=== PATIENT | male | born 1935 | race Caucasian/White ===

== ENCOUNTER → 2017-09-27 07:02 | Outpatient (CLI) | payer MEDICARE, SELFPAY ==
[2017-09-27 10:35] LABS: ALB/GLOB Ratio 0.9 RATIO (0.9-2.4); AST(SGOT) 18 U/L (15-37); Alanine Aminotransfer ALT/SGPT 17 U/L (16-61); Albumin, Serum 3.4 g/dL (3.2-5.0); Alkaline Phosphatase 102 U/L (45-117); Anion Gap 7 (5-15); BUN 16 mg/dL (7-18); BUN/Creat Ratio 14.2 RATIO (10-20); Bilirubin, Direct 0.16 mg/dL (0.00-0.30); Calcium,Total 8.9 mg/dL (8.5-10.1); Chloride 102 mmol/L (98-107); Cholesterol 139 mg/dL (200); Creatinine, Serum 1.13 mg/dL (0.70-1.30); EST Glomerular Filtration Rate 66 mL/min (>60); Est Glom Filt Rate - Afr Amer 80 mL/min (>60); Globulin 3.7 g/dL (2.2-4.2); Glucose 81 mg/dL (74-106); High Density Lipoprotein 40 mg/dL; Potassium 4.5 mmol/L (3.5-5.1); Protein, Total 7.1 g/dL (6.4-8.2); Sodium Level 139 mmol/L (136-145); Triglycerides 187 mg/dL; Very Low Density Lipoprotein 37 mg/dL (5-40)
== END ==
PROVIDERS: Family Provider Family Medicine; PCP Family Medicine; Visit Provider Family Medicine
DX: I25.10 Atherosclerotic heart disease of native coronary artery without angina pectoris (principal); I70.219 Atherosclerosis of native arteries of extremities with intermittent claudication, unspecified extremity; I49.1 Atrial premature depolarization; I45.10 Unspecified right bundle-branch block; E78.5 Hyperlipidemia, unspecified; R00.2 Palpitations; Z95.1 Presence of aortocoronary bypass graft; Z79.899 Other long term (current) drug therapy
CPT/HCPCS: 36415; 80053; 80061; 82248

== ENCOUNTER → 2017-10-05 09:14 | Outpatient (CLI) | payer MEDICARE, SELFPAY ==
--- NOTE | 2017-10-05 09:14 | DT_ITS ---
This patient was seen during an EMR downtime October 02, 2017 - October 09, 2017. This patient may have a combination of paper and electronic documentation or all paper documentation. All documentation is viewable within the e-chart portion of [employer] for each patient visit.
--- NOTE | 2017-10-05 09:19 | RAD_ITS ---
STUDY: X-RAY CHEST REASON FOR EXAM: Male, 81 years old. COPD. TECHNIQUE: PA and lateral views of the chest. COMPARISON: Chest, April 14, 2017. CT of the chest, April 18, 2017. FINDINGS: The lungs are mildly hyperexpanded. There is chronic density in the left midlung consistent with thickening of the oblique fissure as seen on the CT scan. There is left-sided pleural thickening with blunting left costophrenic angle unchanged from prior exam Sternal cerclage wires are present from a prior sternotomy. The heart is normal in size. Normal mediastinum and gareth. Normal visualized pulmonary arteries. There is atherosclerotic calcification of the aortic arch with tortuosity. There are diffuse degenerative changes of the visualized thoracic spine. There is degenerative osteoarthritis of the bilateral shoulders. There is no demonstrated abnormality of the visualized soft tissue structures of the upper abdomen. RAD/Chest PA and Lateral IMPRESSION: 1. Stable density in the left mid lung. This correlates with an area of thickening along the oblique fissure seen on the CT scan. 2. Stable left pleural thickening. 3. Evidence of prior median sternotomy. Electronically Signed: Conrad Tony DO at 10:23 EDT Tel [phone], Service support ,
== END ==
PROVIDERS: Family Provider Family Medicine; PCP Family Medicine; Visit Provider Family Medicine
DX: J44.1 Chronic obstructive pulmonary disease with (acute) exacerbation (principal)
CPT/HCPCS: 71046

== ENCOUNTER → 2018-10-15 | Outpatient (CLI) | payer MEDICARE, SELFPAY ==
[2018-04-06 09:00] VITALS: BMI 29.5
[2018-10-15 11:09] LABS: AST(SGOT) 19 U/L (15-37); Alanine Aminotransfer ALT/SGPT 20 U/L (16-61); Albumin, Serum 3.2 g/dL (3.2-5.0); Alkaline Phosphatase 82 U/L (45-117); Bilirubin, Direct 0.15 mg/dL (0.00-0.30); Cholesterol 154 mg/dL (200); Globulin 3.7 g/dL (2.2-4.2); High Density Lipoprotein 42 mg/dL; Protein, Total 6.9 g/dL (6.4-8.2); Triglycerides 223 mg/dL; Very Low Density Lipoprotein 45 mg/dL (5-40)
== END | disposition home or self-care (01) ==
PROVIDERS: Family Provider Family Medicine; PCP Family Medicine; Referring Provider Internal Medicine Cardiovascular Disease; Visit Provider Internal Medicine Cardiovascular Disease
DX: I70.219 Atherosclerosis of native arteries of extremities with intermittent claudication, unspecified extremity (principal); E78.5 Hyperlipidemia, unspecified
CPT/HCPCS: 36415; 80061; 80076

== ENCOUNTER → 2018-11-05 | Outpatient (CLI) | payer MEDICARE, SELFPAY ==
[2018-11-05 14:23] VITALS: BMI 30.5
--- NOTE | 2018-11-05 15:08 | RAD_ITS ---
STUDY: X-RAY CHEST REASON FOR EXAM: Male, 83 years old. Shortness of breath. Dyspnea. TECHNIQUE: Frontal and lateral views of the chest. COMPARISON: October 05, 2017 FINDINGS: Stable hyperexpansion, mild diffuse interstitial pattern and noncalcified partially imaged opacity in the left midlung zone. Stable left pleural thickening. Cardiomegaly with sternotomy wires unchanged. Normal mediastinum and gareth. Normal visualized pulmonary arteries. Aortic tortuosity with calcification unchanged. Stable thoracic spondylosis. Normal visualized ribs, clavicles, and shoulders. There is no demonstrated abnormality of the visualized soft tissue structures of the upper abdomen. RAD/Chest PA and Lateral IMPRESSION: Stable appearance of the chest with no acute finding. Electronically Signed: Ned Gonzales MD at 15:37 EDT , Service support ,
== END | disposition home or self-care (01) ==
LOC: RAD 15:07
PROVIDERS: Family Provider Family Medicine; PCP Family Medicine; Referring Provider Internal Medicine Cardiovascular Disease; Visit Provider Internal Medicine Cardiovascular Disease
DX: I25.10 Atherosclerotic heart disease of native coronary artery without angina pectoris (principal); R60.9 Edema, unspecified; Z95.1 Presence of aortocoronary bypass graft
CPT/HCPCS: 71046

== ENCOUNTER → 2018-11-22 | Outpatient (CLI) | payer MEDICARE, SELFPAY ==
[2018-11-05 14:23] VITALS: BMI 30.5
[2018-11-22 10:20] LABS: Hematocrit 42.5 % (40-54); Hemoglobin 14.3 g/dL (13.0-16.5); Mean Corp Hgb Conc 33.6 g/dL (32-36); Mean Corpuscular Hgb 31.4 pg (27.0-32.0); Mean Corpuscular Volume 93.2 fL (80-94); Mean Platelet Vol. 9.3 fl (6.2-12.0); Platelet Count 279 K/mm3 (150-450); RBC Distribution Width CV 13.4 % (11.6-14.6); RBC Distribution Width SD 46.1 fl (35.1-43.9); Red Blood Count 4.56 M/mm3 (4.6-6.2); White Blood Count 9.1 K/mm3 (4.4-11.0)
[2018-11-22 10:34] LABS: BNP,B-Type NATRIURETIC PEPTIDE 73.5 pg/mL (0-100)
[2018-11-22 10:35] LABS: ALB/GLOB Ratio 0.8 RATIO (0.9-2.4); AST(SGOT) 18 U/L (15-37); Alanine Aminotransfer ALT/SGPT 19 U/L (16-61); Albumin, Serum 3.2 g/dL (3.2-5.0); Alkaline Phosphatase 85 U/L (45-117); Anion Gap 8 (5-15); BUN 25 mg/dL (7-18); BUN/Creat Ratio 19.8 RATIO (10-20); Calcium,Total 9.6 mg/dL (8.5-10.1); Chloride 103 mmol/L (98-107); Creatinine, Serum 1.26 mg/dL (0.70-1.30); EST Glomerular Filtration Rate 58 mL/min (>60); Est Glom Filt Rate - Afr Amer 71 mL/min (>60); Glucose 85 mg/dL (74-106); Magnesium 2.1 mg/dL (1.6-2.6); Potassium 4.6 mmol/L (3.5-5.1); Protein, Total 7.2 g/dL (6.4-8.2); Sodium Level 139 mmol/L (136-145); Thyroid Stim Hormone (TSH) 1.32 uIU/mL (0.358-3.74)
== END | disposition home or self-care (01) ==
PROVIDERS: Family Provider Family Medicine; PCP Family Medicine; Referring Provider Internal Medicine Cardiovascular Disease; Visit Provider Internal Medicine Cardiovascular Disease
DX: E07.9 Disorder of thyroid, unspecified (principal); M79.89 Other specified soft tissue disorders; J44.1 Chronic obstructive pulmonary disease with (acute) exacerbation; I70.219 Atherosclerosis of native arteries of extremities with intermittent claudication, unspecified extremity; R60.9 Edema, unspecified; Z95.1 Presence of aortocoronary bypass graft
CPT/HCPCS: 36415; 80053; 83735; 83880; 84443; 85027

== ENCOUNTER → 2018-11-27 | Outpatient (CLI) | payer MEDICARE, SELFPAY ==
[2018-11-05 14:23] VITALS: BMI 30.5
--- NOTE | 2018-11-27 10:50 | ECHOCS_ITS ---
Reason For Study: DYSPNEA/SOB Procedure This was a 2D Doppler, Color Flow transthoracic echocardiogram. The study was technically difficult. Contrast injection was performed. Exam performed in department. Left Ventricle Normal LV size. Left ventricular systolic function is normal. The estimated ejection fraction is 60 %. No evidence for diastolic dysfunction. No regional wall motion abnormalities noted. Right Ventricle Normal RV size. Normal systolic function. Atria Normal left atrium. Normal right atrium. No doppler evidence for ASD. Mitral Valve There is no mitral annular calcification. Normal mitral valve. Trivial mitral valve insufficiency. Tricuspid Valve Normal tricuspid valve. Trivial tricuspid valve insufficiency. Right ventricular systolic pressure estimated to be 24 mmHg. Aortic Valve Mild diffuse aortic valve thickening. Mild (1+) aortic valve insufficiency. Pulmonic Valve The pulmonic valve is not well visualized. Great Vessels Mildly dilated aortic root. Pericardium/Pleural No pericardial effusion. Medication 22 gauge I.V. with prn adaptor inserted into right arm. Diluted definity 5ml given slow IV push to enhance endocardial definition. MMode/2D Measurements & Calculations LVIDd: 4.7 cm IVSd: 1.1 cm Ao root diam: 3.9 cm LVIDs: 2.8 cm LVPWd: 1.1 cm FS: 39.9 % LAV(MOD-bp): 45.7 ml LVAd ap4: 26.6 cm2 SV(MOD-sp4): 53.2 ml LAV(MOD-bp) Indexed: 20.8 ml/m2 EDV(MOD-sp4): 81.3 ml LAV(MOD-sp2): 52.2 ml EDV(sp4-el): 86.0 ml LAV(MOD-sp4): 34.3 ml LVAs ap4: 14.3 cm2 ESV(MOD-sp4): 28.2 ml ESV(sp4-el): 28.0 ml EF(MOD-sp4): 65.4 % EF(sp4-el): 67.5 % SV(sp4-el): 58.0 ml LA A4 area: 14.2 cm2 LA dimension(2D): 4.1 cm RA A4 area: 14.5 cm2 Time Measurements MV dec time: 0.24 sec Doppler Measurements & Calculations MV E max mani: 37.7 cm/sec Lat Peak E' Mani: 7.2 cm/sec Med Peak E' Mani: 4.8 cm/sec MV A max mani: 69.9 cm/sec E/E' lat: 5.2 E/E' med: 7.8 MV E/A: 0.54 Ao V2 max: 106.8 cm/sec LV V1 max: 105.8 cm/sec PA V2 max: 65.1 cm/sec Ao max P.6 mmHg LV V1 max P.5 mmHg TR max mani: 226.6 cm/sec TR max P.5 mmHg Interpretation Summary The study was technically difficult. Contrast injection was performed. Left ventricular systolic function is normal. The estimated ejection fraction is 60 %. Trivial mitral valve insufficiency. Trivial tricuspid valve insufficiency. Mild diffuse aortic valve thickening. Mild (1+) aortic valve insufficiency. Mildly dilated aortic root. Right ventricular systolic pressure estimated to be 24 mmHg. No evidence for diastolic dysfunction. Ordering Physician: Garth Troy Referring Physician: MARIELA MARINO Performed By: Eda Watts RDCS
== END | disposition home or self-care (01) ==
PROVIDERS: Family Provider Family Medicine; PCP Family Medicine; Referring Provider Internal Medicine Cardiovascular Disease; Visit Provider Internal Medicine Cardiovascular Disease
DX: R06.00 Dyspnea, unspecified (principal); R06.02 Shortness of breath; I25.10 Atherosclerotic heart disease of native coronary artery without angina pectoris
CPT/HCPCS: 93306; Q9957; A4216; C8929

== ENCOUNTER → 2019-11-06 07:09 | Outpatient (CLI) | payer MEDICARE, SELFPAY ==
[2019-05-16 10:04] VITALS: BMI 30.1
[2019-11-06 10:32] LABS: AST(SGOT) 18 U/L (15-37); Alanine Aminotransfer ALT/SGPT 19 U/L (16-61); Albumin, Serum 3.3 g/dL (3.2-5.0); Alkaline Phosphatase 73 U/L (45-117); Bilirubin, Direct 0.15 mg/dL (0.00-0.30); Cholesterol 163 mg/dL (200); Globulin 3.8 g/dL (2.2-4.2); High Density Lipoprotein 39 mg/dL; Protein, Total 7.1 g/dL (6.4-8.2); Triglycerides 334 mg/dL; Very Low Density Lipoprotein 67 mg/dL (5-40)
== END ==
PROVIDERS: PCP Family Medicine; Referring Provider Internal Medicine Cardiovascular Disease; Visit Provider Internal Medicine Cardiovascular Disease
DX: E78.5 Hyperlipidemia, unspecified (principal)
CPT/HCPCS: 36415; 80061; 80076

== ENCOUNTER → 2019-12-02 08:49 | Outpatient (CLI) | payer MEDICARE, SELFPAY ==
[2019-11-11 15:35] VITALS: BMI 30.4
--- NOTE | 2019-12-02 08:49 | ECHOCS_ITS ---
Reason For Study: CAD Procedure This was a 2D Doppler, Color Flow transthoracic echocardiogram. The study was technically difficult. Contrast injection was performed. Exam performed in department. Left Ventricle Normal LV size. Left ventricular systolic function is normal. The estimated ejection fraction is 65 %. No evidence for diastolic dysfunction. No regional wall motion abnormalities noted. Right Ventricle Normal RV size. Normal systolic function. Atria Normal left atrium. Normal right atrium. No doppler evidence for ASD. Mitral Valve There is no mitral annular calcification. Normal mitral valve. Trivial mitral valve insufficiency. Tricuspid Valve Normal tricuspid valve. Trivial tricuspid valve insufficiency. Right ventricular systolic pressure estimated to be 33 mmHg. Aortic Valve Trisinus/trileaflet aortic valve. Mild focal aortic valve calcification. Trivial aortic valve insufficiency. Pulmonic Valve The pulmonic valve is not well visualized. Great Vessels Mildly dilated aortic root. Pericardium/Pleural No pericardial effusion. Medication 22 gauge I.V. with prn adaptor inserted into right arm. Diluted definity 2.0ml given slow IV push to enhance endocardial definition. MMode/2D Measurements & Calculations LVIDd: 4.6 cm IVSd: 0.85 cm Ao root diam: 4.0 cm LVIDs: 2.4 cm LVPWd: 0.90 cm FS: 49.1 % LAV(MOD-sp4): 31.3 ml LVAd ap4: 29.1 cm2 SV(MOD-sp4): 55.1 ml EDV(MOD-sp4): 87.3 ml EDV(sp4-el): 89.5 ml LVAs ap4: 16.0 cm2 ESV(MOD-sp4): 32.2 ml ESV(sp4-el): 34.0 ml EF(MOD-sp4): 63.1 % EF(sp4-el): 62.1 % SV(sp4-el): 55.6 ml LA A4 area: 14.5 cm2 LA dimension(2D): 3.9 cm Time Measurements MV dec time: 0.23 sec Doppler Measurements & Calculations MV E max mani: 68.0 cm/sec Lat Peak E' Mani: 5.0 cm/sec Med Peak E' Mani: 5.4 cm/sec MV A max mani: 86.5 cm/sec E/E' lat: 13.5 E/E' med: 12.7 MV E/A: 0.79 Ao V2 max: 121.4 cm/sec LV V1 max: 110.7 cm/sec TR max mani: 271.9 cm/sec Ao max P.9 mmHg LV V1 max P.9 mmHg TR max P.1 mmHg Interpretation Summary The study was technically difficult. Contrast injection was performed. Left ventricular systolic function is normal. The estimated ejection fraction is 65 %. Trivial mitral valve insufficiency. Trivial tricuspid valve insufficiency. Mild focal aortic valve calcification. Trivial aortic valve insufficiency. Mildly dilated aortic root. Right ventricular systolic pressure estimated to be 33 mmHg. No evidence for diastolic dysfunction. Ordering Physician: Garth Troy Referring Physician: MARIELA MARINO Performed By: Li Boland, RASHEEDCS, RVT
== END ==
PROVIDERS: PCP Family Medicine; Referring Provider Internal Medicine Cardiovascular Disease; Visit Provider Internal Medicine Cardiovascular Disease
DX: I25.10 Atherosclerotic heart disease of native coronary artery without angina pectoris (principal); R07.9 Chest pain, unspecified; I70.219 Atherosclerosis of native arteries of extremities with intermittent claudication, unspecified extremity; R00.1 Bradycardia, unspecified; E78.5 Hyperlipidemia, unspecified; Z95.1 Presence of aortocoronary bypass graft
CPT/HCPCS: 93306; Q9957; A4216; C8929

== ENCOUNTER → 2020-02-20 09:01 | Outpatient (CLI) | payer MEDICARE, SELFPAY ==
[2019-11-11 15:35] VITALS: BMI 30.4
--- NOTE | 2020-02-20 09:06 | RAD_ITS ---
HISTORY: PATIENT FELL ABOUT 1 WEEK AGO AND STRAINED NECK. PAIN IN LEFT SIDE OF NECK, PATIENT STATES HAS HAD A HEADACHE SINCE THEN WELL. ADDITIONAL HISTORY: None provided. EXAMINATION/TECHNIQUE: XR Spine Cervical 4 or 5 Views Number of images including paperwork: 7 COMPARISON: None FINDINGS: VERTEBRAE: No acute fracture. VERTEBRAL ALIGNMENT: No traumatic subluxation. DISKS AND JOINTS: Moderate discogenic degenerative changes at C5-6 and C6-7. Mild discogenic degenerative changes elsewhere in the cervical spine. Facet arthropathy and uncovertebral degenerative changes. Moderate multilevel bilateral foraminal stenosis. SOFT TISSUES: Unremarkable paraspinous soft tissues. Cardiovascular calcifications. RAD/Cerv Spine 4 or 5 Views IMPRESSION: 1. No acute osseous abnormality. 2. Cervical spondylosis. at 0011 Reported and signed by: Carrie Jones MD Electronically Signed: Carrie Jones MD at 0:11 EDT Tel , Service support ,
== END ==
LOC: MTRAD 09:03
PROVIDERS: PCP Family Medicine; Referring Provider Family Medicine; Visit Provider Family Medicine
DX: M54.2 Cervicalgia (principal)
CPT/HCPCS: 72050

== ENCOUNTER 2020-02-26 17:39 | Observation (INO) | payer MEDICARE, SELFPAY ==
[2019-11-11 15:35] VITALS: BMI 30.4
[2020-02-26] VITALS (11 sets, daily range): BP systolic 178–217; BP diastolic 82–103; PULSE 63–74; RESP 18–26; TEMP 36.3–36.7; O2SAT 94–98; BMI 30.4; BMI 29.8
--- NOTE | 2020-02-26 17:42 | CT_ITS ---
STUDY: CT BRAIN WITHOUT CONTRAST REASON FOR EXAM: Male, 84 years old. Altered mental status. Stroke alert. RADIATION DOSAGE (If Supplied By Facility): CTDIvol = ( 44.99 ) mGy, DLP = ( 863.60 ) mGycm TECHNIQUE: Transaxial CT imaging of the brain was performed without administration of intravenous contrast material. Individualized dose optimization techniques were used for this CT. COMPARISON: None. FINDINGS: There is no acute bleed or infarct. There are chronic ischemic and atrophic changes. The ventricles are normal in configuration. There is no hydrocephalus. The visualized paranasal sinuses are clear. The mastoid air cells are well aerated. There is no skull fracture. CT/Brain/Head without Contrast IMPRESSION: No acute intracranial abnormality. Chronic ischemic and atrophic changes. N.B. : The above information has been verbally conveyed by Vasu Sierra to Carlitos Angulo on 02/26/2020 18:02:00 (ET). Electronically Signed: Vasu Sierra, at 18:03 EDT Tel , Service support ,
--- NOTE | 2020-02-26 17:42 | EKG12_ITS ---
Test Reason : STROKE Blood Pressure : / mmHG Vent. Rate : 067 BPM Atrial Rate : 067 BPM P-R Int : 174 ms QRS Dur : 160 ms QT Int : 412 ms P-R-T Axes : 067 009 035 degrees QTc Int : 435 ms Normal sinus rhythm Right bundle branch block Abnormal ECG Confirmed by APRIL MACHUCA, SHAZIA ([id number]), social media editor RONDA BLAIR ([id number]) on 03/05/2020 12:45:26 PM Referred By: Kashif Kuhn Confirmed By:TIEN CHEN MD
--- NOTE | 2020-02-26 17:42 | CT_ITS ---
STUDY: CTA HEAD AND NECK WITH CONTRAST REASON FOR EXAM: Male, 84 years old. CVA RADIATION DOSAGE (If Supplied By Facility): CTDIvol = ( 28.25 ) mGy, DLP = ( 779.24 ) mGycm TECHNIQUE: CT angiography was performed with a multi-detector CT scanner. Data acquisition was obtained from the skull base through the vertex following intravenous administration of IV 100mL Isovue-370. MIP images were reconstructed from the axial data set. Post-processing of the angiographic images was performed, with multiplanar reformation and 3D reconstruction. Individualized dose optimization techniques were used for this CT. COMPARISON: Head CT dated February 26, 2020 FINDINGS: Normal bilateral petrous carotid arteries. There is calcified plaque formation of the right cavernous carotid artery, with a mild stenosis (less than 50%). There is calcified plaque formation of the left cavernous carotid artery, with a mild stenosis (less than 50%). Normal right A1 segments of the anterior cerebral artery. Normal left A1 segments of the anterior cerebral artery. Normal intact anterior communicating artery (ACOM). Normal bilateral A2 segments of the anterior cerebral arteries. Normal right M1 and M2 segments of the middle cerebral arteries, with a normal M1 bifurcation. Normal left M1 and M2 segments of the middle cerebral arteries, with a normal M1 bifurcation. There is non-visualization of the right posterior communicating artery (PCOM). There is non-visualization of the left posterior communicating artery (PCOM). Normal bilateral vertebral arteries. Normal basilar artery with a normal basilar bifurcation. The visualized bilateral superior cerebellar (SCA) arteries are normal. Normal bilateral P1, P2 and visualized P3 segments of the posterior cerebral arteries. There is no demonstrated aneurysm of the [place] of [place] or hemodynamically significant stenosis of the major intracranial arteries. NECK: Median sternotomy and CABG changes. AORTIC ARCH: There is atherosclerotic calcific plaque formation of the aortic arch and great vessels arising from the aortic arch, without a hemodynamically significant stenosis. There is a normal origin of the brachiocephalic, left common carotid, and left subclavian arteries. Normal origins of the brachiocephalic and left common carotid. Mild atherosclerotic plaque is present at the subclavian origin. RIGHT CAROTID ARTERIES: Normal right common carotid artery (CCA). There is extensive atherosclerotic plaque formation with severe narrowing of the right carotid bulb with a hemodynamically significant stenosis. There is mild atherosclerotic plaque formation of the origin of the right internal carotid artery with less than 50% cross sectional diameter stenosis. Normal visualized cervical portion of the right internal carotid artery. Normal origin of the right external carotid artery (ECA). LEFT CAROTID ARTERIES: There is moderate atherosclerotic plaque formation of the common carotid artery, with a 50-70% focal stenosis. There is moderate atherosclerotic plaque formation with moderate narrowing of the carotid bulb. There is mild atherosclerotic plaque formation of the origin of the left internal carotid artery with less than 50% cross sectional diameter stenosis. Normal visualized cervical portion of the left internal carotid artery. Normal origin of the left external carotid artery (ECA). VERTEBRAL ARTERIES: Normal bilateral vertebral arteries. The visualized soft tissue structures of the neck are unremarkable. Degenerative changes are seen in the cervical spine. 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 CT/CTA Head AND Neck W/ Contrast IMPRESSION: 1. There is no demonstrated aneurysm of the [place] of [place] or hemodynamically significant stenosis of the major intracranial arteries.. 2. There is extensive atherosclerotic plaque formation with severe narrowing of the right carotid bulb with a hemodynamically significant stenosis. 3. There is moderate atherosclerotic plaque formation of the common carotid artery, with a 50-70% focal stenosis. There is moderate atherosclerotic plaque formation with moderate narrowing of the carotid bulb. N.B. : The above information has been verbally conveyed by Colton Velázquez MD to Carlitos Nicole DO, MD, on 02/26/2020 18:21:53 (ET). Electronically Signed: Colton Velázquez MD at 18:23 EDT , Service support ,
--- NOTE | 2020-02-26 17:43 | ED.VIS.STROK ---
History of Present Illness Chief Complaint: Neuro S/Sx Informant: Patient Onset: Today Timing: Continuous Quality and Location: Right Arm Parasthesia, Right Leg Parasthesia, Expressive Aphasia Onset: 30 minutes prior to arrival Current Severity: Gone Associated Symptoms: Headache. Negative for: Nausea, Vomiting, Chest Pain Narrative: Patient is an 84-year-old male who presents with expressive aphasia and paresthesias to his right upper and lower extremity that began today approximately 30 minutes prior to arrival. Patient admits to some mild weakness of his right upper and lower extremities. Patient states his symptoms have now completely resolved. reports that the patient was having some drooping of his right eyelid. Patient denies any visual changes. Patient denies any headaches. Patient denies any chest pain or shortness of breath. Capacity - Capacity Assessment Tool Can the patient make a choice & communicate that choice?: Yes Can the patient understand benefits, risks and alternatives?: Yes Can the patient make a logical, rational choice?: Yes Is the choice the patient makes consistent w/ their values?: Yes Past Medical History - Allergies and Home Meds Allergies/Adverse Reactions: Allergies Penicillins Allergy (Verified 02/26/20 19:00) [facility] Primary Care Physician: Carlitos King MD [Primary Care Provider] - Surgical History: coronary bypass surgery - x 4., - - ORIF right femur fracture using long intramedullary raulito. Smoking Status: Former smoker - Family History Paternal Family History: Family History (Last Reviewed 11/11/19 @ 15:37 by Sis Patel) Father Myocardial infarction, Onset Age: 68 Brother CAD (coronary artery disease) Myocardial infarction Hx of CABG Brother CHF (congestive heart failure) Family History: Reports: - Maternal Family History: Family History (Last Reviewed 11/11/19 @ 15:37 by Sis Patel) Father Myocardial infarction, Onset Age: 68 Brother CAD (coronary artery disease) Myocardial infarction Hx of CABG Brother CHF (congestive heart failure) Family History: Reports: No pertinent history Review of Systems General: Denies: Chills, Fever Eyes: Denies: Visual changes - bilaterally, Blurred Vision - bilaterally Cardiovascular: Denies: Chest pain, Palpitations Respiratory: Denies: Dyspnea, Cough Gastrointestinal: Denies: Nausea, Vomiting Genitourinary: Denies: Dysuria, Hematuria Musculoskeletal: Denies: Neck pain, Back pain Skin: Denies: Rash, Abscess Neurological: Reports: Headache Allergy: Denies: Uticaria, Swelling of the mouth STROKE Inital Vital Signs reviewed: Yes General: Well nourished, Well developed Head: Normocephalic, Atraumatic Eyes: Perrl, EOMI ENT: Moist mucous membranes Neck: Supple, No JVD Cardiovascular: Regular rate, Regular rhythm Respiratory: No distress, CTA bilaterally Abdomen: Soft, Nontender, Nondistended, Normal bowel sounds Neurological: Alert, Oriented x3, Cranial nerves II-XII grossly intact, Normal Strength, Normal Sensation Psychological: Normal affect, Normal Mood Diagnostic/Tx/Re-eval CT scan of the brain was obtained. There is no acute infarct or bleed. CTA of the head and neck was obtained. There is severe narrowing of the right carotid bulb with hemodynamically significant stenosis. There is moderate plaque formation of the left carotid artery with 50 to 70% focal stenosis. This was interpreted by the radiologist and reviewed by myself. Chest X-Ray - ED: 1 View, Chronic Changes - Rhythm Strip Rhythm Strip: Sinus Rhythm Rate: 67 Ectopy: None - EKG Initial EKG Interpretation: Sinus Rhythm, RBBB Prior: Unchanged - Medical Decision Making Stroke Team Activated: Yes Reviewed Inclusion/Exclusion criteria: Yes Was Patient considered for Endovascular Intervention?: No IV Alteplase (t-PA) Administered: No Stroke neurologist from [facility] evaluated the patient remotely. Since the patient's symptoms have resolved, this is a TIA and TPA is not indicated. Patient will be admitted for TIA work-up. Case was discussed with Dr. Kuhn. He will admit the patient to his service. Patient understood and was agreeable with the plan. All questions were answered. Critical care time (excluding procedures): 30-74 minutes ED Disposition - Plan for ED Patient: Disposition: Acute Care Hospital [facility] Diagnosis: Transient ischemic attack Referrals: Carlitos King MD [Primary Care Provider] -
[2020-02-26 17:51] LABS: Absolute Lymphocyte Count 2.04 X10^3/uL (0.83-4.51); Absolute Neutrophil Count 5.4 X10^3/uL (2.0-7.7); Basophil# 0.04 X10^3/uL; Basophil% 0.5 % (0-1); Eosinophil# 0.11 X10^3/uL; Eosinophils% 1.3 % (0-5); Hematocrit 44.8 % (40-54); Hemoglobin 15.2 g/dL (13.0-16.5); Lymphocyte # 2.04 X10^3/ul (4.0); Lymphocyte % 23.7 % (19-41); Mean Corp Hgb Conc 33.9 g/dL (32-36); Mean Corpuscular Hgb 31.8 pg (27.0-32.0); Mean Corpuscular Volume 93.7 fL (80-94); Mean Platelet Vol. 9.1 fl (6.2-12.0); Monocyte# 0.97 X10^3/uL; Monocyte% 11.3 % (0-10); NRBC Flagged by Analyzer 0 % (0-5); Neutrophil # 5.42 X10^3/uL (2.7-7.7); Neutrophil % 62.9 % (47-70); Platelet Count 245 K/mm3 (150-450); RBC Distribution Width CV 13.7 % (11.6-14.6); RBC Distribution Width SD 46.5 fl (35.1-43.9); Red Blood Count 4.78 M/mm3 (4.6-6.2); White Blood Count 8.6 K/mm3 (4.4-11.0)
[2020-02-26] MEDS: Labetalol (Prefilled) 20 MG/4 ML IV (17:55)
[2020-02-26 18:04] LABS: Partial Thromboplast Time 31.6 Seconds (24.1-36.2); Prothrombin Time (Protime)PT. 12.5 SECONDS (11.7-14.9)
[2020-02-26 18:08] LABS: Anion Gap 0 (5-15); BUN 17 mg/dL (7-18); BUN/Creat Ratio 13.8 RATIO (10-20); Calcium,Total 9.5 mg/dL (8.5-10.1); Chloride 104 mmol/L (98-107); Creatinine, Serum 1.23 mg/dL (0.70-1.30); EST Glomerular Filtration Rate 60 mL/min (>60); Est Glom Filt Rate - Afr Amer 72 mL/min (>60); Estimated Creatinine Clearance 50.82 ml/min; Glucose 104 mg/dL (74-106); Potassium 4.3 mmol/L (3.5-5.1); Sodium Level 137 mmol/L (136-145)
--- NOTE | 2020-02-26 18:10 | CM.ED ---
Social Work Responding to stroke alert. Patient spouse not present and went home per nursing staff. Nursing staff reporting that patient spouse presenting as appropriate. Telephone call to patient spouse, Lea. No answer. Voicemail left. Jessie CASTILLO, VALENTÍN
--- NOTE | 2020-02-26 18:20 | ED.RN ---
called naif at [phone], left message to call [facility] at [phone] and pt will be admitted for further testing.
--- NOTE | 2020-02-26 18:28 | ED.RN ---
PT'S CALLED BACK AND WAS UPDATED ON PT'S CONDITION, PER DR. WASHBURN AND RADIOLOGIST NO ACUTE STROKE, NO LARGE VESSEL OCCLUSION, SOME STENOSIS IN CAROTIDS LEFT WORSE THAN RIGHT. THEN WANTED DR. WASHBURN UPDATED ON PT'S FALL ON 02/05/20, PT FELL BACKWARDS IN GARAGE, DUE TO LOSS OF BALANCE, ATTEMPTING TO GET ON CHIEF CHEMIST. PT DID FOLLOW UP W/DR. MARINO AND HAD NECK X-RAY, NEGATIVE PER ON NECK X-RAY.
--- NOTE | 2020-02-26 18:35 | RAD_ITS ---
STUDY: X-RAY CHEST REASON FOR EXAM: Male, 84 years old. PT LAST KNOWN WELL 1700, PT ARRIVED 1737 IN ROOM 8 C/O SLURRED SPEECH, DIFFICULTY WITH MEMORY, RIGHT EYE DROOP PER PT''S . TECHNIQUE: Single AP portable view of the chest. COMPARISON: November 05, 2018 FINDINGS: Reidentification of mild to moderate chronic interstitial fibrosis and scarring of the left lower lobe. No new infiltrate or opacity is seen in either lung. Sternal cerclage wires and vascular clips are present from a prior sternotomy and coronary artery bypass graft procedure (CABG). Normal heart size. The remaining structures are stable. RAD/Chest 1 View IMPRESSION: 1. Reidentification of mild to moderate chronic interstitial fibrosis and scarring of the left lower lobe. No new infiltrate or opacity is seen in either lung. Electronically Signed: Colton Velázquez MD at 19:25 EDT , Service support ,
--- NOTE | 2020-02-26 19:07 | HP.PCM_ITS ---
Problem List (1) Transient ischemic attack Status: Acute (2) COPD (chronic obstructive pulmonary disease) Status: Chronic (3) Atherosclerosis of [place] arteries of extremity with intermittent claudication Status: Chronic Qualifiers: Peripheral atherosclerosis location: unspecified extremity Qualified Code(s): I70.219 - Atherosclerosis of [place] arteries of extremities with intermittent claudication, unspecified extremity Comment: CABG x4- MANZO to LAD, SVG to PDA, SVG to diagonal 1, SVG to post ventricular branch of the RCA 07/07/00 (4) Aortocoronary bypass status Status: Chronic Comment: CABG x4- MANZO to LAD, SVG to PDA, SVG to diagonal 1, SVG to post ventricular branch of the RCA 07/07/00 (5) Atherosclerotic heart disease of [place] coronary artery without angina pectoris Status: Chronic Qualifiers: [place] vs. transplanted heart: [place] heart Qualified Code(s): I25.10 - Atherosclerotic heart disease of [place] coronary artery without angina pectoris (6) Hyperlipidemia Status: Chronic Qualifiers: Hyperlipidemia type: unspecified Qualified Code(s): E78.5 - Hyperlipidemia, unspecified History of Present Illness Date of Admission: 02/26/20 Chief Complaint: Slurred speech, paresthesia. The patient is a 84 year old M with past medical history as mentioned above presented to the emergency room because of difficulty speaking and paresthesia. Patient was kind of poor informant and he gave me a different story that he gave to the emergency room physician. According to the patient, at around 2 PM, he noticed that he is not thinking right, having difficulty getting the words out and started having numbness and tingling on both hands. He informed the ER physician that he had numbness and tingling on the right arm and leg. To me, he denied focal weakness of upper or lower extremities. He complained of headache which started around the same time, no associated symptoms. Currently, he thinks that his speech is back to normal. He had a history of CAD status post CABG and he has been stable on aspirin, statins and beta-blockers. He had a history of COPD, never been on oxygen but has been on albuterol inhaler as needed at home. He had a history of hyperlipidemia and he has been on statins. In the emergency department, initial blood pressure was elevated, other vital signs were stable. Routine blood work was unremarkable. CT scan brain showed no acute infarct or hemorrhage. EKG revealed normal sinus rhythm with RBBB which is chronic, no acute changes. Troponin was negative. Chest x-ray showed no acute findings, probable left lower lobe atelectasis. CTA of the head and neck revealed significant extensive plaque formation with severe narrowing of the right carotid bulb with hemodynamically significant stenosis, moderate plaque formation of the common carotid artery with 50 to 70% stenosis. SOC teleneurology consulted and recommended that patient is not a candidate for TPA as his symptoms resolved. Patient is being admitted for TIA, carotid artery stenosis and hypertensive urgency. Past Medical History Past Medical History (Chronic Problems): Chronic Problems (Last Updated 02/26/20 @ 19:[address] Kashif Kuhn MD) COPD (chronic obstructive pulmonary disease) (Chronic) Atherosclerosis of [place] arteries of extremity with intermittent claudication (Chronic) CABG x4- MANZO to LAD, SVG to PDA, SVG to diagonal 1, SVG to post ventricular branch of the RCA 07/07/00 RBBB (Chronic) Aortocoronary bypass status (Chronic ~07/07/00) CABG x4- MANZO to LAD, SVG to PDA, SVG to diagonal 1, SVG to post ventricular branch of the RCA 07/07/00 Carotid bruit (Chronic) Atherosclerotic heart disease of [place] coronary artery without angina pectoris (Chronic) Hyperlipidemia (Chronic) Medical History: Medical History (Last Updated 02/26/20 @ 19:[address] Kashif Kuhn MD) COPD (chronic obstructive pulmonary disease) (Chronic) J44.9 Atherosclerosis of [place] arteries of extremity with intermittent claudication (Chronic) I70.219 CABG x4- MANZO to LAD, SVG to PDA, SVG to diagonal 1, SVG to post ventricular branch of the RCA 07/07/00 RBBB (Chronic) I45.10 Carotid bruit (Chronic) R09.89 Atherosclerotic heart disease of [place] coronary artery without angina pectoris (Chronic) I25.10 Hyperlipidemia (Chronic) E78.5 Depression F32.9 GERD (gastroesophageal reflux disease) K21.9 Right femoral fracture S72.91XA Fall (Inactive) W19.XXXA Hip fracture (Inactive) S72.009A Insomnia (Inactive) G47.00 Allergies Penicillins Allergy (Verified 02/26/20 19:00) Hives Home Medications: Ambulatory Orders Medication Instructions Recorded Aspirin [Aspirin, Baby] 81 mg PO QHS 04/10/17 escitalopram oxalate 5 mg tablet 5 mg PO QDAY 10/11/17 lansoprazole 30 mg capsule,delayed 30 mg PO DAILY PRN PRN cap 10/11/17 release nitroglycerin 0.4 mg sublingual 0.4 mg SUBLINGUAL Q5-15M PRN #25 10/03/19 tablet tab atorvastatin 40 mg tablet 40 mg PO QHS #90 tab 12/04/19 metoprolol succinate 25 mg 25 mg PO DAILY #90 tab 12/04/19 tablet,extended release 24 hr Tizanidine HCl [Zanaflex] 4 mg PO QHS 02/26/20 Surgical History: Surgical History (Last Reviewed 02/26/20 @ 19:[address] Kashif Kuhn MD) Aortocoronary bypass status (Chronic) Onset Date: ~07/07/00 Z95.1 CABG x4- MANZO to LAD, SVG to PDA, SVG to diagonal 1, SVG to post ventricular branch of the RCA 07/07/00 Hx of appendectomy Z90.49 Surgical History: coronary bypass surgery - x 4., - - ORIF right femur fracture using long intramedullary raulito. Psychiatric History: Depression Lives: Spouse/ Significant Other Smoking Status: Former smoker Alcohol: None Drugs: None - *Family History Paternal Family History: Family History (Last Reviewed 02/26/20 @ 19:[address] Kashif Kuhn MD) Father Myocardial infarction, Onset Age: 68 Brother CAD (coronary artery disease) Myocardial infarction Hx of CABG Brother CHF (congestive heart failure) History Items: - Maternal Family History: Family History (Last Reviewed 02/26/20 @ 19:[address] Kashif Kuhn MD) Father Myocardial infarction, Onset Age: 68 Brother CAD (coronary artery disease) Myocardial infarction Hx of CABG Brother CHF (congestive heart failure) Review of Systems Constitutional: Denies: Anorexia, Chills, Fever, Night Sweats, Weakness Eyes: Denies: Blurred vision, Double vision, Drainage, Redness HEENT: Reports: Hearing Changes. Denies: Difficulty Hearing, Ear Pain, Eye Pain, Nasal Congestion, Sinus Drainage Cardiovascular: Denies: Chest Pain, Chest Pressure, Chest Tightness, Heaviness, Light Headedness, Palpitations, Syncope Respiratory: Denies: Cough, Hemoptysis, Pleuritic Pain, Shortness of Breath, Sputum production, Wheezing Gastrointestinal: Denies: Abdominal Pain, Constipation, Diarrhea, Nausea, Vomiting Genitourinary: Denies: Dysuria, Frequency, Hematuria Musculoskeletal: Denies: Arm Pain, Back Pain, Foot Pain Skin: Denies: Dryness, Rash Neurological: Reports: Change in Speech, Slurred speech, Confusion, Headaches, Numbness, Tingling. Denies: Balance problems, Blurred vision, Focal weakness, Incoordination Psychiatric: Reports: Depression. Denies: Anxiety Endocrine: Denies: Change in Body Habitus, Polydipsia, Polyuria VTE Information - Inpt Only VTE Present on Admission: No VTE Mechan Device Prophylaxis: None VTE Pharm Prophylaxis ordered?: Yes Patient Problems: Active and Suspected Problems (Last Updated 02/26/20 @ 19:[address] Kashif Kuhn MD) Transient ischemic attack (Acute) - Physical Exam Vitals/I&O's: Vital Signs Temp Pulse Resp BP Pulse Ox 97.4 F L 71 19 H 185/103 H 96 02/26/20 17:40 02/26/20 18:15 02/26/20 18:15 02/26/20 18:15 02/26/20 18:15 Oxygen Delivery Method Room Air Weight: 224 lb 10.417 oz Body Mass Index (BMI) 30.4 Finger Stick Blood Glucose 137 General: Alert, Oriented x3, Cooperative, No apparent distress HEENT: Atraumatic, PERRLA, EOMI, Normocephalic Oral: Moist Mucosa, No Gingival or Mucosal Lesions/ Ulcerations Neck: Supple, No JVD, Negative Carotid Bruits, Trachea Midline, Thyroid Normal Size and Texture Lungs: Clear to auscultation, Normal air movement, No rhonchi, No wheeze, No rales, Diminished Cardiovascular: Regular rate, Regular Rhythm, Normal S1, Normal S2, PMI Normal Abdomen: Bowel Sounds Present, Soft, Non Tender, Non-Distended, No Hepato- splenomegaly Extremities: No clubbing, No cyanosis, No edema Skin: No rashes, No breakdown Lymphatic: No Cervical, Supraclavicular, or Inguinal Adenopathy Neurological: Cranial nerves II-XII grossly intact, Motor Exam 5/5 strength throughout Psych/Mental Status: Normal Affect, Appropriate, Alert and oriented to time, place, person, mood and affect Laboratory Results 02/26/20 17:42: WBC 8.6, RBC 4.78, Hgb 15.2, Hct 44.8, MCV 93.7, MCH 31.8, MCHC 33.9, RDW Std Deviation 46.5 H, RDW Coeff of Josh 13.7, Plt Count 245, MPV 9.1, Immature Gran % (Auto) 0.300, Neut % (Auto) 62.9, Lymph % (Auto) 23.7, [place] % (Auto) 11.3 H, Eos % (Auto) 1.3, Baso % (Auto) 0.5, Absolute Neuts (auto) 5.4, Absolute Lymphs (auto) 2.04, Nucleated RBC % 0 02/26/20 17:42: PT 12.5, INR 1.0, APTT 31.6 02/26/20 17:42: Sodium 137, Potassium 4.3, Chloride 104, Carbon Dioxide 33.0 H, Anion Gap 0 L, BUN 17, Creatinine 1.23, Estim Creat Clear Calc 50.82, Est GFR (MDRD) Af Amer 72, Est GFR (MDRD) Non-Af 60, BUN/Creatinine Ratio 13.8, Glucose 104, Calcium 9.5, Troponin I < 0.015 Clinical Impression(s) from Imaging Studies Brain CT 02/26/20 17:42 IMPRESSION: No acute intracranial abnormality. Chronic ischemic and atrophic changes. N.B. : The above information has been verbally conveyed by Vasu Sierra to Carlitos Angulo on 02/26/2020 18:02:00 (ET). Electronically Signed: Vasu Sierra, at 18:03 EDT Tel , Service support , ADDENDUM: 02/26/20 1810 IMPRESSION: No acute intracranial abnormality. Chronic ischemic and atrophic changes. N.B. : The above information has been verbally conveyed by Vasu Sierra to Carlitos Angulo on 02/26/2020 18:02:00 (ET). Electronically Signed: Vasu Sierra, at 18:03 EDT Tel , Service support , Head/Neck CTA 02/26/20 17:42 IMPRESSION: 1. There is no demonstrated aneurysm of the [place] or hemodynamically significant stenosis of the major intracranial arteries.. 2. There is extensive atherosclerotic plaque formation with severe narrowing of the right carotid bulb with a hemodynamically significant stenosis. 3. There is moderate atherosclerotic plaque formation of the common carotid artery, with a 50-70% focal stenosis. There is moderate atherosclerotic plaque formation with moderate narrowing of the carotid bulb. N.B. : The above information has been verbally conveyed by Colton Velázquez MD to Carlitos Nicole DO, MD, on 02/26/2020 18:21:53 (ET). Electronically Signed: Colton Velázquez MD at 18:23 EDT , Service support , ADDENDUM: 02/26/20 1830 IMPRESSION: 1. There is no demonstrated aneurysm of the [place] or hemodynamically significant stenosis of the major intracranial arteries.. 2. There is extensive atherosclerotic plaque formation with severe narrowing of the right carotid bulb with a hemodynamically significant stenosis. 3. There is moderate atherosclerotic plaque formation of the common carotid artery, with a 50-70% focal stenosis. There is moderate atherosclerotic plaque formation with moderate narrowing of the carotid bulb. N.B. : The above information has been verbally conveyed by Colton Velázquez MD to Carlitos Nicole DO, MD, on 02/26/2020 18:21:53 (ET). Electronically Signed: Colton Velázquez MD at 18:23 EDT , Service support , Current Medications Labetalol HCl (Labetalol (Prefilled) 20 Mg/4 Ml) 20 mg IV X1 PRN PRN Reason: BLOOD PRESSURE Last Admin: 02/26/20 17:55 Dose: 20 mg Documented by: Assessment/Plan All Active Problems (Last Updated 02/26/20 @ 19:[address] Kashif Kuhn MD) Transient ischemic attack (Acute) This is an 84 years old male patient presented to the emergency room because of difficulty getting words out with paresthesia on the right side and he is being admitted for TIA, hypertensive emergency and carotid artery stenosis. #1 TIA: CT scan brain showed no acute findings. CTA of the head and neck reviewed as above. Patient symptoms improved, currently has no symptoms. SOC teleneurology consulted and recommended no TPA at this time. Blood pressure elevated, other vital signs are stable. EKG reviewed, unremarkable. Troponin is negative. Patient had 2D echocardiogram on November, that revealed ejection fraction of 65%, RVSP of 33, other findings reviewed. Plan: Admit to PCU for observation, cardiac monitoring, NIH stroke scale, aspirin, Lipitor, lipid profile, MRI brain, bilateral carotid Doppler, gentle IV fluids for hydration, Tylenol as needed, Zofran as needed, PT OT evaluation and treatment. #2 hypertensive urgency: Initially, blood pressure was 217/96, patient received IV labetalol. Plan: Close monitoring, continue metoprolol, start IV Thorazine as needed, goal blood pressure is around 160/90. #3 carotid artery disease: CTA of the head and neck revealed extensive plaque formation with severe stenosis of the right carotid bulb, moderate plaque formation of the common carotid artery with 50 to 70% stenosis. Plan: Bilateral carotid Doppler, aspirin, statins. #4 CAD status post CABG: EKG reviewed, unremarkable, troponin is negative. Continue aspirin, statins and beta-blockers. #5 hyperlipidemia: Check lipid profile, continue statins. #6 COPD: Clinically stable, pulse ox is maintained on room air. Plan for albuterol as needed. #7 depression: Continue escitalopram. #8 DVT prophylaxis: Subcu Lovenox. This note was generated with [employer] dictation software. It may contain incorrect words, spelling, and punctuation that were not noted in checking the note before signing. OBSV E&M: 23456 Initial observation care L3
--- NOTE | 2020-02-26 19:53 | CDU_ITS ---
Reason For Study: TIA Rt. Velocities/BP Lt. Velocities/BP Prox CCA 69.5/ 12.1 cm/sec. Prox CCA 87.9/ 9.3 cm/sec. Mid CCA 74.7/ 12.1 cm/sec. Mid CCA 72.0/ 10.6 cm/sec. Dist CCA 115.1/ 13.4 cm/sec. Dist CCA 90.4/ 11.8 cm/sec. Bulb, 144.0/ 14.5 cm/s. Bulb,107.0/ 10.2 cm/s. Prox ICA 85.5/14.2 cm/sec. Prox ICA 66.8/ 10.2 cm/sec. Mid ICA 94.8/ 14.4 cm/sec. Mid ICA 92.4/ 19.4 cm/sec. Dist ICA 100.3/ 14.4 cm/sec. Dist ICA 75.6/ 16.7 cm/sec. Rt. ICA/CCA = 1.34. Lt. ICA/CCA = 1.05. Prox ECA 79.9/ 12.1 cm/sec. Prox ECA 85.1/ 4.7 cm/sec. Rt. Vert. 41.8/ 7.1 cm/sec. Lt. Vert. 72.0/ 14.2 cm/sec. Right Extracranial There is heterogeneous, irregular atherosclerotic plaque noted in the right common carotid artery. There is heterogeneous, irregular atherosclerotic plaque noted in the right internal carotid artery. There is heterogeneous, irregular atherosclerotic plaque noted in the right external carotid artery. Antegrade flow is noted in the right vertebral artery. There is heterogeneous, irregular atherosclerotic plaque noted in the right bulb. Left Extracranial There is heterogeneous, irregular atherosclerotic plaque noted in the left common carotid artery. There is heterogeneous, irregular atherosclerotic plaque noted in the left internal carotid artery. There is heterogeneous, irregular atherosclerotic plaque noted in the left external carotid artery. Antegrade flow is noted in the left vertebral artery. There is heterogeneous, irregular atherosclerotic plaque noted in the left bulb. Procedure Carotid Duplex 22457. This is a Carotid Duplex examination using B-mode, color flow and specral Doppler. Exam performed portable in patient room. Interpretation Summary Irregular calcific plague right carotid bulb and proximal internal carotid with <50% stenosis right internal carotid <50% stenosis right external carotid Irregular calcific plague proximal left internal carotid with <50% stenosis left internal carotid <50% stenosis left external carotid Patent, antegrade vertebrals bilaterally Ordering Physician: Kashif Kuhn Referring Physician: Carlitos King MD Performed By: Marie Guadarrama RVT and Student
[2020-02-26] MEDS: 0.9% Normal Saline 1,000 ML 75 ML IV (20:24)
[2020-02-26] MEDS: Acetaminophen 325 MG Tablet 650 MG PO (20:24)
[2020-02-26] MEDS: 0.9% Saline Lock 10 ML Syringe IV (20:26)
[2020-02-26] MEDS: hydrALAZINE 20 MG/ML Vial 10 MG IV (21:00)
[2020-02-26] MEDS: Atorvastatin Calcium 80 MG Tablet PO (21:00)
[2020-02-26] MEDS: tiZANidine HCl 2 MG Tablet 4 MG PO (21:00)
[2020-02-27] VITALS (16 sets, daily range): BP systolic 150–197; BP diastolic 59–93; PULSE 61–100; RESP 16–18; TEMP 36.4–36.8; O2SAT 94–97; BMI 29.8
[2020-02-27] MEDS: Lidocaine 5% Patch 1 PATCH TOPICAL (00:35)
[2020-02-27] MEDS: Acetaminophen 325 MG Tablet 650 MG PO ×2 (03:54→10:00)
[2020-02-27] MEDS: Aspirin 81 MG TAB.CHEW PO (07:22)
[2020-02-27 07:28] LABS: Cholesterol 134 mg/dL (200); High Density Lipoprotein 45 mg/dL; Triglycerides 196 mg/dL; Very Low Density Lipoprotein 39 mg/dL (5-40)
--- NOTE | 2020-02-27 08:00 | MRI_ITS ---
STUDY: MRI BRAIN WITHOUT CONTRAST REASON FOR EXAM: Male, 84 years old. slurred speech, aphasia, paresthesia right arm/leg TECHNIQUE: Standardized multiplanar fat and water weighted pulse sequences were obtained. COMPARISON: CT 02/26/2020 FINDINGS: There is moderate cerebral atrophy with widening of the extra-axial spaces and ventricular dilatation. There are multiple white matter hyperintensities, distributed throughout the deep white matter tracts of the cerebral hemispheres, consistent with moderate chronic white matter ischemic changes. There is no evidence for recent intracranial ischemia or other cause of cytotoxic edema on diffusion weighted imaging (DWI). Normal T2* images of the brain without demonstrated susceptibility artifact. There is no demonstrated hemosiderin stain. Normal bilateral basal ganglia. Normal thalami. There is no extra-axial fluid accumulation. Normal flow voids within the major intracranial circulation suggesting patency by spin echo criteria. Normal sella turcica, pituitary gland, infundibular stalk, optic chiasm and hypothalamus. Normal tectal plate and pineal gland. Normal midbrain, yamilet and medulla. Normal cerebellum. Normal basal cisterns. Normal bilateral temporal bones. Normal bilateral internal auditory canals. No demonstrated orbital abnormality, within the constraints of a routine brain study. Normal visualized paranasal sinuses. Normal calvarium and skull base. Normal visualized soft tissue structures. Normal visualized upper cervical spine. MRI/Brain without Contrast IMPRESSION: Involutional changes of the brain, as described above. No acute infarct. Electronically Signed: Jp Nuñez MD at 9:32 EDT Tel , Service support ,
[2020-02-27] MEDS: Escitalopram Oxalate 10 MG Tablet 5 MG PO (09:40)
[2020-02-27] MEDS: Metoprolol(XL)Succ 25 MG Tablet PO (09:41)
[2020-02-27] MEDS: Enoxaparin 40 MG/0.4 ML Syringe SC (09:41)
[2020-02-27] MEDS: hydrALAZINE 20 MG/ML Vial 10 MG IV ×2 (10:39→15:49)
[2020-02-27] MEDS: 0.9% Saline Lock 10 ML Syringe IV ×3 (10:39→16:58)
--- NOTE | 2020-02-27 11:27 | CASEMGMT ---
SW completed a PHQ 9 with patient as he may have had a TIA. He scored a 5 which indicates mild depression. When LUCILLE asked the question Thoughts that you would be better off , or of hurting yourself He said he has thought that if he did of natural causes he would be okay with this as he has lived a good life. He denies wanting to hurt himself as he would not want to put his beautiful through that. He denies feeling suicidal or homicidal. He just feels he has lived a good life and when his time comes it is what it is. He denied any need for counseling or talking with LUCILLE anymore. Therefore crisis was not consulted. Ro SALAZAR MSW
--- NOTE | 2020-02-27 15:11 | PCM.DC ---
- Discharge Diagnoses Current Active Problems: Current Active and Chronic Problems (Last Updated 02/26/20 @ 19:[address] Kashif Kuhn MD) Transient ischemic attack (Acute) COPD (chronic obstructive pulmonary disease) (Chronic) Atherosclerosis of [place] arteries of extremity with intermittent claudication (Chronic) CABG x4- MANZO to LAD, SVG to PDA, SVG to diagonal 1, SVG to post ventricular branch of the RCA 07/07/00 Aortocoronary bypass status (Chronic ~07/07/00) CABG x4- MANZO to LAD, SVG to PDA, SVG to diagonal 1, SVG to post ventricular branch of the RCA 07/07/00 Atherosclerotic heart disease of [place] coronary artery without angina pectoris (Chronic) Hyperlipidemia (Chronic) You will use the following diet at home:: Cardiac Your food should be the consistency of: Regular Your liquids should be the consistency of: Regular/Thin Discharge Activity: Return to Normal Activity Call your doctor if you observe: Fever of 101 or Higher, Shortness of breath, Dizziness, Fainting spells, Swelling in the ankles, Chest pain, Increased palpitations (irregular heartbeat) Allergies/Adverse Reactions: Allergies Penicillins Allergy (Verified 02/26/20 19:00) Hives Medications to take at Discharge Aspirin [Aspirin, Baby] 81 mg PO QHS 04/10/17 escitalopram oxalate 5 mg tablet 5 mg PO QDAY 10/11/17 lansoprazole 30 mg capsule,delayed release 30 mg PO DAILY PRN PRN cap 10/11/17 nitroglycerin 0.4 mg sublingual tablet 0.4 mg SUBLINGUAL Q5-15M PRN #25 tab 10/03/19 atorvastatin 40 mg tablet 40 mg PO QHS #90 tab 12/04/19 metoprolol succinate 25 mg tablet,extended release 24 hr 25 mg PO DAILY #90 tab 12/04/19 Tizanidine HCl [Zanaflex] 4 mg PO QHS 02/26/20 Lisinopril [Prinivil] 10 mg PO DAILY #90 tab 02/27/20 The following prescriptions were given: Lisinopril [Prinivil] 10 mg PO DAILY #90 tab Transmission Status: Pending to [facility] Primary Care Physician: Carlitos King MD [Primary Care Provider] - Please follow up with your Primary Care Physician in: 3-5 days Test Results: Test results from this visit will be discussed in further detail at your follow-up appointment, if applicable.
--- NOTE | 2020-02-27 15:47 | PCM.DC.SUM ---
Discharge Date and Diagnosis - Problem List Patient Problems: Active and Suspected Problems (Last Updated 02/26/20 @ 19:[address] Kashif Kuhn MD) Transient ischemic attack (Acute) Date of Admission: 02/26/20 Date of Discharge: 02/27/20 - Primary Discharge Diagnosis Acute Problems: Active Problems (Last Updated 02/26/20 @ 19:[address] Kashif Kuhn MD) Transient ischemic attack (Acute) - Secondary Discharge Diagnosis Chronic Problems: Chronic Problems (Last Updated 02/26/20 @ 19:[address] Kashif Kuhn MD) COPD (chronic obstructive pulmonary disease) (Chronic) Atherosclerosis of [place] arteries of extremity with intermittent claudication (Chronic) CABG x4- MANZO to LAD, SVG to PDA, SVG to diagonal 1, SVG to post ventricular branch of the RCA 07/07/00 RBBB (Chronic) Aortocoronary bypass status (Chronic ~07/07/00) CABG x4- MANZO to LAD, SVG to PDA, SVG to diagonal 1, SVG to post ventricular branch of the RCA 07/07/00 Carotid bruit (Chronic) Atherosclerotic heart disease of [place] coronary artery without angina pectoris (Chronic) Hyperlipidemia (Chronic) Hospital Course and Treatment Imaging Results: Clinical Impression(s) from Imaging Studies Brain CT 02/26/20 17:42 IMPRESSION: No acute intracranial abnormality. Chronic ischemic and atrophic changes. N.B. : The above information has been verbally conveyed by Vasu Sierra to Carlitos Angulo on 02/26/2020 18:02:00 (ET). Electronically Signed: Vasu Sierra, at 18:03 EDT Tel , Service support , ADDENDUM: 02/26/20 1810 IMPRESSION: No acute intracranial abnormality. Chronic ischemic and atrophic changes. N.B. : The above information has been verbally conveyed by Vasu Sierra to Carlitos Angulo on 02/26/2020 18:02:00 (ET). Electronically Signed: Vasu Sierra, at 18:03 EDT Tel , Service support , Head/Neck CTA 02/26/20 17:42 IMPRESSION: 1. There is no demonstrated aneurysm of the [place] or hemodynamically significant stenosis of the major intracranial arteries.. 2. There is extensive atherosclerotic plaque formation with severe narrowing of the right carotid bulb with a hemodynamically significant stenosis. 3. There is moderate atherosclerotic plaque formation of the common carotid artery, with a 50-70% focal stenosis. There is moderate atherosclerotic plaque formation with moderate narrowing of the carotid bulb. N.B. : The above information has been verbally conveyed by Colton Velázquez MD to Carlitos Nicole DO, MD, on 02/26/2020 18:21:53 (ET). Electronically Signed: Colton Velázquez MD at 18:23 EDT , Service support , ADDENDUM: 02/26/20 1830 IMPRESSION: 1. There is no demonstrated aneurysm of the [place] or hemodynamically significant stenosis of the major intracranial arteries.. 2. There is extensive atherosclerotic plaque formation with severe narrowing of the right carotid bulb with a hemodynamically significant stenosis. 3. There is moderate atherosclerotic plaque formation of the common carotid artery, with a 50-70% focal stenosis. There is moderate atherosclerotic plaque formation with moderate narrowing of the carotid bulb. N.B. : The above information has been verbally conveyed by Colton Velázquez MD to Carlitos Nicole DO, MD, on 02/26/2020 18:21:53 (ET). Electronically Signed: Colton Velázquez MD at 18:23 EDT , Service support , Chest X-Ray 02/26/20 18:35 IMPRESSION: 1. Reidentification of mild to moderate chronic interstitial fibrosis and scarring of the left lower lobe. No new infiltrate or opacity is seen in either lung. Electronically Signed: Colton Velázquez MD at 19:25 EDT , Service support , Brain MRI 02/27/20 08:00 IMPRESSION: Involutional changes of the brain, as described above. No acute infarct. Electronically Signed: Jp Nuñez MD at 9:32 EDT Tel , Service support , Consults: Neurology Operations: None Procedures: None Summary of Care Provided: Per HPI: The patient is a 84 year old M with past medical history as mentioned above presented to the emergency room because of difficulty speaking and paresthesia. Patient was kind of poor informant and he gave me a different story that he gave to the emergency room physician. According to the patient, at around 2 PM, he noticed that he is not thinking right, having difficulty getting the words out and started having numbness and tingling on both hands. He informed the ER physician that he had numbness and tingling on the right arm and leg. To me, he denied focal weakness of upper or lower extremities. He complained of headache which started around the same time, no associated symptoms. Currently, he thinks that his speech is back to normal. He had a history of CAD status post CABG and he has been stable on aspirin, statins and beta-blockers. He had a history of COPD, never been on oxygen but has been on albuterol inhaler as needed at home. He had a history of hyperlipidemia and he has been on statins. In the emergency department, initial blood pressure was elevated, other vital signs were stable. Routine blood work was unremarkable. CT scan brain showed no acute infarct or hemorrhage. EKG revealed normal sinus rhythm with RBBB which is chronic, no acute changes. Troponin was negative. Chest x-ray showed no acute findings, probable left lower lobe atelectasis. CTA of the head and neck revealed significant extensive plaque formation with severe narrowing of the right carotid bulb with hemodynamically significant stenosis, moderate plaque formation of the common carotid artery with 50 to 70% stenosis. [facility] teleneurology consulted and recommended that patient is not a candidate for TPA as his symptoms resolved. Patient is being admitted for TIA, carotid artery stenosis and hypertensive urgency. Hospital Course: 1. TIA/hypertensive [id number] male with a history of coronary artery disease as well as carotid disease presents to the hospital with slurred speech and numbness on his right side. He states that he is much better now he had an MRI which was unremarkable. CTA of the head and neck showed a 50 to 70% stenosis in the common carotid artery on the left. He states symptoms have resolved and his blood pressure which was initially well over 200 is now in the 160s 170s. It appears that as an outpatient he does see cardiology for his coronary artery disease but is only on metoprolol. We will add him on lisinopril. He will need to follow-up with his PCP in 3 to 5 days to evaluate his kidney function since he is being started on lisinopril. He is already on aspirin since MRI was negative I did not add Plavix. He was also okay with physical therapy to be able to go home today. I discussed with him that I would prefer if he stayed an extra day just to make sure that the blood pressure medication did not cause any significant lightheadedness or dizziness and to continue to monitor him from blood pressure standpoint however he is requesting to go home. I discussed with him the plan for discharge and he expressed understanding of the risk and benefits of going home. I did asked that if he does get lightheaded or dizzy to stop his blood pressure medication and return to the hospital or call his doctor. 2. CAD status post CABG, hypertension, hyperlipidemia, depression are all chronic medical conditions which complicate his care. His home medications were continued where appropriate Patient Problems: Active and Suspected Problems (Last Updated 02/26/20 @ 19:[address] Kashif Kuhn MD) Transient ischemic attack (Acute) - Physical Exam Vitals/I&O's: Vital Signs Temp Pulse Resp BP Pulse Ox 97.8 F 88 16 173/86 H 97 02/27/20 12:40 02/27/20 12:40 02/27/20 12:40 02/27/20 12:40 02/27/20 12:40 Oxygen Delivery Method Room Air Weight: 220 lb Body Mass Index (BMI) 29.8 Finger Stick Blood Glucose 137 Intake and Output for Last 24 Hours 02/25/20 02/26/20 02/27/20 23:59 23:59 23:59 Intake Total 468.75 / 468.75 432.5 / 432.5 Balance 468.75 / 468.75 432.5 / 432.5 General: Alert, Oriented x3, Cooperative, No apparent distress HEENT: Atraumatic, PERRLA, EOMI, Normocephalic Oral: Moist Mucosa Neck: Supple, No JVD Lungs: Clear to auscultation, Normal air movement, No rhonchi, No wheeze, No rales Cardiovascular: Regular rate, Regular Rhythm, Normal S1, Normal S2, No murmurs Abdomen: Soft, Non Tender, Non-Distended, No Hepato-splenomegaly Extremities: No edema, Capillary Refill Less than 3 Seconds Skin: No rashes, No breakdown Neurological: Neuro grossly intact, Sensory exam intact to light touch and pain Psych/Mental Status: Normal Affect, Appropriate Laboratory Results 02/26/20 17:42: WBC 8.6, RBC 4.78, Hgb 15.2, Hct 44.8, MCV 93.7, MCH 31.8, MCHC 33.9, RDW Std Deviation 46.5 H, RDW Coeff of Josh 13.7, Plt Count 245, MPV 9.1, Immature Gran % (Auto) 0.300, Neut % (Auto) 62.9, Lymph % (Auto) 23.7, [place] % (Auto) 11.3 H, Eos % (Auto) 1.3, Baso % (Auto) 0.5, Absolute Neuts (auto) 5.4, Absolute Lymphs (auto) 2.04, Nucleated RBC % 0 02/26/20 17:42: PT 12.5, INR 1.0, APTT 31.6 02/26/20 17:42: Sodium 137, Potassium 4.3, Chloride 104, Carbon Dioxide 33.0 H, Anion Gap 0 L, BUN 17, Creatinine 1.23, Estim Creat Clear Calc 50.82, Est GFR (MDRD) Af Amer 72, Est GFR (MDRD) Non-Af 60, BUN/Creatinine Ratio 13.8, Glucose 104, Calcium 9.5, Troponin I < 0.015 02/27/20 06:24: Triglycerides 196, Cholesterol 134, LDL Cholesterol 50, VLDL Cholesterol 39, HDL Cholesterol 45 Current Medications Acetaminophen (Acetaminophen 325 Mg Tablet) 650 mg PO Q6H PRN PRN PRN Reason: Pain Score 1-10/Temp > 100.7 F Last Admin: 02/27/20 10:00 Dose: 650 mg Documented by: Albuterol Sulfate (Albuterol 2.5 Mg/3 Ml Vial.Neb.) 2.5 mg INHALATION Q4H PRN PRN PRN Reason: Shortness of breath, wheezing Aspirin (Aspirin 81 Mg Tab.Chew) 81 mg PO DAILY@0800 [facility] Last Admin: 02/27/20 07:22 Dose: 81 mg Documented by: Atorvastatin Calcium (Atorvastatin Calcium 80 Mg Tablet) 80 mg PO QHS [facility] Last Admin: 02/26/20 21:00 Dose: 80 mg Documented by: Enoxaparin Sodium (Enoxaparin 40 Mg/0.4 Ml Syringe) 40 mg SC DAILY [facility] Last Admin: 02/27/20 09:41 Dose: 40 mg Documented by: Escitalopram Oxalate (Escitalopram Oxalate 10 Mg Tablet) 5 mg PO DAILY [facility] Last Admin: 02/27/20 09:40 Dose: 5 mg Documented by: Hydralazine HCl (Hydralazine 20 Mg/Ml Vial) 10 mg IV Q4H PRN PRN PRN Reason: for SBP>160 Last Admin: 02/27/20 10:39 Dose: 10 mg Documented by: Sodium Chloride () 250 mls @ 15 mls/hr IV .[id number] PRN PRN Reason: Saline Flush Sodium Chloride () 250 mls @ 15 mls/hr IV .[id number] PRN PRN Reason: Additional IVPB Infusion Ibuprofen (Ibuprofen 400 Mg Tablet) 400 mg PO Q6H PRN PRN PRN Reason: Pain 1-10 or Fever Lidocaine (Lidocaine 5% Patch) 1 patch TOPICAL DAILY [facility]; Protocol Last Admin: 02/27/20 09:40 Dose: Not Given Documented by: Metoprolol Succinate (Metoprolol(Xl)Succ 25 Mg Tablet) 25 mg PO DAILY [facility] Last Admin: 02/27/20 09:41 Dose: 25 mg Documented by: Ondansetron HCl (Ondansetron 4 Mg/2 Ml Vial) 4 mg IV Q8H PRN PRN PRN Reason: NAUSEA/VOMITING Senna/Docusate Sodium (Senna/Docusate Sodium 1 Tablet) 2 tablet PO BID PRN PRN PRN Reason: Constipation Sodium Chloride (0.9% Saline Lock 10 Ml Syringe) 10 - 40 ml IV UD PRN PRN Reason: SALINE FLUSH Last Admin: 02/27/20 10:39 Dose: 10 ml Documented by: Tizanidine HCl (Tizanidine Hcl 2 Mg Tablet) 4 mg PO QHS [facility] Last Admin: 02/26/20 21:00 Dose: 4 mg Documented by: Zolpidem Tartrate (Zolpidem Tartrate 5 Mg Tablet) 5 mg PO QHS PRN PRN PRN Reason: INSOMNIA Discharge Activity: Return to Normal Activity Call your doctor if you observe: Fever of 101 or Higher, Shortness of breath, Dizziness, Fainting spells, Swelling in the ankles, Chest pain, Increased palpitations (irregular heartbeat) Home Medications: Medications to take at Discharge Aspirin [Aspirin, Baby] 81 mg PO QHS 04/10/17 escitalopram oxalate 5 mg tablet 5 mg PO QDAY 10/11/17 lansoprazole 30 mg capsule,delayed release 30 mg PO DAILY PRN PRN cap 10/11/17 nitroglycerin 0.4 mg sublingual tablet 0.4 mg SUBLINGUAL Q5-15M PRN #25 tab 10/03/19 atorvastatin 40 mg tablet 40 mg PO QHS #90 tab 12/04/19 metoprolol succinate 25 mg tablet,extended release 24 hr 25 mg PO DAILY #90 tab 12/04/19 Tizanidine HCl [Zanaflex] 4 mg PO QHS 02/26/20 Lisinopril [Prinivil] 10 mg PO DAILY #90 tab 02/27/20 Following Prescriptions Were Given to Patient: Lisinopril [Prinivil] 10 mg PO DAILY #90 tab Transmission Status: Received by [facility] Primary Care Physician: Carlitos King MD [Primary Care Provider] - Please follow up with your Primary Care Physician in: 3-5 days Disposition: Home Minutes spent on discharge:: 35 Patient Condition:: Stable Medical Necessity - Tobacco Use Smoking Status: Former smoker Tobacco Use: Cigarettes Meaningful Use Info Meaningful Use Diagnoses (Choose all that apply): None applicable OBSV E&M: 78662 Observation care discharge
[2020-02-27] MEDS: Ibuprofen 400 MG Tablet PO (15:48)
[2020-02-27] MEDS: Ondansetron 4 MG/2 ML Vial IV (16:58)
[2020-02-27] MEDS: Lisinopril 10 MG Tablet PO (19:07)
[2020-02-28 09:06] LABS: Bedside Glucose 137 mg/dL (70-110)
== END 2020-02-27 19:12 | disposition home health service (06) ==
LOC: ED 18:55 → PCU 19:18
PROVIDERS: Admitting Provider Hospitalist; Emergency Provider Emergency Medicine; PCP Family Medicine; Referring Provider Hospitalist; Visit Provider Family Medicine
DX: G45.9 Transient cerebral ischemic attack, unspecified (principal); R47.01 Aphasia; R20.2 Paresthesia of skin; R53.1 Weakness; I25.10 Atherosclerotic heart disease of native coronary artery without angina pectoris; J44.9 Chronic obstructive pulmonary disease, unspecified; F32.9 Major depressive disorder, single episode, unspecified; E78.5 Hyperlipidemia, unspecified; I70.219 Atherosclerosis of native arteries of extremities with intermittent claudication, unspecified extremity; Z87.891 Personal history of nicotine dependence; Z79.899 Other long term (current) drug therapy; Z79.82 Long term (current) use of aspirin; Z95.1 Presence of aortocoronary bypass graft; I16.0 Hypertensive urgency; R47.81 Slurred speech
CPT/HCPCS: 70450; 70496; 70498; 70551; 71045; 80048; 80061; 82962; 84484; 85025; 85610; 85730; 92610; 93005; 93880; 94762; 96361; 96372; 96374; 96375; 96376; 97162; 97166; 99218; 99251; 99285; J7030; Q9967; A4216; G0378; G0463; J2405

== ENCOUNTER 2020-02-28 10:17 | Emergency (ER) | payer MEDICARE, SELFPAY ==
[2020-02-27 13:37] VITALS: BMI 29.8
[2020-02-28] VITALS (11 sets, daily range): BP systolic 141–168; BP diastolic 71–83; PULSE 75–91; RESP 15–20; TEMP 36.4; O2SAT 96–97; BMI 30.1
--- NOTE | 2020-02-28 10:20 | CT_ITS ---
STUDY: CT BRAIN WITHOUT CONTRAST REASON FOR EXAM: Male, 84 years old. Expressive aphasia. RADIATION DOSAGE (If Supplied By Facility): CTDIvol = ( 44.99 ) mGy, DLP = ( 846.73 ) mGycm TECHNIQUE: Transaxial CT imaging of the brain was performed without administration of intravenous contrast material. Individualized dose optimization techniques were used for this CT. COMPARISON: Comparison is made with prior examination in 02/26/2020. FINDINGS: Normal soft tissue structures. Normal calvarium. There is moderate cerebral atrophy with widening of the extra-axial spaces and ventricular dilatation. There are areas of decreased attenuation within the white matter tracts of the supratentorial brain, consistent with microvascular disease changes. Normal basal ganglia and thalami. Normal brainstem. Normal cerebellum. There is no intracranial hemorrhage. There are no findings of an acute ischemic infarction. Atherosclerotic calcification of the cavernous portions of the internal carotid arteries bilaterally. Normal visualized paranasal sinuses. CT/Brain/Head without Contrast IMPRESSION: Chronic involutional changes of the brain. N.B. : The above information has been verbally conveyed by Jeronimo Zelaya to Toy Crandall on 02/28/2020 10:36:11 (ET). Electronically Signed: Jeronimo Zelaya, at 10:37 EDT , Service support ,
--- NOTE | 2020-02-28 10:20 | EKG12_ITS ---
Test Reason : Blood Pressure : / mmHG Vent. Rate : 079 BPM Atrial Rate : 079 BPM P-R Int : 160 ms QRS Dur : 148 ms QT Int : 398 ms P-R-T Axes : 068 015 041 degrees QTc Int : 456 ms Normal sinus rhythm Right bundle branch block Abnormal ECG Confirmed by YRIS MACHUCA, KEV ([id number]), medical transcription editor CHIP CAMACHO ([id number]) on 03/03/2020 11:12:06 AM Referred By: GABRIELLA Confirmed By:KEV ARNDT MD
--- NOTE | 2020-02-28 10:21 | CT_ITS ---
STUDY: CTA HEAD AND NECK WITH CONTRAST REASON FOR EXAM: Male, 84 years old. EXPRESSIVE APHASIA RADIATION DOSAGE (If Supplied By Facility): CTDIvol = ( 21.81 ) mGy, DLP = ( 683.69 ) mGycm TECHNIQUE: CT angiography was performed with a multi-detector CT scanner. Data acquisition was obtained from the skull base through the vertex following intravenous administration of IV 75mL [id number]-[id number]. MIP images were reconstructed from the axial data set. Post-processing of the angiographic images was performed, with multiplanar reformation and 3D reconstruction. Individualized dose optimization techniques were used for this CT. COMPARISON: Comparison is made with prior examination dated 02/26/2020. FINDINGS: Normal bilateral petrous carotid arteries. There is calcified plaque formation of the right cavernous carotid artery, without a cross-sectional luminal stenosis. There is calcified plaque formation of the left cavernous carotid artery, without a cross-sectional luminal stenosis. Normal right A1 segments of the anterior cerebral artery. Normal left A1 segments of the anterior cerebral artery. Normal intact anterior communicating artery (ACOM). Normal bilateral A2 segments of the anterior cerebral arteries. Normal right M1 and M2 segments of the middle cerebral arteries, with a normal M1 bifurcation. Normal left M1 and M2 segments of the middle cerebral arteries, with a normal M1 bifurcation. Normal right posterior communicating artery (PCOM). Normal left posterior communicating artery (PCOM). Normal bilateral vertebral arteries. Normal basilar artery with a normal basilar bifurcation. The visualized bilateral superior cerebellar (SCA) arteries are normal. Normal bilateral P1, P2 and visualized P3 segments of the posterior cerebral arteries. There is no demonstrated aneurysm of the [place]. Stable cerebral atrophy. AORTIC ARCH: There is atherosclerotic calcific plaque formation of the aortic arch and great vessels arising from the aortic arch, without a hemodynamically significant stenosis. There is a normal origin of the brachiocephalic, left common carotid, and left subclavian arteries. Prior CABG. RIGHT CAROTID ARTERIES: Normal right common carotid artery (CCA). Normal right common carotid bulb. There is extensive atherosclerotic plaque formation of the origin of the right internal carotid artery with an estimated stenosis of greater than 70%. Normal visualized cervical portion of the right internal carotid artery. Normal origin of the right external carotid artery (ECA). LEFT CAROTID ARTERIES: Normal left common carotid artery (CCA). Normal left common carotid bulb. There is moderate atherosclerotic plaque formation of the origin of the left internal carotid artery with an estimated stenosis of 50-69% stenosis. Normal visualized cervical portion of the left internal carotid artery. Normal origin of the left external carotid artery (ECA). VERTEBRAL ARTERIES: Normal bilateral vertebral arteries. CT/CTA Head AND Neck W/ Contrast IMPRESSION: Atherosclerotic plaque formation at the right carotid bifurcation causing greater than 70% luminal stenosis. Atherosclerotic plaque calcification at the origin of the left internal carotid artery causing between 50 and 69% stenosis. Electronically Signed: Jeronimo Zelaya, at 10:51 EDT , Service support ,
--- NOTE | 2020-02-28 10:24 | NURSING ---
[id number] STROKE ALERT CALLED
--- NOTE | 2020-02-28 10:36 | CM.ED ---
Social Work Responding to stroke alert. Patient spouse. Lea present. Support provided. Lea denies any current needs. Jessie Dodd MSW, MARTIN-S
--- NOTE | 2020-02-28 10:45 | ED.VIS.GEN ---
History of Present Illness Informant: Patient Narrative: 84-year-old male with past medical history of HLD, CAD, CABG, COPD presents with complaints of speech difficulty. provides history. On 02/26/2020 he had slurred speech and was admitted to the hospital and diagnosed with TIA. He was discharged on lisinopril. He went home last night and was feeling back to normal and went to bed. This morning he awoke around 4 AM and vomited once, but otherwise seemed normal. He ate breakfast and was conversing with the in a normal fashion. Around 9 AM he again started to have slurred speech and difficulty getting his words out. No focal motor or sensory changes. No vision changes. He takes aspirin 81 mg daily, no blood thinners. <Melani Nowak - Last Filed: 02/28/20 11:43> <Toy Crandall - Last Filed: 02/28/20 12:01> Chief Complaint: Neuro S/Sx Past Medical History Past Medical History: - - HTM, TIA Surgical History: coronary bypass surgery - x 4., - - ORIF right femur fracture using long intramedullary raulito. Smoking Status: Former smoker - Family History Paternal Family History: Family History (Last Reviewed 02/26/20 @ 19:[address] Kashif Kuhn MD) Father Myocardial infarction, Onset Age: 68 Brother CAD (coronary artery disease) Myocardial infarction Hx of CABG Brother CHF (congestive heart failure) Family History: Reports: - Maternal Family History: Family History (Last Reviewed 02/26/20 @ 19:[address] Kashif Kuhn MD) Father Myocardial infarction, Onset Age: 68 Brother CAD (coronary artery disease) Myocardial infarction Hx of CABG Brother CHF (congestive heart failure) Family History: Reports: No pertinent history <Melani Nowak - Last Filed: 02/28/20 11:43> - Family History Paternal Family History: Family History (Last Reviewed 02/26/20 @ 19:[address] Kashif Kuhn MD) Father Myocardial infarction, Onset Age: 68 Brother CAD (coronary artery disease) Myocardial infarction Hx of CABG Brother CHF (congestive heart failure) Maternal Family History: Family History (Last Reviewed 02/26/20 @ 19:[address] Kashif Kuhn MD) Father Myocardial infarction, Onset Age: 68 Brother CAD (coronary artery disease) Myocardial infarction Hx of CABG Brother CHF (congestive heart failure) <Toy Crandall - Last Filed: 02/28/20 12:01> - Allergies and Home Meds Allergies/Adverse Reactions: Allergies Penicillins Allergy (Verified 02/26/20 19:00) Hives Primary Care Physician: Carlitos King MD [Primary Care Provider] - Review of Systems General: Denies: Chills, Fever, Sweats Eyes: Denies: Visual changes - bilaterally, Diplopia ENT: Denies: Rhinorrhea, Sore throat Cardiovascular: Denies: Chest pain, Palpitations Respiratory: Denies: Dyspnea, Cough, Dyspnea on exertion Gastrointestinal: Denies: Abdominal pain, Nausea, Vomiting, Diarrhea, Melena, Hematochezia Genitourinary: Denies: Dysuria, Hematuria, Frequency Musculoskeletal: Denies: Back pain, Extremity Pain Skin: Denies: Rash, Wounds Neurological: Denies: Headache, Weakness, Numbness <Melani Nowak - Last Filed: 02/28/20 11:43> Physical Exam Vital Signs/Narrative: Vital Signs Temp Pulse Resp BP Pulse Ox 02/28/20 10:38 96 02/28/20 10:32 75 16 146/76 H 97 02/28/20 10:20 97.6 F L 75 16 146/76 H 97 General: Well nourished, Well developed, No Acute Distress, - - expressive aphasia Head: Normocephalic, Atraumatic Eyes: Perrl, EOMI ENT: Moist mucous membranes, No rhinorrhea Neck: Supple, Nontender Cardiovascular: Regular rate, Regular rhythm, No murmurs Respiratory: No distress, CTA bilaterally, Chest nontender Abdomen: Soft, Nontender, Nondistended, Normal bowel sounds Back: Nontender, Normal Inspection Extremities: Nontender, No edema Skin: Normal color, No rash Neurological: Alert, Oriented x3, Cranial nerves II-XII grossly intact, Normal Strength, Normal Sensation. Negative for: Left side facial droop, Right side facial droop Psychological: Normal affect, Normal Mood <Melani Nowak - Last Filed: 02/28/20 11:43> Vital Signs/Narrative: Vital Signs Temp Pulse Resp BP Pulse Ox 02/28/20 11:32 88 17 152/75 H 97 02/28/20 11:22 81 20 H 152/75 H 97 02/28/20 10:51 78 18 150/71 H 97 02/28/20 10:38 96 02/28/20 10:32 75 16 146/76 H 97 02/28/20 10:20 97.6 F L 75 16 146/76 H 97 <Toy Crandall - Last Filed: 02/28/20 12:01> Diagnostic/Tx/Re-eval Clinical Impression(s) from Imaging Studies Brain CT 02/28/20 10:20 IMPRESSION: Chronic involutional changes of the brain. N.B. : The above information has been verbally conveyed by Jeronimo Zelaya to Toy Crandall on 02/28/2020 10:36:11 (ET). Electronically Signed: Jeronimo Zelaya, at 10:37 EDT , Service support , ADDENDUM: 02/28/20 1044 IMPRESSION: Chronic involutional changes of the brain. N.B. : The above information has been verbally conveyed by Jeronimo Zelaya to Toy Crandall on 02/28/2020 10:36:11 (ET). Electronically Signed: Jeronimo Zelaya, at 10:37 EDT , Service support , Head/Neck CTA 02/28/20 10:21 IMPRESSION: Atherosclerotic plaque formation at the right carotid bifurcation causing greater than 70% luminal stenosis. Atherosclerotic plaque calcification at the origin of the left internal carotid artery causing between 50 and 69% stenosis. Electronically Signed: Jeronimo Zelaya, at 10:51 EDT , Service support , Laboratory Data 02/28/20 02/28/20 02/28/20 10:35 10:35 10:35 WBC 12.2 H RBC 4.44 L Hgb 14.1 Hct 41.8 MCV 94.1 H MCH 31.8 MCHC 33.7 RDW Std Deviation 47.6 H RDW Coeff of Josh 14.0 Plt Count 244 MPV 9.1 Immature Gran % (Auto) 0.200 Neut % (Auto) 83.8 H Lymph % (Auto) 6.4 L Forest % (Auto) 9.4 Eos % (Auto) 0.0 Baso % (Auto) 0.2 Absolute Neuts (auto) 10.2 H Absolute Lymphs (auto) 0.78 L Nucleated RBC % 0 PT 13.6 INR 1.1 APTT 31.6 Sodium 135 L Potassium 4.6 Chloride 100 Carbon Dioxide 29.0 Anion Gap 6 BUN 16 Creatinine 1.45 H Estim Creat Clear Calc 43.11 Est GFR (MDRD) Af Amer 60 Est GFR (MDRD) Non-Af 50 L BUN/Creatinine Ratio 11.0 Glucose 114 H Calcium 9.2 Troponin I 0.162 H - Medical Decision Making Patient with a recent TIA presents with a new episode of expressive aphasia. He appears well nontoxic. Vital signs within normal limits. He still has expressive aphasia with NIH of 1. Otherwise normal medical exam. Labs show leukocytosis of 12 and mild increase in creatinine at 1.45. Troponin is 0.162. EKG is normal sinus rhythm with known right bundle branch block. No acute ischemia. Is having no chest pain and I do not think this is acute ACS but rather secondary to a CVA. CT shows no acute process. CTA done 2 days ago shows severe narrowing of the right carotid with hemodynamically significant stenosis, and 50 to 70% stenosis of the common carotid artery. On-call neurology recommended against TPA. He passed a swallow evaluation and was given Plavix 300 mg. Patient will be transferred to [facility] to be evaluated by neurology and vascular services. He was agreeable and transferred in stable condition. - Critical Care Time Critical care time (excluding procedures): 30-74 minutes, Discussing w/Patient &/or Family/Chief Drafter, Discussing w/Consultants, Arranging Admission or Transfer, Performing Direct Patient Care at Bedside - CC: 33 minutes <Melani Nowak - Last Filed: 02/28/20 11:43> - Medical Decision Making History physical was performed. Patient NIH is 1. Spoke with the neurologist at [facility]. Spoke with the web development consultant at [facility] and awaiting call from the carina mendez physician at [facility]. Patient has a clinically significant carotid stenosis that is in all likelihood causing his recurrent expressive aphasia. The consult requested loading with Plavix. Patient did pass dysphagia screen. He was loaded with Plavix. Patient be transferred to [facility] neuro ICU. <Toy Crandall - Last Filed: 02/28/20 12:01> ED Disposition <Melani Nowak - Last Filed: 02/28/20 11:43> <Toy Crandall - Last Filed: 02/28/20 12:01> - Plan for ED Patient: Disposition: [facility] - Main Diagnosis: CVA (cerebral vascular accident), Expressive aphasia Referrals: Carlitos King MD [Primary Care Provider] -
[2020-02-28 10:56] LABS: Absolute Lymphocyte Count 0.78 X10^3/uL (0.83-4.51); Absolute Neutrophil Count 10.2 X10^3/uL (2.0-7.7); Basophil# 0.02 X10^3/uL; Basophil% 0.2 % (0-1); Hematocrit 41.8 % (40-54); Hemoglobin 14.1 g/dL (13.0-16.5); Lymphocyte # 0.78 X10^3/ul (4.0); Lymphocyte % 6.4 % (19-41); Mean Corp Hgb Conc 33.7 g/dL (32-36); Mean Corpuscular Hgb 31.8 pg (27.0-32.0); Mean Corpuscular Volume 94.1 fL (80-94); Mean Platelet Vol. 9.1 fl (6.2-12.0); Monocyte# 1.14 X10^3/uL; Monocyte% 9.4 % (0-10); NRBC Flagged by Analyzer 0 % (0-5); Neutrophil % 83.8 % (47-70); Platelet Count 244 K/mm3 (150-450); RBC Distribution Width SD 47.6 fl (35.1-43.9); Red Blood Count 4.44 M/mm3 (4.6-6.2); White Blood Count 12.2 K/mm3 (4.4-11.0)
[2020-02-28 11:03] LABS: Anion Gap 6 (5-15); BUN 16 mg/dL (7-18); Calcium,Total 9.2 mg/dL (8.5-10.1); Chloride 100 mmol/L (98-107); Creatinine, Serum 1.45 mg/dL (0.70-1.30); EST Glomerular Filtration Rate 50 mL/min (>60); Est Glom Filt Rate - Afr Amer 60 mL/min (>60); Estimated Creatinine Clearance 43.11 ml/min; Glucose 114 mg/dL (74-106); Potassium 4.6 mmol/L (3.5-5.1); Sodium Level 135 mmol/L (136-145)
[2020-02-28 11:05] LABS: International Normalized Ratio 1.1; Prothrombin Time (Protime)PT. 13.6 SECONDS (11.7-14.9)
[2020-02-28 11:06] LABS: Partial Thromboplast Time 31.6 Seconds (24.1-36.2)
--- NOTE | 2020-02-28 11:10 | NURSING ---
CALLED [facility] TALKING TO DR QUIROZ
--- NOTE | 2020-02-28 11:35 | CM.ED ---
Social Work This social staff worker followed up with patient and patient spouse. Patient to be transferred to [facility]. This social staff worker inquiring as to how patient and patient spouse are doing. Patient reports to be frustrated with the transfer but to be understanding and to know the reason for the transfer. Patient reports to be agreeable to transfer. Patient and patient spouse appear to be coping appropriately. Patient laughing and joking. Patient spouse pleasant and thanking staff. This social staff worker able to provide patient spouse with current visitation policy at [facility]. No further needs identified. Jessie Dodd MSW, [facility]
[2020-02-28] MEDS: Clopidogrel Bisulfate 300 MG Tablet PO (11:39)
[2020-02-28] MEDS: Acetaminophen 325 MG Tablet 650 MG PO (13:45)
== END 2020-02-28 14:39 | disposition short-term general hospital (02) ==
PROVIDERS: Emergency Medicine; Emergency Provider Physician Assistant; PCP Family Medicine
DX: I63.9 Cerebral infarction, unspecified (principal); R47.01 Aphasia; I25.10 Atherosclerotic heart disease of native coronary artery without angina pectoris; E78.5 Hyperlipidemia, unspecified; Z79.82 Long term (current) use of aspirin; Z86.73 Personal history of transient ischemic attack (TIA), and cerebral infarction without residual deficits; Z95.1 Presence of aortocoronary bypass graft; Z87.891 Personal history of nicotine dependence
CPT/HCPCS: 70450; 70496; 70498; 80048; 84484; 85025; 85610; 85730; 93005; 99285; Q9967; A4216

== ENCOUNTER 2020-03-18 14:49 | Inpatient (IN) | payer MEDICARE, SELFPAY ==
[2020-02-28 10:39] VITALS: BMI 30.1
[2020-03-18] VITALS (7 sets, daily range): BP systolic 140–210; BP diastolic 75–103; PULSE 74–111; RESP 18–26; TEMP 37–37.9; O2SAT 93–98; BMI 29.3; BMI 28.5
--- NOTE | 2020-03-18 15:21 | ED.VIS.GEN ---
History of Present Illness Chief Complaint: Nausea/Vomiting/Diarrhea Informant: Patient Narrative: Patient is an 84-year-old male who presents to the emergency department for multiple complaints. He states that he has been having nausea/vomiting and diarrhea for the past 1 to 2 weeks. He did get a coronavirus test yesterday but did not get the results back. He has had a sore throat as well as headache. He has been feeling short of breath. He has developed a cough that is been nonproductive. No known sick contacts. No known coronavirus exposures. States he has been feeling very weak. He ended up falling when trying to get out of bed this morning. Denies hitting his head or losing consciousness. No injury from the fall. Denies being on any anticoagulation medications. He denies any chest pain or palpitations. Patient was hospitalized just prior to his symptoms starting at [place] for suspected carotid stenosis but did not undergo any procedures. Past Medical History - Allergies and Home Meds Allergies/Adverse Reactions: Allergies Penicillins Allergy (Verified 03/18/20 14:54) [facility] Primary Care Physician: Carlitos King MD [Primary Care Provider] - Prior records reviewed: Yes Past Medical History: - - CAD Surgical History: coronary bypass surgery - x 4., - - ORIF right femur fracture using long intramedullary raulito. Smoking Status: Former smoker - Family History Paternal Family History: Family History (Last Reviewed 02/26/20 @ 19:[address] Kashif Kuhn MD) Father Myocardial infarction, Onset Age: 68 Brother CAD (coronary artery disease) Myocardial infarction Hx of CABG Brother CHF (congestive heart failure) Family History: Reports: - Maternal Family History: Family History (Last Reviewed 02/26/20 @ 19:[address] Kashif Kuhn MD) Father Myocardial infarction, Onset Age: 68 Brother CAD (coronary artery disease) Myocardial infarction Hx of CABG Brother CHF (congestive heart failure) Family History: Reports: No pertinent history Review of Systems General: Reports: Chills, Fever, Malaise. Denies: Sweats Eyes: Denies: Visual changes - bilaterally, Diplopia ENT: Reports: Sore throat. Denies: Rhinorrhea Cardiovascular: Denies: Chest pain, Palpitations Respiratory: Reports: Dyspnea, Cough. Denies: Sputum Gastrointestinal: Reports: Nausea, Vomiting, Diarrhea. Denies: Abdominal pain, Melena, Hematochezia Genitourinary: Denies: Dysuria, Hematuria, Frequency Musculoskeletal: Denies: Back pain, Extremity Pain Skin: Denies: Rash, Wounds Neurological: Reports: Headache. Denies: Weakness, Numbness Physical Exam Vital Signs/Narrative: Vital Signs Temp Pulse Resp BP Pulse Ox 03/18/20 14:59 96 03/18/20 14:54 100.3 F H 111 H 25 H 210/103 H 93 Inital Vital Signs reviewed: Yes General: Well nourished, Well developed, No Acute Distress Head: Normocephalic, Atraumatic Eyes: Perrl, EOMI ENT: Moist mucous membranes, No rhinorrhea Neck: Supple, Nontender Cardiovascular: Regular rhythm, No murmurs, Tachycardia Respiratory: No distress, CTA bilaterally, Chest nontender Abdomen: Soft, Nontender, Nondistended, Normal bowel sounds Back: Nontender, Normal Inspection Extremities: Nontender, No edema Skin: Normal color, No rash Neurological: Alert, Normal Strength, Normal Sensation Psychological: Normal affect, Normal Mood Diagnostic/Tx/Re-eval Chest X-Ray - ED: - - X-ray shows the development of a consolidation of the right lower lobe. There are some chronic changes of the left lower lobe. Otherwise normal cardiac silhouette. Agree with radiologist. - Medical Decision Making Patient presents to the emergency department for multiple complaints. Concern for coronavirus infection. He is borderline febrile. We will give a dose of Tylenol as he is not taking this in many hours. He is tachycardic. No hypotension. Will check basic lab work, repeat coronavirus swab to obtain quicker, chest x-ray and blood cultures. Patient was tachycardic, febrile and tachypneic upon arrival. He started on supplemental oxygen due to mild hypoxemia. X-ray shows the development of a consolidation in the right lower lobe. I do have significant concern for coronavirus and this test is currently pending. His white count is within normal limits but he has low lymphocytes. We will hold off on giving the 30 cc per kg bolus as his lactic acid is within normal limits. Antibiotics also being held until coronavirus comes back. Patient's coronavirus test did come back positive. On room air he satting around 88%. He is requiring supplemental oxygen. Will bring into the hospital for further evaluation and management. Will defer treatments to hospitalist. Patient made aware of findings. He understands and is agreeable this plan. His heart rate, temperature did come down with 1 L of IV fluids and Tylenol. ED Disposition - Plan for ED Patient: Disposition: Acute Care Hospital [facility] Diagnosis: Pneumonia due to COVID-19 virus, Hypoxia, Vomiting, Diarrhea Referrals: Carlitos King MD [Primary Care Provider] -
[2020-03-18] MEDS: Acetaminophen 325 MG Tablet 650 MG PO (15:28)
[2020-03-18 15:32] LABS: Bacteria 0 SEEN /hpf (None Seen); Mucous, Urine 0 SEEN /hpf (<or=2+); Squamous Epithelial Cells - UA 0 SEEN /hpf (0-5)
--- NOTE | 2020-03-18 15:35 | RAD_ITS ---
STUDY: X-RAY CHEST REASON FOR EXAM: Male, 84 years old. N/V/D X 1 WEEK. COVID TESTED YESTERDAY, WAITING ON RESULT. C/O SCRATCHY THROAT, GANN. SOB BUT PT STATES HE IS ALWAYS SOB, HAS COPD TECHNIQUE: Single AP portable view of the chest. COMPARISON: February 26, 2020 FINDINGS: Interval appearance of mild consolidation of the right lower lobe. Chronic left lower lobe fibrotic appearing consolidation with a small pleural effusion unchanged from the prior study. The remaining lung chatman are clear. Sternal cerclage wires and vascular clips are present from a prior sternotomy and coronary artery bypass graft procedure (CABG). Normal heart size. Normal visualized thoracic spine. Normal visualized ribs, clavicles, and shoulders. There is no demonstrated abnormality of the visualized soft tissue structures of the upper abdomen. RAD/Chest 1 View (Portable) IMPRESSION: 1. Interval appearance of mild pneumonic consolidation of the right lower lobe. 2. Chronic left lower lobe fibrotic appearing consolidation with a small pleural effusion unchanged from the prior study. The remaining lung chatman are clear. Electronically Signed: Colton Velázquez MD at 16:52 EST , Service support ,
[2020-03-18 15:39] LABS: Absolute Lymphocyte Count 0.41 X10^3/uL (0.83-4.51); Absolute Neutrophil Count 7.4 X10^3/uL (2.0-7.7); Basophil# 0.02 X10^3/uL; Basophil% 0.2 % (0-1); Eosinophil# 0.01 X10^3/uL; Eosinophils% 0.1 % (0-5); Hematocrit 40.8 % (40-54); Hemoglobin 14.1 g/dL (13.0-16.5); Lymphocyte # 0.41 X10^3/ul (4.0); Lymphocyte % 4.6 % (19-41); Mean Corp Hgb Conc 34.6 g/dL (32-36); Mean Corpuscular Volume 92.7 fL (80-94); Mean Platelet Vol. 9.1 fl (6.2-12.0); Monocyte# 0.96 X10^3/uL; Monocyte% 10.9 % (0-10); NRBC Flagged by Analyzer 0 % (0-5); Neutrophil # 7.37 X10^3/uL (2.7-7.7); Neutrophil % 83.6 % (47-70); POSITIVE DIFFERENTIAL YES; Platelet Count 197 K/mm3 (150-450); RBC Distribution Width CV 13.9 % (11.6-14.6); RBC Distribution Width SD 47.4 fl (35.1-43.9); White Blood Count 8.8 K/mm3 (4.4-11.0)
[2020-03-18 15:48] LABS: Differential Indicated SCAN CRITERIA MET
[2020-03-18 16:00] LABS: ALB/GLOB Ratio 0.8 RATIO (0.9-2.4); AST(SGOT) 27 U/L (15-37); Alanine Aminotransfer ALT/SGPT 25 U/L (16-61); Albumin, Serum 3.2 g/dL (3.2-5.0); Alkaline Phosphatase 90 U/L (45-117); Anion Gap 4 (5-15); BUN 21 mg/dL (7-18); BUN/Creat Ratio 18.3 RATIO (10-20); Calcium,Total 9.2 mg/dL (8.5-10.1); Chloride 102 mmol/L (98-107); Creatinine, Serum 1.15 mg/dL (0.70-1.30); EST Glomerular Filtration Rate 65 mL/min (>60); Est Glom Filt Rate - Afr Amer 78 mL/min (>60); Estimated Creatinine Clearance 54.36 ml/min; Glucose 132 mg/dL (74-106); Potassium 4.4 mmol/L (3.5-5.1); Protein, Total 7.2 g/dL (6.4-8.2); Sodium Level 132 mmol/L (136-145)
[2020-03-18 16:01] LABS: Color, Urine Yellow (Yellow); Glucose, Dipstick Normal (Normal); Ketone-Dipstick 5 mg/dl (Negative); Leukocyte Esterase-Dipstick 25 /ul (Negative); Nitrite-Dipstick Negative (Negative); Occult Blood-Urine 25 /ul (Negative); Protein-Dipstick 30 mg/dl (Negative); Urine Bilirubin Dipstick Negative (Negative); Urine Clarity Clear (Clear); Urine Urobilinogen Normal (Normal)
[2020-03-18 16:10] LABS: Lactic Acid 1.7 mmol/L (0.4-1.9)
[2020-03-18 16:12] LABS: Red Blood Cells-Urine 0-5 SEEN /hpf (0-5); White Blood Cells 0-5 SEEN /hpf (0-5)
[2020-03-18 17:10] LABS: Probe Check PASS; Specimen Processing Control PASS
--- NOTE | 2020-03-18 17:26 | HP.PCM_ITS ---
History of Present Illness Date of Admission: 03/18/20 Chief Complaint: shortness of breath, nausea, vomiting, diarrhea The patient is a 84 year old M with a PMH as outlined who was admitted via the ED with a complaint of nausea, vomiting and diarrhea for 1-2 weeks. He said symptoms were persistent, and he also had some mild sore throat and headache. Cough was nonproductive. He had had no known coronavirus exposures. He did say he had been feeling very weak. He ended up falling also getting out of bed on the day of admission though he denied hitting his head or passing out. Of note, patient was recently admitted at [facility] for suspected carotid stenosis but states that no procedures were done. In the ED, vitals showed temperature of 99.5 Fahrenheit with blood pressure of 150/75, pulse rate of 74 and respiratory of 25. He was saturating at 97% on 2 L of oxygen. Chemistry showed sodium of 132 and creatinine of 1.15 with potassium of 4.4. Lactic acid was 1.7. CBC showed hemoglobin of 14.1 and WBC of 8.8 with platelets of 197. Chest x-ray showed interval appearance of mild pneumonic consolidation of the right lower lobe with chronic left lower lobe fibrotic appearing consolidation with a small pleural effusion unchanged from the previous study with remaining lung chatman being clear. He has been admitted to be managed for acute hypoxic respiratory sufficiency due to COVID-19 pneumonia. [] Past Medical History Past Medical History (Chronic Problems): Chronic Problems (Last Updated 03/13/20 @ 08:18 by Sis Patel) Left carotid artery stenosis (Chronic) COPD (chronic obstructive pulmonary disease) (Chronic) Atherosclerosis 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 (Chronic) CABG x4- MANZO to LAD, SVG to PDA, SVG to diagonal 1, SVG to post ventricular branch of the RCA 07/07/00 RBBB (Chronic) Aortocoronary bypass status (Chronic ~07/07/00) CABG x4- MANZO to LAD, SVG to PDA, SVG to diagonal 1, SVG to post ventricular branch of the RCA 07/07/00 Carotid bruit (Chronic) Atherosclerotic heart disease of [place] coronary artery without angina pectoris (Chronic) Hyperlipidemia (Chronic) Medical History: Medical History (Last Updated 03/13/20 @ 08:18 by Sis Patel) Left carotid artery stenosis (Chronic) I65.22 COPD (chronic obstructive pulmonary disease) (Chronic) J44.9 Atherosclerosis 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 (Chronic) I70.219 CABG x4- MANZO to LAD, SVG to PDA, SVG to diagonal 1, SVG to post ventricular branch of the RCA 07/07/00 RBBB (Chronic) I45.10 Carotid bruit (Chronic) R09.89 Atherosclerotic heart disease of [place] coronary artery without angina pectoris (Chronic) I25.10 Hyperlipidemia (Chronic) E78.5 Depression F32.9 GERD (gastroesophageal reflux disease) K21.9 Right femoral fracture S72.91XA Fall (Inactive) W19.XXXA Hip fracture (Inactive) S72.009A Insomnia (Inactive) G47.00 Allergies Penicillins Allergy (Verified 03/18/20 14:54) Hives Home Medications: Ambulatory Orders Medication Instructions Recorded Aspirin [Aspirin, Baby] 81 mg PO QHS 04/10/17 escitalopram oxalate 5 mg tablet 5 mg PO DAILY 10/11/17 lansoprazole 30 mg capsule,delayed 30 mg PO DAILY PRN PRN cap 10/11/17 release nitroglycerin 0.4 mg sublingual 0.4 mg SUBLINGUAL Q5-15M PRN #25 10/03/19 tablet tab atorvastatin 40 mg tablet 40 mg PO QHS #90 tab 12/04/19 metoprolol succinate 25 mg 25 mg PO DAILY #90 tab 12/04/19 tablet,extended release 24 hr Docusate Sodium [Colace] 100 mg PO BID 03/18/20 Lisinopril [Prinivil] 10 mg PO DAILY 03/18/20 Surgical History: Surgical History (Last Reviewed 02/26/20 @ 19:[address] Kashif Kuhn MD) Aortocoronary bypass status (Chronic) Onset Date: ~07/07/00 Z95.1 CABG x4- MANZO to LAD, SVG to PDA, SVG to diagonal 1, SVG to post ventricular branch of the RCA 07/07/00 Hx of appendectomy Z90.49 Surgical History: coronary bypass surgery - x 4., - - ORIF right femur fracture using long intramedullary raulito. Psychiatric History: Depression Lives: With Family Smoking Status: Former smoker Alcohol: None Drugs: None - *Family History Paternal Family History: Family History (Last Reviewed 02/26/20 @ 19:[address] Kashif Kuhn MD) Father Myocardial infarction, Onset Age: 68 Brother CAD (coronary artery disease) Myocardial infarction Hx of CABG Brother CHF (congestive heart failure) History Items: - Maternal Family History: Family History (Last Reviewed 02/26/20 @ 19:[address] Kashif Kuhn MD) Father Myocardial infarction, Onset Age: 68 Brother CAD (coronary artery disease) Myocardial infarction Hx of CABG Brother CHF (congestive heart failure) History Items: No pertinent history Review of Systems Constitutional: Reports: Malaise, Weakness, Fatigue. Denies: Anorexia, Chills, Fever, Weight Change Eyes: Denies: Blurred vision HEENT: Denies: Head Aches, Sinus Congestion, Sinus Drainage Cardiovascular: Denies: Chest Pain, Palpitations Respiratory: Reports: Shortness of Breath. Denies: Cough, Shortness of breath at rest, Shortness of breath upon exertion, Sputum production Gastrointestinal: Reports: Diarrhea, Nausea, Vomiting. Denies: Abdominal Pain, Dyspepsia, Hematemesis, Melena Genitourinary: Denies: Dysuria Musculoskeletal: Denies: Joint Pain, Joint Tenderness Skin: Denies: Rash, Wounds Neurological: Denies: Numbness, Tingling, Focal weakness Psychiatric: Denies: Anxiety, Depression, Homicidal Ideations, Suicidal Ideations Hematologic/ Lymphatic: Denies: Easy Bruising, Easy Bleeding VTE Information - Inpt Only VTE Present on Admission: No VTE Pharm Prophylaxis ordered?: Yes Patient Problems: Active and Suspected Problems (Last Updated 03/13/20 @ 08:18 by Sis Patel) Pneumonia due to COVID-19 virus (Acute) Hypoxia (Acute) Vomiting (Acute) Diarrhea (Acute) - Physical Exam Vitals/I&O's: Vital Signs Temp Pulse Resp BP Pulse Ox 100.1 F H 90 26 H 161/83 H 97 03/18/20 16:22 03/18/20 16:22 03/18/20 16:22 03/18/20 16:22 03/18/20 16:22 Oxygen Flow Rate (L/min) 2 Oxygen Delivery Method Nasal Cannula Weight: 216 lb 4.375 oz Body Mass Index (BMI) 29.3 Finger Stick Blood Glucose 146 Intake and Output for Last 24 Hours 03/16/20 03/17/20 03/18/20 23:59 23:59 23:59 Intake Total 500 / 500 Balance 500 / 500 General: Alert, Oriented x3, Cooperative, No apparent distress HEENT: Atraumatic, PERRLA, EOMI, Normocephalic Oral: Dry Mucosa Neck: Supple, No JVD, Negative Carotid Bruits Lungs: Clear to auscultation, Normal air movement, Tachypneic, - - on 2L of oxygen Cardiovascular: Regular rate, Regular Rhythm, Normal S1, Normal S2, No murmurs Abdomen: Bowel Sounds Present, Soft, Non Tender, Non-Distended, No Hepato- splenomegaly Extremities: No clubbing, No cyanosis, No edema, Capillary Refill Less than 3 Seconds Skin: No rashes, No breakdown Musculoskeletal: No Tenderness to Palpation of Joints or Extremities Lymphatic: No Cervical, Supraclavicular, or Inguinal Adenopathy Neurological: Cranial nerves II-XII grossly intact, Neuro grossly intact, Motor Exam 5/5 strength throughout Psych/Mental Status: Normal Affect, Appropriate, Alert and oriented to time, place, person, mood and affect Laboratory Results 03/18/20 15:10: Urine Color Yellow, Urine Clarity Clear, Urine pH 5.0, Ur Specific [place] 1.020, Urine Protein 30 H, Urine Glucose (UA) Normal, Urine Ketones 5 H, Urine Occult Blood 25 H, Urine Nitrite Negative, Urine Bilirubin Negative, Urine Urobilinogen Normal, Ur Leukocyte Esterase 25 H, Urine RBC 0-5 SEEN, Urine WBC 0-5 SEEN, Ur Squamous Epith Cells 0 SEEN, Urine Bacteria 0 SEEN, Urine Mucus 0 SEEN 03/18/20 15:18: COVID-19 (ELVIRA) Positive 03/18/20 15:20: WBC 8.8, RBC 4.40 L, Hgb 14.1, Hct 40.8, MCV 92.7, MCH 32.0, MCHC 34.6, RDW Std Deviation 47.4 H, RDW Coeff of Josh 13.9, Plt Count 197, MPV 9.1, Immature Gran % (Auto) 0.600, Neut % (Auto) 83.6 H, Lymph % (Auto) 4.6 L, [place] % (Auto) 10.9 H, Eos % (Auto) 0.1, Baso % (Auto) 0.2, Absolute Neuts (auto) 7.4, Absolute Lymphs (auto) 0.41 L, Nucleated RBC % 0, Differential Comment C OMMENT 03/18/20 15:20: Sodium 132 L, Potassium 4.4, Chloride 102, Carbon Dioxide 26.0, Anion Gap 4 L, BUN 21 H, Creatinine 1.15, Estim Creat Clear Calc 54.36, Est GFR (MDRD) Af Amer 78, Est GFR (MDRD) Non-Af 65, BUN/Creatinine Ratio 18.3, Glucose 132 H, Calcium 9.2, Total Bilirubin 0.90, AST 27, ALT 25, Alkaline Phosphatase 90, Total Protein 7.2, Albumin 3.2, Globulin 4.0, Albumin/Globulin Ratio 0.8 L 03/18/20 15:20: Lactic Acid 1.7 Diagnostic Data Chest X-Ray 03/18/20 15:35 IMPRESSION: 1. Interval appearance of mild pneumonic consolidation of the right lower lobe. 2. Chronic left lower lobe fibrotic appearing consolidation with a small pleural effusion unchanged from the prior study. The remaining lung chatman are clear. Electronically Signed: Colton Velázquez MD at 16:52 EST , Service support , Assessment/Plan All Active Problems (Last Updated 03/13/20 @ 08:18 by Sis Patel) Pneumonia due to COVID-19 virus (Acute) Hypoxia (Acute) Vomiting (Acute) Diarrhea (Acute) Transient ischemic attack (Acute) 84 y/o admitted with a complaint of nausea, vomiting and diarrhea as well as shortness of breath # Acute hypoxic respiratory insufficiency due to COVID 19 pneumonia * patient on 2l of oxygen. * admit to COVID floor * titrate oxygen to maintain sats.90% * IV decadrone 6mg daily * consult ID * breathing treatment with bronchodilators * # COVID 19 infection * as above * check urine for strep and Legionella. check D dimer; if elevated, do CTA of the chest * ID consulted * # Hypertension * on lisinopril and metoprolol * #Hyperlipidemia * on atorvastatin * DVT prophylaxis; lovenox Code status: full code * Patient counseled extensively about different types of CODE STATUS including full code, DNR CCA and DNR CCA. Patient elects to be full code. * Total [id number] time 17 minutes. Inpatient E&M: 83300 Init Hosp L3 Procedures: 37819 Advncd Care Plan 30 Min
[2020-03-18] MEDS: 0.9% Normal Saline 1,000 ML 150 ML IV (20:01)
[2020-03-18] MEDS: 0.9% Saline Lock 10 ML Syringe IV (20:02)
[2020-03-18] MEDS: Atorvastatin Calcium 40 MG Tablet PO (20:02)
[2020-03-18] MEDS: Enoxaparin 30 MG/0.3 ML Syringe SC (20:02)
[2020-03-18] MEDS: Aspirin 81 MG TAB.CHEW PO (20:02)
[2020-03-18] MEDS: Docusate Sodium 100 MG Capsule PO (20:03)
[2020-03-18 21:20] LABS: International Normalized Ratio 1.1; Prothrombin Time (Protime)PT. 13.4 SECONDS (11.7-14.9)
[2020-03-18 21:21] LABS: Fibrinogen 672 mg/dl (203-444)
[2020-03-18 21:27] LABS: LDH 213 U/L (87-241)
[2020-03-18 21:29] LABS: BNP,B-Type NATRIURETIC PEPTIDE 126.6 pg/mL (0-100); D-Dimer Quantitative (DVT/PE) 0.97 FEU/ug/m (0.27-0.49)
[2020-03-18 21:37] LABS: Procalcitonin 0.14 ng/mL (0.00-0.09)
[2020-03-19] VITALS (11 sets, daily range): BP systolic 139–165; BP diastolic 68–86; PULSE 69–98; RESP 18; TEMP 35.4–38.2; O2SAT 92–99
[2020-03-19] MEDS: Acetaminophen 325 MG Tablet 650 MG PO ×3 (02:50→23:39)
[2020-03-19] MEDS: oxyCODONE 5 MG Tablet PO (02:50)
--- NOTE | 2020-03-19 07:42 | PN_ITS ---
Patient Problems: Active and Suspected Problems (Last Updated 03/13/20 @ 08:18 by Sis Patel) Pneumonia due to COVID-19 virus (Acute) Hypoxia (Acute) Vomiting (Acute) Diarrhea (Acute) Reason for Visit: Acute COVID-19 pneumonia Subjective: Patient is an 84-year-old gentleman who presented to the emergency department with progressive shortness of breath with associated nausea vomiting and diarrhea his assessment was consistent with acute COVID-19 admitted to monitored bed for further management Objective: GENERAL: cooperative HEENT: Atraumatic; EYES; Anicteric, Normal Conjunctiva NECK; supple, normal thyroid, RESPIRATORY: Diminished to auscultation CARDIOVASCULAR: Regular S1 S2, GI: soft, normoactive bowel sounds, : No Renal angle tenderness; EXTREMITIES: No edema, no clubbing, MUSCULOSKELETAL: no muscle waisting NEURO: Awake; no lateralizing signs. SKIN: No Rash PSYCH; Flat affect Vitals/I&O's: Vital Signs Temp Pulse Resp BP Pulse Ox 98.8 F 97 18 158/68 H 94 03/19/20 02:47 03/19/20 02:47 03/19/20 02:47 03/19/20 02:47 03/19/20 02:47 Oxygen Flow Rate (L/min) 2 Oxygen Delivery Method Nasal Cannula Weight: 95.254 kg Body Mass Index (BMI) 28.5 Finger Stick Blood Glucose 146 Intake and Output for Last 24 Hours 03/17/20 03/18/20 03/19/20 23:59 23:59 23:59 Intake Total 500 / 500 1000 / 1000 Output Total 450 / 450 Balance 500 / 300 550 / 550 Microbiology Past 72 Hours 03/18/20 15:10 Urine, Clean Catch Legionella Antigen - Final 03/18/20 15:10 Urine, Clean Catch Streptococcus pneumoniae Antigen (M - Final Laboratory Results 03/18/20 15:10: Urine Color Yellow, Urine Clarity Clear, Urine pH 5.0, Ur Specific [place] 1.020, Urine Protein 30 H, Urine Glucose (UA) Normal, Urine Ketones 5 H, Urine Occult Blood 25 H, Urine Nitrite Negative, Urine Bilirubin Negative, Urine Urobilinogen Normal, Ur Leukocyte Esterase 25 H, Urine RBC 0-5 SEEN, Urine WBC 0-5 SEEN, Ur Squamous Epith Cells 0 SEEN, Urine Bacteria 0 SEEN, Urine Mucus 0 SEEN 03/18/20 15:18: COVID-19 (ELVIRA) Positive 03/18/20 15:20: WBC 8.8, RBC 4.40 L, Hgb 14.1, Hct 40.8, MCV 92.7, MCH 32.0, MCHC 34.6, RDW Std Deviation 47.4 H, RDW Coeff of Josh 13.9, Plt Count 197, MPV 9.1, Immature Gran % (Auto) 0.600, Neut % (Auto) 83.6 H, Lymph % (Auto) 4.6 L, [place] % (Auto) 10.9 H, Eos % (Auto) 0.1, Baso % (Auto) 0.2, Absolute Neuts (auto) 7.4, Absolute Lymphs (auto) 0.41 L, Nucleated RBC % 0, Differential Comment COMMENT 03/18/20 15:20: Sodium 132 L, Potassium 4.4, Chloride 102, Carbon Dioxide 26.0, Anion Gap 4 L, BUN 21 H, Creatinine 1.15, Estim Creat Clear Calc 54.36, Est GFR (MDRD) Af Amer 78, Est GFR (MDRD) Non-Af 65, BUN/Creatinine Ratio 18.3, Glucose 132 H, Calcium 9.2, Total Bilirubin 0.90, AST 27, ALT 25, Alkaline Phosphatase 90, Total Protein 7.2, Albumin 3.2, Globulin 4.0, Albumin/Globulin Ratio 0.8 L 03/18/20 15:20: Lactic Acid 1.7 03/18/20 20:40: PT 13.4, INR 1.1, Fibrinogen 672 H, D-Dimer Quant (PE/DVT) 0.97 H* 03/18/20 20:40: B-Natriuretic Peptide 126.6 H 03/18/20 20:40: Lactate Dehydrogenase 213 03/18/20 20:40: Procalcitonin 0.14 H Current Medications Acetaminophen (Acetaminophen 325 Mg Tablet) 650 mg PO Q4H PRN PRN PRN Reason: Pain Score 1-10/Temp > 100.7 F Last Admin: 03/19/20 02:50 Dose: 650 mg Documented by: Al Hydroxide/Mg Hydroxide (Mag Hydrox/Al Hydrox/Simeth 30 Ml Udc) 30 ml PO Q6H PRN PRN PRN Reason: Gastric Burning Aspirin (Aspirin 81 Mg Tab.Chew) 81 mg PO QHS BRITTNEY Last Admin: 03/18/20 20:02 Dose: 81 mg Documented by: Atorvastatin Calcium (Atorvastatin Calcium 40 Mg Tablet) 40 mg PO QHS [facility] Last Admin: 03/18/20 20:02 Dose: 40 mg Documented by: Dexamethasone Sodium Phosphate (Dexamethasone 10 Mg/Ml Vial) 6 mg IV DAILY [facility] Docusate Sodium (Docusate Sodium 100 Mg Capsule) 100 mg PO BID PRN PRN PRN Reason: Constipation Enoxaparin Sodium (Enoxaparin 30 Mg/0.3 Ml Syringe) 30 mg SC BID [facility] Last Admin: 03/18/20 20:02 Dose: 30 mg Documented by: Escitalopram Oxalate (Escitalopram Oxalate 10 Mg Tablet) 5 mg PO DAILY [facility] Lisinopril (Lisinopril 10 Mg Tablet) 10 mg PO DAILY [facility] Metoprolol Succinate (Metoprolol(Xl)Succ 25 Mg Tablet) 25 mg PO DAILY [facility] Morphine Sulfate (Morphine 2 Mg/Ml Syringe) 2 - 4 mg IV Q3H PRN PRN PRN Reason: Pain Score 6-10 Morphine Sulfate (Morphine 2 Mg/Ml Syringe) 1 - 2 mg IV Q4H PRN PRN PRN Reason: Pain Score 4-5 Nitroglycerin (Nitroglycerin (Inpatient Use) 0.4 Mg Tab.Subl) 0.4 mg SUBLINGUAL Q5M PRN PRN Reason: CARDIAC/CHEST PAIN Ondansetron HCl (Ondansetron 4 Mg/2 Ml Vial) 4 mg IV Q8H PRN PRN PRN Reason: NAUSEA/VOMITING Oxycodone HCl (Oxycodone 5 Mg Tablet) 5 mg PO Q4H PRN PRN PRN Reason: Pain Score 4-5 Last Admin: 03/19/20 02:50 Dose: 5 mg Documented by: Pantoprazole Sodium (Pantoprazole Sodium 40 Mg Tablet) 40 mg PO DAILY PRN PRN PRN Reason: acid reflux Prochlorperazine Edisylate (Prochlorperazine 10 Mg/2 Ml Vial) 10 mg IV Q6H PRN PRN PRN Reason: Nausea/Vomiting Sodium Chloride (0.9% Saline Lock 10 Ml Syringe) 10 - 40 ml IV UD PRN PRN Reason: SALINE FLUSH Last Admin: 03/18/20 20:02 Dose: 10 ml Documented by: Medical Necessity - Tobacco Use Smoking Status: Former smoker Assessment/Plan All Active Problems (Last Updated 03/13/20 @ 08:18 by Sis Patel) Pneumonia due to COVID-19 virus (Acute) Hypoxia (Acute) Vomiting (Acute) Diarrhea (Acute) Transient ischemic attack (Acute) Patient is an 84-year-old gentleman who presented to the emergency department with progressive shortness of breath with associated nausea vomiting and diarrhea his assessment was consistent with acute COVID-19 admitted to monitored bed for further management 1. Acute hypoxic respiratory insufficiency secondary to COVID-19 pneumonia ?Admitted to monitored bed placed on supplemental oxygen titrated to keep saturation greater than 90. Patient was started on Decadron and consultation placed to both ID and pulmonary medicine 2. Acute viral gastroenteritis ?Secondary to COVID-19 3. Hypertension - Blood pressure controlled, home medications continued with dose adjustment as needed 4. Dyslipidemia -Patient is on statin therapy, continued at home dose 5. COPD ?Aerosol treatments as needed 6. GERD ?On PPI 7. DVT prophylaxis ?Enoxaparin Inpatient E&M: 22502 [facility] Hosp L3
[2020-03-19 08:00] LABS: Absolute Lymphocyte Count 0.84 X10^3/uL (0.83-4.51); Absolute Neutrophil Count 4.6 X10^3/uL (2.0-7.7); Basophil# 0.03 X10^3/uL; Basophil% 0.5 % (0-1); Hematocrit 37.1 % (40-54); Hemoglobin 12.5 g/dL (13.0-16.5); Lymphocyte # 0.84 X10^3/ul (4.0); Lymphocyte % 12.8 % (19-41); Mean Corp Hgb Conc 33.7 g/dL (32-36); Mean Corpuscular Hgb 32.1 pg (27.0-32.0); Mean Corpuscular Volume 95.1 fL (80-94); Mean Platelet Vol. 9.2 fl (6.2-12.0); Monocyte# 1.05 X10^3/uL; NRBC Flagged by Analyzer 0 % (0-5); Neutrophil # 4.62 X10^3/uL (2.7-7.7); Neutrophil % 70.4 % (47-70); Platelet Count 173 K/mm3 (150-450); RBC Distribution Width CV 14.3 % (11.6-14.6); RBC Distribution Width SD 50.4 fl (35.1-43.9); White Blood Count 6.6 K/mm3 (4.4-11.0)
[2020-03-19 08:46] LABS: ALB/GLOB Ratio 0.9 RATIO (0.9-2.4); AST(SGOT) 20 U/L (15-37); Alanine Aminotransfer ALT/SGPT 21 U/L (16-61); Albumin, Serum 2.7 g/dL (3.2-5.0); Alkaline Phosphatase 76 U/L (45-117); Anion Gap 4 (5-15); BUN 17 mg/dL (7-18); Calcium,Total 8.6 mg/dL (8.5-10.1); Chloride 103 mmol/L (98-107); Creatinine, Serum 0.95 mg/dL (0.70-1.30); EST Glomerular Filtration Rate 81 mL/min (>60); Est Glom Filt Rate - Afr Amer 98 mL/min (>60); Globulin 3.1 g/dL (2.2-4.2); Glucose 103 mg/dL (74-106); Potassium 4.6 mmol/L (3.5-5.1); Protein, Total 5.8 g/dL (6.4-8.2); Sodium Level 135 mmol/L (136-145)
[2020-03-19] MEDS: Lisinopril 10 MG Tablet PO (09:53)
[2020-03-19] MEDS: Escitalopram Oxalate 10 MG Tablet 5 MG PO (09:53)
[2020-03-19] MEDS: Enoxaparin 30 MG/0.3 ML Syringe SC ×2 (09:54→21:33)
[2020-03-19] MEDS: Metoprolol(XL)Succ 25 MG Tablet PO (09:54)
--- NOTE | 2020-03-19 10:45 | CASEMGMT ---
JESSENIA MORALES assessment: Phone interview with patient for initial transition planning/care coordination assessment as pt is COVID positive at this time. RN ANDREW introduced self and role at [facility], pt voices understanding and consents to assessment at this time. Pt is A/Ox4 at this time and answers all questions appropriately at this time. Pt states has no symptoms at this time and they have family to provide resources/supplies. Pt is currently on 2liters nc at this time and speaks in full sentences with no SOB at this time. Care providers, pharmacy, and demographics verified at this time. Presentation: N/V/D x1 week-pt states has COVID test yesterday and awaiting results. Pt c/o SOB but states also has COPD Admitting dx: COVID infection PCP: Fernando Specialists: francheska Troy Preferred Pharmacy: [facility] Insurance: [facility] Prescription Benefit: AeR Living Will/HPOA: Pt states has LW/HPOA and is aware that they are on file at [facility] at this time. Pt states his , Lea Hutson, is HPOA. LNOK: Lae Hutson, /HPOA: Citnhya Owens, [id number] Living Arrangements: Pt states lives with in 1 story home and states no concerns at home at this time. Pt states is independent with ADL's. Transportation: Pt states drives self and states no transportation concerns at this time. DME/HHC: Pt states has the following DME: cane, walker, grab bars, and shower chair. Pt states no need for any further DME at this time. Pt states he would like to discuss DME company with , if needed at discharge. Pt states no hx of SNF but has had HHC in the past. Pt states no concerns with going home at time of discharge. Pt is retired. Pt states does not smoke cigarettes or drink ETOH. Pt states no further concerns/needs at this time. CM to follow for home oxygen qualification, PT/OT evals, and any further discharge planning/needs. Advised pt to ask for CM if any further questions/concerns/needs arise, voices understanding. Pt Goal: Home Plan: Home, pending home oxygen testing, PT/OT evals. [place] JESSENIA MORALES
[2020-03-19] MEDS: 0.9% Saline Lock 10 ML Syringe IV ×2 (11:01→21:33)
[2020-03-19] MEDS: dexAMETHasone 4 MG Tablet 6 MG PO (11:01)
--- NOTE | 2020-03-19 11:48 | CASEMGMT ---
HCPOA and Living will printed from pt formerly [facility] and placed on chart. HCPIVAN designates Lea Hutson, . COLLINS Medrano
--- NOTE | 2020-03-19 13:06 | CON.PCM_ITS ---
Problem List (1) Pneumonia due to COVID-19 virus Status: Acute Reason for Consult: covid Consulted by: Dr. Reese History of Present Illness: The patient is a 84 year old M reports not feeling well for past month. Was admitted to [place] with what sounds like carotid stenosis, he says he was not diagnosed with covid at that time. Now came to [facility] 03/18 with about one week or more of nausea, cough, dyspnea, fever, change in taste/smell and loss of appetite. Came to ED, no fever, admitted on 2L. Full ROS performed and neg except as noted above. - Medical History Past Medical History (Chronic Problems): Chronic Problems (Last Updated 03/13/20 @ 08:18 by Sis Patel) Left carotid artery stenosis (Chronic) COPD (chronic obstructive pulmonary disease) (Chronic) Atherosclerosis of [place] arteries of extremity with intermittent claudication (Chronic) CABG x4- MANZO to LAD, SVG to PDA, SVG to diagonal 1, SVG to post ventricular branch of the RCA 07/07/00 RBBB (Chronic) Aortocoronary bypass status (Chronic ~07/07/00) CABG x4- MANZO to LAD, SVG to PDA, SVG to diagonal 1, SVG to post ventricular branch of the RCA 07/07/00 Carotid bruit (Chronic) Atherosclerotic heart disease of [place] coronary artery without angina pectoris (Chronic) Hyperlipidemia (Chronic) Allergies/Adverse Reactions: Allergies Penicillins Allergy (Verified 03/18/20 14:54) Hives Home Medications: Ambulatory Orders Medication Instructions Recorded Aspirin [Aspirin, Baby] 81 mg PO QHS 04/10/17 escitalopram oxalate 5 mg tablet 5 mg PO DAILY 10/11/17 lansoprazole 30 mg capsule,delayed 30 mg PO DAILY PRN PRN cap 10/11/17 release nitroglycerin 0.4 mg sublingual 0.4 mg SUBLINGUAL Q5-15M PRN #25 10/03/19 tablet tab atorvastatin 40 mg tablet 40 mg PO QHS #90 tab 12/04/19 metoprolol succinate 25 mg 25 mg PO DAILY #90 tab 12/04/19 tablet,extended release 24 hr Docusate Sodium [Colace] 100 mg PO BID 03/18/20 Lisinopril [Prinivil] 10 mg PO DAILY 03/18/20 - Social History SMOKING STATUS:: Former smoker Vital Signs Temp Pulse Resp BP Pulse Ox 98.3 F 97 18 139/71 H 92 03/19/20 09:59 03/19/20 10:00 03/19/20 09:59 03/19/20 09:59 03/19/20 09:59 Oxygen Flow Rate (L/min) 2 Oxygen Delivery Method Nasal Cannula Weight: 95.254 kg Body Mass Index (BMI) 28.5 Finger Stick Blood Glucose 146 Microbiology Past 72 Hours 03/18/20 15:10 Legionella Antigen - Final Urine, Clean Catch 03/18/20 15:10 Streptococcus pneumoniae Antigen (M - Final Urine, Clean Catch Laboratory Tests Past 24 Hrs 03/18/20 03/18/20 03/18/20 15:10 15:18 15:20 WBC 8.8 RBC 4.40 L Hgb 14.1 Hct 40.8 MCV 92.7 MCH 32.0 MCHC 34.6 RDW Std Deviation 47.4 H RDW Coeff of Josh 13.9 Plt Count 197 MPV 9.1 Immature Gran % (Auto) 0.600 Neut % (Auto) 83.6 H Lymph % (Auto) 4.6 L [place] % (Auto) 10.9 H Eos % (Auto) 0.1 Baso % (Auto) 0.2 Absolute Neuts (auto) 7.4 Absolute Lymphs (auto) 0.41 L Nucleated RBC % 0 Differential Comment COMMENT PT INR Fibrinogen D-Dimer Quant (PE/DVT) Sodium Potassium Chloride Carbon Dioxide Anion Gap BUN Creatinine Estim Creat Clear Calc Est GFR (MDRD) Af Amer Est GFR (MDRD) Non-Af BUN/Creatinine Ratio Glucose Lactic Acid Calcium Total Bilirubin AST ALT Alkaline Phosphatase Lactate Dehydrogenase B-Natriuretic Peptide Total Protein Albumin Globulin Albumin/Globulin Ratio Procalcitonin Urine Color Yellow Urine Clarity Clear Urine pH 5.0 Ur Specific Snyder 1.020 Urine Protein 30 H Urine Glucose (UA) Normal Urine Ketones 5 H Urine Occult Blood 25 H Urine Nitrite Negative Urine Bilirubin Negative Urine Urobilinogen Normal Ur Leukocyte Esterase 25 H Urine RBC 0-5 SEEN Urine WBC 0-5 SEEN Ur Squamous Epith Cells 0 SEEN Urine Bacteria 0 SEEN Urine Mucus 0 SEEN COVID-19 ([facility]) Positive 03/18/20 03/18/20 03/18/20 15:20 15:20 20:40 WBC RBC Hgb Hct MCV MCH MCHC RDW Std Deviation RDW Coeff of Josh Plt Count MPV Immature Gran % (Auto) Neut % (Auto) Lymph % (Auto) [place] % (Auto) Eos % (Auto) Baso % (Auto) Absolute Neuts (auto) Absolute Lymphs (auto) Nucleated RBC % Differential Comment PT 13.4 INR 1.1 Fibrinogen 672 H D-Dimer Quant (PE/DVT) 0.97 H* Sodium 132 L Potassium 4.4 Chloride 102 Carbon Dioxide 26.0 Anion Gap 4 L BUN 21 H Creatinine 1.15 Estim Creat Clear Calc 54.36 Est GFR (MDRD) Af Amer 78 Est GFR (MDRD) Non-Af 65 BUN/Creatinine Ratio 18.3 Glucose 132 H Lactic Acid 1.7 Calcium 9.2 Total Bilirubin 0.90 AST 27 ALT 25 Alkaline Phosphatase 90 Lactate Dehydrogenase B-Natriuretic Peptide Total Protein 7.2 Albumin 3.2 Globulin 4.0 Albumin/Globulin Ratio 0.8 L Procalcitonin Urine Color Urine Clarity Urine pH Ur Specific Snyder Urine Protein Urine Glucose (UA) Urine Ketones Urine Occult Blood Urine Nitrite Urine Bilirubin Urine Urobilinogen Ur Leukocyte Esterase Urine RBC Urine WBC Ur Squamous Epith Cells Urine Bacteria Urine Mucus COVID-19 ([facility]) 03/18/20 03/18/20 03/18/20 20:40 20:40 20:40 WBC RBC Hgb Hct MCV MCH MCHC RDW Std Deviation RDW Coeff of Josh Plt Count MPV Immature Gran % (Auto) Neut % (Auto) Lymph % (Auto) [place] % (Auto) Eos % (Auto) Baso % (Auto) Absolute Neuts (auto) Absolute Lymphs (auto) Nucleated RBC % Differential Comment PT INR Fibrinogen D-Dimer Quant (PE/DVT) Sodium Potassium Chloride Carbon Dioxide Anion Gap BUN Creatinine Estim Creat Clear Calc Est GFR (MDRD) Af Amer Est GFR (MDRD) Non-Af BUN/Creatinine Ratio Glucose Lactic Acid Calcium Total Bilirubin AST ALT Alkaline Phosphatase Lactate Dehydrogenase 213 B-Natriuretic Peptide 126.6 H Total Protein Albumin Globulin Albumin/Globulin Ratio Procalcitonin 0.14 H Urine Color Urine Clarity Urine pH Ur Specific Snyder Urine Protein Urine Glucose (UA) Urine Ketones Urine Occult Blood Urine Nitrite Urine Bilirubin Urine Urobilinogen Ur Leukocyte Esterase Urine RBC Urine WBC Ur Squamous Epith Cells Urine Bacteria Urine Mucus COVID-19 ([facility]) 03/19/20 03/19/20 03/19/20 07:20 07:20 07:20 WBC 6.6 RBC 3.90 L Hgb 12.5 L Hct 37.1 L MCV 95.1 H MCH 32.1 H MCHC 33.7 RDW Std Deviation 50.4 H RDW Coeff of Josh 14.3 Plt Count 173 MPV 9.2 Immature Gran % (Auto) 0.300 Neut % (Auto) 70.4 H Lymph % (Auto) 12.8 L [place] % (Auto) 16.0 H Eos % (Auto) 0.0 Baso % (Auto) 0.5 Absolute Neuts (auto) 4.6 Absolute Lymphs (auto) 0.84 Nucleated RBC % 0 Differential Comment PT INR Fibrinogen D-Dimer Quant (PE/DVT) 0.90 H* Sodium 135 L Potassium 4.6 Chloride 103 Carbon Dioxide 28.0 Anion Gap 4 L BUN 17 Creatinine 0.95 Estim Creat Clear Calc 65.80 Est GFR (MDRD) Af Amer 98 Est GFR (MDRD) Non-Af 81 BUN/Creatinine Ratio 18.0 Glucose 103 Lactic Acid Calcium 8.6 Total Bilirubin 0.90 AST 20 ALT 21 Alkaline Phosphatase 76 Lactate Dehydrogenase B-Natriuretic Peptide Total Protein 5.8 L Albumin 2.7 L Globulin 3.1 Albumin/Globulin Ratio 0.9 Procalcitonin Urine Color Urine Clarity Urine pH Ur Specific Snyder Urine Protein Urine Glucose (UA) Urine Ketones Urine Occult Blood Urine Nitrite Urine Bilirubin Urine Urobilinogen Ur Leukocyte Esterase Urine RBC Urine WBC Ur Squamous Epith Cells Urine Bacteria Urine Mucus COVID-19 ([facility]) - Other Studies Radiology: [] reviewed Other Studies: [] Route of nutrition/ use of supplements: [] Nutritional Intake: [] IV Site: [] Duron Catheter: [] - Physical Exam General: Alert, Oriented x3, Cooperative, No apparent distress HEENT: Atraumatic, PERRLA, EOMI Neck: Supple, No Nodes Lungs: Diminished Cardiovascular: Regular rate, Regular Rhythm Abdomen: Soft, Non Tender, Non-Distended Extremities: No edema Skin: No rashes IV Site: Peripheral, without redness Musculoskeletal: No Tenderness to Palpation of Joints or Extremities Neurological: Cranial nerves II-XII grossly intact - Assessment/Plan Antibiotics: [] Assessment/Plan: [] Active and Suspected Problems (Last Updated 03/13/20 @ 08:18 by Sis Patel) Pneumonia due to COVID-19 virus (Acute) Hypoxia (Acute) Vomiting (Acute) Diarrhea (Acute) covid with hypoxia - po dex, will start remdesivir, cont lovenox 30mg bid. Will check ABO. Will follow, thank you
--- NOTE | 2020-03-19 21:00 | NURSING ---
rn charge called to this RN to inform that when viewing camera, pt is sitting on the floor and she communicated to him through the intercom. This RN entered room. Pt alert, denies hitting head or having any pain. Bed exit was thought to be on. Pt verbalized having to void. x2 assist to get patient back to bed, assisted to use urinal. pt again denies pain, bed exit on, reinforced how to use call light. MD notified with no orders given at this time.
[2020-03-19] MEDS: Aspirin 81 MG TAB.CHEW PO (21:33)
[2020-03-19] MEDS: Atorvastatin Calcium 40 MG Tablet PO (21:33)
[2020-03-20] VITALS (16 sets, daily range): BP systolic 133–167; BP diastolic 65–82; PULSE 68–89; RESP 18–22; TEMP 35.3–36.2; O2SAT 77–98
[2020-03-20 07:26] LABS: Absolute Lymphocyte Count 0.59 X10^3/uL (0.83-4.51); Absolute Neutrophil Count 6.6 X10^3/uL (2.0-7.7); Basophil# 0.01 X10^3/uL; Basophil% 0.1 % (0-1); Hematocrit 36.5 % (40-54); Hemoglobin 12.6 g/dL (13.0-16.5); Lymphocyte # 0.59 X10^3/ul (4.0); Lymphocyte % 7.1 % (19-41); Mean Corp Hgb Conc 34.5 g/dL (32-36); Mean Corpuscular Hgb 31.7 pg (27.0-32.0); Mean Corpuscular Volume 91.9 fL (80-94); Mean Platelet Vol. 9.4 fl (6.2-12.0); Monocyte# 1.04 X10^3/uL; Monocyte% 12.5 % (0-10); NRBC Flagged by Analyzer 0 % (0-5); Neutrophil % 79.7 % (47-70); POSITIVE DIFFERENTIAL YES; Platelet Count 212 K/mm3 (150-450); RBC Distribution Width CV 13.8 % (11.6-14.6); RBC Distribution Width SD 47.4 fl (35.1-43.9); Red Blood Count 3.97 M/mm3 (4.6-6.2); White Blood Count 8.3 K/mm3 (4.4-11.0)
[2020-03-20 07:41] LABS: Differential Indicated SCAN CRITERIA MET
[2020-03-20 07:52] LABS: BUN 22 mg/dL (7-18); Creatinine, Serum 0.87 mg/dL (0.70-1.30); EST Glomerular Filtration Rate 90 mL/min (>60); Estimated Creatinine Clearance 71.85 ml/min; Glucose 123 mg/dL (74-106)
[2020-03-20 07:53] LABS: ALB/GLOB Ratio 0.7 RATIO (0.9-2.4); AST(SGOT) 29 U/L (15-37); Alanine Aminotransfer ALT/SGPT 27 U/L (16-61); Albumin, Serum 2.6 g/dL (3.2-5.0); Alkaline Phosphatase 74 U/L (45-117); Anion Gap 6 (5-15); BUN/Creat Ratio 25.4 RATIO (10-20); Calcium,Total 9.2 mg/dL (8.5-10.1); Chloride 101 mmol/L (98-107); Est Glom Filt Rate - Afr Amer 109 mL/min (>60); Globulin 3.7 g/dL (2.2-4.2); Protein, Total 6.3 g/dL (6.4-8.2); Sodium Level 133 mmol/L (136-145)
[2020-03-20 08:25] LABS: Differential Comment SCANNED
--- NOTE | 2020-03-20 09:08 | NURSING ---
spoke with pt spouse Lea on the telephone- updated on pt status. spouse states he has been terribly confused at home, even walking to the kitchen and not being able to figure out what to eat. his balance has been increasingly worse. Lea states that it is okay to call her on her cellphone any time day or night if her spouse starts becoming increasingly confused or agitated, states he cell phone number should be on the white board in the pt room and she has it on all the time in case she is needed.
[2020-03-20] MEDS: Escitalopram Oxalate 10 MG Tablet 5 MG PO (10:33)
[2020-03-20] MEDS: dexAMETHasone 4 MG Tablet 6 MG PO (10:33)
[2020-03-20] MEDS: Enoxaparin 30 MG/0.3 ML Syringe SC ×2 (10:34→22:15)
[2020-03-20] MEDS: Metoprolol(XL)Succ 25 MG Tablet PO (10:34)
[2020-03-20] MEDS: Lisinopril 10 MG Tablet PO (10:35)
[2020-03-20] MEDS: Docusate Sodium 100 MG Capsule PO (10:37)
[2020-03-20] MEDS: 0.9% Saline Lock 10 ML Syringe IV ×2 (11:00→22:15)
[2020-03-20] MEDS: Acetaminophen 325 MG Tablet 650 MG PO (11:10)
--- NOTE | 2020-03-20 14:09 | CASEMGMT ---
Social Work Taty RN reporting that pt is concerned with pt returning home. SW called pt Lea and discussed discharge plan. Per Lea, pt was recently at [facility] for a TIA, returned home and then had a second TIA and went to a hospital in [place]. Pt had a follow up appointment in [place] today with a vascular surgeon to discuss treatment plan for clogged corotids. Appt has been rescheduled for 04/02. Lea reports pt was functionally independent from the time of TIAs until Monday when pt Covid symptoms started. On Monday pt was much worse and was having difficulty walking and displaying confusion which is not normal for this pt. SW explained that therapy has been ordered to evaluate the pt. Discussed discharge options including home with home health services which pt has had in the past through [facility] and short term SNF placement for rehabilitation. LUCILLE explained that pt would be quarantined with no visitors and that there are no facilities in the [facility] accepting pt with Covid. Lea stating that pt could not go to a longterm because he would not want to do that. Then in next statement she states if pt is still contagious when he is discharged from the hospital he would not be able to return home and put her at risk for viv Covid. has been tested for Covid and is awaiting results. SW will followup once pt sees therapy. Plan: Home with Home Health vs. SNF [facility]
--- NOTE | 2020-03-20 15:26 | PCM.PN.HOSP ---
Patient Problems: Active and Suspected Problems (Last Updated 03/13/20 @ 08:18 by Sis Patel) Pneumonia due to COVID-19 virus (Acute) Hypoxia (Acute) Vomiting (Acute) Diarrhea (Acute) Subjective: Says that he feels great however in conversation with his she does not feel like she would be able to take care of him at home Vitals/I&O's: Vital Signs Temp Pulse Resp BP Pulse Ox 97.2 F L 84 18 133/70 H 93 03/20/20 15:22 03/20/20 15:22 03/20/20 15:22 03/20/20 15:22 03/20/20 15:22 Oxygen Flow Rate (L/min) 1 Oxygen Delivery Method Nasal Cannula Weight: 209 lb 15.986 oz Body Mass Index (BMI) 28.5 Finger Stick Blood Glucose 146 Intake and Output for Last 24 Hours 03/18/20 03/19/20 03/20/20 23:59 23:59 23:59 Intake Total 500 / 500 2900 / 2900 450 / 450 Output Total 1200 / 1200 375 / 375 Balance 500 / 300 1700 / 1700 75 / 75 General: Alert, Oriented x3, Cooperative, No apparent distress HEENT: Atraumatic, PERRLA, EOMI, Normocephalic Oral: Moist Mucosa Neck: Supple, No JVD Lungs: Normal air movement, No rhonchi, No wheeze, No rales, Diminished Cardiovascular: Regular rate, Regular Rhythm, Normal S1, Normal S2, No murmurs Abdomen: Soft, Non Tender, Non-Distended, No Hepato-splenomegaly Extremities: Capillary Refill Less than 3 Seconds, Edema - Trace pitting edema bilaterally Skin: No rashes, No breakdown Neurological: Neuro grossly intact, Sensory exam intact to light touch and pain Psych/Mental Status: Flat Affect Microbiology Past 72 Hours 03/18/20 15:25 Blood Culture (Wb) - Anticubital Left Blood Culture - Preliminary No growth in 48 hours. 03/18/20 15:20 Blood Culture (Wb) - Right Wrist Blood Culture - Preliminary No growth in 48 hours. 03/18/20 15:10 Urine, Clean Catch Urine Culture - Final Mixed Gram Positive Organisms 03/18/20 15:10 Urine, Clean Catch Legionella Antigen - Final 03/18/20 15:10 Urine, Clean Catch Streptococcus pneumoniae Antigen (M - Final Laboratory Results 03/18/20 20:40: Blood Type O POSITIVE 03/20/20 06:50: WBC 8.3, RBC 3.97 L, Hgb 12.6 L, Hct 36.5 L, MCV 91.9, MCH 31.7, MCHC 34.5, RDW Std Deviation 47.4 H, RDW Coeff of Josh 13.8, Plt Count 212, MPV 9.4, Immature Gran % (Auto) 0.600, Neut % (Auto) 79.7 H, Lymph % (Auto) 7.1 L, [place] % (Auto) 12.5 H, Eos % (Auto) 0.0, Baso % (Auto) 0.1, Absolute Neuts (auto) 6.6, Absolute Lymphs (auto) 0.59 L, Nucleated RBC % 0, Differential Comment SCANNED 03/20/20 06:50: Sodium 133 L, Potassium 4.0, Chloride 101, Carbon Dioxide 26.0, Anion Gap 6, BUN 22 H, Creatinine 0.87, Estim Creat Clear Calc 71.85, Est GFR (MDRD) Af Amer 109, Est GFR (MDRD) Non-Af 90, BUN/Creatinine Ratio 25.4 H, Glucose 123 H, Calcium 9.2, Total Bilirubin 0.70, AST 29, ALT 27, Alkaline Phosphatase 74, Total Protein 6.3 L, Albumin 2.6 L, Globulin 3.7, Albumin/Globulin Ratio 0.7 L Current Medications Acetaminophen (Acetaminophen 325 Mg Tablet) 650 mg PO Q4H PRN PRN PRN Reason: Pain Score 1-10/Temp > 100.7 F Last Admin: 03/20/20 11:10 Dose: 650 mg Documented by: Al Hydroxide/Mg Hydroxide (Mag Hydrox/Al Hydrox/Simeth 30 Ml Udc) 30 ml PO Q6H PRN PRN PRN Reason: Gastric Burning Aspirin (Aspirin 81 Mg Tab.Chew) 81 mg PO QHS [facility] Last Admin: 03/19/20 21:33 Dose: 81 mg Documented by: Atorvastatin Calcium (Atorvastatin Calcium 40 Mg Tablet) 40 mg PO QHS [facility] Last Admin: 03/19/20 21:33 Dose: 40 mg Documented by: Dexamethasone (Dexamethasone 4 Mg Tablet) 6 mg PO DAILY [facility] Stop: 03/28/20 10:01 Last Admin: 03/20/20 10:33 Dose: 6 mg Documented by: Docusate Sodium (Docusate Sodium 100 Mg Capsule) 100 mg PO BID PRN PRN PRN Reason: Constipation Last Admin: 03/20/20 10:37 Dose: 100 mg Documented by: Enoxaparin Sodium (Enoxaparin 30 Mg/0.3 Ml Syringe) 30 mg SC BID [facility] Last Admin: 03/20/20 10:34 Dose: 30 mg Documented by: Escitalopram Oxalate (Escitalopram Oxalate 10 Mg Tablet) 5 mg PO DAILY [facility] Last Admin: 03/20/20 10:33 Dose: 5 mg Documented by: Remdesivir 100 mg/ Sodium (Chloride) 250 mls @ 125 mls/hr IV DAILY [facility]; Protocol Stop: 03/23/20 11:59 Last Infusion: 03/20/20 13:00 Dose: Infused Documented by: Lisinopril (Lisinopril 10 Mg Tablet) 10 mg PO DAILY [facility] Last Admin: 03/20/20 10:35 Dose: 10 mg Documented by: Metoprolol Succinate (Metoprolol(Xl)Succ 25 Mg Tablet) 25 mg PO DAILY [facility] Last Admin: 03/20/20 10:34 Dose: 25 mg Documented by: Morphine Sulfate (Morphine 2 Mg/Ml Syringe) 2 - 4 mg IV Q3H PRN PRN PRN Reason: Pain Score 6-10 Morphine Sulfate (Morphine 2 Mg/Ml Syringe) 1 - 2 mg IV Q4H PRN PRN PRN Reason: Pain Score 4-5 Nitroglycerin (Nitroglycerin (Inpatient Use) 0.4 Mg Tab.Subl) 0.4 mg SUBLINGUAL Q5M PRN PRN Reason: CARDIAC/CHEST PAIN Ondansetron HCl (Ondansetron 4 Mg/2 Ml Vial) 4 mg IV Q8H PRN PRN PRN Reason: NAUSEA/VOMITING Oxycodone HCl (Oxycodone 5 Mg Tablet) 5 mg PO Q4H PRN PRN PRN Reason: Pain Score 4-5 Last Admin: 03/19/20 02:50 Dose: 5 mg Documented by: Pantoprazole Sodium (Pantoprazole Sodium 40 Mg Tablet) 40 mg PO DAILY PRN PRN PRN Reason: acid reflux Prochlorperazine Edisylate (Prochlorperazine 10 Mg/2 Ml Vial) 10 mg IV Q6H PRN PRN PRN Reason: Nausea/Vomiting Senna (Senna Tablet) 1 tablet PO TIDCM [place] Sodium Chloride (0.9% Saline Lock 10 Ml Syringe) 10 - 40 ml IV UD PRN PRN Reason: SALINE FLUSH Last Admin: 03/20/20 11:00 Dose: 10 ml Documented by: STROKE Vital Signs/Narrative: Vital Signs Temp Pulse Resp BP Pulse Ox 03/20/20 15:22 97.2 F L 84 18 133/70 H 93 03/20/20 13:59 85 Medical Necessity - Tobacco Use Smoking Status: Former smoker Assessment/Plan All Active Problems (Last Updated 03/13/20 @ 08:18 by Sis Patel) Pneumonia due to COVID-19 virus (Acute) Hypoxia (Acute) Vomiting (Acute) Diarrhea (Acute) Transient ischemic attack (Acute) 1. Acute hypoxic respiratory sufficiency secondary to COVID-19 pneumonia/acute viral gastroenteritis -Appreciate ID assistance -Continue with remdesivir and Decadron -PT/OT for evaluation and possible placement recommendations 2. HTN/HLD/history of TIA with carotid narrowing -Continue with blood pressure management. Blood pressures currently stable -Continue with statins -Continue with aspirin 3. Anxiety/depression -Stable -Continue with Escitalopram 4. GERD -Stable -Continue with PPI DVT: Lovenox Inpatient E&M: 98999 Subs Hosp L2
--- NOTE | 2020-03-20 16:47 | PCM.PN.ID ---
Patient Problems: Active and Suspected Problems (Last Updated 03/13/20 @ 08:18 by Sis Patel) Pneumonia due to COVID-19 virus (Acute) Hypoxia (Acute) Vomiting (Acute) Diarrhea (Acute) Subjective: Feeling much better, no fever, breathing improved. - Physical Exam Vitals/I&O's: Vital Signs Temp Pulse Resp BP Pulse Ox 97.2 F L 84 18 133/70 H 93 03/20/20 15:22 03/20/20 15:22 03/20/20 15:22 03/20/20 15:22 03/20/20 15:22 Oxygen Flow Rate (L/min) 1 Oxygen Delivery Method Nasal Cannula Weight: 95.254 kg Body Mass Index (BMI) 28.5 Finger Stick Blood Glucose 146 Intake and Output for Last 24 Hours 03/18/20 03/19/20 03/20/20 23:59 23:59 23:59 Intake Total 500 / 500 2900 / 2900 450 / 450 Output Total 1200 / 1200 375 / 375 Balance 500 / 300 1700 / 1700 75 / 75 General: Alert, Cooperative, No apparent distress Lungs: Clear to auscultation, Diminished Cardiovascular: Regular rate, Regular Rhythm Abdomen: Soft, Non Tender, Non-Distended Skin: No rashes Microbiology Past 72 Hours 03/18/20 15:25 Blood Culture (Wb) - Anticubital Left Blood Culture - Preliminary No growth in 48 hours. 03/18/20 15:20 Blood Culture (Wb) - Right Wrist Blood Culture - Preliminary No growth in 48 hours. 03/18/20 15:10 Urine, Clean Catch Urine Culture - Final Mixed Gram Positive Organisms 03/18/20 15:10 Urine, Clean Catch Legionella Antigen - Final 03/18/20 15:10 Urine, Clean Catch Streptococcus pneumoniae Antigen (M - Final Laboratory Results 03/18/20 20:40: Blood Type O POSITIVE 03/20/20 06:50: WBC 8.3, RBC 3.97 L, Hgb 12.6 L, Hct 36.5 L, MCV 91.9, MCH 31.7, MCHC 34.5, RDW Std Deviation 47.4 H, RDW Coeff of Josh 13.8, Plt Count 212, MPV 9.4, Immature Gran % (Auto) 0.600, Neut % (Auto) 79.7 H, Lymph % (Auto) 7.1 L, [place] % (Auto) 12.5 H, Eos % (Auto) 0.0, Baso % (Auto) 0.1, Absolute Neuts (auto) 6.6, Absolute Lymphs (auto) 0.59 L, Nucleated RBC % 0, Differential Comment SCANNED 03/20/20 06:50: Sodium 133 L, Potassium 4.0, Chloride 101, Carbon Dioxide 26.0, Anion Gap 6, BUN 22 H, Creatinine 0.87, Estim Creat Clear Calc 71.85, Est GFR (MDRD) Af Amer 109, Est GFR (MDRD) Non-Af 90, BUN/Creatinine Ratio 25.4 H, Glucose 123 H, Calcium 9.2, Total Bilirubin 0.70, AST 29, ALT 27, Alkaline Phosphatase 74, Total Protein 6.3 L, Albumin 2.6 L, Globulin 3.7, Albumin/Globulin Ratio 0.7 L Current Medications Acetaminophen (Acetaminophen 325 Mg Tablet) 650 mg PO Q4H PRN PRN PRN Reason: Pain Score 1-10/Temp > 100.7 F Last Admin: 03/20/20 11:10 Dose: 650 mg Documented by: Al Hydroxide/Mg Hydroxide (Mag Hydrox/Al Hydrox/Simeth 30 Ml Udc) 30 ml PO Q6H PRN PRN PRN Reason: Gastric Burning Aspirin (Aspirin 81 Mg Tab.Chew) 81 mg PO QHS [facility] Last Admin: 03/19/20 21:33 Dose: 81 mg Documented by: Atorvastatin Calcium (Atorvastatin Calcium 40 Mg Tablet) 40 mg PO QHS [facility] Last Admin: 03/19/20 21:33 Dose: 40 mg Documented by: Dexamethasone (Dexamethasone 4 Mg Tablet) 6 mg PO DAILY [facility] Stop: 03/28/20 10:01 Last Admin: 03/20/20 10:33 Dose: 6 mg Documented by: Docusate Sodium (Docusate Sodium 100 Mg Capsule) 100 mg PO BID PRN PRN PRN Reason: Constipation Last Admin: 03/20/20 10:37 Dose: 100 mg Documented by: Enoxaparin Sodium (Enoxaparin 30 Mg/0.3 Ml Syringe) 30 mg SC BID [facility] Last Admin: 03/20/20 10:34 Dose: 30 mg Documented by: Escitalopram Oxalate (Escitalopram Oxalate 10 Mg Tablet) 5 mg PO DAILY [facility] Last Admin: 03/20/20 10:33 Dose: 5 mg Documented by: Remdesivir 100 mg/ Sodium (Chloride) 250 mls @ 125 mls/hr IV DAILY [facility]; Protocol Stop: 03/23/20 11:59 Last Infusion: 03/20/20 13:00 Dose: Infused Documented by: Lisinopril (Lisinopril 10 Mg Tablet) 10 mg PO DAILY [facility] Last Admin: 03/20/20 10:35 Dose: 10 mg Documented by: Metoprolol Succinate (Metoprolol(Xl)Succ 25 Mg Tablet) 25 mg PO DAILY [facility] Last Admin: 03/20/20 10:34 Dose: 25 mg Documented by: Morphine Sulfate (Morphine 2 Mg/Ml Syringe) 2 - 4 mg IV Q3H PRN PRN PRN Reason: Pain Score 6-10 Morphine Sulfate (Morphine 2 Mg/Ml Syringe) 1 - 2 mg IV Q4H PRN PRN PRN Reason: Pain Score 4-5 Nitroglycerin (Nitroglycerin (Inpatient Use) 0.4 Mg Tab.Subl) 0.4 mg SUBLINGUAL Q5M PRN PRN Reason: CARDIAC/CHEST PAIN Ondansetron HCl (Ondansetron 4 Mg/2 Ml Vial) 4 mg IV Q8H PRN PRN PRN Reason: NAUSEA/VOMITING Oxycodone HCl (Oxycodone 5 Mg Tablet) 5 mg PO Q4H PRN PRN PRN Reason: Pain Score 4-5 Last Admin: 03/19/20 02:50 Dose: 5 mg Documented by: Pantoprazole Sodium (Pantoprazole Sodium 40 Mg Tablet) 40 mg PO DAILY PRN PRN PRN Reason: acid reflux Prochlorperazine Edisylate (Prochlorperazine 10 Mg/2 Ml Vial) 10 mg IV Q6H PRN PRN PRN Reason: Nausea/Vomiting Senna (Senna Tablet) 1 tablet PO TIDCM [facility] Sodium Chloride (0.9% Saline Lock 10 Ml Syringe) 10 - 40 ml IV UD PRN PRN Reason: SALINE FLUSH Last Admin: 03/20/20 11:00 Dose: 10 ml Documented by: Medical Necessity - Tobacco Use Smoking Status: Former smoker Route of nutrition/ use of supplements: [] Nutritional Intake: [] IV Site: [] Duron Catheter: [] - Assessment/Plan Antibiotics: [] Assessment/Plan: [] Active and Suspected Problems (Last Updated 03/13/20 @ 08:18 by Sis Patel) Pneumonia due to COVID-19 virus (Acute) Hypoxia (Acute) Vomiting (Acute) Diarrhea (Acute) covid with hypoxia - po dex, remdesivir, cont lovenox 30mg bid. Feeling much better, ok for home with 10 days total of po dex, low dose anticoag for 2 weeks, O2 as needed. Will follow
[2020-03-20] MEDS: Senna Tablet 1 TABLET PO (18:56)
[2020-03-20] MEDS: Atorvastatin Calcium 40 MG Tablet PO (22:15)
[2020-03-20] MEDS: Aspirin 81 MG TAB.CHEW PO (22:15)
[2020-03-21] VITALS (15 sets, daily range): BP systolic 143–160; BP diastolic 70–74; PULSE 61–85; RESP 20–24; TEMP 35.8–36.1; O2SAT 89–96
[2020-03-21 07:47] LABS: Absolute Lymphocyte Count 0.78 X10^3/uL (0.83-4.51); Absolute Neutrophil Count 8.9 X10^3/uL (2.0-7.7); Hematocrit 37.8 % (40-54); Hemoglobin 13.1 g/dL (13.0-16.5); Lymphocyte # 0.78 X10^3/ul (4.0); Lymphocyte % 7.1 % (19-41); Mean Corp Hgb Conc 34.7 g/dL (32-36); Mean Corpuscular Hgb 32.3 pg (27.0-32.0); Mean Corpuscular Volume 93.1 fL (80-94); Mean Platelet Vol. 9.3 fl (6.2-12.0); Monocyte# 1.26 X10^3/uL; Monocyte% 11.5 % (0-10); NRBC Flagged by Analyzer 0 % (0-5); Neutrophil # 8.87 X10^3/uL (2.7-7.7); Neutrophil % 80.9 % (47-70); Platelet Count 242 K/mm3 (150-450); RBC Distribution Width CV 13.9 % (11.6-14.6); RBC Distribution Width SD 47.7 fl (35.1-43.9); Red Blood Count 4.06 M/mm3 (4.6-6.2)
[2020-03-21 08:32] LABS: ALB/GLOB Ratio 0.7 RATIO (0.9-2.4); AST(SGOT) 28 U/L (15-37); Alanine Aminotransfer ALT/SGPT 33 U/L (16-61); Albumin, Serum 2.5 g/dL (3.2-5.0); Alkaline Phosphatase 70 U/L (45-117); Anion Gap 3 (5-15); BUN 29 mg/dL (7-18); Calcium,Total 9.2 mg/dL (8.5-10.1); Chloride 102 mmol/L (98-107); Creatinine, Serum 0.83 mg/dL (0.70-1.30); EST Glomerular Filtration Rate 94 mL/min (>60); Est Glom Filt Rate - Afr Amer 114 mL/min (>60); Estimated Creatinine Clearance 75.31 ml/min; Globulin 3.6 g/dL (2.2-4.2); Glucose 116 mg/dL (74-106); Potassium 4.5 mmol/L (3.5-5.1); Protein, Total 6.1 g/dL (6.4-8.2); Sodium Level 134 mmol/L (136-145)
[2020-03-21] MEDS: Escitalopram Oxalate 10 MG Tablet 5 MG PO (09:15)
[2020-03-21] MEDS: dexAMETHasone 4 MG Tablet 6 MG PO (09:15)
[2020-03-21] MEDS: Enoxaparin 30 MG/0.3 ML Syringe SC ×2 (09:16→20:33)
[2020-03-21] MEDS: Senna Tablet 1 TABLET PO ×3 (09:16→17:26)
[2020-03-21] MEDS: Lisinopril 10 MG Tablet PO (09:16)
[2020-03-21] MEDS: Metoprolol(XL)Succ 25 MG Tablet PO (09:21)
--- NOTE | 2020-03-21 09:42 | NURSING ---
DR STONER IN ROOM WHILE CHECKING AMBULATING PULSE OX.
[2020-03-21] MEDS: 0.9% Saline Lock 10 ML Syringe IV ×2 (10:35→20:33)
--- NOTE | 2020-03-21 11:23 | PCM.PN.HOSP ---
Patient Problems: Active and Suspected Problems (Last Updated 03/13/20 @ 08:18 by Sis Patel) Pneumonia due to COVID-19 virus (Acute) Hypoxia (Acute) Vomiting (Acute) Diarrhea (Acute) Subjective: Doing well. Continue oxygen sats on 1 to 2 L nasal cannula Vitals/I&O's: Vital Signs Temp Pulse Resp BP Pulse Ox 96.4 F L 83 24 H 143/70 H 93 03/21/20 09:22 03/21/20 09:22 03/21/20 09:22 03/21/20 09:22 03/21/20 09:22 Oxygen Flow Rate (L/min) 2 Oxygen Delivery Method Nasal Cannula Weight: 209 lb 15.986 oz Body Mass Index (BMI) 28.5 Finger Stick Blood Glucose 146 Intake and Output for Last 24 Hours 03/19/20 03/20/20 03/21/20 23:59 23:59 23:59 Intake Total 2900 / 2900 1150 / 1150 600 / 600 Output Total 1200 / 1200 950 / 950 550 / 550 Balance 1700 / 1700 200 / 200 50 / 50 General: Alert, Oriented x3, Cooperative, No apparent distress HEENT: Atraumatic, PERRLA, EOMI, Normocephalic Oral: Moist Mucosa Neck: Supple, No JVD Lungs: Normal air movement, No rhonchi, No wheeze, No rales, Diminished Cardiovascular: Regular rate, Regular Rhythm, Normal S1, Normal S2, No murmurs Abdomen: Soft, Non Tender, Non-Distended, No Hepato-splenomegaly Extremities: Capillary Refill Less than 3 Seconds, Edema - Trace pitting edema bilaterally Skin: No rashes, No breakdown Neurological: Neuro grossly intact, Sensory exam intact to light touch and pain Psych/Mental Status: Flat Affect Microbiology Past 72 Hours 03/18/20 15:25 Blood Culture (Wb) - Anticubital Left Blood Culture - Preliminary No growth in 48 hours. 03/18/20 15:20 Blood Culture (Wb) - Right Wrist Blood Culture - Preliminary No growth in 48 hours. 03/18/20 15:10 Urine, Clean Catch Urine Culture - Final Mixed Gram Positive Organisms 03/18/20 15:10 Urine, Clean Catch Legionella Antigen - Final 03/18/20 15:10 Urine, Clean Catch Streptococcus pneumoniae Antigen (M - Final Laboratory Results 03/21/20 07:29: WBC 11.0, RBC 4.06 L, Hgb 13.1, Hct 37.8 L, MCV 93.1, MCH 32.3 H, MCHC 34.7, RDW Std Deviation 47.7 H, RDW Coeff of Josh 13.9, Plt Count 242, MPV 9.3, Immature Gran % (Auto) 0.500, Neut % (Auto) 80.9 H, Lymph % (Auto) 7.1 L, [place] % (Auto) 11.5 H, Eos % (Auto) 0.0, Baso % (Auto) 0.0, Absolute Neuts (auto) 8.9 H, Absolute Lymphs (auto) 0.78 L, Nucleated RBC % 0 03/21/20 07:29: Sodium 134 L, Potassium 4.5, Chloride 102, Carbon Dioxide 29.0, Anion Gap 3 L, BUN 29 H, Creatinine 0.83, Estim Creat Clear Calc 75.31, Est GFR (MDRD) Af Amer 114, Est GFR (MDRD) Non-Af 94, BUN/Creatinine Ratio 35.0 H, Glucose 116 H, Calcium 9.2, Total Bilirubin 0.70, AST 28, ALT 33, Alkaline Phosphatase 70, Total Protein 6.1 L, Albumin 2.5 L, Globulin 3.6, Albumin/Globulin Ratio 0.7 L Current Medications Acetaminophen (Acetaminophen 325 Mg Tablet) 650 mg PO Q4H PRN PRN PRN Reason: Pain Score 1-10/Temp > 100.7 F Last Admin: 03/20/20 11:10 Dose: 650 mg Documented by: Al Hydroxide/Mg Hydroxide (Mag Hydrox/Al Hydrox/Simeth 30 Ml Udc) 30 ml PO Q6H PRN PRN PRN Reason: Gastric Burning Aspirin (Aspirin 81 Mg Tab.Chew) 81 mg PO QHS [facility] Last Admin: 03/20/20 22:15 Dose: 81 mg Documented by: Atorvastatin Calcium (Atorvastatin Calcium 40 Mg Tablet) 40 mg PO QHS [facility] Last Admin: 03/20/20 22:15 Dose: 40 mg Documented by: Dexamethasone (Dexamethasone 4 Mg Tablet) 6 mg PO DAILY [facility] Stop: 03/28/20 10:01 Last Admin: 03/21/20 09:15 Dose: 6 mg Documented by: Docusate Sodium (Docusate Sodium 100 Mg Capsule) 100 mg PO BID PRN PRN PRN Reason: Constipation Last Admin: 03/20/20 10:37 Dose: 100 mg Documented by: Enoxaparin Sodium (Enoxaparin 30 Mg/0.3 Ml Syringe) 30 mg SC BID [facility] Last Admin: 03/21/20 09:16 Dose: 30 mg Documented by: Escitalopram Oxalate (Escitalopram Oxalate 10 Mg Tablet) 5 mg PO DAILY [facility] Last Admin: 03/21/20 09:15 Dose: 5 mg Documented by: Remdesivir 100 mg/ Sodium (Chloride) 250 mls @ 125 mls/hr IV DAILY [facility]; Protocol Stop: 03/23/20 11:59 Last Admin: 03/21/20 10:35 Dose: 125 mls/hr Documented by: Lisinopril (Lisinopril 10 Mg Tablet) 10 mg PO DAILY [facility] Last Admin: 03/21/20 09:16 Dose: 10 mg Documented by: Metoprolol Succinate (Metoprolol(Xl)Succ 25 Mg Tablet) 25 mg PO DAILY [facility] Last Admin: 03/21/20 09:21 Dose: 25 mg Documented by: Morphine Sulfate (Morphine 2 Mg/Ml Syringe) 2 - 4 mg IV Q3H PRN PRN PRN Reason: Pain Score 6-10 Morphine Sulfate (Morphine 2 Mg/Ml Syringe) 1 - 2 mg IV Q4H PRN PRN PRN Reason: Pain Score 4-5 Nitroglycerin (Nitroglycerin (Inpatient Use) 0.4 Mg Tab.Subl) 0.4 mg SUBLINGUAL Q5M PRN PRN Reason: CARDIAC/CHEST PAIN Ondansetron HCl (Ondansetron 4 Mg/2 Ml Vial) 4 mg IV Q8H PRN PRN PRN Reason: NAUSEA/VOMITING Oxycodone HCl (Oxycodone 5 Mg Tablet) 5 mg PO Q4H PRN PRN PRN Reason: Pain Score 4-5 Last Admin: 03/19/20 02:50 Dose: 5 mg Documented by: Pantoprazole Sodium (Pantoprazole Sodium 40 Mg Tablet) 40 mg PO DAILY PRN PRN PRN Reason: acid reflux Prochlorperazine Edisylate (Prochlorperazine 10 Mg/2 Ml Vial) 10 mg IV Q6H PRN PRN PRN Reason: Nausea/Vomiting Senna (Senna Tablet) 1 tablet PO TIDCM [facility] Last Admin: 03/21/20 09:16 Dose: 1 tablet Documented by: Sodium Chloride (0.9% Saline Lock 10 Ml Syringe) 10 - 40 ml IV UD PRN PRN Reason: SALINE FLUSH Last Admin: 03/21/20 10:35 Dose: 10 ml Documented by: STROKE Vital Signs/Narrative: Vital Signs Temp Pulse Resp BP Pulse Ox 03/21/20 09:22 96.4 F L 83 24 H 143/70 H 93 03/21/20 09:21 83 143/70 H 03/21/20 08:36 96 03/21/20 07:34 89 Medical Necessity - Tobacco Use Smoking Status: Former smoker Assessment/Plan All Active Problems (Last Updated 03/13/20 @ 08:18 by Sis Patel) Pneumonia due to COVID-19 virus (Acute) Hypoxia (Acute) Vomiting (Acute) Diarrhea (Acute) Transient ischemic attack (Acute) 1. Acute hypoxic respiratory sufficiency secondary to COVID-19 pneumonia/acute viral gastroenteritis -Appreciate ID assistance -Continue with remdesivir and Decadron -PT/OT for evaluation and possible placement recommendations 2. HTN/HLD/history of TIA with carotid narrowing -Continue with blood pressure management. Blood pressures currently stable -Continue with statins -Continue with aspirin 3. Anxiety/depression -Stable -Continue with Escitalopram 4. GERD -Stable -Continue with PPI DVT: Lovenox Inpatient E&M: 85432 Subs Hosp L2
[2020-03-21] MEDS: Docusate Sodium 100 MG Capsule PO (13:15)
[2020-03-21] MEDS: Bisacodyl 5 MG Tablet 10 MG PO (18:36)
[2020-03-21] MEDS: Aspirin 81 MG TAB.CHEW PO (20:33)
[2020-03-21] MEDS: MELATONIN 10 MG TABLET PO (20:33)
[2020-03-21] MEDS: Atorvastatin Calcium 40 MG Tablet PO (20:33)
[2020-03-22] VITALS (11 sets, daily range): BP systolic 140–153; BP diastolic 67–73; PULSE 56–90; RESP 20; TEMP 35.6–36.2; O2SAT 93–94
[2020-03-22 06:54] LABS: Absolute Lymphocyte Count 1.11 X10^3/uL (0.83-4.51); Absolute Neutrophil Count 11.1 X10^3/uL (2.0-7.7); Basophil# 0.02 X10^3/uL; Basophil% 0.1 % (0-1); Hematocrit 39.8 % (40-54); Hemoglobin 13.4 g/dL (13.0-16.5); Lymphocyte # 1.11 X10^3/ul (4.0); Lymphocyte % 8.1 % (19-41); Mean Corp Hgb Conc 33.7 g/dL (32-36); Mean Corpuscular Hgb 31.5 pg (27.0-32.0); Mean Corpuscular Volume 93.6 fL (80-94); Mean Platelet Vol. 9.6 fl (6.2-12.0); Monocyte# 1.47 X10^3/uL; Monocyte% 10.7 % (0-10); NRBC Flagged by Analyzer 0 % (0-5); Neutrophil # 11.08 X10^3/uL (2.7-7.7); Neutrophil % 80.5 % (47-70); Platelet Count 320 K/mm3 (150-450); RBC Distribution Width CV 14.1 % (11.6-14.6); RBC Distribution Width SD 47.7 fl (35.1-43.9); Red Blood Count 4.25 M/mm3 (4.6-6.2); White Blood Count 13.8 K/mm3 (4.4-11.0)
[2020-03-22 07:21] LABS: ALB/GLOB Ratio 0.7 RATIO (0.9-2.4); AST(SGOT) 25 U/L (15-37); Alanine Aminotransfer ALT/SGPT 34 U/L (16-61); Albumin, Serum 2.7 g/dL (3.2-5.0); Alkaline Phosphatase 75 U/L (45-117); Anion Gap 4 (5-15); BUN 30 mg/dL (7-18); BUN/Creat Ratio 32.3 RATIO (10-20); Calcium,Total 9.4 mg/dL (8.5-10.1); Chloride 101 mmol/L (98-107); Creatinine, Serum 0.93 mg/dL (0.70-1.30); EST Glomerular Filtration Rate 83 mL/min (>60); Est Glom Filt Rate - Afr Amer 100 mL/min (>60); Estimated Creatinine Clearance 67.22 ml/min; Globulin 3.9 g/dL (2.2-4.2); Glucose 106 mg/dL (74-106); Potassium 4.6 mmol/L (3.5-5.1); Protein, Total 6.6 g/dL (6.4-8.2); Sodium Level 136 mmol/L (136-145)
[2020-03-22] MEDS: Senna Tablet 1 TABLET PO ×3 (09:27→17:52)
[2020-03-22] MEDS: dexAMETHasone 4 MG Tablet 6 MG PO (09:29)
[2020-03-22] MEDS: Escitalopram Oxalate 10 MG Tablet 5 MG PO (09:30)
[2020-03-22] MEDS: Metoprolol(XL)Succ 25 MG Tablet PO (09:30)
[2020-03-22] MEDS: Lisinopril 10 MG Tablet PO (09:30)
[2020-03-22] MEDS: Enoxaparin 30 MG/0.3 ML Syringe SC ×2 (09:31→21:56)
[2020-03-22] MEDS: 0.9% Saline Lock 10 ML Syringe IV ×2 (10:18→21:55)
--- NOTE | 2020-03-22 11:11 | PN_ITS ---
Patient Problems: Active and Suspected Problems (Last Updated 03/13/20 @ 08:18 by Sis Patel) Pneumonia due to COVID-19 virus (Acute) Hypoxia (Acute) Vomiting (Acute) Diarrhea (Acute) Subjective: Doing well, no issues overnight. Containing his oxygen sats on 1 L Vitals/I&O's: Vital Signs Temp Pulse Resp BP Pulse Ox 96.2 F L 90 20 H 140/68 H 93 03/22/20 09:24 03/22/20 09:30 03/22/20 09:24 03/22/20 09:30 03/22/20 09:24 Oxygen Flow Rate (L/min) 1 Oxygen Delivery Method Nasal Cannula Weight: 209 lb 15.986 oz Body Mass Index (BMI) 28.5 Finger Stick Blood Glucose 146 Intake and Output for Last 24 Hours 03/20/20 03/21/20 03/22/20 23:59 23:59 23:59 Intake Total 1150 / 1150 1210 / 1210 600 / 600 Output Total 950 / 950 850 / 1250 1150 / 1150 Balance 200 / 200 360 / -40 -550 / -550 General: Alert, Oriented x3, Cooperative, No apparent distress HEENT: Atraumatic, PERRLA, EOMI, Normocephalic Oral: Moist Mucosa Neck: Supple, No JVD Lungs: Normal air movement, No rhonchi, No wheeze, No rales, Diminished Cardiovascular: Regular rate, Regular Rhythm, Normal S1, Normal S2, No murmurs Abdomen: Soft, Non Tender, Non-Distended, No Hepato-splenomegaly Extremities: Capillary Refill Less than 3 Seconds, Edema - Trace pitting edema bilaterally Skin: No rashes, No breakdown Neurological: Neuro grossly intact, Sensory exam intact to light touch and pain Psych/Mental Status: Flat Affect Microbiology Past 72 Hours 03/18/20 15:25 Blood Culture (Wb) - Anticubital Left Blood Culture - Preliminary No growth in 48 hours. 03/18/20 15:20 Blood Culture (Wb) - Right Wrist Blood Culture - Preliminary No growth in 48 hours. 03/18/20 15:10 Urine, Clean Catch Urine Culture - Final Mixed Gram Positive Organisms Laboratory Results 03/22/20 05:00: WBC 13.8 H, RBC 4.25 L, Hgb 13.4, Hct 39.8 L, MCV 93.6, MCH 31.5, MCHC 33.7, RDW Std Deviation 47.7 H, RDW Coeff of Josh 14.1, Plt Count 320, MPV 9.6, Immature Gran % (Auto) 0.600, Neut % (Auto) 80.5 H, Lymph % (Auto) 8.1 L, [place] % (Auto) 10.7 H, Eos % (Auto) 0.0, Baso % (Auto) 0.1, Absolute Neuts (auto) 11.1 H, Absolute Lymphs (auto) 1.11, Nucleated RBC % 0 03/22/20 05:00: Sodium 136, Potassium 4.6, Chloride 101, Carbon Dioxide 31.0, Anion Gap 4 L, BUN 30 H, Creatinine 0.93, Estim Creat Clear Calc 67.22, Est GFR (MDRD) Af Amer 100, Est GFR (MDRD) Non-Af 83, BUN/Creatinine Ratio 32.3 H, Glucose 106, Calcium 9.4, Total Bilirubin 0.70, AST 25, ALT 34, Alkaline Phosphatase 75, Total Protein 6.6, Albumin 2.7 L, Globulin 3.9, Albumin/Globulin Ratio 0.7 L Current Medications Acetaminophen (Acetaminophen 325 Mg Tablet) 650 mg PO Q4H PRN PRN PRN Reason: Pain Score 1-10/Temp > 100.7 F Last Admin: 03/20/20 11:10 Dose: 650 mg Documented by: Al Hydroxide/Mg Hydroxide (Mag Hydrox/Al Hydrox/Simeth 30 Ml Udc) 30 ml PO Q6H PRN PRN PRN Reason: Gastric Burning Aspirin (Aspirin 81 Mg Tab.Chew) 81 mg PO QHS [facility] Last Admin: 03/21/20 20:33 Dose: 81 mg Documented by: Atorvastatin Calcium (Atorvastatin Calcium 40 Mg Tablet) 40 mg PO QHS [facility] Last Admin: 03/21/20 20:33 Dose: 40 mg Documented by: Dexamethasone (Dexamethasone 4 Mg Tablet) 6 mg PO DAILY [facility] Stop: 03/28/20 10:01 Last Admin: 03/22/20 09:29 Dose: 6 mg Documented by: Docusate Sodium (Docusate Sodium 100 Mg Capsule) 100 mg PO BID PRN PRN PRN Reason: Constipation Last Admin: 03/21/20 13:15 Dose: 100 mg Documented by: Enoxaparin Sodium (Enoxaparin 30 Mg/0.3 Ml Syringe) 30 mg SC BID [facility] Last Admin: 03/22/20 09:31 Dose: 30 mg Documented by: Escitalopram Oxalate (Escitalopram Oxalate 10 Mg Tablet) 5 mg PO DAILY [facility] Last Admin: 03/22/20 09:30 Dose: 5 mg Documented by: Remdesivir 100 mg/ Sodium (Chloride) 250 mls @ 125 mls/hr IV DAILY [facility]; Protocol Stop: 03/23/20 11:59 Last Admin: 03/22/20 10:17 Dose: 125 mls/hr Documented by: Lisinopril (Lisinopril 10 Mg Tablet) 10 mg PO DAILY [facility] Last Admin: 03/22/20 09:30 Dose: 10 mg Documented by: Melatonin (Melatonin 10 Mg Tablet) 10 mg PO QHS [facility] Last Admin: 03/21/20 20:33 Dose: 10 mg Documented by: Metoprolol Succinate (Metoprolol(Xl)Succ 25 Mg Tablet) 25 mg PO DAILY [facility] Last Admin: 03/22/20 09:30 Dose: 25 mg Documented by: Morphine Sulfate (Morphine 2 Mg/Ml Syringe) 2 - 4 mg IV Q3H PRN PRN PRN Reason: Pain Score 6-10 Morphine Sulfate (Morphine 2 Mg/Ml Syringe) 1 - 2 mg IV Q4H PRN PRN PRN Reason: Pain Score 4-5 Nitroglycerin (Nitroglycerin (Inpatient Use) 0.4 Mg Tab.Subl) 0.4 mg SUBLINGUAL Q5M PRN PRN Reason: CARDIAC/CHEST PAIN Ondansetron HCl (Ondansetron 4 Mg/2 Ml Vial) 4 mg IV Q8H PRN PRN PRN Reason: NAUSEA/VOMITING Oxycodone HCl (Oxycodone 5 Mg Tablet) 5 mg PO Q4H PRN PRN PRN Reason: Pain Score 4-5 Last Admin: 03/19/20 02:50 Dose: 5 mg Documented by: Pantoprazole Sodium (Pantoprazole Sodium 40 Mg Tablet) 40 mg PO DAILY PRN PRN PRN Reason: acid reflux Prochlorperazine Edisylate (Prochlorperazine 10 Mg/2 Ml Vial) 10 mg IV Q6H PRN PRN PRN Reason: Nausea/Vomiting Senna (Senna Tablet) 1 tablet PO TIDCM [facility] Last Admin: 03/22/20 09:27 Dose: 1 tablet Documented by: Sodium Chloride (0.9% Saline Lock 10 Ml Syringe) 10 - 40 ml IV UD PRN PRN Reason: SALINE FLUSH Last Admin: 03/22/20 10:18 Dose: 10 ml Documented by: STROKE Vital Signs/Narrative: Vital Signs Temp Pulse Resp BP Pulse Ox 03/22/20 09:30 90 140/68 H 03/22/20 09:24 96.2 F L 90 20 H 140/68 H 93 03/22/20 07:55 94 Medical Necessity - Tobacco Use Smoking Status: Former smoker Assessment/Plan All Active Problems (Last Updated 03/13/20 @ 08:18 by Sis Patel) Pneumonia due to COVID-19 virus (Acute) Hypoxia (Acute) Vomiting (Acute) Diarrhea (Acute) Transient ischemic attack (Acute) 1. Acute hypoxic respiratory sufficiency secondary to COVID-19 pneumonia/acute viral gastroenteritis -Appreciate ID assistance -Continue with remdesivir and Decadron -PT/OT for evaluation and possible placement recommendations -He had symptoms for approximately 1 to 2 weeks prior to admission. His is concerned that if she does not have Covid that he could come back home and give her Covid unfortunately do not have good data to show how long somebody is contagious 1 symptoms develop. Most research is demonstrating around 10 days. She is waiting for her own Covid test. If it comes back positive then there is no issue with him being able to go home however if her test comes back negative she may be uncomfortable to take him back and therefore will need to find placement potentially. 2. HTN/HLD/history of TIA with carotid narrowing -Continue with blood pressure management. Blood pressures currently stable -Continue with statins -Continue with aspirin 3. Anxiety/depression -Stable -Continue with Escitalopram 4. GERD -Stable -Continue with PPI DVT: Lovenox Inpatient E&M: 00999 Subs Hosp L2
[2020-03-22] MEDS: Acetaminophen 325 MG Tablet 650 MG PO (12:29)
[2020-03-22] MEDS: Aspirin 81 MG TAB.CHEW PO (21:56)
[2020-03-22] MEDS: Atorvastatin Calcium 40 MG Tablet PO (21:56)
[2020-03-22] MEDS: MELATONIN 10 MG TABLET PO (21:56)
[2020-03-23] VITALS (9 sets, daily range): BP systolic 145–167; BP diastolic 67–81; PULSE 61–98; RESP 16–18; TEMP 35.8–36.2; O2SAT 91–96
[2020-03-23 06:23] LABS: Absolute Lymphocyte Count 1.45 X10^3/uL (0.83-4.51); Absolute Neutrophil Count 9.6 X10^3/uL (2.0-7.7); Basophil# 0.01 X10^3/uL; Basophil% 0.1 % (0-1); Hematocrit 39.5 % (40-54); Hemoglobin 13.2 g/dL (13.0-16.5); Lymphocyte # 1.45 X10^3/ul (4.0); Lymphocyte % 11.8 % (19-41); Mean Corp Hgb Conc 33.4 g/dL (32-36); Mean Corpuscular Hgb 31.1 pg (27.0-32.0); Mean Corpuscular Volume 92.9 fL (80-94); Mean Platelet Vol. 8.9 fl (6.2-12.0); Monocyte# 1.15 X10^3/uL; Monocyte% 9.3 % (0-10); NRBC Flagged by Analyzer 0 % (0-5); Neutrophil # 9.56 X10^3/uL (2.7-7.7); Neutrophil % 77.5 % (47-70); Platelet Count 284 K/mm3 (150-450); RBC Distribution Width CV 13.8 % (11.6-14.6); RBC Distribution Width SD 47.1 fl (35.1-43.9); Red Blood Count 4.25 M/mm3 (4.6-6.2); White Blood Count 12.3 K/mm3 (4.4-11.0)
[2020-03-23 06:56] LABS: ALB/GLOB Ratio 0.9 RATIO (0.9-2.4); AST(SGOT) 24 U/L (15-37); Alanine Aminotransfer ALT/SGPT 37 U/L (16-61); Albumin, Serum 2.6 g/dL (3.2-5.0); Alkaline Phosphatase 73 U/L (45-117); Anion Gap 3 (5-15); BUN 29 mg/dL (7-18); Calcium,Total 9.2 mg/dL (8.5-10.1); Chloride 101 mmol/L (98-107); Glucose 98 mg/dL (74-106); Potassium 4.6 mmol/L (3.5-5.1); Protein, Total 5.6 g/dL (6.4-8.2); Sodium Level 136 mmol/L (136-145)
--- NOTE | 2020-03-23 09:43 | NURSING ---
female phoned in, states she is pt spouse Lea. Lea states she was tested last Monday for COVID and received the results last evening which she states are negative. Lea states there is some confusion about pt going home with her testing negative. states she is concerned that is is safe for her to have him at home and safe for the pt to be at home as well. Lea states the house is set up for him at home, he has a lift chair and everything already at home, we had it from when he broke his leg a couple years ago. informed Lea can update her on POC when MD rounds. Lea states she is agreeable to that.
--- NOTE | 2020-03-23 09:52 | NURSING ---
speaker into Steven's room- Steven updated that his spouse Lea phoned in and has been updated.
[2020-03-23] MEDS: dexAMETHasone 4 MG Tablet 6 MG PO (09:55)
[2020-03-23] MEDS: Lisinopril 10 MG Tablet PO (09:55)
[2020-03-23] MEDS: Metoprolol(XL)Succ 25 MG Tablet PO (09:56)
[2020-03-23] MEDS: Escitalopram Oxalate 10 MG Tablet 5 MG PO (09:56)
[2020-03-23] MEDS: Senna Tablet 1 TABLET PO ×3 (09:57→17:45)
[2020-03-23] MEDS: Enoxaparin 30 MG/0.3 ML Syringe SC (09:57)
[2020-03-23] MEDS: 0.9% Saline Lock 10 ML Syringe IV ×2 (10:04→10:32)
[2020-03-23] MEDS: Acetaminophen 325 MG Tablet 650 MG PO (10:35)
--- NOTE | 2020-03-23 12:16 | NURSING ---
spouse Lea phoned up, states he just told me he is being discharged now. updated that Hospitalist was in to see pt however Dr. Prasad still needs to see pt and will ask clarification regarding spouse concern of pt being infectious or not. Lea states understanding and states she will wait to her from nursing on specifics of discharge.
--- NOTE | 2020-03-23 13:30 | DCINST_ITS ---
- Discharge Diagnoses Current Active Problems: Current Active and Chronic Problems (Last Updated 03/13/20 @ 08:18 by Sis Patel) Pneumonia due to COVID-19 virus (Acute) Hypoxia (Acute) Vomiting (Acute) Diarrhea (Acute) Reason(s) for Visit for Discharge Instructions: Acute COVID-19 infection You will use the following diet at home:: Regular Your food should be the consistency of: Regular Your liquids should be the consistency of: Regular/Thin Discharge Activity: Return to Normal Activity Additional Instructions: Continue to use your incentive spirometer all the time. Complete the oral steroid. Continue to remain active. Allergies/Adverse Reactions: Allergies Penicillins Allergy (Verified 03/18/20 14:54) Hives Medications to take at Discharge Aspirin [Aspirin, Baby] 81 mg PO QHS 04/10/17 escitalopram oxalate 5 mg tablet 5 mg PO DAILY 10/11/17 lansoprazole 30 mg capsule,delayed release 30 mg PO DAILY PRN PRN cap 10/11/17 nitroglycerin 0.4 mg sublingual tablet 0.4 mg SUBLINGUAL Q5-15M PRN #25 tab 10/03/19 atorvastatin 40 mg tablet 40 mg PO QHS #90 tab 12/04/19 metoprolol succinate 25 mg tablet,extended release 24 hr 25 mg PO DAILY #90 tab 12/04/19 Docusate Sodium [Colace] 100 mg PO BID 03/18/20 Lisinopril [Prinivil] 10 mg PO DAILY 03/18/20 Acetaminophen [Tylenol Tablet] 650 mg PO Q4H PRN PRN tab 03/23/20 Dexamethasone [Decadron] 6 mg PO DAILY 5 Days #5 tab 03/23/20 The following prescriptions were given: Dexamethasone [Decadron] 6 mg PO DAILY 5 Days #5 tab Transmission Status: Received by KATIA DE LA [facility] [facility] Primary Care Physician: Carlitos King MD [Primary Care Provider] - Please follow up with your Primary Care Physician in: within 1-2 weeks Test Results: Test results from this visit will be discussed in further detail at your follow- up appointment, if applicable. Proposed Discharge Date: 03/23/20
--- NOTE | 2020-03-23 16:18 | DS.PCM_ITS ---
Discharge Date and Diagnosis - Problem List Patient Problems: Active and Suspected Problems (Last Updated 03/13/20 @ 08:18 by Sis Patel) Pneumonia due to COVID-19 virus (Acute) Hypoxia (Acute) Vomiting (Acute) Diarrhea (Acute) Date of Admission: 03/18/20 Date of Discharge: 03/23/20 - Primary Discharge Diagnosis Acute Problems: Active Problems (Last Updated 03/13/20 @ 08:18 by Sis Patel) Acute hypoxic respiratory insufficiency Acute COVID-19 pneumonia Acute gastroenteritis - Secondary Discharge Diagnosis Chronic Problems: Chronic Problems (Last Updated 03/13/20 @ 08:18 by Sis Patel) Left carotid artery stenosis (Chronic) COPD (chronic obstructive pulmonary disease) (Chronic) 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 Interval appearance of mild pneumonic consolidation of the right lower lobe. 2. Chronic left lower lobe fibrotic appearing consolidation with a small pleural effusion unchanged from the prior study. The remaining lung chatman are clear. Electronically Signed: Colton Velázquez MD at 16:52 EST , Service support , ID Operations: None Procedures: None Summary of Care Provided: The patient is a 84 year old M with multiple comorbidities who comes in with nausea vomiting diarrhea that has been persistent for 1 to 2 weeks. Along with this was also sore throat and headache, cough and generalized weakness. He came when he fell out of bed but denied hitting his head or passing out. His work-up showed acute COVID-19. Chest x-ray showed mild pneumonic consolidation of the right lower lung. He was admitted to the [facility] floor on 2 L of oxygen. He was started on IV Decadron. Infectious disease was consulted. Patient completed with remdesivir during this hospital stay. He continued to improve and was off oxygen at the time of discharge. He was ambulated and did not qualify for oxygen. She was discharged to complete a 10- day course of dexamethasone. Patient Problems: Active and Suspected Problems (Last Updated 03/13/20 @ 08:18 by Sis Patel) Pneumonia due to COVID-19 virus (Acute) Hypoxia (Acute) Vomiting (Acute) Diarrhea (Acute) Subjective: On the day of discharge, patient was seen and examined. Patient denied any complaint. He was ambulated in his room and did not call for oxygen. Objective: Physical exam: General: Alert, Oriented x3, Cooperative, No apparent distress HEENT: Atraumatic, PERRLA, EOMI, Normocephalic Oral: Moist Mucosa Neck: Supple, No JVD Lungs: Normal air movement, No rhonchi, No wheeze, No rales, Diminished Cardiovascular: Regular rate, Regular Rhythm, Normal S1, Normal S2, No murmurs Abdomen: Soft, Non Tender, Non-Distended, No Hepato-splenomegaly Extremities: Capillary Refill Less than 3 Seconds, Edema - Trace pitting edema bilaterally Skin: No rashes, No breakdown Neurological: Neuro grossly intact, Sensory exam intact to light touch and pain Psych/Mental Status: Flat Affect - Physical Exam Vitals/I&O's: Vital Signs Temp Pulse Resp BP Pulse Ox 97.1 F L 98 16 145/68 H 96 03/23/20 15:10 03/23/20 15:10 03/23/20 15:10 03/23/20 15:10 03/23/20 15:11 Oxygen Flow Rate (L/min) 90 Oxygen Delivery Method Room Air Weight: 95.254 kg Body Mass Index (BMI) 28.5 Finger Stick Blood Glucose 146 Intake and Output for Last 24 Hours 03/21/20 03/22/20 03/23/20 23:59 23:59 23:59 Intake Total 1210 / 1210 2049 850 / 850 Output Total 850 / 1250 2049 550 / 550 Balance 360 / -40 0 / 0 300 / 300 Microbiology Past 72 Hours 03/18/20 15:25 Blood Culture (Wb) - Anticubital Left Blood Culture - Preliminary No growth in 48 hours. 03/18/20 15:20 Blood Culture (Wb) - Right Wrist Blood Culture - Preliminary No growth in 48 hours. Laboratory Results 03/23/20 06:16: WBC 12.3 H, RBC 4.25 L, Hgb 13.2, Hct 39.5 L, MCV 92.9, MCH 31.1, MCHC 33.4, RDW Std Deviation 47.1 H, RDW Coeff of Josh 13.8, Plt Count 284, MPV 8.9, Immature Gran % (Auto) 1.300 H, Neut % (Auto) 77.5 H, Lymph % (Auto) 11.8 L, Dyer % (Auto) 9.3, Eos % (Auto) 0.0, Baso % (Auto) 0.1, Absolute Neuts (auto) 9.6 H, Absolute Lymphs (auto) 1.45, Nucleated RBC % 0 03/23/20 06:16: Sodium 136, Potassium 4.6, Chloride 101, Carbon Dioxide 32.0, Anion Gap 3 L, BUN 29 H, Creatinine 0.89, Estim Creat Clear Calc 70.24, Est GFR (MDRD) Af Amer 106, Est GFR (MDRD) Non-Af 87, BUN/Creatinine Ratio 32.7 H, Glucose 98, Calcium 9.2, Total Bilirubin 0.70, AST 24, ALT 37, Alkaline Phosphatase 73, Total Protein 5.6 L, Albumin 2.6 L, Globulin 3.0, Albumin/Globulin Ratio 0.9 Current Medications Acetaminophen (Acetaminophen 325 Mg Tablet) 650 mg PO Q4H PRN PRN PRN Reason: Pain Score 1-10/Temp > 100.7 F Last Admin: 03/23/20 10:35 Dose: 650 mg Documented by: Al Hydroxide/Mg Hydroxide (Mag Hydrox/Al Hydrox/Simeth 30 Ml Udc) 30 ml PO Q6H PRN PRN PRN Reason: Gastric Burning Aspirin (Aspirin 81 Mg Tab.Chew) 81 mg PO QHS [facility] Last Admin: 03/22/20 21:56 Dose: 81 mg Documented by: Atorvastatin Calcium (Atorvastatin Calcium 40 Mg Tablet) 40 mg PO QHS [facility] Last Admin: 03/22/20 21:56 Dose: 40 mg Documented by: Dexamethasone (Dexamethasone 4 Mg Tablet) 6 mg PO DAILY [facility] Stop: 03/28/20 10:01 Last Admin: 03/23/20 09:55 Dose: 6 mg Documented by: Docusate Sodium (Docusate Sodium 100 Mg Capsule) 100 mg PO BID PRN PRN PRN Reason: Constipation Last Admin: 03/21/20 13:15 Dose: 100 mg Documented by: Enoxaparin Sodium (Enoxaparin 30 Mg/0.3 Ml Syringe) 30 mg SC BID [facility] Last Admin: 03/23/20 09:57 Dose: 30 mg Documented by: Escitalopram Oxalate (Escitalopram Oxalate 10 Mg Tablet) 5 mg PO DAILY [facility] Last Admin: 03/23/20 09:56 Dose: 5 mg Documented by: Lisinopril (Lisinopril 10 Mg Tablet) 10 mg PO DAILY [facility] Last Admin: 03/23/20 09:55 Dose: 10 mg Documented by: Melatonin (Melatonin 10 Mg Tablet) 10 mg PO QHS [facility] Last Admin: 03/22/20 21:56 Dose: 10 mg Documented by: Metoprolol Succinate (Metoprolol(Xl)Succ 25 Mg Tablet) 25 mg PO DAILY [facility] Last Admin: 03/23/20 09:56 Dose: 25 mg Documented by: Morphine Sulfate (Morphine 2 Mg/Ml Syringe) 2 - 4 mg IV Q3H PRN PRN PRN Reason: Pain Score 6-10 Morphine Sulfate (Morphine 2 Mg/Ml Syringe) 1 - 2 mg IV Q4H PRN PRN PRN Reason: Pain Score 4-5 Nitroglycerin (Nitroglycerin (Inpatient Use) 0.4 Mg Tab.Subl) 0.4 mg SUBLINGUAL Q5M PRN PRN Reason: CARDIAC/CHEST PAIN Ondansetron HCl (Ondansetron 4 Mg/2 Ml Vial) 4 mg IV Q8H PRN PRN PRN Reason: NAUSEA/VOMITING Oxycodone HCl (Oxycodone 5 Mg Tablet) 5 mg PO Q4H PRN PRN PRN Reason: Pain Score 4-5 Last Admin: 03/19/20 02:50 Dose: 5 mg Documented by: Pantoprazole Sodium (Pantoprazole Sodium 40 Mg Tablet) 40 mg PO DAILY PRN PRN PRN Reason: acid reflux Prochlorperazine Edisylate (Prochlorperazine 10 Mg/2 Ml Vial) 10 mg IV Q6H PRN PRN PRN Reason: Nausea/Vomiting Senna (Senna Tablet) 1 tablet PO TIDCM BRITTNEY Last Admin: 03/23/20 15:08 Dose: 1 tablet Documented by: Sodium Chloride (0.9% Saline Lock 10 Ml Syringe) 10 - 40 ml IV UD PRN PRN Reason: SALINE FLUSH Last Admin: 03/23/20 10:32 Dose: 10 ml Documented by: Discharge Diet: Low fat/ Low Cholesterol, 2000 mg Sodium Diet Discharge Activity: Return to Normal Activity Home Medications: Medications to take at Discharge Aspirin [Aspirin, Baby] 81 mg PO QHS 04/10/17 escitalopram oxalate 5 mg tablet 5 mg PO DAILY 10/11/17 lansoprazole 30 mg capsule,delayed release 30 mg PO DAILY PRN PRN cap 10/11/17 nitroglycerin 0.4 mg sublingual tablet 0.4 mg SUBLINGUAL Q5-15M PRN #25 tab 10/03/19 atorvastatin 40 mg tablet 40 mg PO QHS #90 tab 12/04/19 metoprolol succinate 25 mg tablet,extended release 24 hr 25 mg PO DAILY #90 tab 12/04/19 Docusate Sodium [Colace] 100 mg PO BID 03/18/20 Lisinopril [Prinivil] 10 mg PO DAILY 03/18/20 Acetaminophen [Tylenol Tablet] 650 mg PO Q4H PRN PRN tab 03/23/20 Dexamethasone [Decadron] 6 mg PO DAILY 5 Days #5 tab 03/23/20 Following Prescriptions Were Given to Patient: Dexamethasone [Decadron] 6 mg PO DAILY 5 Days #5 tab Transmission Status: Received by KAT[facility] DE [facility]1952 [facility] Primary Care Physician: Carlitos King MD [Primary Care Provider] - Please follow up with your Primary Care Physician in: within 1-2 weeks Disposition: Home Minutes spent on discharge:: 45 Patient Condition:: Stable Medical Necessity - Tobacco Use Smoking Status: Former smoker Tobacco Use: Non-smoker Meaningful Use Info Meaningful Use Diagnoses (Choose all that apply): None applicable Inpatient E&M: 57642 Disch Hosp
--- NOTE | 2020-03-23 16:45 | CASEMGMT ---
Social Work SW spoke with Dr. Prasad who states pt should remain in quarentine for three weeks from onset of symptoms. Pt was seen by PT/OT who state pt was able to ambulate 200 ft with a cane, toilet and complete ADLs at independent level. No concerns from therapy with pt returning home and caring for himself. Dr. Serrano feels pt is ready for discharge on this date. Phone call placed to pt Lea to discuss discharge plan and information from physicians and therapists relayed. Lea is very upset at this time that pt will be discharged. Lea concerned that she does not have covid and that pt does have covid and he will infect her at home. SW provided active listening and assurance to Lea as she was very anxious and concerned about covid. SW assisted Lea in problem solving current situation. SW discussed half-way placement and explained pt ability to care for himself and likelihood that pt would not get precert to go to SNF. Pt stating, a half-way is not the best place for him but continued to state she does not want him to return home. SW reviewed covid precautions in the home and inquired if they could remain in separate areas of the house. Lea states she can stay in the basement and pt would stay in the living room and upstairs bathroom. Lea's biggest concern is that there is not a wall between he kitchen and living room and pt would infect her while she is making food. SW reviewed with Lea droplet precautions and recommended pt stay in living room while she is in Kitchen and they both wear masks, wipe down common areas and stay at least 6 feet apart. SW explored staying somewhere else until Covid quarentine is over for pt but refused stating she needed to cook for pt. After extensive conversation pt did calm down and states she will come pick pt up today and that he can return home. Nursing notified and requested to review discharge paper work with . SW encouraged to arrange home for separate living spaces prior to coming to pick pt up. Nursing and physician notified of discharge plan. COLLINS Medrano
[2020-03-23 17:08] LABS: BUN/Creat Ratio 8.9 RATIO (10-20); Creatinine, Serum 3.25 mg/dL (0.70-1.30); EST Glomerular Filtration Rate 20 mL/min (>60); Est Glom Filt Rate - Afr Amer 24 mL/min (>60); Estimated Creatinine Clearance 19.23 ml/min
--- NOTE | 2020-03-24 13:59 | CASEMGMT ---
JESSENIA MORALES DC PHONE CALL DC DATE: 03/23/2020 DC DISPOSITION: Home DC DIAGNOSIS: COVID-19 LACE/STRATA: 13/3 F/U APPTS MADE PRIOR TO DC: NO PRESCRIPTIONS ACQUIRED BY PT: yes Intro role of CM to patient's . states pt is feeling improved, slept well last night and no difficulties or new symptoms. PCP office has called pt and they will have a telehealth visit tomorrow. No questions re: medications or instructions. Patient is able to quarantine at home. Jessenia BISHOP RN ACM
== END 2020-03-23 18:15 | disposition home or self-care (01) | DRG 177 ==
LOC: ED 17:19 → MS2 17:38
PROVIDERS: Family Medicine; Admitting Provider Student in an Organized Health Care Education/Training Program; Emergency Provider Emergency Medicine; PCP Family Medicine; Visit Provider Internal Medicine
DX: U07.1 COVID-19 (principal); J12.89 Other viral pneumonia; J44.0 Chronic obstructive pulmonary disease with (acute) lower respiratory infection; R09.02 Hypoxemia; I25.10 Atherosclerotic heart disease of native coronary artery without angina pectoris; E78.5 Hyperlipidemia, unspecified; K21.9 Gastro-esophageal reflux disease without esophagitis; F32.9 Major depressive disorder, single episode, unspecified; Z95.1 Presence of aortocoronary bypass graft; Z87.891 Personal history of nicotine dependence; I10 Essential (primary) hypertension; A08.4 Viral intestinal infection, unspecified; F41.9 Anxiety disorder, unspecified
CPT/HCPCS: 36415; 71045; 80053; 81001; 83605; 83615; 83880; 84145; 85025; 85379; 85384; 85610; 86900; 86901; 87040; 87086; 87088; 87449; 87635; 97116; 97161; 97166; 97530; 97535; 99285; J7030; J7050; A4216; U0002

== ENCOUNTER → 2020-04-08 16:19 | Outpatient (CLI) | payer MEDICARE, SELFPAY ==
[2020-03-18 18:40] VITALS: BMI 28.5
[2020-04-08 17:52] LABS: Absolute Lymphocyte Count 1.66 X10^3/uL (0.83-4.51); Absolute Neutrophil Count 5.2 X10^3/uL (2.0-7.7); Basophil# 0.03 X10^3/uL; Basophil% 0.4 % (0-1); Eosinophil# 0.19 X10^3/uL; Eosinophils% 2.2 % (0-5); Hemoglobin 13.8 g/dL (13.0-16.5); Lymphocyte # 1.66 X10^3/ul (4.0); Lymphocyte % 19.5 % (19-41); Mean Corp Hgb Conc 32.9 g/dL (32-36); Mean Corpuscular Hgb 31.4 pg (27.0-32.0); Mean Corpuscular Volume 95.5 fL (80-94); Mean Platelet Vol. 8.9 fl (6.2-12.0); Monocyte# 1.39 X10^3/uL; Monocyte% 16.3 % (0-10); NRBC Flagged by Analyzer 0 % (0-5); Neutrophil # 5.21 X10^3/uL (2.7-7.7); Neutrophil % 61.2 % (47-70); Platelet Count 200 K/mm3 (150-450); RBC Distribution Width CV 14.5 % (11.6-14.6); RBC Distribution Width SD 50.8 fl (35.1-43.9); White Blood Count 8.5 K/mm3 (4.4-11.0)
[2020-04-08 18:09] LABS: ALB/GLOB Ratio 0.7 RATIO (0.9-2.4); AST(SGOT) 21 U/L (15-37); Alanine Aminotransfer ALT/SGPT 22 U/L (16-61); Albumin, Serum 2.9 g/dL (3.2-5.0); Alkaline Phosphatase 87 U/L (45-117); Anion Gap 4 (5-15); BUN 13 mg/dL (7-18); BUN/Creat Ratio 11.7 RATIO (10-20); Calcium,Total 9.7 mg/dL (8.5-10.1); Chloride 100 mmol/L (98-107); Creatinine, Serum 1.11 mg/dL (0.70-1.30); EST Glomerular Filtration Rate 67 mL/min (>60); Est Glom Filt Rate - Afr Amer 82 mL/min (>60); Globulin 4.2 g/dL (2.2-4.2); Glucose 96 mg/dL (74-106); Potassium 4.4 mmol/L (3.5-5.1); Protein, Total 7.1 g/dL (6.4-8.2); Sodium Level 132 mmol/L (136-145)
== END ==
PROVIDERS: PCP Family Medicine; Referring Provider Family Medicine; Visit Provider Family Medicine
DX: N28.9 Disorder of kidney and ureter, unspecified (principal); N39.0 Urinary tract infection, site not specified; N25.9 Disorder resulting from impaired renal tubular function, unspecified
CPT/HCPCS: 36415; 80053; 85025; 87086; 87088

== ENCOUNTER 2020-05-21 16:19 | Outpatient (RCR) | payer MEDICARE, SELFPAY ==
[2020-03-18 18:40] VITALS: BMI 28.5
[2020-05-20 14:16] VITALS: BMI 28.6
== END 2020-05-21 23:59 ==
LOC: IMMUN 16:19
PROVIDERS: PCP Family Medicine; Visit Provider Family Medicine
DX: Z23 Encounter for immunization (principal)
CPT/HCPCS: 0011A; 0012A; 91301

== ENCOUNTER → 2020-08-17 15:15 | Outpatient (CLI) | payer MEDICARE, SELFPAY ==
[2020-05-20 14:16] VITALS: BMI 28.6
--- NOTE | 2020-08-17 | LES_PTH ---
PATIENT: RANCHO MULLER LOC: [facility] U#:[id number] AGE/SX: 89/M ROOM: RE08/17/[address]: Dr. Ryan Buckley MD : [id number] BED: DIS: SPEC #: [id number] RECD: 08/17/20 14:59 STATUS: JERRY TMAMY #: [id number] LANA: 08/17/20 00:[address]: Ryan Buckley DEPT: SURGICAL PATHOLOGY RECD BY: Raheem Baker ENTERED: 08/18/20 07:28 SP TYPE: Lesion OTHR DR: Dr. Carlitos King MD Tissues: Skin of eyelid, NOS Procedures: Surgery Specimen Level III HEADER OPERATION: Lesion removal left lower lid PRE-OP DIAGNOSIS: Lesion left lower lid TISSUE SUBMITTED: Lesion left lower lid MICROSCOPIC DIAGNOSIS Lesion of left lower eyelid, biopsy: Epidermal inclusion cyst. AM:harmony 08/19/2020 MICROSCOPIC DESCRIPTION Slides are reviewed. GROSS DESCRIPTION Received in fixative is one container labeled with the patient's name and designated left lower lid. The specimen consists of a piece of gil[place]-brown skin measuring 0.4 x 0.3 x 0.2 cm. The specimen is inked and submitted entirely in one cassette. / MARIAA:harmony 08/18/20 TC:5 CPT: 83188
== END ==
PROVIDERS: PCP Family Medicine; Referring Provider Ophthalmology; Visit Provider Ophthalmology
DX: L98.8 Other specified disorders of the skin and subcutaneous tissue (principal)
CPT/HCPCS: 88304; 88305

== ENCOUNTER → 2020-11-13 07:10 | Outpatient (CLI) | payer MEDICARE, SELFPAY ==
[2020-05-20 14:16] VITALS: BMI 28.6
[2020-11-13 10:38] LABS: AST(SGOT) 20 U/L (15-37); Alanine Aminotransfer ALT/SGPT 20 U/L (16-61); Albumin, Serum 3.4 g/dL (3.2-5.0); Alkaline Phosphatase 87 U/L (45-117); Bilirubin, Direct 0.15 mg/dL (0.00-0.30); Cholesterol 150 mg/dL (200); Globulin 3.7 g/dL (2.2-4.2); High Density Lipoprotein 48 mg/dL; Protein, Total 7.1 g/dL (6.4-8.2); Triglycerides 122 mg/dL; Very Low Density Lipoprotein 24 mg/dL (5-40)
== END ==
PROVIDERS: PCP Family Medicine; Referring Provider Internal Medicine Cardiovascular Disease; Visit Provider Internal Medicine Cardiovascular Disease
DX: E78.00 Pure hypercholesterolemia, unspecified (principal)
CPT/HCPCS: 36415; 80061; 80076

== ENCOUNTER → 2020-12-15 09:41 | Outpatient (CLI) | payer MEDICARE, SELFPAY ==
[2020-11-26 14:28] VITALS: BMI 29.9
--- NOTE | 2020-12-15 09:43 | ECHOCS_ITS ---
Reason For Study: Dilated AO Procedure This was a 2D Doppler, Color Flow transthoracic echocardiogram. The study was technically difficult. Patient would not stay on left side due to shoulder pain and discomfort. Contrast injection performed. Contrast injection was performed. Exam performed in department. Left Ventricle Based upon the 2D echocardiographic and contrast enhanced images obtained appears to be grossly normal left ventricular size, wall motion, and systolic function. The estimated ejection fraction is 60 %. No evidence for diastolic dysfunction. Right Ventricle Normal RV size. Normal systolic function. Atria Normal left atrium. Normal right atrium. No doppler evidence for ASD. Mitral Valve There is no mitral annular calcification. Normal mitral valve. Trivial mitral valve insufficiency. Tricuspid Valve Normal tricuspid valve. Mild tricuspid valve insufficiency. Right ventricular systolic pressure estimated to be 23 mmHg. Aortic Valve Trisinus/trileaflet aortic valve. Normal aortic valve. Trivial aortic valve insufficiency. Pulmonic Valve The pulmonic valve is not well visualized. Great Vessels Mildly dilated aortic root. Pericardium/Pleural No pericardial effusion. Medication 22 gauge I.V. with prn adaptor inserted into right arm. Diluted definity 3ml given slow IV push to enhance endocardial definition. MMode/2D Measurements & Calculations LVIDd: 4.5 cm IVSd: 1.2 cm Ao root diam: 4.2 cm LVIDs: 2.8 cm LVPWd: 1.3 cm LA dimension: 4.0 cm FS: 38.0 % Time Measurements MV dec time: 0.24 sec Doppler Measurements & Calculations MV E max mani: 63.3 cm/sec Lat Peak E' Mani: 7.9 cm/sec Med Peak E' Mani: 5.6 cm/sec MV A max mani: 73.7 cm/sec E/E' lat: 8.0 E/E' med: 11.4 MV E/A: 0.86 MV V2 max: 82.2 cm/sec MV P1/2t max mani: 73.8 cm/sec PA V2 max: 49.8 cm/sec MV max P.7 mmHg MV P1/2t: 61.6 msec MV V2 mean: 40.4 cm/sec MV mean P.81 mmHg MV dec slope: 351.3 cm/sec2 MV V2 VTI: 24.0 cm MVA(P1/2t): 3.6 cm2 TR max mani: 225.7 cm/sec TR max P.4 mmHg ECHO/Echo Complete W/ Contrast Interpretation Summary The study was technically difficult. Contrast injection was performed. Based upon the 2D echocardiographic and contrast enhanced images obtained appea rs to be grossly normal left ventricular size, wall motion, and systolic function. The estimated ejection fraction is 60 %. Trivial mitral valve insufficiency. Mild tricuspid valve insufficiency. Trivial aortic valve insufficiency. Mildly dilated aortic root. Right ventricular systolic pressure estimated to be 23 mmHg. No evidence for diastolic dysfunction. Ordering Physician: Garth Troy Referring Physician: Carlitos King Performed By: Danie Villasenor RCS
== END ==
PROVIDERS: PCP Family Medicine; Referring Provider Internal Medicine Cardiovascular Disease; Visit Provider Internal Medicine Cardiovascular Disease
DX: I25.10 Atherosclerotic heart disease of native coronary artery without angina pectoris (principal)
CPT/HCPCS: 93306; Q9957; A4216; C8929; J3490

== ENCOUNTER 2021-03-22 14:35 | Inpatient (IN) | payer MEDICARE, SELFPAY ==
[2021-03-22 14:36] VITALS: RESP 16
[2021-03-22 14:40] VITALS: BP 191/86; PULSE 77; RESP 16; TEMP 36.4; O2SAT 96; BMI 30.6
--- NOTE | 2021-03-22 15:12 | RAD_ITS ---
STUDY: X-RAY - PELVIS AND LEFT HIP REASON FOR EXAM: Male, 85 years old. Fall. Pain. TECHNIQUE: 4 views of the pelvis and hip. COMPARISON: Right femur, 04/10/2017. FINDINGS: There is a non-specific bowel gas pattern. Normal visualized soft tissue structures. There are degenerative changes of the lower lumbar spine. Normal bilateral iliac wings, sacroiliac joints and visualized sacrum. Normal bilateral superior and inferior pubic rami. Normal pubic symphysis. Normal bilateral ischial tuberosities. There is evidence of internal fixation and healing of the right femoral fracture when compared to the prior study. There is a nondisplaced intratrochanteric fracture of the left femur. Normal acetabulum. There is moderate articular joint space narrowing of the hip. RAD/HIP, UNI W/ Pelvis 2-3 Views IMPRESSION: 1. Nondisplaced intertrochanteric fracture of the left femur. 2. Evidence of internal fixation healing of the right femoral fracture noted on the earlier study. 3. Degenerative changes of the lumbar spine. Electronically Signed: Conrad Tony DO at 16:36 EST Tel [phone], Service support ,
--- NOTE | 2021-03-22 15:17 | ED.VIS.LOWEX ---
HPI History of Present Illness HPI Narrative: Patient is with left hip injury that began today. Patient states he fell while he was blowing leaves off of his driveway. Patient denies any loss of consciousness. Patient denies any head injury. Patient states he was unable to get up after he fell. Patient states his pain is over his left hip. Patient states it is worse with any movement. Patient states it is better with rest. Patient denies any paresthesias or weakness. Patient describes his pain as sharp. Chief Complaint: Lower Extremity Injury Informant: patient Occured/Mechanism Mechanism/Context: Yes fall Onset/Context/Timing Onset: Today Context: Sudden Onset Timing: Continuous Quality of Pain: Sharp Location: Left hip Worsened by: Movement Relieved by: Rest Associated Symptoms Associated Symptoms: Negative for Parasthesia, Weakness and Loss of Funtion PFSH [facility] Medical History Aortic root dilatation Atherosclerosis of [place] arteries of extremity with intermittent claudication Atherosclerotic heart disease of [place] coronary artery without angina pectoris Benign essential HTN Bilateral carotid artery stenosis Carotid bruit COPD (chronic obstructive pulmonary disease) Depression Fall GERD (gastroesophageal reflux disease) Hip fracture Hyperlipidemia Insomnia Left carotid artery stenosis RBBB Right femoral fracture TIA (transient ischemic attack) Home Medications aspirin 81 mg PO QHS 04/10/17 [History Last Taken 03/21/21] escitalopram oxalate 5 mg tablet 5 mg PO DAILY 10/11/17 [History Last Taken 03/22/21] lansoprazole 30 mg capsule,delayed release 30 mg PO DAILY PRN PRN cap 10/11/17 [History Last Taken Unknown] docusate sodium 100 mg PO BID 03/18/20 [History Last Taken 03/22/21] multivitamin 1 tab PO DAILY 05/20/20 [History Last Taken 03/22/21] nitroglycerin 0.4 mg sublingual tablet 0.4 mg SUBLINGUAL Q5-15M PRN #25 tab 11/26/20 [Rx Last Taken Unknown] atorvastatin 40 mg tablet 40 mg PO QHS #90 tab 12/07/20 [Rx Last Taken 03/21/21] metoprolol succinate 25 mg tablet,extended release 24 hr 25 mg PO DAILY #90 tab 12/07/20 [Rx Last Taken 03/22/21] diphenhydramine-acetaminophen [Acetaminophen PM] 1 - 2 tab PO QHS PRN 03/22/21 [History Last Taken 03/21/21] vitamin B complex [B Complex] 1 cap PO DAILY 03/22/21 [History Last Taken 03/22/21] Allergy/AdvReac Type Severity Reaction Status Date / Time Penicillins Allergy Hives Verified 03/22/21 14:40 Family History Father Myocardial infarction, Onset Age: 68 Brother CAD (coronary artery disease) Myocardial infarction Hx of CABG Brother CHF (congestive heart failure) Surgical History Aortocoronary bypass status (~07/07/00) History of left-sided carotid endarterectomy (~07/22/20) History of right-sided carotid endarterectomy (~09/30/20) Hx of appendectomy Social History Smoking Status: Former smoker alcohol intake: never ROS ROS ED Constitutional Constitutional ED: Denies chills or fever(s) Eyes Eyes: Denies blurry vision or change in vision ENT ENT ED: Denies rhinorrhea or sore throat Cardiovascular Cardiovascular: Denies chest pain or palpitations Respiratory/Chest Respiratory/Chest: Denies cough or dyspnea Gastrointestinal Gastrointestinal: Denies nausea or vomiting Genitourinary Genitourinary ED: Denies dysuria or hematuria Musculoskeletal Musculoskeletal: Denies back pain or neck pain Integumentary Denies abscess or rash Neurologic Neurologic: Denies headache(s) or weakness Allergic/Immunologic Allergic/Immunologic ED: Denies mouth swelling or urticaria EXAM Physical Exam Const Vital Signs: 03/22/21 14:36 03/22/21 14:40 03/22/21 16:42 Temperature 97.5 F L Temperature Source Oral Pulse Rate 77 Respiratory Rate 16 16 16 Blood Pressure 191/86 H Blood Pressure Mean 121 Pulse Ox 96 Oxygen Delivery Method Room Air Positive well nourished and well developed General Appearance ED: well developed HEENT Reports moist mucous membranes Resp normal respiratory effort and clear to auscultation bilaterally Cardio regular rate and regular rhythm GI non-tender Palpation: soft Extremity Extremity Narrative: There is tenderness over the left hip. There is some external rotation of the left lower extremity. There is minimal shortening. Range of motion was limited in internal and external rotation of the left lower extremity secondary to pain. Sensation was intact to light touch in all digits. Capillary refill was less than 2 seconds in all digits. Pedal pulses are equal bilaterally. Neuro oriented x3, CN's II-XII intact bilaterally, moves all extremities and no sensory deficits noted Sensorium / Orientation: alert Motor Exam: strength 5/5 throughout Psych mental status grossly normal MDM MDM MDM Narrative Medical decision making narrative: Patient was given a dose of morphine here. X-rays of the left hip were obtained. There are 4 views. On my interpretation, there is a nondisplaced intertrochanteric fracture of the left proximal femur. There is no angulation. Radiologist also interpreted the x-ray and agrees. Portable 1 view chest x-ray was obtained. On my interpretation, lung chatman are clear. There is normal cardiac silhouette. Bony thorax is normal. There is no acute process noted. Radiologist also interpreted the x-ray and agrees. CBC was within normal limits. PT with INR and PTT were normal. Comprehensive metabolic profile was essentially within normal limits. Findings were discussed with the patient and his spouse. They requested a different orthopedic surgeon other than Dr. Vidal. Case was discussed with Dr. Verdin. He agreed to consult and will plan on fixing the fracture tomorrow. Case was discussed with the hospitalist. He will admit the patient. Patient and family understood and were agreeable with the plan. All questions were answered. Lab Data Labs: Laboratory Results - last 24 hr 03/22/21 03/22/21 03/22/21 15:33 15:33 15:33 WBC 10.9 RBC 4.49 L Hgb 14.5 Hct 40.8 MCV 90.9 MCH 32.3 H MCHC 35.5 RDW Std Deviation 44.7 H RDW Coeff of Josh 13.5 Plt Count 187 MPV 9.1 Immature Gran % (Auto) 0.500 Neut % (Auto) 73.6 H Lymph % (Auto) 16.1 L [place] % (Auto) 9.1 Eos % (Auto) 0.5 Baso % (Auto) 0.2 Absolute Neuts (auto) 8.0 H Absolute Lymphs (auto) 1.76 Nucleated RBC % 0 PT 12.7 INR 1.0 APTT 32.3 Sodium 135 L Potassium 4.4 Chloride 104 Carbon Dioxide 26.0 Anion Gap 5 BUN 20 H Creatinine 1.12 Estim Creat Clear Calc 54.85 Est GFR (MDRD) Af Amer 80 Est GFR (MDRD) Non-Af 67 BUN/Creatinine Ratio 17.9 Glucose 99 Calcium 9.2 Total Bilirubin 0.60 AST 22 ALT 21 Alkaline Phosphatase 82 Total Protein 6.9 Albumin 3.1 L Globulin 3.8 Albumin/Globulin Ratio 0.8 L Radiography Diagnostic Testing: Clinical Impression(s) from Imaging Studies Hip/Pelvis X-Ray 03/22/21 15:12 IMPRESSION: 1. Nondisplaced intertrochanteric fracture of the left femur. 2. Evidence of internal fixation healing of the right femoral fracture noted on the earlier study. 3. Degenerative changes of the lumbar spine. Electronically Signed: Conrad Tony DO at 16:36 EST Tel [phone], Service support , Chest X-Ray 03/22/21 15:45 IMPRESSION: Resolution of right basilar infiltrate seen in the previous study. The remainder of the findings appears stable. Electronically Signed: Conrad Tony DO at 16:29 EST Tel [phone], Service support , Treatment and Re-Evaluation Vital Sign Attestation:: Vital signs were reviewed prior to admission. They are stable. Discharge Plan Dx/Rx/DC Orders Clinical Impression: Closed intertrochanteric fracture of left hip Disposition Disposition: Acute Care [facility]
[2021-03-22] MEDS: Morphine 4 MG/ML Syringe IV ×2 (15:30→17:56)
[2021-03-22 15:41] LABS: Absolute Lymphocyte Count 1.76 X10^3/uL (0.83-4.51); Basophil# 0.02 X10^3/uL; Basophil% 0.2 % (0-1); Eosinophil# 0.06 X10^3/uL; Eosinophils% 0.5 % (0-5); Hematocrit 40.8 % (40-54); Hemoglobin 14.5 g/dL (13.0-16.5); Lymphocyte # 1.76 X10^3/ul (0.83-4.51); Lymphocyte % 16.1 % (19-41); Mean Corp Hgb Conc 35.5 g/dL (32-36); Mean Corpuscular Hgb 32.3 pg (27.0-32.0); Mean Corpuscular Volume 90.9 fL (80-94); Mean Platelet Vol. 9.1 fl (6.2-12.0); Monocyte# 0.99 X10^3/uL; Monocyte% 9.1 % (0-10); NRBC Flagged by Analyzer 0 % (0-5); Neutrophil # 8.03 X10^3/uL (2.7-7.7); Neutrophil % 73.6 % (47-70); Platelet Count 187 K/mm3 (150-450); RBC Distribution Width CV 13.5 % (11.6-14.6); RBC Distribution Width SD 44.7 fl (35.1-43.9); Red Blood Count 4.49 M/mm3 (4.6-6.2); White Blood Count 10.9 K/mm3 (4.4-11.0)
--- NOTE | 2021-03-22 15:45 | RAD_ITS ---
STUDY: X-RAY CHEST REASON FOR EXAM: Male, 85 years old. Cough. TECHNIQUE: Single AP portable view of the chest. COMPARISON: 03/18/2020. FINDINGS: There is stable elevation left hemidiaphragm with associated pleural effusion versus pleural thickening. Again seen is atelectatic changes versus scarring at the left lung base. Left lung is well expanded. There is resolution of the interstitial infiltrate at the right lung base on the prior study. Sternal cerclage wires are present from a prior sternotomy. The heart is normal in size. Normal mediastinum and gareth. Normal visualized pulmonary arteries. There is atherosclerotic calcification of the aortic arch with tortuosity. No osseous changes. There is no demonstrated abnormality of the visualized soft tissue structures of the upper abdomen. RAD/Chest 1 View (Portable) IMPRESSION: Resolution of right basilar infiltrate seen in the previous study. The remainder of the findings appears stable. Electronically Signed: Conrad Tony DO at 16:29 EST Tel [phone], Service support ,
[2021-03-22 15:54] LABS: Prothrombin Time (Protime)PT. 12.7 SECONDS (11.7-14.9)
[2021-03-22 15:55] LABS: Partial Thromboplast Time 32.3 Seconds (24.1-36.2)
[2021-03-22 16:05] LABS: ALB/GLOB Ratio 0.8 RATIO (0.9-2.4); AST(SGOT) 22 U/L (15-37); Alanine Aminotransfer ALT/SGPT 21 U/L (16-61); Albumin, Serum 3.1 g/dL (3.2-5.0); Alkaline Phosphatase 82 U/L (45-117); Anion Gap 5 (5-15); BUN 20 mg/dL (7-18); BUN/Creat Ratio 17.9 RATIO (10-20); Calcium,Total 9.2 mg/dL (8.5-10.1); Chloride 104 mmol/L (98-107); Creatinine, Serum 1.12 mg/dL (0.70-1.30); EST Glomerular Filtration Rate 67 mL/min (>60); Est Glom Filt Rate - Afr Amer 80 mL/min (>60); Estimated Creatinine Clearance 54.85 ml/min; Globulin 3.8 g/dL (2.2-4.2); Glucose 99 mg/dL (74-106); Potassium 4.4 mmol/L (3.5-5.1); Protein, Total 6.9 g/dL (6.4-8.2); Sodium Level 135 mmol/L (136-145)
[2021-03-22 16:42] VITALS: RESP 16
--- NOTE | 2021-03-22 17:48 | EKG12_ITS ---
Test Reason : Blood Pressure : / mmHG Vent. Rate : 075 BPM Atrial Rate : 075 BPM P-R Int : 182 ms QRS Dur : 156 ms QT Int : 404 ms P-R-T Axes : 062 032 073 degrees QTc Int : 451 ms Normal sinus rhythm Right bundle branch block Abnormal ECG Confirmed by YRIS MACHUCA, KEV ([id number]), continuity editor CHIP CAMACHO ([id number]) on 03/26/2021 7:12:06 AM Referred By: WU Confirmed By:KEV ARNDT MD
--- NOTE | 2021-03-22 18:03 | HP.PCM.HOS_ITS ---
HPI - General General Date of Admission: 03/22/21 Date of Service: 03/22/21 Chief Complaint: Left hip pain HPI Narrative RANCHO MULLER, is a 85 M who presents who was blowing leaves in his yard, lost balance and fell backwards landing on his left hip. Developed left hip pain. He did not hit his head. Since the emergency room and was found to have a nondisplaced left intertrochanteric fracture. Dr. Villarreal was contacted from orthopedics and recommend patient be n.p.o. after midnight and the plan is for surgery on the . Patient has had a history of falls before and has had a right hip fracture in the past. Uses a cane normally but was not using a cane when this incident occurred. 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 Benign essential HTN Bilateral carotid artery stenosis Carotid bruit COPD (chronic obstructive pulmonary disease) Depression Fall GERD (gastroesophageal reflux disease) Hip fracture Hyperlipidemia Insomnia Left carotid artery stenosis RBBB Right femoral fracture TIA (transient ischemic attack) Home Medications aspirin 81 mg PO QHS 04/10/17 [History Last Taken 03/21/21] escitalopram oxalate 5 mg tablet 5 mg PO DAILY 10/11/17 [History Last Taken 03/22/21] lansoprazole 30 mg capsule,delayed release 30 mg PO DAILY PRN PRN cap 10/11/17 [History Last Taken Unknown] docusate sodium 100 mg PO BID 03/18/20 [History Last Taken 03/22/21] multivitamin 1 tab PO DAILY 05/20/20 [History Last Taken 03/22/21] nitroglycerin 0.4 mg sublingual tablet 0.4 mg SUBLINGUAL Q5-15M PRN #25 tab 0 11/26/20 [Rx Last Taken Unknown] atorvastatin 40 mg tablet 40 mg PO QHS #90 tab 12/07/20 [Rx Last Taken 03/21/21] metoprolol succinate 25 mg tablet,extended release 24 hr 25 mg PO DAILY #90 tab 12/07/20 [Rx Last Taken 03/22/21] diphenhydramine-acetaminophen [Acetaminophen PM] 1 - 2 tab PO QHS PRN 03/22/21 [History Last Taken 03/21/21] vitamin B complex [B Complex] 1 cap PO DAILY 03/22/21 [History Last Taken 03/22/21] Allergy/AdvReac Type Severity Reaction Status Date / Time Penicillins Allergy Hives Verified 03/22/21 14:40 Family History Father Myocardial infarction, Onset Age: 68 Brother CAD (coronary artery disease) Myocardial infarction Hx of CABG Brother CHF (congestive heart failure) Surgical History Aortocoronary bypass status (~07/07/00) History of left-sided carotid endarterectomy (~07/22/20) History of right-sided carotid endarterectomy (~09/30/20) Hx of appendectomy Social History Smoking Status: Former smoker alcohol intake: never ROS ROS Narrative Normally patient is fairly active but uses a cane. Does not develop chest pain. Does have chronic shortness of breath due to his COPD but no acute changes. Has been vaccinated for COVID-19 nor has he had any recent sick contacts. All review of systems were negative except as mentioned above in the history of present illness and the other review of systems. Vital Signs Vital Signs Vital Signs: 03/22/21 14:36 03/22/21 14:40 03/22/21 16:42 Temperature 36.4 C L Temperature Source Oral Pulse Rate 77 Respiratory Rate 16 16 16 Blood Pressure 191/86 H Blood Pressure Mean 121 Pulse Ox 96 Oxygen Delivery Method Room Air Weight Weight: 102.3 kg Body Mass Index (BMI) 30.6 Physical Exam Narrative No acute distress and afebrile. Const alert General Appearance: cooperative Neck no lymphadenopathy and supple Resp normal respiratory effort, no retractions, no use of accessory muscles and clear to auscultation bilaterally Cardio regular rate, regular rhythm, S1 normal heart sound and S2 normal heart sound GI normal to inspection, nondistended, normoactive bowel sounds, soft to palpation, non-tender and non-distended Extremity normal to inspection and full ROM Peripheral Pulses: Yes pulses 2+ throughout Skin no rashes or lesions noted Neuro Sensorium / Orientation: awake and alert Results Lab / Micro Data Result Diagrams: 03/22/21 15:33 03/22/21 15:33 Labs: Laboratory Results - last 24 hr 03/22/21 15:33: WBC 10.9, RBC 4.49 L, Hgb 14.5, Hct 40.8, MCV 90.9, MCH 32.3 H, MCHC 35.5, RDW Std Deviation 44.7 H, RDW Coeff of Josh 13.5, Plt Count 187, MPV 9.1, Immature Gran % (Auto) 0.500, Neut % (Auto) 73.6 H, Lymph % (Auto) 16.1 L, [place] % (Auto) 9.1, Eos % (Auto) 0.5, Baso % (Auto) 0.2, Absolute Neuts (auto) 8.0 H, Absolute Lymphs (auto) 1.76, Nucleated RBC % 0 03/22/21 15:33: PT 12.7, INR 1.0, APTT 32.3 03/22/21 15:33: Sodium 135 L, Potassium 4.4, Chloride 104, Carbon Dioxide 26.0, Anion Gap 5, BUN 20 H, Creatinine 1.12, Estim Creat Clear Calc 54.85, Est GFR (MDRD) Af Amer 80, Est GFR (MDRD) Non-Af 67, BUN/Creatinine Ratio 17.9, Glucose 99, Calcium 9.2, Total Bilirubin 0.60, AST 22, ALT 21, Alkaline Phosphatase 82, Total Protein 6.9, Albumin 3.1 L, Globulin 3.8, Albumin/Globulin Ratio 0.8 L Radiology Impression Hip/Pelvis X-Ray 03/22/21 15:12 IMPRESSION: 1. Nondisplaced intertrochanteric fracture of the left femur. 2. Evidence of internal fixation healing of the right femoral fracture noted on the earlier study. 3. Degenerative changes of the lumbar spine. Electronically Signed: Conrad Tony DO at 16:36 EST Tel [phone], Service support , Chest X-Ray 03/22/21 15:45 IMPRESSION: Resolution of right basilar infiltrate seen in the previous study. The remainder of the findings appears stable. Electronically Signed: Conrad Tony DO at 16:29 EST Tel [phone], Service support , Assessment & Plan Assessment/Plan (1) Closed intertrochanteric fracture of left hip: QUALIFIERS: Encounter type: initial encounter Fracture alignment: nondisplaced Qualified Code(s): S72.145A - Nondisplaced intertrochanteric fracture of left femur, initial encounter for closed fracture PLAN: 1. Left hip fracture Patient medically stable to proceed with surgery. Patient has chronic medical conditions but not prohibitive. Patient is a fairly decent performance status at home. SIP surgical clearance calculator shows that he is a slightly higher than average risk of serious complications, any complications readmission and discharged to a correction facility but not prohibitive. Anticipate patient would require correction facility when he is medically ready for discharge. Check a 25-hydroxy vitamin D level. Goal level is for 50. Bedrest, [place] catheter for now. Pain control with oxycodone and morphine for breakthrough. 2. Coronary artery disease Stable Aspirin on hold for surgery 3. COPD Stable Currently on room air 4. VTE prophylaxis SCDs for now Case discussed with the patient's at bedside. She a lot of questions regards to visiting hours what type of surgery is going to have, what his insurance cover the orthopedic surgeon. I told I did not have the answers to her questions but she can answer further with when the meet with orthopedics and also the nursing staff and nurse visiting hours. Charges/Coding Visit Charges Inpatient E&M: 92296 Init Hosp L3
[2021-03-22 18:30] VITALS: BP 141/71; PULSE 77; RESP 16; TEMP 36.4; O2SAT 94
[2021-03-22 18:58] VITALS: BMI 29.6
[2021-03-22 19:19] VITALS: BP 137/77; PULSE 73; RESP 14; TEMP 36.6; O2SAT 96
[2021-03-22] MEDS: Docusate Sodium 100 MG Capsule PO (21:43)
[2021-03-22] MEDS: Atorvastatin Calcium 40 MG Tablet PO (21:43)
[2021-03-23] VITALS (12 sets, daily range): BP systolic 96–148; BP diastolic 51–79; PULSE 64–75; RESP 14–18; TEMP 35.8–36.8; O2SAT 92–100; BMI 29.6
--- NOTE | 2021-03-23 06:38 | PCM.CONS.GEN ---
Assessment & Plan Assessment/Plan (1) Closed intertrochanteric fracture of left hip: QUALIFIERS: Encounter type: initial encounter Fracture alignment: nondisplaced Qualified Code(s): S72.145A - Nondisplaced intertrochanteric fracture of left femur, initial encounter for closed fracture PLAN: Plan for trochanteric femoral nail left side risk benefits alternatives reviewed with the patient and with the over the telephone. Proceed to the OR antibiotics on-call HPI Consult Data Date of Consult: 03/23/21 HPI Narrative HPI Narrative: RANCHO MULLER, is a 85 M who presents After ground-level fall onto left hip blowing leaves. Denies other injuries with this event denies other left lower extremity surgery history of right femoral nailing. 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 Benign essential HTN Bilateral carotid artery stenosis Carotid bruit COPD (chronic obstructive pulmonary disease) Depression Fall GERD (gastroesophageal reflux disease) Hip fracture History of stress test Hyperlipidemia Insomnia Left carotid artery stenosis RBBB Right femoral fracture TIA (transient ischemic attack) Home Medications aspirin 81 mg PO QHS 04/10/17 [History Last Taken 03/21/21] escitalopram oxalate 5 mg tablet 5 mg PO DAILY 10/11/17 [History Last Taken 03/22/21] lansoprazole 30 mg capsule,delayed release 30 mg PO DAILY PRN PRN cap 10/11/17 [History Last Taken Unknown] docusate sodium 100 mg PO BID 03/18/20 [History Last Taken 03/22/21] multivitamin 1 tab PO DAILY 05/20/20 [History Last Taken 03/22/21] nitroglycerin 0.4 mg sublingual tablet 0.4 mg SUBLINGUAL Q5-15M PRN #25 tab 11/26/20 [Rx Last Taken Unknown] atorvastatin 40 mg tablet 40 mg PO QHS #90 tab 12/07/20 [Rx Last Taken 03/21/21] metoprolol succinate 25 mg tablet,extended release 24 hr 25 mg PO DAILY #90 tab 12/07/20 [Rx Last Taken 03/22/21] diphenhydramine-acetaminophen [Acetaminophen PM] 1 - 2 tab PO QHS PRN 03/22/21 [History Last Taken 03/21/21] vitamin B complex [B Complex] 1 cap PO DAILY 03/22/21 [History Last Taken 03/22/21] Allergy/AdvReac Type Severity Reaction Status Date / Time Penicillins Allergy Hives Verified 03/22/21 14:40 Family History Father Myocardial infarction, Onset Age: 68 Brother CAD (coronary artery disease) Myocardial infarction Hx of CABG Brother CHF (congestive heart failure) Surgical History (Updated 03/22/21 @ 21:40 by Alvarez Ryan) Aortocoronary bypass status (~07/07/00) H/O cardiac catheterization History of left-sided carotid endarterectomy (~07/22/20) History of right-sided carotid endarterectomy (~09/30/20) Hx of appendectomy Social History Smoking Status: Former smoker alcohol intake: never Physical Exam Const alert, oriented x3, no apparent distress and well nourished General Appearance: cooperative and comfortable Extremity Extremity Narrative: Left lower extremity flexed compartments soft Able to dorsiflex plantarflex ankle and great toe intact sensation light touch, No open wounds around left hipOr significant ecchymosis Lab / Micro Data Result Diagrams: 03/22/21 15:33 03/22/21 15:33 Labs: Laboratory Results - last 24 hr 03/22/21 15:33: WBC 10.9, RBC 4.49 L, Hgb 14.5, Hct 40.8, MCV 90.9, MCH 32.3 H, MCHC 35.5, RDW Std Deviation 44.7 H, RDW Coeff of Josh 13.5, Plt Count 187, MPV 9.1, Immature Gran % (Auto) 0.500, Neut % (Auto) 73.6 H, Lymph % (Auto) 16.1 L, [place] % (Auto) 9.1, Eos % (Auto) 0.5, Baso % (Auto) 0.2, Absolute Neuts (auto) 8.0 H, Absolute Lymphs (auto) 1.76, Nucleated RBC % 0 03/22/21 15:33: PT 12.7, INR 1.0, APTT 32.3 03/22/21 15:33: Sodium 135 L, Potassium 4.4, Chloride 104, Carbon Dioxide 26.0, Anion Gap 5, BUN 20 H, Creatinine 1.12, Estim Creat Clear Calc 54.85, Est GFR (MDRD) Af Amer 80, Est GFR (MDRD) Non-Af 67, BUN/Creatinine Ratio 17.9, Glucose 99, Calcium 9.2, Total Bilirubin 0.60, AST 22, ALT 21, Alkaline Phosphatase 82, Total Protein 6.9, Albumin 3.1 L, Globulin 3.8, Albumin/Globulin Ratio 0.8 L Micro: Microbiology 03/22/21 17:28 Nasal Secretion SARS-CoV-2 Antigen (Rapid) - Final Radiology Impression Hip/Pelvis X-Ray 03/22/21 15:12 IMPRESSION: 1. Nondisplaced intertrochanteric fracture of the left femur. 2. Evidence of internal fixation healing of the right femoral fracture noted on the earlier study. 3. Degenerative changes of the lumbar spine. Electronically Signed: Conrad Tony DO at 16:36 EST Tel [phone], Service support , Chest X-Ray 03/22/21 15:45 IMPRESSION: Resolution of right basilar infiltrate seen in the previous study. The remainder of the findings appears stable. Electronically Signed: Conrad Tony DO at 16:29 EST Tel [phone], Service support ,
--- NOTE | 2021-03-23 06:42 | NURSING ---
pt yellow band ring removed and watch for surgery. locked up in [facility] room
[2021-03-23] MEDS: Ondansetron 4 MG/2 ML Vial IV (06:49)
[2021-03-23] MEDS: Morphine 2 MG/ML Syringe IV (06:49)
[2021-03-23] MEDS: 0.9% Saline Lock 10 ML Syringe IV (06:50)
--- NOTE | 2021-03-23 07:01 | RAD_ITS ---
STUDY: X-RAY - PELVIS AND LEFT HIP REASON FOR EXAM: Intraoperative fixation for ORIF of left intertrochanteric fracture. TECHNIQUE: 4 intraoperative images of the pelvis and hip. COMPARISON: Radiographs 03/22/2021. FINDINGS: There is a hip nail with femoral intramedullary raulito transfixing an intertrochanteric fracture in anatomical alignment and position. 104.5 seconds of fluoroscopy time was used. Electronically Signed: Yvon Canada MD at 12:25 EST Tel , Service support , RAD/Hip Min 2 Views (Portable)
[2021-03-23] MEDS: Metoprolol(XL)Succ 25 MG Tablet PO (07:21)
[2021-03-23 08:33] LABS: Vitamin D,25 Hydroxy 38.4 ng/mL
[2021-03-23] MEDS: Lactated Ringers 1,000 ML 15 ML IV (08:50)
--- NOTE | 2021-03-23 09:39 | NURSING ---
0830-pt off unit via bed for procedure
[2021-03-23] MEDS: Cefazolin 2 GM in 0.9% Normal Saline 100 ML IV (10:26)
--- NOTE | 2021-03-23 11:39 | PCM.OPRPT ---
Report of Operation Date of Procedure: 03/23/21 Description of Surgical Findings:: Preoperative diagnosis: Left hip intertrochanteric femur fracture Postoperative diagnosis: Same Procedure: Cephalo-medullary fixation right hip Implants: Synthes short nail 130 deg 11 mm diameter 110 mm helical blade 40 mm screw Anesthesia: General EBL: 60 Complications: None Condition: Stable to PACU Indication for procedure: 85-year-old male patient with ground-level fall sustaining injury to hip. Fracture demonstrated intertrochanteric femur fracture pattern. Risk benefits and alternatives were reviewed including risk of bleeding infection nerve, artery, bone, tissue damage, blood clot need for further surgery and continued pain. Procedure: Patient met in the preoperative holding area once again the operative extremity was identified by both patient and physician and was marked. Patient was met by anesthesia and IV was started . patient was brought back to the to the operating room anesthesia was started. Patient was then positioned on the fracture table all bony prominences were well-padded. patient was then positioned with abduction internal rotation and traction and fluoroscopy was brought in to ensure that an adequate reduction could be performed. Patient was then prepped and draped in usual sterile fashion and timeout was called to ensure the proper patient procedure and extremity were being contemplated. Fluoroscopy was used to saumya the tip of the greater trochanter and a 3 fingerbreadth incision was made 2 finger breaths proximal to the tip of the greater trochanter. Was carried carried down through the skin and subcutaneous tissue as well as the gluteal fascia. Guidepin was then inserted through the tip of the greater trochanter directed towards the level of lesser trochanter this was checked in both AP and lateral projections. An opening reamer was performed. Following this was the insertion of the nail the appropriate height jig was used and a triple trocar sleeve was advanced to the skin and a stab incision was made at the trocar was inserted to the level of the bone and a guidepin was placed into the femoral neck and head checked on both AP and lateral projections. This was then measured and appropriately sized helical blade was inserted the nail was locked proximally the fracture was compressed and a locking screw was placed distally the same incision was extended slightly distally to allow the insertion of the trocar for the transverse screw. This was then drilled and measured under fluoroscopy and the appropriate size screw was inserted. Final AP and lateral projections were saved to the PACS system of the entire construct the wounds were thoroughly irrigated the fascia was closed with #1 [id number] Vicryls followed by 2-0 Vicryl in the subcutaneous tissues followed by phoebe in the skin. 0.5% Marcaine with epinephrine was injected into the subcutaneous tissues dressing was applied form of Xeroform 4 x 4 ABD and Ioban tape. Patient tolerated procedure well there is no intraoperative complications and was brought back to the PACU in stable condition.
--- NOTE | 2021-03-23 11:42 | PN.ORTHO_ITS ---
Objective Data Objective Data Vital Signs: Vital Signs Temp Pulse Resp BP Pulse Ox 97.8 F 71 14 148/69 H 96 03/23/21 06:39 03/23/21 07:21 03/23/21 06:39 03/23/21 06:39 03/23/21 06:39 Oxygen Delivery Method Room Air Weight: 218 lb 5 oz Body Mass Index (BMI) 29.6 Intake & Output: Intake and Output for Last 24 Hours 03/21/21 03/22/21 03/23/21 23:59 23:59 23:59 Intake Total 460 / 460 Output Total 450 / 450 Balance Lab / Micro Data Result Diagrams: 03/22/21 15:33 03/22/21 15:33 Labs: Laboratory Results - last 24 hr 03/22/21 15:33: WBC 10.9, RBC 4.49 L, Hgb 14.5, Hct 40.8, MCV 90.9, MCH 32.3 H, MCHC 35.5, RDW Std Deviation 44.7 H, RDW Coeff of Josh 13.5, Plt Count 187, MPV 9.1, Immature Gran % (Auto) 0.500, Neut % (Auto) 73.6 H, Lymph % (Auto) 16.1 L, [place] % (Auto) 9.1, Eos % (Auto) 0.5, Baso % (Auto) 0.2, Absolute Neuts (auto) 8.0 H, Absolute Lymphs (auto) 1.76, Nucleated RBC % 0 03/22/21 15:33: PT 12.7, INR 1.0, APTT 32.3 03/22/21 15:33: Sodium 135 L, Potassium 4.4, Chloride 104, Carbon Dioxide 26.0, Anion Gap 5, BUN 20 H, Creatinine 1.12, Estim Creat Clear Calc 54.85, Est GFR (MDRD) Af Amer 80, Est GFR (MDRD) Non-Af 67, BUN/Creatinine Ratio 17.9, Glucose 99, Calcium 9.2, Total Bilirubin 0.60, AST 22, ALT 21, Alkaline Phosphatase 82, Total Protein 6.9, Albumin 3.1 L, Globulin 3.8, Albumin/Globulin Ratio 0.8 L 03/23/21 06:18: Vitamin D 25-Hydroxy 38.4 03/23/21 06:18: Blood Type O POSITIVE, Antibody Screen NEGATIVE Micro: Microbiology 03/22/21 17:28 Nasal Secretion SARS-CoV-2 Antigen (Rapid) - Final Radiography Diagnostic Testing: Radiology Impression Hip/Pelvis X-Ray 03/22/21 15:12 IMPRESSION: 1. Nondisplaced intertrochanteric fracture of the left femur. 2. Evidence of internal fixation healing of the right femoral fracture noted on the earlier study. 3. Degenerative changes of the lumbar spine. Electronically Signed: Conrad Six Mile RunDO fili at 16:36 EST Tel [phone], Service support , Chest X-Ray 03/22/21 15:45 IMPRESSION: Resolution of right basilar infiltrate seen in the previous study. The remainder of the findings appears stable. Electronically Signed: Conrad Six [place] RunDO fili at 16:29 EST Tel [phone], Service support , Assessment & Plan Assessment/Plan (1) Closed intertrochanteric fracture of left hip: QUALIFIERS: Encounter type: initial encounter Fracture alignment: nondisplaced Qualified Code(s): S72.145A - Nondisplaced intertrochanteric fracture of left femur, initial encounter for closed fracture PLAN: Postop day #0 left hip trochanteric femoral nail LOYD Duron when returning to floor Ancef 1 g IV every 8 hours x3 postoperative doses first dose in PACU Start Eliquis 2.5 mg twice daily start tonight at 11:00 and continue for 3 weeks postop Will need follow-up in office 2 weeks postop for staple removal Dressing to be left on 72 hours postoperatively then removed prior to for shower with antibacterial soap and pat dry place dry dressing over incisions Patient is not to submerge the incisional areas for 3 weeks postop PT OT weightbearing as tolerated, DC planning home versus rehab depending on safety determined by physical therapy in the postoperative period, patient does have 3 steps into his home and lives with his elderly Oxycodone 5 mg 1 to 2 tablets every 4 hours as needed pain
[2021-03-23] MEDS: Lidocaine 1% /Epi 1:100 (20ml) 20 ML Vial (11:51)
[2021-03-23] MEDS: Cefazolin 1 GM/50 ML BAG IV ×2 (12:21→20:16)
[2021-03-23] MEDS: oxyCODONE 5 MG Tablet PO ×3 (14:25→22:54)
[2021-03-23] MEDS: Acetaminophen 500 MG Tablet 1000 MG PO ×2 (14:25→20:15)
[2021-03-23] MEDS: Escitalopram Oxalate 10 MG Tablet 5 MG PO (14:25)
--- NOTE | 2021-03-23 14:45 | PN.HOSP_ITS ---
Documented by User: Steven SAMANO 03/23/21 14:52 Subjective Subjective Patient is an 85-year-old male comfortably resting after surgery status post left femoral nailing, alert and oriented x3. Denies chest pain, shortness of breath, palpitations, hemoptysis, sputum production, fever, chills, N/V/D. Does not appear in acute distress. Objective Data Objective Data Vital Signs: Vital Signs Temp Pulse Resp BP Pulse Ox 97.8 F 70 16 116/59 L 93 03/23/21 13:36 03/23/21 13:36 03/23/21 13:36 03/23/21 13:36 03/23/21 13:36 Oxygen Flow Rate (L/min) 2 Oxygen Delivery Method Room Air Weight: 218 lb 4.122 oz Body Mass Index (BMI) 29.6 Intake & Output: Intake and Output for Last 24 Hours 03/21/21 03/22/21 03/23/21 23:59 23:59 23:59 Intake Total 510 / 510 Output Total 800 / 800 Balance -290 / -290 Lab / Micro Data Result Diagrams: 03/22/21 15:33 03/22/21 15:33 Labs: Laboratory Results - last 24 hr 03/22/21 15:33: WBC 10.9, RBC 4.49 L, Hgb 14.5, Hct 40.8, MCV 90.9, MCH 32.3 H, MCHC 35.5, RDW Std Deviation 44.7 H, RDW Coeff of Josh 13.5, Plt Count 187, MPV 9.1, Immature Gran % (Auto) 0.500, Neut % (Auto) 73.6 H, Lymph % (Auto) 16.1 L, [place] % (Auto) 9.1, Eos % (Auto) 0.5, Baso % (Auto) 0.2, Absolute Neuts (auto) 8.0 H, Absolute Lymphs (auto) 1.76, Nucleated RBC % 0 03/22/21 15:33: PT 12.7, INR 1.0, APTT 32.3 03/22/21 15:33: Sodium 135 L, Potassium 4.4, Chloride 104, Carbon Dioxide 26.0, Anion Gap 5, BUN 20 H, Creatinine 1.12, Estim Creat Clear Calc 54.85, Est GFR (MDRD) Af Amer 80, Est GFR (MDRD) Non-Af 67, BUN/Creatinine Ratio 17.9, Glucose 99, Calcium 9.2, Total Bilirubin 0.60, AST 22, ALT 21, Alkaline Phosphatase 82, Total Protein 6.9, Albumin 3.1 L, Globulin 3.8, Albumin/Globulin Ratio 0.8 L 03/23/21 06:18: Vitamin D 25-Hydroxy 38.4 03/23/21 06:18: Blood Type O POSITIVE, Antibody Screen NEGATIVE Micro: Microbiology 03/22/21 17:28 Nasal Secretion SARS-CoV-2 Antigen (Rapid) - Final Radiography Diagnostic Testing: Radiology Impression Hip/Pelvis X-Ray 03/22/21 15:12 IMPRESSION: 1. Nondisplaced intertrochanteric fracture of the left femur. 2. Evidence of internal fixation healing of the right femoral fracture noted on the earlier study. 3. Degenerative changes of the lumbar spine. Electronically Signed: Conrad Tony DO at 16:36 EST Tel [phone], Service support , Chest X-Ray 03/22/21 15:45 IMPRESSION: Resolution of right basilar infiltrate seen in the previous study. The remainder of the findings appears stable. Electronically Signed: Conrad Tony DO at 16:29 EST Tel [phone], Service support , Hip X-Ray 03/23/21 07:01 Physical Exam Const alert, oriented x3 and no apparent distress HEENT head/scalp atraumatic and moist oral mucous membranes Head and Scalp: normocephalic Eyes PERRL, EOMs intact bilaterally and conjunctivae normal Neck no lymphadenopathy, supple and no JVD Resp normal respiratory effort, no retractions, no use of accessory muscles and clear to auscultation bilaterally Cardio regular rate, regular rhythm, no murmurs and no JVD GI normal to inspection, nondistended, normoactive bowel sounds, soft to palpation and non-tender Extremity normal to inspection, full ROM and no clubbing, cyanosis or edema Skin no rashes or lesions noted, no wounds, skin turgor normal and no jaundice Neuro CN's II-XII intact bilaterally Psych affect normal Assessment & Plan Assessment/Plan (1) Closed intertrochanteric fracture of left hip: QUALIFIERS: Encounter type: initial encounter Fracture alignment: nondisplaced Qualified Code(s): S72.145A - Nondisplaced intertrochanteric fracture of left femur, initial encounter for closed fracture PLAN: Day 1 Discharge planning: To be determined, possible skilled therapy pending physical therapy evaluation. Case management and social work following. 1) closed intertrochanteric fracture of the left hip POD 0 status post left hip trochanteric femoral nailing. Management per orthopedics: Initiate Ancef, initiate Eliquis 2.5 mg p.o. twice daily for 3 weeks postop, patient to follow-up with orthopedic surgeon in 2 weeks for staple removal. PT/OT to assess for possible skilled therapy needs. 2) CAD Stable, aspirin held for surgery. Continue statin. 3) COPD Not in acute exacerbation, currently satting 93% on room air. 4) HTN Stable, continue beta-ignacio. DVT prophylaxis - Eliquis, per orthopedics. Patient seen by Steven Ames PA-C, under the supervision of Dr. Berry. Documented by User: Dr. Natalie Berry DO 03/23/21 15:47 Subjective Subjective This patient was seen in conjunction with SELWYN Trivedi. The following is representation my independent history and physical examination. Please see below for any addendum the above. Patient is currently complaining of some hip pain but states that he is feeling better than he did prior to surgery. He is immediately postop and eating some Jell-O at this time. His is at his bedside and they state they are very interested in being able to go home rather than being able to go to rehab. They are willing to have some home health but are fairly adamant that they are not in terested in going to rehab unless is absolutely necessary. Objective Data Lab / Micro Data Result Diagrams: 03/22/21 15:33 11/22/21 15:33 Physical Exam Const alert, oriented x3 and no apparent distress Constitutional Narrative: Overweight white male sitting up in bed, at b millicentide, patient is eating Jell-O and appears comfortable, nontoxic Exam Limitations: no limitations Nutritional Appearance: overweight HEENT head/scalp atraumatic and moist oral mucous membranes HEENT Narrative: Mallampati 2, no thrush, tongue red from eating Jell-O Head and Scalp: normocephalic Resp normal respiratory effort, no retractions, no use of accessory muscles and clear to auscultation bilaterally Auscultation: Negative for crackles, rales, rhonchi or wheezes Cardio regular rate, regular rhythm, S1 normal heart sound, S2 normal heart sound, no murmurs, no rub, no gallops, no clicks and no JVD GI normal to inspection, nondistended, normoactive bowel sounds, soft to palpation, non-tender and non-distended Extremity no clubbing, cyanosis or edema Peripheral Pulses: Yes pulses 2+ throughout Neuro oriented x3, moves all extremities and no focal motor deficits Neuro Narrative: Moves all extremities but limited on the left side secondary to recent surgery and pain Sensorium / Orientation: awake and alert Speech: speech normal Assessment & Plan Assessment/Plan (1) Closed intertrochanteric fracture of left hip: QUALIFIERS: Encounter type: initial encounter Fracture alignment: nondisplaced Qualified Code(s): S72.145A - Nondisplaced intertrochanteric fracture of left femur, initial encounter for closed fracture PLAN: Assessment: Left hip closed intertrochanteric fracture status post cephalomedullary nail Frequent falls CAD with history of CABG 2000 COPD Hypertension Chronic right bundle branch block Hyperlipidemia History of TIA Bilateral carotid artery stenosis Aortic root dilation Depression GERD Plan: -Postop day [address] Riggs -PT/OT consultations -Family would prefer home with home health if possible -They indicate they have assisted devices at home -Eliquis 2.5 mg twice daily for 3 weeks for postoperative DVT prophylaxis -Patient will need follow-up with orthopedic surgery in 2 weeks for staple removal -Dressing to remain in place for 72 hours postoperatively then removed prior to shower with antibacterial soap and pat dry with new dressing placed over incisions -No submerging incisional area for 3 weeks -Pain management per orthopedic surgery -Weightbearing as tolerated -Continue home medications -Remove Duron as able -Repeat lab in a.m. Charges/Coding Visit Charges Inpatient E&M: 72320 Subs Hosp L2
--- NOTE | 2021-03-23 15:00 | CASEMGMT ---
JESSENIA MORALES UTILIZATION COORDINATOR ANDREW to room to meet with patient for initial transition planning/care coordination assessment. JESSENIA MORALES introduced self and role at [facility]. Pt voices understanding and consents to assessment at this time. Pt resting in bed in no distress at this time. Pt is A/O at this time and answers all questions appropriately. Care providers, pharmacy, and demographics verified/updated at this time. PCP: Dr King Specialists: Dr Troy--cardiology Preferred Pharmacy:[facility] Insurance: [employer] [facility] Prescription Benefit: Yes Living Will/HPOA: Has both LW and HPOA, who is his , Lea COLINOK: Living Arrangements: Lives w/ in one-story home w/3 steps to enter w/handrails on both sides. Independent prior to fall/hospitalization. does home mgmt tasks and manages pt's meds/appts. Pt does yardwork/out-door work Transportation: Pt states drives self and states no transportation concerns at this time. also drives. DME: States has the following DME: Shower chair, BSC, RTS, Cane, FWW, lift chair Pt states no need for further DME at this time. HHC/SNF: Pt states he goes to [facility] on his own 3 x's/week. Discussed option of SNF vs HHC vs OP therapy. Pt states he wants to go home and declines any HHC or OP PT/OT at all. He states he wants to continue to go to [facility] and work out on his own and does not want to work w/a therapist, stating, I already do all the stuff they tell you to do anyway. Pt aware PT/OT evals to be completed while @ [facility]. PLAN: TBD. PT/OT evals pending. Pt wishes to return home and is declining any HHC or OP PT/OT at this time. Milli BISHOP RN, CM
[2021-03-23] MEDS: Atorvastatin Calcium 40 MG Tablet PO (20:16)
[2021-03-23] MEDS: Docusate Sodium 100 MG Capsule PO (20:16)
[2021-03-23] MEDS: APIXABAN 2.5 MG TABLET PO (20:17)
[2021-03-24] VITALS (8 sets, daily range): BP systolic 110–130; BP diastolic 55–89; PULSE 64–83; RESP 16–18; TEMP 36.1–37; O2SAT 87–98
[2021-03-24] MEDS: Cefazolin 1 GM/50 ML BAG IV (03:44)
[2021-03-24] MEDS: Acetaminophen 500 MG Tablet 1000 MG PO ×3 (05:57→21:12)
[2021-03-24] MEDS: Ondansetron 4 MG/2 ML Vial IV (05:59)
[2021-03-24 07:24] LABS: Absolute Lymphocyte Count 1.54 X10^3/uL (0.83-4.51); Absolute Neutrophil Count 16.3 X10^3/uL (2.0-7.7); Basophil# 0.02 X10^3/uL; Basophil% 0.1 % (0-1); Hematocrit 32.2 % (40-54); Lymphocyte # 1.54 X10^3/ul (0.83-4.51); Lymphocyte % 7.6 % (19-41); Mean Corp Hgb Conc 34.2 g/dL (32-36); Mean Corpuscular Hgb 31.3 pg (27.0-32.0); Mean Corpuscular Volume 91.7 fL (80-94); Mean Platelet Vol. 9.2 fl (6.2-12.0); Monocyte# 2.41 X10^3/uL; Monocyte% 11.8 % (0-10); NRBC Flagged by Analyzer 0 % (0-5); Neutrophil # 16.28 X10^3/uL (2.7-7.7); POSITIVE DIFFERENTIAL YES; Platelet Count 182 K/mm3 (150-450); RBC Distribution Width CV 13.7 % (11.6-14.6); RBC Distribution Width SD 45.1 fl (35.1-43.9); Red Blood Count 3.51 M/mm3 (4.6-6.2); White Blood Count 20.4 K/mm3 (4.4-11.0)
[2021-03-24 07:26] LABS: Differential Indicated SCAN CRITERIA MET
[2021-03-24] MEDS: Multivitamins,Therapeutic Tablet 1 TABLET PO (08:15)
[2021-03-24 08:33] LABS: Hypochromasia RARE; Platelet Estimate ADEQUATE (ADEQ)
[2021-03-24] MEDS: Escitalopram Oxalate 10 MG Tablet 5 MG PO (11:03)
[2021-03-24] MEDS: Vitamin B Comp W-C Capsule 1 CAP PO (11:03)
[2021-03-24] MEDS: APIXABAN 2.5 MG TABLET PO ×2 (11:03→21:12)
[2021-03-24] MEDS: Docusate Sodium 100 MG Capsule PO ×2 (11:03→21:12)
[2021-03-24] MEDS: Metoprolol(XL)Succ 25 MG Tablet PO (11:04)
[2021-03-24] MEDS: Cholecalciferol (VIT D3) 25 MCG TABLET (1,000 UNITS) 50 MCG PO (11:07)
--- NOTE | 2021-03-24 12:41 | PN.ORTHO_ITS ---
Subjective Subjective Patient seen today 1 day postop for short TFN nail fixation for non displaced intertrochanteric fracture. Patient states that he feels he is doing well. He states that he does not have any pains or discomfort while in bed or resting in the chair. He states that he had some moderate pain while walking with therapy this morning but again when he was finished and sat down the pains stopped again. He states that the pains are not really in the hip where he was having pains pre-op but rather are lower in the leg (points mid thigh where distal screw was placed.) Objective Data Objective Data Vital Signs: Vital Signs Temp Pulse Resp BP Pulse Ox 97.0 F L 75 16 118/89 H 98 03/24/21 09:30 03/24/21 11:04 03/24/21 09:30 03/24/21 09:30 03/24/21 10:25 Oxygen Flow Rate (L/min) 2 Oxygen Delivery Method Room Air Weight: 218 lb 4.122 oz Body Mass Index (BMI) 29.6 Intake & Output: Intake and Output for Last 24 Hours 03/22/21 03/23/21 03/24/21 23:59 23:59 23:59 Intake Total 1560 / 1560 50 / 50 Output Total 1375 / 1825 750 / 750 Balance 185 / -265 -700 / -700 Lab / Micro Data Result Diagrams: 03/24/21 06:49 03/22/21 15:33 Labs: Laboratory Results - last 24 hr 03/24/21 06:49: WBC 20.4 H, RBC 3.51 L, Hgb 11.0 L, Hct 32.2 L, MCV 91.7, MCH 31.3, MCHC 34.2, RDW Std Deviation 45.1 H, RDW Coeff of Josh 13.7, Plt Count 182, MPV 9.2, Immature Gran % (Auto) 0.500, Neut % (Auto) 80.0 H, Lymph % (Auto) 7.6 L, [place] % (Auto) 11.8 H, Eos % (Auto) 0.0, Baso % (Auto) 0.1, Absolute Neuts (auto) 16.3 H, Absolute Lymphs (auto) 1.54, Nucleated RBC % 0, Diff Path Review May foll, Platelet Estimate ADEQUATE, Hypochromasia RARE Micro: Microbiology 03/22/21 17:28 Nasal Secretion SARS-CoV-2 Antigen (Rapid) - Final Physical Exam Narrative Upon entering the room today patient is seated upright in bed eating lunch. He has no signs of distress or any signs of discomfort at all. Patient states that he feels he is doing well having no pains while seated or in bed having some mild pains while walking. Const alert, no apparent distress, healthy appearing and well nourished Constitutional Narrative: Patient has no signs of obvious disorientation or confusion at this time. Apparently he was having some problems yesterday postoperatively. General Appearance: cooperative and comfortable Orientation / Consciousness: awake; Negative for confused or lethargic Extremity Left Lower Extremity: hip joint inspection (Ioban occlusive dressing still in p lace. Some dried blood noted on the overlying ABD pads at both incision sites. no pooling or leaking outisde of the ABD pads.), palpation (mild discomfort on the lateral mid thigh at the site of the distal screw fixation. ), neurovascular exam (He has soft compartments. There is some general swelling in the lower extremity Intact sensation to light touch he states. intact motor function in ankle/foot/toes.), other (No calf tenderness and a negative homans) and special tests Assessment & Plan Assessment/Plan (1) Closed intertrochanteric fracture of left hip: QUALIFIERS: Encounter type: initial encounter Fracture alignment: nondisplaced Qualified Code(s): S72.145A - Nondisplaced intertrochanteric fracture of left femur, initial encounter for closed fracture PLAN: Patient seen today for postop evaluation 1 day after TFN fixation of left nondisplaced intertrochanteric fracture. Patient underwent successful surgery yesterday without any complications intraoperatively. No postop complications immediately observed. Upon entering the room today patient was sitting upright without signs of acute distress or any discomfort/pain. Ioban occlusive dressing was still in place. There was some dried blood noted on the proximal and distal incision sites at the same time no evident pooling or any blood outside of the ABD pads. He has a minor discomfort noted on the distal incision for the screw fixation. He has intact motor function of the knee/ankle/foot. He states he has normal sensation light touch. Patient does have soft/compressible compartments at the same time some edema noted throughout the lower extremity. Patient did have evident pitting edema preoperatively and states he has chronic swelling/edema of the left leg. At this time we did spend a lot of time discussing anatomy physiology as well as the actual procedure with patient and his looking at TFN schematics. He did have some lower blood pressure yesterday and was pretty drowsy and therefore PT was unable to get him up standing. He still had some light headedness upon standing this morning according to the nurse. I Did review his labs showing some decrease in his red blood cell count with a hemoglobin of 11.0 compared to 14 preoperatively. There was some elevations in his white count to be followed as well. Most recent BP looked good. At this time we did discuss the importance of continued physical therapy for ambulation and gait training as well as balance. Patient's states that she definitely wants him to improve as she states he was already having some shuffling gait/ short choppy steps and was pretty unstable walking prior to him fracturing his hip. She states they only have 3 steps getting up to their house and that everything inside is okay but she still has concerns making sure he is stable. He went to TCU with his right hip fracture and therefore could consider that given the 's concern for his stability and especially if if PT feels he is not progressing to where they feel it is appropriate. Can continue weight bearing as tolerated. Can continue to monitor dressing and as long as no blood pooling or noted seeping from the ABDs, can leave in place and remove at 72 hours. Will then clean dressing daily with soap and water and cover during day. No submersing the area for at least 3 weeks postoperative. Continue to take the eliquis daily for 3 weeks post-op. Will f/u in office 2 weeks post-op in order to have his phoebe removed (either in office or in TCU.) Continue to monitor the incision sites once dressing removed for any erythema, warmth, discharge, increasing pains, or any other signs or symptoms . (2) Status post-operative repair of closed fracture of left hip:
--- NOTE | 2021-03-24 12:43 | PN.HOSP_ITS ---
Documented by User: Steven SAMANO 03/24/21 12:53 Subjective Subjective Patient is an 85-year-old male comfortably resting in bed, alert and orient x3. Patient denies any complaints or development of new symptoms from yesterday. Does not appear in acute distress. Objective Data Objective Data Vital Signs: Vital Signs Temp Pulse Resp BP Pulse Ox 97.0 F L 75 16 118/89 H 98 03/24/21 09:30 03/24/21 11:04 03/24/21 09:30 03/24/21 09:30 03/24/21 10:25 Oxygen Flow Rate (L/min) 2 Oxygen Delivery Method Room Air Weight: 218 lb 4.122 oz Body Mass Index (BMI) 29.6 Intake & Output: Intake and Output for Last 24 Hours 03/22/21 03/23/21 03/24/21 23:59 23:59 23:59 Intake Total 1560 / 1560 50 / 50 Output Total 1375 / 1825 750 / 750 Balance 185 / -265 -700 / -700 Lab / Micro Data Result Diagrams: 03/24/21 06:49 03/22/21 15:33 Labs: Laboratory Results - last 24 hr 03/24/21 06:49: WBC 20.4 H, RBC 3.51 L, Hgb 11.0 L, Hct 32.2 L, MCV 91.7, MCH 31.3, MCHC 34.2, RDW Std Deviation 45.1 H, RDW Coeff of Josh 13.7, Plt Count 182, MPV 9.2, Immature Gran % (Auto) 0.500, Neut % (Auto) 80.0 H, Lymph % (Auto) 7.6 L, [place] % (Auto) 11.8 H, Eos % (Auto) 0.0, Baso % (Auto) 0.1, Absolute Neuts (auto) 16.3 H, Absolute Lymphs (auto) 1.54, Nucleated RBC % 0, Diff Path Review May foll, Platelet Estimate ADEQUATE, Hypochromasia RARE Micro: Microbiology 03/22/21 17:28 Nasal Secretion SARS-CoV-2 Antigen (Rapid) - Final Physical Exam Const alert, oriented x3 and no apparent distress HEENT head/scalp atraumatic, moist oral mucous membranes and oropharynx normal Head and Scalp: normocephalic Eyes PERRL, EOMs intact bilaterally and conjunctivae normal Neck no lymphadenopathy, supple and no JVD Resp normal respiratory effort, no retractions, no use of accessory muscles and clear to auscultation bilaterally Cardio regular rate, regular rhythm, no murmurs and no JVD GI normal to inspection, nondistended, normoactive bowel sounds, soft to palpation, non-tender and non-distended Extremity normal to inspection, full ROM and no clubbing, cyanosis or edema Skin no rashes or lesions noted, no wounds, skin turgor normal and no jaundice Neuro CN's II-XII intact bilaterally Psych affect normal Assessment & Plan Assessment/Plan (1) Closed intertrochanteric fracture of left hip: QUALIFIERS: Encounter type: initial encounter Fracture alignment: nondisplaced Qualified Code(s): S72.145A - Nondisplaced intertrochanteric fra cture of left femur, initial encounter for closed fracture PLAN: Day 2 Discharge planning: Discharge to TCU pending decision from family. 1) closed intertrochanteric fracture of the left hip POD 1 status post left hip trochanteric femoral nailing. Management per ort hopedics: initiate Eliquis 2.5 mg p.o. twice daily for 3 weeks postop, patient to follow-up with orthopedic surgeon in 2 weeks for staple removal. Patient continues to have ongoing difficulty with physical therapy and is in need of further skilled therapy. Possible discharge to TCU pending decision from family. 2) CAD Stable, aspirin held for surgery. Continue statin. 3) COPD Not in acute exacerbation, currently satting 93% on room air. 4) HTN Stable, continue beta-ignacio. DVT prophylaxis - Eliquis, per orthopedics. Patient seen by Steven Ames PA-C, under the supervision of Dr. Berry. Documented by User: Dr. Natalie Berry DO 03/24/21 15:26 Subjective Subjective This patient was seen in conjunction with SELWYN Trivedi. The following is representation my independent history and physical examination. Please see below for addendum the above. Patient was in the process of being evaluated by physical and Occupational Therapy at the time of my evaluation. After which they reported to me that he did poorly. He is having some continued left hip pain. Their recommendations are for ongoing inpatient therapy with SNF versus TCU at discharge. and patient were somewhat resistant to that yesterday but we will address this with him further today. Objective Data Lab / Micro Data Result Diagrams: 03/24/21 06:49 03/22/21 15:33 Physical Exam Narrative No acute distress and afebrile. Const alert, oriented x3 and no apparent distress Constitutional Narrative: Overweight white male sitting up in a chair, PT and OT at the bedside, patient is bearing less weight on his left hip, nontoxic General Appearance: cooperative Exam Limitations: no limitations Nutritional Appearance: overweight HEENT head/scalp atraumatic and moist oral mucous membranes Head and Scalp: normocephalic Resp normal respiratory effort, no retractions, no use of accessory muscles and clear to auscultation bilaterally Auscultation: Negative for crackles, rales, rhonchi or wheezes Cardio regular rate, regular rhythm, S1 normal heart sound, S2 normal heart sound, no murmurs, no rub, no gallops, no clicks and no JVD GI normal to inspection, nondistended, normoactive bowel sounds, soft to palpation, non-tender and non-distended Extremity no clubbing, cyanosis or edema Extremity Narrative: Left hip postoperative bandage in place with proximal serosanguineous drainage on bandage-no more than to be expected Peripheral Pulses: Yes pulses 2+ throughout Neuro moves all extremities and no focal motor deficits Neuro Narrative: Moves all extremities but limited on the left side secondary to recent surgery and pain Sensorium / Orientation: awake and alert Speech: speech normal Assessment & Plan Assessment/Plan (1) Closed intertrochanteric fracture of left hip: QUALIFIERS: Encounter type: initial encounter Fracture alignment: nondisplaced Qualified Code(s): S72.145A - Nondisplaced intertrochanteric fracture of left femur, initial encounter for closed fracture (2) Status post-operative repair of closed fracture of left hip: (3) Leukocytosis: (4) Anemia: PLAN: Assessment: Left hip closed intertrochanteric fracture status post cephalomedullary nail Acute normocytic anemia Acute leukocytosis Frequent falls CAD with history of CABG 2000 COPD Hypertension Chronic right bundle branch block Hyperlipidemia History of TIA Bilateral carotid artery stenosis Aortic root dilation Depression GERD ? Memory impairment Plan: -Postop day [address] Riggs -PT/OT following and recommend skilled versus TCU at discharge -Currently awaiting pre-CERT to TCU and once obtained will discharge -Eliquis 2.5 mg twice daily for 3 weeks for postoperative DVT prophylaxis -Patient will need follow-up with orthopedic surgery in 2 weeks for staple removal -Dressing to remain in place for 72 hours postoperatively then removed prior to shower with antibacterial soap and pat dry with new dressing placed over incisions -No submerging incisional area for 3 weeks -Pain management per orthopedic surgery -Weightbearing as tolerated -Continue home medications -Suspect leukocytosis is related to acute stress reaction--> will monitor -Anemia likely related to dilution and intraoperative blood loss--> repeat CBC in a.m. -Repeat lab in a.m. -I do question whether or not this patient has some baseline memory impairment and [facility]. Evaluation can be done at [place]. Charges/Coding Visit Charges Inpatient E&M: 96166 Subs Hosp L2
[2021-03-24] MEDS: oxyCODONE 5 MG Tablet PO ×2 (13:21→23:06)
--- NOTE | 2021-03-24 14:46 | CASEMGMT ---
Social Work Note SW reviewed PT/OT. Pt assist of two, recommendation is SNF. SW in to speak with pt and pt's Lea. SW spoke with pt and Lea about recommendation of SNF. Patient was provided a list of SNF providers including quality and resource use data and consistent with the patient?s preferred geographic region, medical needs, and insurance network. Pt and Lea agreeable to [facility] TCU. SW Explained referral process. Pt and Lea state understanding. SW placed a call to [facility] with TCU and provided referral. TCU is able to accept pending pre-cert. SW updated pt and Lea that TCU is able to accept pt pending pre-cert. Plan: TCU pending pre-cert Marie Seymour PLASTICS FABRICATION SUPERVISOR, CHRONIC CONDITION NURSE
[2021-03-24 15:22] LABS: Pathologist Review Reviewed
[2021-03-24] MEDS: Albuterol 2.5 MG/3 ML VIAL.NEB. INHALATION (20:09)
--- NOTE | 2021-03-24 20:24 | CPS ---
Patient refused oxygen and breathing txs. Does not believe that these are necessary per patient.
[2021-03-24] MEDS: Atorvastatin Calcium 40 MG Tablet PO (21:12)
[2021-03-24] MEDS: DiphenhydrAMINE 25 MG Capsule PO (23:06)
[2021-03-25] VITALS (8 sets, daily range): BP systolic 101–138; BP diastolic 60–79; PULSE 80–91; RESP 18–20; TEMP 36.6–36.8; O2SAT 92–95
[2021-03-25 03:31] LABS: Bedside Glucose 121 mg/dL (70-110)
[2021-03-25] MEDS: oxyCODONE 5 MG Tablet PO ×2 (03:36→10:31)
[2021-03-25] MEDS: Acetaminophen 500 MG Tablet 1000 MG PO ×3 (05:41→22:50)
[2021-03-25 06:29] LABS: Absolute Lymphocyte Count 1.28 X10^3/uL (0.83-4.51); Absolute Neutrophil Count 12.9 X10^3/uL (2.0-7.7); Basophil# 0.02 X10^3/uL; Basophil% 0.1 % (0-1); Eosinophil# 0.03 X10^3/uL; Eosinophils% 0.2 % (0-5); Hemoglobin 10.2 g/dL (13.0-16.5); Lymphocyte # 1.28 X10^3/ul (0.83-4.51); Lymphocyte % 7.7 % (19-41); Mean Corp Hgb Conc 35.2 g/dL (32-36); Mean Corpuscular Hgb 32.1 pg (27.0-32.0); Mean Corpuscular Volume 91.2 fL (80-94); Mean Platelet Vol. 9.4 fl (6.2-12.0); Monocyte# 2.27 X10^3/uL; Monocyte% 13.6 % (0-10); NRBC Flagged by Analyzer 0 % (0-5); Neutrophil # 12.92 X10^3/uL (2.7-7.7); Neutrophil % 77.5 % (47-70); POSITIVE DIFFERENTIAL YES; Platelet Count 172 K/mm3 (150-450); RBC Distribution Width CV 13.7 % (11.6-14.6); RBC Distribution Width SD 45.1 fl (35.1-43.9); Red Blood Count 3.18 M/mm3 (4.6-6.2); White Blood Count 16.7 K/mm3 (4.4-11.0)
[2021-03-25 06:43] LABS: Differential Indicated SCAN CRITERIA MET
[2021-03-25 06:46] LABS: Anion Gap 6 (5-15); BUN 32 mg/dL (7-18); BUN/Creat Ratio 21.2 RATIO (10-20); Calcium,Total 8.8 mg/dL (8.5-10.1); Chloride 92 mmol/L (98-107); Creatinine, Serum 1.51 mg/dL (0.70-1.30); EST Glomerular Filtration Rate 47 mL/min (>60); Est Glom Filt Rate - Afr Amer 57 mL/min (>60); Estimated Creatinine Clearance 40.68 ml/min; Glucose 114 mg/dL (74-106); Potassium 4.5 mmol/L (3.5-5.1); Sodium Level 127 mmol/L (136-145)
[2021-03-25] MEDS: Multivitamins,Therapeutic Tablet 1 TABLET PO (07:52)
--- NOTE | 2021-03-25 09:27 | PN.HOSP_ITS ---
Documented by User: Lindy Mccallum NP-C 03/25/21 09:43 Subjective Subjective Patient seen and examined. Patient states his pain is well controlled at this time. Patient laying in bed no distress noted. Objective Data Objective Data Vital Signs: Vital Signs Temp Pulse Resp BP Pulse Ox 98.3 F 88 18 101/60 93 03/25/21 08:30 03/25/21 08:30 03/25/21 08:30 03/25/21 08:30 03/25/21 08:30 Oxygen Flow Rate (L/min) 2 Oxygen Delivery Method Room Air Weight: 218 lb 4.122 oz Body Mass Index (BMI) 29.6 Intake & Output: Intake and Output for Last 24 Hours 03/23/21 03/24/21 03/25/21 23:59 23:59 23:59 Intake Total 1560 / 1560 1750 / 1850 200 / 200 Output Total 1375 / 1825 1150 / 1150 300 / 300 Balance 185 / -265 600 / 700 -100 / -100 Lab / Micro Data Result Diagrams: 03/25/21 05:35 03/25/21 09:15 Labs: Laboratory Results - last 24 hr 03/24/21 06:49: Diff Path Review Reviewed 03/25/21 03:19: POC Glucose 121 H 03/25/21 05:35: WBC 16.7 H, RBC 3.18 L, Hgb 10.2 L, Hct 29.0 L, MCV 91.2, MCH 32.1 H, MCHC 35.2, RDW Std Deviation 45.1 H, RDW Coeff of Josh 13.7, Plt Count 172, MPV 9.4, Immature Gran % (Auto) 0.900, Neut % (Auto) 77.5 H, Lymph % (Auto) 7.7 L, [place] % (Auto) 13.6 H, Eos % (Auto) 0.2, Baso % (Auto) 0.1, Absolute Neuts (auto) 12.9 H, Absolute Lymphs (auto) 1.28, Nucleated RBC % 0, Diff Path Review August03/25/21 05:35: Sodium 127 L, Potassium 4.5, Chloride 92 L, Carbon Dioxide 29.0, Anion Gap 6, BUN 32 H, Creatinine 1.51 H, Estim Creat Clear Calc 40.68, Est GFR (MDRD) Af Amer 57 L, Est GFR (MDRD) Non-Af 47 L, BUN/Creatinine Ratio 21.2 H, Glucose 114 H, Calcium 8.8 Micro: Microbiology 03/22/21 17:28 Nasal Secretion SARS-CoV-2 Antigen (Rapid) - Final Physical Exam Narrative No acute distress and afebrile. Const alert, oriented x3 and no apparent distress General Appearance: cooperative Exam Limitations: no limitations Nutritional Appearance: overweight HEENT head/scalp atraumatic and moist oral mucous membranes Head and Scalp: normocephalic Eyes conjunctivae normal and no scleral icterus Neck no lymphadenopathy and supple General: trachea midline Resp normal respiratory effort, normal air movement and clear to auscultation bilaterally Effort and Inspection: able to speak in complete sentences and symmetric chest movement Cardio regular rate, regular rhythm, S1 normal heart sound and S2 normal heart sound GI normal to inspection, nondistended, normoactive bowel sounds, soft to palpation and non-tender Extremity normal to inspection, full ROM and no clubbing, cyanosis or edema Extremity Narrative: Left hip postoperative bandage in place with proximal serosanguineous drainage on bandage Peripheral Pulses: Yes pulses 2+ throughout Skin no rashes or lesions noted Neuro moves all extremities and no focal motor deficits Neuro Narrative: Moves all extremities but limited on the left side secondary to recent surgery and pain Sensorium / Orientation: awake and alert Speech: speech normal Psych cooperative and affect normal Assessment & Plan Assessment/Plan (1) Status post-operative repair of closed fracture of left hip: (2) Closed intertrochanteric fracture of left hip: QUALIFIERS: Encounter type: initial encounter Fracture alignment: nondisplaced Qualified Code(s): S72.145A - Nondisplaced intertrochanteric fracture of left femur, initial encounter for closed fracture PLAN: 1. Closed intertrochanteric fracture of the left hip -Postop day 2 status post left hip trochanteric femoral nailing -Continue Eliquis 2.5 mg twice daily x3 weeks -Patient will follow up with orthopedic surgeon in 2 weeks for staple removal -Plan for patient to discharge to TCU for ongoing physical therapy needs 2. Hyponatremia -Patient sodium level 135 yesterday, 127 today -Will obtain second BMP for verification -If second BMP also demonstrates hyponatremia, will place patient on a fluid re striction -Daily BMP ordered 3. CAD -Continue statin -Aspirin held at this time 4. Hypertension -Vital signs per protocol, stable -Continue beta-ignacio 5. COPD -Stable -Pulse ox 93% on room air currently DVT prophylaxis-Eliquis This patient was seen by Lindy Mccallum NP-C under the supervision of Dr. Berry. Documented by User: Dr. Natalie Berry DO 03/25/21 12:23 Subjective Subjective This patient was seen in conjunction with Lindy Dumont NP. The following is representation my independent history and physical examination. Please see below for addendum the above. Patient has been quite painful and not all that willing to put much weight on his left hip per discussion with nursing. I did discuss with him the importance of moving and getting out of bed and he states he will try today. He does remain a bit confused and I suspect some of this is baseline confusion with possible underlying mild cognitive impairment versus dementia with some superimposed delirium. Objective Data Lab / Micro Data Result Diagrams: 03/25/21 05:35 03/25/21 09:15 Physical Exam Narrative No acute distress and afebrile. Const alert and no apparent distress Constitutional Narrative: Overweight white male sitting up in bed eating juventino akfast, confused but nontoxic General Appearance: cooperative Orientation / Consciousness: confused Exam Limitations: no limitations Nutritional Appearance: overweight HEENT head/scalp atraumatic and moist oral mucous membranes Head and Scalp: normocephalic Eyes no scleral icterus Neck General: trachea midline Resp normal respiratory effort, normal air movement, no retractions, no use of accessory muscles and clear to auscultation bilaterally Effort and Inspection: able to speak in complete sentences and symmetric chest movement Auscultation: Negative for crackles, rales, rhonchi or wheezes Cardio regular rate, regular rhythm, S1 normal heart sound, S2 normal heart sound, no murmurs, no rub, no gallops, no clicks and no JVD GI normal to inspection, nondistended, normoactive bowel sounds, soft to palpation, non-tender, non-distended and hepatosplenomegaly Extremity normal to inspection, full ROM and no clubbing, cyanosis or edema Extremity Narrative: Left hip postoperative bandage in place with proximal serosanguineous drainage on bandage that has extended but not sleep through the external bandage Peripheral Pulses: Yes pulses 2+ throughout Neuro Neuro Narrative: Moves all extremities but limited on the left lower extremity secondary to recent surgery and pain, mild confusion Sensorium / Orientation: awake and alert Speech: speech normal Psych cooperative Assessment & Plan Assessment/Plan (1) Status post-operative repair of closed fracture of left hip: (2) Leukocytosis: (3) Anemia: (4) Hyponatremia: PLAN: Assessment: Left hip closed intertrochanteric fracture status post cephalomedullary nail Acute normocytic anemia Acute leukocytosis Acute hyponatremia RAMON Frequent falls CAD with history of CABG 2000 COPD Hypertension Chronic right bundle branch block Hyperlipidemia History of TIA Bilateral carotid artery stenosis Aortic root dilation Depression GERD ? Memory impairment Plan: -Postop day [address] Riggs -PT/OT following and recommend skilled versus TCU at discharge -Currently awaiting pre-CERT to TCU and once obtained will discharge -Eliquis 2.5 mg twice daily for 3 weeks for postoperative DVT prophylaxis -Patient will need follow-up with orthopedic surgery in 2 weeks for staple removal -Dressing to remain in place for 72 hours postoperatively then removed prior to shower with antibacterial soap and pat dry with new dressing placed over incisions -No submerging incisional area for 3 weeks -Pain management per orthopedic surgery -Weightbearing as tolerated -Continue home medications -Suspect leukocytosis is related to acute stress reaction--> trending down -Anemia likely related to dilution and intraoperative blood loss--> repeat CBC in a.m. -Sodium is down to 126 from 135 in the last 24 hours and serum creatinine is up as well in the last 24 hours -I suspect this is related to decreased p.o. intake and some dehydration -Will start normal saline at 70 cc/h and repeat BMP this evening at 1800 -If no improvement or worsening will need to perform further studies to work-up hyponatremia -If worse or no improvement will order urine and serum osmolality, urine sodium, TSH, serum cortisol, and uric acid -Patient is on SSRI at home but I doubt this is the etiology of acute changes -I do question whether or not this patient has some baseline memory impairment and would [facility]. Evaluation can be done at [facility]. -Patient has been accepted at TCU and we are awaiting pre-CERT Charges/Coding Visit Charges Inpatient E&M: 91384 Subs Hosp L2
[2021-03-25 09:46] LABS: Anion Gap 6 (5-15); BUN 32 mg/dL (7-18); BUN/Creat Ratio 20.5 RATIO (10-20); Calcium,Total 8.7 mg/dL (8.5-10.1); Chloride 92 mmol/L (98-107); Creatinine, Serum 1.56 mg/dL (0.70-1.30); EST Glomerular Filtration Rate 45 mL/min (>60); Est Glom Filt Rate - Afr Amer 55 mL/min (>60); Estimated Creatinine Clearance 39.38 ml/min; Glucose 143 mg/dL (74-106); Potassium 4.3 mmol/L (3.5-5.1); Sodium Level 126 mmol/L (136-145)
[2021-03-25] MEDS: Docusate Sodium 100 MG Capsule PO ×2 (10:31→22:50)
[2021-03-25] MEDS: APIXABAN 2.5 MG TABLET PO ×2 (10:31→22:50)
[2021-03-25] MEDS: Vitamin B Comp W-C Capsule 1 CAP PO (10:32)
[2021-03-25] MEDS: Metoprolol(XL)Succ 25 MG Tablet PO (10:32)
[2021-03-25] MEDS: Escitalopram Oxalate 10 MG Tablet 5 MG PO (10:32)
[2021-03-25] MEDS: Cholecalciferol (VIT D3) 25 MCG TABLET (1,000 UNITS) 50 MCG PO (10:33)
[2021-03-25] MEDS: 0.9% Normal Saline 1,000 ML 70 ML IV (14:00)
[2021-03-25] MEDS: Tamsulosin HCl 0.4 MG Capsule PO (17:14)
[2021-03-25] MEDS: Pantoprazole Sodium 40 MG Tablet PO (17:14)
[2021-03-25 18:10] LABS: Anion Gap 8 (5-15); BUN 34 mg/dL (7-18); BUN/Creat Ratio 23.9 RATIO (10-20); Calcium,Total 8.5 mg/dL (8.5-10.1); Chloride 93 mmol/L (98-107); Creatinine, Serum 1.42 mg/dL (0.70-1.30); EST Glomerular Filtration Rate 51 mL/min (>60); Est Glom Filt Rate - Afr Amer 61 mL/min (>60); Estimated Creatinine Clearance 43.26 ml/min; Glucose 148 mg/dL (74-106); Potassium 4.3 mmol/L (3.5-5.1); Sodium Level 125 mmol/L (136-145)
[2021-03-25] MEDS: traMADol 50 MG Tablet PO (19:33)
[2021-03-25] MEDS: DiphenhydrAMINE 25 MG Capsule PO (22:50)
[2021-03-25] MEDS: Atorvastatin Calcium 40 MG Tablet PO (22:50)
[2021-03-25 23:18] LABS: Sodium Level 127 mmol/L (136-145); Thyroid Stim Hormone (TSH) 0.95 uIU/mL (0.358-3.74)
[2021-03-25 23:24] LABS: Urine Sodium 9 mmol/L (Not Establ.)
[2021-03-26] VITALS (7 sets, daily range): BP systolic 112–163; BP diastolic 61–91; PULSE 87–99; RESP 18; TEMP 36.5–37.3; O2SAT 92–99
--- NOTE | 2021-03-26 02:15 | PCS.PANDOC ---
PANDEMIC DOCUMENTATION INITIATED: Date: 03/25/2021 Time: 1900
[2021-03-26] MEDS: 0.9% Saline Lock 10 ML Syringe IV ×2 (03:01→09:03)
[2021-03-26] MEDS: Morphine 2 MG/ML Syringe IV (03:01)
[2021-03-26] MEDS: 0.9% Normal Saline 1,000 ML 70 ML IV (03:08)
[2021-03-26 03:32] LABS: Absolute Lymphocyte Count 1.45 X10^3/uL (0.83-4.51); Absolute Neutrophil Count 10.1 X10^3/uL (2.0-7.7); Basophil# 0.02 X10^3/uL; Basophil% 0.1 % (0-1); Eosinophil# 0.06 X10^3/uL; Eosinophils% 0.4 % (0-5); Hematocrit 26.8 % (40-54); Hemoglobin 9.4 g/dL (13.0-16.5); Lymphocyte # 1.45 X10^3/ul (0.83-4.51); Lymphocyte % 10.7 % (19-41); Mean Corp Hgb Conc 35.1 g/dL (32-36); Mean Corpuscular Volume 91.2 fL (80-94); Monocyte% 13.3 % (0-10); NRBC Flagged by Analyzer 0 % (0-5); Neutrophil # 10.11 X10^3/uL (2.7-7.7); Neutrophil % 74.8 % (47-70); POSITIVE DIFFERENTIAL YES; Platelet Count 153 K/mm3 (150-450); RBC Distribution Width CV 13.8 % (11.6-14.6); RBC Distribution Width SD 45.6 fl (35.1-43.9); Red Blood Count 2.94 M/mm3 (4.6-6.2); White Blood Count 13.5 K/mm3 (4.4-11.0)
[2021-03-26 03:42] LABS: Differential Indicated SCAN CRITERIA MET
[2021-03-26 03:46] LABS: Sodium Level 128 mmol/L (136-145)
[2021-03-26 04:08] LABS: Osmolality, Urine 192 mOsm/KG
[2021-03-26 04:09] LABS: Osmolality, Serum 279 mOsm/KG (280-301)
[2021-03-26 04:30] LABS: Differential Comment SCANNED
[2021-03-26] MEDS: Acetaminophen 500 MG Tablet 1000 MG PO ×2 (05:45→14:42)
[2021-03-26 08:32] LABS: Anion Gap 6 (5-15); BUN 27 mg/dL (7-18); BUN/Creat Ratio 22.9 RATIO (10-20); Calcium,Total 8.5 mg/dL (8.5-10.1); Chloride 98 mmol/L (98-107); Creatinine, Serum 1.18 mg/dL (0.70-1.30); EST Glomerular Filtration Rate 63 mL/min (>60); Est Glom Filt Rate - Afr Amer 76 mL/min (>60); Estimated Creatinine Clearance 52.06 ml/min; Glucose 117 mg/dL (74-106); Potassium 4.7 mmol/L (3.5-5.1); Sodium Level 131 mmol/L (136-145)
[2021-03-26] MEDS: Multivitamins,Therapeutic Tablet 1 TABLET PO (09:02)
[2021-03-26] MEDS: Docusate Sodium 100 MG Capsule PO (09:02)
[2021-03-26] MEDS: traMADol 50 MG Tablet PO ×2 (09:02→16:04)
[2021-03-26] MEDS: Vitamin B Comp W-C Capsule 1 CAP PO (09:02)
[2021-03-26] MEDS: Escitalopram Oxalate 10 MG Tablet 5 MG PO (09:02)
[2021-03-26] MEDS: Cholecalciferol (VIT D3) 25 MCG TABLET (1,000 UNITS) 50 MCG PO (09:02)
[2021-03-26] MEDS: Metoprolol(XL)Succ 25 MG Tablet PO (09:02)
[2021-03-26] MEDS: APIXABAN 2.5 MG TABLET PO (09:03)
--- NOTE | 2021-03-26 09:24 | PN.HOSP_ITS ---
Subjective Subjective Patient seen and examined. Patient sitting in chair no distress noted. Patient described on working with PT and states that he is having increased pain following physical therapy. Patient is very forgetful and forgot that he was going to TCU upon discharge and not home due to need for increased therapy. Patient is amenable to going to TCU just forgets. Objective Data Objective Data Vital Signs: Vital Signs Temp Pulse Resp BP Pulse Ox 97.8 F 90 18 112/91 H 94 03/26/21 08:56 03/26/21 09:02 03/26/21 08:56 03/26/21 08:56 03/26/21 08:56 Oxygen Flow Rate (L/min) 2 Oxygen Delivery Method Room Air Weight: 218 lb 4.122 oz Body Mass Index (BMI) 29.6 Intake & Output: Intake and Output for Last 24 Hours 03/24/21 03/25/21 03/26/21 23:59 23:59 23:59 Intake Total 1750 / 1850 3122.5 / 3122.5 1219.33 / 1219.33 Output Total 1150 / 1150 1900 / 1900 650 / 650 Balance 600 / 700 1222.5 / 1222.5 569.33 / 569.33 Lab / Micro Data Result Diagrams: 03/26/21 03:21 03/26/21 07:37 Labs: Laboratory Results - last 24 hr 03/25/21 09:15: Sodium 126 L, Potassium 4.3, Chloride 92 L, Carbon Dioxide 28.0, Anion Gap 6, BUN 32 H, Creatinine 1.56 H, Estim Creat Clear Calc 39.38, Est GFR (MDRD) Af Amer 55 L, Est GFR (MDRD) Non-Af 45 L, BUN/Creatinine Ratio 20.5 H, Glucose 143 H, Calcium 8.7 03/25/21 17:45: Sodium 125 L, Potassium 4.3, Chloride 93 L, Carbon Dioxide 24.0, Anion Gap 8, BUN 34 H, Creatinine 1.42 H, Estim Creat Clear Calc 43.26, Est GFR (MDRD) Af Amer 61, Est GFR (MDRD) Non-Af 51 L, BUN/Creatinine Ratio 23.9 H, Glucose 148 H, Calcium 8.5 03/25/21 22:40: Urine Osmolality 192, Ur Random Sodium 9 03/25/21 22:45: Sodium 127 L, TSH 0.95 03/26/21 03:21: WBC 13.5 H, RBC 2.94 L, Hgb 9.4 L, Hct 26.8 L, MCV 91.2, MCH 32.0, MCHC 35.1, RDW Std Deviation 45.6 H, RDW Coeff of Josh 13.8, Plt Count 153, MPV 9.0, Immature Gran % (Auto) 0.700, Neut % (Auto) 74.8 H, Lymph % (Auto) 10.7 L, [place] % (Auto) 13.3 H, Eos % (Auto) 0.4, Baso % (Auto) 0.1, Absolute Neuts (auto) 10.1 H, Absolute Lymphs (auto) 1.45, Nucleated RBC % 0, Differential C omment SCANNED, Diff Path Review August03/26/21 03:21: Sodium 128 L 03/26/21 03:21: Serum Osmolality 279 L 03/26/21 03:21: Cortisol 25.80 H 03/26/21 07:37: Sodium 131 L, Potassium 4.7, Chloride 98, Carbon Dioxide 27.0, Anion Gap 6, BUN 27 H, Creatinine 1.18, Estim Creat Clear Calc 52.06, Est GFR (MDRD) Af Amer 76, Est GFR (MDRD) Non-Af 63, BUN/Creatinine Ratio 22.9 H, Glucose 117 H, Calcium 8.5 Micro: Microbiology 03/22/21 17:28 Nasal Secretion SARS-CoV-2 Antigen (Rapid) - Final Physical Exam Narrative No acute distress and afebrile. Const alert and no apparent distress General Appearance: cooperative Orientation / Consciousness: confused Exam Limitations: no limitations Nutritional Appearance: overweight HEENT normocephalic, head/scalp atraumatic and moist oral mucous membranes Eyes conjunctivae normal and no scleral icterus Neck no lymphadenopathy and supple General: trachea midline Resp normal respiratory effort, normal air movement and clear to auscultation bilaterally Effort and Inspection: able to speak in complete sentences and symmetric chest movement Cardio regular rate, regular rhythm, S1 normal heart sound and S2 normal heart sound GI normal to inspection, nondistended, normoactive bowel sounds, soft to palpation and non-tender Extremity normal to inspection, full ROM and no clubbing, cyanosis or edema Extremity Narrative: Left hip postoperative bandage in place with proximal serosanguineous drainage on bandage that has extended but not sleep through the external bandage Skin no rashes or lesions noted, no wounds and skin turgor normal Neuro moves all extremities, no focal motor deficits and no sensory deficits noted Neuro Narrative: Moves all extremities but limited on the left lower extremity secondary to recent surgery and pain, mild confusion Sensorium / Orientation: awake and alert Speech: speech normal Psych cooperative and affect normal Assessment & Plan Assessment/Plan (1) Hyponatremia: (2) Status post-operative repair of closed fracture of left hip: PLAN: 1. Closed intertrochanteric fracture of the left hip -Postop day 3 status post left hip trochanteric femoral nailing -Continue Eliquis 2.5 mg twice daily x3 weeks -Patient will follow up with orthopedic surgeon in 2 weeks for staple removal -Plan for patient to discharge to TCU for ongoing physical therapy needs -Dressing may be removed at 72 hours post op and ok to shower at that time -Continue pain management per ortho 2. Hyponatremia -Patient sodium level 128 today, suspect dehydration following surgery -Will repeat BMP at 1200 -Continue NS 70 ml/hr -Urine sodium 9, urine osmolality 192, TSH 1.95 cortisol 25.8 3. RAMON -Resolved, creatinine 1.18 -Daily BMP ordered 4. CAD -Continue statin -Aspirin held at this time 5. Hypertension -Vital signs per protocol, stable -Continue beta-ignacio 6. COPD -Stable -Pulse ox 93% on room air currently Discharge planning-awaiting pre-CERT for patient to go to TCU DVT prophylaxis-Eliquis This patient was seen by Lindy Mccallum NP-C under the supervision of Dr. Berry.
--- NOTE | 2021-03-26 10:47 | CASEMGMT ---
Addendum entered by Marie Seymour 03/26/21 14:52: SW in to speak with pt. Pt's is present at [facility]. SW updated pt and pt's that approval for TCU has been obtained, pt to discharge to TCU today. Pt and Pt's state understanding. Plan: TCU skilled today Addendum entered by Marie Seymour 03/26/21 12:18: SW received call from [facility] with TCU stating pre-cert has been obtained and pt can discharge to TCU today. SW updated physician and REAL ESTATE ASSISTANT. Plan: TCU today Original Note: Social Work Note SW updated that pre-cert is still pending for TCU. Plan: TCU pending pre-cert Marie Seymour EXERCISE PHYSIOLOGIST CERTIFIED, [employer]
[2021-03-26 12:39] LABS: Anion Gap 10 (5-15); BUN 26 mg/dL (7-18); BUN/Creat Ratio 19.4 RATIO (10-20); Calcium,Total 8.7 mg/dL (8.5-10.1); Chloride 97 mmol/L (98-107); Creatinine, Serum 1.34 mg/dL (0.70-1.30); EST Glomerular Filtration Rate 54 mL/min (>60); Est Glom Filt Rate - Afr Amer 65 mL/min (>60); Estimated Creatinine Clearance 45.85 ml/min; Glucose 156 mg/dL (74-106); Potassium 4.6 mmol/L (3.5-5.1); Sodium Level 131 mmol/L (136-145)
--- NOTE | 2021-03-26 12:53 | PCM.TXEXTCAR ---
Documented by User: REED Montaño 03/26/21 13:06 Diet 03/23/21 15:28 Diet: Regular - General Is pt able to select menu?: Yes Routine Orders/Code Status Enema Type: Fleetz Enema Frequency: Daily PRN Suppository Type: Dulcolax 10mg Suppository Frequency: Daily PRN O2 Frequency: PRN Routine Lab Work: BMP (2 days) Code Status: Full Code Wound(s) LEFT HIP: Wound Type: Surgical Incision upper thigh: Wound Type: skin tear from tape Therapies Weight Bearing: Weight bearing as tolerated Extremity Affected:: Left Lower Physical Therapy: Eval and Treat Occupational Therapy: Eval and Treat Problem/Diagnosis (1) Hyponatremia: Status: Acute (2) Status post-operative repair of closed fracture of left hip: Status: Acute Allergies/Procedures Done in Hospital Allergies Penicillins Allergy (Verified 03/22/21 14:40) Hives Procedures: EKG and - (Closed intertrochanteric fracture of left hip) Type of Care/Length of Stay Estimated LOS: Convalescent Care Less Than 30 days Type of Care Needed: Skilled Rehab Potential: Good Prognosis: Good Additional Orders/Day of Discharge Day of Discharge: 03/26/21 Dietary and Speech Recommendations Dietitian Recommendations/Changes: Advance diet as tolerated to Cardiac; ONS as needed if PO established inadequate at meals. Follow Up Care Please follow up with your Primary Care Physician in: [place] Please Follow Up With: 2 weeks Discharge Plan Admission Admit Date/Time: 03/22/21 17:56 Primary Reason for Your Visit: Left femur fracture with repair Attending Provider: Natalie Berry Primary Care Provider: Carlitos King Consulting Providers: Marco Verdin Discharge Orders/Prescriptions Prescriptions: New acetaminophen [Tylenol] 325 mg Tablet 650 mg PO Q6H PRN PRN (Reason: Pain Score 1-10/Temp > 100.7 F) Qty: 0 RF: 0 tramadol 50 mg Tablet 50 mg PO Q6H PRN PRN (Reason: Pain Score 4-10) Qty: 0 RF: 0 acetaminophen 500 mg Tablet 500 - 1,000 mg PO QHS PRN (Reason: Sleep) Qty: 0 RF: 0 tamsulosin 0.4 mg Capsule 0.4 mg PO DAILY@1730 Qty: 0 RF: 0 diphenhydramine HCl [Banophen] 25 mg Capsule 25 - 50 mg PO QHS PRN (Reason: Sleep) Qty: 0 RF: 0 Eliquis 2.5 mg Tablet 2.5 mg PO BID Qty: 0 RF: 0 Continued escitalopram oxalate [Lexapro] 5 mg tablet 5 mg PO DAILY RF: 0 multivitamin Tablet 1 tab PO DAILY RF: 0 nitroglycerin 0.4 mg tablet, sublingual 0.4 mg SUBLINGUAL Q5-15M PRN (Reason: chest pain) Qty: 25 RF: 3 aspirin 81 MG tablet,chewable 81 mg PO QHS RF: 0 lansoprazole 30 mg capsule,delayed release(DR/EC) 30 mg PO DAILY PRN PRN (Reason: acid reflux) RF: 0 docusate sodium 100 MG capsule 100 mg PO BID RF: 0 vitamin B complex Capsule 1 cap PO DAILY RF: 0 atorvastatin 40 mg tablet 40 mg PO QHS Qty: 90 RF: 3 metoprolol succinate 25 mg tablet extended release 24 hr 25 mg PO DAILY Qty: 90 RF: 3 Discontinued diphenhydramine-acetaminophen [Acetaminophen PM] 25-500 mg Tablet 1 - 2 tab PO QHS PRN (Reason: Sleep) RF: 0 Referrals / Follow Up: Carlitos King MD [Primary Care Provider] - Marco Verdin DO [STAFF PHYSICIAN] - 04/06/21 (for suture removal) Disposition Disposition (needs filled in before D/C Order can be placed): Residential Facility Documented by User: Dr. Natalie Berry DO 03/26/21 15:14 Allergies/Procedures Done in Hospital Allergies Penicillins Allergy (Verified 03/22/21 14:40) Hives Discharge Plan Admission Admit Date/Time: 03/22/21 17:56 Primary Reason for Your Visit: Left femur fracture with repair Attending Provider: Natalie Berry Primary Care Provider: Carlitos King Consulting Providers: Marco Verdin Discharge Orders/Prescriptions Prescriptions: New acetaminophen [Tylenol] 325 mg Tablet 650 mg PO Q6H PRN PRN (Reason: Pain Score 1-10/Temp > 100.7 F) Qty: 0 RF: 0 tramadol 50 mg Tablet 50 mg PO Q6H PRN PRN (Reason: Pain Score 4-10) Qty: 0 RF: 0 acetaminophen 500 mg Tablet 500 - 1,000 mg PO QHS PRN (Reason: Sleep) Qty: 0 RF: 0 tamsulosin 0.4 mg Capsule 0.4 mg PO DAILY@1730 Qty: 0 RF: 0 diphenhydramine HCl [Banophen] 25 mg Capsule 25 - 50 mg PO QHS PRN (Reason: Sleep) Qty: 0 RF: 0 Eliquis 2.5 mg Tablet 2.5 mg PO BID Qty: 0 RF: 0 Continued escitalopram oxalate [Lexapro] 5 mg tablet 5 mg PO DAILY RF: 0 multivitamin Tablet 1 tab PO DAILY RF: 0 nitroglycerin 0.4 mg tablet, sublingual 0.4 mg SUBLINGUAL Q5-15M PRN (Reason: chest pain) Qty: 25 RF: 3 aspirin 81 MG tablet,chewable 81 mg PO QHS RF: 0 lansoprazole 30 mg capsule,delayed release(DR/EC) 30 mg PO DAILY PRN PRN (Reason: acid reflux) RF: 0 docusate sodium 100 MG capsule 100 mg PO BID RF: 0 vitamin B complex Capsule 1 cap PO DAILY RF: 0 atorvastatin 40 mg tablet 40 mg PO QHS Qty: 90 RF: 3 metoprolol succinate 25 mg tablet extended release 24 hr 25 mg PO DAILY Qty: 90 RF: 3 Discontinued diphenhydramine-acetaminophen [Acetaminophen PM] 25-500 mg Tablet 1 - 2 tab PO QHS PRN (Reason: Sleep) RF: 0 Referrals / Follow Up: Carlitos King MD [Primary Care Provider] - Marco Verdin DO [STAFF PHYSICIAN] - 04/06/21 (for suture removal) Disposition Disposition (needs filled in before D/C Order can be placed): Residential Facility
--- NOTE | 2021-03-26 13:06 | PCM.DC.SUM ---
Documented by User: REED Montaño 03/26/21 13:30 Providers Date of Admission: 03/22/21 Primary Care Physician: Dr. Carlitos King MD Consultations 03/22/21 18:57 Consult: Orthopedics Routine Consulting Provider: Marco Verdin Reason for Consult: left hip fxr EMERGENT Consult: No MD Notified: Yes Date Notified: 03/22/21 Time Notified: 18:01 Method of Notification: Verbal Reason For Visit: INTERTROCHANTERIC FRACTURE LEFT HIP Diagnosis Discharge Diagnosis (1) Hyponatremia: Status: Acute Code(s): E87.1 - Hypo-osmolality and hyponatremia (2) Status post-operative repair of closed fracture of left hip: Status: Acute Code(s): Z98.890 - Other specified postprocedural states; Z87.81 - Personal history of (healed) traumatic fracture Medications at Discharge Home Medications aspirin 81 mg PO QHS 04/10/17 escitalopram oxalate 5 mg tablet 5 mg PO DAILY 10/11/17 lansoprazole 30 mg capsule,delayed release 30 mg PO DAILY PRN PRN cap 10/11/17 docusate sodium 100 mg PO BID 03/18/20 multivitamin 1 tab PO DAILY 05/20/20 nitroglycerin 0.4 mg sublingual tablet 0.4 mg SUBLINGUAL Q5-15M PRN #25 tab 11/26/20 atorvastatin 40 mg tablet 40 mg PO QHS #90 tab 12/07/20 metoprolol succinate 25 mg tablet,extended release 24 hr 25 mg PO DAILY #90 tab 12/07/20 vitamin B complex 1 cap PO DAILY 03/22/21 acetaminophen 500 - 1,000 mg PO QHS PRN #0 tab 03/26/21 acetaminophen [Tylenol] 650 mg PO Q6H PRN PRN #0 tab 03/26/21 apixaban [Eliquis] 2.5 mg PO BID #0 tab 03/26/21 diphenhydramine HCl [Banophen] 25 - 50 mg PO QHS PRN #0 cap 03/26/21 tamsulosin 0.4 mg PO DAILY@1730 #0 cap 03/26/21 tramadol 50 mg PO Q6H PRN PRN #0 tab 03/26/21 Hospital Course Operations total hip replacement Procedures EKG Summary of Care Provided Minutes Spent on Discharge: 35 Hospital Course: Patient is a 85-year-old male who initially presented for left hip pain following a fall. Patient underwent cephalomedullary fixation of the left hip. Patient was evaluated and followed by PT and OT throughout his stay. Recommendations were for patient to continue PT and OT at a skilled facility due to decreased mobility. Patient is stated that this was a concern even prior to fall as patient has been shuffling more. Patient will be transferred to TCU for ongoing PT and OT. Physical Exam Narrative No acute distress and afebrile. Const alert and no apparent distress General Appearance: cooperative Orientation / Consciousness: confused Exam Limitations: no limitations Nutritional Appearance: overweight HEENT normocephalic, head/scalp atraumatic and moist oral mucous membranes Eyes conjunctivae normal and no scleral icterus Neck no lymphadenopathy and supple General: trachea midline Resp normal respiratory effort, normal air movement and clear to auscultation bilaterally Effort and Inspection: able to speak in complete sentences and symmetric chest movement Auscultation: Negative for crackles, rales, rhonchi or wheezes Cardio regular rate, regular rhythm, S1 normal heart sound and S2 normal heart sound GI normal to inspection, nondistended, normoactive bowel sounds, soft to palpation and non-tender Extremity normal to inspection, full ROM and no clubbing, cyanosis or edema Extremity Narrative: Left hip postoperative bandage in place with proximal serosanguineous drainage on bandage that has extended but not seeped through the external bandage Skin no rashes or lesions noted, no wounds and skin turgor normal Neuro moves all extremities, no focal motor deficits and no sensory deficits noted Neuro Narrative: Moves all extremities but limited on the left lower extremity secondary to recent surgery and pain, mild confusion Sensorium / Orientation: awake and alert Speech: speech normal Psych cooperative and affect normal Weight / BMI Weight Weight: 218 lb 4.122 oz Body Mass Index (BMI) 29.6 ABG / Lab / Microbiology Data Result Diagrams: 03/26/21 03:21 03/26/21 12:03 Laboratory: Laboratory Results - last 24 hr 03/25/21 17:45: Sodium 125 L, Potassium 4.3, Chloride 93 L, Carbon Dioxide 24.0, Anion Gap 8, BUN 34 H, Creatinine 1.42 H, Estim Creat Clear Calc 43.26, Est GFR (MDRD) Af Amer 61, Est GFR (MDRD) Non-Af 51 L, BUN/Creatinine Ratio 23.9 H, Glucose 148 H, Calcium 8.5 03/25/21 22:40: Urine Osmolality 192, Ur Random Sodium 9 03/25/21 22:45: Sodium 127 L, TSH 0.95 03/26/21 03:21: WBC 13.5 H, RBC 2.94 L, Hgb 9.4 L, Hct 26.8 L, MCV 91.2, MCH 32.0, MCHC 35.1, RDW Std Deviation 45.6 H, RDW Coeff of Josh 13.8, Plt Count 153, MPV 9.0, Immature Gran % (Auto) 0.700, Neut % (Auto) 74.8 H, Lymph % (Auto) 10.7 L, [place] % (Auto) 13.3 H, Eos % (Auto) 0.4, Baso % (Auto) 0.1, Absolute Neuts (auto) 10.1 H, Absolute Lymphs (auto) 1.45, Nucleated RBC % 0, Differential Comment SCANNED, Diff Path Review August03/26/21 03:21: Sodium 128 L 03/26/21 03:21: Serum Osmolality 279 L 03/26/21 03:21: Cortisol 25.80 H 03/26/21 07:37: Sodium 131 L, Potassium 4.7, Chloride 98, Carbon Dioxide 27.0, Anion Gap 6, BUN 27 H, Creatinine 1.18, Estim Creat Clear Calc 52.06, Est GFR (MDRD) Af Amer 76, Est GFR (MDRD) Non-Af 63, BUN/Creatinine Ratio 22.9 H, Glucose 117 H, Calcium 8.5 03/26/21 12:03: Sodium 131 L, Potassium 4.6, Chloride 97 L, Carbon Dioxide 24.0, Anion Gap 10, BUN 26 H, Creatinine 1.34 H, Estim Creat Clear Calc 45.85, Est GFR (MDRD) Af Amer 65, Est GFR (MDRD) Non-Af 54 L, BUN/Creatinine Ratio 19.4, Glucose 156 H, Calcium 8.7 Microbiology: Microbiology 03/22/21 17:28 Nasal Secretion SARS-CoV-2 Antigen (Rapid) - Final D/C Instructions Please Follow Up With: 2 weeks Meaningful Use Info Meaningful Use Diagnoses (Choose all that apply): None applicable Discharge Plan Admission Admit Date/Time: 03/22/21 17:56 Primary Reason for Your Visit: Left femur fracture with repair Attending Provider: Natalie Berry Primary Care Provider: Carlitos King Consulting Providers: Marco Verdin Discharge Orders/Prescriptions Prescriptions: New acetaminophen [Tylenol] 325 mg Tablet 650 mg PO Q6H PRN PRN (Reason: Pain Score 1-10/Temp > 100.7 F) Qty: 0 RF: 0 tramadol 50 mg Tablet 50 mg PO Q6H PRN PRN (Reason: Pain Score 4-10) Qty: 0 RF: 0 acetaminophen 500 mg Tablet 500 - 1,000 mg PO QHS PRN (Reason: Sleep) Qty: 0 RF: 0 tamsulosin 0.4 mg Capsule 0.4 mg PO DAILY@1730 Qty: 0 RF: 0 diphenhydramine HCl [Banophen] 25 mg Capsule 25 - 50 mg PO QHS PRN (Reason: Sleep) Qty: 0 RF: 0 Eliquis 2.5 mg Tablet 2.5 mg PO BID Qty: 0 RF: 0 Continued escitalopram oxalate [Lexapro] 5 mg tablet 5 mg PO DAILY RF: 0 multivitamin Tablet 1 tab PO DAILY RF: 0 nitroglycerin 0.4 mg tablet, sublingual 0.4 mg SUBLINGUAL Q5-15M PRN (Reason: chest pain) Qty: 25 RF: 3 aspirin 81 MG tablet,chewable 81 mg PO QHS RF: 0 lansoprazole 30 mg capsule,delayed release(DR/EC) 30 mg PO DAILY PRN PRN (Reason: acid reflux) RF: 0 docusate sodium 100 MG capsule 100 mg PO BID RF: 0 vitamin B complex Capsule 1 cap PO DAILY RF: 0 atorvastatin 40 mg tablet 40 mg PO QHS Qty: 90 RF: 3 metoprolol succinate 25 mg tablet extended release 24 hr 25 mg PO DAILY Qty: 90 RF: 3 Discontinued diphenhydramine-acetaminophen [Acetaminophen PM] 25-500 mg Tablet 1 - 2 tab PO QHS PRN (Reason: Sleep) RF: 0 Referrals / Follow Up: Carlitos King MD [Primary Care Provider] - Marco Verdin DO [STAFF PHYSICIAN] - 04/06/21 (for suture removal) Disposition Disposition (needs filled in before D/C Order can be placed): [facility] Documented by User: Dr. Natalie Berry DO 03/26/21 14:59 Providers Date of Admission: 03/22/21 Reason For Visit: INTERTROCHANTERIC FRACTURE LEFT HIP Medications at Discharge Home Medications aspirin 81 mg PO QHS 04/10/17 escitalopram oxalate 5 mg tablet 5 mg PO DAILY 10/11/17 lansoprazole 30 mg capsule,delayed release 30 mg PO DAILY PRN PRN cap 10/11/17 docusate sodium 100 mg PO BID 03/18/20 multivitamin 1 tab PO DAILY 05/20/20 nitroglycerin 0.4 mg sublingual tablet 0.4 mg SUBLINGUAL Q5-15M PRN #25 tab 11/26/20 atorvastatin 40 mg tablet 40 mg PO QHS #90 tab 12/07/20 metoprolol succinate 25 mg tablet,extended release 24 hr 25 mg PO DAILY #90 tab 12/07/20 vitamin B complex 1 cap PO DAILY 03/22/21 acetaminophen 500 - 1,000 mg PO QHS PRN #0 tab 03/26/21 acetaminophen [Tylenol] 650 mg PO Q6H PRN PRN #0 tab 03/26/21 apixaban [Eliquis] 2.5 mg PO BID #0 tab 03/26/21 diphenhydramine HCl [Banophen] 25 - 50 mg PO QHS PRN #0 cap 03/26/21 tamsulosin 0.4 mg PO DAILY@1730 #0 cap 03/26/21 tramadol 50 mg PO Q6H PRN PRN #0 tab 03/26/21 Hospital Course Operations - (Cephalomedullary nail left hip) Summary of Care Provided Minutes Spent on Discharge: 36 Hospital Course: This patient was seen in conjunction with Lindy Dumont NP. The following is representation of my independent history and physical examination. Please see below for addendum the above. Mr. Hutosn is an 85-year-old white male presented to the emergency department [facility] on 03/22/2021 complaining of left hip pain. He was evidently outside blowing leaves in his yard and lost balance and fell backwards landing on his left hip. At that time he developed acute hip pain but denied any other injuries at that time. He came to the emergency department secondary to his hip pain and was found to have a nondisplaced left intertrochanteric fracture. Dr. Khan was contacted from Ortho surgery and recommended the patient be made n.p.o. after midnight for surgical intervention on 03/23/2021. Per discussion with the the patient does have significant balance issues at home and he is to be using a cane on a regular basis but conveniently forgets to have it available on a regular basis. This is not his first fall. Patient was taken to the operating room on 03/23/2021 where a cephalomedullary nail was placed. The patient did well overall with the surgery but had difficulties with rehab following due to continued pain. He needed significant assistance with both physical therapy and occupational therapy and placement for continued rehab was recommended. Both the patient and the agreed to placement in TCU. Precertification was initiated and obtained on 03/26/2021. He did develop some RAMON and hyponatremia. Work-up revealed hypovolemic hyponatremia and his sodium levels did improve with IV hydration. His renal function improved as well but seems to fluctuate somewhat at baseline. His urine sodium was noted to be 9. His TSH and cortisol levels were normal and his serum osmolality was low. As noted above he did respond well with regards to his sodium to IV hydration. I would recommend a follow-up BMP be obtained on the a.m. of 03/27/2021 to ensure stability. It was recommended that he continue Eliquis 2.5 mg twice daily for the next 3 weeks for postoperative D VT prophylaxis and then he may discontinue this. He will need follow-up with orthopedic surgery as noted in the discharge papers. He is okay to have dressing removed and shower with antibacterial soap and pat the surgical incision dry with new dressing to be placed over the current incisions and not to submerge the area for 3 weeks. We will continue his pain medication for management of his ongoing pain. He was discharged to TCU in stable condition on 03/26/2021 Discharge diagnoses: Left hip closed intertrochanteric fracture status post cephalomedullary nail Acute normocytic anemia Acute leukocytosis-resolved Acute hyponatremia-improved RAMON-improved Frequent falls CAD status post CABG 2000 COPD Hypertension Chronic right bundle branch block Hyperlipidemia History of TIA Bilateral carotid artery stenosis Aortic root dilation Depression GERD ? baseline memory impairment Physical Exam Narrative No acute distress and afebrile. Const alert, oriented x3 and no apparent distress Constitutional Narrative: Overweight white male sitting up in the chair at the bedside, patient is alert and oriented x3 today General Appearance: cooperative Orientation / Consciousness: confused Exam Limitations: no limitations Nutritional Appearance: overweight HEENT normocephalic, head/scalp atraumatic and moist oral mucous membranes Eyes PERRL, EOMs intact bilaterally, conjunctivae normal and no scleral icterus Eyes Narrative: Conjunctive TEVAR normal, no scleral icterus Neck no lymphadenopathy, supple, no JVD and thyroid normal General: trachea midline Resp normal respiratory effort, normal air movement and clear to auscultation bilaterally Effort and Inspection: able to speak in complete sentences and symmetric chest movement Auscultation: Negative for crackles, rales, rhonchi or wheezes Cardio regular rate, regular rhythm, S1 normal heart sound, S2 normal heart sound, no murmurs, no rub, no gallops and peripheral pulses 2+ throughout GI normal to inspection, nondistended, normoactive bowel sounds, soft to palpation, non-tender and non-distended Extremity normal to inspection, full ROM and no clubbing, cyanosis or edema Extremity Narrative: Left hip postoperative bandage in place with proximal serosanguineous drainage on bandage that has extended but not seeped through the external bandage Skin no rashes or lesions noted, no wounds and skin turgor normal General Skin Exam: no breakdown Rashes: no rashes Neuro CN's II-XII intact bilaterally, moves all extremities, no focal motor deficits and no sensory deficits noted Neuro Narrative: Moves all extremities but limited on the left lower extremity secondary to recent surgery and pain Sensorium / Orientation: awake and alert Speech: speech normal Psych cooperative and affect normal ABG / Lab / Microbiology Data Result Diagrams: 03/26/21 03:21 03/26/21 12:03 Discharge Plan Admission Admit Date/Time: 03/22/21 17:56 Primary Reason for Your Visit: Left femur fracture with repair Attending Provider: Natalie Berry Primary Care Provider: Carlitos Kign Consulting Providers: Marco Verdin Discharge Orders/Prescriptions Prescriptions: New acetaminophen [Tylenol] 325 mg Tablet 650 mg PO Q6H PRN PRN (Reason: Pain Score 1-10/Temp > 100.7 F) Qty: 0 RF: 0 tramadol 50 mg Tablet 50 mg PO Q6H PRN PRN (Reason: Pain Score 4-10) Qty: 0 RF: 0 acetaminophen 500 mg Tablet 500 - 1,000 mg PO QHS PRN (Reason: Sleep) Qty: 0 RF: 0 tamsulosin 0.4 mg Capsule 0.4 mg PO DAILY@1730 Qty: 0 RF: 0 diphenhydramine HCl [Banophen] 25 mg Capsule 25 - 50 mg PO QHS PRN (Reason: Sleep) Qty: 0 RF: 0 Eliquis 2.5 mg Tablet 2.5 mg PO BID Qty: 0 RF: 0 Continued escitalopram oxalate [Lexapro] 5 mg tablet 5 mg PO DAILY RF: 0 multivitamin Tablet 1 tab PO DAILY RF: 0 nitroglycerin 0.4 mg tablet, sublingual 0.4 mg SUBLINGUAL Q5-15M PRN (Reason: chest pain) Qty: 25 RF: 3 aspirin 81 MG tablet,chewable 81 mg PO QHS RF: 0 lansoprazole 30 mg capsule,delayed release(DR/EC) 30 mg PO DAILY PRN PRN (Reason: acid reflux) RF: 0 docusate sodium 100 MG capsule 100 mg PO BID RF: 0 vitamin B complex Capsule 1 cap PO DAILY RF: 0 atorvastatin 40 mg tablet 40 mg PO QHS Qty: 90 RF: 3 metoprolol succinate 25 mg tablet extended release 24 hr 25 mg PO DAILY Qty: 90 RF: 3 Discontinued diphenhydramine-acetaminophen [Acetaminophen PM] 25-500 mg Tablet 1 - 2 tab PO QHS PRN (Reason: Sleep) RF: 0 Referrals / Follow Up: Carlitos King MD [Primary Care Provider] - Marco Verdin DO [STAFF PHYSICIAN] - 04/06/21 (for suture removal) Disposition Disposition (needs filled in before D/C Order can be placed): [facility] Charges/Coding Visit Charges Inpatient E&M: 88230 SNF Disch >30 Min
[2021-03-26 15:29] LABS: Pathologist Review Reviewed
[2021-03-26 15:38] LABS: Pathologist Review Reviewed
--- NOTE | 2021-03-26 15:46 | NURSING ---
Report called to JESSENIA Hernandez in TCU
[2021-03-26] MEDS: Tamsulosin HCl 0.4 MG Capsule PO (17:26)
== END 2021-03-26 17:40 | disposition skilled nursing facility (03) | DRG 481 ==
LOC: ED 17:47 → MS3 18:21
PROVIDERS: Nurse Practitioner Family; Orthopaedic Surgery; Physician Assistant; Emergency Provider Emergency Medicine; PCP Family Medicine; Visit Provider Internal Medicine
PROC: 0QH704Z Insertion of Internal Fixation Device into Left Upper Femur, Open Approach (ICD-10-PCS; principal; 2021-03-23 09:15)
DX: S72.145A Nondisplaced intertrochanteric fracture of left femur, initial encounter for closed fracture (principal); E87.1 Hypo-osmolality and hyponatremia; N17.9 Acute kidney failure, unspecified; I25.10 Atherosclerotic heart disease of native coronary artery without angina pectoris; I10 Essential (primary) hypertension; J44.9 Chronic obstructive pulmonary disease, unspecified; K21.9 Gastro-esophageal reflux disease without esophagitis; E78.5 Hyperlipidemia, unspecified; D72.829 Elevated white blood cell count, unspecified; D64.9 Anemia, unspecified; E86.0 Dehydration; R41.0 Disorientation, unspecified; R29.6 Repeated falls; Z95.1 Presence of aortocoronary bypass graft; Z79.899 Other long term (current) drug therapy; Z87.891 Personal history of nicotine dependence; Z86.73 Personal history of transient ischemic attack (TIA), and cerebral infarction without residual deficits; W18.30XA Fall on same level, unspecified, initial encounter; Y93.H1 Activity, digging, shoveling and raking; Y92.007 Garden or yard of unspecified non-institutional (private) residence as the place of occurrence of the external cause; Y99.8 Other external cause status
CPT/HCPCS: 36415; 71045; 73502; 76000; 80048; 80053; 82306; 82533; 82962; 83930; 83935; 84295; 84300; 84443; 85025; 85610; 85730; 86850; 86900; 86901; 87426; 93005; 94640; 97116; 97162; 97166; 97530; 97535; 99251; 99285; C1713; J7030; J7120; A4216; G0463; J2405

== ENCOUNTER 2021-03-26 17:49 | Inpatient (IN) | payer MEDICARE, SELFPAY ==
[2021-03-26 17:54] VITALS: BP 142/69; PULSE 93; RESP 22; TEMP 37.2; O2SAT 91; BMI 29.6
--- NOTE | 2021-03-26 19:22 | NURSING ---
Confusion noted AEB activating call light and requesting to get in bed while actively laying in bed. When patient gently reminded that patient in bed, patient states Oh, I am?. Patient alert to person/place. Unable to state correct month or year. States month as June and year as I don't know. Reoriented to place/time. Repositioned in bed per request to promote comfort. Disorganized thinking observed. No distress observed or reported. Resps even and unlabored. Call light in reach.
[2021-03-26] MEDS: Atorvastatin Calcium 40 MG Tablet PO (19:52)
[2021-03-26] MEDS: APIXABAN 2.5 MG TABLET PO (19:52)
[2021-03-26] MEDS: Aspirin 81 MG TAB.CHEW PO (19:52)
[2021-03-26] MEDS: Docusate Sodium 100 MG Capsule PO (19:52)
--- NOTE | 2021-03-26 21:08 | PCM.HP.STD ---
HPI - General General Date of Admission: 03/26/21 HPI Narrative 03/22/2021 RANCHO MULLER, is a 85 Male who presents with left hip injury. Fell blowing leaves on driveway, unable to get up. Sharp left hip pain, worse with movement. X-ray shows left hip fracture, morphine given. Chest X-ray negative. 03/22/2021 Admit to Hospital. Prepare for surgery, Anticipate SNF on discharge. 03/23/2021 Dr. Verdin performed cephalomedullary nail fixation left hip. Ancef postoperatively. Eliquis 2.5mg twice daily x 3 weeeks for DVT prophylaxis. 03/24/2021 Pain controlled. PT/OT for SNF. 03/25/2021 Pain controlled. Normal saline IV for hyponatremia. 03/26/2021 Admit to TCU with debility, here for rehabilitation, strengthening, prior to discharge home with . [facility] Medical History Aortic root dilatation Atherosclerosis of [place] arteries of extremity with intermittent claudication Atherosclerotic heart disease of [place] coronary artery without angina pectoris Benign essential HTN Bilateral carotid artery stenosis Carotid bruit COPD (chronic obstructive pulmonary disease) Depression Fall GERD (gastroesophageal reflux disease) Hip fracture History of stress test Hyperlipidemia Insomnia Left carotid artery stenosis RBBB Right femoral fracture TIA (transient ischemic attack) Home Medications aspirin 81 mg PO QHS 04/10/17 [History Last Taken 03/21/21] escitalopram oxalate 5 mg tablet 5 mg PO DAILY 10/11/17 [History Last Taken 03/22/21] lansoprazole 30 mg capsule,delayed release 30 mg PO DAILY PRN PRN cap 10/11/17 [History Last Taken Unknown] docusate sodium 100 mg PO BID 03/18/20 [History Last Taken 03/22/21] multivitamin 1 tab PO DAILY 05/20/20 [History Last Taken 03/22/21] nitroglycerin 0.4 mg sublingual tablet 0.4 mg SUBLINGUAL Q5-15M PRN #25 tab 11/26/20 [Rx Last Taken Unknown] atorvastatin 40 mg tablet 40 mg PO QHS #90 tab 12/07/20 [Rx Last Taken 03/21/21] metoprolol succinate 25 mg tablet,extended release 24 hr 25 mg PO DAILY #90 tab 12/07/20 [Rx Last Taken 03/22/21] vitamin B complex 1 cap PO DAILY 03/22/21 [History Last Taken 03/22/21] acetaminophen 500 - 1,000 mg PO QHS PRN #0 tab 03/26/21 [Rx Last Taken Unknown] acetaminophen [Tylenol] 650 mg PO Q6H PRN PRN #0 tab 03/26/21 [Rx Last Taken Unknown] apixaban [Eliquis] 2.5 mg PO BID 03/26/21 [History Last Taken Unknown] diphenhydramine HCl [Banophen] 25 - 50 mg PO QHS PRN #0 cap 03/26/21 [Rx Last Taken Unknown] tamsulosin 0.4 mg PO DAILY@1730 03/26/21 [History Last Taken Unknown] tramadol 50 mg PO Q6H PRN PRN #0 tab 03/26/21 [Rx Last Taken Unknown] Allergy/AdvReac Type Severity Reaction Status Date / Time Penicillins Allergy Hives Verified 03/22/21 14:40 Family History Father Myocardial infarction, Onset Age: 68 Brother CAD (coronary artery disease) Myocardial infarction Hx of CABG Brother CHF (congestive heart failure) Surgical History Aortocoronary bypass status (~07/07/00) H/O cardiac catheterization History of left-sided carotid endarterectomy (~07/22/20) History of right-sided carotid endarterectomy (~09/30/20) Hx of appendectomy Social History (Updated 03/26/21 @ 21:[address] Hero Sun MD) household members: spouse Smoking Status: Former smoker alcohol intake: never substance use type: does not use ROS Constitutional Constitutional: Denies chills, fever(s) or weight gain ENT HEENT: Denies headache(s), nasal congestion or nasal discharge Cardiovascular Cardiovascular: Denies chest pain or palpitations Respiratory/Chest Respiratory/Chest: Denies cough, excessive phlegm production or shortness of breath with exertion Gastrointestinal Gastrointestinal: Denies abdominal pain, nausea or vomiting Genitourinary Genitourinary: Denies dysuria Musculoskeletal Musculoskeletal: Denies joint pain or joint swelling Integumentary Integumentary: Denies rash or wounds Neurologic Neurologic: Denies focal weakness, numbness or tingling Psychiatric Psychiatric: Denies anxiety, depression, homicidal ideation or suicidal ideation Vital Signs Vital Signs Vital Signs: 03/26/21 17:54 03/26/21 18:06 Temperature 98.9 F Temperature Source Temporal Pulse Rate 93 Pulse Rhythm Regular Respiratory Rate 22 H Respiratory Effort Normal Respiratory Depth Normal Respiratory Pattern Normal Blood Pressure 142/69 H Blood Pressure Mean 93 Blood Pressure Source Monitor Blood Pressure Position Semi-Fowlers Blood Pressure Location Right Arm Pulse Ox 91 Oxygen Delivery Method Room Air Room Air Weight Weight: 98.997 kg Body Mass Index (BMI) 29.6 Physical Exam Const alert and oriented x3 General Appearance: cooperative HEENT normocephalic Eyes PERRL and EOMs intact bilaterally Neck supple, no JVD and no carotid bruits Resp normal respiratory effort, normal air movement and clear to auscultation bilaterally Cardio regular rate and regular rhythm GI normal to inspection, nondistended, normoactive bowel sounds, non-tender and non-distended Extremity normal capillary refill General Extremity: Negative for edema Skin no rashes or lesions noted General Skin Exam: no breakdown Psych affect normal Appearance: appropriate Results Lab / Micro Data Result Diagrams: 03/27/21 06:15 03/27/21 06:15 Assessment & Plan Assessment/Plan (1) Debility: (2) Closed left hip fracture: (3) Hyponatremia: (4) Depression: (5) Gastroesophageal reflux disease: (6) Coronary artery disease: (7) Hyperlipidemia: (8) Insomnia: PLAN: 85 year old male with below past medical history hospitalized for left hip fracture, underwent left hip cephalomedullary nail fixation 03/23/[address] Verdin, postoperative course complicated by hyponatremia, admitted to TCU with debility, here for rehabilitation, strengthening, prior to discharge home with . Debility - PT/OT. Pain - Tylenol 1000mg q6h prn pain (1-3), Tramadol 50mg q6h prn pain (4-10). Bowel - Miralax 17gm daily, Senna/colace 2 tablets twice daily, Dulcolax 10mg pr daily prn. Adult immunization - Administer prevnar 13, pneumovax 23, fluzone, covid19 vaccine as appropriate. DVT prophylaxis - Eliquis 2.5mg bid thru 04/13/2021. Coronary artery disease - Metoprolol succinate 25mg daily, Aspirin 81mg daily, NTG 0.4mg SL Q5m prn. Hyperlipidemia - Atorvastatin 40mg qhs. Depression - Lexapro 5mg daily, stable chronic nursing home use, GDR not recommended. Nutrition - MVI 1 tablet daily. Insomnia - Tylenol 1000mg qhs prn, Melatonin 10mg qhs prn. GERD - Pantoprazole 40mg daily. BPH - Tamsulosin 0.4mg daily. Leg cramps - Vitamin B complex 1 capsule daily.
[2021-03-27] MEDS: traMADol 50 MG Tablet PO ×2 (06:09→16:56)
[2021-03-27] MEDS: Escitalopram Oxalate 10 MG Tablet 5 MG PO (06:10)
[2021-03-27 06:11] VITALS: BP 172/76; PULSE 89
[2021-03-27] MEDS: APIXABAN 2.5 MG TABLET PO ×2 (06:11→16:55)
[2021-03-27] MEDS: Polyethylene Glycol 3350 17 GM PACKET PO (06:11)
[2021-03-27] MEDS: Metoprolol(XL)Succ 25 MG Tablet PO (06:11)
[2021-03-27] MEDS: Senna/Docusate Sodium 1 Tablet 2 TABLET PO (06:11)
[2021-03-27] MEDS: Pantoprazole Sodium 40 MG Tablet PO (06:12)
[2021-03-27 07:17] VITALS: PULSE 78; RESP 16; O2SAT 95
[2021-03-27 07:17] LABS: Absolute Lymphocyte Count 1.24 X10^3/uL (0.83-4.51); Absolute Neutrophil Count 7.6 X10^3/uL (2.0-7.7); Basophil# 0.02 X10^3/uL; Basophil% 0.2 % (0-1); Eosinophil# 0.06 X10^3/uL; Eosinophils% 0.6 % (0-5); Hematocrit 26.9 % (40-54); Hemoglobin 9.2 g/dL (13.0-16.5); Lymphocyte # 1.24 X10^3/ul (0.83-4.51); Lymphocyte % 11.8 % (19-41); Mean Corp Hgb Conc 34.2 g/dL (32-36); Mean Corpuscular Hgb 31.9 pg (27.0-32.0); Mean Corpuscular Volume 93.4 fL (80-94); Mean Platelet Vol. 9.4 fl (6.2-12.0); Monocyte# 1.45 X10^3/uL; Monocyte% 13.8 % (0-10); NRBC Flagged by Analyzer 0.2 % (0-5); Neutrophil # 7.58 X10^3/uL (2.7-7.7); Neutrophil % 72.4 % (47-70); Platelet Count 186 K/mm3 (150-450); RBC Distribution Width CV 14.1 % (11.6-14.6); RBC Distribution Width SD 47.6 fl (35.1-43.9); Red Blood Count 2.88 M/mm3 (4.6-6.2); White Blood Count 10.5 K/mm3 (4.4-11.0)
[2021-03-27 07:42] LABS: Anion Gap 6 (5-15); BUN 23 mg/dL (7-18); BUN/Creat Ratio 21.9 RATIO (10-20); Calcium,Total 8.8 mg/dL (8.5-10.1); Chloride 103 mmol/L (98-107); Creatinine, Serum 1.05 mg/dL (0.70-1.30); EST Glomerular Filtration Rate 72 mL/min (>60); Est Glom Filt Rate - Afr Amer 87 mL/min (>60); Estimated Creatinine Clearance 58.51 ml/min; Glucose 114 mg/dL (74-106); Potassium 4.6 mmol/L (3.5-5.1); Sodium Level 136 mmol/L (136-145)
[2021-03-27] MEDS: Vitamin B Comp W-C Capsule 1 CAP PO (09:00)
[2021-03-27] MEDS: Tuberculin,Purif.prot.deriv. 50 TU/ML Vial 0.1 ML ID (10:29)
[2021-03-27] MEDS: Multivitamins,Therapeutic Tablet 1 TABLET PO (10:29)
--- NOTE | 2021-03-27 10:36 | NURSING ---
per report, pt has had false positive PPD test in past
[2021-03-27] MEDS: Acetaminophen 500 MG Tablet 1000 MG PO (11:26)
[2021-03-27 14:25] VITALS: BP 138/55; PULSE 94; RESP 18; TEMP 36.1; O2SAT 96
[2021-03-27] MEDS: Tamsulosin HCl 0.4 MG Capsule PO (16:56)
[2021-03-27] MEDS: Atorvastatin Calcium 40 MG Tablet PO (21:24)
[2021-03-28] MEDS: APIXABAN 2.5 MG TABLET PO ×2 (06:10→16:34)
[2021-03-28] MEDS: Escitalopram Oxalate 10 MG Tablet 5 MG PO (06:11)
[2021-03-28 06:12] VITALS: BP 130/87; PULSE 89
[2021-03-28] MEDS: Polyethylene Glycol 3350 17 GM PACKET PO (06:12)
[2021-03-28] MEDS: Metoprolol(XL)Succ 25 MG Tablet PO (06:12)
[2021-03-28] MEDS: Pantoprazole Sodium 40 MG Tablet PO (06:12)
[2021-03-28] MEDS: Senna/Docusate Sodium 1 Tablet 2 TABLET PO (06:12)
[2021-03-28] MEDS: Multivitamins,Therapeutic Tablet 1 TABLET PO (09:26)
[2021-03-28] MEDS: Vitamin B Comp W-C Capsule 1 CAP PO (09:27)
[2021-03-28] MEDS: Iron Polysaccharide Complex 150 MG CAPSULE PO (11:36)
[2021-03-28 14:20] VITALS: BP 139/67; PULSE 93; RESP 18; TEMP 36.7; O2SAT 94
[2021-03-28] MEDS: Tamsulosin HCl 0.4 MG Capsule PO (16:34)
[2021-03-28] MEDS: Atorvastatin Calcium 40 MG Tablet PO (19:26)
[2021-03-28] MEDS: MELATONIN 10 MG TABLET PO (19:28)
--- NOTE | 2021-03-28 19:44 | PCA ---
This HEAVY DUTY DIESEL MECHANIC entered patient room to answer call. Approached patient and asked what they needed, and patient stated that they were ready for bed. HEAVY DUTY DIESEL MECHANIC had patient sit forward to remove pillows and place them on the bed. Patient was short with HEAVY DUTY DIESEL MECHANIC and appeared agitated. When asked what was wrong patient said to HEAVY DUTY DIESEL MECHANIC you don't need to be so grumpy. Seems like you don't want to help HEAVY DUTY DIESEL MECHANIC apologized and assured patient that they are here to help get them into bed like they asked.
[2021-03-29 06:48] VITALS: BP 156/89; PULSE 92; RESP 18; TEMP 36.4; O2SAT 95
[2021-03-29] MEDS: APIXABAN 2.5 MG TABLET PO ×2 (06:51→17:22)
[2021-03-29] MEDS: Pantoprazole Sodium 40 MG Tablet PO (06:51)
[2021-03-29 06:52] VITALS: BP 156/89; PULSE 92
[2021-03-29] MEDS: Escitalopram Oxalate 10 MG Tablet 5 MG PO (06:52)
[2021-03-29] MEDS: Metoprolol(XL)Succ 25 MG Tablet PO (06:52)
[2021-03-29] MEDS: Senna/Docusate Sodium 1 Tablet 2 TABLET PO ×2 (06:52→17:22)
[2021-03-29] MEDS: traMADol 50 MG Tablet PO ×3 (06:56→23:11)
[2021-03-29] MEDS: Multivitamins,Therapeutic Tablet 1 TABLET PO (07:47)
[2021-03-29] MEDS: Iron Polysaccharide Complex 150 MG CAPSULE PO (07:47)
[2021-03-29] MEDS: Vitamin B Comp W-C Capsule 1 CAP PO (07:47)
--- NOTE | 2021-03-29 10:53 | CASEMGMT ---
Social Work Met with patient for initial assessment. Discussed code status. Pt wishes to be DNR-CCA, no intubation. MOLST form completed, communication to , placed in chart. Explained [employer] insurance and with each review, continued stay is not guaranteed. The goal is for pt to return home with . Will assess safety and cognition. SW to continue to follow. Danyelle Lisa, EXPERIMENTAL AIRCRAFT MECHANIC FORGING MACHINE OPERATOR
--- NOTE | 2021-03-29 10:54 | NURSING ---
This nurse spoke with Pt and about code status and to have them sign paperwork. Pt and stated that they want comfort care only and signed DNRCC form.
--- NOTE | 2021-03-29 14:03 | NURSING ---
Pt has appointment scheduled for 04/07/21 at 1000. cannot transport and does not want to pay for transportation to take pt to appointment. If pt is still here 04/[address] Riggs's office and push appointment back to later date, Dr. Riggs's office aware and stated if pt is still here nursing can remove phoebe on 04/07
--- NOTE | 2021-03-29 14:17 | MDS.RN ---
therapy stated pt dizzy with standing, therapy assisted pt back to chair to rest. offered to do orthostats and pt declined at this time. states takes too much energy, maybe later. will update Dr Sun.
--- NOTE | 2021-03-29 14:42 | NURSING ---
Pt requesting to have his lexapro increased d/t increase of depressive symptoms and to have tylenol scheduled for pain. Message left for Dr. Sun
--- NOTE | 2021-03-29 15:41 | PT ---
Spoke with pt's about pt's prior level of function. Pt's stated pt was previously ambulating with shuffled gait pattern and was having difficulty with balance. Pt also has heel lifts on shoes for RLE. Pt's to bring in pt's tennis shoes.
[2021-03-29] MEDS: Tamsulosin HCl 0.4 MG Capsule PO (17:22)
[2021-03-29] MEDS: Acetaminophen 500 MG Tablet 1000 MG PO ×2 (18:10→21:54)
[2021-03-29] MEDS: Atorvastatin Calcium 40 MG Tablet PO (21:54)
[2021-03-29 23:23] VITALS: PULSE 90; O2SAT 93
[2021-03-30 06:41] VITALS: BP 126/69; PULSE 100
[2021-03-30] MEDS: Escitalopram Oxalate 10 MG Tablet PO (06:41)
[2021-03-30] MEDS: Metoprolol(XL)Succ 25 MG Tablet PO (06:41)
[2021-03-30] MEDS: Pantoprazole Sodium 40 MG Tablet PO (06:42)
[2021-03-30] MEDS: APIXABAN 2.5 MG TABLET PO ×2 (06:42→17:05)
[2021-03-30] MEDS: Acetaminophen 500 MG Tablet 1000 MG PO ×3 (06:47→20:59)
[2021-03-30] MEDS: traMADol 50 MG Tablet PO (08:35)
[2021-03-30] MEDS: Multivitamins,Therapeutic Tablet 1 TABLET PO (08:36)
[2021-03-30] MEDS: Iron Polysaccharide Complex 150 MG CAPSULE PO (08:37)
[2021-03-30] MEDS: Vitamin B Comp W-C Capsule 1 CAP PO (08:37)
--- NOTE | 2021-03-30 12:22 | NURSING ---
Spoke with pt's in room.
--- NOTE | 2021-03-30 14:24 | PCM.PN.RX ---
Progress Note - Pharmacy Subjective: TCU Admission Objective: Allergies Penicillins Allergy (Verified 03/22/21 14:40) Hives Current Medications Generic Name Dose Route Start Last Admin Trade Name Freq PRN Reason Stop Dose Admin Acetaminophen 1,000 mg 03/26/21 21:24 Acetaminophen 500 Mg Tablet PO QHS PRN Sleep Acetaminophen 1,000 mg 03/29/21 17:45 03/30/21 13:49 Acetaminophen 500 Mg Tablet PO 1,000 mg Q8 BRITTNEY Administration Apixaban 2.5 mg 03/26/21 18:00 03/30/21 06:42 Apixaban 2.5 Mg Tablet PO 04/13/21 21:54 2.5 mg BID BRITTNEY Administration Aspirin 81 mg 04/14/21 22:00 Aspirin 81 Mg Tab.Chew PO QHS [facility] Atorvastatin Calcium 40 mg 03/26/21 22:00 03/29/21 21:54 Atorvastatin Calcium 40 Mg Tablet PO 40 mg QHS [facility] Administration Bisacodyl 10 mg 03/26/21 18:05 Bisacodyl 10 Mg Suppository RC DAILY PRN Constipation Escitalopram Oxalate 10 mg 03/30/21 06:00 03/30/21 06:41 Escitalopram Oxalate 10 Mg Tablet PO 10 mg DAILY BRITTNEY Administration Melatonin 10 mg 03/26/21 21:22 03/28/21 19:28 Melatonin 10 Mg Tablet PO 10 mg QHS PRN Administration INSOMNIA Metoprolol Succinate 25 mg 03/27/21 06:00 03/30/21 06:41 Metoprolol(Xl)Succ 25 Mg Tablet PO 25 mg DAILY BRITTNEY Administration Multivitamins 1 tablet 03/27/21 08:00 03/30/21 08:36 Multivitamins,Therapeutic Tablet PO 1 tablet 0800 [facility] Administration Multivitamins 1 capsule 03/27/21 08:00 03/30/21 08:37 Vitamin B Comp W-C Capsule PO 1 capsule 0800 [facility] Administration Nitroglycerin 0.4 mg 03/26/21 19:01 Nitroglycerin (Inpatient Use) 0.4 Mg Tab.Subl SL Q5M PRN CARDIAC/CHEST PAIN Pantoprazole Sodium 40 mg 03/27/21 06:00 03/30/21 06:42 Pantoprazole Sodium 40 Mg Tablet PO 40 mg DAILY BRITTNEY Administration Polyethylene Glycol 17 gm 03/27/21 06:00 03/30/21 06:42 Polyethylene Glycol 3350 17 Gm Packet PO Not Given DAILY [facility] Polysaccharide Iron Complex 150 mg 03/28/21 08:00 03/30/21 08:37 Iron Polysaccharide Complex 150 Mg Capsule PO 150 mg DAILYCM [facility] Administration Senna/Docusate Sodium 2 tablet 03/27/21 06:00 03/30/21 06:42 Senna/Docusate Sodium 1 Tablet PO Not Given BID BRITTNEY Tamsulosin HCl 0.4 mg 03/27/21 17:30 03/29/21 17:22 Tamsulosin Hcl 0.4 Mg Capsule PO 0.4 mg DAILY@1730 BRITTNEY Administration Tramadol HCl 50 mg 03/26/21 17:58 03/30/21 08:35 Tramadol 50 Mg Tablet PO 50 mg Q6H PRN PRN Administration Pain Score 4-10 Tuberculin PPD 0.1 ml 04/03/21 10:00 Tuberculin,Purif.Prot.Deriv. 50 Tu/Ml Vial ID 04/03/21 10:01 X1 ONE Problem List (Last Reviewed 03/26/21 @ 21:[address] Hero Sun MD) Insomnia (Acute) Hyperlipidemia (Acute) Coronary artery disease (Acute) Gastroesophageal reflux disease (Acute) Depression (Acute) Hyponatremia (Acute) Closed left hip fracture (Acute) Debility (Acute) Vital Signs Temp Pulse Resp BP Pulse Ox 97.5 F L 100 18 126/69 H 93 03/29/21 06:48 03/30/21 06:41 03/29/21 06:48 03/30/21 06:41 03/29/21 23:23 Oxygen Delivery Method Room Air Weight: 98.997 kg Body Mass Index (BMI) 29.6 Sodium 136 mmol/L (136-145) 03/27/21 06:15 Potassium 4.6 mmol/L (3.5-5.1) 03/27/21 06:15 Chloride 103 mmol/L (98-107) 03/27/21 06:15 Carbon Dioxide 27.0 mmol/L (21.0-32.0) 03/27/21 06:15 Anion Gap 6 (5-15) 03/27/21 06:15 BUN 23 mg/dL (7-18) H 03/27/21 06:15 Creatinine 1.05 mg/dL (0.70-1.30) 03/27/21 06:15 Est GFR (MDRD) Af Amer 87 mL/min (>60) 03/27/21 06:15 Est GFR (MDRD) Non-Af 72 mL/min (>60) 03/27/21 06:15 BUN/Creatinine Ratio 21.9 RATIO (10-20) H 03/27/21 06:15 Glucose 114 mg/dL (74-106) H 03/27/21 06:15 Assessment/Plan: 1. Pain: acetaminophen 1000mg PO Q8 and tramadol 50mg PO Q6H PRN pain 4-02/07. Please continue to monitor for S/S of pain, PRN usage, respiratory depression and constipation. 2. DVT prophylaxis: apixaban 2.5mg PO BID thru 04/13/21. Please continue to monitor for hemoglobin (last 9.2) and S/S of bleeding/DVT. 3. CAD: metoprolol succinate 25mg PO daily, aspirin 81mg PO QHS and nitroglycerin 0.4mg SL Q5M PRN chest pain. Please continue to monitor for S/S of bleeding, hemoglobin, BP (last 126/69) and HR (last 100). 4. Hyperlipidemia: atorvastatin 40mg PO QHS. Please continue to monitor lipid panel (last 11/13/20) and for muscle pain. 5. GERD: pantoprazole 40mg PO daily. Please continue to monitor for S/S of GERD and diarrhea. 6. BPH: tamsulosin 0.4mg PO daily@1730. Please continue to monitor for S/S of BPH and BP. 7. Leg cramps/nutrition: vitamin B complex 1C PO daily and multivitamin 1T PO DAILYCM. Please continue to monitor. 8. Insomnia: acetaminophen 1000mg PO QHS PRN sleep and melatonin 10mg PO QHS PRN insomnia (may take along with tylenol for sleep). 9. Iron deficiency: Ferrex 150mg PO DAILYCM. Please continue to monitor hemoglobin (last 9.2g/dL), constipation and for dark stools. Psychotropic Medications: 1. Depression: escitalopram 5mg PO daily. Please see physician note regarding GDR. Unnecessary Medications: None *Bowel Regimen: Miralax 17gm PO daily, senna/docusate 2T PO BID and bisacodyl 10mg RC daily PRN constipation. Patient has refused 2/4 doses of Miralax and 3/7 doses of senna/docusate. Please consider changing to PRN constipation. Please continue to monitor for constipation and PRN usage. Date of Note:: 03/30/21
[2021-03-30 16:00] VITALS: BP 138/70; PULSE 73; RESP 16; TEMP 36.7; O2SAT 94
[2021-03-30] MEDS: Tamsulosin HCl 0.4 MG Capsule PO (17:05)
[2021-03-30] MEDS: Atorvastatin Calcium 40 MG Tablet PO (20:55)
[2021-03-31 06:35] VITALS: BP 171/76; PULSE 76
[2021-03-31] MEDS: Acetaminophen 500 MG Tablet 1000 MG PO ×3 (06:35→20:02)
[2021-03-31] MEDS: Metoprolol(XL)Succ 25 MG Tablet PO (06:35)
[2021-03-31] MEDS: Pantoprazole Sodium 40 MG Tablet PO (06:35)
[2021-03-31] MEDS: Escitalopram Oxalate 10 MG Tablet PO (06:35)
[2021-03-31] MEDS: APIXABAN 2.5 MG TABLET PO ×2 (06:36→18:10)
[2021-03-31] MEDS: traMADol 50 MG Tablet PO ×2 (08:45→19:59)
[2021-03-31] MEDS: Vitamin B Comp W-C Capsule 1 CAP PO (08:46)
[2021-03-31] MEDS: Multivitamins,Therapeutic Tablet 1 TABLET PO (08:46)
[2021-03-31] MEDS: Iron Polysaccharide Complex 150 MG CAPSULE PO (08:46)
--- NOTE | 2021-03-31 10:24 | CASEMGMT ---
Social Work IDT met with patient and for care plan meeting. Discussed patient's progress in PT/OT/ST and nursing. Explained [employer] insurance with NRD 03/30 and continued stay is not guaranteed. The goal is for pt to return home with and PLOF. Broached subject of possibly needing alternative DC plan as pt needs significant assistance and cannot assist at this level at home. Explained and provided resources for nonskilled HHC list. Pt and do not want pt in SNF r/t COVID concerns. Encouraged to begin contacting agencies to put on waitlist. SW to continue to follow. Danyelle Lisa, BUSHER HELPER WASTE MINIMIZATION TECHNICIAN
[2021-03-31] MEDS: Senna/Docusate Sodium 1 Tablet 2 TABLET PO (18:09)
[2021-03-31] MEDS: Tamsulosin HCl 0.4 MG Capsule PO (18:10)
[2021-03-31] MEDS: Atorvastatin Calcium 40 MG Tablet PO (20:01)
[2021-03-31 20:17] VITALS: PULSE 95; RESP 18; O2SAT 92
[2021-04-01] MEDS: Escitalopram Oxalate 10 MG Tablet PO (05:21)
[2021-04-01 05:22] VITALS: BP 142/85; PULSE 84
[2021-04-01] MEDS: Acetaminophen 500 MG Tablet 1000 MG PO ×3 (05:22→20:33)
[2021-04-01] MEDS: Metoprolol(XL)Succ 25 MG Tablet PO (05:22)
[2021-04-01] MEDS: Pantoprazole Sodium 40 MG Tablet PO (05:22)
[2021-04-01] MEDS: Senna/Docusate Sodium 1 Tablet 2 TABLET PO (05:22)
[2021-04-01] MEDS: APIXABAN 2.5 MG TABLET PO ×2 (05:22→17:31)
[2021-04-01 05:25] VITALS: BP 142/85; PULSE 84; RESP 16; TEMP 36.6; O2SAT 95
[2021-04-01] MEDS: Vitamin B Comp W-C Capsule 1 CAP PO (08:25)
[2021-04-01] MEDS: Multivitamins,Therapeutic Tablet 1 TABLET PO (08:25)
[2021-04-01] MEDS: Iron Polysaccharide Complex 150 MG CAPSULE PO (08:25)
[2021-04-01] MEDS: traMADol 50 MG Tablet PO ×2 (09:33→20:33)
[2021-04-01 13:20] VITALS: BP 131/64; PULSE 85; RESP 16; TEMP 36.3; O2SAT 97
--- NOTE | 2021-04-01 16:12 | NURSING ---
Pt has a lot of hip pain with activity and therapy reports pt performs better in therapy if he has pain medications 1 hour prior to therapy. Therapy states they will see pt daily at around 1:30 and would like pt to be medicated around 12:30. Message left for Dr. Sun requesting isabela tramadol daily at 12:30 prior to therapy per pt and therapy request
[2021-04-01] MEDS: Tamsulosin HCl 0.4 MG Capsule PO (17:31)
[2021-04-01] MEDS: Menthol/Lanolin/Calamine/Znox 113 GM Tube 1 APPLIC TOPICAL (17:32)
[2021-04-01] MEDS: Atorvastatin Calcium 40 MG Tablet PO (20:33)
[2021-04-01] MEDS: MELATONIN 10 MG TABLET PO (20:33)
[2021-04-02] MEDS: APIXABAN 2.5 MG TABLET PO ×2 (06:27→17:30)
[2021-04-02] MEDS: Senna/Docusate Sodium 1 Tablet 2 TABLET PO (06:27)
[2021-04-02 06:28] VITALS: BP 103/64; PULSE 85
[2021-04-02] MEDS: Metoprolol(XL)Succ 25 MG Tablet PO (06:28)
[2021-04-02] MEDS: Escitalopram Oxalate 10 MG Tablet PO (06:28)
[2021-04-02] MEDS: Pantoprazole Sodium 40 MG Tablet PO (06:28)
[2021-04-02] MEDS: Acetaminophen 500 MG Tablet 1000 MG PO ×3 (06:28→22:53)
[2021-04-02] MEDS: Menthol/Lanolin/Calamine/Znox 113 GM Tube 1 APPLIC TOPICAL ×2 (06:30→17:31)
[2021-04-02] MEDS: Vitamin B Comp W-C Capsule 1 CAP PO (09:00)
[2021-04-02] MEDS: Iron Polysaccharide Complex 150 MG CAPSULE PO (09:00)
[2021-04-02] MEDS: Multivitamins,Therapeutic Tablet 1 TABLET PO (09:01)
--- NOTE | 2021-04-02 10:19 | CASEMGMT ---
Social Work BIMS and PHQ-9 completed for MDS assessment. Pt reports to feeling better off . Explored further. Pt expresses he doesn't like feeling helpless, not being able to do anything, and doesn't suffering. No intent or plan to harm self. Encouraged pt to look forward to getting better, returning home with , and goals to become independent again. Danyelle Lisa, TURNER IN SUGAR LABORATORY ASSISTANT
[2021-04-02] MEDS: traMADol 50 MG Tablet PO (12:19)
[2021-04-02] MEDS: 0.9% Normal Saline 1,000 ML 999 ML IV (14:27)
[2021-04-02 14:52] VITALS: BP 135/65; BP 99/56
--- NOTE | 2021-04-02 14:57 | NURSING ---
Therapy reported to this nurse pt has dizziness with standing, Ortho stats obtained and sitting pt had bp of 135/65 and dropped to 99/56 when standing, Dr. Sun on floor at the time and was updated, N.O. 0.9% 1000cc IV bolus and then NS IV maintenance fluid at 75cc/hr, stop fluids if pt has edema/crackles or other s/s of fluid overload, 22G saline lock started in LFA, pt tolerated well
[2021-04-02 14:58] VITALS: BP 134/61; PULSE 88; RESP 16; TEMP 36.2; O2SAT 94
[2021-04-02] MEDS: 0.9% Normal Saline 1,000 ML 75 ML IV (15:30)
[2021-04-02] MEDS: Tamsulosin HCl 0.4 MG Capsule PO (17:30)
[2021-04-02] MEDS: MELATONIN 10 MG TABLET PO (22:52)
[2021-04-02] MEDS: Atorvastatin Calcium 40 MG Tablet PO (22:53)
[2021-04-03 00:05] VITALS: PULSE 97; RESP 18; O2SAT 91
[2021-04-03] MEDS: 0.9% Normal Saline 1,000 ML 75 ML IV ×2 (04:57→16:57)
[2021-04-03] MEDS: Acetaminophen 500 MG Tablet 1000 MG PO ×3 (05:01→21:12)
[2021-04-03] MEDS: Polyethylene Glycol 3350 17 GM PACKET PO (05:01)
[2021-04-03] MEDS: Pantoprazole Sodium 40 MG Tablet PO (05:03)
[2021-04-03] MEDS: APIXABAN 2.5 MG TABLET PO ×2 (05:03→16:58)
[2021-04-03] MEDS: Senna/Docusate Sodium 1 Tablet 2 TABLET PO ×2 (05:03→16:59)
[2021-04-03] MEDS: Escitalopram Oxalate 10 MG Tablet PO (05:03)
[2021-04-03 05:07] VITALS: BP 168/69; PULSE 85
[2021-04-03] MEDS: Metoprolol(XL)Succ 25 MG Tablet PO (05:07)
[2021-04-03] MEDS: Menthol/Lanolin/Calamine/Znox 113 GM Tube 1 APPLIC TOPICAL ×2 (05:13→17:00)
[2021-04-03 08:17] LABS: Absolute Lymphocyte Count 1.37 X10^3/uL (0.83-4.51); Absolute Neutrophil Count 10.6 X10^3/uL (2.0-7.7); Basophil# 0.04 X10^3/uL; Basophil% 0.3 % (0-1); Eosinophil# 0.09 X10^3/uL; Eosinophils% 0.7 % (0-5); Hematocrit 29.8 % (40-54); Hemoglobin 9.6 g/dL (13.0-16.5); Lymphocyte # 1.37 X10^3/ul (0.83-4.51); Lymphocyte % 10.2 % (19-41); Mean Corp Hgb Conc 32.2 g/dL (32-36); Mean Corpuscular Hgb 31.3 pg (27.0-32.0); Mean Corpuscular Volume 97.1 fL (80-94); Mean Platelet Vol. 8.7 fl (6.2-12.0); Monocyte# 1.05 X10^3/uL; Monocyte% 7.8 % (0-10); NRBC Flagged by Analyzer 0.1 % (0-5); Neutrophil % 78.5 % (47-70); Platelet Count 295 K/mm3 (150-450); RBC Distribution Width CV 15.1 % (11.6-14.6); Red Blood Count 3.07 M/mm3 (4.6-6.2); White Blood Count 13.5 K/mm3 (4.4-11.0)
[2021-04-03 08:44] LABS: Anion Gap 7 (5-15); BUN 19 mg/dL (7-18); BUN/Creat Ratio 19.5 RATIO (10-20); Chloride 104 mmol/L (98-107); Creatinine, Serum 0.97 mg/dL (0.70-1.30); EST Glomerular Filtration Rate 78 mL/min (>60); Est Glom Filt Rate - Afr Amer 95 mL/min (>60); Estimated Creatinine Clearance 63.33 ml/min; Glucose 112 mg/dL (74-106); Potassium 4.4 mmol/L (3.5-5.1); Sodium Level 136 mmol/L (136-145)
[2021-04-03] MEDS: Vitamin B Comp W-C Capsule 1 CAP PO (08:55)
[2021-04-03] MEDS: Iron Polysaccharide Complex 150 MG CAPSULE PO (08:55)
[2021-04-03] MEDS: Multivitamins,Therapeutic Tablet 1 TABLET PO (08:55)
[2021-04-03] MEDS: traMADol 50 MG Tablet PO (11:49)
[2021-04-03] MEDS: Tuberculin,Purif.prot.deriv. 50 TU/ML Vial 0.1 ML ID (11:51)
--- NOTE | 2021-04-03 14:14 | NURSING ---
lungs clear, at bedside. NS infusing per order. verified that edema no worse, normal for him.
[2021-04-03 15:07] VITALS: PULSE 79; RESP 18; O2SAT 96
[2021-04-03 15:23] VITALS: PULSE 85; RESP 18; TEMP 36.7; O2SAT 93
[2021-04-03] MEDS: Tamsulosin HCl 0.4 MG Capsule PO (16:58)
[2021-04-03] MEDS: Atorvastatin Calcium 40 MG Tablet PO (21:12)
--- NOTE | 2021-04-04 05:58 | NURSING ---
Crackles auscultated to left upper and lower anterior lung chatman (new finding), edema noted to LUE. IV fluids stopped per order if increased edema or crackles noted. No distress observed or reported. VSS.
[2021-04-04 06:02] VITALS: BP 179/86; PULSE 90
[2021-04-04] MEDS: Menthol/Lanolin/Calamine/Znox 113 GM Tube 1 APPLIC TOPICAL ×2 (06:02→16:31)
[2021-04-04] MEDS: Pantoprazole Sodium 40 MG Tablet PO (06:02)
[2021-04-04] MEDS: Senna/Docusate Sodium 1 Tablet 2 TABLET PO ×2 (06:02→16:31)
[2021-04-04] MEDS: Metoprolol(XL)Succ 25 MG Tablet PO (06:02)
[2021-04-04] MEDS: Polyethylene Glycol 3350 17 GM PACKET PO (06:02)
[2021-04-04] MEDS: Acetaminophen 500 MG Tablet 1000 MG PO ×3 (06:03→20:58)
[2021-04-04] MEDS: Escitalopram Oxalate 10 MG Tablet PO (06:03)
[2021-04-04] MEDS: APIXABAN 2.5 MG TABLET PO ×2 (06:03→16:31)
[2021-04-04 07:20] VITALS: PULSE 90; RESP 20; TEMP 36.2; O2SAT 99
[2021-04-04] MEDS: traMADol 50 MG Tablet PO ×2 (08:47→19:30)
[2021-04-04] MEDS: Multivitamins,Therapeutic Tablet 1 TABLET PO (08:48)
[2021-04-04] MEDS: Vitamin B Comp W-C Capsule 1 CAP PO (08:48)
[2021-04-04] MEDS: Iron Polysaccharide Complex 150 MG CAPSULE PO (08:48)
[2021-04-04 15:42] VITALS: BP 156/75; PULSE 79; RESP 18; TEMP 36.7; O2SAT 93
[2021-04-04] MEDS: Tamsulosin HCl 0.4 MG Capsule PO (16:31)
[2021-04-04 20:00] VITALS: PULSE 90; RESP 20; O2SAT 96
--- NOTE | 2021-04-04 20:47 | NURSING ---
Dr. Sun notified via telephone of noted elevated blood pressures and pulse. New order received to increase Toprol XL to 50mg once daily oral
[2021-04-04] MEDS: Atorvastatin Calcium 40 MG Tablet PO (20:58)
[2021-04-05] MEDS: 0.9% Saline Lock 10 ML Syringe IV (05:34)
[2021-04-05] MEDS: Acetaminophen 500 MG Tablet 1000 MG PO ×3 (05:37→19:54)
[2021-04-05] MEDS: Pantoprazole Sodium 40 MG Tablet PO (05:38)
[2021-04-05] MEDS: Escitalopram Oxalate 10 MG Tablet PO (05:38)
[2021-04-05] MEDS: APIXABAN 2.5 MG TABLET PO ×2 (05:38→18:28)
[2021-04-05 05:39] VITALS: BP 167/81; PULSE 96
[2021-04-05] MEDS: Metoprolol(XL)Succ 50 MG Tablet PO (05:39)
[2021-04-05] MEDS: Menthol/Lanolin/Calamine/Znox 113 GM Tube 1 APPLIC TOPICAL ×2 (05:39→18:30)
[2021-04-05 05:40] LABS: Hematocrit 29.6 % (40-54); Hemoglobin 9.7 g/dL (13.0-16.5)
[2021-04-05] MEDS: Vitamin B Comp W-C Capsule 1 CAP PO (08:50)
[2021-04-05] MEDS: Iron Polysaccharide Complex 150 MG CAPSULE PO (08:50)
[2021-04-05] MEDS: Multivitamins,Therapeutic Tablet 1 TABLET PO (08:50)
[2021-04-05] MEDS: traMADol 50 MG Tablet PO (12:02)
--- NOTE | 2021-04-05 15:24 | NURSING ---
Resident and spouse, Lea, notified of staff member testing positive for COVID.
[2021-04-05 15:35] VITALS: BP 129/62; PULSE 77; RESP 20; TEMP 37; O2SAT 95
[2021-04-05] MEDS: Tamsulosin HCl 0.4 MG Capsule PO (18:27)
[2021-04-05] MEDS: Senna/Docusate Sodium 1 Tablet 2 TABLET PO (18:28)
[2021-04-05] MEDS: Atorvastatin Calcium 40 MG Tablet PO (19:55)
[2021-04-05] MEDS: MELATONIN 10 MG TABLET PO (19:58)
[2021-04-06] MEDS: Senna/Docusate Sodium 1 Tablet 2 TABLET PO ×2 (05:58→17:26)
[2021-04-06] MEDS: Escitalopram Oxalate 10 MG Tablet PO (05:58)
[2021-04-06] MEDS: APIXABAN 2.5 MG TABLET PO ×2 (05:58→17:25)
[2021-04-06 05:59] VITALS: BP 140/66; PULSE 71
[2021-04-06] MEDS: Acetaminophen 500 MG Tablet 1000 MG PO ×3 (05:59→21:45)
[2021-04-06] MEDS: Polyethylene Glycol 3350 17 GM PACKET PO (05:59)
[2021-04-06] MEDS: Metoprolol(XL)Succ 50 MG Tablet PO (05:59)
[2021-04-06] MEDS: Pantoprazole Sodium 40 MG Tablet PO (05:59)
[2021-04-06] MEDS: Iron Polysaccharide Complex 150 MG CAPSULE PO (08:30)
[2021-04-06] MEDS: Vitamin B Comp W-C Capsule 1 CAP PO (08:30)
[2021-04-06] MEDS: Multivitamins,Therapeutic Tablet 1 TABLET PO (08:30)
[2021-04-06] MEDS: traMADol 50 MG Tablet PO ×2 (12:30→21:45)
--- NOTE | 2021-04-06 13:45 | NURSING ---
Staff reports pt has an episode of dizziness. Pt denies dizziness, lightheadedness, and/or palpitations upon entering room. Reports shortness of breath is baseline consistent w/ COPD. HR RRR. No murmurs, rubs, or gallops. Pt is not tachycardic. Lungs clear, diminished b/l posterior. SpO2 96-97% on room air. Verbalizes he is consuming an adequate amount of fluids. Urine yellow, clear- 200 ml emptied from urinal. Will continue to monitor.
[2021-04-06 14:22] VITALS: BP 101/56; PULSE 80; RESP 22; TEMP 36.2; O2SAT 95
[2021-04-06] MEDS: Menthol/Lanolin/Calamine/Znox 113 GM Tube 1 APPLIC TOPICAL (17:26)
[2021-04-06] MEDS: Tamsulosin HCl 0.4 MG Capsule PO (17:26)
[2021-04-06] MEDS: MELATONIN 10 MG TABLET PO (21:45)
[2021-04-06] MEDS: Atorvastatin Calcium 40 MG Tablet PO (21:46)
[2021-04-06] MEDS: 0.9% Saline Lock 10 ML Syringe IV (21:55)
[2021-04-06 21:57] VITALS: PULSE 73; RESP 16; O2SAT 93
[2021-04-07] MEDS: APIXABAN 2.5 MG TABLET PO ×2 (05:38→16:51)
[2021-04-07] MEDS: Acetaminophen 500 MG Tablet 1000 MG PO ×3 (05:38→20:06)
[2021-04-07 05:39] VITALS: BP 153/82; PULSE 72
[2021-04-07] MEDS: Polyethylene Glycol 3350 17 GM PACKET PO (05:39)
[2021-04-07] MEDS: Escitalopram Oxalate 10 MG Tablet PO (05:39)
[2021-04-07] MEDS: Metoprolol(XL)Succ 50 MG Tablet PO (05:39)
[2021-04-07] MEDS: Pantoprazole Sodium 40 MG Tablet PO (05:39)
[2021-04-07] MEDS: Senna/Docusate Sodium 1 Tablet 2 TABLET PO (05:39)
[2021-04-07] MEDS: Menthol/Lanolin/Calamine/Znox 113 GM Tube 1 APPLIC TOPICAL ×2 (05:40→16:53)
[2021-04-07] MEDS: Multivitamins,Therapeutic Tablet 1 TABLET PO (08:05)
[2021-04-07] MEDS: Vitamin B Comp W-C Capsule 1 CAP PO (08:05)
[2021-04-07] MEDS: Iron Polysaccharide Complex 150 MG CAPSULE PO (08:05)
--- NOTE | 2021-04-07 09:32 | NURSING ---
This nurse called Dr. Riggs's office and cancelled appointment per request d/t transportation issues. Per Office ok to remove phoebe today
[2021-04-07 10:00] VITALS: PULSE 80; RESP 18
[2021-04-07] MEDS: traMADol 50 MG Tablet PO (12:02)
--- NOTE | 2021-04-07 14:15 | MDS.RN ---
Information for the mds was obtained from review of the clinical record, interview of resident, staff, and direct observation of resident's care.
[2021-04-07 15:26] VITALS: BP 127/57; PULSE 80; RESP 16; TEMP 36.3; O2SAT 95
[2021-04-07] MEDS: Tamsulosin HCl 0.4 MG Capsule PO (16:51)
[2021-04-07] MEDS: Atorvastatin Calcium 40 MG Tablet PO (20:06)
[2021-04-08] MEDS: Acetaminophen 500 MG Tablet 1000 MG PO ×3 (05:37→20:37)
[2021-04-08] MEDS: Menthol/Lanolin/Calamine/Znox 113 GM Tube 1 APPLIC TOPICAL ×2 (05:37→18:20)
[2021-04-08] MEDS: APIXABAN 2.5 MG TABLET PO ×2 (05:38→18:21)
[2021-04-08] MEDS: Pantoprazole Sodium 40 MG Tablet PO (05:38)
[2021-04-08] MEDS: Escitalopram Oxalate 10 MG Tablet PO (05:38)
[2021-04-08 05:40] VITALS: BP 168/83; PULSE 87
[2021-04-08] MEDS: Metoprolol(XL)Succ 50 MG Tablet PO (05:40)
[2021-04-08] MEDS: Vitamin B Comp W-C Capsule 1 CAP PO (08:08)
[2021-04-08] MEDS: Iron Polysaccharide Complex 150 MG CAPSULE PO (08:08)
[2021-04-08] MEDS: Multivitamins,Therapeutic Tablet 1 TABLET PO (08:09)
[2021-04-08] MEDS: traMADol 50 MG Tablet PO (12:48)
[2021-04-08 13:31] VITALS: BP 118/58; PULSE 82; RESP 18; TEMP 36.4; O2SAT 96
[2021-04-08] MEDS: Senna/Docusate Sodium 1 Tablet 2 TABLET PO (18:21)
--- NOTE | 2021-04-08 19:45 | NURSING ---
X10 Phoebe removed from proximal incision site and X5 phoebe removed from distal incision. Patient tolerated well.
[2021-04-08 19:50] VITALS: PULSE 63; RESP 16; O2SAT 93
--- NOTE | 2021-04-08 19:58 | NURSING ---
Patient taken down to radiology at this time via wheelchair d/t patient complaining he did not want to be taken down there in his bed.
--- NOTE | 2021-04-08 20:05 | RAD_ITS ---
STUDY: X-RAY - PELVIS AND LEFT HIP REASON FOR EXAM: Male, 85 years old. Pain. TECHNIQUE: 3 views of the pelvis and hip on 4 images. COMPARISON: Preoperative images dated 03/22/2021. FINDINGS: There is a non-specific bowel gas pattern. Normal visualized soft tissue structures. Osteopenia. Stable right dynamic hip screw with deformity of the right proximal femur. New left dynamic hip screw in anatomic alignment without complicating features. Near anatomic alignment of the previous intertrochanteric fracture. RAD/HIP, UNI W/ Pelvis 2-3 Views IMPRESSION: New left dynamic hip screw without complications. Electronically Signed: Ned Gonzales MD at 9:19 EST , Service support ,
[2021-04-08] MEDS: Atorvastatin Calcium 40 MG Tablet PO (20:37)
[2021-04-09] MEDS: Acetaminophen 500 MG Tablet 1000 MG PO ×3 (04:18→22:08)
[2021-04-09] MEDS: Menthol/Lanolin/Calamine/Znox 113 GM Tube 1 APPLIC TOPICAL ×2 (04:18→17:05)
[2021-04-09] MEDS: APIXABAN 2.5 MG TABLET PO ×2 (04:18→17:05)
[2021-04-09 04:19] VITALS: BP 162/86; PULSE 72
[2021-04-09] MEDS: Senna/Docusate Sodium 1 Tablet 2 TABLET PO (04:19)
[2021-04-09] MEDS: Pantoprazole Sodium 40 MG Tablet PO (04:19)
[2021-04-09] MEDS: Metoprolol(XL)Succ 50 MG Tablet PO (04:19)
[2021-04-09] MEDS: Escitalopram Oxalate 10 MG Tablet PO (04:19)
[2021-04-09] MEDS: Vitamin B Comp W-C Capsule 1 CAP PO (07:44)
[2021-04-09] MEDS: Iron Polysaccharide Complex 150 MG CAPSULE PO (07:44)
[2021-04-09] MEDS: Multivitamins,Therapeutic Tablet 1 TABLET PO (07:44)
[2021-04-09] MEDS: 0.9% Saline Lock 10 ML Syringe IV (09:11)
[2021-04-09] MEDS: traMADol 50 MG Tablet PO (11:54)
--- NOTE | 2021-04-09 12:53 | CASEMGMT ---
Social Work Met with pt's to discuss goals for DC. Explained insurance update today and unsure about continued stay. Per , pt needs to be able to transfer independently, walk 35 ft and completed 3 steps to get into house. Pt does have lift chair at home, but currently needing modA for bed mobility and is unable to do steps. stated a SNF is not an option; only home. Therapy recommending continued stay. SW to continue to follow for discharge planning. Danyelle Lisa, AUTOMOTIVE BUYER SAND BOBBER
[2021-04-09 14:30] VITALS: BP 126/44; PULSE 89; RESP 18; TEMP 36.3; O2SAT 91
[2021-04-09] MEDS: MELATONIN 10 MG TABLET PO (22:08)
[2021-04-09] MEDS: Atorvastatin Calcium 40 MG Tablet PO (22:08)
[2021-04-10] MEDS: Escitalopram Oxalate 10 MG Tablet PO (05:46)
[2021-04-10] MEDS: Senna/Docusate Sodium 1 Tablet 2 TABLET PO (05:46)
[2021-04-10] MEDS: Polyethylene Glycol 3350 17 GM PACKET PO (05:46)
[2021-04-10] MEDS: Pantoprazole Sodium 40 MG Tablet PO (05:46)
[2021-04-10 05:47] VITALS: BP 190/96; PULSE 91
[2021-04-10] MEDS: Acetaminophen 500 MG Tablet 1000 MG PO ×3 (05:47→21:43)
[2021-04-10] MEDS: Menthol/Lanolin/Calamine/Znox 113 GM Tube 1 APPLIC TOPICAL ×2 (05:47→17:00)
[2021-04-10] MEDS: Metoprolol(XL)Succ 50 MG Tablet PO (05:47)
[2021-04-10] MEDS: APIXABAN 2.5 MG TABLET PO ×2 (05:48→17:01)
[2021-04-10 07:50] LABS: Absolute Lymphocyte Count 1.05 X10^3/uL (0.83-4.51); Absolute Neutrophil Count 4.9 X10^3/uL (2.0-7.7); Basophil# 0.02 X10^3/uL; Basophil% 0.3 % (0-1); Eosinophil# 0.05 X10^3/uL; Eosinophils% 0.7 % (0-5); Hematocrit 31.2 % (40-54); Hemoglobin 10.1 g/dL (13.0-16.5); Lymphocyte # 1.05 X10^3/ul (0.83-4.51); Lymphocyte % 15.6 % (19-41); Mean Corp Hgb Conc 32.4 g/dL (32-36); Mean Corpuscular Hgb 31.4 pg (27.0-32.0); Mean Corpuscular Volume 96.9 fL (80-94); Mean Platelet Vol. 8.7 fl (6.2-12.0); Monocyte# 0.67 X10^3/uL; Monocyte% 9.9 % (0-10); NRBC Flagged by Analyzer 0 % (0-5); Neutrophil # 4.92 X10^3/uL (2.7-7.7); Neutrophil % 72.9 % (47-70); Platelet Count 280 K/mm3 (150-450); RBC Distribution Width CV 15.3 % (11.6-14.6); RBC Distribution Width SD 53.7 fl (35.1-43.9); Red Blood Count 3.22 M/mm3 (4.6-6.2); White Blood Count 6.8 K/mm3 (4.4-11.0)
[2021-04-10 08:11] LABS: Anion Gap 4 (5-15); BUN 14 mg/dL (7-18); BUN/Creat Ratio 14.4 RATIO (10-20); Calcium,Total 9.1 mg/dL (8.5-10.1); Chloride 104 mmol/L (98-107); Creatinine, Serum 0.97 mg/dL (0.70-1.30); EST Glomerular Filtration Rate 79 mL/min (>60); Est Glom Filt Rate - Afr Amer 95 mL/min (>60); Estimated Creatinine Clearance 63.33 ml/min; Glucose 98 mg/dL (74-106); Potassium 4.9 mmol/L (3.5-5.1); Sodium Level 138 mmol/L (136-145)
[2021-04-10] MEDS: Multivitamins,Therapeutic Tablet 1 TABLET PO (08:25)
[2021-04-10] MEDS: Vitamin B Comp W-C Capsule 1 CAP PO (08:25)
[2021-04-10] MEDS: Iron Polysaccharide Complex 150 MG CAPSULE PO (08:25)
[2021-04-10 10:04] VITALS: BP 149/63; PULSE 73
[2021-04-10] MEDS: traMADol 50 MG Tablet PO ×2 (12:09→21:50)
[2021-04-10 14:42] VITALS: BP 147/67; PULSE 76; RESP 20; TEMP 37; O2SAT 95
[2021-04-10] MEDS: MELATONIN 10 MG TABLET PO (21:43)
[2021-04-10] MEDS: Atorvastatin Calcium 40 MG Tablet PO (21:43)
[2021-04-10 22:31] VITALS: PULSE 66; RESP 16; O2SAT 100
[2021-04-10 22:40] VITALS: BP 143/72; PULSE 66; RESP 18; TEMP 36.6
[2021-04-11] MEDS: Menthol/Lanolin/Calamine/Znox 113 GM Tube 1 APPLIC TOPICAL ×2 (06:33→18:10)
[2021-04-11] MEDS: APIXABAN 2.5 MG TABLET PO ×2 (06:34→18:10)
[2021-04-11] MEDS: Escitalopram Oxalate 10 MG Tablet PO (06:34)
[2021-04-11] MEDS: Pantoprazole Sodium 40 MG Tablet PO (06:35)
[2021-04-11] MEDS: Senna/Docusate Sodium 1 Tablet 2 TABLET PO ×2 (06:35→18:10)
[2021-04-11 06:36] VITALS: BP 171/69; PULSE 69
[2021-04-11] MEDS: Metoprolol(XL)Succ 50 MG Tablet PO (06:36)
[2021-04-11] MEDS: Acetaminophen 500 MG Tablet 1000 MG PO ×3 (06:37→21:09)
[2021-04-11] MEDS: Iron Polysaccharide Complex 150 MG CAPSULE PO (08:44)
[2021-04-11] MEDS: Multivitamins,Therapeutic Tablet 1 TABLET PO (08:44)
[2021-04-11] MEDS: Vitamin B Comp W-C Capsule 1 CAP PO (08:44)
[2021-04-11] MEDS: traMADol 50 MG Tablet PO (12:59)
[2021-04-11 13:48] VITALS: BP 125/56; PULSE 71; RESP 19; TEMP 36.2; O2SAT 94
[2021-04-11] MEDS: Atorvastatin Calcium 40 MG Tablet PO (21:09)
[2021-04-11] MEDS: MELATONIN 10 MG TABLET PO (21:15)
--- NOTE | 2021-04-11 22:05 | NURSING ---
Paged Dr. Sun w/ immediate return phone call. Updated on spouse's request to increase dose of Escitalopram d/t concerns w/ continued depressed mood. Initial dose of 5 mg started on 03/27, then increased to 10 mg on 03/30. Per Dr. Sun, at this time will continue with same dose and continue to monitor mood.
[2021-04-12] MEDS: Menthol/Lanolin/Calamine/Znox 113 GM Tube 1 APPLIC TOPICAL ×2 (06:15→17:13)
[2021-04-12] MEDS: Escitalopram Oxalate 10 MG Tablet PO (06:15)
[2021-04-12] MEDS: APIXABAN 2.5 MG TABLET PO ×2 (06:15→17:10)
[2021-04-12] MEDS: Senna/Docusate Sodium 1 Tablet 2 TABLET PO ×2 (06:15→17:10)
[2021-04-12 06:16] VITALS: BP 151/88; PULSE 71
[2021-04-12] MEDS: Pantoprazole Sodium 40 MG Tablet PO (06:16)
[2021-04-12] MEDS: Metoprolol(XL)Succ 50 MG Tablet PO (06:16)
[2021-04-12] MEDS: Acetaminophen 500 MG Tablet 1000 MG PO ×3 (06:16→21:39)
[2021-04-12] MEDS: traMADol 50 MG Tablet PO ×2 (08:33→13:09)
[2021-04-12] MEDS: Vitamin B Comp W-C Capsule 1 CAP PO (08:34)
[2021-04-12] MEDS: Iron Polysaccharide Complex 150 MG CAPSULE PO (08:34)
[2021-04-12] MEDS: Multivitamins,Therapeutic Tablet 1 TABLET PO (08:34)
[2021-04-12 16:00] VITALS: BP 151/72; PULSE 64; RESP 14; TEMP 36.4; O2SAT 95
[2021-04-12 21:39] VITALS: PULSE 64; RESP 16; O2SAT 98
[2021-04-12] MEDS: Atorvastatin Calcium 40 MG Tablet PO (21:39)
[2021-04-13 04:48] VITALS: PULSE 68
[2021-04-13] MEDS: Pantoprazole Sodium 40 MG Tablet PO (04:48)
[2021-04-13] MEDS: Senna/Docusate Sodium 1 Tablet 2 TABLET PO ×2 (04:48→17:54)
[2021-04-13] MEDS: Metoprolol(XL)Succ 50 MG Tablet PO (04:48)
[2021-04-13] MEDS: Acetaminophen 500 MG Tablet 1000 MG PO ×3 (04:48→21:21)
[2021-04-13] MEDS: Escitalopram Oxalate 10 MG Tablet PO (04:49)
[2021-04-13] MEDS: APIXABAN 2.5 MG TABLET PO ×2 (04:49→17:54)
[2021-04-13] MEDS: Menthol/Lanolin/Calamine/Znox 113 GM Tube 1 APPLIC TOPICAL ×2 (04:52→20:19)
[2021-04-13 04:53] VITALS: BP 167/65; PULSE 68; RESP 18; TEMP 36.3; O2SAT 100
[2021-04-13] MEDS: Multivitamins,Therapeutic Tablet 1 TABLET PO (08:35)
[2021-04-13] MEDS: Iron Polysaccharide Complex 150 MG CAPSULE PO (08:35)
[2021-04-13] MEDS: Vitamin B Comp W-C Capsule 1 CAP PO (08:35)
[2021-04-13] MEDS: traMADol 50 MG Tablet PO ×2 (08:38→12:26)
[2021-04-13 12:28] VITALS: PULSE 83; RESP 18; O2SAT 96
[2021-04-13 13:15] VITALS: BP 163/80; PULSE 82
[2021-04-13 13:20] VITALS: BP 128/51; PULSE 92
[2021-04-13 13:29] VITALS: BP 128/51; BP 163/80; PULSE 82; PULSE 92
--- NOTE | 2021-04-13 13:30 | NURSING ---
pt complained of feeling dizzy and light headed. ortho vitals done. rn aware
--- NOTE | 2021-04-13 13:32 | WOUNDNOTE ---
wound photo: right buttock
--- NOTE | 2021-04-13 14:17 | NURSING ---
pt c/o lightheadedness with movement. BP's taken. will updated Dr Sun. pt resting in recliner chair, legs elevated. call light in reach. spoke with regarding pt episode today as well
[2021-04-13] MEDS: Atorvastatin Calcium 40 MG Tablet PO (21:21)
[2021-04-13] MEDS: MELATONIN 10 MG TABLET PO (21:21)
[2021-04-14] MEDS: Menthol/Lanolin/Calamine/Znox 113 GM Tube 1 APPLIC TOPICAL ×2 (06:44→16:55)
[2021-04-14 06:45] VITALS: BP 158/66; PULSE 70
[2021-04-14] MEDS: Acetaminophen 500 MG Tablet 1000 MG PO ×3 (06:45→20:51)
[2021-04-14] MEDS: Escitalopram Oxalate 10 MG Tablet PO (06:45)
[2021-04-14] MEDS: Senna/Docusate Sodium 1 Tablet 2 TABLET PO ×2 (06:45→16:54)
[2021-04-14] MEDS: Metoprolol(XL)Succ 50 MG Tablet PO (06:45)
[2021-04-14] MEDS: Pantoprazole Sodium 40 MG Tablet PO (06:45)
[2021-04-14 06:51] VITALS: BP 158/66; PULSE 70; RESP 16; TEMP 36.1; O2SAT 96
[2021-04-14] MEDS: Multivitamins,Therapeutic Tablet 1 TABLET PO (07:45)
[2021-04-14] MEDS: Vitamin B Comp W-C Capsule 1 CAP PO (07:45)
[2021-04-14] MEDS: Iron Polysaccharide Complex 150 MG CAPSULE PO (07:45)
[2021-04-14] MEDS: traMADol 50 MG Tablet PO ×2 (11:54→22:03)
[2021-04-14 14:49] VITALS: BP 124/68; PULSE 81; RESP 18; TEMP 36.4; O2SAT 97
[2021-04-14 20:30] VITALS: PULSE 65; RESP 16; O2SAT 96
[2021-04-14] MEDS: Atorvastatin Calcium 40 MG Tablet PO (20:42)
[2021-04-14] MEDS: Aspirin 81 MG TAB.CHEW PO (20:43)
[2021-04-14] MEDS: MELATONIN 10 MG TABLET PO (22:03)
[2021-04-15] MEDS: Polyethylene Glycol 3350 17 GM PACKET PO (06:09)
[2021-04-15] MEDS: Escitalopram Oxalate 10 MG Tablet PO (06:09)
[2021-04-15] MEDS: Acetaminophen 500 MG Tablet 1000 MG PO ×3 (06:10→20:24)
[2021-04-15] MEDS: Senna/Docusate Sodium 1 Tablet 2 TABLET PO (06:10)
[2021-04-15 06:11] VITALS: BP 155/82; PULSE 65
[2021-04-15] MEDS: Metoprolol(XL)Succ 50 MG Tablet PO (06:11)
[2021-04-15] MEDS: Pantoprazole Sodium 40 MG Tablet PO (06:12)
--- NOTE | 2021-04-15 06:16 | NURSING ---
Pt had some confusion this a.m. Pt stated that he didn't need medicine for his heart (Metoprolol) and doesn't take it at home. Pt did take stool softeners this a.m. with no hesitation, though.
[2021-04-15] MEDS: Iron Polysaccharide Complex 150 MG CAPSULE PO (08:24)
[2021-04-15] MEDS: Vitamin B Comp W-C Capsule 1 CAP PO (08:24)
[2021-04-15] MEDS: Multivitamins,Therapeutic Tablet 1 TABLET PO (08:24)
[2021-04-15] MEDS: traMADol 50 MG Tablet PO (12:18)
[2021-04-15 15:38] VITALS: BP 148/62; PULSE 66; RESP 17; TEMP 36.4; O2SAT 94
[2021-04-15] MEDS: Aspirin 81 MG TAB.CHEW PO (20:24)
[2021-04-15] MEDS: Atorvastatin Calcium 40 MG Tablet PO (20:24)
[2021-04-15 20:36] VITALS: PULSE 83; RESP 18; O2SAT 93
[2021-04-15] MEDS: Menthol/Lanolin/Calamine/Znox 113 GM Tube 1 APPLIC TOPICAL (21:25)
[2021-04-16] MEDS: Polyethylene Glycol 3350 17 GM PACKET PO (06:33)
[2021-04-16] MEDS: traMADol 50 MG Tablet PO ×2 (06:35→11:30)
[2021-04-16] MEDS: Senna/Docusate Sodium 1 Tablet 2 TABLET PO ×2 (06:35→16:54)
[2021-04-16] MEDS: Acetaminophen 500 MG Tablet 1000 MG PO ×3 (06:35→20:52)
[2021-04-16 06:36] VITALS: BP 166/95; PULSE 77
[2021-04-16] MEDS: Metoprolol(XL)Succ 50 MG Tablet PO (06:36)
[2021-04-16] MEDS: Escitalopram Oxalate 10 MG Tablet PO (06:36)
[2021-04-16] MEDS: Pantoprazole Sodium 40 MG Tablet PO (06:36)
[2021-04-16] MEDS: Menthol/Lanolin/Calamine/Znox 113 GM Tube 1 APPLIC TOPICAL ×2 (06:36→20:50)
[2021-04-16] MEDS: Vitamin B Comp W-C Capsule 1 CAP PO (08:29)
[2021-04-16] MEDS: Iron Polysaccharide Complex 150 MG CAPSULE PO (08:30)
[2021-04-16] MEDS: Multivitamins,Therapeutic Tablet 1 TABLET PO (08:30)
[2021-04-16 10:00] VITALS: RESP 18
[2021-04-16 16:00] VITALS: BP 143/67; PULSE 65; RESP 18; TEMP 36.4; O2SAT 92
--- NOTE | 2021-04-16 16:22 | CASEMGMT ---
Social Work Spoke with patient's to update her insurance approved with NRD 04/20 and most likely issue a NOMNC. will take pt home, but stressed he needs to be able to be independent with steps, bed mobility and tx or she cannot help him. He has no DME needs at [place]. SW to order [facility] PT/OT/SN. [place]UCILLE to continue to follow. Danyelle Lisa, GIS ANALYST DEVELOPER ARABIC PROFESSOR
[2021-04-16] MEDS: Aspirin 81 MG TAB.CHEW PO (20:51)
[2021-04-16] MEDS: Atorvastatin Calcium 40 MG Tablet PO (20:51)
[2021-04-17] MEDS: traMADol 50 MG Tablet PO ×2 (02:01→12:14)
[2021-04-17] MEDS: Polyethylene Glycol 3350 17 GM PACKET PO (05:24)
[2021-04-17] MEDS: Pantoprazole Sodium 40 MG Tablet PO (05:24)
[2021-04-17] MEDS: Senna/Docusate Sodium 1 Tablet 2 TABLET PO ×2 (05:24→18:33)
[2021-04-17] MEDS: Acetaminophen 500 MG Tablet 1000 MG PO ×2 (05:24→20:46)
[2021-04-17 05:25] VITALS: BP 185/79; PULSE 71
[2021-04-17] MEDS: Escitalopram Oxalate 10 MG Tablet PO (05:25)
[2021-04-17] MEDS: Metoprolol(XL)Succ 50 MG Tablet PO (05:25)
[2021-04-17] MEDS: Menthol/Lanolin/Calamine/Znox 113 GM Tube 1 APPLIC TOPICAL ×2 (05:26→18:34)
[2021-04-17 08:09] LABS: Absolute Lymphocyte Count 1.52 X10^3/uL (0.83-4.51); Absolute Neutrophil Count 4.3 X10^3/uL (2.0-7.7); Basophil# 0.03 X10^3/uL; Basophil% 0.5 % (0-1); Eosinophil# 0.05 X10^3/uL; Eosinophils% 0.8 % (0-5); Hematocrit 38.5 % (40-54); Hemoglobin 12.2 g/dL (13.0-16.5); Lymphocyte # 1.52 X10^3/ul (0.83-4.51); Mean Corp Hgb Conc 31.7 g/dL (32-36); Mean Corpuscular Hgb 30.7 pg (27.0-32.0); Mean Corpuscular Volume 96.7 fL (80-94); Mean Platelet Vol. 8.7 fl (6.2-12.0); Monocyte# 0.72 X10^3/uL; Monocyte% 10.9 % (0-10); NRBC Flagged by Analyzer 0 % (0-5); Neutrophil # 4.28 X10^3/uL (2.7-7.7); Neutrophil % 64.5 % (47-70); Platelet Count 295 K/mm3 (150-450); RBC Distribution Width CV 14.8 % (11.6-14.6); RBC Distribution Width SD 52.7 fl (35.1-43.9); Red Blood Count 3.98 M/mm3 (4.6-6.2); White Blood Count 6.6 K/mm3 (4.4-11.0)
[2021-04-17 08:54] LABS: Anion Gap 8 (5-15); BUN 14 mg/dL (7-18); BUN/Creat Ratio 12.6 RATIO (10-20); Calcium,Total 9.8 mg/dL (8.5-10.1); Chloride 103 mmol/L (98-107); Creatinine, Serum 1.11 mg/dL (0.70-1.30); EST Glomerular Filtration Rate 67 mL/min (>60); Est Glom Filt Rate - Afr Amer 81 mL/min (>60); Estimated Creatinine Clearance 55.35 ml/min; Glucose 100 mg/dL (74-106); Potassium 4.3 mmol/L (3.5-5.1); Sodium Level 138 mmol/L (136-145)
[2021-04-17] MEDS: Vitamin B Comp W-C Capsule 1 CAP PO (09:20)
[2021-04-17] MEDS: Iron Polysaccharide Complex 150 MG CAPSULE PO (09:20)
[2021-04-17] MEDS: Multivitamins,Therapeutic Tablet 1 TABLET PO (09:21)
[2021-04-17 13:24] VITALS: BP 136/60; PULSE 72; RESP 17; TEMP 36.5; O2SAT 95
[2021-04-17] MEDS: MELATONIN 10 MG TABLET PO (20:45)
[2021-04-17] MEDS: Aspirin 81 MG TAB.CHEW PO (20:46)
[2021-04-17] MEDS: Atorvastatin Calcium 40 MG Tablet PO (20:46)
--- NOTE | 2021-04-17 23:42 | NURSING ---
SHIFT CLINICAL FINDINGS CHARTED BY THIS NURSE S UMER, NOT Marisol HDZ. PREVIOUS NURSE WAS ACCIDENTALLY STILL LOGGED IN.
[2021-04-17 23:44] VITALS: BP 139/42; PULSE 103; RESP 24; O2SAT 93
[2021-04-18] MEDS: Escitalopram Oxalate 10 MG Tablet PO (05:36)
[2021-04-18] MEDS: Acetaminophen 500 MG Tablet 1000 MG PO ×2 (05:36→14:55)
[2021-04-18] MEDS: Senna/Docusate Sodium 1 Tablet 2 TABLET PO ×2 (05:37→18:01)
[2021-04-18] MEDS: Pantoprazole Sodium 40 MG Tablet PO (05:38)
[2021-04-18 05:39] VITALS: BP 154/74; PULSE 65
[2021-04-18] MEDS: Metoprolol(XL)Succ 50 MG Tablet PO (05:39)
[2021-04-18] MEDS: Menthol/Lanolin/Calamine/Znox 113 GM Tube 1 APPLIC TOPICAL ×2 (05:41→18:01)
[2021-04-18] MEDS: Multivitamins,Therapeutic Tablet 1 TABLET PO (09:04)
[2021-04-18] MEDS: Iron Polysaccharide Complex 150 MG CAPSULE PO (09:04)
[2021-04-18] MEDS: Vitamin B Comp W-C Capsule 1 CAP PO (09:05)
[2021-04-18 11:00] VITALS: RESP 18
[2021-04-18 15:36] VITALS: BP 145/62; PULSE 64; RESP 16; TEMP 36.4; O2SAT 97
[2021-04-18] MEDS: Atorvastatin Calcium 40 MG Tablet PO (21:16)
[2021-04-18] MEDS: Aspirin 81 MG TAB.CHEW PO (21:16)
[2021-04-18] MEDS: MELATONIN 10 MG TABLET PO (21:19)
[2021-04-19] MEDS: Escitalopram Oxalate 10 MG Tablet PO (05:10)
[2021-04-19] MEDS: Acetaminophen 500 MG Tablet 1000 MG PO ×3 (05:10→21:03)
[2021-04-19 05:11] VITALS: BP 177/79; PULSE 72
[2021-04-19] MEDS: Senna/Docusate Sodium 1 Tablet 2 TABLET PO ×2 (05:11→17:40)
[2021-04-19] MEDS: Metoprolol(XL)Succ 50 MG Tablet PO (05:11)
[2021-04-19] MEDS: Pantoprazole Sodium 40 MG Tablet PO (05:11)
[2021-04-19] MEDS: Menthol/Lanolin/Calamine/Znox 113 GM Tube 1 APPLIC TOPICAL ×2 (05:13→17:41)
[2021-04-19] MEDS: Vitamin B Comp W-C Capsule 1 CAP PO (08:03)
[2021-04-19] MEDS: Iron Polysaccharide Complex 150 MG CAPSULE PO (08:03)
[2021-04-19] MEDS: Multivitamins,Therapeutic Tablet 1 TABLET PO (08:03)
--- NOTE | 2021-04-19 11:53 | NURSING ---
Pump Operator Byproducts Note: Res has been keeping up with news daily through newspaper and TV. visits most days. Resident states that he has no needs at this time. Prefers to stay in room.
[2021-04-19] MEDS: traMADol 50 MG Tablet PO (12:39)
[2021-04-19 13:12] VITALS: BP 140/68; PULSE 73; RESP 18; TEMP 36.4; O2SAT 97
--- NOTE | 2021-04-19 15:41 | NURSING ---
Addendum entered by Kalyn Longoria 04/19/21 19:00: Dr. Sun updated N.O u/a C&S Original Note: Pt c/o pain/burning with urination says it started a couple of days ago, denies pain in back/abdomen, unable to assess urine at this time.
[2021-04-19 20:02] LABS: Mucous, Urine 0 SEEN /hpf (<or=2+); Squamous Epithelial Cells - UA 0 SEEN /hpf (0-5)
[2021-04-19 20:06] LABS: Color, Urine Yellow (Yellow); Glucose, Dipstick Normal (Normal); Ketone-Dipstick 5 mg/dl (Negative); Leukocyte Esterase-Dipstick 25 /ul (Negative); Nitrite-Dipstick Negative (Negative); Occult Blood-Urine 10 /ul (Negative); Protein-Dipstick 15 mg/dl (Negative); Specific Gravity, Urine 1.025 (1.002-1.030); Urine Bilirubin Dipstick Negative (Negative); Urine Clarity Clear (Clear); Urine Urobilinogen 1 mg/dl (Normal)
[2021-04-19 20:17] LABS: Red Blood Cells-Urine 0-5 SEEN /hpf (0-5); White Blood Cells 10-25 SEEN /hpf (0-5)
[2021-04-19 20:18] LABS: Bacteria RARE /hpf (None Seen); Calcium Oxalate Crystals Ur 1+ /hpf (<or=2+)
[2021-04-19] MEDS: Atorvastatin Calcium 40 MG Tablet PO (21:03)
[2021-04-19] MEDS: Aspirin 81 MG TAB.CHEW PO (21:03)
[2021-04-19] MEDS: MELATONIN 10 MG TABLET PO (21:05)
[2021-04-20] MEDS: Senna/Docusate Sodium 1 Tablet 2 TABLET PO ×2 (05:31→16:44)
[2021-04-20] MEDS: Escitalopram Oxalate 10 MG Tablet PO (05:31)
[2021-04-20] MEDS: Acetaminophen 500 MG Tablet 1000 MG PO ×3 (05:31→19:49)
[2021-04-20] MEDS: Menthol/Lanolin/Calamine/Znox 113 GM Tube 1 APPLIC TOPICAL ×2 (05:31→16:44)
[2021-04-20] MEDS: Pantoprazole Sodium 40 MG Tablet PO (05:32)
[2021-04-20 05:33] VITALS: BP 153/73; PULSE 64
[2021-04-20] MEDS: Metoprolol(XL)Succ 50 MG Tablet PO (05:33)
[2021-04-20] MEDS: Multivitamins,Therapeutic Tablet 1 TABLET PO (08:09)
[2021-04-20] MEDS: Iron Polysaccharide Complex 150 MG CAPSULE PO (08:09)
[2021-04-20] MEDS: Vitamin B Comp W-C Capsule 1 CAP PO (08:09)
[2021-04-20 10:45] VITALS: PULSE 100; RESP 18; O2SAT 92
--- NOTE | 2021-04-20 12:20 | PHA.CONS_ITS ---
Progress Note - Pharmacy Subjective: PHARMACY MONTHLY MEDICATION REVIEW Objective: Allergies Penicillins Allergy (Verified 03/22/21 14:40) Hives Current Medications Generic Name Dose Route Start Last Admin Trade Name Yamil PRN Reason Stop Dose Admin Acetaminophen 1,000 mg 03/26/21 21:24 Acetaminophen 500 Mg Tablet PO QHS PRN Sleep Acetaminophen 1,000 mg 03/31/21 22:00 04/20/21 05:31 Acetaminophen 500 Mg Tablet PO 1,000 mg Q8 BRITTNEY Administration Aspirin 81 mg 04/14/21 22:00 04/19/21 21:03 Aspirin 81 Mg Tab.Chew PO 81 mg QHS BRITTNEY Administration Atorvastatin Calcium 40 mg 03/26/21 22:00 04/19/21 21:03 Atorvastatin Calcium 40 Mg Tablet PO 40 mg QHS BRITTNEY Administration Bisacodyl 10 mg 03/26/21 18:05 Bisacodyl 10 Mg Suppository RC DAILY PRN Constipation Calamine/Phenol 1 applic 04/01/21 18:00 04/20/21 05:31 Menthol/Lanolin/Calamine/Znox 113 Gm Tube TOPICAL 1 applic BID BRITTNEY Administration Protocol Escitalopram Oxalate 10 mg 03/30/21 06:00 04/20/21 05:31 Escitalopram Oxalate 10 Mg Tablet PO 10 mg DAILY BRITTNEY Administration Sodium Chloride 250 mls @ 15 mls/hr 04/02/21 14:36 IV .[id number] PRN Saline Flush Sodium Chloride 250 mls @ 15 mls/hr 04/02/21 14:36 IV .[id number] PRN Additional IVPB Infusion Melatonin 10 mg 03/26/21 21:22 04/19/21 21:05 Melatonin 10 Mg Tablet PO 10 mg QHS PRN Administration INSOMNIA Metoprolol Succinate 50 mg 04/05/21 06:00 04/20/21 05:33 Metoprolol(Xl)Succ 50 Mg Tablet PO 50 mg DAILY BRITTNEY Administration Multivitamins 1 tablet 03/27/21 08:00 04/20/21 08:09 Multivitamins,Therapeutic Tablet PO 1 tablet 0800 BRITTNEY Administration Multivitamins 1 capsule 03/27/21 08:00 04/20/21 08:09 Vitamin B Comp W-C Capsule PO 1 capsule 0800 BRITTNEY Administration Nitroglycerin 0.4 mg 03/26/21 19:01 Nitroglycerin (Inpatient Use) 0.4 Mg Tab.Subl SL Q5M PRN CARDIAC/CHEST PAIN Pantoprazole Sodium 40 mg 03/27/21 06:00 04/20/21 05:32 Pantoprazole Sodium 40 Mg Tablet PO 40 mg DAILY BRITTNEY Administration Polyethylene Glycol 17 gm 03/27/21 06:00 04/20/21 05:32 Polyethylene Glycol 3350 17 Gm Packet PO Not Given DAILY BRITTNEY Polysaccharide Iron Complex 150 mg 03/28/21 08:00 04/20/21 08:09 Iron Polysaccharide Complex 150 Mg Capsule PO 150 mg DAILYCM BRITTNEY Administration Senna/Docusate Sodium 2 tablet 03/27/21 06:00 04/20/21 05:31 Senna/Docusate Sodium 1 Tablet PO 2 tablet BID BRITTNEY Administration Sodium Chloride 10 - 40 ml 04/02/21 14:36 04/09/21 09:11 0.9% Saline Lock 10 Ml Syringe IV 10 ml UD PRN Administration SALINE FLUSH Tramadol HCl 50 mg 03/26/21 17:58 04/17/21 02:01 Tramadol 50 Mg Tablet PO 50 mg Q6H PRN PRN Administration Pain Score 4-10 Tramadol HCl 50 mg 04/02/21 12:30 04/19/21 12:39 Tramadol 50 Mg Tablet PO 50 mg 1230 PENDING SALE TO [facility] Administration Tramadol HCl 50 mg 04/14/21 06:00 04/20/21 05:32 Tramadol 50 Mg Tablet PO Not Given 0600 PENDING SALE TO [facility] Problem List (Last Reviewed 03/26/21 @ 21:[address] Hero Sun MD) Insomnia (Acute) Hyperlipidemia (Acute) Coronary artery disease (Acute) Gastroesophageal reflux disease (Acute) Depression (Acute) Hyponatremia (Acute) Closed left hip fracture (Acute) Debility (Acute) Vital Signs Temp Pulse Resp BP Pulse Ox 97.6 F L 64 18 153/73 H 97 04/19/21 13:12 04/20/21 05:33 04/19/21 13:12 04/20/21 05:33 04/19/21 13:12 Oxygen Flow Rate (L/min) 10 Oxygen Delivery Method Room Air Weight: 101.287 kg Body Mass Index (BMI) 29.6 Sodium 138 mmol/L (136-145) 04/17/21 07:51 Potassium 4.3 mmol/L (3.5-5.1) 04/17/21 07:51 Chloride 103 mmol/L (98-107) 04/17/21 07:51 Carbon Dioxide 27.0 mmol/L (21.0-32.0) 04/17/21 07:51 Anion Gap 8 (5-15) 04/17/21 07:51 BUN 14 mg/dL (7-18) 04/17/21 07:51 Creatinine 1.11 mg/dL (0.70-1.30) 04/17/21 07:51 Est GFR (MDRD) Af Amer 81 mL/min (>60) 04/17/21 07:51 Est GFR (MDRD) Non-Af 67 mL/min (>60) 04/17/21 07:51 BUN/Creatinine Ratio 12.6 RATIO (10-20) 04/17/21 07:51 Glucose 100 mg/dL (74-106) 04/17/21 07:51 Assessment/Plan: 1. Pain: Tylenol 1000mg PO Q8, Tramadol 50mg PO 0600,1230 and Tramadol 50mg PO Q6h PRN pain 4-10. Please continue to monitor for S/S of pain, PRN usage, respiratory depression and constipation. 2. DVT Prophylaxis: Not on medication currently, finished up Eliqu on 04/13/21 for post-op DVT prevention. Please continue to monitor patient for any signs of blood clots. 3. CAD: Aspirin 81mg PO QHS, Lipitor 40mg PO QHS, Toprol XL 50mg PO Daily, Nitrostat 0.4mg PO Q5min PRN. Please continue to monitor for S/S bleeding/bruising, BP, HR, hemoglobin, S/S muscle pain, lipid panel annually or sooner if clinically indicated. 4. Insomnia: Tylenol 1000mg PO QHS PRN, Melatonin 10mg PO QHS PRN. Please c ontinue to monitor for medication effectiveness. If medication ineffective, may try to give melatonin 2-3hrs prior to desired bedtime and encourage non- pharmacologic treatment as well to promote healthy sleep. 5. GERD: Protonix 40mg PO Daily. Please continue to monitor for GERD flare-ups, medication effectiveness. May also promote non-pharmacologic treatment to help reduce GERD flare-ups as well. 6. Iron Deficiency: Ferrex 150mg PO Daily. Please conitnue to monitor Hgb, iron studies as clinically indicated, S/S bleeding. 7. General Wellness: Complete B Vitamin w/ Vitamin C 1 cap PO Daily, MVI 1 tab PO Daily. Please continue to monitor Psychotropic Medications: 1. Depression: escitalopram 10mg PO daily. Please see physician note regarding GDR in H/P. Unnecessary Medications: None *Bowel Regimen: Miralax 17g PO daily, Senna/Docusate 2 tab PO BID, Dulcolax 10mg [place] Daily PRN. Patient has refused several Miralax doses, please consider changing to PRN status, as patient not taking on a scheduled basis as prescribed, thank you. Date of Note:: 04/20/21
[2021-04-20] MEDS: traMADol 50 MG Tablet PO (12:56)
--- NOTE | 2021-04-20 14:21 | NURSING ---
ORTHOPEDIC OFFICE CALLED AND STATED THEY WILL PUT A ORDER FOR X RAYS TO LT HIP IN DUE TO PAIN AND CLICKING SOUND WHEN HE WALKS. RN AWARE. UPDATED.
[2021-04-20 14:34] VITALS: BP 135/75; PULSE 81; RESP 20; TEMP 36.4; O2SAT 92
--- NOTE | 2021-04-20 15:25 | NURSING ---
Vivi SAMANO called requesting Bilateral Hip X-ray with 2 views. Order read back.
--- NOTE | 2021-04-20 15:42 | RAD_ITS ---
STUDY: X-RAY - PELVIS AND BILATERAL HIPS REASON FOR EXAM: Male, 85 years old. left hip fx, surgery 4 weeks ago. current left hip pain TECHNIQUE: AP view of the pelvis.? 2 views of the right hip, and 2 views of the left hip were obtained. COMPARISON: None. FINDINGS: There is a non-specific bowel gas pattern. Normal visualized soft tissue structures. Bilateral hips and femoral intramedullary rods and proximal interlocking hardware reidentified. No demonstrated hardware complications or acute osseous abnormalities. Healed fracture deformities of both extremities reidentified. No demonstrated acute fracture. The bilateral hip joints are mildly narrowed. Normal bilateral iliac wings, sacroiliac joints and visualized sacrum. Normal bilateral superior and inferior pubic rami. Normal pubic symphysis. Normal bilateral ischial tuberosities. RAD/Hips B/L min 2 views w/ Pelvis IMPRESSION: No visualized acute process Electronically Signed: Colton Velázquez MD at 20:53 EST , Service support ,
[2021-04-20] MEDS: Aspirin 81 MG TAB.CHEW PO (19:50)
[2021-04-20] MEDS: Atorvastatin Calcium 40 MG Tablet PO (19:50)
[2021-04-21 07:10] VITALS: BP 158/75; PULSE 70
[2021-04-21] MEDS: Menthol/Lanolin/Calamine/Znox 113 GM Tube 1 APPLIC TOPICAL ×2 (07:10→17:05)
[2021-04-21] MEDS: Pantoprazole Sodium 40 MG Tablet PO (07:10)
[2021-04-21] MEDS: Escitalopram Oxalate 10 MG Tablet PO (07:10)
[2021-04-21] MEDS: Metoprolol(XL)Succ 50 MG Tablet PO (07:10)
[2021-04-21] MEDS: Acetaminophen 500 MG Tablet 1000 MG PO ×3 (07:10→19:56)
[2021-04-21] MEDS: Senna/Docusate Sodium 1 Tablet 2 TABLET PO ×2 (07:10→17:04)
[2021-04-21] MEDS: traMADol 50 MG Tablet PO ×2 (07:14→07:15)
[2021-04-21] MEDS: Iron Polysaccharide Complex 150 MG CAPSULE PO (08:14)
[2021-04-21] MEDS: Vitamin B Comp W-C Capsule 1 CAP PO (08:14)
[2021-04-21] MEDS: Multivitamins,Therapeutic Tablet 1 TABLET PO (08:15)
--- NOTE | 2021-04-21 12:48 | NURSING ---
Spoke to resident and to inform of staff members testing positive for COVID-19. Both resident and voiced understanding of procedures.
[2021-04-21 12:51] VITALS: BP 133/62; PULSE 62; RESP 14; TEMP 36.7; O2SAT 95
--- NOTE | 2021-04-21 14:53 | CASEMGMT ---
Social Work Insurance issued LCD 04/23, DC 04/24. Spoke with and pt. They would like to DC 04/23. Requesting [facility] as they used them prior. Referral made for PT/OT. No DME needs. to transport. Plan: DC home with 04/23, [facility] PT/OT ANNA FuchsW
--- NOTE | 2021-04-21 15:18 | NURSING ---
dr connelly from [facility] called in and from xray hip done yest no changes in hardware or anything to possibly cause clicking sound none heard today when walked to br with this rn. will monitor
[2021-04-21] MEDS: Aspirin 81 MG TAB.CHEW PO (19:56)
[2021-04-21] MEDS: Atorvastatin Calcium 40 MG Tablet PO (19:56)
--- NOTE | 2021-04-21 20:24 | PCM.DC.SUM ---
Providers Date of Admission: 03/26/21 Primary Care Physician: Dr. 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 Routine Comment: Reason for Consult:: Pressure injury rt buttock Reason For Visit: INTERTROCHANTERIC L HIP FRACTURE Diagnosis Discharge Diagnosis (1) Debility: Status: Acute Code(s): R53.81 - Other malaise (2) Closed left hip fracture: Status: Acute Code(s): S72.002A - Fracture of unspecified part of neck of left femur, initial encounter for closed fracture (3) Hyponatremia: Status: Acute Code(s): E87.1 - Hypo-osmolality and hyponatremia (4) Depression: Status: Acute Code(s): F32.A - Depression, unspecified (5) Gastroesophageal reflux disease: Status: Acute Code(s): K21.9 - Gastro-esophageal reflux disease without esophagitis (6) Coronary artery disease: Status: Acute Code(s): I25.10 - Atherosclerotic heart disease of [place] coronary artery without angina pectoris (7) Hyperlipidemia: Status: Acute Code(s): E78.5 - Hyperlipidemia, unspecified (8) Insomnia: Status: Acute Code(s): G47.00 - Insomnia, unspecified Medications at Discharge Home Medications aspirin 81 mg PO QHS 04/10/17 lansoprazole 30 mg capsule,delayed release 30 mg PO DAILY PRN PRN cap 10/11/17 multivitamin 1 tab PO DAILY 05/20/20 nitroglycerin 0.4 mg sublingual tablet 0.4 mg SUBLINGUAL Q5-15M PRN #25 tab 11/26/20 atorvastatin 40 mg tablet 40 mg PO QHS #90 tab 12/07/20 vitamin B complex 1 cap PO DAILY 03/22/21 acetaminophen 1,000 mg PO Q8 #0 tab 04/21/21 acetaminophen 1,000 mg PO QHS PRN #0 tab 04/21/21 escitalopram oxalate 10 mg PO DAILY 30 Days #30 tab 04/21/21 metoprolol succinate 50 mg PO DAILY 30 Days #30 tab 04/21/21 polysaccharide iron complex [Ferrex 150] 150 mg PO DAILYCM 30 Days #30 cap 04/21/21 tramadol 50 mg PO 1230 14 Days #14 tab 04/21/21 Hospital Course Operations - (Left hip cephalo-medullary nail fixation.) Procedures None Summary of Care Provided Minutes Spent on Discharge: 35 Hospital Course: 85 year old male with below past medical history hospitalized for left hip fracture, underwent left hip cephalomedullary nail fixation 03/23/[address] Verdin, postoperative course complicated by hyponatremia, admitted to TCU with debility, here for rehabilitation, strengthening, prior to discharge home with . Discharge home with 04/23/2021, [facility] PT/OT. Physical Exam Const alert and oriented x3 General Appearance: cooperative HEENT normocephalic Eyes PERRL and EOMs intact bilaterally Neck supple, no JVD and no carotid bruits Resp normal respiratory effort, normal air movement and clear to auscultation bilaterally Cardio regular rate and regular rhythm GI normal to inspection, nondistended, normoactive bowel sounds, non-tender and non-distended Extremity normal capillary refill General Extremity: Negative for edema Skin no rashes or lesions noted General Skin Exam: no breakdown Psych affect normal Appearance: appropriate Weight / BMI Weight Weight: 97.976 kg Body Mass Index (BMI) 29.6 ABG / Lab / Microbiology Data Result Diagrams: 04/17/21 07:57 04/17/21 07:51 Microbiology: Microbiology 04/19/21 19:55 Urine, Clean Catch Urine Culture - Preliminary Mixed Gram Positive Organisms Radiography Diagnostic Testing: Radiology Impression Hip/Pelvis X-Ray 04/20/21 15:42 IMPRESSION: No visualized acute process Electronically Signed: Colton Velázquez MD at 20:53 EST , Service support , D/C Instructions Discharge Diet: No restrictions Discharge Activity: Return to Normal Activity, May Shower and Use Walker May resume sexual activity in: 6-8 weeks Weight Bearing Status: Weight bearing as tolerated Call your doctor if you observe: Fever of 101 or Higher, Inability to urinate, Inability to have a bowel movement, Shortness of breath, Dizziness, Fainting spells, Swelling in the ankles, Chest pain and Uncontrolled pain Additional Instructions: Discharge home with 04/23/2021, [facility] PT/OT. Please Follow Up With: Carlitos King MD When: 1 week. Meaningful Use Info Meaningful Use Diagnoses (Choose all that apply): None applicable Discharge Plan Admission Admit Date/Time: 03/26/21 17:49 Primary Reason for Your Visit: Debility. Attending Provider: Hero Sun Chi Primary Care Provider: Carlitos King Instructions Additional Instructions / Restrictions: Discharge home with 04/23/2021, [facility] PT/OT. Discharge Orders/Prescriptions Prescriptions: New metoprolol succinate 50 mg Tablet Extended Release 24 Hr 50 mg PO DAILY 30 Days Qty: 30 RF: 0 polysaccharide iron complex [Ferrex 150] 150 mg iron Capsule 150 mg PO DAILYCM 30 Days Qty: 30 RF: 0 tramadol 50 mg Tablet 50 mg PO 1230 14 Days Qty: 14 RF: 0 acetaminophen 500 mg Tablet 1,000 mg PO QHS PRN (Reason: Sleep) Qty: 0 RF: 0 acetaminophen 500 mg Tablet 1,000 mg PO Q8 Qty: 0 RF: 0 escitalopram oxalate 10 mg Tablet 10 mg PO DAILY 30 Days Qty: 30 RF: 0 Continued multivitamin Tablet 1 tab PO DAILY RF: 0 nitroglycerin 0.4 mg tablet, sublingual 0.4 mg SUBLINGUAL Q5-15M PRN (Reason: chest pain) Qty: 25 RF: 3 aspirin 81 MG tablet,chewable 81 mg PO QHS RF: 0 lansoprazole 30 mg capsule,delayed release(DR/EC) 30 mg PO DAILY PRN PRN (Reason: acid reflux) RF: 0 vitamin B complex Capsule 1 cap PO DAILY RF: 0 atorvastatin 40 mg tablet 40 mg PO QHS Qty: 90 RF: 3 Discontinued escitalopram oxalate [Lexapro] 5 mg tablet 5 mg PO DAILY RF: 0 docusate sodium 100 MG capsule 100 mg PO BID RF: 0 acetaminophen [Tylenol] 325 mg Tablet 650 mg PO Q6H PRN PRN (Reason: Pain Score 1-10/Temp > 100.7 F) Qty: 0 RF: 0 tramadol 50 mg Tablet 50 mg PO Q6H PRN PRN (Reason: Pain Score 4-10) Qty: 0 RF: 0 acetaminophen 500 mg Tablet 500 - 1,000 mg PO QHS PRN (Reason: Sleep) Qty: 0 RF: 0 diphenhydramine HCl [Banophen] 25 mg Capsule 25 - 50 mg PO QHS PRN (Reason: Sleep) Qty: 0 RF: 0 tamsulosin 0.4 mg capsule 0.4 mg PO DAILY@1730 RF: 0 Eliquis 2.5 mg tablet 2.5 mg PO BID RF: 0 metoprolol succinate 25 mg tablet extended release 24 hr 25 mg PO DAILY Qty: 90 RF: 3 Referrals / Follow Up: Carlitos King MD [Primary Care Provider] - Marco Verdin DO [STAFF PHYSICIAN] - 05/05/21 10:00 am (f/u in four weeks from 04/07/21) Disposition Disposition (needs filled in before D/C Order can be placed): Home Health Service
--- NOTE | 2021-04-21 21:59 | NURSING ---
notified via telephone of preliminary urine culture results, no new orders received.
[2021-04-22] MEDS: traMADol 50 MG Tablet PO ×2 (06:37→12:35)
[2021-04-22 06:38] VITALS: BP 184/88; PULSE 68
[2021-04-22] MEDS: Pantoprazole Sodium 40 MG Tablet PO (06:38)
[2021-04-22] MEDS: Acetaminophen 500 MG Tablet 1000 MG PO ×3 (06:38→20:44)
[2021-04-22] MEDS: Senna/Docusate Sodium 1 Tablet 2 TABLET PO ×2 (06:38→16:26)
[2021-04-22] MEDS: Metoprolol(XL)Succ 50 MG Tablet PO (06:38)
[2021-04-22] MEDS: Escitalopram Oxalate 10 MG Tablet PO (06:38)
[2021-04-22] MEDS: Menthol/Lanolin/Calamine/Znox 113 GM Tube 1 APPLIC TOPICAL ×2 (06:39→16:27)
[2021-04-22] MEDS: Vitamin B Comp W-C Capsule 1 CAP PO (08:27)
[2021-04-22] MEDS: Iron Polysaccharide Complex 150 MG CAPSULE PO (08:27)
[2021-04-22] MEDS: Multivitamins,Therapeutic Tablet 1 TABLET PO (08:27)
--- NOTE | 2021-04-22 10:57 | CASEMGMT ---
Social Work BIMS and PHQ-9 completed for MDS assessment. 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
--- NOTE | 2021-04-22 13:59 | NURSING ---
Resident informed of staff members testing positive for COVID.
[2021-04-22 15:55] VITALS: BP 128/68; PULSE 58; RESP 20; TEMP 36.8; O2SAT 95
[2021-04-22] MEDS: Aspirin 81 MG TAB.CHEW PO (20:44)
[2021-04-22] MEDS: Atorvastatin Calcium 40 MG Tablet PO (20:44)
[2021-04-22] MEDS: MELATONIN 10 MG TABLET PO (20:46)
[2021-04-23 06:54] VITALS: BP 169/78; PULSE 66
[2021-04-23] MEDS: Polyethylene Glycol 3350 17 GM PACKET PO (06:56)
[2021-04-23 06:57] VITALS: PULSE 66
[2021-04-23] MEDS: Metoprolol(XL)Succ 50 MG Tablet PO (06:57)
[2021-04-23] MEDS: Pantoprazole Sodium 40 MG Tablet PO (06:57)
[2021-04-23] MEDS: Acetaminophen 500 MG Tablet 1000 MG PO (06:57)
[2021-04-23] MEDS: Senna/Docusate Sodium 1 Tablet 2 TABLET PO (06:57)
[2021-04-23] MEDS: Escitalopram Oxalate 10 MG Tablet PO (06:57)
[2021-04-23] MEDS: Menthol/Lanolin/Calamine/Znox 113 GM Tube 1 APPLIC TOPICAL (06:58)
[2021-04-23] MEDS: traMADol 50 MG Tablet PO (07:05)
[2021-04-23] MEDS: Iron Polysaccharide Complex 150 MG CAPSULE PO (08:50)
[2021-04-23] MEDS: Multivitamins,Therapeutic Tablet 1 TABLET PO (08:50)
[2021-04-23] MEDS: Vitamin B Comp W-C Capsule 1 CAP PO (08:50)
--- NOTE | 2021-04-23 09:31 | NURSING ---
Pt declines to have RADHA wraps to sent home at nd today stating, I won't wear them.
[2021-04-23 11:16] VITALS: BP 146/57; PULSE 64; RESP 16; TEMP 36.7; O2SAT 92
== END 2021-04-23 11:36 | disposition home health service (06) | DRG 561 ==
PROVIDERS: Admitting Provider Family Medicine Geriatric Medicine; PCP Family Medicine; Visit Provider Family Medicine Geriatric Medicine
DX: S72.002D Fracture of unspecified part of neck of left femur, subsequent encounter for closed fracture with routine healing (principal); W19.XXXD Unspecified fall, subsequent encounter; I70.219 Atherosclerosis of native arteries of extremities with intermittent claudication, unspecified extremity; I25.10 Atherosclerotic heart disease of native coronary artery without angina pectoris; I10 Essential (primary) hypertension; J44.9 Chronic obstructive pulmonary disease, unspecified; K21.9 Gastro-esophageal reflux disease without esophagitis; F32.A Depression, unspecified; E78.5 Hyperlipidemia, unspecified; N40.0 Benign prostatic hyperplasia without lower urinary tract symptoms; Z79.899 Other long term (current) drug therapy; Z79.82 Long term (current) use of aspirin; Z79.01 Long term (current) use of anticoagulants; Z87.891 Personal history of nicotine dependence
CPT/HCPCS: 36415; 73502; 73521; 80048; 81001; 85014; 85018; 85025; 87086; 87088; 87635; 92507; 92523; 97110; 97116; 97162; 97165; 97530; 97535; 97802; J7030; U0005; A4216; U0003

== ENCOUNTER 2021-05-20 07:12 | Outpatient (CLI) | payer MEDICARE, SELFPAY ==
[2021-05-20 10:44] LABS: AST(SGOT) 19 U/L (15-37); Alanine Aminotransfer ALT/SGPT 16 U/L (16-61); Albumin, Serum 3.4 g/dL (3.2-5.0); Alkaline Phosphatase 120 U/L (45-117); Bilirubin, Direct 0.18 mg/dL (0.00-0.30); Cholesterol 162 mg/dL (200); Globulin 3.9 g/dL (2.2-4.2); High Density Lipoprotein 43 mg/dL; Protein, Total 7.3 g/dL (6.4-8.2); Triglycerides 265 mg/dL; Very Low Density Lipoprotein 53 mg/dL (5-40)
== END 2021-05-20 23:59 | disposition short-term general hospital (02) ==
LOC: MTLAB 07:14
PROVIDERS: PCP Family Medicine; Referring Provider Internal Medicine Cardiovascular Disease; Visit Provider Internal Medicine Cardiovascular Disease
DX: E78.00 Pure hypercholesterolemia, unspecified (principal)
CPT/HCPCS: 36415; 80061; 80076

== ENCOUNTER 2021-06-25 10:00 | Outpatient (RCR) | payer MEDICARE, SELFPAY ==
--- NOTE | 2021-05-11 11:59 | HP.PTEVAL ---
Patient's Visit Information RANCHO MULLER is a 85 year old M referred to Physical Therapy by Dr. Marco Verdin DO with a diagnosis of L hip fx. Date of Evaluation: 05/11/21 Physical Therapist: Arcadio James, PT, ATC - Visit Plan Frequency: 3x /Week Duration: 6 Weeks Plan: L LE stretching and strengthening, balance and prorio, core stab ex's, gait training, and HEP - Subjective DOS: 03/23/21. Pt reports he was blowing leaves when he lost balance and fell which resulted in a L hip fx. Pt reports after having an intermedullary raulito inserted into his L femur, he went to the TCU for 31 days for rehabilitation. Pt reports then he had 2 weeks of home health after that. Pt reports he is still in quite a bit of pain at this time. Pt notes he has been applying ice and heat to help control his pain. Pt has steps to enter his house which he is able to negotiate going one step at a time. Pt reports he has a Hx of falls prior to this episode. Pt also notes he is limited with all IADL's such as bathing and getting dressed. No tingling or numbness in L LE. Pt reports he continues to have sleep difficulty secondary to pain. L hip pain is 2/10 pain at rest, and 9/10 pain at worst ( when he is walking). Pt reports a major goal of his is to improve his balance at this time. - Pain L hip Pain Intensity (Out of 10): 2 Pain Intensity Range: 9 - Objective Neuro: B LE sensation is WNL to light touch. B patellar reflex= 2/3. ROM: B LE's are WFL at this time. MMT: L LE is grossly rated at 4-/5 to 4/5 throughout. R LE 5/5 throughout. Gait: Pt is able to ambulate 272 feet until feeling pain and having to rest. Balance: Pt is able to SLS EO without difficulty. Pt begins to display moderate sway with EC. Pt displays unsteady balance at this time. - Balance/Special Test Scores Lower Extremity Functional Score: 7 - Goals Goal 1:: Decrease L hip pain x 50% to aid with sleep Goal Time Frame: 6-8 Weeks Goal 2:: Increase L LE strength x 1 grade to aid with stair negotiation Goal Time Frame: 6-8 Weeks Goal 3:: Pt will be able to ambulate 400 feet with least restrictive device to aid with community ambulation Goal Time Frame: 6-8 Weeks Goal 4:: I with HEP Goal Time Frame: 6-8 Weeks - Rehabilitation Potential Physical Therapy Diagnosis: Pt has L hip pain, weakness, and limited gait capacity secondary to L hip Fx Rehabilitation Potential: Good - Anticipated Interventions Patient/Client Instruction: Educate patient on: Condition, Plan of Care For the Purpose of:: To improve self management Therapeutic Exercise to Include: Strength training, Endurance training, Balance training, Gait and locomotor training, Active ROM, Dynamic Lumbar Stabilization For the Purpose of:: To decrease pain, To increase ROM, To improve muscle performance and motor function Cryotherapy (ice pack, ice massage): Yes For the Purpose of:: To decrease pain Thank you for the opportunity to evaluate your patient. For Medicare and Medicare HMO plans, please review the plan of care and approve it. It will need to be FAXED BACK to us at [phone] for Medicare purposes. For Medicare only, by signing this I certify the plan of care. Please let me know if there are questions or concerns regarding this plan of care. Physician Signature: Date:
--- NOTE | 2021-10-13 12:37 | HP.PT.NRP ---
RANCHO MULLER was seen in my office for initial evaluation on 05/11/21. The following Plan of Care was established for this patient: Initial Frequency: 3x /Week Initial Duration: 6 Weeks Patient/Client Instruction: Educate patient on: Condition, Plan of Care For the Purpose of:: To improve self management Therapeutic Exercise to Include: Strength training, Endurance training, Balance training, Gait and locomotor training, Active ROM, Dynamic Lumbar Stabilization For the Purpose of:: To decrease pain, To increase ROM, To improve muscle performance and motor function Cryotherapy (ice pack, ice massage): Yes For the Purpose of:: To decrease pain This patient was last seen in our office . Pertinent comments regarding their Physical therapy will appear below: Pt was treated for 16 PT visits for L hip Fx through the date of 06/25/21. Pt has not returned through this date and is discontinued at this time. At this point I will be discontinuing this patient from physical therapy. I would be happy to see this patient again in the future if found appropriate by the physician. Thank you! Arcadio James, PT, ATC Balance/Gait/Functional tests - Balance/Special Test Scores Lower Extremity Functional Score: 36
== END 2021-06-25 19:00 | disposition home or self-care (01) ==
LOC: PT 10:00
PROVIDERS: PCP Family Medicine; Referring Provider Orthopaedic Surgery; Visit Provider Orthopaedic Surgery
DX: Z47.89 Encounter for other orthopedic aftercare (principal)
CPT/HCPCS: 97110; 97161; 97164

== ENCOUNTER 2021-07-19 17:24 | Emergency (ER) | payer MEDICARE, SELFPAY ==
[2021-07-19 17:24] VITALS: BP 140/7; PULSE 69; RESP 18; TEMP 36.2; O2SAT 99; BMI 29.2
--- NOTE | 2021-07-19 18:11 | EKG12_ITS ---
Test Reason : CP Blood Pressure : / mmHG Vent. Rate : 065 BPM Atrial Rate : 065 BPM P-R Int : 168 ms QRS Dur : 152 ms QT Int : 422 ms P-R-T Axes : 069 -05 051 degrees QTc Int : 438 ms Normal sinus rhythm with sinus arrhythmia Right bundle branch block Abnormal ECG Confirmed by YRIS MACHUCA, KEV ([id number]), writer editor CHIP CAMACHO ([id number]) on 07/22/2021 9:14:14 AM Referred By: DEXTER/SETH Confirmed By:KEV ARNDT MD
[2021-07-19 18:39] VITALS: BP 113/69; PULSE 70; RESP 18; O2SAT 97
[2021-07-19] MEDS: Aspirin 81 MG TAB.CHEW 324 MG PO (18:48)
--- NOTE | 2021-07-19 18:49 | RAD_ITS ---
STUDY: X-RAY CHEST REASON FOR EXAM: Male, 85 years old. chest pain TECHNIQUE: Single AP portable view of the chest. COMPARISON: 03/22/2021 FINDINGS: The lungs are clear and expanded. There is no demonstrated pleural abnormality. Normal size heart. Median sternotomy wires are noted. Normal mediastinum and gareth. Normal visualized pulmonary arteries. Normal visualized aortic arch and descending thoracic aorta. Normal visualized thoracic spine. Normal visualized ribs, clavicles, and shoulders. There is no demonstrated abnormality of the visualized soft tissue structures of the upper abdomen. RAD/Chest 1 View (Portable) IMPRESSION: Normal x-ray examination of the chest. Electronically Signed: Wellington Jett DO at 19:23 EDT ,
--- NOTE | 2021-07-19 18:52 | ED.VIS.CHEST ---
HPI <Dr. Doris Mcdaniels MD - Last Filed: 07/20/21 01:11> History of Present Illness Chief Complaint: Chest Pain <GWENDOLYN ALONZO - Last Filed: 07/20/21 01:07> History of Present Illness Informant: patient Onset/Context/Timing Onset: Yesterday (morning) Activity at onset: sudden Timing: Continuous Quality: Positive for Aching Location: - (epigastric) Current Severity: 6/10 Worsened By: Nothing Relieved By: Nothing Associated Symptoms: Positive for Dyspnea (baseline for COPD) and - (Dizziness with position changes.); Negative for Nausea, Vomiting, Diaphoresis, Cough, Fever, Lightheadedness, Acid Reflux and Palpitations Narrative Narrative: Patient presents secondary to chest pain that began yesterday morning. Patient describes pain as a steady ache that radiates from epigastric region to back. Patient states his shortness of breath is at baseline for his COPD. Patient states he is dizzy with position changes. Patient states pain radiated to his right arm last night, but that has not occurred today. Patient does have nitroglycerin tablets at home to take, but patient states he has never taken these before. Patient did take his 81 mg aspirin last night. Patient states pain is currently 6 out of 10. Prior Similar Symptoms: No Recent Illness/Hospitalization: No CVD Risk Factors: Positive for Hypertension and Hypercholesterolemia PFSH <Dr. Doris Mcdaniels MD - Last Filed: 07/20/21 01:11> [facility] Medical History Aortic root dilatation Atherosclerosis of [place] arteries of extremity with intermittent claudication Atherosclerotic heart disease of [place] coronary artery without angina pectoris Benign essential HTN Bilateral carotid artery stenosis Carotid bruit COPD (chronic obstructive pulmonary disease) Depression Fall GERD (gastroesophageal reflux disease) Hip fracture History of stress test Hyperlipidemia Insomnia Left carotid artery stenosis RBBB Right femoral fracture TIA (transient ischemic attack) Home Medications lansoprazole 30 mg capsule,delayed release 30 mg PO DAILY PRN PRN cap 10/11/17 [History Last Taken Unknown] multivitamin 1 tab PO DAILY 05/20/20 [History Last Taken 03/22/21] nitroglycerin 0.4 mg sublingual tablet 0.4 mg SUBLINGUAL Q5-15M PRN #25 tab 11/26/20 [Rx Last Taken Unknown] vitamin B complex 1 cap PO DAILY 03/22/21 [History Last Taken 03/22/21] escitalopram oxalate 10 mg PO DAILY 30 Days #30 tab 04/21/21 [Rx Last Taken Unknown] polysaccharide iron complex [Ferrex 150] 150 mg PO DAILYCM 30 Days #30 cap 04/21/21 [Rx Last Taken Unknown] miscellaneous medical supply 1 ea MISCELLANEOUS .PRN PRN 360 Days #1 ea 05/05/21 [Rx Last Taken Unknown] acetaminophen 500 mg tablet 1,000 mg PO BID tab 05/24/21 [History Last Taken Unknown] aspirin 81 mg tablet,delayed release 81 mg PO DAILY 05/24/21 [History Last Taken Unknown] atorvastatin 40 mg tablet 40 mg PO QHS #90 tab 05/24/21 [Rx Last Taken Unknown] metoprolol succinate 25 mg tablet,extended release 24 hr 25 mg PO DAILY #90 tab 05/24/21 [Rx Last Taken Unknown] Allergy/AdvReac Type Severity Reaction Status Date / Time Penicillins Allergy Hives Verified 07/19/21 17:27 oxycodone AdvReac Unknown Unknown Verified 07/19/21 17:27 Family History Father Myocardial infarction, Onset Age: 68 Brother CAD (coronary artery disease) Myocardial infarction Hx of CABG Brother CHF (congestive heart failure) Surgical History Aortocoronary bypass status (~07/07/00) H/O cardiac catheterization History of left-sided carotid endarterectomy (~07/22/20) History of right-sided carotid endarterectomy (~09/30/20) Hx of appendectomy Social History household members: spouse Smoking Status: Former smoker alcohol intake: never substance use type: does not use <GWENDOLYN ALONZO - Last Filed: 07/20/21 01:07> ROS ED Constitutional Constitutional ED: Denies chills, fever(s), subjective or sweats Eyes Eyes: Reports none; Denies blurry vision, change in vision or diplopia ENT ENT ED: Denies ear pain, rhinorrhea or sore throat Cardiovascular Cardiovascular: Reports as per HPI and chest pain at rest Respiratory/Chest Respiratory/Chest: Denies cough or sputum Gastrointestinal Gastrointestinal: Denies abdominal pain, nausea or vomiting Genitourinary Genitourinary ED: Denies dysuria or hematuria Musculoskeletal Musculoskeletal: Denies arthralgias or myalgias Integumentary Denies rash Neurologic Neurologic: Denies headache(s), paresthesias or weakness Psychiatric Psychiatric: Denies depression Endocrine Endocrinology: Denies polyuria Hematologic/Lymphatic Hematologic/Lymphatic: Denies easy bleeding or easy bruising EXAM <Dr. Doris Mcdaniels MD - Last Filed: 07/20/21 01:11> Physical Exam Const Vital Signs: 07/19/21 17:24 07/19/21 18:39 07/19/21 19:15 Temperature 97.2 F L Temperature Source Temporal Pulse Rate 69 70 68 Respiratory Rate 18 18 18 Blood Pressure 140/7 H 113/69 156/76 H Blood Pressure Mean 51 83 102 Pulse Ox 99 97 98 Oxygen Delivery Method Room Air Room Air Room Air 07/19/21 20:05 Temperature Temperature Source Pulse Rate Respiratory Rate 18 Blood Pressure Blood Pressure Mean Pulse Ox Oxygen Delivery Method <GWENDOLYN ALONZO - Last Filed: 07/20/21 01:07> Physical Exam Const Vital Signs: 07/19/21 17:24 07/19/21 18:39 07/19/21 19:15 Temperature 97.2 F L Temperature Source Temporal Pulse Rate 69 70 68 Respiratory Rate 18 18 18 Blood Pressure 140/7 H 113/69 156/76 H Blood Pressure Mean 51 83 102 Pulse Ox 99 97 98 Oxygen Delivery Method Room Air Room Air Room Air 07/19/21 20:05 Temperature Temperature Source Pulse Rate Respiratory Rate 18 Blood Pressure Blood Pressure Mean Pulse Ox Oxygen Delivery Method Positive well nourished and well developed General Appearance ED: well developed HEENT Reports moist mucous membranes normocephalic and atraumatic Eyes PERRL and EOMs intact bilaterally Neck no lymphadenopathy and supple Chest Wall inspection of chest normal and palpation of chest normal Resp normal respiratory effort and clear to auscultation bilaterally Cardio regular rate and no murmurs Peripheral Pulses: pulses 2+ throughout GI normal to inspection, nondistended, normoactive bowel sounds and soft to palpation Back/Spine no CVA tenderness Extremity normal to inspection General Extremety ED: Negative for edema General Extremity: Negative for edema Neuro oriented x3 Sensorium / Orientation: awake and alert Psych mental status grossly normal Skin no rashes or lesions noted <GWENDOLYN ALONZO - Last Filed: 07/20/21 01:07> Heart Score History: Highly Suspicious ECG: Normal Age: >/= 65 years Risk Factors: >/= 3 Risk Factors or History of CAD Troponin: </= Normal Limit Score: 6 MDM <Dr. Doris Mcdaniels MD - Last Filed: 07/20/21 01:11> MDM Lab Data Labs: Laboratory Results - last 24 hr 07/19/21 07/19/21 18:40 18:40 WBC 10.3 RBC 2.95 L Hgb 9.7 L Hct 27.9 L MCV 94.6 H MCH 32.9 H MCHC 34.8 RDW Std Deviation 50.1 H RDW Coeff of Josh 14.7 H Plt Count 207 MPV 8.9 Immature Gran % (Auto) 0.500 Neut % (Auto) 76.3 H Lymph % (Auto) 13.3 L [place] % (Auto) 8.5 Eos % (Auto) 1.2 Baso % (Auto) 0.2 Absolute Neuts (auto) 7.9 H Absolute Lymphs (auto) 1.37 Nucleated RBC % 0 Sodium 137 Potassium 4.4 Chloride 105 Carbon Dioxide 29.0 Anion Gap 3 L BUN 25 H Creatinine 1.17 Estim Creat Clear Calc 52.51 Est GFR (MDRD) Af Amer 76 Est GFR (MDRD) Non-Af 63 BUN/Creatinine Ratio 21.4 H Glucose 114 H Calcium 9.6 Troponin I High Sens 8 Lipase 240 Radiography Diagnostic Testing: Clinical Impression(s) from Imaging Studies Chest X-Ray 07/19/21 18:49 IMPRESSION: Normal x-ray examination of the chest. Electronically Signed: Wellington Jett DO at 19:23 EDT , Treatment and Re-Evaluation Narrative: Patient seen and evaluated with STERILIZATION SPECIALIST student. I independently saw the patient and performed my own history and physical as well as exam. I was personally involved in all decision-making regarding testing and treatment as well as interpretation of test results. Patient presents with epigastric and lower chest pain that started yesterday and continued today. He states pain does go through to his back and yesterday had some pain in his arm. He denies acute change in his chronic shortness of breath. He does have cardiac history with prior bypass surgery. Patient lying in bed no acute distress. Head and neck examination unremarkable. Heart is regular rate and rhythm. Lung sounds are clear. Abdomen is soft with no reproducible tenderness. No guarding or rebound. Neuro exam unremarkable. EKG, chest x-ray, lab work obtained. EKG reveals no evidence of acute ischemia. Chest x-ray reveals chronic changes only per my interpretation. Lab work unremarkable including normal lipase. Patient does have significant cardiac history although work-up at this time is unremarkable. He does not want to stay in the hospital for a stress test. I did speak with cardiology to advise the patient will be calling for close follow-up and probable outpatient stress test. Patient was given return instructions. <GWENDOLYN ALONZO - Last Filed: 07/20/21 01:07> [facility] Narrative Medical decision making narrative: Patient placed on cardiac nurse practitioner. EKG, CBC, BMP, Lipase, troponin, and liver function test obtained. Chest x-ray also obtained and patient given 324 mg of aspirin. Lab Data Attestation: I reviewed the patient's lab results. Labs: Laboratory Results - last 24 hr 07/19/21 07/19/21 18:40 18:40 WBC 10.3 RBC 2.95 L Hgb 9.7 L Hct 27.9 L MCV 94.6 H MCH 32.9 H MCHC 34.8 RDW Std Deviation 50.1 H RDW Coeff of Josh 14.7 H Plt Count 207 MPV 8.9 Immature Gran % (Auto) 0.500 Neut % (Auto) 76.3 H Lymph % (Auto) 13.3 L [place] % (Auto) 8.5 Eos % (Auto) 1.2 Baso % (Auto) 0.2 Absolute Neuts (auto) 7.9 H Absolute Lymphs (auto) 1.37 Nucleated RBC % 0 Sodium 137 Potassium 4.4 Chloride 105 Carbon Dioxide 29.0 Anion Gap 3 L BUN 25 H Creatinine 1.17 Estim Creat Clear Calc 52.51 Est GFR (MDRD) Af Amer 76 Est GFR (MDRD) Non-Af 63 BUN/Creatinine Ratio 21.4 H Glucose 114 H Calcium 9.6 Troponin I High Sens 8 Lipase 240 Radiography Chest X-Ray - ED: 1 View, No Acute Disease and No Infiltrates Diagnostic Testing: Clinical Impression(s) from Imaging Studies Chest X-Ray 07/19/21 18:49 IMPRESSION: Normal x-ray examination of the chest. Electronically Signed: Wellington Jett DO at 19:23 EDT Reading Location ID and State: [facility] / [place] Tel , Service support , EKG Initial EKG: Interpretation: Sinus Rhythm, No Acute Injury Pattern and RBBB Treatment and Re-Evaluation Narrative: Patient lab work reviewed. CBC remarkable for hemoglobin of 9.7, which is consistent with previous patient trends. BMP unremarkable. Troponin normal at 8 and lipase 240. On reevaluation, patient states pain is completely resolved and wonders when he can go home. Results discussed with patient, as well as concern for previous cardiac history with last stress test being approximately 10 years ago. Patient is in agreement to discharge home and call Dr. Solorio's office tomorrow to arrange outpatient stress test. at bedside is also in understanding of this plan of care. Return instructions reviewed with patient and understanding verbalized. Discharge Plan Triage Chief Complaint: Chest Pain ED Provider: Doris Mcdaniels Dx/Rx/DC Orders Clinical Impression: Chest pain Instructions: ED Chest Pain, Uncertain Cause Prescriptions: No Action multivitamin Tablet 1 tab PO DAILY RF: 0 nitroglycerin 0.4 mg tablet, sublingual 0.4 mg SUBLINGUAL Q5-15M PRN (Reason: chest pain) Qty: 25 RF: 3 aspirin [Adult Low Dose Aspirin] 81 mg tablet,delayed release (DR/EC) 81 mg PO DAILY RF: 0 acetaminophen 500 mg tablet 1,000 mg PO BID RF: 0 atorvastatin 40 mg tablet 40 mg PO QHS Qty: 90 RF: 3 metoprolol succinate 25 mg tablet extended release 24 hr 25 mg PO DAILY Qty: 90 RF: 3 miscellaneous medical supply Misc 1 ea miscellaneous .PRN PRN (Reason: hx of left hip fracture with repair) 360 Days Qty: 1 RF: 0 lansoprazole 30 mg capsule,delayed release(DR/EC) 30 mg PO DAILY PRN PRN (Reason: acid reflux) RF: 0 vitamin B complex Capsule 1 cap PO DAILY RF: 0 polysaccharide iron complex [Ferrex 150] 150 mg iron Capsule 150 mg PO DAILYCM 30 Days Qty: 30 RF: 0 escitalopram oxalate 10 mg Tablet 10 mg PO DAILY 30 Days Qty: 30 RF: 0 Primary Care Provider: Carlitos King Referrals: Tha Solorio MD [STAFF PHYSICIAN] - 1 Day (Call Dr. Solorio's office tomorrow to set up outpatient stress test. He is contact officer for Dr. Troy.) Carlitos King MD [Primary Care Provider] - Disposition Disposition: Home, Self Care Discharge Date/Time: 07/19/21 20:05
[2021-07-19 18:53] LABS: Absolute Lymphocyte Count 1.37 X10^3/uL (0.83-4.51); Absolute Neutrophil Count 7.9 X10^3/uL (2.0-7.7); Basophil# 0.02 X10^3/uL; Basophil% 0.2 % (0-1); Eosinophil# 0.12 X10^3/uL; Eosinophils% 1.2 % (0-5); Hematocrit 27.9 % (40-54); Hemoglobin 9.7 g/dL (13.0-16.5); Lymphocyte # 1.37 X10^3/ul (0.83-4.51); Lymphocyte % 13.3 % (19-41); Mean Corp Hgb Conc 34.8 g/dL (32-36); Mean Corpuscular Hgb 32.9 pg (27.0-32.0); Mean Corpuscular Volume 94.6 fL (80-94); Mean Platelet Vol. 8.9 fl (6.2-12.0); Monocyte# 0.88 X10^3/uL; Monocyte% 8.5 % (0-10); NRBC Flagged by Analyzer 0 % (0-5); Neutrophil # 7.88 X10^3/uL (2.7-7.7); Neutrophil % 76.3 % (47-70); Platelet Count 207 K/mm3 (150-450); RBC Distribution Width CV 14.7 % (11.6-14.6); RBC Distribution Width SD 50.1 fl (35.1-43.9); Red Blood Count 2.95 M/mm3 (4.6-6.2); White Blood Count 10.3 K/mm3 (4.4-11.0)
--- NOTE | 2021-07-19 19:05 | ED.VIS.CHEST ---
HPI History of Present Illness Chief Complaint: Chest Pain Informant: patient Onset/Context/Timing Onset: Yesterday (morning) Activity at onset: sudden Timing: Continuous Quality: Positive for Aching Location: Substernal Current Severity: 6/10 Worsened By: Nothing Relieved By: Nothing Associated Symptoms: Positive for Dyspnea (at baseline. ); Negative for Nausea, Vomiting, Diaphoresis, Cough, Fever, Lightheadedness and Palpitations Narrative Narrative: Patient presents secondary to chest pain that began yesterday morning. Patient describes pain as a steady ache that radiates from epigastric region to back. Patient states his shortness of breath is at baseline for his COPD. Patient states he is dizzy with position changes. Patient states pain radiated to his right arm last night, but that has not occurred today. Patient does have nitroglycerin tablets at home to take, but patient states he has never taken these before. Patient did take his 81 mg aspirin last night. Patient states pain is currently 6 out of 10. 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 Benign essential HTN Bilateral carotid artery stenosis Carotid bruit COPD (chronic obstructive pulmonary disease) Depression Fall GERD (gastroesophageal reflux disease) Hip fracture History of stress test Hyperlipidemia Insomnia Left carotid artery stenosis RBBB Right femoral fracture TIA (transient ischemic attack) Home Medications lansoprazole 30 mg capsule,delayed release 30 mg PO DAILY PRN PRN cap 10/11/17 [History Last Taken Unknown] multivitamin 1 tab PO DAILY 05/20/20 [History Last Taken 03/22/21] nitroglycerin 0.4 mg sublingual tablet 0.4 mg SUBLINGUAL Q5-15M PRN #25 tab 11/26/20 [Rx Last Taken Unknown] vitamin B complex 1 cap PO DAILY 03/22/21 [History Last Taken 03/22/21] escitalopram oxalate 10 mg PO DAILY 30 Days #30 tab 04/21/21 [Rx Last Taken Unknown] polysaccharide iron complex [Ferrex 150] 150 mg PO DAILYCM 30 Days #30 cap 04/21/21 [Rx Last Taken Unknown] miscellaneous medical supply 1 ea MISCELLANEOUS .PRN PRN 360 Days #1 ea 05/05/21 [Rx Last Taken Unknown] acetaminophen 500 mg tablet 1,000 mg PO BID tab 05/24/21 [History Last Taken Unknown] aspirin 81 mg tablet,delayed release 81 mg PO DAILY 05/24/21 [History Last Taken Unknown] atorvastatin 40 mg tablet 40 mg PO QHS #90 tab 05/24/21 [Rx Last Taken Unknown] metoprolol succinate 25 mg tablet,extended release 24 hr 25 mg PO DAILY #90 tab 05/24/21 [Rx Last Taken Unknown] Allergy/AdvReac Type Severity Reaction Status Date / Time Penicillins Allergy Hives Verified 07/19/21 17:27 oxycodone AdvReac Unknown Unknown Verified 07/19/21 17:27 Family History Father Myocardial infarction, Onset Age: 68 Brother CAD (coronary artery disease) Myocardial infarction Hx of CABG Brother CHF (congestive heart failure) Surgical History Aortocoronary bypass status (~07/07/00) H/O cardiac catheterization History of left-sided carotid endarterectomy (~07/22/20) History of right-sided carotid endarterectomy (~09/30/20) Hx of appendectomy Social History household members: spouse Smoking Status: Former smoker alcohol intake: never substance use type: does not use ROS ROS ED Constitutional Constitutional ED: Denies chills, fever(s), sweats or weight loss Eyes Eyes: Denies blurry vision, change in vision or diplopia ENT ENT ED: Denies ear pain, rhinorrhea or sore throat Cardiovascular Cardiovascular: Reports as per HPI and chest pain; Denies palpitations Respiratory/Chest Respiratory/Chest: Reports dyspnea on exertion Gastrointestinal Gastrointestinal: Denies abdominal pain, nausea or vomiting Genitourinary Genitourinary ED: Denies dysuria or hematuria Musculoskeletal Musculoskeletal: Denies arthralgias, myalgias or neck pain Integumentary Denies rash Neurologic Neurologic: Denies headache(s) or weakness Psychiatric Psychiatric: Denies anxiety or depression Endocrine Endocrinology: Denies polydipsia or polyuria Hematologic/Lymphatic Hematologic/Lymphatic: Denies easy bruising EXAM Physical Exam Const Vital Signs: 07/19/21 17:24 07/19/21 18:39 07/19/21 19:15 Temperature 97.2 F L Temperature Source Temporal Pulse Rate 69 70 68 Respiratory Rate 18 18 18 Blood Pressure 140/7 H 113/69 156/76 H Blood Pressure Mean 51 83 102 Pulse Ox 99 97 98 Oxygen Delivery Method Room Air Room Air Room Air 07/19/21 20:05 Temperature Temperature Source Pulse Rate Respiratory Rate 18 Blood Pressure Blood Pressure Mean Pulse Ox Oxygen Delivery Method Positive well nourished and well developed General Appearance ED: well developed HEENT normocephalic and atraumatic Eyes PERRL and EOMs intact bilaterally Neck no lymphadenopathy and supple Chest Wall inspection of chest normal and palpation of chest normal Chest: Negative for tenderness Resp normal respiratory effort and clear to auscultation bilaterally Cardio regular rate, regular rhythm and no murmurs Peripheral Pulses: pulses 2+ throughout GI normal to inspection, nondistended, normoactive bowel sounds and soft to palpation Back/Spine no CVA tenderness Extremity normal to inspection General Extremety ED: Negative for edema General Extremity: Negative for edema Neuro oriented x3 Sensorium / Orientation: awake and alert Psych mental status grossly normal Skin no rashes or lesions noted Heart Score History: Highly Suspicious ECG: Normal Age: >/= 65 years Risk Factors: >/= 3 Risk Factors or History of CAD Score: 6 MDM MDM MDM Narrative Medical decision making narrative: Patient placed on monitoring specialist. EKG, CBC, BMP, Lipase, troponin, and liver function test obtained. Chest x-ray also obtained and patient given 324 mg of aspirin. Lab Data Attestation: I reviewed the patient's lab results. Labs: Laboratory Results - last 24 hr 07/19/21 07/19/21 18:40 18:40 WBC 10.3 RBC 2.95 L Hgb 9.7 L Hct 27.9 L MCV 94.6 H MCH 32.9 H MCHC 34.8 RDW Std Deviation 50.1 H RDW Coeff of Josh 14.7 H Plt Count 207 MPV 8.9 Immature Gran % (Auto) 0.500 Neut % (Auto) 76.3 H Lymph % (Auto) 13.3 L [place] % (Auto) 8.5 Eos % (Auto) 1.2 Baso % (Auto) 0.2 Absolute Neuts (auto) 7.9 H Absolute Lymphs (auto) 1.37 Nucleated RBC % 0 Sodium 137 Potassium 4.4 Chloride 105 Carbon Dioxide 29.0 Anion Gap 3 L BUN 25 H Creatinine 1.17 Estim Creat Clear Calc 52.51 Est GFR (MDRD) Af Amer 76 Est GFR (MDRD) Non-Af 63 BUN/Creatinine Ratio 21.4 H Glucose 114 H Calcium 9.6 Troponin I High Sens 8 Lipase 240 Radiography Chest X-Ray - ED: 1 View, No Acute Disease and No Infiltrates Diagnostic Testing: Clinical Impression(s) from Imaging Studies Chest X-Ray 07/19/21 18:49 IMPRESSION: Normal x-ray examination of the chest. Electronically Signed: Wellingtontray PaulinoDO kirsty at 19:23 EDT Reading Location ID and State: [facility] / [place] Tel , Service support , EKG Initial EKG: Interpretation: Sinus Rhythm, No Acute Injury Pattern and RBBB Treatment and Re-Evaluation Narrative: Patient lab work reviewed. CBC remarkable for hemoglobin of 9.7, which is consistent with previous patient trends. BMP unremarkable. Troponin normal at 8 and lipase 240. On reevaluation, patient states pain is completely resolved and wonders when he can go home. Results discussed with patient, as well as concern for previous cardiac history with last stress test being approximately 10 years ago. Patient is in agreement to discharge home and call Dr. Solorio's office tomorrow to arrange outpatient stress test. at bedside is also in understanding of this plan of care. Return instructions reviewed with patient and understanding verbalized. Discharge Plan Triage Chief Complaint: Chest Pain ED Provider: Doris Mcdaniels Dx/Rx/DC Orders Clinical Impression: Chest pain Instructions: ED Chest Pain, Uncertain Cause Prescriptions: No Action multivitamin Tablet 1 tab PO DAILY RF: 0 nitroglycerin 0.4 mg tablet, sublingual 0.4 mg SUBLINGUAL Q5-15M PRN (Reason: chest pain) Qty: 25 RF: 3 aspirin [Adult Low Dose Aspirin] 81 mg tablet,delayed release (DR/EC) 81 mg PO DAILY RF: 0 acetaminophen 500 mg tablet 1,000 mg PO BID RF: 0 atorvastatin 40 mg tablet 40 mg PO QHS Qty: 90 RF: 3 metoprolol succinate 25 mg tablet extended release 24 hr 25 mg PO DAILY Qty: 90 RF: 3 miscellaneous medical supply Misc 1 ea miscellaneous .PRN PRN (Reason: hx of left hip fracture with repair) 360 Days Qty: 1 RF: 0 lansoprazole 30 mg capsule,delayed release(DR/EC) 30 mg PO DAILY PRN PRN (Reason: acid reflux) RF: 0 vitamin B complex Capsule 1 cap PO DAILY RF: 0 polysaccharide iron complex [Ferrex 150] 150 mg iron Capsule 150 mg PO DAILYCM 30 Days Qty: 30 RF: 0 escitalopram oxalate 10 mg Tablet 10 mg PO DAILY 30 Days Qty: 30 RF: 0 Primary Care Provider: Carlitos King Referrals: Tha Solorio MD [STAFF PHYSICIAN] - 1 Day (Call Dr. Solorio's office tomorrow to set up outpatient stress test. He is erosion control specialist for Dr. Troy.) Carlitos King MD [Primary Care Provider] - Disposition Disposition: Home, Self Care Discharge Date/Time: 07/19/21 20:05
[2021-07-19 19:14] LABS: Anion Gap 3 (5-15); BUN 25 mg/dL (7-18); BUN/Creat Ratio 21.4 RATIO (10-20); Calcium,Total 9.6 mg/dL (8.5-10.1); Chloride 105 mmol/L (98-107); Creatinine, Serum 1.17 mg/dL (0.70-1.30); EST Glomerular Filtration Rate 63 mL/min (>60); Est Glom Filt Rate - Afr Amer 76 mL/min (>60); Estimated Creatinine Clearance 52.51 ml/min; Glucose 114 mg/dL (74-106); Lipase 240 U/L (73-393); Potassium 4.4 mmol/L (3.5-5.1); Sodium Level 137 mmol/L (136-145); Troponin-I HS 8 pg/mL (3.0-78.0)
[2021-07-19 19:15] VITALS: BP 156/76; PULSE 68; RESP 18; O2SAT 98
[2021-07-19 20:05] VITALS: RESP 18
== END 2021-07-19 20:05 | disposition home or self-care (01) ==
PROVIDERS: Emergency Provider Emergency Medicine; PCP Family Medicine; Visit Provider Emergency Medicine
DX: R07.9 Chest pain, unspecified (principal); I25.10 Atherosclerotic heart disease of native coronary artery without angina pectoris; Z87.891 Personal history of nicotine dependence
CPT/HCPCS: 71045; 80048; 83690; 84484; 85025; 93005; 99285; A4216

== ENCOUNTER → 2021-08-30 | Outpatient (CLI) | payer MEDICARE, SELFPAY ==
[2021-08-30 17:51] LABS: Ferritin 15 ng/mL (26-388); Iron 32 ug/dL (65-175); Iron Binding Capacity,Total 359 ug/dL (250-450)
[2021-08-30 17:55] LABS: Absolute Lymphocyte Count 1.81 X10^3/uL (0.83-4.51); Absolute Neutrophil Count 5.6 X10^3/uL (2.0-7.7); Basophil# 0.03 X10^3/uL; Basophil% 0.4 % (0-1); Eosinophil# 0.07 X10^3/uL; Eosinophils% 0.8 % (0-5); Hematocrit 32.9 % (40-54); Hemoglobin 10.5 g/dL (13.0-16.5); Lymphocyte # 1.81 X10^3/ul (0.83-4.51); Lymphocyte % 21.5 % (19-41); Mean Corp Hgb Conc 31.9 g/dL (32-36); Mean Corpuscular Hgb 28.7 pg (27.0-32.0); Mean Corpuscular Volume 89.9 fL (80-94); Mean Platelet Vol. 9.7 fl (6.2-12.0); Monocyte# 0.86 X10^3/uL; Monocyte% 10.2 % (0-10); NRBC Flagged by Analyzer 0 % (0-5); Neutrophil % 66.7 % (47-70); Platelet Count 225 K/mm3 (150-450); RBC Distribution Width CV 13.1 % (11.6-14.6); RBC Distribution Width SD 42.7 fl (35.1-43.9); RET-HE 26.1 pg (30-35); Red Blood Count 3.66 M/mm3 (4.6-6.2); White Blood Count 8.4 K/mm3 (4.4-11.0)
[2021-08-30 18:06] LABS: AST(SGOT) 18 U/L (15-37); Alanine Aminotransfer ALT/SGPT 15 U/L (16-61); Albumin, Serum 3.3 g/dL (3.2-5.0); Alkaline Phosphatase 85 U/L (45-117); Bilirubin, Direct 0.11 mg/dL (0.00-0.30); Cholesterol 140 mg/dL (200); Globulin 2.9 g/dL (2.2-4.2); High Density Lipoprotein 37 mg/dL; Protein, Total 6.2 g/dL (6.4-8.2); Triglycerides 333 mg/dL; Very Low Density Lipoprotein 67 mg/dL (5-40)
== END | disposition home or self-care (01) ==
LOC: MFPLAB 14:29
PROVIDERS: Internal Medicine Cardiovascular Disease; PCP Family Medicine; Visit Provider Family Medicine
DX: D64.9 Anemia, unspecified (principal); E78.00 Pure hypercholesterolemia, unspecified
CPT/HCPCS: 36415; 80061; 80076; 82728; 83540; 83550; 85025; 85045

== ENCOUNTER → 2021-09-09 | Outpatient (CLI) | payer MEDICARE, SELFPAY ==
--- NOTE | 2021-09-09 09:23 | STRESSREP_ITS ---
Stress Test Report Date: 09-09-2021 Procedure: Pharmacologic stress nuclear imaging study Indications: Chest pain; CAD; CABG; hyperlipidemia; hypertension; status post left hip fracture; walks with a walker Consent: Per the patient Procedure: The patient underwent pharmacologic (Regadenoson 0.4mg ) evaluation with a peak heart rate of 83 beats per minute (60%predicted maximal heart rate) and a peak blood pressure of 140/68 mmHg. The baseline ECG demonstrated normal sinus rhythm; right bundle branch block. The peak pharmacologic ECG demonstrated no obvious ECG changes. There were no cardiac dysrhythmias pretest, during pharmacologic infusion, or recovery. There was no complaint of chest discomfort during pharmacologic infusion or recovery. The examination was discontinued secondary to completion of protocol. Impression: 1. Pharmacologic (Regadenoson) evaluation 2. Peak pharmacologic ECG with no obvious ECG changes. 3. There were no cardiac dysrhythmias pretest, during pharmacologic infusion, or recovery. 4. Nuclear images pending Myocardial perfusion imaging study: Technique: The patient was injected with 14.1 millicuries of technetium 99m Cardiolite and subsequently rest SPECT Cardiolite nuclear imaging was obtained in the horizontal long, vertical long, and short axis views. The patient underwent pharmacologic (Regadenoson) evaluation with a peak heart rate of 83 beats per minute (60% percent predicted maximal heart rate) and a peak blood pressure of 140/68 mmHg. The patient was injected with 44.4 millicuries of technetium 99m Cardiolite and subsequently stress SPECT Cardiolite nuclear imaging was obtained in the horizontal long, vertical long, and short axis views. A gated Cardiolite study at peak stress was obtained. Interpretation: Rest and stress SPECT Cardiolite nuclear imaging status post realignment, normalization, and attenuation correction demonstrate relative uniform tracer uptake and myocardial perfusion appearing within normal limits. There is end systolic thickening and brightening. The gated Cardiolite study demonstrates myocardial thickening and inward wall motion. The reported LVEF is 69%. Impression: 1. Rest and stress SPECT Cardiolite nuclear imaging demonstrate relative uniform tracer uptake and myocardial perfusion appearing within normal limits. 2. The gated Cardiolite study reports an LVEF of 69%. This note was generated with [employer] software. It may contain incorrect words, spelling, and punctuation that were not noted in checking the note before signing.
== END | disposition home or self-care (01) ==
LOC: CVS 06:53
PROVIDERS: PCP Family Medicine; Referring Provider Physician Assistant Medical; Visit Provider Physician Assistant Medical
DX: R07.9 Chest pain, unspecified (principal); I25.10 Atherosclerotic heart disease of native coronary artery without angina pectoris
CPT/HCPCS: 78452; 93017; A9500; A4216; J2785

== ENCOUNTER → 2021-10-11 | Outpatient (CLI) | payer MEDICARE, SELFPAY ==
--- NOTE | 2021-10-11 14:05 | RAD_ITS ---
EXAM: XR CHEST, 2 VIEWS CLINICAL INDICATION: COPD TECHNIQUE: Frontal and lateral views of the chest. This report was created using [employer] report generation technology. COMPARISON: 07/19/2021 FINDINGS: LUNGS AND PLEURAL SPACES: See below. HEART: Unremarkable. Cardiac silhouette not enlarged. MEDIASTINUM: Central airways and mediastinal contour are unremarkable. BONES/JOINTS: There is a left-sided effusion with increasing left basilar airspace disease. SOFT TISSUES: Unremarkable. RAD/Chest PA and Lateral IMPRESSION: Left-sided effusion with increasing left basilar airspace disease which may represent developing pneumonia. Electronically Signed: Oskar Manriquez MD at 17:35 EDT ,
[2021-10-11 15:22] LABS: Absolute Lymphocyte Count 1.55 X10^3/uL (0.83-4.51); Absolute Neutrophil Count 11.2 X10^3/uL (2.0-7.7); Basophil# 0.04 X10^3/uL; Basophil% 0.3 % (0-1); Eosinophil# 0.04 X10^3/uL; Eosinophils% 0.3 % (0-5); Hemoglobin 13.1 g/dL (13.0-16.5); Lymphocyte # 1.55 X10^3/ul (0.83-4.51); Lymphocyte % 10.7 % (19-41); Mean Corp Hgb Conc 32.8 g/dL (32-36); Mean Corpuscular Hgb 29.2 pg (27.0-32.0); Mean Corpuscular Volume 89.3 fL (80-94); Mean Platelet Vol. 8.8 fl (6.2-12.0); Monocyte# 1.52 X10^3/uL; Monocyte% 10.5 % (0-10); NRBC Flagged by Analyzer 0 % (0-5); Neutrophil # 11.23 X10^3/uL (2.7-7.7); Neutrophil % 77.7 % (47-70); POSITIVE DIFFERENTIAL YES; Platelet Count 265 K/mm3 (150-450); RBC Distribution Width CV 17.4 % (11.6-14.6); Red Blood Count 4.48 M/mm3 (4.6-6.2); White Blood Count 14.5 K/mm3 (4.4-11.0)
[2021-10-11 15:32] LABS: Differential Indicated SCAN CRITERIA MET
[2021-10-11 16:04] LABS: Differential Comment SCANNED
== END | disposition home or self-care (01) ==
LOC: MTLAB 14:03
PROVIDERS: PCP Family Medicine; Referring Provider Family Medicine; Visit Provider Family Medicine
DX: J44.9 Chronic obstructive pulmonary disease, unspecified (principal)
CPT/HCPCS: 36415; 71046; 85025

== ENCOUNTER → 2022-02-22 | Outpatient (CLI) | payer MEDICARE, SELFPAY ==
[2022-02-22 12:23] LABS: AST(SGOT) 19 U/L (15-37); Alanine Aminotransfer ALT/SGPT 22 U/L (16-61); Albumin, Serum 3.4 g/dL (3.2-5.0); Alkaline Phosphatase 93 U/L (45-117); Cholesterol 152 mg/dL (200); Globulin 3.7 g/dL (2.2-4.2); High Density Lipoprotein 48 mg/dL; Protein, Total 7.1 g/dL (6.4-8.2); Triglycerides 267 mg/dL; Very Low Density Lipoprotein 53 mg/dL (5-40)
== END | disposition home or self-care (01) ==
LOC: LAB 10:37
PROVIDERS: PCP Family Medicine; Referring Provider Physician Assistant Medical; Visit Provider Physician Assistant Medical
DX: I70.219 Atherosclerosis of native arteries of extremities with intermittent claudication, unspecified extremity (principal); E78.5 Hyperlipidemia, unspecified; Z95.1 Presence of aortocoronary bypass graft
CPT/HCPCS: 36415; 80061; 80076

== ENCOUNTER 2023-01-03 08:13 | Emergency (ER) | payer MEDICARE, SELFPAY ==
[2023-01-03 08:14] VITALS: BP 199/95; PULSE 69; RESP 18; TEMP 36.2; O2SAT 99
--- NOTE | 2023-01-03 08:34 | RAD_ITS ---
STUDY: X-RAY CHEST REASON FOR EXAM: Male, 87 years old. Chest pain TECHNIQUE: Single AP portable view of the chest. COMPARISON: Comparison is made with prior study dated October 11, 2021. FINDINGS: EKG electrodes are seen. Stable pleural parenchymal changes at the left lung base suggestive of a chronic small left pleural effusion with left basilar scarring. Sternal cerclage wires and vascular clips are present from a prior sternotomy and coronary artery bypass graft procedure (CABG). Normal mediastinum and gareth. Normal visualized pulmonary arteries. There is atherosclerotic calcification of the aortic arch with tortuosity. There are diffuse degenerative changes of the visualized thoracic spine. Normal visualized ribs, clavicles, and shoulders. There is no demonstrated abnormality of the visualized soft tissue structures of the upper abdomen. RAD/Chest 1 View (Portable) IMPRESSION: Stable pleural parenchymal changes at the left lung base. The remainder of the examination is unchanged. Electronically Signed: Jeronimo Zelaya MD at 9:15 EDT ,
[2023-01-03 08:44] LABS: Absolute Lymphocyte Count 1.24 X10^3/uL (0.83-4.51); Basophil# 0.04 X10^3/uL; Basophil% 0.4 % (0-1); Eosinophil# 0.07 X10^3/uL; Eosinophils% 0.7 % (0-5); Hematocrit 44.1 % (40-54); Hemoglobin 15.2 g/dL (13.0-16.5); Lymphocyte # 1.24 X10^3/ul (0.83-4.51); Lymphocyte % 13.2 % (19-41); Mean Corp Hgb Conc 34.5 g/dL (32-36); Mean Corpuscular Hgb 32.7 pg (27.0-32.0); Mean Corpuscular Volume 94.8 fL (80-94); Mean Platelet Vol. 8.8 fl (6.2-12.0); Monocyte# 0.96 X10^3/uL; Monocyte% 10.3 % (0-10); NRBC Flagged by Analyzer 0 % (0-5); Neutrophil % 74.9 % (47-70); Platelet Count 194 K/mm3 (150-450); RBC Distribution Width CV 13.5 % (11.6-14.6); RBC Distribution Width SD 46.6 fl (35.1-43.9); Red Blood Count 4.65 M/mm3 (4.6-6.2); White Blood Count 9.4 K/mm3 (4.4-11.0)
--- NOTE | 2023-01-03 08:45 | EKG12_ITS ---
Test Reason : CHEST PAIN Blood Pressure : / mmHG Vent. Rate : 064 BPM Atrial Rate : 064 BPM P-R Int : 172 ms QRS Dur : 160 ms QT Int : 414 ms P-R-T Axes : 061 -15 041 degrees QTc Int : 427 ms Normal sinus rhythm with sinus arrhythmia Right bundle branch block Abnormal ECG Confirmed by YRIS MACHUCA, KEV ([id number]), telegraph editor MO BETANCOURT ([id number]) on 01/06/2023 11:20:25 AM Referred By: MARIAH Confirmed By:KEV ARNDT MD
[2023-01-03 09:01] LABS: Anion Gap 3 (5-15); BUN 15 mg/dL (7-18); BUN/Creat Ratio 11.9 RATIO (10-20); Calcium,Total 9.2 mg/dL (8.5-10.1); Chloride 103 mmol/L (98-107); Creatinine, Serum 1.26 mg/dL (0.70-1.30); EST Glomerular Filtration Rate 58 mL/min (>60); Est Glom Filt Rate - Afr Amer 70 mL/min (>60); Glucose 123 mg/dL (74-106); Potassium 4.6 mmol/L (3.5-5.1); Sodium Level 134 mmol/L (136-145); Troponin-I HS (w/2H Reflex) 7 pg/mL (3.0-78.0)
--- NOTE | 2023-01-03 09:51 | EDS_ITS ---
HPI History of Present Illness Chief Complaint: Chest Pain Detail of Chief Complaint: Epigastric pain with shortness of breath Onset/Context/Timing Onset: Today (At approximately 07 100) Activity at onset: sudden Timing: Continuous Quality: Positive for Indigestion Location: - (Subxiphoid) Current Severity: Mild Maximum Severity: Moderate Worsened By: Nothing Relieved By: Nothing Associated Symptoms: Positive for Nausea and Dyspnea; Negative for Vomiting, D iaphoresis, Cough, Fever, Lightheadedness, Acid Reflux or Palpitations Narrative Narrative: Patient is a 87-year-old male with history of coronary disease status post bypass surgery 20 years ago, TIA, hyperlipidemia, hypertension, COPD, right bundle branch block who presents because of dyspnea with his subxiphoid discomfort. He thought it was heartburn that she had for the past several weeks. Today he was concerned because he felt sick to his stomach with dyspnea. When he had his cardiac event 20+ years ago he only had dyspnea with exertion. He had multivessel bypass surgery. 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 He states he is compliant with his medication. He is not exert himself in the last week unable to determine if he has had symptoms prior to today. He denies history of peptic ulcer disease, hiatal hernia or reflux. He denies black or maroon-colored stool. He denies intolerance to greasy or fried foods. He denies history of VTE. He states his legs are chronically swollen. He denies orthopnea. Review of prior records indicates patient does have GERD Prior Similar Symptoms: No CVD Risk Factors: Positive for Hypertension, Hypercholesterolemia and Smoking (Former) PE Risk Factors: Negative for Recent Travel/Surgery, Recent Immobilization, Prior DVT or PE, Cancer or OCP + Smoking + >/=35 TAD Risk Factors: Positive for Hypertension; Negative for Marfan's Syndrome or Family History [facility] Medical History Aortic root dilatation Atherosclerosis of [place] arteries of extremity with intermittent claudication Atherosclerotic heart disease of [place] coronary artery without angina pectoris Benign essential HTN Bilateral carotid artery stenosis Carotid bruit COPD (chronic obstructive pulmonary disease) Depression Fall GERD (gastroesophageal reflux disease) Hip fracture History of stress test Hyperlipidemia Insomnia Left carotid artery stenosis RBBB Right femoral fracture TIA (transient ischemic attack) Home Medications multivitamin 1 tab PO DAILY Supplement 05/20/20 [History Last Taken 11/22/21] nitroglycerin 0.4 mg sublingual tablet 0.4 mg sublingual Q5-15M PRN chest pain #25 tabs 11/26/20 [Rx Last Taken Unknown] vitamin B complex 1 cap PO DAILY SUPPLEMENT 03/22/21 [History Last Taken 03/22/21] escitalopram oxalate 10 mg tablet 10 mg PO DAILY 30 days #30 tabs 04/21/21 [Rx Last Taken Unknown] aspirin 81 mg tablet,delayed release (Adult Low Dose Aspirin) 81 mg PO DAILY 05/24/21 [History Last Taken Unknown] atorvastatin 40 mg tablet 40 mg PO QHS cholesterol lowering #90 tabs 07/19/22 [Rx Last Taken Unknown] metoprolol succinate 25 mg tablet,extended release 24 hr 25 mg PO DAILY #90 tabs 07/19/22 [Rx Last Taken Unknown] Allergy/AdvReac Type Severity Reaction Status Date / Time Penicillins Allergy Hives Verified 01/03/23 08:14 oxycodone AdvReac Unknown Unknown Verified 01/03/23 08:14 Family History Father Myocardial infarction, Onset Age: 68 Brother CAD (coronary artery disease) Myocardial infarction Hx of CABG Brother CHF (congestive heart failure) Surgical History Aortocoronary bypass status (~07/07/00) H/O cardiac catheterization History of left-sided carotid endarterectomy (~07/22/20) History of right-sided carotid endarterectomy (~09/30/20) Hx of appendectomy Social History household members: spouse Smoking Status: Former smoker alcohol intake: never substance use type: does not use ROS ROS ED Constitutional Constitutional ED: Denies chills, fever(s), subjective or sweats Eyes Eyes: Reports none ENT ENT ED: Denies ear pain, rhinorrhea or sore throat Cardiovascular Cardiovascular: Reports as per HPI; Denies orthopnea or paroxysmal nocturnal dyspnea Respiratory/Chest Respiratory/Chest: Reports dyspnea; Denies cough, dyspnea on exertion, orthopnea or paroxysmal nocturnal dyspnea Gastrointestinal Gastrointestinal: Reports abdominal pain and nausea; Denies melena Musculoskeletal Musculoskeletal: Denies arthralgias, back pain, myalgias or neck pain Integumentary Denies rash Neurologic Neurologic: Denies headache(s) or paresthesias Endocrine Endocrinology: Denies cold intolerance or heat intolerance Hematologic/Lymphatic Hematologic/Lymphatic: Denies easy bleeding or easy bruising EXAM Physical Exam Const Vital Signs: 01/03/23 08:14 01/03/23 08:26 01/03/23 11:00 Temperature 97.1 F L Temperature Source Temporal Pulse Rate 69 Respiratory Rate 18 Respiratory Effort Normal Non-Labored Blood Pressure 199/95 H Blood Pressure Mean 129 Pulse Ox 99 96 Oxygen Delivery Method Room Air Room Air Positive well nourished General Appearance ED: NAD HEENT Reports TM's clear and moist mucous membranes normocephalic and atraumatic Tympanic Membrane ED: Yes TM's clear Eyes PERRL and EOMs intact bilaterally General Eye ED: Negative for pale conjunctiva or scleral icterus Neck no lymphadenopathy, supple and no JVD Neck Narrative: There are no carotid bruits noted. Chest Wall inspection of chest normal and palpation of chest normal Resp normal respiratory effort and clear to auscultation bilaterally Cardio regular rate, regular rhythm, S1 normal heart sound, S2 normal heart sound and no murmurs GI normal to inspection, nondistended, normoactive bowel sounds, soft to palpation, non-tender, non-distended and no masses; Negative for hepatosplenomegaly Back/Spine no CVA tenderness and no thoracic nor lumbar tenderness Extremity normal to inspection General Extremety ED: Yes edema; Negative for pulses abnormal or tenderness General Extremity: edema; Negative for pulses abnormal Neuro oriented x3, CN's II-XII intact bilaterally and no sensory deficits noted Sensorium / Orientation: awake and alert Psych mental status grossly normal Skin no rashes or lesions noted and no wounds MDM MDM MDM Narrative Medical decision making narrative: Differential diagnosis would include GERD, coronary disease i.e. anginal equivalent, peptic ulcer disease and biliary disease. Chest pain work-up was initiated. Patient took aspirin last evening according to . This is the reason he did not receive aspirin in the emergency department. Patient and were informed of EKG results, chest x-ray results and blood work he was informed that a 2-hour troponin was ordered. Lab Data Attestation: I reviewed the patient's lab results. Lab results narrative: CBC is unremarkable. Basic metabolic panel is unremarkable. First troponin 7. Labs: Laboratory Results - last 24 hr 01/03/23 01/03/23 08:24 10:59 WBC 9.4 RBC 4.65 Hgb 15.2 Hct 44.1 MCV 94.8 H MCH 32.7 H MCHC 34.5 RDW Std Deviation 46.6 H RDW Coeff of Josh 13.5 Plt Count 194 MPV 8.8 Immature Gran % (Auto) 0.500 Neut % (Auto) 74.9 H Lymph % (Auto) 13.2 L Starke % (Auto) 10.3 H Eos % (Auto) 0.7 Baso % (Auto) 0.4 Absolute Neuts (auto) 7.0 Absolute Lymphs (auto) 1.24 Nucleated RBC % 0 Sodium 134 L Potassium 4.6 Chloride 103 Carbon Dioxide 28.0 Anion Gap 3 L BUN 15 Creatinine 1.26 Est GFR (MDRD) Af Amer 70 Est GFR (MDRD) Non-Af 58 L BUN/Creatinine Ratio 11.9 Glucose 123 H Calcium 9.2 Troponin I High Sens 7 8 Radiography Chest X-Ray - ED: 1 View and Read by ED Physician (Single view portable chest x- ray reveals changes at the left base which are unchanged from prior. Cardiac size is unremarkable. Perihilar region is normal. Osseous trucks unremarkable. Right lung field is normal. There is no evidence of effusion. This is implanted reviewed interpreted by me.) Diagnostic Testing: Clinical Impression(s) from Imaging Studies Chest X-Ray 01/03/23 08:34 IMPRESSION: Stable pleural parenchymal changes at the left lung base. The remainder of the examination is unchanged. Electronically Signed: Jeronimo Zelaya MD at 9:15 EDT , EKG Initial EKG: Attestation: I personally reviewed and interpreted this EKG as follows: Interpretation: Sinus Rhythm (Rate is 64 with a right bundle branch block. 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 DE interval is 172 ms. Cures duration 160 ms. QT duration is 414 ms. Wishram is normal) Treatment and Re-Evaluation :: Patient was informed that both of his troponins were negative and the delta was 1. With an unchanged EKG atypical symptoms normal 2-hour troponin we will have him follow-up with the [facility]. He will need to be reassigned to a new physician since Dr. Garth Troy has left the group Discharge Plan Triage Chief Complaint: Chest Pain ED Provider: Toy Crandall Dx/Rx/DC Orders Clinical Impression: Epigastric abdominal pain of unknown etiology, Bilateral carotid artery stenosis, Benign essential HTN, Gastroesophageal reflux disease, Acute dyspnea, Status post coronary artery bypass grafting Instructions: ED Chest Pain, Noncardiac, ED Chest Pain, Uncertain Cause Prescriptions: No Action multivitamin Tablet 1 tab PO DAILY nitroglycerin 0.4 mg tablet, sublingual 0.4 mg SUBLINGUAL Q5-15M PRN (Reason: chest pain) Qty: 25 3RF Rx Instructions: until response; do not exceed 3 doses per event aspirin [Adult Low Dose Aspirin] 81 mg tablet,delayed release (DR/EC) 81 mg PO DAILY vitamin B complex Capsule 1 cap PO DAILY escitalopram oxalate 10 mg Tablet 10 mg PO DAILY 30 Days Qty: 30 0RF atorvastatin 40 mg tablet 40 mg PO QHS Qty: 90 3RF metoprolol succinate 25 mg tablet extended release 24 hr 25 mg PO DAILY Qty: 90 3RF Primary Care Provider: Carlitos King Referrals: Carlitos King MD [Primary Care Provider] - 3-5 Days Disposition Disposition: Home, Self Care
[2023-01-03 10:39] LABS: Reflex Troponin-HS? (from REC) Y
[2023-01-03 11:00] VITALS: O2SAT 96
[2023-01-03 11:25] LABS: Troponin-I HS 8 pg/mL (3.0-78.0)
[2023-01-03 12:10] VITALS: BP 127/69; PULSE 72; RESP 15; O2SAT 98
== END 2023-01-03 12:11 | disposition home or self-care (01) ==
PROVIDERS: Emergency Provider Emergency Medicine; PCP Family Medicine; Visit Provider Emergency Medicine
DX: R10.13 Epigastric pain (principal); I65.23 Occlusion and stenosis of bilateral carotid arteries; I25.10 Atherosclerotic heart disease of native coronary artery without angina pectoris; K21.9 Gastro-esophageal reflux disease without esophagitis; I10 Essential (primary) hypertension; R06.00 Dyspnea, unspecified; Z87.891 Personal history of nicotine dependence; Z95.1 Presence of aortocoronary bypass graft
CPT/HCPCS: 71045; 80048; 84484; 85025; 93005; 99284; A4216

== ENCOUNTER → 2023-01-27 | Outpatient (CLI) | payer MEDICARE, SELFPAY ==
--- NOTE | 2023-01-27 16:32 | RAD_ITS ---
STUDY: X-RAY CHEST REASON FOR EXAM: Male, 87 years old. COPD TECHNIQUE: Frontal and lateral views of the chest. COMPARISON: 01/03/2023. FINDINGS: There is hyperinflation of the lungs consistent with chronic obstructive lung disease (COPD). Pleural thickening and blunting of the left costophrenic angle with mild hazy increased density of the lower left hemithorax. These findings are stable and most consistent with chronic pleural parenchymal scarring. Normal size heart. Previous CABG Normal mediastinum and gareth. Normal visualized pulmonary arteries. There is atherosclerotic calcification of the aortic arch with tortuosity. There are diffuse degenerative changes of the visualized thoracic spine. Normal visualized ribs, clavicles, and shoulders. There is no demonstrated abnormality of the visualized soft tissue structures of the upper abdomen. RAD/Chest PA and Lateral IMPRESSION: COPD. Stable chronic pleural-parenchymal scarring in the lower left chest. No gross acute chest disease. Electronically Signed: Ru Freeman MD at 19:22 EDT ,
[2023-01-27 17:34] LABS: Absolute Lymphocyte Count 2.38 X10^3/uL (0.83-4.51); Absolute Neutrophil Count 8.2 X10^3/uL (2.0-7.7); Basophil# 0.06 X10^3/uL; Basophil% 0.5 % (0-1); Eosinophil# 0.14 X10^3/uL; Eosinophils% 1.2 % (0-5); Hematocrit 44.9 % (40-54); Hemoglobin 14.8 g/dL (13.0-16.5); Lymphocyte # 2.38 X10^3/ul (0.83-4.51); Mean Corpuscular Hgb 31.9 pg (27.0-32.0); Mean Corpuscular Volume 96.8 fL (80-94); Monocyte# 1.08 X10^3/uL; Monocyte% 9.1 % (0-10); NRBC Flagged by Analyzer 0 % (0-5); Neutrophil # 8.19 X10^3/uL (2.7-7.7); Neutrophil % 68.7 % (47-70); Platelet Count 294 K/mm3 (150-450); RBC Distribution Width CV 13.6 % (11.6-14.6); RBC Distribution Width SD 47.8 fl (35.1-43.9); Red Blood Count 4.64 M/mm3 (4.6-6.2); White Blood Count 11.9 K/mm3 (4.4-11.0)
[2023-01-27 17:56] LABS: CRP 5.04 mg/L (0.0-3.0)
== END | disposition home or self-care (01) ==
LOC: MTLAB 16:31
PROVIDERS: PCP Family Medicine; Referring Provider Family Medicine; Visit Provider Family Medicine
DX: J44.1 Chronic obstructive pulmonary disease with (acute) exacerbation (principal)
CPT/HCPCS: 36415; 71046; 85025; 86140

== ENCOUNTER → 2023-10-02 | Outpatient (CLI) | payer MEDICARE, SELFPAY ==
--- NOTE | 2023-10-02 14:02 | ART_ITS ---
Reason For Study: Diminished pulses, Leg Swelling Procedure A bilateral lower extremity continuous wave Doppler with analog waveform analysis and ankle brachial indexes. Left Segmental Pressures Left brachial= 169mmHg. Left posterior tibial artery = 166mmHg. Left dorsalis pedis artery = 165mmHg. Left digit = 113 mmHg. Right Segmental Pressures Right brachial= 160mmHg. Right posterior tibial artery = 184mmHg. Right dorsalis pedis artery = 173mmHg. Right digit = 127 mmHg. Indices The right ankle brachial index by the posterior tibial artery is 1.09. The right ankle brachial index by the dorsalis pedis is 1.02. The right digital-brachial index is 0.75. The left ankle brachial index by the posterior tibial artery is 0.98. The left ankle brachial index by the dorsalis pedis is 0.98. The left digital-brachial index is 0.67. VL/Ankle Brachial Index Interpretation Summary Right VISHAL 1.09, normal. TBI and Doppler/PVR waveforms of the right ankle normal at rest. Left VISHAL 0.98, mild aterial insufficiency. Doppler/PVR waveforms of the left an kle normal at rest. Ordering Physician: Carlitos King Referring Physician: CARLITOS KING MD Performed By: Saba Bautista RDCS/RVT
== END | disposition home or self-care (01) ==
PROVIDERS: PCP Family Medicine; Referring Provider Family Medicine; Visit Provider Family Medicine
DX: I73.9 Peripheral vascular disease, unspecified (principal)
CPT/HCPCS: 93922

== ENCOUNTER 2024-10-16 09:46 | Outpatient (RCR) | payer MEDICARE, SELFPAY | END 2024-10-16 19:00 | disposition home or self-care (01) | LOC: PT 09:46 | PROVIDERS: PCP Family Medicine; Referring Provider Family Medicine; Visit Provider Family Medicine | DX: M54.50 Low back pain, unspecified (principal); R26.89 Other abnormalities of gait and mobility ==

== ENCOUNTER → 2025-01-20 | Outpatient (CLI) | payer MEDICARE, SELFPAY ==
--- NOTE | 2025-01-20 13:55 | CDU_ITS ---
Reason For Study Reason For Study: Bilateral Endarts 2020 Rt. Velocities/BP Lt. Velocities/BP Prox CCA 50/11 cm/sec. Prox CCA 78/11 cm/sec. Mid CCA 43/8 cm/sec. Mid CCA 67/16 cm/sec. Dist CCA 79/14 cm/sec. Dist CCA 67/12 cm/sec. Prox ICA 68/12 cm/sec. Prox ICA 71/16 cm/sec. Mid ICA 81/16 cm/sec. Mid ICA 87/16 cm/sec. Dist ICA 69/17 cm/sec. Dist ICA 64/15 cm/sec. Rt. ICA/CCA = 1.9. Lt. ICA/CCA = 1.30. Prox ECA 574/108 cm/sec. Prox ECA 72/9 cm/sec. Rt. Vert. 55/12 cm/sec. Lt. Vert. 54/12 cm/sec. Right Extracranial There is heterogeneous, irregular atherosclerotic plaque noted in the right common carotid artery. There is heterogeneous, irregular atherosclerotic plaque noted in the right internal carotid artery. There is heterogeneous, irregular atherosclerotic plaque noted in the right external carotid artery. Antegrade flow is noted in the right vertebral artery. Left Extracranial There is heterogeneous, irregular atherosclerotic plaque noted in the left common carotid artery. There is intimal thickening but no significant atherosclerotic plaque noted in the left internal carotid artery. There is heterogeneous, irregular atherosclerotic plaque noted in the left external carotid artery. Antegrade flow is noted in the left vertebral artery. Procedure Carotid Duplex [id number]. This is a Carotid Duplex examination using B-mode, color flow and specral Doppler. Exam performed in department. VL/Carotid Duplex Ultrasound Interpretation Summary Mild (<50%) stenosis right extracranial internal carotid. Normal left extracranial internal carotid. Patent and antegrade vertebrals bilaterally. Ordering Physician: Mark Paris Referring Physician: Carlitos King Performed By: Saba Bautista RVT, RDCS and Student
== END | disposition home or self-care (01) ==
LOC: CVS 13:51
PROVIDERS: PCP Family Medicine; Referring Provider Internal Medicine Cardiovascular Disease; Visit Provider Internal Medicine Cardiovascular Disease
DX: I65.23 Occlusion and stenosis of bilateral carotid arteries (principal)
CPT/HCPCS: 93880

== ENCOUNTER 2025-03-29 23:37 | Inpatient (IN) | payer MEDICARE, SELFPAY ==
[2025-03-29 23:37] VITALS: BP 115/81; PULSE 93; RESP 16; TEMP 36.8; O2SAT 95; BMI 29.1
--- NOTE | 2025-03-29 23:44 | EKG12_ITS ---
Test Reason : DYSRHYTHMIA Blood Pressure : */* mmHG Vent. Rate : 84 BPM Atrial Rate : 84 BPM P-R Int : 156 ms QRS Dur : 158 ms QT Int : 418 ms P-R-T Axes : 51 -42 36 degrees QTcB Int : 493 ms Normal sinus rhythm Possible Left atrial enlargement Left axis deviation Right bundle branch block Abnormal ECG Confirmed by MARCOS SANTAMARIA ([id number]), news video editor [place] BETANCOURT ([id number]) on 03/31/2025 6:40:48 AM Referred By: Confirmed By: MARCOS SANTAMARIA
--- NOTE | 2025-03-29 23:46 | EX.ED.DYSGE1 ---
HPI History of Present Illness Chief Complaint: Nausea/Vomiting Detail of Chief Complaint: Vomiting Informant: patient and spouse/S.O. Narrative Narrative: Patient presents to the emergency department complaint of not feeling well for 2 to 3 days. He has had decreased p.o. intake. Today has vomited about 3 times but concerned because she thinks it looks like blood. Patient denies chest pain or shortness of breath. Denies abdominal pain. Denies fever. He denies sick contacts. Denies diarrhea. Denies black stool. Currently not anticoagulated. [facility] Medical History (Updated 03/30/25 @ 01:[address] Kenna Carlson, DO) History of stress test Aortic root dilatation Bilateral carotid artery stenosis TIA (transient ischemic attack) Left carotid artery stenosis COPD (chronic obstructive pulmonary disease) Atherosclerosis of [place] arteries of extremity with intermittent claudication RBBB Carotid bruit Depression GERD (gastroesophageal reflux disease) Atherosclerotic heart disease of [place] coronary artery without angina pectoris Insomnia Hyperlipidemia Right femoral fracture Fall Hip fracture Home Medications ?Medication ?Instructions ?Recorded ?Last Taken ?Type multivitamin 1 tab PO DAILY Supplement 05/20/20 03/22/21 History nitroglycerin 0.4 mg sublingual 0.4 mg sublingual Q5-15M PRN chest 11/26/20 Unknown Rx tablet pain #25 tabs vitamin B complex 1 cap PO DAILY SUPPLEMENT 03/22/21 03/22/21 History aspirin 81 mg tablet,delayed 81 mg PO DAILY 05/24/21 Unknown History release (Adult Low Dose Aspirin) metoprolol succinate 25 mg 25 mg PO DAILY #90 tabs 07/03/24 Unknown Rx tablet,extended release 24 hr atorvastatin 40 mg tablet 40 mg PO QHS cholesterol lowering 07/11/24 Unknown Rx #90 tabs chlorpheniramine maleate 4 mg 4 mg PO QHS 01/03/25 Unknown History tablet (Allergy (chlorpheniramine)) escitalopram oxalate 20 mg tablet 20 mg PO DAILY 03/29/25 Unknown History levocetirizine 5 mg tablet 5 mg PO DAILY allergies 03/29/25 Unknown History Allergy/AdvReac Type Severity Reaction Status Date / Time Penicillins Allergy Hives Verified 03/29/25 23:38 oxycodone AdvReac Unknown Unknown Verified 03/29/25 23:38 Family History Father Myocardial infarction, Onset Age: 68 Brother CAD (coronary artery disease) Myocardial infarction Hx of CABG Brother CHF (congestive heart failure) Surgical History H/O cardiac catheterization History of right-sided carotid endarterectomy (~09/30/20) History of left-sided carotid endarterectomy (~07/22/20) Hx of appendectomy Aortocoronary bypass status (~07/07/00) Social History household members: spouse Smoking Status: Former smoker alcohol intake: never substance use type: does not use caffeine: Yes ROS ROS ED Review of Systems ROS Unobtainable: other Constitutional Constitutional ED: Reports lethargy; Denies chills, fever(s), sweats or weight loss Eyes Eyes: Denies blurry vision, change in vision or diplopia ENT ENT ED: Denies rhinorrhea or sore throat Cardiovascular Cardiovascular: Denies chest pain, orthopnea or racing heartbeat Respiratory/Chest Respiratory/Chest: Denies cough, dyspnea, dyspnea on exertion, orthopnea or sputum Gastrointestinal Gastrointestinal: Reports nausea and vomiting; Denies abdominal pain or diarrhea Genitourinary Genitourinary ED: Denies dysuria, hematuria or urinary frequency Musculoskeletal Musculoskeletal: Denies arthralgias, back pain, myalgias or neck pain Integumentary Denies abscess, Abrasions or rash Neurologic Neurologic: Denies headache(s) or weakness Psychiatric Psychiatric: Denies anxiety, depression or suicidal thoughts Endocrine Endocrinology: Denies polydipsia, polyphagia or polyuria Hematologic/Lymphatic Hematologic/Lymphatic: Denies easy bleeding, easy bruising or lymphadenopathy Allergic/Immunologic Allergic/Immunologic ED: Denies mouth swelling, tongue swelling or urticaria EXAM Physical Exam Const Vital Signs: 03/29/25 23:37 03/30/25 01:08 Temperature 98.2 F Temperature Source Oral Pulse Rate 93 86 Respiratory Rate 16 16 Blood Pressure 115/81 H 163/64 H Blood Pressure Mean 92 97 Pulse Ox 95 93 Oxygen Delivery Method Room Air Positive well nourished and well developed General Appearance ED: well developed and NAD HEENT Reports TM's clear and moist mucous membranes HEENT Narrative: Tongue with what appears to be coffee ground type emesis coloring. normocephalic and atraumatic; Negative for trauma or tenderness Tympanic Membrane ED: Yes TM's clear Eyes PERRL and EOMs intact bilaterally General Eye ED: Negative for pale conjunctiva or scleral icterus Neck no lymphadenopathy, supple and no JVD General: Negative for tenderness Chest Wall inspection of chest normal and palpation of chest normal Chest: Negative for tenderness Resp normal respiratory effort and clear to auscultation bilaterally Effort and Inspection: Negative for respiratory distress or pain with movement Auscultation: Negative for rhonchi, wheezes or diminished lung sounds Cardio regular rate, regular rhythm, S1 normal heart sound, S2 normal heart sound and no murmurs Peripheral Pulses: pulses 2+ throughout GI normal to inspection, nondistended, normoactive bowel sounds, soft to palpation, non-tender, non-distended and no masses Back/Spine no CVA tenderness and no thoracic nor lumbar tenderness Extremity normal to inspection General Extremety ED: Negative for edema General Extremity: Negative for edema Neuro oriented x3, CN's II-XII intact bilaterally, no sensory deficits noted and gait normal Sensorium / Orientation: awake, alert, oriented to person, oriented to place and oriented to time Motor Exam: strength 5/5 throughout and strength abnormal Psych mental status grossly normal Skin no rashes or lesions noted and no wounds MDM MDM MDM Narrative Medical decision making narrative: Patient presents with vomiting and concern for upper GI bleed. Gastroccult was obtained of coating on tongue that appeared to be black and this was negative for blood however am concerned this may be a false negative. IV line established. He was medicated with Zofran 4 mg IV and was given a liter [place] fluid bolus. CBC with differential obtained showed a white count of 20.7 with hemoglobin of 15.8 and platelet count of 344. Chemistries unremarkable. BUN was 21 and creat 1.34. Lactate was elevated at 3.2. LFTs were normal. Lipase normal at 29. CT scan of the abdomen pelvis showed regional fat stranding of the pancreatic head and duodenum concerning for acute pancreatitis with possible reactive duodenitis. No pancreatic necrosis noted or pseudocyst. Patient had cholelithiasis with no CT evidence of acute cholecystitis. Patient had right kidney cysts. Had compression fracture of L1. Patient started on Protonix IV. Discussed case with hospitalist will evaluate patient for admission. Concern for duodenitis and bleeding ulcer. Lab Data Attestation: I reviewed the patient's lab results. Labs: Laboratory Results - last 24 hr 03/29/25 03/29/25 23:44 23:49 WBC 20.7 H RBC 4.77 Hgb 15.8 Hct 45.2 MCV 94.8 H MCH 33.1 H MCHC 35.0 RDW Std Deviation 47.6 H RDW Coeff of Josh 13.8 Plt Count 344 MPV 9.1 Immature Gran % (Auto) 0.500 Neut % (Auto) 78.3 H Lymph % (Auto) 12.7 L [place] % (Auto) 8.3 Eos % (Auto) 0.0 Baso % (Auto) 0.2 Absolute Neuts (auto) 16.2 H Absolute Lymphs (auto) 2.63 Nucleated RBC % 0 Differential Comment SCANNED Sodium 133 Potassium 4.6 Chloride 95 L Carbon Dioxide 23.7 Anion Gap 15 BUN 21 H Creatinine 1.34 H Estim Creat Clear Calc 47.00 L Est GFR (MDRD) Non-Af 51 L BUN/Creatinine Ratio 15.9 Glucose 175 H Lactic Acid 3.2 H* Calcium 10.2 Total Bilirubin 1.11 AST 37 ALT 10 Alkaline Phosphatase 112 Total Protein 7.1 Albumin 3.9 Globulin 3.3 Albumin/Globulin Ratio 1.2 Lipase 29 Blood Type O POSITIVE Antibody Screen NEGATIVE Radiography Diagnostic Testing: Clinical Impression(s) from Imaging Studies Abdomen/Pelvis CT 03/30/25 00:12 IMPRESSION: 1. Regional fat stranding of the pancreatic head and duodenum concerning for acute pancreatitis with possible reactive duodenitis. No pancreatic necrosis or pseudocyst formation at this moment. 2. Cholelithiasis with no CT evidence of acute cholecystitis. 3. Right kidney parapelvic cyst measures 2.4 x 4.1 x 2.1 cm. 4. 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 Reading Location: [facility] EKG Initial EKG: Attestation: I personally reviewed and interpreted this EKG as follows: Comments: Sinus rhythm with rate of 84 bpm with right bundle branch block Discharge Plan Dx/Rx/DC Orders Clinical Impression: Duodenitis, Acute upper GI bleeding, Vomiting Disposition Disposition: Acute Care [facility]
[2025-03-29] MEDS: 0.9% Normal Saline (1000mL) 1,000 ML 1000 ML IV (23:53)
[2025-03-30 00:06] LABS: Hematocrit 45.2 % (40-54); Hemoglobin 15.8 g/dL (13.0-16.5); Immature Granulocytes Count 0.100 X10^3/uL (0.0-0.0); Mean Corp Hgb Conc 35.0 g/dL (32-36); Mean Corpuscular Volume 94.8 fL (80-94); Mean Platelet Vol. 9.1 fl (6.2-12.0); NRBC Flagged by Analyzer 0 % (0-5); POSITIVE DIFFERENTIAL YES; Platelet Count 344 K/mm3 (150-450); RBC Distribution Width CV 13.8 % (11.6-14.6); RBC Distribution Width SD 47.6 fl (35.1-43.9); Red Blood Count 4.77 M/mm3 (4.6-6.2); White Blood Count 20.7 K/mm3 (4.4-11.0)
[2025-03-30 00:09] LABS: Differential Indicated SCAN CRITERIA MET
--- NOTE | 2025-03-30 00:12 | CT_ITS ---
PROCEDURE: ABDOMEN/PELVIS W IV CONT ONLY 03/29/2025 REASON FOR EXAM: VOMITTING TECHNIQUE: Procedure Code: [id number] Modality: CT Procedure: ABDOMEN/PELVIS W IV CONT ONLY Coronal and Sagittal reconstruction series were provided. CONTRAST: 100 cc of Isovue 370 One or more dose reduction techniques were used (e.g., Automated exposure control, adjustment of the mA and/or kV according to patient size, use of iterative reconstruction technique. COMPARISON: None available. FINDINGS: Lung bases: Left pleural thickening with scattered pleural plaques. Liver: Normal size. No mass. Gallbladder: Small calcified gallstone in the gallbladder neck. No gallbladder wall thickening or surrounding fat stranding. No biliary ductal dilatation. Spleen: Normal size. Pancreas: Diffuse fat stranding surrounding the pancreatic head may represent pancreatitis. Additional thickening of the duodenal sweep may represent reactive duodenitis. No evidence of pancreatic necrosis or pseudocyst formation at this moment. Adrenals: No adrenal masses. Kidneys: Parapelvic right renal cyst measures 2.4 x 4.1 x 2.1 cm. No renal calculi or hydronephrosis bilaterally. Bladder: Unremarkable. Reproductive Organs: Prostate is nonenlarged. No pelvic masses. Bowel: No bowel obstruction. No inflammatory changes. Appendix: The appendix is not identified. There is no inflammatory process identified in the right lower quadrant to suggest appendicitis. Lymph nodes: Unremarkable. Vasculature: Moderate atherosclerotic calcifications. No aneurysm. Peritoneum / Retroperitoneum: No free fluid or air. Bones: Degenerative changes of the spine. Advanced degenerate changes throughout the lumbar spine. Chronic compression deformity of L1 with a proximally 20% superior height loss. Bilateral hip arthroplasties. Other: Small fat containing bilateral inguinal hernias. CT/Abdomen/Pelvis W IV Cont ONLY IMPRESSION: 1. Regional fat stranding of the pancreatic head and duodenum concerning for ac giovanni pancreatitis with possible reactive duodenitis. No pancreatic necrosis or pseudocyst formation at this moment. 2. Cholelithiasis with no CT evidence of acute cholecystitis. 3. Right kidney parapelvic cyst measures 2.4 x 4.1 x 2.1 cm. 4. 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 Reading Location: [facility]
--- OUTSIDE RECORDS SUMMARY | 2025-03-30 00:19 | XMS RPT_ITS | CCD ---
Author Organization [facility] Care Team Providers Care Reciprocating Drill Operator Name Role Phone Jose Xie Unavailable Unavailable Jose Xie Unavailable Unavailable SELF, SELF Referring Unavailable Dr. Mariela King Primary Care Provider Dr. Mariela Angulo Emergency Provider Dr. Mariela Merritt Admit Provider Dr. Mariela Merritt Attending Provider 1([facility])[phone] Mariela Merritt Other Provider Dr. Marco Verdin Attending Provider Dr. Marco Verdin Other Provider Dr. Natalie Berry Referring Provider Dr. Natalie Berry Attending Provider Dr. Natalie Berry Other Provider SELWYN Goldstein Attending Provider Dr. Marieal King Referring Provider SELWYN Manriquez Attending Provider Dr. Mariela King Primary Care Provider Dr. Marco Verdin Attending Provider Dr. Mariela King Primary Care Provider Dr. Mariela King Referring Provider SELWYN Manriquez Referring Provider SELWYN Manriquez Other Provider Dr. Garth Tory Attending Provider Dr. Mariela King Primary Care Provider Dr. Mariela King Referring Provider Real SAMANO PA Sis Silva Attending Provider Dr. Mariela King Primary Care Provider [phone] Mariela King Referring Provider Real SAMANO PA Sis Silva Attending Provider Dr. Mariela King Primary Care Provider [phone] Mariela King Referring Provider [phone] Real SAMANO PA Sis Silva Attending Provider Fernando MACHUCA, Dr. Urbina Primary Care Provider Fernando MACHUCA, Dr. Urbina Attending Provider [phone] Fernando MACHUCA, Dr. Urbina Referring Provider [phone] Raina MACHUCA, Dr. Flores Attending Provider Fernando MACHUCA, Dr. Urbina Primary Care Physician Fernando MACHUCA, Dr. Urbina Attending Physician Raina MACHUCA, Dr. Flores Attending Physician [phone] Raina MACHUCA, Dr. Flores Referring Provider Michele MACHUCA, Dr. Urbina Attending Physician Mariela King Primary Care Unavailable Mariela Bautista Attending Unavailable Mark Paris Referring Unavailable Mariela King Primary Care Unavailable Mark Paris Referring Unavailable Mark Paris Attending Unavailable Mariela King Attending Unavailable Mariela King Primary Care Unavailable Mariela King Referring Unavailable Mariela King Referring Unavailable Mariela King Primary Care Unavailable Mark Paris Attending Unavailable Allergies Allergy Classification Reported Allergen(s) Allergy Type Date of Onset Reaction(s) Facility (2 sources) Angiotensin Converting Enzyme (Rubio) Inhibitors drug allergy 5 cough [facility] Work Phone: (4 sources) aspirin drug allergy 1 Upset stomach [facility] Work Phone: (2 sources) penicillin drug allergy 1 [facility] Work Phone: (11 sources) oxyCODONE Drug Allergy [address] [facility] (12 sources) Penicillins; Translations: [Penicillins] Allergy to substance [address] [facility] (1 source) oxyCODONE Drug Allergy 5 [facility] Repository Medications Current Medications Medication Drug Class(es) Dates Sig (Normalized) Sig (Original) aspirin 81 mg delayed release oral tablet (20 sources) Nonsteroidal Anti-inflammatory Drug Start: 05-24-2021 Start: 04-10-2017 End: 05-24-2021 take 1 tablet by mouth at bedtime Aspirin 81 MG tablet,chewable Discontinued 81 mg PO AT BEDTIME April 10, 2017 1:00am May 24, 2021 10:34am heart Start: 09-24-2010 take 1 tablet by esther th once daily ASPIRIN 81 MG TABS One tablet by mouth daily ASPIRIN [id number] Shobha Silva [place] Start: 09-24-2010 take 1 tablet by esther th once daily ASPIRIN 81 MG TABS One tablet by mouth daily ASPIRIN [id number] Shobha Silva [place] Start: 09-24-2010 take 1 tablet by esther th once daily ASPIRIN EC 81 MG TBEC One tablet by mouth daily ASPIRIN [id number] Sis Patel RN cetirizine hydrochloride 5 mg oral tablet (2 sources) Histamine-1 Receptor Antagonist Start: 01-03-2025 take 1 tablet by mouth once daily as needed chlorpheniramine maleate 4 mg oral tablet (2 sources) Histamine-1 Receptor Antagonist Start: 01-03-2025 take 1 tablet by mouth at bedtime escitalopram 10 mg oral tablet (20 sources) Serotonin Reuptake Inhibitor Start: 11-14-2023 take 2 tablets by mouth once daily Start: 04-21-2021 End: 11-14-2023 take 1 tablet by mouth once daily Escitalopram Oxalate 10 mg Tablet Discontinued 10 mg PO DAILY 30 30 0 April 21, 2021 1:00am November 14, 2023 3:10pm Start: 2017 End: 04-21-2021 take 1 tablet by mouth once daily Escitalopram Oxalate (Lexapro) 5 mg tablet Discontinued 5 mg PO DAILY 2017 12:00am April 21, 2021 9:28pm DEPRESSION Miscellaneous Medical Supply (16 sources) Start: 05-05-2021 Miscellaneous Medical Supply Active 1 EACH MC .PRN 1 360 May 05, 2021 11:44am Handicap placard for patient use as needed D/T limited mobility and recovery. Start: 05-05-2021 End: 05-05-2021 Miscellaneous Medical Supply Discontinued 1 PACKET MC .PRN 1 180 May 05, 2021 11:40am May 05, 2021 11:44am Handicap placard to use as needed d/t limited mobility. Start: 05-05-2021 End: 04-30-2022 Miscellaneous Medical Supply Discontinued 1 EACH MC .PRN 1 360 May 05, 2021 1:00am April 30, 2022 1:11am Handicap placard for patient use as needed D/T limited mobility and recovery. Start: 05-05-2021 Miscellaneous Medical Supply Active 1 EACH MC .PRN 1 360 May 05, 2021 1:00am Handicap placard for patient use as needed D/T limited mobility and recovery. Start: 05-05-2021 End: 05-05-2021 Miscellaneous Medical Supply Discontinued 1 PACKET MC .PRN 1 180 May 05, 2021 1:00am May 05, 2021 11:44am Handicap placard to use as needed d/t limited mobility. Multivitamin preparation (8 sources) Start: 05-20-2020 take 1 tablet by mouth once daily Multivitamin Active 1 TABLET PO DAILY May 20, 2020 3:18pm Start: 05-20-2020 take 1 tablet by esther once daily Multivitamin Active 1 TABLET PO DAILY May 20, 2020 1:00am Multivitamin tablet (3 sources) Start: 05-20-2020 Start: 05-20-2020 Multivitamin t ablet Active 1 {tbl} PO DAILY May 20, 2020 1:00am Supplement Vitamin B Complex (8 sources) Start: 03-22-2021 take 1 capsule by mo uth once daily Vitamin B Complex Active 1 CAP PO DAILY March 22, 2021 6:35pm Start: 03-22-2021 take 1 capsule by mo uth once daily Vitamin B Complex Active 1 CAP PO DAILY March 22, 2021 1:00am Vitamin B Complex Capsule (3 sources) Start: 03-22-2021 Start: 03-22-2021 Vitamin B Comp steven Capsule Active 1 NMA PO DAILY March 22, 2021 1:00am SUPPLEMENT Completed/Discontinued Medications Medication Drug Class(es) Dates Sig (Normalized) Sig (Original) acetaminophen 500 mg oral tablet (20 sources) Start: 04-21-2021 End: 08-25-2021 take 2 tablets by mouth twice daily in the evening Acetaminophen 500 mg tablet Discontinued 1000 mg PO TWICE A DAY May 24, 2021 10:35am August 25, 2021 9:05am tylenol pm Start: 04-21-2021 End: 05-24-2021 take 2 tablets by mouth every eight hours Acetaminophen 500 mg Tablet Discontinued 1000 mg PO EVERY 8 HOURS 0 0 April 21, 2021 1:00am May 24, 2021 10:36am Start: 03-26-2021 End: 04-21-2021 take 500-1000 mg by mouth at bedtime as needed for sleep Acetaminophen 500 mg Tablet Discontinued 500 - 1000 mg PO AT BEDTIME as needed for Sleep 0 0 March 26, 2021 1:00am April 21, 2021 9:27pm Start: 03-26-2021 End: 04-21-2021 Acetaminophen (Tylenol) 325 mg Tablet Discontinued 650 mg PO EVERY 6 HOURS NEEDED as needed for Pain Score 1-10/Temp > 100.7 F 0 0 March 26, 2021 1:00am April 21, 2021 9:27pm Start: 03-26-2021 End: 08-25-2021 take 1000 mg by mouth at bedtime Acetaminophen Discontinued 1000 MG PO AT BEDTIME 0 April 21, 2021 1:00am May 24, 2021 10:35am Start: 03-26-2021 End: 05-24-2021 take 1000 mg by mouth every eight hours Acetaminophen Discontinued 1000 MG PO EVERY 8 HOURS 0 April 21, 2021 1:00am May 24, 2021 10:36am Start: 03-26-2021 End: 04-21-2021 take 2 tablets by mouth every six hours as needed Acetaminophen (Tylenol) 325 mg Tablet Discontinued 650 MG PO EVERY 6 HOURS NEEDED 0 March 26, 2021 1:00am April 21, 2021 9:27pm Start: 04-26-2017 End: 2017 take 2 tablets by mouth at bedtime Acetaminophen 500 MG tablet Discontinued 1000 mg PO AT BEDTIME 0 April 26, 2017 1:00am 2017 10:19am Start: 04-26-2017 End: 2017 take 1000 mg by mouth at bedtime Acetaminophen Discontinued 1000 MG PO AT BEDTIME April 26, 2017 1:00am 2017 10:19am acetaminophen 500 mg / diphenhydrAMINE hydrochloride 25 mg oral tablet (20 sources) Histamine-1 Receptor Antagonist Start: 03-22-2021 End: 03-26-2021 Diphenhydramine-Acetaminophe n (Acetaminophen Pm) 25-500 mg Tablet Discontinued 1 - 2 {tbl} PO AT BEDTIME as needed for Sleep March 22, 2021 1:00am March 26, 2021 2:02pm Start: 04-10-2017 End: 04-26-2017 take 1 tablet by mouth at bedtime Diphenhydramine-Acetaminophen (Acetamino phen Pm) 1 EACH tablet Discontinued 2 NMA PO AT BEDTIME April 10, 2017 1:00am April 26, 2017 10:09pm sleep ; pain acetaminophen 325 mg / HYDROcodone bitartrate 5 mg oral tablet (20 sources) Opioid Agonist Start: 04-13-2017 End: 2017 Hydrocodone-Acetaminophen 1 TABLET tablet Discontinued 1 - 2 {tbl} PO EVERY 6 HOURS NEEDED as needed for Mild-moderate pain (scale 1-5) 30 0 April 26, 2017 10:09pm 2017 10:19am Fracture of right femur Unspecified fracture of right femur, initial encounter for closed fracture Start: 04-13-2017 End: 2017 take 1 tablet by mouth every six hours as needed Hydrocodone-Acetaminophen Discontinued 1 - 2 TABLET PO EVERY 6 HOURS NEEDED April 26, 2017 10:09pm 2017 10:19am albuterol 0.833 mg/ml / ipratropium bromide 0.167 mg/ml inhalation solution (11 sources) Anticholinergic, beta2-Adrenergic Agonist Start: 02-28-2020 End: 03-13-2020 take 1 mL by inhalation every six hours Ipratropium-Albuterol 3 ML solution for nebulization Discontinued 3 mL INHALATION EVERY 6 HOURS February 28, 2020 12:00am March 13, 2020 9:20am Start: 02-28-2020 End: 03-13-2020 take 1 mL by inhalation every six hours Ipratropium-Albuterol Discontinued 3 ML INHALATION EVERY 6 HOURS February 28, 2020 12:00am March 13, 2020 9:20am apixaban 2.5 mg oral tablet (20 sources) Factor Xa Inhibitor Start: 03-26-2021 End: 04-21-2021 take 1 tablet by mouth twice daily Apixaban (Eliquis) 2.5 mg tablet Discontinued 2.5 mg PO TWICE A DAY March 26, 2021 6:58pm April 21, 2021 9:26pm Blood Thinner atorvastatin 40 mg oral tablet (20 sources) HMG-CoA Reductase Inhibitor Start: 04-10-2017 End: 07-11-2024 take 1 tablet by mouth at bedtime Atorvastatin 40 mg tablet Discontinued 40 mg PO AT BEDTIME 90 3 August 14, 2023 1:13pm July 11, 2024 1:26pm cholesterol lowering Start: 09-24-2010 take 1 tablet by esther th at bedtime LIPITOR 40 MG TABS One tablet by mouth at bedtime. ATORVASTATIN CALCIUM [id number] Garth Troy MD bisacodyl 5 mg delayed release oral tablet (11 sources) Stimulant Laxative Start: 04-26-2017 End: 2017 take 2 tablets by mouth once daily as needed for constipation Bisacodyl 5 MG tablet Discontinued 10 mg PO DAILY as needed for Constipation 30 April 26, 2017 1:00am 2017 10:21am Start: 04-26-2017 End: 2017 take 10 mg by mouth once daily Bisacodyl Discontinued 10 MG PO DAILY April 26, 2017 1:00am 2017 10:21am clopidogrel 75 mg oral tablet (6 sources) P2Y12 Platelet Inhibitor Start: 09-24-2010 PLAVIX 75 MG TABS One tablet by mouth daily (complete current supply then STOP) CLOPIDOGREL BISULFATE [id number] Garth Troy MD dexamethasone 4 mg oral tablet (11 sources) Corticosteroid Start: 03-23-2020 End: 03-28-2020 take 6 mg by mouth once daily Dexamethasone 4 MG tablet Discontinued 6 mg PO DAILY 5 5 0 March 23, 2020 1:00am March 27, 2020 1:00am March 28, 2020 1:02am Start: 03-23-2020 End: 03-28-2020 take 6 mg by mouth once daily Dexamethasone Discontinu ed 6 MG PO DAILY 5 5 March 23, 2020 1:00am March 28, 2020 1:02am diphenhydrAMINE hydrochloride 25 mg oral capsule (11 sources) Histamine-1 Receptor Antagonist Start: 03-26-2021 End: 04-21-2021 Diphenhydramine Hcl (Banophen) 25 mg Capsule Discontinued 25 - 50 mg PO AT BEDTIME as needed for Sleep 0 0 March 26, 2021 1:00am April 21, 2021 9:27pm docusate sodium 100 mg oral capsule (20 sources) Start: 03-18-2020 End: 04-21-2021 take 1 capsule by mouth twice daily Docusate Sodium 100 MG capsule Discontinued 100 mg PO TWICE A DAY March 18, 2020 1:00am April 21, 2021 9:27pm CONSTIPATION Start: 04-10-2017 End: 04-26-2017 take 1 capsule by mouth twice daily Docusate Sodium (Dok) 100 MG capsule Discontinued 100 mg PO TWICE A DAY April 10, 2017 1:00am April 26, 2017 10:09pm constipation docusate sodium 50 mg / sennosides, custodial 8.6 mg oral tablet (11 sources) Start: 04-26-2017 End: 2017 Sennosides-Docusate Sodium 1 TABLET tablet Discontinued 2 {tbl} PO TWICE A DAY 120 0 April 26, 2017 1:00am 2017 10:21am Start: 04-26-2017 End: 2017 take 2 tablets by mouth twice daily Sennosides-Docusate Sodium Discontinued 2 TABLET PO TWICE A DAY 120 April 26, 2017 1:00am 2017 10:21am doxycycline hyclate 100 mg oral tablet (11 sources) Tetracycline-class Drug Start: 05-16-2019 End: 11-11-2019 take 1 tablet by mouth twice daily Doxycycline Hyclate 100 mg tablet Discontinued 100 mg PO TWICE A DAY May 16, 2019 1:00am November 11, 2019 3:36pm FLUoxetine 20 mg oral capsule (20 sources) Serotonin Reuptake Inhibitor Start: 04-13-2017 End: 2017 take 1 capsule by mouth once daily Fluoxetine 20 MG capsule Discontinued 20 mg PO DAILY 30 0 April 26, 2017 10:09pm 2017 10:19am depression furosemide 20 mg oral tablet (20 sources) Loop Diuretic Start: 02-28-2020 End: 03-13-2020 take 1 tablet by mouth once daily Furosemide 20 MG tablet Discontinued 20 mg PO DAILY February 28, 2020 12:00am March 13, 2020 9:20am Start: 11-05-2018 End: 05-16-2019 take 1 tablet by mouth once daily Furosemide 20 mg tablet Discontinued 20 mg PO DAILY 30 November 05, 2018 12:00am May 16, 2019 11:05am isosorbide (4 sources) Start: 01-23-2012 take 1 tablet by esther th once daily IMDUR 30 MG [id number] One tablet by mouth daily ISOSORBIDE MONONITRATE [id number] Garth Troy MD Start: 01-23-2012 End: 02-02-2012 take 1 tablet by mouth once daily IMDUR 30 MG [id number] One tablet by mouth daily ISOSORBIDE MONONITRATE [id number] Lilian Hodge RN lansoprazole 30 mg delayed release oral capsule (20 sources) Proton Pump Inhibitor Start: 2017 End: 02-22-2022 take 1 capsule by mouth once daily as needed Lansoprazole 30 mg capsule,delayed release(DR/EC) Discontinued 30 mg PO DAILY NEEDED as needed for acid reflux 2017 10:20am February 22, 2022 10:17am Start: 04-10-2017 End: 2017 take 2 capsules by mouth once daily as needed Lansoprazole 30 MG capsule Discontinued 60 mg PO DAILY NEEDED as needed for acid reflux April 10, 2017 1:00am 2017 10:21am Start: 04-10-2017 End: 2017 take 60 mg by mouth once daily as needed Lansoprazole Discontinued 60 MG PO DAILY NEEDED April 10, 2017 1:00am 2017 10:21am Start: 09-24-2010 take 1 tablet by esther th once daily as needed PREVACID 30 MG CPDR One tablet by mouth daily as needed LANSOPRAZOLE [id number] Garth Troy MD Start: 09-24-2010 take 1 tablet by esther th once daily as needed PREVACID 30 MG CPDR One tablet by mouth daily as needed LANSOPRAZOLE [id number] Garth Troy MD lisinopril 10 mg oral tablet (20 sources) Angiotensin Converting Enzyme Inhibitor Start: 02-27-2020 End: 05-20-2020 take 1 tablet by mouth once daily Lisinopril 10 MG tablet Discontinued 10 mg PO DAILY March 18, 2020 5:12pm May 20, 2020 3:17pm BP magnesium hydroxide 80 mg/ml oral suspension (11 sources) Start: 04-13-2017 End: 04-26-2017 take 1 mL by mouth once daily as needed for constipation Magnesium Hydroxide 30 ML Udc Discontinued 30 mL PO DAILY NEEDED as needed for Constipation 1 April 13, 2017 1:00am April 26, 2017 10:09pm Start: 04-13-2017 End: 04-26-2017 take 1 mL by mouth once daily as needed Magnesium Hydroxide Discontinued 30 ML PO DAILY NEEDED April 13, 2017 1:00am April 26, 2017 10:09pm 24 hr metoprolol succinate 25 mg extended release oral tablet (20 sources) beta-Adrenergic Ignacio Start: 05-24-2021 End: 07-03-2024 take 1 tablet by mouth once daily Metoprolol Succinate 25 mg tablet extended release 24 hr Discontinued 25 mg PO DAILY 90 3 August 14, 2023 1:13pm July 03, 2024 2:14pm Start: 04-21-2021 End: 05-24-2021 take 1 tablet by mouth once daily Metoprolol Succinate 50 mg Tablet Extended Release 24 Hr Discontinued 50 mg PO DAILY 30 30 0 April 21, 2021 1:00am May 24, 2021 10:51am Start: 04-10-2017 End: 04-21-2021 take 1 tablet by mouth once daily Metoprolol Succinate 25 mg tablet extended release 24 hr Discontinued 25 mg PO DAILY 90 3 December 07, 2020 12:02pm April 21, 2021 9:27pm blood pressure Start: 09-24-2010 take 1 tablet by esther th once daily METOPROLOL TARTRATE 25 MG TABS One tablet by mouth daily METOPROLOL TARTRATE [id number] Garth Troy MD Start: 09-24-2010 take 1 tablet by esther th twice daily METOPROLOL TARTRATE 25 MG TABS One tablet by mouth twice daily METOPROLOL TARTRATE [id number] Garth Troy MD mirtazapine 7.5 mg oral tablet (11 sources) Start: 04-10-2017 End: 04-13-2017 take 1 tablet by mouth at bedtime Mirtazapine 7.5 MG tablet Discontinued 7.5 mg PO AT BEDTIME April 10, 2017 1:00am April 13, 2017 4:41pm rls, sleep Miscellaneous Medical Supply misc (3 sources) Start: 05-05-2021 End: 04-30-2022 Miscellaneous Medical Supply misc Discontinued 1 NMA MC .PRN as needed for hx of left hip fracture with repair 1 360 0 May 05, 2021 1:00am April 29, 2022 1:00am April 30, 2022 1:11am Status post-operative repair of closed fracture of left hip Other specified postprocedural states Personal history of (healed) traumatic fracture Handicap placard for patient use as needed D/T limited mobility and recovery. Miscellaneous Medical Supply packet (3 sources) Start: 05-05-2021 End: 05-05-2021 Miscellaneous Medical Supply packet Discontinued 1 NMA MC .PRN as needed for hx of left hip fracture 1 180 0 May 05, 2021 1:00am October 31, 2021 12:00am May 05, 2021 11:44am Status post-operative repair of closed fracture of left hip Other specified postprocedural states Personal history of (healed) traumatic fracture Handicap placard to use as needed d/t limited mobility. nitroglycerin 0.4 mg sublingual tablet (20 sources) Nitrate Vasodilator Start: 06-21-2017 End: 11-26-2020 Nitroglycerin 0.4 mg tablet, sublingual Discontinued 0.4 mg SL every 5 to 15 minutes as needed for chest pain 23 07October 03, 2019 3:51pm November 26, 2020 2:34pm until response; do not exceed 3 doses per event Start: 06-21-2017 End: 11-26-2020 Nitroglycerin Discontinued 0 .4 MG SL every 5 to 15 minutes October 03, 2019 3:51pm November 26, 2020 2:34pm until response; do not exceed 3 doses per event Start: 02-02-2012 End: 08-15-2012 NITRO-DUR 0.2 MG/HR PT24 0.2 mg topically in the AM and off in the PM NITROGLYCERIN [id number] Garth Troy MD Start: 02-02-2012 NITRO-DUR 0.2 MG/HR PT24 0.2 mg topically in the AM and off in the PM NITROGLYCERIN [id number] Garth Troy MD Start: 02-02-2012 End: 08-15-2012 NITRO-DUR 0.2 MG/HR PT24 0.2 mg topically in the AM and off in the PM NITROGLYCERIN [id number] Garth Troy MD Start: 09-24-2010 NITROGLYCERIN 0.4 MG SUBL 1 tablet under the tongue every 5 minutes times 3 as needed for chest pain. NITROGLYCERIN [id number] Garth Troy MD polyethylene glycol 3350 68707 mg powder for oral solution (11 sources) Osmotic Laxative Start: 04-26-2017 End: 2017 take 17 g by mouth once daily Polyethylene Glycol 3350 17 GM packet Discontinued 17 g PO DAILY 30 April 26, 2017 1:00am 2017 10:20am polysaccharide iron complex 150 mg oral capsule (20 sources) Start: 04-21-2021 End: 10-24-2022 Polysaccharide Iron Complex (Ferrex 150) 150 mg iron Capsule Discontinued 150 mg PO DAILY WITH MEALS 30 April 21, 2021 1:00am October 24, 2022 11:05am Start: 04-26-2017 End: 2017 take 1 capsule by mouth once daily at mealtime Polysaccharide Iron Complex 150 MG capsule Discontinued 150 mg PO DAILY WITH MEALS 30 April 26, 2017 1:00am 2017 10:20am potassium chloride 20 meq extended release oral tablet (19 sources) Start: 02-28-2020 End: 03-13-2020 take 20 mEq by mouth once daily Potassium Chloride Discontinued 20 MEQ PO DAILY February 28, 2020 12:00am March 13, 2020 9:20am Start: 11-05-2018 End: 05-16-2019 take 1 tablet by mouth once daily Potassium Chloride 20 mEq tablet extended release Discontinued 20 meq PO DAILY 30 November 05, 2018 12:00am May 16, 2019 11:05am Potassium Chloride 20 MEQ Tab.Er.Prt (3 sources) Start: 02-28-2020 End: 03-13-2020 take 1 tablet by mouth once daily Potassium Chloride 20 MEQ Tab.Er.Prt Discontinued 20 meq PO DAILY February 28, 2020 12:00am March 13, 2020 9:20am 12 hr ranolazine 500 mg extended release oral tablet (4 sources) Anti-angin al Start: 08-15-2012 End: 05-06-2013 take 1 tablet by mouth twice daily RANEXA 500 MG [id number] One tablet by mouth twice daily RANOLAZINE [id number] Garth Troy MD Start: 08-15-2012 take 1 tablet by esther th twice daily RANEXA 500 MG [id number] One tablet by mouth twice daily RANOLAZINE [id number] Garth Troy MD Start: 08-15-2012 End: 05-06-2013 take 1 tablet by mouth twice daily RANEXA 500 MG [id number] One tablet by mouth twice daily RANOLAZINE [id number] Garth Troy MD rivaroxaban 10 mg oral tablet (20 sources) Factor Xa Inhibitor Start: 04-13-2017 End: 2017 take 1 tablet by mouth once daily Rivaroxaban 10 MG tablet Discontinued 10 mg PO DAILY April 26, 2017 10:09pm 2017 10:21am blood thinner 24 hr rivastigmine 0.192 mg/hr transdermal system (3 sources) Start: 11-14-2023 End: 01-03-2025 Rivastigmine 4.6 mg/24 hour patch 24 hour Discontinued 1 NMA TOPICAL daily November 14, 2023 12:00am January 03, 2025 10:37am sertraline 50 mg oral tablet (4 sources) Serotonin Reuptake Inhibitor Start: 09-24-2010 End: 05-26-2014 take 1 tablet by mouth once daily ZOLOFT 50 MG TABS One tablet by mouth daily SERTRALINE HCL [id number] Shobha [place] tamsulosin hydrochloride 0.4 mg oral capsule (20 sources) alpha-Adrenergic Ignacio Start: 03-26-2021 End: 04-21-2021 take 1 capsule by mouth once daily Tamsulosin 0.4 mg capsule Discontinued 0.4 mg PO DAILY@1730 March 26, 2021 6:58pm April 21, 2021 9:27pm Urinary Retention tiZANidine 4 mg oral capsule (11 sources) Central alpha-2 Adrenergic Agonist Start: 02-26-2020 End: 03-13-2020 take 1 capsule by mouth at bedtime Tizanidine 4 MG capsule Discontinued 4 mg PO AT BEDTIME February 26, 2020 12:00am March 13, 2020 9:20am traMADol hydrochloride 50 mg oral tablet (20 sources) Opioid Agonist Start: 03-26-2021 End: 05-24-2021 Tramadol 50 mg Tablet Discontinued 50 mg PO 1230 14 14 0 April 21, 2021 1:00am May 24, 2021 10:36am traZODone hydrochloride 100 mg oral tablet (4 sources) Serotonin Reuptake Inhibitor Start: 09-24-2010 End: 05-06-2013 take 1 tablet by mouth once daily in the evening TRAZODONE HCL 100 MG TABS 1 tablet by mouth every evening TRAZODONE HCL [id number] Garth Troy MD zolpidem tartrate 5 mg oral tablet (20 sources) gamma-Aminobutyri c Acid-ergic Agonist Start: 04-13-2017 End: 2017 take 1 tablet by mouth at bedtime as needed Zolpidem 5 MG tablet Discontinued 5 mg PO AT BEDTIME NEEDED as needed for Insomnia April 26, 2017 10:09pm 2017 10:21am Insomnia Insomnia, unspecified Problems Active Problems Problem Classification Problem Date Documented Da te Episodic/Chronic Abdominal pain (5 sources) Abdominal pain - cause unknown; Translations: [Epigastric pain] 01-03-2023 Episodic Acute cerebrovascular disease (11 sources) Cerebrovascular accident; Translations: [Cerebral infarction, unspecified] 02-29-2020 Chronic Aortic; peripheral; and visceral artery aneurysms (20 sources) Aortic root dilatation; Translations: [Thoracic aortic ectasia] Chronic Cardiac dysrhythmias (2 sources) Premature atrial contraction; Translations: [Atrial premature depolarization] Onset: 1 09-24-2010 Chronic Chronic obstructive pulmonary disease and bronchiectasis (11 sources) Chronic obstructive lung disease; Translations: [Chronic obstructive pulmonary disease, unspecified] 02-26-2020 Chronic Complication of device; implant or graft (4 sources) Atherosclerosis of coronary artery bypass graft(s) without angina pectoris; Translations: [Atherosclerosis of coronary artery bypass graft(s) without angina pectoris] Onset: 1 09-24-2010 Chronic Conduction disorders (13 sources) Right bundle branch block; Translations: [Unspecified right bundle-branch block] Onset: 1 09-24-2010 Chronic Coronary atherosclerosis and other heart disease (20 sources) Angina pectoris; Translations: [Coronary arteriosclerosis] Onset: 2 01-23-2012 Chronic Deficiency and other anemia (11 sources) Anemia; Translations: [Anemia, unspecified] 03-24-2021 Episodic Deficiency and other anemia (5 sources) Anemia, unspecified; Translations: [Anemia, unspecified] Episodic Diseases of white blood cells (12 sources) Leukocytosis; Translations: [Elevated white blood cell count, unspecified] Chronic Disorders of lipid metabolism (20 sources) Hyperlipidemia; Translations: [Hyperlipidemia, unspecified] Onset: 1 09-24-2010 Chronic E Codes: Fall (11 sources) Fall; Translations: [Unspecified fall, initial encounter] 02-26-2020 Episodic Esophageal disorders (12 sources) Gastroesophageal reflux disease; Translations: [Gastro-esophageal reflux disease without esophagitis] Chronic Essential hypertension (20 sources) Benign essential hypertension; Translations: [Essential (primary) hypertension] Chronic Fluid and electrolyte disorders (20 sources) Hyponatremia; Translations: [Hypo-osmolality and hyponatremia] Episodic Fracture of neck of femur (hip) (20 sources) Fracture of bone of hip region; Translations: [Fracture of unspecified part of neck of unspecified femur, initial encounter for closed fracture] Episodic Malaise and fatigue (14 sources) Fatigue; Translations: [Asthenia] Onset: 2 07-25-2011 Episodic Mood disorders (12 sources) Depressive disorder; Translations: [Depression] Chronic Nausea and vomiting (11 sources) Vomiting; Translations: [Vomiting, unspecified] 03-18-2020 Episodic Nonspecific chest pain (20 sources) Chest discomfort; Translations: [Chest pain] Onset: 1 09-24-2010 Episodic Occlusion or stenosis of precerebral arteries (20 sources) Bilateral stenosis of carotid arteries; Translations: [Occlusion and stenosis of bilateral carotid arteries] Onset: 5 Chronic Other circulatory disease (14 sources) Carotid bruit; Translations: [Electrocardiogram abnormal] Onset: 1 09-24-2010 Episodic Other circulatory disease (1 source) Other specified symptoms and signs involving the circulatory and respiratory systems; Translations: [Other specified symptoms and signs involving the circulatory and respiratory systems] Onset: 5 Episodic Other gastrointestinal disorders (11 sources) Diarrhea; Translations: [Diarrhea, unspecified] 03-18-2020 Episodic Other lower respiratory disease (8 sources) Dyspnea; Translations: [Cough] Onset: 2 07-25-2011 Episodic Other lower respiratory disease (11 sources) Hypoxia; Translations: [Hypoxemia] 03-18-2020 Episodic Other nervous system disorders (11 sources) Expressive dysphasia; Translations: [Aphasia] 02-29-2020 Chronic Peripheral and visceral atherosclerosis (15 sources) Claudication; Translations: [Intermittent claudication due to atherosclerosis of artery of limb] Onset: 1 09-24-2010 Chronic Comment on above: CABG x4- MANZO to LAD , SVG to PDA, SVG to diagonal 1, SVG to post ventricular branch of the RCA 07/07/00 Residual codes; unclassified (20 sources) Insomnia; Translations: [Insomnia, unspecified] 03-26-2021 Episodic Residual codes; unclassified (11 sources) History of repair of hip joint; Translations: [Other specified postprocedural states] 03-24-2021 Episodic Residual codes; unclassified (3 sources) Other specified postprocedural states; Translations: [Other postprocedural status] Episodic Residual codes; unclassified (1 source) Insomnia, unspecified; Translations: [Insomnia, unspecified] Episodic Transient cerebral ischemia (20 sources) Transient cerebral ischemia; Translations: [Transient cerebral ischemic attack, unspecified] 05-20-2020 Chronic Unclassified (3 sources) Long-term drug therapy; Translations: [Other nursing home (current) drug therapy] Onset: 2 Resolved: 5 12-23-2014 Viral infection (11 sources) COVID-19; Translations: [Pneumonia due to COVID-19 virus] 03-18-2020 Episodic Past or Other Problems Problem Classification Problem Date Documented Date Episodic/Chronic Cardiac dysrhythmias (2 sources) Palpitations; Translations: [Palpitations] Onset: 1 09-24-2010 Episodic Coronary atherosclerosis and other heart disease (2 sources) Presence of aortocoronary bypass graft; Translations: [Presence of aortocoronary bypass graft] Onset: 1 09-24-2010 Episodic Other aftercare (3 sources) Long-term (current) use of other medications; Translations: [Other intermediate accountant (current) drug therapy] Onset: 2 Resolved: 5 07-21-2011 Episodic Other lower respiratory disease (1 source) Cough; Translations: [Cough] Onset: 5 01-19-2015 Episodic Other nutritional; endocrine; and metabolic disorders (3 sources) Body mass index (BMI) 29.0-29.9, adult; Translations: [Body mass index (BMI) 28.0-28.9, adult] Onset: 5 12-29-2014 Episodic Other nutritional; endocrine; and metabolic disorders (1 source) Body mass index (BMI) 28.0-28.9, adult; Translations: [Body mass index (BMI) 28.0-28.9, adult] Onset: 5 08-03-2015 Episodic Other screening for suspected conditions (not mental disorders or infectious disease) (1 source) Electrocardiogram abnormal; Translations: [Abnormal electrocardiogram [ECG] [EKG]] Onset: 1 09-24-2010 Episodic Results Test Name Value Interpretation Reference Range Facility Carotid Duplex Ultrasoundon 01-20-2025 Carotid Duplex Ultrasound [facility] [place] [address] Carotid Duplex Ultrasound 01/20/25 1406 MR#: [id number] Acct: [id number] Name: RANCHO MULLER Rep #: [id number] : 1935 89 From: Mariela Bautista MD Attending Dr: Dr. Mark Paris MD Status: RE G CLI Ordering Dr: Mark Paris MD Date: 01/20/25 Location: [facility] Sex: M C Admitted: Reason For Study Reason For Study: Bilateral Endarts 2020 Rt. Velocities/BP Lt. Velocities/BP Prox CCA 50/11 cm/sec. Prox CCA 78/11 cm/sec. Mid CCA 43/8 cm/sec. Mid CCA 67/16 cm/sec. Dist CCA 79/14 cm/sec. Dist CCA 67/12 cm/sec. Prox ICA 68/12 cm/sec. Prox ICA 71/16 cm/sec. Mid ICA 81/16 cm/sec. Mid ICA 87/16 cm/sec. Dist ICA 69/17 cm/sec. Dist ICA 64/15 cm/sec. Rt. ICA/CCA = 1.9. Lt. ICA/CCA = 1.30. Prox ECA 574/108 cm/sec. Prox ECA 72/9 cm/sec. Rt. Vert. 55/12 cm/sec. Lt. Vert. 54/12 cm/sec. Right Extracranial There is heterogeneous, irregular atherosclerotic plaque noted in the right common carotid artery. There is heterogeneous, irregular atherosclerotic plaque noted in the right internal carotid artery. There is heterogeneous, irregular atherosclerotic plaque noted in the right external carotid artery. Antegrade flow is noted in the right vertebral artery. Left Extracranial There is heterogeneous, irregular atherosclerotic plaque noted in the left common carotid artery. There is intimal thickening but no significant atherosclerotic plaque noted in the left internal carotid artery. There is heterogeneous, irregular atherosclerotic plaque noted in the left external carotid artery. Antegrade flow is noted in the left vertebral artery. Procedure Carotid Duplex [id number]. This is a Carotid Duplex examination using B-mode, color flow and specral Doppler. Exam performed in department. VL/Carotid Duplex Ultrasound Interpretation Summary Mild (<50%) stenosis right extracranial internal carotid. Normal left extracranial internal carotid. Patent and antegrade vertebrals bilaterally. Ordering Physician: Mark Paris Referring Physician: Mariela King [facility], [place] and Student 01/20/25 154 Date Mariela Bautista MD CC: Dr. Mariela King MD; Dr. Mark Paris MD Date Dictated: 01/20/25 140 Date Transcribed: 01/20/251546 [employer] Builder: Signed Normal [facility] Duplex ultrasound of carotid artery reportOrdered By: Mariela Bautista on 01-20-2025 Study report [facility] Cardi[facility] Services [address] [place] [address] Carotid Duplex Ultrasound 01/20/251405 MR#: [id number] Acct: [id number] Name: RANCHO MULLER Rep #:[id number] : 1935 89 From: Mariela Kyle Attending Dr: Dr. Mark Paris MD Status: REG CLI Ordering Dr: Mark Paris MD Date: 01/20/25 Location: [facility] Sex: M C Admitted: Reason For Study Reason For Study: Bilateral Endarts 2020 Rt. Velocities/BP Lt. Velocities/BP Prox CCA 50/11 cm/sec. Prox CCA 78/11 cm/sec. Mid CCA 43/8 cm/sec. Mid CCA 67/16 cm/sec. Dist CCA 79/14 cm/sec. Dist CCA 67/12 cm/sec. Prox ICA 68/12 cm/sec. Prox ICA 71/16 cm/sec. Mid ICA 81/16 cm/sec. Mid ICA 87/16 cm/sec. Dist ICA 69/17 cm/sec. Dist ICA 64/15 cm/sec. Rt. ICA/CCA = 1.9. Lt. ICA/CCA = 1.30. Prox ECA 574/108 cm/sec. Prox ECA 72/9 cm/sec. Rt. Vert. 55/12 cm/sec. Lt. Vert. 54/12 cm/sec. Right Extracranial There is heterogeneous, irregular atherosclerotic plaque noted in the right common carotid artery. There is heterogeneous, irregular atherosclerotic plaque noted in the right internal carotid artery. There is heterogeneous, irregular atherosclerotic plaque noted in the right external carotid artery. Antegrade flow is noted in the right vertebral artery. Left Extracranial There is heterogeneous, irregular atherosclerotic plaque noted in the left common carotid artery. There is intimal thickening but no significant atherosclerotic plaque noted in the left internal carotid artery. There is heterogeneous, irregular atherosclerotic plaque noted in the left external carotid artery. Antegrade flow is noted in the left vertebral artery. Procedure Carotid Duplex [id number]. This is a Carotid Duplex examination using B-mode, color flow and specral Doppler. Exam performed in department. VL/Carotid Duplex Ultrasound Interpretation Summary Mild (<50%) stenosis right extracranial internal carotid. Normal left extracranial internal carotid. Patent and antegrade vertebrals bilaterally. Ordering Physician: Mark Paris Referring Physician: Mariela King Performed By: [facility] [place] and Student 01/20/25 2977 Date _ Mariela Bautista MD CC: Dr. Mariela King MD; Dr. Mark Paris MD ~ Date Dictated: 01/20/25 1406 Date Transcribed: 01/20/251546 [employer] Builder: Signed [facility] Work Phone: Cardiology Visit Reporton Cardiology Visit Report [facility] [address] [place] [address] OFFICE VISIT Date of Service: 01/03/25 MR#: [id number] Acct: [id number] Name: RANCHO MULLER Rep #: [id number] : 1935 Provider: Dr. Mark thornton MD Age/Sex: 89/M Location: [facility] Status: Signed HPI HPI History of Present Illness Details: Patient is a very pleasant 89-year-old white male that comes in today for monitoring of his cardiovascular status. He was wearing a Scottie Hole shirt. Patient carries a history of coronary disease status post CABG in 2000 receiving a MANZO to the LAD vein graft to diagonal, PDA of the right coronary, and posterior ventricular branch of the right coronary artery. This was done at [facility]. His presenting symptoms were profound dyspnea on exertion. He denies any recurrence but he is limited given his orthopedic issues with activities at this time. Patient's last stress test from 2021 was done as a surveillance test it showed no evidence of ischemia and an estimated EF of 69%. Last echocardiogram in 2020 showed an EF of 60% with trivial valvular insufficiencies. Right ventricular systolic pressure was 23. Patient's blood pressure systolic is elevated at 172/69 this is unusual for him by his report. The patient has a history of peripheral vascular disease status post bilateral carotid endarterectomies in 2020 he does not remember having surveillance ultrasounds done he has not followed up with the vascular surgeon. This was done at [facility] after he had 2 TIAs. The patient denies any TIA symptoms at this time. The patient has chronic minimally pitting lower extremity edema with venous stasis changes on his lower extremities. He denies any significant shortness of breath denies any PND orthopnea. Intake Vital Signs 11/14/23 15:09 01/03/25 10:32 Height 6 ft 6 ft Weight: 219 lb BMI 29.7 BP 172/69 H Blood Pressure Location Rt brachial Position Sitting Respiration 16 Pulse 60 Pulse Source Monitor Pulse Oximetry (%) 92 Oxygen Delivery Method room air Intake Visit Reasons: 14 M FU Personnel Worker Required: No Accompanied by: Is patient in pain?: No Allergies Penicillins Allergy (Verified 01/03/25 10:33) Hives oxycodone Adverse Reaction (Unknown, Verified 01/03/25 10:33) Unknown Medications ???Medication ???Instructions ???Recorded ???Confirmed ???Type multivitamin 1 tab PO DAILY Supplement 05/20/20 01/03/25 History nitroglycerin 0.4 mg sublingual 0.4 mg sublingual Q5-15M PRN chest 11/26/20 01/03/25 Rx tablet pain #25 tabs vitamin B complex 1 cap PO DAILY SUPPLEMENT 03/22/21 01/03/25 History aspirin 81 mg tablet,delayed 81 mg PO DAILY 05/24/21 01/03/25 H istory release (Adult Low Dose Aspirin) escitalopram oxalate 10 mg tablet 20 mg PO DAILY 11/14/23 01/03/25 History metoprolol succinate 25 mg 25 mg PO DAILY #90 tabs 07/03/24 0 01/03/25 Rx tablet,extended release 24 hr atorvastatin 40 mg tablet 40 mg PO QHS cholesterol lowering 07/11/24 01/03/25 Rx #90 tabs cetirizine 5 mg tablet (Zyrtec) 5 mg PO QDAY PRN 01/03/25 01/03/25 History chlorpheniramine maleate 4 mg 4 mg PO QHS 01/03/25 01/03/25 Hist ory tablet (Allergy (chlorpheniramine)) Ejection fraction %: 60 Have you fallen in the past year?: Yes [facility] Medical History (Updated 01/03/25 @ 11:[address] Mark Paris MD) History of stress test Aortic root dilatation Bilateral carotid artery stenosis TIA (transient ischemic attack) Left carotid artery stenosis COPD (chronic obstructive pulmonary disease) Atherosclerosis of [place] arteries of extremity with intermittent claudication RBBB Carotid bruit Depression GERD (gastroesophageal reflux disease) Atherosclerotic heart disease of [place] coronary artery without angina pectoris Insomnia Hyperlipidemia Right femoral fracture Fall Hip fracture Surgical History H/O cardiac catheterization History of right-sided carotid endarterectomy ( 09/30/20) History of left-sided carotid endarterectomy ( 07/22/20) Hx of appendectomy 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 Normal [facility] Absolute lymphocyte countOrd ered By: Mariela King on 01-27-2023 Lymphocytes Auto (Unsp spec) [#/Vol] 2.38 10*3/uL 0.83-4.51 [facility] Basophil percentageOrdered B y: Mariela King on 01-27-2023 Basophils/100 WBC (Bld) 0.5 % 0-1 [facility] Eosinophils/100 WBC (Bld) 1.2 % 0-5 [facility] Neutrophils (Bld) [#/Vol] 8.2 10*3/uL 2.0-7.7 [facility] Neutrophils/100 WBC (Bld) 68.7 % 47-70 [facility] WBC (Bld) [#/Vol] 11.9 10*3/uL 4.4-11.0 [facility] Blood erythrocytes count (nu mber/volume)Ordered By: Mariela King on 01-27-2023 RBC (Bld) [#/Vol] 4.64 10*6/uL 4.6-6.2 [facility] Blood hemoglobin measurement (mass/volume)Ordered By: Mariela King on 01-27-2023 Hemoglobin (Bld) [Mass/Vol] 14.8 g/dL 13.0-16.5 [facility] Blood lymphocytes/100 leukoc ytesOrdered By: Mariela King on 01-27-2023 Lymphocytes/100 WBC (Bld) 20.0 % 19-41 [facility] Blood monocytes/100 leukocyt esOrdered By: Mariela King on 01-27-2023 Monocytes/100 WBC (Bld) 9.1 % 0-10 [facility] Blood platelet mean volumeOr dered By: Mariela King on 01-27-2023 Platelet mean volume (Bld) [Entitic vol] 9.0 fL 6.2-12.0 [facility] Determination of erythrocyte mean corpuscular volume (MCV)Ordered By: Mariela King on 01-27-2023 MCV (RBC) [Entitic vol] 96.8 fL 80-94 [facility] Hematocrit Auto (Bld) [Volum e fraction]Ordered By: Mariela King on 01-27-2023 Hematocrit (Bld) [Volume fraction] 44.9 % 40-54 [facility] Laboratory - Hematology and Cell countsOrdered By: Mariela King on 01-27-2023 Erythrocyte distribution width (RBC) [Entitic vol] 47.8 fL 35.1-43.9 [facility] Erythrocyte distribution width (RBC) [Ratio] 13.6 % 11.6-14.6 [facility] Immature granulocytes/100 WBC (Bld) 0.500 % 0.0-0.9 [facility] Comment on above: IG% - Immature Granu locytes (promyelocytes, myelocytes and metamyelocytes) > 1% indicates that a LEFT SHIFT is Present. MCH (RBC) [Entitic mass] 31.9 pg 27.0-32.0 [facility] Nucleated RBC/100 WBC (Bld) [Ratio] 0 % 0-5 [facility] MCHC Auto (RBC) [Mass/Vol]Or dered By: Mariela King on 01-27-2023 MCHC (RBC) [Mass/Vol] 33.0 g/dL 32-[address] [facility] Platelets bldOrdered By: Adrianna King on 01-27-2023 Platelets (Bld) [#/Vol] 294 10*3/uL 150-450 [facility] Serum or plasma C reactive p rotein measurement (mass/volume)Ordered By: Mariela King on 01-27-2023 CRP [Mass/Vol] 5.04 mg/L 0.0-3.0 [facility] Comment on above: C-Reactive Protein ( CRP) provides useful information for thediagnosis, therapy and monitoring of inflammatory processesand associated diseases. For the evaluation of Relative Riskfor Cardiovascular Disease, a High Sensitivity CRP (HSCRP)should be ordered. Absolute lymphocyte countOrd ered By: Toy Crandall on 01-03-2023 Lymphocytes Auto (Unsp spec) [#/Vol] 1.24 10*3/uL 0.83-4.51 [facility] Basophil percentageOrdered B y: Toy Crandall on 01-03-2023 Basophils/100 WBC (Bld) 0.4 % 0-1 [facility] Chloride [Moles/Vol] 103 mmol/L 98-107 [facility] Eosinophils/100 WBC (Bld) 0.7 % 0-5 [facility] Glucose [Mass/Vol] 123 mg/dL 74-106 [facility] Comment on above: Fasting Glucose resu lt from 100 to 125 mg/dL suggests IMPAIRED HOMEOSTASIS per A.D.A. criteria. Neutrophils (Bld) [#/Vol] 7.0 10*3/uL 2.0-7.7 [facility] Neutrophils/100 WBC (Bld) 74.9 % 47-70 [facility] Potassium [Moles/Vol] 4.6 mmol/L 3.5-5.[address] [facility] Sodium [Moles/Vol] 134 mmol/L 136-145 [facility] WBC (Bld) [#/Vol] 9.4 10*3/uL 4.4-11.0 [facility] Blood erythrocytes count (nu mber/volume)Ordered By: Toy Crandall on 01-03-2023 RBC (Bld) [#/Vol] 4.65 10*6/uL 4.6-6.2 [facility] Blood hemoglobin measurement (mass/volume)Ordered By: Toy Crandall on 01-03-2023 Hemoglobin (Bld) [Mass/Vol] 15.2 g/dL 13.0-16.5 [facility] Blood lymphocytes/100 leukoc ytesOrdered By: Toypetros Crandall on 01-03-2023 Lymphocytes/100 WBC (Bld) 13.2 % 19-41 [facility] Blood monocytes/100 leukocyt esOrdered By: Toypetros Crandall on 01-03-2023 Monocytes/100 WBC (Bld) 10.3 % 0-10 [facility] Blood platelet mean volumeOr dered By: Toy Crandall on 01-03-2023 Platelet mean volume (Bld) [Entitic vol] 8.8 fL 6.2-12.0 [facility] Determination of erythrocyte mean corpuscular volume (MCV)Ordered By: [facility] on 01-03-2023 MCV (RBC) [Entitic vol] 94.8 fL 80-94 [facility] Hematocrit Auto (Bld) [Volum e fraction]Ordered By: [facility] on 01-03-2023 Hematocrit (Bld) [Volume fraction] 44.1 % 40-54 [facility] Laboratory - Chemistry and C hemistry - challengeOrdered By: [facility] on 01-03-2023 CO2 [Moles/Vol] 28.0 mmol/L 21.0-32.0 [facility] Urea nitrogen/Creatinine [Mass ratio] 11.9 mg/mg 10-20 [facility] Laboratory - Hematology and Cell countsOrdered By: [facility] on 01-03-2023 Erythrocyte distribution width (RBC) [Entitic vol] 46.6 fL 35.1-43.9 [facility] Erythrocyte distribution width (RBC) [Ratio] 13.5 % 11.6-14.6 [facility] Immature granulocytes/100 WBC (Bld) 0.500 % 0.0-0.9 [facility] Comment on above: IG% - Immature Granu locytes (promyelocytes, myelocytes and metamyelocytes) > 1% indicates that a LEFT SHIFT is Present. MCH (RBC) [Entitic mass] 32.7 pg 27.0-32.0 [facility] Nucleated RBC/100 WBC (Bld) [Ratio] 0 % 0-5 [facility] MCHC Auto (RBC) [Mass/Vol]Or dered By: [facility] on 01-03-2023 MCHC (RBC) [Mass/Vol] 34.5 g/dL 32-[address] [facility] No Panel InformationOrdered By: [facility] on 01-03-2023 Troponin I High Sensitivity 8 pg/mL 3.0-78.0 [facility] Comment on above: Please Note: New [place] t Units and Gender Specific Reference Ranges. For more information see Policy Stat Procedure [place] High Sensitivity Troponin (TNIH) and attachments. Estimated GFR (MDRD) Amer 70 mL/min >60 [facility] Comment on above: GFR Calc Estimated GFR (MDRD) Non-Af Amer 58 mL/min >60 [facility] Comment on above: Non- GFR Calc Platelets bldOrdered By: Toy Crandall on 01-03-2023 Platelets (Bld) [#/Vol] 194 10*3/uL 150-450 [facility] Serum or plasma calcium eliseo urement (mass/volume)Ordered By: Toypetros Crandall on 01-03-2023 Calcium [Mass/Vol] 9.2 mg/dL 8.5-10.1 [facility] Serum or plasma creatinine m easurement (mass/volume)Ordered By: Toypetros Crandall on 01-03-2023 Creatinine [Mass/Vol] 1.26 mg/dL 0.70-1.[address] [facility] Comment on above: The validity of the calculated GFR & GFRAA in patients over 70 years has not been determined. Clinical correlation is essential. Serum or plasma urea nitroge n measurement (mass/volume)Ordered By: Toypetros Crandall on 01-03-2023 Urea nitrogen [Mass/Vol] 15 mg/dL 7-18 [facility] Thin prep Papanicolaou smear with manual screeningOrdered By: Toypetros Crandall on 01-03-2023 Thin prep Papanicolaou smear with manual screening 3 5-15 [facility] Basophil percentageon 2021 Bilirubin [Mass/Vol] 0.80 mg/dL 0.20-1.00 [facility] Work Phone: Comment on above: For patients on eltr ombopag therapy, use of Dimension [place] TBIL is not recommended. Cholesterol [Mass/Vol] 152 mg/dL <200 [facility] Work Phone: Comment on above: <200 mg/dL Desirable 200-240 mg/dL Borderline >240 mg/dL High Risk Protein [Mass/Vol] 7.1 g/dL 6.4-8.2 [facility] Work Phone: Triglyceride [Mass/Vol] 267 mg/dL <199 [facility] Work Phone: Comment on above: The drugs N-Acetylcy steine and Metamizole may falsely depress this assay.Serum Triglycerides Reference Interval Normal <150 mg/dL Borderline high 150 - 199 mg/dL High 200 - 499 mg/dL Very High > or = 500 mg/dL Direct bilirubinon Bilirubin.direct [Mass/Vol] 0.20 mg/dL 0.00-0.30 [facility] Work Phone: Laboratory - Chemistry and C hemistry - challengeon 02-22-2022 ALP [Catalytic activity/Vol] 93 U/L 45-117 [facility] Work Phone: [phone] ALT [Catalytic activity/Vol] 22 U/L 16-61 [facility] Work Phone: [phone] Globulin (S) [Mass/Vol] 3.7 g/dL 2.2-4.2 [facility] Work Phone: [phone] Serum or plasma albumin eliseo urement (mass/volume)on 02-22-2022 Albumin [Mass/Vol] 3.4 g/dL 3.2-5.0 [facility] Work Phone: [phone] Serum or plasma cholesterol in HDL measurement (mass/volume)on 02-22-2022 Cholesterol in HDL [Mass/Vol] 48 mg/dL >40 [facility] Work Phone: Comment on above: The drugs N-Acetylcy steine and Metamizole may falsely depress this assay. Reference Range HDL <40 mg/dL Low HDL Cholesterol HDL >or= 60 mg/dL High HDL Cholesterol Serum or plasma cholesterol in VLDL measurement (mass/volume)on 02-22-2022 Cholesterol in VLDL [Mass/Vol] 53 mg/dL 5-40 [facility] Work Phone: [phone] Serum or plasma low density lipoprotein (LDL) cholesterol measurement (mass/volume)on 02-22-2022 Cholesterol in LDL [Mass/Vol] 51 mg/dL 0-130 [facility] Work Phone: [phone] Thin prep Papanicolaou smear with manual screeningon 02-22-2022 Thin prep Papanicolaou smear with manual screening 19 U/L 15-37 [facility] Work Phone: [phone] Absolute lymphocyte counton 2021 Lymphocytes Auto (Unsp spec) [#/Vol] 1.55 10*3/uL 0.83-4.51 [facility] Work Phone: Basophil percentageon 2021 Basophils/100 WBC (Bld) 0.3 % 0-1 [facility] Work Phone: Eosinophils/100 WBC (Bld) 0.3 % 0-5 [facility] Work Phone: Neutrophils (Bld) [#/Vol] 11.2 10*3/uL 2.0-7.7 [facility] Work Phone: Neutrophils/100 WBC (Bld) 77.7 % 47-70 [facility] Work Phone: WBC (Bld) [#/Vol] 14.5 10*3/uL 4.4-11.0 [facility] Work Phone: Blood erythrocytes count (nu mber/volume)on 2021 RBC (Bld) [#/Vol] 4.48 10*6/uL 4.6-6.2 [facility] Work Phone: Blood hemoglobin measurement (mass/volume)on 2021 Hemoglobin (Bld) [Mass/Vol] 13.1 g/dL 13.0-16.5 [facility] Work Phone: Blood lymphocytes/100 leukoc yteson 2021 Lymphocytes/100 WBC (Bld) 10.7 % 19-41 [facility] Work Phone: Blood manual differential co mment interpretation (narrative result)on 2021 Manual differential comment Camilo (Bld) [Interp] SCANNED [facility] Work Phone: Comment on above: AUTO DIFF OK Blood monocytes/100 leukocyt eson 2021 Monocytes/100 WBC (Bld) 10.5 % 0-10 [facility] Work Phone: Blood platelet mean volumeon 2021 Platelet mean volume (Bld) [Entitic vol] 8.8 fL 6.2-12.0 [facility] Work Phone: [phone] Determination of erythrocyte mean corpuscular volume (MCV)on 2021 MCV (RBC) [Entitic vol] 89.3 fL 80-94 [facility] Work Phone: [phone] Hematocrit Auto (Bld) [Volum e fraction]on 2021 Hematocrit (Bld) [Volume fraction] 40.0 % 40-54 [facility] Work Phone: [phone] Laboratory - Hematology and Cell countson 2021 Erythrocyte distribution width (RBC) [Entitic vol] 57.0 fL 35.1-43.9 [facility] Work Phone: [phone] Erythrocyte distribution width (RBC) [Ratio] 17.4 % 11.6-14.6 [facility] Work Phone: [phone] Immature granulocytes/100 WBC (Bld) 0.500 % 0.0-0.9 [facility] Work Phone: [phone] Comment on above: IG% - Immature Granu locytes (promyelocytes, myelocytes and metamyelocytes) > 1% indicates that a LEFT SHIFT is Present. MCH (RBC) [Entitic mass] 29.2 pg 27.0-32.0 [facility] Work Phone: [phone] Nucleated RBC/100 WBC (Bld) [Ratio] 0 % 0-5 [facility] Work Phone: [phone] MCHC Auto (RBC) [Mass/Vol]on 2021 MCHC (RBC) [Mass/Vol] 32.8 g/dL 32-[address] [facility] Work Phone: [phone] Platelets bldon 2021 Platelets (Bld) [#/Vol] 265 10*3/uL 150-450 [facility] Work Phone: [phone] Absolute lymphocyte counton 08-30-2021 Lymphocytes Auto (Unsp spec) [#/Vol] 1.81 10*3/uL 0.83-4.51 [facility] Work Phone: [phone] Basophil percentageon 2021 Bilirubin [Mass/Vol] 0.50 mg/dL 0.20-1.00 [facility] Work Phone: Comment on above: For patients on eltr ombopag therapy, use of Dimension [place] TBIL is not recommended. Cholesterol [Mass/Vol] 140 mg/dL <200 [facility] Work Phone: Comment on above: <200 mg/dL Desirable 200-240 mg/dL Borderline >240 mg/dL High Risk Protein [Mass/Vol] 6.2 g/dL 6.4-8.2 [facility] Work Phone: [phone] Triglyceride [Mass/Vol] 333 mg/dL <199 [facility] Work Phone: [phone] Comment on above: The drugs N-Acetylcy steine and Metamizole may falsely depress this assay.Serum Triglycerides Reference Interval Normal <150 mg/dL Borderline high 150 - 199 mg/dL High 200 - 499 mg/dL Very High > or = 500 mg/dL Basophils/100 WBC (Bld) 0.4 % 0-1 [facility] Work Phone: Eosinophils/100 WBC (Bld) 0.8 % 0-5 [facility] Work Phone: [phone] Neutrophils (Bld) [#/Vol] 5.6 10*3/uL 2.0-7.7 [facility] Work Phone: [phone] Neutrophils/100 WBC (Bld) 66.7 % 47-70 [facility] Work Phone: [phone] WBC (Bld) [#/Vol] 8.4 10*3/uL 4.4-11.0 [facility] Work Phone: [phone] Blood erythrocytes count (nu mber/volume)on 08-30-2021 RBC (Bld) [#/Vol] 3.66 10*6/uL 4.6-6.2 [facility] [place] Work Phone: [phone] Blood hemoglobin measurement (mass/volume)on 08-30-2021 Hemoglobin (Bld) [Mass/Vol] 10.5 g/dL 13.0-16.5 [facility] Work Phone: Blood lymphocytes/100 leukoc yteson 08-30-2021 Lymphocytes/100 WBC (Bld) 21.5 % 19-41 [facility] Work Phone: Blood monocytes/100 leukocyt eson 08-30-2021 Monocytes/100 WBC (Bld) 10.2 % 0-10 [facility] Work Phone: [phone] Blood platelet mean volumeon 08-30-2021 Platelet mean volume (Bld) [Entitic vol] 9.7 fL 6.2-12.0 [facility] Work Phone: Determination of erythrocyte mean corpuscular volume (MCV)on 08-30-2021 MCV (RBC) [Entitic vol] 89.9 fL 80-94 [facility] Work Phone: Direct bilirubinon Bilirubin.direct [Mass/Vol] 0.11 mg/dL 0.00-0.30 [facility] Work Phone: Hematocrit Auto (Bld) [Volum e fraction]on 08-30-2021 Hematocrit (Bld) [Volume fraction] 32.9 % 40-54 [facility] Work Phone: Hemoglobin in reticulocytes (mass per reticulocyte)on 08-30-2021 Hemoglobin (Reticulocytes) [Entitic mass] 26.1 pg 30-35 [facility] Work Phone: Iron measurement (mass/mass) on 08-30-2021 Iron (Unsp spec) [Mass/Mass] 32 ug/dL 65-175 [facility] Work Phone: Laboratory - Chemistry and C hemistry - challengeon 08-30-2021 ALP [Catalytic activity/Vol] 85 U/L 45-117 [facility] Work Phone: ALT [Catalytic activity/Vol] 15 U/L 16-61 [facility] Work Phone: [phone] Globulin (S) [Mass/Vol] 2.9 g/dL 2.2-4.2 [facility] Work Phone: [phone] Laboratory - Hematology and Cell countson 08-30-2021 Erythrocyte distribution width (RBC) [Entitic vol] 42.7 fL 35.1-43.9 [facility] Work Phone: [phone] Erythrocyte distribution width (RBC) [Ratio] 13.1 % 11.6-14.6 [facility] Work Phone: [phone] Immature granulocytes/100 WBC (Bld) 0.400 % 0.0-0.9 [facility] Work Phone: [phone] Comment on above: IG% - Immature Granu locytes (promyelocytes, myelocytes and metamyelocytes) > 1% indicates that a LEFT SHIFT is Present. MCH (RBC) [Entitic mass] 28.7 pg 27.0-32.0 [facility] Work Phone: [phone] Nucleated RBC/100 WBC (Bld) [Ratio] 0 % 0-5 [facility] Work Phone: [phone] MCHC Auto (RBC) [Mass/Vol]on 08-30-2021 MCHC (RBC) [Mass/Vol] 31.9 g/dL 32-[address] [facility] Work Phone: No Panel Informationon 08-30 Immature Reticulocyte Fraction 28.30 % 3.00-15.90 [facility] Work Phone: [phone] Reticulocyte Count 2.10 % 0.5-1.5 [facility] Work Phone: [phone] Total Iron Binding Capacity 359 ug/dL 250-450 [facility] Work Phone: [phone] Platelets bldon 08-30-2021 Platelets (Bld) [#/Vol] 225 10*3/uL 150-450 [facility] Work Phone: Serum or plasma albumin eliseo urement (mass/volume)on 08-30-2021 Albumin [Mass/Vol] 3.3 g/dL 3.2-5.0 [facility] Work Phone: Serum or plasma cholesterol in HDL measurement (mass/volume)on 08-30-2021 Cholesterol in HDL [Mass/Vol] 37 mg/dL >40 [facility] Work Phone: Comment on above: The drugs N-Acetylcy steine and Metamizole may falsely depress this assay. Reference Range HDL <40 mg/dL Low HDL Cholesterol HDL >or= 60 mg/dL High HDL Cholesterol Serum or plasma cholesterol in VLDL measurement (mass/volume)on 08-30-2021 Cholesterol in VLDL [Mass/Vol] 67 mg/dL 5-40 [facility] Work Phone: Serum or plasma ferritin arie surement (mass/volume)on 08-30-2021 Ferritin [Mass/Vol] 15 ng/mL 26-388 [facility] Work Phone: Serum or plasma low density lipoprotein (LDL) cholesterol measurement (mass/volume)on 08-30-2021 Cholesterol in LDL [Mass/Vol] 36 mg/dL 0-130 [facility] Work Phone: Thin prep Papanicolaou smear with manual screeningon 08-30-2021 Thin prep Papanicolaou smear with manual screening 18 U/L 15-37 [facility] Work Phone: Absolute lymphocyte counton 07-19-2021 Lymphocytes Auto (Unsp spec) [#/Vol] 1.37 10*3/uL 0.83-4.51 [facility] Work Phone: Basophil percentageon 2021 Basophils/100 WBC (Bld) 0.2 % 0-1 [facility] Work Phone: [phone] Chloride [Moles/Vol] 105 mmol/L 98-107 [facility] Work Phone: Eosinophils/100 WBC (Bld) 1.2 % 0-5 [facility] Work Phone: Glucose [Mass/Vol] 114 mg/dL 74-106 [facility] Work Phone: Comment on above: Fasting Glucose resu lt from 100 to 125 mg/dL suggests IMPAIRED HOMEOSTASIS per A.D.A. criteria. Neutrophils (Bld) [#/Vol] 7.9 10*3/uL 2.0-7.7 [facility] Work Phone: Neutrophils/100 WBC (Bld) 76.3 % 47-70 [facility] Work Phone: Potassium [Moles/Vol] 4.4 mmol/L 3.5-5.1 [facility] Work Phone: Sodium [Moles/Vol] 137 mmol/L 136-145 [facility] Work Phone: WBC (Bld) [#/Vol] 10.3 10*3/uL 4.4-11.0 [facility] Work Phone: Blood erythrocytes count (nu mber/volume)on 07-19-2021 RBC (Bld) [#/Vol] 2.95 10*6/uL 4.6-6.2 [facility] Work Phone: Blood hemoglobin measurement (mass/volume)on 07-19-2021 Hemoglobin (Bld) [Mass/Vol] 9.7 g/dL 13.0-16.5 [facility] Work Phone: Blood lymphocytes/100 leukoc yteson 07-19-2021 Lymphocytes/100 WBC (Bld) 13.3 % 19-41 [facility] Work Phone: Blood monocytes/100 leukocyt eson 07-19-2021 Monocytes/100 WBC (Bld) 8.5 % 0-10 [facility] Work Phone: Blood platelet mean volumeon 07-19-2021 Platelet mean volume (Bld) [Entitic vol] 8.9 fL 6.2-12.0 [facility] Work Phone: Determination of erythrocyte mean corpuscular volume (MCV)on 07-19-2021 MCV (RBC) [Entitic vol] 94.6 fL 80-94 [facility] Work Phone: Hematocrit Auto (Bld) [Volum e fraction]on 07-19-2021 Hematocrit (Bld) [Volume fraction] 27.9 % 40-54 [facility] Work Phone: Laboratory - Chemistry and C hemistry - challengeon 07-19-2021 CO2 [Moles/Vol] 29.0 mmol/L 21.0-32.0 [facility] Work Phone: [phone] Lipase [Catalytic activity/Vol] 240 U/L 73-393 [facility] Work Phone: [phone] Urea nitrogen/Creatinine [Mass ratio] 21.4 mg/mg 10-20 [facility] Work Phone: [phone] Laboratory - Hematology and Cell countson 07-19-2021 Erythrocyte distribution width (RBC) [Entitic vol] 50.1 fL 35.1-43.9 [facility] Work Phone: [phone] Erythrocyte distribution width (RBC) [Ratio] 14.7 % 11.6-14.6 [facility] Work Phone: [phone] Immature granulocytes/100 WBC (Bld) 0.500 % 0.0-0.9 [facility] Work Phone: [phone] Comment on above: IG% - Immature Granu locytes (promyelocytes, myelocytes and metamyelocytes) > 1% indicates that a LEFT SHIFT is Present. MCH (RBC) [Entitic mass] 32.9 pg 27.0-32.0 [facility] Work Phone: [phone] Nucleated RBC/100 WBC (Bld) [Ratio] 0 % 0-5 [facility] Work Phone: [phone] MCHC Auto (RBC) [Mass/Vol]on 07-19-2021 MCHC (RBC) [Mass/Vol] 34.8 g/dL 32-[address] [facility] Work Phone: [phone] Panel Informationon 07-19 Estimated Creatinine Clearance Calc 52.51 ml/min [facility] Work Phone: [phone] Estimated GFR (MDRD) Amer 76 mL/min >60 [facility] Work Phone: [phone] Comment on above: GFR Calc Estimated GFR (MDRD) Non-Af Amer 63 mL/min >60 [facility] Work Phone: [phone] Comment on above: Non- GFR Calc Troponin I High Sensitivity 8 pg/mL 3.0-78.0 [facility] Work Phone: Comment on above: Please Note: New [place] t Units and Gender Specific Reference Ranges. For more information see Policy Stat Procedure [place] High Sensitivity Troponin (TNIH) and attachments. Platelets bldon 07-19-2021 Platelets (Bld) [#/Vol] 207 10*3/uL 150-450 [facility] Work Phone: Serum or plasma calcium eliseo urement (mass/volume)on 07-19-2021 Calcium [Mass/Vol] 9.6 mg/dL 8.5-10.1 [facility] Work Phone: Serum or plasma creatinine m easurement (mass/volume)on 07-19-2021 Creatinine [Mass/Vol] 1.17 mg/dL 0.70-1.[address] [facility] Work Phone: Comment on above: The validity of the calculated GFR & GFRAA in patients over 70 years has not been determined. Clinical correlation is essential. Serum or plasma urea nitroge n measurement (mass/volume)on 07-19-2021 Urea nitrogen [Mass/Vol] 25 mg/dL 7-18 [facility] Work Phone: Thin prep Papanicolaou smear with manual screeningon 07-19-2021 Thin prep Papanicolaou smear with manual screening 3 5-15 [facility] Work Phone: Basophil percentageon 2021 Bilirubin [Mass/Vol] 0.70 mg/dL 0.20-1.00 [facility] Work Phone: Comment on above: For patients on eltr ombopag therapy, use of Dimension [place] TBIL is not recommended. Cholesterol [Mass/Vol] 162 mg/dL <200 [facility] Work Phone: Comment on above: <200 mg/dL Desirable 200-240 mg/dL Borderline >240 mg/dL High Risk Protein [Mass/Vol] 7.3 g/dL 6.4-8.2 [facility] Work Phone: Triglyceride [Mass/Vol] 265 mg/dL [facility] Work Phone: Comment on above: The drugs N-Acetylcy steine and Metamizole may falsely depress this assay.Serum Triglycerides Reference Interval Normal <150 mg/dL Borderline high 150 - 199 mg/dL High 200 - 499 mg/dL Very High > or = 500 mg/dL Direct bilirubinon Bilirubin.direct [Mass/Vol] 0.18 mg/dL 0.00-0.30 [facility] Work Phone: [phone] Laboratory - Chemistry and C hemistry - challengeon 05-20-2021 ALP [Catalytic activity/Vol] 120 U/L 45-117 [facility] Work Phone: [phone] ALT [Catalytic activity/Vol] 16 U/L 16-61 [facility] Work Phone: [phone] Globulin (S) [Mass/Vol] 3.9 g/dL 2.2-4.2 [facility] Work Phone: [phone] Serum or plasma albumin eliseo urement (mass/volume)on 05-20-2021 Albumin [Mass/Vol] 3.4 g/dL 3.2-5.0 [facility] Work Phone: [phone] Serum or plasma cholesterol in HDL measurement (mass/volume)on 05-20-2021 Cholesterol in HDL [Mass/Vol] 43 mg/dL [facility] Work Phone: Comment on above: The drugs N-Acetylcy steine and Metamizole may falsely depress this assay. Reference Range HDL <40 mg/dL Low HDL Cholesterol HDL >or= 60 mg/dL High HDL Cholesterol Serum or plasma cholesterol in VLDL measurement (mass/volume)on 05-20-2021 Cholesterol in VLDL [Mass/Vol] 53 mg/dL 5-40 [facility] Work Phone: [phone] Serum or plasma low density lipoprotein (LDL) cholesterol measurement (mass/volume)on 05-20-2021 Cholesterol in LDL [Mass/Vol] 66 mg/dL 0-130 [facility] Work Phone: [phone] Thin prep Papanicolaou smear with manual screeningon 05-20-2021 Thin prep Papanicolaou smear with manual screening 19 U/L 15-37 [facility] Work Phone: SARS coronavirus RNA [Presen ce] in Unspecified specimen by ELVIRA with probe detectionon 04-22-2021 SARS-CoV RNA ELVIRA+probe Ql (Unsp spec) Not detected Not Detected [facility] Work Phone: Comment on above: This nucleic acid am plification test was developed and itsperformance characteristics determined by [facility]. Nucleic acid amplification tests include RT-PCR and TMA. This test has not been FDA cleared orapproved. This test has been authorized by FDA under anEmergency Use Authorization (EUA). This test is onlyauthorized for the duration of time the declaration thatcircumstances exist justifying the authorization of theemergency use of in vitro diagnostic tests for detection [id number] virus and/or diagnosis of COVID-19 infectionunder section 564(b)(1) of the Act, 21 U.S.C. 360bbb-3(b)(1), unless the authorization is terminated or revokedsooner.When diagnostic testing is negative, the possibility of afalse negative result should be considered in the contextof a patient's recent exposures and the presence ofclinical signs and symptoms consistent with COVID-19. Anindividual without symptoms of COVID-19 and who is notshedding SARS-CoV-2 virus would expect to have a negative(not detected) result in this assay. Basophil percentageon 2020 Basophil percentage 10-25 SEEN /hpf [facility] Work Phone: [phone] Bilirubin Test strip Ql (U)o n 04-19-2021 Bilirubin Ql (U) Negative Negative [facility] Work Phone: [phone] Calcium oxalate crystals det ection in urine sediment by light microscopyon 04-19-2021 Calcium oxalate crystals LM Ql (Urine sed) 1+ /hpf [facility] Work Phone: Culture, urineon 04-19-2021 Bacteria identified Cx Nom (U) Positive [facility] Work Phone: [phone] Ketones Test strip Ql (U)on 04-19-2021 Ketones Ql (U) 5 mg/dl Negative [facility] Work Phone: Mucus LM Ql (Urine sed)on Mucus Ql (Urine sed) 0 SEEN /hpf [facility] Work Phone: Nitrite Test strip Ql (U)on 04-19-2021 Nitrite Ql (U) Negative Negative [facility] Work Phone: Protein Test strip Ql (U)on 04-19-2021 Protein Ql (U) 15 mg/dl Negative [facility] Work Phone: Squamous epithelial cells de tection in urine sediment by light microscopyon 04-19-2021 Epithelial cells.squamous LM Ql (Urine sed) 0 SEEN /hpf [facility] Work Phone: Urine blood detectionon 04-01 RBC Ql (U) 10 /ul Negative [facility] Work Phone: RBC Ql (U) 0-5 SEEN /hpf [facility] Work Phone: Urine clarityon 04-19-2021 Clarity (U) Clear Clear [facility] Work Phone: Urine color determinationon 04-19-2021 Color (U) Yellow Yellow [facility] Work Phone: Urine glucose detectionon Glucose Ql (U) Normal mg/dl Normal [facility] Work Phone: Urine leukocyte esterase det ection by dipstickon 04-19-2021 Leukocyte esterase Test strip Ql (U) 25 /ul Negative [facility] Work Phone: Urine pHon 04-19-2021 pH (U) 5.0 [pH] [facility] Work Phone: Urine sediment bacteria coun t by microscopy (number/high power field)on 04-19-2021 Bacteria LM.HPF (Urine sed) [#/Area] RARE /hpf None Seen [facility] Work Phone: Urine specific gravity measu rementon 04-19-2021 Specific gravity (U) [Rel density] 1.025 [facility] Work Phone: Urobilinogen Auto test strip Ql (U)on 04-19-2021 Urobilinogen Ql (U) 1 mg/dl Normal [facility] Work Phone: Absolute lymphocyte counton 04-17-2021 Lymphocytes Auto (Unsp spec) [#/Vol] 1.52 10*3/uL 0.83-4.51 [facility] Work Phone: Basophil percentageon 2020 Eosinophils/100 WBC (Bld) 0.8 % 0-5 [facility] Work Phone: Neutrophils (Bld) [#/Vol] 4.3 10*3/uL 2.0-7.7 [facility] Work Phone: WBC (Bld) [#/Vol] 6.6 10*3/uL 4.4-11.0 [facility] Work Phone: Chloride [Moles/Vol] 103 mmol/L 98-107 [facility] Work Phone: [phone] Glucose [Mass/Vol] 100 mg/dL 74-106 [facility] Work Phone: Comment on above: Fasting Glucose resu lt from 100 to 125 mg/dL suggests IMPAIRED HOMEOSTASIS per A.D.A. criteria.Please note revised GLUCOSE reference range effective 2017. Potassium [Moles/Vol] 4.3 mmol/L 3.5-5.[address] [facility] Work Phone: Sodium [Moles/Vol] 138 mmol/L 136-145 [facility] Work Phone: [phone] Blood erythrocytes count (nu mber/volume)on 04-17-2021 RBC (Bld) [#/Vol] 3.98 10*6/uL 4.6-6.2 [facility] Work Phone: Blood hemoglobin measurement (mass/volume)on 04-17-2021 Hemoglobin (Bld) [Mass/Vol] 12.2 g/dL 13.0-16.5 [facility] Work Phone: Blood lymphocytes/100 leukoc yteson 04-17-2021 Lymphocytes/100 WBC (Bld) 23.0 % 19-41 [facility] Work Phone: Blood monocytes/100 leukocyt eson 04-17-2021 Monocytes/100 WBC (Bld) 10.9 % 0-10 [facility] Work Phone: Blood platelet mean volumeon 04-17-2021 Platelet mean volume (Bld) [Entitic vol] 8.7 fL 6.2-12.0 [facility] Work Phone: Determination of erythrocyte mean corpuscular volume (MCV)on 04-17-2021 MCV (RBC) [Entitic vol] 96.7 fL 80-94 [facility] Work Phone: Hematocrit Auto (Bld) [Volum e fraction]on 04-17-2021 Hematocrit (Bld) [Volume fraction] 38.5 % 40-54 [facility] Work Phone: Laboratory - Chemistry and C hemistry - challengeon 04-17-2021 CO2 [Moles/Vol] 27.0 mmol/L 21.0-32.0 [facility] Work Phone: Urea nitrogen/Creatinine [Mass ratio] 12.6 mg/mg 10-20 [facility] Work Phone: Laboratory - Hematology and Cell countson 04-17-2021 Basophils/100 WBC (Unsp spec) 0.5 % 0-1 [facility] Work Phone: Erythrocyte distribution width (RBC) [Entitic vol] 52.7 fL 35.1-43.9 [facility] Work Phone: Erythrocyte distribution width (RBC) [Ratio] 14.8 % 11.6-14.6 [facility] Work Phone: Immature granulocytes/100 WBC (Bld) 0.300 % 0.0-0.9 [facility] Work Phone: Comment on above: IG% - Immature Granu locytes (promyelocytes, myelocytes and metamyelocytes) > 1% indicates that a LEFT SHIFT is Present. MCH (RBC) [Entitic mass] 30.7 pg 27.0-32.0 [facility] Work Phone: Neutrophils/100 WBC (Bld) 64.5 % 47-70 [facility] Work Phone: Nucleated RBC/100 WBC (Bld) [Ratio] 0 % 0-5 [facility] Work Phone: MCHC Auto (RBC) [Mass/Vol]on 04-17-2021 MCHC (RBC) [Mass/Vol] 31.7 g/dL 32-[address] [facility] Work Phone: No Panel Informationon 04-17 Estimated Creatinine Clearance Calc 55.35 ml/min [facility] Work Phone: Estimated GFR (MDRD) Amer 81 mL/min >60 [facility] Work Phone: Comment on above: GFR Calc Estimated GFR (MDRD) Non-Af Amer 67 mL/min >60 [facility] Work Phone: Comment on above: Non- GFR Calc Platelets bldon 04-17-2021 Platelets (Bld) [#/Vol] 295 10*3/uL 150-450 [facility] Work Phone: Serum or plasma calcium eliseo urement (mass/volume)on 04-17-2021 Calcium [Mass/Vol] 9.8 mg/dL 8.5-10.1 [facility] Work Phone: Serum or plasma creatinine m easurement (mass/volume)on 04-17-2021 Creatinine [Mass/Vol] 1.11 mg/dL 0.70-1.[address] [facility] Work Phone: Comment on above: The validity of the calculated GFR & GFRAA in patients over 70 years has not been determined. Clinical correlation is essential. Serum or plasma urea nitroge n measurement (mass/volume)on 04-17-2021 Urea nitrogen [Mass/Vol] 14 mg/dL 11-15 [facility] Work Phone: Thin prep Papanicolaou smear with manual screeningon 04-17-2021 Thin prep Papanicolaou smear with manual screening 8 5-15 [facility] Work Phone: [phone] Absolute lymphocyte counton 03-26-2021 Lymphocytes Auto (Unsp spec) [#/Vol] 1.45 10*3/uL 0.83-4.51 [facility] Work Phone: Basophil percentageon 2020 Chloride [Moles/Vol] 97 mmol/L 98-107 [facility] Work Phone: Glucose [Mass/Vol] 156 mg/dL 74-106 [facility] Work Phone: Comment on above: Fasting Glucose resu lt greater than or equal to 126 mg/dL suggests DIABETES MELLITUS per A.D.A. criteria.Please note revised GLUCOSE reference range effective 2017. Potassium [Moles/Vol] 4.6 mmol/L 3.5-5.[address] [facility] Work Phone: Sodium [Moles/Vol] 131 mmol/L 136-145 [facility] Work Phone: Eosinophils/100 WBC (Bld) 0.4 % 0-5 [facility] Work Phone: Neutrophils (Bld) [#/Vol] 10.1 10*3/uL 2.0-7.7 [facility] Work Phone: WBC (Bld) [#/Vol] 13.5 10*3/uL 4.4-11.0 [facility] [place] Work Phone: Blood erythrocytes count (nu mber/volume)on 03-26-2021 RBC (Bld) [#/Vol] 2.94 10*6/uL 4.6-6.2 [facility] [place] Work Phone: Blood hemoglobin measurement (mass/volume)on 03-26-2021 Hemoglobin (Bld) [Mass/Vol] 9.4 g/dL 13.0-16.5 [facility] Work Phone: Blood lymphocytes/100 leukoc yteson 03-26-2021 Lymphocytes/100 WBC (Bld) 10.7 % 19-41 [facility] Work Phone: Blood manual differential co mment interpretation (narrative result)on 03-26-2021 Manual differential comment Camilo (Bld) [Interp] SCANNED [facility] Work Phone: Blood monocytes/100 leukocyt eson 03-26-2021 Monocytes/100 WBC (Bld) 13.3 % 0-10 [facility] Work Phone: Blood platelet mean volumeon 03-26-2021 Platelet mean volume (Bld) [Entitic vol] 9.0 fL 6.2-12.0 [facility] Work Phone: Determination of erythrocyte mean corpuscular volume (MCV)on 03-26-2021 MCV (RBC) [Entitic vol] 91.2 fL 80-94 [facility] Work Phone: Hematocrit Auto (Bld) [Volum e fraction]on 03-26-2021 Hematocrit (Bld) [Volume fraction] 26.8 % 40-54 [facility] Work Phone: Laboratory - Chemistry and C hemistry - challengeon 03-26-2021 CO2 [Moles/Vol] 24.0 mmol/L 21.0-32.0 [facility] Work Phone: Urea nitrogen/Creatinine [Mass ratio] 19.4 mg/mg 10-20 [facility] Work Phone: Laboratory - Hematology and Cell countson 03-26-2021 Basophils/100 WBC (Unsp spec) 0.1 % 0-1 [facility] Work Phone: Erythrocyte distribution width (RBC) [Entitic vol] 45.6 fL 35.1-43.9 [facility] Work Phone: [phone] Erythrocyte distribution width (RBC) [Ratio] 13.8 % 11.6-14.6 [facility] Work Phone: Immature granulocytes/100 WBC (Bld) 0.700 % 0.0-0.9 [facility] Work Phone: Comment on above: IG% - Immature Granu locytes (promyelocytes, myelocytes and metamyelocytes) > 1% indicates that a LEFT SHIFT is Present. MCH (RBC) [Entitic mass] 32.0 pg 27.0-32.0 [facility] Work Phone: Neutrophils/100 WBC (Bld) 74.8 % 47-70 [facility] Work Phone: Nucleated RBC/100 WBC (Bld) [Ratio] 0 % 0-5 [facility] Work Phone: MCHC Auto (RBC) [Mass/Vol]on 03-26-2021 MCHC (RBC) [Mass/Vol] 35.1 g/dL 32-[address] [facility] Work Phone: No Panel Informationon 03-26 Estimated Creatinine Clearance Calc 45.85 ml/min [facility] Work Phone: Estimated GFR (MDRD) Amer 65 mL/min >60 [facility] Work Phone: Comment on above: GFR Calc Estimated GFR (MDRD) Non-Af Amer 54 mL/min >60 [facility] Work Phone: Comment on above: Non- GFR Calc Platelets bldon 03-26-2021 Platelets (Bld) [#/Vol] 153 10*3/uL 150-450 [facility] Work Phone: [phone] Review by pathologiston 03-02 Pathologist review Camilo (Unsp spec) [Interp] Reviewed [facility] Work Phone: Comment on above: Previous reported re sult: Marisel zabala Edited by: REYNALDO on 03/26/21:1537Neutrophilic leukocytosis.Normocytic anemia.Clinical correlation necessary.Pranay Rojas M.D. 03/26/21 AMENDED REPORT 03/26/21 1537 PATH REV previously reported as: Marisel zabala Serum or plasma calcium eliseo urement (mass/volume)on 03-26-2021 Calcium [Mass/Vol] 8.7 mg/dL 8.5-10.1 [facility] Work Phone: Serum or plasma cortisol arie surement (mass/volume)on 03-26-2021 Cortisol [Mass/Vol] 25.80 ug/dL 3.44-22.45 [facility] Work Phone: Comment on above: Adult (AM) 5.27 - 22 .45 ug/dL Adult (PM) 3.44 - 16.76 ug/dLPlease note revised CORTISOL reference range effective 2019. Serum or plasma creatinine m easurement (mass/volume)on 03-26-2021 Creatinine [Mass/Vol] 1.34 mg/dL 0.70-1.[address] [facility] Work Phone: Comment on above: The validity of the calculated GFR & GFRAA in patients over 70 years has not been determined. Clinical correlation is essential. Serum or plasma urea nitroge n measurement (mass/volume)on 03-26-2021 Urea nitrogen [Mass/Vol] 26 mg/dL 7-18 [facility] Work Phone: Thin prep Papanicolaou smear with manual screeningon 03-26-2021 Thin prep Papanicolaou smear with manual screening 10 5-15 [facility] Work Phone: Thin prep Papanicolaou smear with manual screening 279 mOsm/KG 280-301 [facility] Work Phone: Glucose Glucometer (BldC) [M ass/Vol]on 03-25-2021 Glucose [Mass/Vol] 121 mg/dL 70-110 [facility] Work Phone: Comment on above: MANAGEMENT OF PATIEN T CARE PER NURSING PROTOCOL Laboratory - Chemistry and C hemistry - challengeon 03-25-2021 Sodium (U) [Moles/Vol] 9 mmol/L Not Establ. [facility] Work Phone: No Panel Informationon 03-25 Thyroid Stimulating Hormone (TSH) 0.95 uIU/mL 0.358-3.74 [facility] Work Phone: Urine osmolality measurement on 03-25-2021 Osmolality (U) [Osmolality] 192 mOsm/KG [facility] Work Phone: Comment on above: Normal Urine Referen ce Ranges Random: 50 - 1200 mOsm/kg H20 depending on fluid intake Random: >850 mOsm/kg after 12 hour fluid restriction 24 hour: ~300 - 900 mOsm/kg H2O Blood platelet adequacy dete ction by light microscopyon 03-24-2021 Platelets LM Ql (Bld) ADEQUATE ADEQ [facility] Work Phone: [phone] Hypochromatic red blood cell detectionon 03-24-2021 Hypochromia Ql (Bld) RARE [facility] Work Phone: No Panel Informationon 03-23 Vitamin D 25-Hydroxy 38.4 ng/mL [facility] Work Phone: Comment on above: Vitamin D 25(OH) Sta tus Range Deficiency <20 ng/mL (50nmol/L) Insufficiency 20 - 30 ng/mL (50 - 75 nmol/L) Sufficiency 30 - 100 ng/mL (75 - 250 nmol/L) Toxicity >100 ng/mL (>250 nmol/L) Basophil percentageon 2020 Bilirubin [Mass/Vol] 0.60 mg/dL 0.20-1.00 [facility] Work Phone: Comment on above: For patients on eltr ombopag therapy, use of Dimension [place] TBIL is not recommended. Protein [Mass/Vol] 6.9 g/dL 6.4-8.2 [facility] Work Phone: INR in Blood by Coagulation assayon 03-22-2021 INR Coag (Bld) [Relative time] 1.0 {INR} [facility] Work Phone: Laboratory - Chemistry and C hemistry - challengeon 03-22-2021 ALP [Catalytic activity/Vol] 82 U/L 45-117 [facility] Work Phone: ALT [Catalytic activity/Vol] 21 U/L 16-61 [facility] Work Phone: Globulin (S) [Mass/Vol] 3.8 g/dL 2.2-4.2 [facility] Work Phone: Laboratory - Coagulationon 1 05-22-2020 aPTT Coag (Bld) [Time] 32.3 s 24.1-36.2 [facility] Work Phone: PT Coag (PPP) [Time] 12.7 s 11.7-14.9 [facility] Work Phone: No Panel Informationon 03-22 SARS-CoV-2 Antigen (Rapid) [facility] Work Phone: Serum or plasma albumin eliseo urement (mass/volume)on 03-22-2021 Albumin [Mass/Vol] 3.1 g/dL 3.2-5.0 [facility] Work Phone: Serum or plasma albumin/glob ulin mass ratioon 03-22-2021 Albumin/Globulin [Mass ratio] 0.8 {ratio} 0.9-2.4 [facility] Work Phone: Thin prep Papanicolaou smear with manual screeningon 03-22-2021 Thin prep Papanicolaou smear with manual screening 22 U/L 15-37 [facility] Work Phone: [facility] ([id number]) 1935 M Date Time Provider Department 01/22/21 ALEXA SCHAEFER During your visit today, we recorded the following information about you: Alexa Schaefer APRN.CASE FINISHER 01/22/2021 9:11 AM Signed Post-op carotid US looks good, with patent endarterectomy sites. Recommend annual f/up with carotid US. Alexa Schaefer APRN.REHAN IMPRESSION ? RIGHT SIDE Internal carotid artery: 20-39% stenosis. LEFT SIDE Internal carotid artery: 20-39% stenosis. ? Alexa Schaefer APRN.REHAN 02/04/2021 10:16 AM Signed I called and spoke with Mrs. Muller. She is pleased to hear the good report and will relay information to pt. Plan to repeat in 1 year with testing @[place]. Alexa Schaefer APRN.REHAN Allergies As of Date: 01/22/2021 Noted Allergy Reaction PENICILLINS 05/17/2005 2 - Rash ASPIRIN 05/17/2005 8 - GI Upset Comments: GI upset Can take coated low dose asa Date Reviewed: 10/30/2020 Reviewed by: Makayla Cox LPN - Fully Assessed Reason for Visit: Results [95] Primary Visit Diagnosis:Internal carotid artery stenosis, bilateral [I65.23] Other Visit Diagnosis:History of bilateral carotid endarterectomy [Z98.890] Order(s): CAROTID ARTERIES [facility] [[id number]] Order #: [id number] FUTURE Prescriptions as of 02/04/2021 - vitamin b complex capsule Take 1 capsule by mouth once daily. - multivitamin tablet Take 1 tablet by mouth once daily. - acetaminophen/diphenhy dramine (TYLENOL PM ORAL) Take 2 tablets by mouth daily at bedtime. - aspirin 81 mg chewable tablet Take 1 tablet by mouth once daily. - atorvastatin (LIPITOR) 40 mg tablet Take 40 mg by mouth daily at bedtime. - metoprolol succinate ER (TOPROL XL) 25 mg 24 hr tablet Take 25 mg by mouth once daily. - escitalopram oxalate (LEXAPRO) 5 mg tablet Take 5 mg by mouth once daily. - nitroglycerin sublingual (NITROQUICK) 0.[address] 1 tablet under the tongue if needed every 5 TO 15 MINUTES for chest pain for 3 doses - lansoprazole(PREVACID 30 MG CAP) Take one(1) capsule daily., as needed Problem List As Of Date 01/22/2021 Noted Resolved DISC DISPLACEMENT NOS [[id number]] 06/12/2005 CORONARY ATHEROSCLER UNSPEC VESSEL [I25.10] 06/12/2005 HLD (hyperlipidemia) [E78.5] 06/12/2005 Depression [F32.A] 06/12/2005 ESOPHAGEAL REFLUX [K21.9] 06/12/2005 RT BUNDLE BRANCH BLOCK [I45.10] 06/12/2005 CARDIOMEGALY [I51.7] 06/12/2005 HYPERPOTASSEMIA [E87.5] 06/12/2005 HYPERCALCEMIA [E83.52] 06/12/2005 SPINAL STENOSIS-LUMBAR [M48.061] 06/12/2005 LUMBAR DISC DISPLACEMENT [M51.26] 06/12/2005 LUMBOSACRAL SPONDYLOSIS [M47.817] 06/12/2005 SKIN CARCINOMA BACK [173.5] 12/26/2007 Multiple Thyroid Nodules [E04.2] 09/07/2009 Cholelithiasis and Cholecystitis without Obstru*12/14/2009 Stroke-like symptoms [R29.90] 02/28/2020 03/03/2020 Left carotid artery stenosis [I65.22] 02/28/2020 HTN (hypertension) [I10] 02/28/2020 COPD (chronic obstructive pulmonary disease) (H*02/28/2020 Numbness and tingling in right hand [R20.0, R20*02/28/2020 03/03/2020 Symptomatic carotid artery stenosis [I65.29] 02/28/2020 03/03/2020 COVID-19 vaccine administered [Z23] 06/18/2020 Carotid stenosis [I65.29] 07/22/2020 Encounter Status:[facility] ([facility]STI[facility]) RANCHO MULLER ([id number]) 1935 M Date Time Provider Department 10/30/20 10:00 AM ALEXA SCHAEFER During your visit today, we recorded the following information about you: Pulse Blood pressure Weight Height 64/minute 124/64 97.5 kg 1.829 m Alexa Schaefer APRN.REHAN 10/30/2020 1:11 PM Signed Rancho Muller 85 year old male S/P Left carotid endarterectomy; Right carotid endarterectomy PROCEDURE: L CEA AND R CEA by Dr. Mares DATE: 07/22/20; 09/30/20 SUBJECTIVE: Rancho Muller comes to the office today, accompanied by his , for post-op evaluation following his right carotid surgery. Pt reports that he is doing well, though admits that this side is a little more painful/sore than the left side was. There is also some more notable jaw line numbness and even a slight mis-alignment of his jaw, as evidence by his top AND bottom dentures not lining up like the used to, making it a little difficult for him to chew. Swallow is fine and voice is unchanged. EXAM: Neurological Exam: Normal; Awake, alert, oriented, pleasant, and appropriate; Strength and sensation grossly intact; Smile symmetric, tongue midline; No overt or obvious jaw misalignment noted Right Neck Incision: Clean, dry, well approximated, and well healed; No edema, erythema, ecchymosis, or drainage IMPRESSION: Stable post op; OK to gradually resume normal daily activities as tolerated!; Numbness in right jaw and neck have been improving slowly since surgery, and we discussed that this can take quite a long time to resolve; Will proceed with post-op carotid US in a couple of months. PLAN: Will call with results and recommendations follow-up post-op US. Encouraged to call with any questions, problems, concerns, or changes. The patient is currently taking a statin: Yes The patient is currently taking aspirin: Yes Alexa Schaefer APRN.CASE FINISHER Referring Provider: MARIELA KING [[id number]] Allergies As of Date: 10/30/2020 Noted Allergy Reaction PENICILLINS 05/17/2005 2 - Rash ASPIRIN 05/17/2005 8 - GI Upset Comments: GI upset Can take coated low dose asa Date Reviewed: 10/30/2020 Reviewed by: Makayla Cox LPN - Fully Assessed Reason for Visit: Post Op [174] Cmt: R CEA 09/30/20 Primary Visit Diagnosis:Internal carotid artery stenosis, bilateral [I65.23] Other Visit Diagnoses:S/P carotid endarterectomy [Z98.890] History of left-sided carotid endarterectomy [Z98.890] Order(s): CAROTID [facility]ERIES [facility] [[id number]] Order #: [id number] FUTURE Prescriptions as of 10/30/2020 - vitamin b complex capsule Take 1 capsule by mouth once daily. - multivitamin tablet Take 1 tablet by mouth once daily. - acetaminophen/diphenhy dramine (TYLENOL PM ORAL) Take 2 tablets by mouth daily at bedtime. - aspirin 81 mg chewable tablet Take 1 tablet by mouth once daily. - atorvastatin (LIPITOR) 40 mg tablet Take 40 mg by mouth daily at bedtime. - metoprolol succinate ER (TOPROL XL) 25 mg 24 hr tablet Take 25 mg by mouth once daily. - escitalopram oxalate (LEXAPRO) 5 mg tablet Take 5 mg by mouth once daily. - nitroglycerin sublingual (NITROQUICK) 0.[address] 1 tablet under the tongue if needed every 5 TO 15 MINUTES for chest pain for 3 doses - lansoprazole(PREVACID 30 MG CAP) Take one(1) capsule daily., as needed Problem List As Of Date 10/30/2020 Noted Resolved DISC DISPLACEMENT NOS [[id number]] 06/12/2005 CORONARY ATHEROSCLER UNSPEC VESSEL [I25.10] 06/12/2005 HLD (hyperlipidemia) [E78.5] 06/12/2005 Depression [F32.9] 06/12/2005 ESOPHAGEAL REFLUX [K21.9] 06/12/2005 RT BUNDLE BRANCH BLOCK [I45.10] 06/12/2005 CARDIOMEGALY [I51.7] 06/12/2005 HYPERPOTASSEMIA [E87.5] 06/12/2005 HYPERCALCEMIA [E83.52] 06/12/2005 SPINAL STENOSIS-LUMBAR [M48.061] 06/12/2005 LUMBAR DISC DISPLACEMENT [M51.26] 06/12/2005 LUMBOSACRAL SPONDYLOSIS [M47.817] 06/12/2005 SKIN CARCINOMA BACK [173.5] 12/26/2007 Multiple Thyroid Nodules [E04.2] 09/07/2009 Cholelithiasis and Cholecystitis without Obstru*12/14/2009 Stroke-like symptoms [R29.90] 02/28/2020 03/03/2020 Left carotid artery stenosis [I65.22] 02/28/2020 HTN (hypertension) [I10] 02/28/2020 COPD (chronic obstructive pulmonary disease) (H*02/28/2020 Numbness and tingling in right hand [R20.0, R20*02/28/2020 03/03/2020 Symptomatic carotid artery stenosis [I65.29] 02/28/2020 03/03/2020 COVID-19 vaccine administered [Z23] 06/18/2020 Carotid stenosis [I65.29] 07/22/2020 Letter Text Encounter Status:Closed by ALEXA SCHAEFER on 10/30/20 [facility] 10-30-2020 [place] RANCHO MULLER ([id number]) 1935 M Date Time Provider Department 10/30/20 LILIYA MARES During your visit today, we recorded the following information about you: Claudia Arellano 10/30/2020 10:27 AM Signed Left detailed message regarding future appt: Carotid ultrasound 01/12/21 11am j@ [facility] [place] [address] Itinerary mailed to pt. Allergies As of Date: 10/30/2020 Noted Allergy Reaction PENICILLINS 05/17/2005 2 - Rash ASPIRIN 05/17/2005 8 - GI Upset Comments: GI upset Can take coated low dose asa Date Reviewed: 10/30/2020 Reviewed by: Makayla Cox LPN - Fully Assessed Reason for Visit: LMTCB [1226] Future Appointment [256] Prescriptions as of 10/30/2020 - vitamin b complex capsule Take 1 capsule by mouth once daily. - multivitamin tablet Take 1 tablet by mouth once daily. - acetaminophen/diphenhy dramine (TYLENOL PM ORAL) Take 2 tablets by mouth daily at bedtime. - aspirin 81 mg chewable tablet Take 1 tablet by mouth once daily. - atorvastatin (LIPITOR) 40 mg tablet Take 40 mg by mouth daily at bedtime. - metoprolol succinate ER (TOPROL XL) 25 mg 24 hr tablet Take 25 mg by mouth once daily. - escitalopram oxalate (LEXAPRO) 5 mg tablet Take 5 mg by mouth once daily. - nitroglycerin sublingual (NITROQUICK) 0.[address] 1 tablet under the tongue if needed every 5 TO 15 MINUTES for chest pain for 3 doses - lansoprazole(PREVACID 30 MG CAP) Take one(1) capsule daily., as needed Problem List As Of Date 10/30/2020 Noted Resolved DISC DISPLACEMENT NOS [[id number]] 06/12/2005 CORONARY ATHEROSCLER UNSPEC VESSEL [I25.10] 06/12/2005 HLD (hyperlipidemia) [E78.5] 06/12/2005 Depression [F32.9] 06/12/2005 ESOPHAGEAL REFLUX [K21.9] 06/12/2005 RT BUNDLE BRANCH BLOCK [I45.10] 06/12/2005 CARDIOMEGALY [I51.7] 06/12/2005 HYPERPOTASSEMIA [E87.5] 06/12/2005 HYPERCALCEMIA [E83.52] 06/12/2005 SPINAL STENOSIS-LUMBAR [M48.061] 06/12/2005 LUMBAR DISC DISPLACEMENT [M51.26] 06/12/2005 LUMBOSACRAL SPONDYLOSIS [M47.817] 06/12/2005 SKIN CARCINOMA BACK [173.5] 12/26/2007 Multiple Thyroid Nodules [E04.2] 09/07/2009 Cholelithiasis and Cholecystitis without Obstru*12/14/2009 Stroke-like symptoms [R29.90] 02/28/2020 03/03/2020 Left carotid artery stenosis [I65.22] 02/28/2020 HTN (hypertension) [I10] 02/28/2020 COPD (chronic obstructive pulmonary disease) (H*02/28/2020 Numbness and tingling in right hand [R20.0, R20*02/28/2020 03/03/2020 Symptomatic carotid artery stenosis [I65.29] 02/28/2020 03/03/2020 COVID-19 vaccine administered [Z23] 06/18/2020 Carotid stenosis [I65.29] 07/22/2020 Encounter Status:Closed by CLAUDIA ARELLANO on 10/30/20 Normal [facility] ANES POSTPROC EVALon 021 ANES POSTPROC EVAL HNO ID: [id number] Author: Rusty Gomez MD Service: Anesthesiology Author Type: Physician Type: Anesthesia Postprocedure Evaluation Filed: 10/01/2020 7:55 AM Note Text: POST ANESTHESIA EVALUATION NOTE : 1935 Procedure Summary Date: 09/30/20 Room / Location: MD OR [address] [place] [address] OR Anesthesia Start: 914 Anesthesia Stop: 1209 Procedure: ENDARTERECTOMY CAROTID ADULT (Right Neck) Diagnosis: Bilateral carotid artery stenosis Surgeons: Liliya Mares MD Responsible Provider: Rusty Gomez MD Anesthesia Type: general ASA Status: 3 Anesthesia Type: general Last vitals Vitals Value Taken Time BP 128/66 10/01/20 0700 Temp 36.9 ?C (98.4 ?F) 10/01/20 0700 Pulse 69 10/01/20 0754 Resp 17 10/01/20 0754 SpO2 97 % 10/01/20 0754 Vitals shown include unvalidated device data. Post Anesthesia Patient Status Patient Evaluation: ICU. Anticipated Disposition: ICU planned admission. Neurological Status: aware and responsive. Pulmonary Status: breathing comfortably on supplemental oxygen Airway Control: returned to baseline unsupported. Cardiovascular Status: stable. Pain Management: clinically adequate Postoperative Hydration: acceptable. Intraoperative Events: no significant anesthesia events Post Operative Nausea/Vomiting Status: no significant post operative nausea or vomiting Anesthetic Observations: Recommendation: further care per PACU/ICU/floor team. Other Remarks: Awake and following commands. No complications documented. SIGNATURE: Rusty Gomez MD PATIENT NAME: Rancho Muller DATE: October 01, 2020 TIME: 7:54 AM CSN: [id number] Normal [facility] Basic metabolic 2000 panelon 10-01-2020 Anion gap [Moles/Vol] 9 mmol/L Normal 9-18 [facility] Comment on above: Order Comment: Speci men Type: BLOOD SPECIMEN Performed By: #### 2 4321-2, , 2776-05 #### [facility] CLIA [id number] [address] [place] [address] Calcium [Mass/Vol] 8.9 mg/dL Normal 8.5-10.2 [facility] Comment on above: Order Comment: Speci men Type: BLOOD SPECIMEN Performed By: #### 2 4321-2, , 2776-05 #### [facility] CLIA [id number] [address] [place] [address] Chloride [Moles/Vol] 101 mmol/L Normal 97-105 [facility] Comment on above: Order Comment: Speci men Type: BLOOD SPECIMEN Performed By: #### 2 4321-2, , 2776-05 #### [facility] CLIA [id number] [address] [place] [address] CO2 [Moles/Vol] 24 mmol/L Normal 22-30 [facility] Comment on above: Order Comment: Speci men Type: BLOOD SPECIMEN Performed By: #### 2 4321-2, , 2776-05 #### [facility] CLIA [id number] [address] [place] [address] Creatinine [Mass/Vol] 0.98 mg/dL Normal 0.73-1.22 [facility] Comment on above: Order Comment: Speci men Type: BLOOD SPECIMEN Performed By: #### 2 4321-2, , 2776-05 #### [facility] CLIA [id number] [address] [place] [address] GFR/1.73 sq M.predicted MDRD (S/P/Bld) [Vol rate/Area] mL/min/{1.73_m2} Normal [facility] Comment on above: Order Comment: Speci men Type: BLOOD SPECIMEN Result Comment: >60 eGFR (Estimated GFR) Units of measure: mL/min/1.73 meters squared eGFR is derived from the reexpressed MDRD Study equation using the following parameters: serum creatinine, age, gender and race. The creatinine assay has been calibrated to be traceable to IDMS. An eGFR <60 mL/min/1.73m2 for >3 months is consistent with chronic kidney disease. Refer to KDOQI guidelines for clinical interpretation. In patients with unstable renal function, e.g. those with acute kidney injury, the eGFR may not accurately reflect actual GFR. Performed By: #### 2 4321-2, , 2776-05 #### [facility] CLIA [id number] [address] [place] [address] Glucose [Mass/Vol] 140 mg/dL High 74-99 [facility] Comment on above: Order Comment: Speci men Type: BLOOD SPECIMEN Result Comment: The [place] Diabetes Association (ADA) provides guidance for cutoff values for fasting glucose and random glucose. The ADA defines fasting as no caloric intake for at least 8 hours. Fasting plasma glucose results between 100 to 125 mg/dL indicate increased risk for diabetes (prediabetes). Fasting plasma glucose results greater than or equal to 126 mg/dL meet the criteria for diagnosis of diabetes. In the absence of unequivocal hyperglycemia, results should be confirmed by repeat testing. In a patient with classic symptoms of hyperglycemia or hyperglycemic crisis, random plasma glucose results greater than or equal to 200 mg/dL meet the criteria for diagnosis of diabetes. Reference: Standards of Medical Care in Diabetes 2016, [place] Diabetes Association. Diabetes Care. 2016.39(Suppl 1). Performed By: #### 2 1-2, , 2776-05 #### [facility] CLIA [id number] [address] [place] [address] Potassium [Moles/Vol] 4.8 mmol/L Normal 3.7-5.1 [facility] Comment on above: Order Comment: Speci men Type: BLOOD SPECIMEN Performed By: #### 2 1-2, , 2776-05 #### [facility] CLIA [id number] [address] [place] [address] Sodium [Moles/Vol] 134 mmol/L Low 136-144 [facility] Comment on above: Order Comment: Speci men Type: BLOOD SPECIMEN Performed By: #### 2 1-2, , 2776-05 #### [facility] CLIA [id number] [address] [place] [address] Urea nitrogen [Mass/Vol] 15 mg/dL Normal 9-24 [facility] Comment on above: Order Comment: Speci men Type: BLOOD SPECIMEN Performed By: #### 2 4321-2, , 2776-05 #### [facility] CLIA [id number] [address] [place] [address] CBC panel Auto (Bld)on 10-01 Erythrocyte distribution width (RBC) [Ratio] 13.6 % Normal 11.5-15.0 [facility] Comment on above: Order Comment: Speci men Type: BLOOD SPECIMEN Performed By: #### 2 4320-2, , 2776-05 #### [facility] CLIA [id number] [address] [place] [address] Hematocrit (Bld) [Volume fraction] 37.5 % Low 39.0-51.0 [facility] Comment on above: Order Comment: Speci men Type: BLOOD SPECIMEN Performed By: #### 2 4320-2, , 2776-05 #### [place] [facility] CLIA [id number] [address] [place] [address] Hemoglobin (Bld) [Mass/Vol] 12.6 g/dL Low 13.0-17.0 [facility] Comment on above: Order Comment: Speci men Type: BLOOD SPECIMEN Performed By: #### 2 1-2, , 2776-05 #### [facility] CLIA [id number] [address] [place] [address] MCH (RBC) [Entitic mass] 31.0 pg Normal 26.0-34.0 [facility] Comment on above: Order Comment: Speci men Type: BLOOD SPECIMEN Performed By: #### 2 1-2, , 2776-05 #### [facility] CLIA [id number] [address] [place] [address] MCHC (RBC) [Mass/Vol] 33.6 g/dL Normal 30.5-36.0 [facility] Comment on above: Order Comment: Speci men Type: BLOOD SPECIMEN Performed By: #### 2 4321-2, , 2776-05 #### [facility] CLIA [id number] [address] [place] [address] MCV (RBC) [Entitic vol] 92.1 fL Normal 80.0-100.0 [facility] Comment on above: Order Comment: Speci men Type: BLOOD SPECIMEN Performed By: #### 2 4321-2, , 2776-05 #### [facility] CLIA [id number] [address] [place] [address] Nucleated RBC (Bld) [#/Vol] 10*3/uL Normal <0.01 [facility] Comment on above: Order Comment: Speci men Type: BLOOD SPECIMEN Performed By: #### 2 4321-2, , 2776-05 #### [facility] CLIA [id number] [address] [place] [address] Platelet mean volume (Bld) [Entitic vol] 9.2 fL Normal 9.0-12.7 [facility] Comment on above: Order Comment: Speci men Type: BLOOD SPECIMEN Performed By: #### 2 1-2, , 2776-05 #### [facility] CLIA [id number] [address] [place] [address] Platelets (Bld) [#/Vol] 193 10*3/uL Normal 150-400 [facility] Comment on above: Order Comment: Speci men Type: BLOOD SPECIMEN Performed By: #### 2 4321-2, , 2776-05 #### [facility] CLIA [id number] [address] [place] [address] RBC (Bld) [#/Vol] 4.07 10*6/uL Low 4.20-6.00 [facility] Comment on above: Order Comment: Speci men Type: BLOOD SPECIMEN Performed By: #### 2 4321-2, , 2776-05 #### [facility] CLIA [id number] [address] [place] [address] WBC (Bld) [#/Vol] 17.53 10*3/uL High 3.70-11.00 [facility] Comment on above: Order Comment: Speci men Type: BLOOD SPECIMEN Performed By: #### 2 4321-2, 87263-6, 2777-1 #### [facility] CLIA [id number] [address] [place] [id number] CNDSon 10-01-2020 CNDS HNO ID: [id number] Author: Eber Allison DO Service: General Surgery Author Type: Resident Type: Discharge Summary Filed: 10/01/2020 9:24 AM Note Text: Attestation signed by Liliya Mares MD at 10/01/2020 3:15 PM Attending Note I personally saw and examined the patient. I reviewed the resident's note. I agree with the resident's assessment and plan unless otherwise noted. Signature: Liliya Mares MD Date: 10/01/2020 Time: 3:15 PM DISCHARGE SUMMARY PATIENT NAME: Rancho Muller Code Status: Prior Highest Readmission Risk Score: 11 The 30 day readmissions risk score is derived from an internally validated risk model which evaluates patient level characteristics, utilization history, medication orders and lab results up until the day of discharge. Patients with a score of 40 or above are considered highest risk for readmission. Specific patient level drivers will be listed at the bottom of the summary. Admission Information Admission Information ADMIT DATE: 09/30/2020 DISCHARGE DATE: 10/01/2020 MY DOCTORS AND MEDICAL TEAM: My Main Hospital Doctor: Liliya Mares MD Primary Care Provider: Mariela King MD My Medical Team Members: Treatment Team: Attending Provider: Liliya Mares MD MY CONDITION AT DISCHARGE: Stable REASON I WAS IN THE HOSPITAL: For carotid endarterectomy SUMMARY OF WHAT HAPPENED WHILE I WAS IN THE HOSPITAL: Came to the hospital for carotid endarterectomy. You tolerated the procedure well and taken the ICU for monitoring postoperatively. He did well overnight. The following morning your diet was advanced and you were able to tolerate a diet without issue. Your pain was under control and you are stable for discharge OTHER PROBLEMS/DIAGNOSIS: Active Problems: Carotid stenosis Resolved Problems: * No resolved hospital problems. * OPERATIONS PERFORMED WHILE IN THE HOSPITAL: Right Carotid artery endarterectomy IMPORTANT TEST/PROCEDURES: None TEST RESULTS NOT AVAILABLE AT THIS TIME: None Discharge Disposition Discharge Disposition: Home With Self Care Activity When You Leave the Hospital No prolonged bedrest, longer than 8 hours in a 24 hour period No walking restrictions Diet Instructions Drink 6 to 8 glasses of fluids per day Resume your pre-hospital diet For Pain When You Leave the Hospital Continue taking previously prescribed pain medications as directed If you become constipated, you may use any fcko-ljm-bhvwcsb treatment such as Milk of Magnesia, Sennakot, Prune Juice, Suppositories, etc. in addition to the stool softener/fiber supplement Use acetaminophen (Tylenol) as recommended on the bottle Use ibuprofen (Motrin, Advil) as recommended on the bottle Wound/Surgical Site Care Your incision has skin glue. It will peel off on its own. It can get wet Call Your Doctor If There is severe pain at the operative site You have persistent nausea/vomiting over 24 hours You have persistent or heavy bleeding You have redness, swelling, pus or drainage from the wound Your temperature is greater than 101F Follow Up Appointments Follow-Up Appointment When: In 2 weeks Patient/Parents to call for appointment?: Yes Liliya Mares MD [phone] [address] [facility] [address] PCP Requested Referral Additional Provider to Provider Information: Active Problems: Carotid stenosis Resolved Problems: * No resolved hospital problems. * Treatment Team: Attending Provider: Liliya Mares MD FOLLOW-UP APPOINTMENTS ALREADY SCHEDULED WITH A [facility] PROVIDER: Future Appointments Date Time Provider Department Center 10/30/2020 10:00 AM Alexa Schaefer APRN.CASE FINISHER [facility] Allergen Reactions - Penicillins Rash - Aspirin GI Upset GI upset Can take coated low dose asa DISCHARGE MEDICATION: Current Discharge Medication List CONTINUE these medications which have NOT CHANGED acetaminophen/diphenhy dramine (TYLENOL PM ORAL) 2 tablets Take 2 tablets by mouth daily at bedtime. aspirin 81 mg Take 81 mg by mouth once daily. Qty: 30 tablet Refills: 0 atorvastatin (LIPITOR) 40 mg Take 40 mg by mouth daily at bedtime. metoprolol succinate ER (TOPROL XL) 25 mg Take 25 mg by mouth once daily. escitalopram oxalate (LEXAPRO) 5 mg Take 5 mg by mouth once daily. lansoprazole(PREVACID 30 MG CAP) Take one(1) capsule daily., as needed Refills: 0 vitamin b complex 1 capsule Take 1 capsule by mouth once daily. multivitamin 1 tablet Take 1 tablet by mouth once daily. nitroglycerin sublingual (NITROQUICK) 0.[address] 1 tablet under the tongue if needed every 5 TO 15 MINUTES for chest pain for 3 doses Refills: 0 Exam: GENERAL: No distress, Alert NEURO: AANDOx3, CN (more content not included)... Normal [facility] Magnesium SerPl-mCncon 10-01 Magnesium [Mass/Vol] 1.8 mg/dL Normal 1.7-2.3 [facility] Comment on above: Order Comment: Speci men Type: BLOOD SPECIMEN Performed By: #### 2 4321-2, 79954-1, 2777-1 #### [facility] CLIA [id number] [address] [place] [address] OPERATIVE NOon 10-01-2020 OPERATIVE NO HNO ID: [id number] Author: Liliya Mares MD Service: Vascular Surgery Author Type: Physician Type: Operative Report Filed: 10/01/2020 4:14 PM Note Text: [facility] - Operative Report RANCHO MULLER : 1935 AGE: 84. SEX: M PATIENT TYPE: I HOSP SVC: MIKI LOCATION: [facility] ATTENDING PHYSICIAN: LILIYA MARES CSN NUMBER: [id number] DATE OF SURGERY/PROCEDURE: 09/30/2020 INCISION/PROCEDURE START TIME: 9:59 AM INCISION CLOSE/PROCEDURE END TIME: 11:32 AM PREOPERATIVE DIAGNOSIS: Carotid stenosis. POSTOPERATIVE DIAGNOSIS: Carotid stenosis. SURGEON: Liliya Mares MD SYSTEMS ENG: Claims Support Specialist: Fermin Cifuentes SA SURGERY/PROCEDURE: Right carotid endarterectomy. ANESTHESIA: General. DESCRIPTION OF PROCEDURE: Patient was seen in the preoperative area. Risks and benefits of procedure were reviewed with the patient. He was consented for the procedure and brought back to the operating room where general anesthesia was induced. He was prepped and draped in a sterile fashion. Appropriate preoperative antibiotics were given at the time of induction. Incision was made over the anterior border of the sternocleidomastoid and dissected down through the subcutaneous tissues. Sternocleidomastoid was identified and retracted laterally. Internal jugular vein was also identified. Facial vein was identified during this dissection and was suture ligated and transected. The carotid artery was identified in normal anatomic position. This was then dissected free proximally over the common carotid and distally over the internal and external carotid arteries. Vessel loops were placed over the internal, external, and common carotid artery as well as the superior thyroid artery. Patient was then bolused with heparin. ACTs were monitored throughout the case. When ACT reached 3000, the internal carotid was clamped followed by the common and external carotid arteries. Arteriotomy was made and endarterectomy was performed in standard fashion including eversion of the external carotid artery. Bovine pericardial patch was then placed using a series of running 6-0 Prolene stitches. Prior to completion of the anastomosis, the common carotid was flushed forward and good inflow was noted. Anastomosis was then completed. The common carotid was opened followed by the external and internal carotid arteries. Hemostasis was achieved within the wound. Heparin was reversed with protamine. Patient underwent continuous EEG monitoring throughout the case. Please see their report for full details. After hemostasis was achieved within the wound, the incision was closed with interrupted Vicryl sutures within the platysma and running 4-0 undyed Monocryl on the skin. Patient tolerated the procedure well. He will be sent to Recovery in stable condition. Liliya Mares MD LM:[id number] [facility] Phosphate SerPl-mCncon 10-01 Phosphate [Mass/Vol] 3.4 mg/dL Normal 2.7-4.8 [facility] Comment on above: Order Comment: Speci men Type: BLOOD SPECIMEN Performed By: #### 2 4321-2, 97219-9, 2777-1 #### [facility] CLIA [id number] [address] [place] [address] ANES PRE-OPon 09-30-2020 ANES PRE-OP HNO ID: [id number] Author: Rusty Gomez MD Service: Anesthesiology Author Type: Physician Type: Anesthesia Preprocedure Evaluation Filed: 09/30/2020 8:50 AM Note Text: ANESTHESIOLOGY DAY OF SURGERY NOTE : 1935 Procedure(s) (LRB): ENDARTERECTOMY CAROTID ADULT (Right) Surgeon(s): Liliya Mares MD Estimated body mass index is 29.16 kg/m? as calculated from the following: Height as of 09/24/20: 182.9 cm (6'). Weight as of 09/24/20: 97.5 kg (215 lb). Most recent hematocrit and potassium results: Hematocrit 43.1 09/24/2020 Potassium 5.2 09/24/2020 Relevant Problems CARDIO (+) Carotid stenosis (+) Coronary atherosclerosis of unspecified type of vessel, washoe or graft (+) HTN (hypertension) (+) Left carotid artery stenosis (+) Right bundle branch block GI (+) Esophageal reflux PULMONARY (+) COPD (chronic obstructive pulmonary disease) (HCC) s/p left cea in june No problems No changes in hx I - PHYSICAL EVALUATION AIRWAY Patient intubated: No. Tracheostomy tube not present Mallampati: II. TM distance: >3 FB. Neck ROM: full ROM without neurological symptoms. Mouth opening: adequate. Short neck: no. Thick neck: no DENTAL Dentures, upper: complete. Dentures, lower: complete. II - ANESTHESIA PLAN ASA Score: 3 Anesthetic Plan: general Airway type: ETT The patient is not a current smoker. NPO Status: adequate Monitoring plan: standard ASA and invasive hemodynamic monitoring. Monitoring method: arterial LinePostoperative analgesic plan: multimodal analgesia, go to ICU and per surgical service. Anesthetic Risks, Benefits, Alternatives, Personnel Discussed. Consent obtained from: patient.Patient / Surrogate agrees to blood products: Yes Potential Anesthesia issues that may suggest increased risk of complications or contraindication to planned procedure: none. Vitals Value Taken Time BP 161/72 09/30/20751 Pulse 62 09/30/20751 Resp 18 09/30/20751 Temp 36.1 ?C (97 ?F) 09/30/20751 SpO2 97 % 09/30/20751 Facility-Administered Medications as of 09/30/2020 Medication Dose Route Frequency - lidocaine 10 mg/mL (1 %) 1-2 mg injection (XYLOCAINE) 0.1-0.2 mL INTRADERMAL PRN - clindamycin iv piggyback 900 mg in D5W 50 mL (CLEOCIN) 900 mg INTRAVENOUS Pre-Op Once Outpatient Medications as of 09/30/2020 Medication Sig - acetaminophen/diphenhy dramine (TYLENOL PM ORAL) Take 2 tablets by mouth daily at bedtime. - aspirin 81 mg chewable tablet Take 1 tablet by mouth once daily. - atorvastatin (LIPITOR) 40 mg tablet Take 40 mg by mouth daily at bedtime. - metoprolol succinate ER (TOPROL XL) 25 mg 24 hr tablet Take 25 mg by mouth once daily. - escitalopram oxalate (LEXAPRO) 5 mg tablet Take 5 mg by mouth once daily. - lansoprazole(PREVACID 30 MG CAP) Take one(1) capsule daily., as needed - vitamin b complex capsule Take 1 capsule by mouth once daily. - multivitamin tablet Take 1 tablet by mouth once daily. - nitroglycerin sublingual (NITROQUICK) 0.[address] 1 tablet under the tongue if needed every 5 TO 15 MINUTES for chest pain for 3 doses I have interviewed and examined the patient. I have reviewed the medical record and/or the pre-anesthesia evaluation, pertinent labs, and test results. This contains updated information obtained within 48 hours of Surgery/Procedure. SIGNATURE: Rusty Gomez MD PATIENT NAME: Rancho Muller DATE: September 30, 2020 TIME: 8:49 AM CSN: [id number] [facility] BRIEF OP NOTon 09-30-2020 BRIEF OP NOT HNO ID: [id number] Author: Eber Allison DO Service: General Surgery Author Type: Resident Type: Brief Op Note Filed: 09/30/2020 1:08 PM Note Text: Attestation signed by Liliya Mares MD at 10/01/2020 3:34 PM Attending Note I personally saw and examined the patient. I reviewed the resident's note. I agree with the resident's assessment and plan unless otherwise noted. Signature: Liliya Mares MD Date: 10/01/2020 Time: 3:34 PM BRIEF OPERATIVE / PROCEDURE NOTE LOG ID: [id number] SURGERY/PROCEDURE DATE: 09/30/2020 INCISION/PROCEDURE START TIME: 9:59 AM INCISION CLOSE/PROCEDURE END TIME: 11:32 AM SURGEON(S)/PROCEDURALI ST(S) AND SYSTEMS ENG(S): Surgeon(s) and Role: * Liliya Mares MD - Primary Claims Support Specialist: Fermin Cifuentes SA SURGERY/PROCEDURE(S): R carotid endarterectomy ANESTHESIA: General FINDINGS: atherosclerotic plaque at the carotid bulb ESTIMATED BLOOD LOSS: 155 mls SPECIMENS: atherosclerotic plaque COMPLICATIONS: None PRE-OP/PRE-PROCEDURE DIAGNOSIS: internal carotid atherosclerosis, carotid stenosis POST-OP/POST-PROCEDURE DIAGNOSIS: Same as Preop SIGNATURE: Eber Allison DO PATIENT NAME: Rancho Muller DATE: September 30, 2020 TIME: 1:07 PM Normal [facility] Basic metabolic 2000 panelon 09-30-2020 Anion gap [Moles/Vol] 7 mmol/L Low 9-18 [facility] Comment on above: Order Comment: Speci men Type: BLOOD SPECIMEN Performed By: #### 2 4321-2 #### [facility] CLIA [id number] [address] [place] [address] Calcium [Mass/Vol] 9.2 mg/dL Normal 8.5-10.2 [facility] Comment on above: Order Comment: Speci men Type: BLOOD SPECIMEN Performed By: #### 2 4321-2 #### [facility] CLIA [id number] [address] [place] [address] Chloride [Moles/Vol] 105 mmol/L Normal 97-105 [facility] Comment on above: Order Comment: Speci men Type: BLOOD SPECIMEN Performed By: #### 2 4321-2 #### [facility] CLIA [id number] [address] [place] [address] CO2 [Moles/Vol] 27 mmol/L Normal 22-30 [facility] Comment on above: Order Comment: Speci men Type: BLOOD SPECIMEN Performed By: #### 2 4321-2 #### [facility] CLIA [id number] [address] [place] [address] Creatinine [Mass/Vol] 0.98 mg/dL Normal 0.73-1.22 [facility] Comment on above: Order Comment: Speci men Type: BLOOD SPECIMEN Performed By: #### 2 4321-2 #### [facility] CLIA [id number] [address] [place] [address] GFR/1.73 sq M.predicted MDRD (S/P/Bld) [Vol rate/Area] mL/min/{1.73_m2} Normal [facility] Comment on above: Order Comment: Speci men Type: BLOOD SPECIMEN Result Comment: >60 eGFR (Estimated GFR) Units of measure: mL/min/1.73 meters squared eGFR is derived from the reexpressed MDRD Study equation using the following parameters: serum creatinine, age, gender and race. The creatinine assay has been calibrated to be traceable to IDMS. An eGFR <60 mL/min/1.73m2 for >3 months is consistent with chronic kidney disease. Refer to KDOQI guidelines for clinical interpretation. In patients with unstable renal function, e.g. those with acute kidney injury, the eGFR may not accurately reflect actual GFR. Performed By: #### 2 4321-2 #### [facility] CLIA [id number] [address] [place] [address] Glucose [Mass/Vol] 158 mg/dL High 74-99 [facility] Comment on above: Order Comment: Speci men Type: BLOOD SPECIMEN Result Comment: The [place] Diabetes Association (ADA) provides guidance for cutoff values for fasting glucose and random glucose. The ADA defines fasting as no caloric intake for at least 8 hours. Fasting plasma glucose results between 100 to 125 mg/dL indicate increased risk for diabetes (prediabetes). Fasting plasma glucose results greater than or equal to 126 mg/dL meet the criteria for diagnosis of diabetes. In the absence of unequivocal hyperglycemia, results should be confirmed by repeat testing. In a patient with classic symptoms of hyperglycemia or hyperglycemic crisis, random plasma glucose results greater than or equal to 200 mg/dL meet the criteria for diagnosis of diabetes. Reference: Standards of Medical Care in Diabetes 2016, [place] Diabetes Association. Diabetes Care. 2016.39(Suppl 1). Performed By: #### 2 4321-2 #### [facility] CLIA [id number] [address] [place] [address] Potassium [Moles/Vol] 4.3 mmol/L Normal 3.7-5.1 [facility] Comment on above: Order Comment: Speci men Type: BLOOD SPECIMEN Performed By: #### 2 4321-2 #### [facility] CLIA [id number] [address] [place] [address] Sodium [Moles/Vol] 139 mmol/L Normal 136-144 [facility] Comment on above: Order Comment: Speci men Type: BLOOD SPECIMEN Performed By: #### 2 4321-2 #### [facility] CLIA [id number] [address] [place] [address] Urea nitrogen [Mass/Vol] 15 mg/dL Normal 9-24 [facility] Comment on above: Order Comment: Speci men Type: BLOOD SPECIMEN Performed By: #### 2 4321-2 #### [facility] CLIA [id number] [address] [place] [address] CBC W Auto Differential pane l (Bld)on 09-30-2020 Basophils (Bld) [#/Vol] 0.06 10*3/uL Normal <0.11 [facility] Comment on above: Order Comment: Speci men Type: BLOOD SPECIMEN Performed By: #### 2 4321-2, , 2776-05 #### [facility] CLIA [id number] [address] [place] [address] Basophils/100 WBC (Bld) 0.4 % Normal [facility] Comment on above: Order Comment: Speci men Type: BLOOD SPECIMEN Performed By: #### 2 4321-2, , 2776-05 #### [facility] CLIA [id number] [address] [place] [address] Differential cell count method Nom (Bld) Auto Normal [facility] Comment on above: Order Comment: Speci men Type: BLOOD SPECIMEN Performed By: #### 2 4321-2, , 2776-05 #### [facility] CLIA [id number] [address] [place] [address] Eosinophils (Bld) [#/Vol] 0.07 10*3/uL Normal <0.46 [facility] Comment on above: Order Comment: Speci men Type: BLOOD SPECIMEN Performed By: #### 2 4321-2, , 2776-05 #### [facility] CLIA [id number] [address] [place] [address] Eosinophils/100 WBC (Bld) 0.5 % Normal [facility] Comment on above: Order Comment: Speci men Type: BLOOD SPECIMEN Performed By: #### 2 4321-2, , 2776-05 #### [facility] CLIA [id number] [address] [place] [address] Erythrocyte distribution width (RBC) [Ratio] 13.8 % Normal 11.5-15.0 [facility] Comment on above: Order Comment: Speci men Type: BLOOD SPECIMEN Performed By: #### 2 4321-2, , 2776-05 #### [facility] CLIA [id number] [address] [place] [address] Hematocrit (Bld) [Volume fraction] 42.8 % Normal 39.0-51.0 [facility] Comment on above: Order Comment: Speci men Type: BLOOD SPECIMEN Performed By: #### 2 4321-2, , 2776-05 #### [facility] CLIA [id number] [address] [place] [address] Hemoglobin (Bld) [Mass/Vol] 14.7 g/dL Normal 13.0-17.0 [facility] Comment on above: Order Comment: Speci men Type: BLOOD SPECIMEN Performed By: #### 2 4321-2, , 2776-05 #### [facility] CLIA [id number] [address] [place] [address] IMMATURE GRAN % 0.6 % Normal [facility] Comment on above: Order Comment: Speci men Type: BLOOD SPECIMEN Performed By: #### 2 4321-2, , 2776-05 #### [facility] CLIA [id number] [address] [place] [address] IMMATURE GRAN ABS 0.09 k/uL Normal <0.10 [facility] Comment on above: Order Comment: Speci men Type: BLOOD SPECIMEN Performed By: #### 2 4321-2, , 2776-05 #### [facility] CLIA [id number] [address] [place] [address] Lymphocytes (Bld) [#/Vol] 3.17 10*3/uL Normal 1.00-4.00 [facility] Comment on above: Order Comment: Speci men Type: BLOOD SPECIMEN Performed By: #### 2 4321-2, , 2776-05 #### [facility] CLIA [id number] [address] [place] [address] Lymphocytes/100 WBC (Bld) 22.9 % Normal [facility] Comment on above: Order Comment: Speci men Type: BLOOD SPECIMEN Performed By: #### 2 4321-2, , 2776-05 #### [facility] CLIA [id number] [address] [place] [address] MCH (RBC) [Entitic mass] 31.5 pg Normal 26.0-34.0 [facility] Comment on above: Order Comment: Speci men Type: BLOOD SPECIMEN Performed By: #### 2 4321-2, , 2776-05 #### [facility] CLIA [id number] [address] [place] [address] MCHC (RBC) [Mass/Vol] 34.3 g/dL Normal 30.5-36.0 [facility] Comment on above: Order Comment: Speci men Type: BLOOD SPECIMEN Performed By: #### 2 4320-2, , 2776-05 #### [facility] CLIA [id number] [address] [place] [address] MCV (RBC) [Entitic vol] 91.8 fL Normal 80.0-100.0 [facility] Comment on above: Order Comment: Speci men Type: BLOOD SPECIMEN Performed By: #### 2 4320-2, , 2776-05 #### [facility] CLIA [id number] [address] [place] [address] Monocytes (Bld) [#/Vol] 0.83 10*3/uL Normal <0.87 [facility] Comment on above: Order Comment: Speci men Type: BLOOD SPECIMEN Performed By: #### 2 1-2, , 2776-05 #### [facility] CLIA [id number] [address] [place] [address] Monocytes/100 WBC (Bld) 6.0 % Normal [facility] Comment on above: Order Comment: Speci men Type: BLOOD SPECIMEN Performed By: #### 2 1-2, , 2776-05 #### [facility] CLIA [id number] [address] [place] [address] Neutrophils (Bld) [#/Vol] 9.63 10*3/uL High 1.45-7.50 [facility] Comment on above: Order Comment: Speci men Type: BLOOD SPECIMEN Performed By: #### 2 4321-2, , 2776-05 #### [facility] CLIA [id number] [address] [place] [address] Neutrophils/100 WBC (Bld) 69.6 % Normal [facility] Comment on above: Order Comment: Speci men Type: BLOOD SPECIMEN Performed By: #### 2 4321-2, , 2776-05 #### [facility] CLIA [id number] [address] [place] [address] Nucleated RBC (Bld) [#/Vol] 10*3/uL Normal <0.01 [facility] Comment on above: Order Comment: Speci men Type: BLOOD SPECIMEN Performed By: #### 2 4321-2, , 2776-05 #### [facility] CLIA [id number] [address] [place] [address] Nucleated RBC/100 WBC (Bld) [Ratio] 0.0 /100 WBC Normal 0.0 [facility] Comment on above: Order Comment: Speci men Type: BLOOD SPECIMEN Performed By: #### 2 1-2, , 2776-05 #### [facility] CLIA [id number] [address] [place] [address] Platelet mean volume (Bld) [Entitic vol] 8.8 fL Low 9.0-12.7 [facility] Comment on above: Order Comment: Speci men Type: BLOOD SPECIMEN Performed By: #### 2 4321-2, , 2776-05 #### [facility] CLIA [id number] [address] [place] [address] Platelets (Bld) [#/Vol] 219 10*3/uL Normal 150-400 [facility] Comment on above: Order Comment: Speci men Type: BLOOD SPECIMEN Performed By: #### 2 4321-2, , 2776-05 #### [facility] CLIA [id number] [address] [place] [address] RBC (Bld) [#/Vol] 4.66 10*6/uL Normal 4.20-6.00 [facility] Comment on above: Order Comment: Speci men Type: BLOOD SPECIMEN Performed By: #### 2 4321-2, 55370-1, 7-1 #### [facility] CLIA [id number] [address] [place] [address] WBC (Bld) [#/Vol] 13.85 10*3/uL High 3.70-11.00 [facility] Comment on above: Order Comment: Speci men Type: BLOOD SPECIMEN Performed By: #### 2 4321-2, 65928-4, 2776- #### [facility] CLIA [id number] [address] [place] [address] PT panel Coag (PPP)on 2020 INR Coag (PPP) [Relative time] 1.1 {INR} Normal 0.9-1.3 [facility] Comment on above: Order Comment: Speci men Type: BLOOD SPECIMEN Result Comment: Anjana min K Antagonist (VKA) Therapeutic Range: INR 2 to 3 (Target INR of 2.5) Note: For patients treated with VKA drugs, such as warfarin, the [place] [employer] 2012 Guideline recommends a therapeutic INR range of 2 to 3 (target INR of 2.5). This recommendation includes high-risk patients with antiphospholipid syndrome with previous arterial or venous thromboembolism, current-generation mechanical or bioprosthetic aortic heart valve replacement. Note: Patients with mechanical aortic valve replacement and additional risk factors for thromboembolic events (atrial fibrillation, previous thromboembolism, LV dysfunction, hypercoagulable conditions) or an older generation mechanical AVR (i.e., ball in-Cage) or any mechanical MVR should have a INR therapeutic range of 2.5 to 3.5 (target INR of 3). Lindsay GH, et al. Chest 2012, 141:7S-47S Raina LALA et al. [facility] 2017, 70: 252-289 Performed By: #### 1 4979-9, 83579-3 #### [facility] CLIA [id number] [address] [place] [address] PT Coag (PPP) [Time] 11.1 s Normal 9.7-13.0 [facility] Comment on above: Order Comment: Speci men Type: BLOOD SPECIMEN Performed By: #### 1 4979-9, 06413-9 #### [facility] CLIA [id number] [address] [place] [address] SURGICAL PATHOLOGYon CASE REPORT Normal [facility] Comment on above: Order Comment: Speci men Type: BLOOD SPECIMEN Result Comment: Surg ical Pathology Report Case: [id number] Authorizing Provider: Liliya Mares MD Collected: 09/30/2020 11:16 AM Ordering Location: [facility] Received: 09/30/2020 12:25 PM Pathologist: Shyla Del Toro MD Specimen: PLAQUE Performed By: #### 2 4321-2, 05365-0, 2776-05 #### [facility] CLIA [id number] [address] [place] [address] FINAL DIAGNOSIS Normal [facility] Comment on above: Order Comment: Speci men Type: BLOOD SPECIMEN Result Comment: A. P sidney, right carotid artery, endarterectomy Fragments of calcified atherosclerotic plaque. Performed By: #### 2 4321-2, 88738-6, 2776-05 #### [facility] CLIA [id number] [address] [place] [address] FINAL PERFORMING LAB Normal [facility] Comment on above: Order Comment: Speci men Type: BLOOD SPECIMEN Result Comment: Diag nostic interpretation performed at [facility], [address] [place] [address] CLIA# [id number] Puff Ironer: Mariela Melissa M.D. Performed By: #### 2 4321-2, 70010-0, 2776-05 #### [facility] CLIA [id number] [address] [place] [address] GROSS DESCRIPTION A. PLAQUE. Normal [facility] Comment on above: Order Comment: Speci men Type: BLOOD SPECIMEN Result Comment: Rece ived in formalin labeled plaque is a segment of yellow-gilmore plaque-like material measuring 2.6 x 1.6 x 1.2 cm. Upon sectioning areas of ulceration and calcification are present. An attached thrombus is not seen. [place] sections are submitted in formalin in 1 cassette following a brief period of decalcification. KVB/maury Gross examination performed at [facility], [address] [place] [address] CLIA# [id number] Performed By: #### 2 4321-2, 12735-2, 2777-1 #### [facility] CLIA [id number] [address] [place] [id number] aPTT PPPon 09-30-2020 aPTT Coag (PPP) [Time] 64.6 s High 23.0-32.4 [facility] Comment on above: Order Comment: Speci men Type: BLOOD SPECIMEN Performed By: #### 1 4979-9, 97641-3 #### [facility] CLIA [id number] [address] [place] [id number] CNPNon 09-29-2020 CNPN Telephone ([place]) RANCHO MULLER ([id number]) 1935 M Date Time Provider Department 09/29/20 LILIYA MARES During your visit today, we recorded the following information about you: [place] 09/29/2020 2:21 PM Signed After speaking with Dr. Mares about the cardiac clearance, she has stated that: No cardiac optimization is required for surgery on . Allergies As of Date: 09/29/2020 Noted Allergy Reaction PENICILLINS 05/17/2005 2 - Rash ASPIRIN 05/17/2005 8 - GI Upset Comments: GI upset Can take coated low dose asa Date Reviewed: 09/24/2020 Reviewed by: Bethany Moulton APRN.CASE FINISHER - Fully Assessed Reason for Visit: Cardiac Clearance [4105] Prescriptions as of 09/29/2020 Sig: VITAMIN B COMPLEX CAPSULE Take 1 capsule by mouth once * MULTIVITAMIN TABLET Take 1 tablet by mouth once d* TYLENOL PM ORAL Take 2 tablets by mouth daily* ASPIRIN 81 MG CHEWABLE TABLET Take 1 tablet by mouth once d* ATORVASTATIN 40 MG TABLET Take 40 mg by mouth daily at * METOPROLOL SUCCINATE ER 25 MG* Take 25 mg by mouth once tyson* ESCITALOPRAM 5 MG TABLET Take 5 mg by mouth once daily. NITROGLYCERIN 0.4 MG SUBLINGU* place 1 tablet under the tong* * PREVACID 30 MG CAPSULE,DELAYE* Take one(1) capsule daily., a* Problem List As Of Date 09/29/2020 Noted Resolved DISC DISPLACEMENT NOS [[id number]] 06/12/2005 CORONARY ATHEROSCLER UNSPEC VESSEL [I25.10] 06/12/2005 HLD (hyperlipidemia) [E78.5] 06/12/2005 Depression [F32.9] 06/12/2005 ESOPHAGEAL REFLUX [K21.9] 06/12/2005 RT BUNDLE BRANCH BLOCK [I45.10] 06/12/2005 CARDIOMEGALY [I51.7] 06/12/2005 HYPERPOTASSEMIA [E87.5] 06/12/2005 HYPERCALCEMIA [E83.52] 06/12/2005 SPINAL STENOSIS-LUMBAR [M48.061] 06/12/2005 LUMBAR DISC DISPLACEMENT [M51.26] 06/12/2005 LUMBOSACRAL SPONDYLOSIS [M47.817] 06/12/2005 SKIN CARCINOMA BACK [173.5] 12/26/2007 Multiple Thyroid Nodules [E04.2] 09/07/2009 Cholelithiasis and Cholecystitis without Obstru*12/14/2009 Stroke-like symptoms [R29.90] 02/28/2020 03/03/2020 Left carotid artery stenosis [I65.22] 02/28/2020 HTN (hypertension) [I10] 02/28/2020 COPD (chronic obstructive pulmonary disease) (H*02/28/2020 Numbness and tingling in right hand [R20.0, R20*02/28/2020 03/03/2020 Symptomatic carotid artery stenosis [I65.29] 02/28/2020 03/03/2020 COVID-19 vaccine administered [Z23] 06/18/2020 Carotid stenosis [I65.29] 07/22/2020 Encounter Status:Closed by [place] on 09/29/20 [facility] CNPN Telephone (AGMinimally invasive devicesACC) RANCHO MULLER ([id number]) 1935 M Date Time Provider Department 09/29/20 LILIYA MARES During your visit today, we recorded the following information about you: Allergies As of Date: 09/29/2020 Noted Allergy Reaction PENICILLINS 05/17/2005 2 - Rash ASPIRIN 05/17/2005 8 - GI Upset Comments: GI upset Can take coated low dose asa Date Reviewed: 09/24/2020 Reviewed by: Bethany Moulton APRN.CASE FINISHER - Fully Assessed Reason for Visit: Cardiac Clearance [4105] Prescriptions as of 09/29/2020 Sig: VITAMIN B COMPLEX CAPSULE Take 1 capsule by mouth once * MULTIVITAMIN TABLET Take 1 tablet by mouth once d* TYLENOL PM ORAL Take 2 tablets by mouth daily* ASPIRIN 81 MG CHEWABLE TABLET Take 1 tablet by mouth once d* ATORVASTATIN 40 MG TABLET Take 40 mg by mouth daily at * METOPROLOL SUCCINATE ER 25 MG* Take 25 mg by mouth once tyson* ESCITALOPRAM 5 MG TABLET Take 5 mg by mouth once daily. NITROGLYCERIN 0.4 MG SUBLINGU* place 1 tablet under the tong* * PREVACID 30 MG CAPSULE,DELAYE* Take one(1) capsule daily., a* Problem List As Of Date 09/29/2020 Noted Resolved DISC DISPLACEMENT NOS [[id number]] 06/12/2005 CORONARY ATHEROSCLER UNSPEC VESSEL [I25.10] 06/12/2005 HLD (hyperlipidemia) [E78.5] 06/12/2005 Depression [F32.9] 06/12/2005 ESOPHAGEAL REFLUX [K21.9] 06/12/2005 RT BUNDLE BRANCH BLOCK [I45.10] 06/12/2005 CARDIOMEGALY [I51.7] 06/12/2005 HYPERPOTASSEMIA [E87.5] 06/12/2005 HYPERCALCEMIA [E83.52] 06/12/2005 SPINAL STENOSIS-LUMBAR [M48.061] 06/12/2005 LUMBAR DISC DISPLACEMENT [M51.26] 06/12/2005 LUMBOSACRAL SPONDYLOSIS [M47.817] 06/12/2005 SKIN CARCINOMA BACK [173.5] 12/26/2007 Multiple Thyroid Nodules [E04.2] 09/07/2009 Cholelithiasis and Cholecystitis without Obstru*12/14/2009 Stroke-like symptoms [R29.90] 02/28/2020 03/03/2020 Left carotid artery stenosis [I65.22] 02/28/2020 HTN (hypertension) [I10] 02/28/2020 COPD (chronic obstructive pulmonary disease) (H*02/28/2020 Numbness and tingling in right hand [R20.0, R20*02/28/2020 03/03/2020 Symptomatic carotid artery stenosis [I65.29] 02/28/2020 03/03/2020 COVID-19 vaccine administered [Z23] 06/18/2020 Carotid stenosis [I65.29] 07/22/2020 Encounter Status:Closed by [place] on 09/29/20 Normal [facility] PreOp/PreProc COVIDon 2020 SARS-CoV-2 (COVID-19) RNA ELVIRA+probe Ql (Unsp spec) UPPER RESPIRATORY TRACT SWAB Normal [facility] Comment on above: Performed By: #### P OCOVD #### [facility] [address] [place] [id number] SARS-CoV-2 (COVID-19) RNA ELVIRA+probe Ql (Unsp spec) Negative for COVID19 (SARS CoV2) by RT-PCR or equivalent method. Normal Negative for COVID19 (SARS CoV2) by RT-PCR or equivalent method. [facility] Comment on above: Result Comment: This test was developed and its performance characteristics determined by [facility]'s [facility] [place]. This test has been authorized by FDA under an Emergency Use Authorization (EUA). This test has been validated in accordance with the FDA's Guidance Document Policy for Diagnostics Testing in Laboratories Certified to Perform High Complexity Testing under CLIA prior to Emergency use Authorization for Coronavirus Disease 2019 during the Public Health Emergency issued on June 29, 2019. Test performed by [facility], [facility] and [facility] [place], [address], [place] [address]. Performed By: #### P OCOVD #### [facility] [address] [place] [address] Basic metabolic 2000 panelon 09-24-2020 Anion gap [Moles/Vol] 9 mmol/L Normal 9-18 [facility] Comment on above: Order Comment: Speci men Type: BLOOD SPECIMEN Performed By: #### 2 4321-2, , 2776-05 #### [facility] CLIA [id number] [address] [place] [address] Calcium [Mass/Vol] 10.0 mg/dL Normal 8.5-10.2 [facility] Comment on above: Order Comment: Speci men Type: BLOOD SPECIMEN Performed By: #### 2 4321-2, , 2776-05 #### [facility] CLIA [id number] [address] [place] [address] Chloride [Moles/Vol] 102 mmol/L Normal 97-105 [facility] Comment on above: Order Comment: Speci men Type: BLOOD SPECIMEN Performed By: #### 2 4321-2, , 2776-05 #### [facility] CLIA [id number] [address] [place] [address] CO2 [Moles/Vol] 29 mmol/L Normal 22-30 [facility] Comment on above: Order Comment: Speci men Type: BLOOD SPECIMEN Performed By: #### 2 4321-2, , 2776-05 #### [facility] CLIA [id number] [address] [place] [address] Creatinine [Mass/Vol] 1.09 mg/dL Normal 0.73-1.22 [facility] Comment on above: Order Comment: Speci men Type: BLOOD SPECIMEN Performed By: #### 2 4321-2, 79693-8, 2776-05 #### [facility] CLIA [id number] [address] [place] [address] GFR/1.73 sq M.predicted MDRD (S/P/Bld) [Vol rate/Area] mL/min/{1.73_m2} Normal [facility] Comment on above: Order Comment: Speci men Type: BLOOD SPECIMEN Result Comment: >60 eGFR (Estimated GFR) Units of measure: mL/min/1.73 meters squared eGFR is derived from the reexpressed MDRD Study equation using the following parameters: serum creatinine, age, gender and race. The creatinine assay has been calibrated to be traceable to IDMS. An eGFR <60 mL/min/1.73m2 for >3 months is consistent with chronic kidney disease. Refer to KDOQI guidelines for clinical interpretation. In patients with unstable renal function, e.g. those with acute kidney injury, the eGFR may not accurately reflect actual GFR. Performed By: #### 2 4321-2, , 2776-05 #### [facility] CLIA [id number] [address] [place] [address] Glucose [Mass/Vol] 99 mg/dL Normal 74-99 [facility] Comment on above: Order Comment: [facility] Type: BLOOD SPECIMEN Result Comment: The [place] Diabetes Association (ADA) provides guidance for cutoff values for fasting glucose and random glucose. The ADA defines fasting as no caloric intake for at least 8 hours. Fasting plasma glucose results between 100 to 125 mg/dL indicate increased risk for diabetes (prediabetes). Fasting plasma glucose results greater than or equal to 126 mg/dL meet the criteria for diagnosis of diabetes. In the absence of unequivocal hyperglycemia, results should be confirmed by repeat testing. In a patient with classic symptoms of hyperglycemia or hyperglycemic crisis, random plasma glucose results greater than or equal to 200 mg/dL meet the criteria for diagnosis of diabetes. Reference: Standards of Medical Care in Diabetes 2016, [place] [employer] Association. Diabetes Care. 2016.39(Suppl 1). Performed By: #### 2 4321-2, , 2776-05 #### [facility] CLIA [id number] [address] [place] [address] Potassium [Moles/Vol] 5.2 mmol/L High 3.7-5.1 [facility] Comment on above: Order Comment: Speci men Type: BLOOD SPECIMEN Performed By: #### 2 4321-2, , 2776-05 #### [facility] CLIA [id number] [address] [place] [address] Sodium [Moles/Vol] 140 mmol/L Normal 136-144 [facility] Comment on above: Order Comment: Speci men Type: BLOOD SPECIMEN Performed By: #### 2 4321-2, , 2776-05 #### [facility] CLIA [id number] [address] [place] [address] Urea nitrogen [Mass/Vol] 15 mg/dL Normal 9-24 [facility] Comment on above: Order Comment: Speci men Type: BLOOD SPECIMEN Performed By: #### 2 4321-2, , 2776-05 #### [facility] CLIA [id number] [address] [place] [address] CBC panel Auto (Bld)on 09-24 Erythrocyte distribution width (RBC) [Ratio] 14.2 % Normal 11.5-15.0 [facility] Comment on above: Order Comment: Speci men Type: BLOOD SPECIMEN Performed By: #### 5 8410-2 #### [facility] CLIA [id number] [address] [place] [address] Hematocrit (Bld) [Volume fraction] 43.1 % Normal 39.0-51.0 [facility] Comment on above: Order Comment: Speci men Type: BLOOD SPECIMEN Performed By: #### 5 8410-2 #### [facility] CLIA [id number] [address] [place] [address] Hemoglobin (Bld) [Mass/Vol] 14.4 g/dL Normal 13.0-17.0 [facility] Comment on above: Order Comment: Speci men Type: BLOOD SPECIMEN Performed By: #### 5 8410-2 #### [facility] CLIA [id number] [address] [place] [address] MCH (RBC) [Entitic mass] 31.4 pg Normal 26.0-34.0 [facility] Comment on above: Order Comment: Speci men Type: BLOOD SPECIMEN Performed By: #### 5 8410-2 #### [facility] CLIA [id number] [address] [place] [address] MCHC (RBC) [Mass/Vol] 33.4 g/dL Normal 30.5-36.0 [facility] Comment on above: Order Comment: Speci men Type: BLOOD SPECIMEN Performed By: #### 5 8410-2 #### [facility] CLIA [id number] [address] [place] [address] MCV (RBC) [Entitic vol] 94.1 fL Normal 80.0-100.0 [facility] Comment on above: Order Comment: Speci men Type: BLOOD SPECIMEN Performed By: #### 5 8410-2 #### [facility] CLIA [id number] [address] [place] [address] Nucleated RBC (Bld) [#/Vol] 10*3/uL Normal <0.01 [facility] Comment on above: Order Comment: Speci men Type: BLOOD SPECIMEN Performed By: #### 5 8410-2 #### [facility] CLIA [id number] [address] [place] [address] Platelet mean volume (Bld) [Entitic vol] 9.6 fL Normal 9.0-12.7 [facility] Comment on above: Order Comment: Speci men Type: BLOOD SPECIMEN Performed By: #### 5 8410-2 #### [facility] CLIA [id number] [address] [place] [address] Platelets (Bld) [#/Vol] 222 10*3/uL Normal 150-400 [facility] Comment on above: Order Comment: Speci men Type: BLOOD SPECIMEN Performed By: #### 5 8410-2 #### [facility] CLIA [id number] [address] [place] [address] RBC (Bld) [#/Vol] 4.58 10*6/uL Normal 4.20-6.00 [facility] Comment on above: Order Comment: Speci men Type: BLOOD SPECIMEN Performed By: #### 5 8410-2 #### [facility] CLIA [id number] [address] [place] [address] WBC (Bld) [#/Vol] 8.85 10*3/uL Normal 3.70-11.00 [facility] Comment on above: Order Comment: Speci men Type: BLOOD SPECIMEN Performed By: #### 5 8410-2 #### [facility] CLIA [id number] [address] [place] [id number] HISTORY PHYSICALon HISTORY PHYSICAL HNO ID: [id number] Author: Bethany Moulton APRN.CASE FINISHER Service: ? Author Type: Nurse Practitioner Type: HANDP Filed: 09/24/2020 10:50 AM Note Text: HISTORY AND PHYSICAL EXAMINATION SERVICE DATE: 09/24/2020 SERVICE TIME: 10:20 AM PRIMARY CARE PHYSICIAN: Mariela King MD REASON FOR VISIT: Rancho Muller is a 84 year old male who is scheduled for Procedure(s): ENDARTERECTOMY CAROTID ADULT (Right) at the request of Dr. Liliya Mares for routine HANDP. My final recommendation will be communicated back to the requesting physician by way of shared medical record or letter. Subjective The patient has the following: ACTIVE PROBLEM LIST Displacement of Intervertebral Disc, Site Unspecified, Without Myelopathy Coronary Atherosclerosis of Unspecified Type of Vessel, [place] Or Graft Hld (Hyperlipidemia) Depression Esophageal Reflux Right Bundle Branch Block Cardiomegaly Hyperpotassemia Hypercalcemia Spinal Stenosis, Lumbar Region, Without Neurogenic Claudication Displacement of Lumbar Intervertebral Disc Without Myelopathy Lumbosacral Spondylosis Without Myelopathy SKIN CARCINOMA BACK Multiple Thyroid Nodules Cholelithiasis and Cholecystitis Without Obstruction Left Carotid Artery Stenosis Htn (Hypertension) Copd (Chronic Obstructive Pulmonary Disease) (Hcc) Covid-19 Vaccine Administered Carotid Stenosis CHIEF COMPLAINT: Bilateral carotid artery stenosis (I65.23) HPI: Rancho Muller is a 84 year old male present in presurgical testing.He states he had two TIA's.He states he had carotid ultrasound completed [place]. He was told he had blockage of 70 to 90%. He already had a left carotid enterectomy and now the right is ready for surgery. He states when he had his TIA he could not talk, walk and was very confused. He states he was rushed to the hospital and the symptoms cleared. He denies any symptoms now.He rates the pain 0/10. Surgery was recommended and he agrees to proceed as planned. He is scheduled for ENDARTERECTOMY CAROTID ADULT (Right) on 09/30/[address] Mares Surgery will be at [facility] Have you been in contact with someone with known coronavirus/Covid 19? no Have you had surgery or pre testing at [facility] in the past 3 years? Yes REVIEW OF SYSTEMS: General: No weight loss, malaise or fevers. Neurological: Positive for: headaches (+ left sided headaches) and TIA. Negative for: seizures. Respiratory: Positive for: COPD and dyspnea. Negative for: asthma, current cough, home oxygen, tobacco use and obstructive sleep apnea. Cardiovascular: + cardiomegally. + RBBB. + PAD. + bilateral carotid stenosis Positive for: CAD, hyperlipidemia, hypertension and open heart surgery (2000) Negative for: chest pain, CHF and recent MD. GI: Positive for: GERD Negative for: abdominal pain, nausea and vomiting. : No history of dysuria, frequency or incontinence, stones or chronic kidney disease. No difficulty urinating, nocturia > 1 time per night or hematuria. Endocrine: No history of diabetes. Has not taken steroids within the past 30 days. No history of endocrinological symptoms or problems. Negative for: hypothyroidism. Hematology: No history of bleeding or clotting disorder. Patient is not taking anti-coagulation or platelet medications. No history of hematological symptoms or problems. Oncology: No history of CA metastasis, chemo within 30 days, or radiotherapy within 90 days. No history of oncological symptoms or problems. Psych: Positive for: depression. Negative for: anxiety. Musculoskeletal: + walk with a cane Skin: Negative for lesions, rash and itching. PAST MEDICAL HISTORY Diagnosis Date - Bilateral carotid artery stenosis - Cardiomegaly - COPD (chronic obstructive pulmonary disease) (HCC) - Coronary atherosclerosis of unspecified type of vessel, washoe or graft - COVID-19 vaccine administered 06/18/2020 Patient recvieved Moderna vaccines on 05/21/20 and second one on 06/18/20 - Depression - Displacement of intervertebral disc, site unspecified, without myelopathy - GERD (gastroesophageal reflux disease) - Lumbosacral spondylosis without myelopathy - Other and unspecified hyperlipidemia - PAD (peripheral artery disease) (HCC) - Right bundle branch block - Spinal stenosis, lumbar region, without neurogenic claudication - Swelling left foot and ankle PAST SURGICAL HISTORY Procedure Laterality Date - APPENDECTOMY 1969'S - CABG, ARTERIAL, FOUR+ 06/2000 quadruple - CAROTID ENDARTERECTOMY Left 07/22/2020 Left carotid endarterectomy - FNA WITH IMAGING 09/14/2009 U/S FNA right thyroid lesion - LOW BACK DISK SURGERY 2006 ruptured disk - MAL LESION TRUNK,ARM,LEG 1.1-2.0 CM 02/05/2008 Exc, left upper back skin lesion - PAST SURGICAL HISTORY OF Right 2017 repair femur spiral fracture - RIGHT HEART CATHETERIZATION 12/09/2009 Cardiac cath, R heart, [facility] HISTORY Problem Re (more content not included)... Normal [facility] PT panel Coag (PPP)on 2020 INR Coag (PPP) [Relative time] 1.0 {INR} Normal 0.9-1.3 [facility] Comment on above: Order Comment: Speci men Type: BLOOD SPECIMEN Result Comment: Anjana min K Antagonist (VKA) Therapeutic Range: INR 2 to 3 (Target INR of 2.5) Note: For patients treated with VKA drugs, such as warfarin, the [place] [employer] 2012 Guideline recommends a therapeutic INR range of 2 to 3 (target INR of 2.5). This recommendation includes high-risk patients with antiphospholipid syndrome with previous arterial or venous thromboembolism, current-generation mechanical or bioprosthetic aortic heart valve replacement. Note: Patients with mechanical aortic valve replacement and additional risk factors for thromboembolic events (atrial fibrillation, previous thromboembolism, LV dysfunction, hypercoagulable conditions) or an older generation mechanical AVR (i.e., ball in-Cage) or any mechanical MVR should have a INR therapeutic range of 2.5 to 3.5 (target INR of 3). Lindsay GH, et al. Chest 2012, 141:7S-47S Raina RA, et al. [facility] 2017, 70: 252-289 Performed By: #### 2 4321-2, 10771-5, 2777-1 #### [facility] CLIA [id number] [address] [place] [address] PT Coag (PPP) [Time] 10.1 s Normal 9.7-13.0 [facility] Comment on above: Order Comment: Speci men Type: BLOOD SPECIMEN Performed By: #### 2 4321-2, 15976-2, 2777-1 #### [facility] CLIA [id number] [address] [place] [address] CNOVon 08-21-2020 CNOV Office Visit (AGVASACC) RANCHO MULLER ([id number]) 1935 M Date Time Provider Department 08/21/20 10:30 AM ALEXA SCHAEFER (SENIOR MEDICAL TRANSCRIPTIONIST, CASE FINISHER)AGROMI During your visit today, we recorded the following information about you: Pulse Blood pressure Weight Height 61/minute 122/60 97.5 kg 1.829 m Alexa Schaefer APRN.CASE FINISHER, CASE FINISHER 08/21/2020 2:13 PM Signed Rancho Silva Yohana 84 year old male S/P Left carotid endarterectomy PROCEDURE: L CEA by Dr. Mares DATE: 07/22/20 SUBJECTIVE: Rancho Muller comes to the office today, accompanied by his (she stated pt is aphasic and she needed to be present during office visit - pt is no longer aphasic), for post-op evaluation following his left carotid surgery. Pt reports that he is doing well, though has started having left shoulder/arm pain since his surgery. Notes that when he has his arm in a certain position - say, resting on the arm of a chair - it causes severe, sharp pain down his upper arm. Once he repositions his arm, the pain is relieved. Pt denies incisional pain, noting only some jaw line paresthesia and sensitivity. Swallow is fine and voice is unchanged. EXAM: Neurological Exam: Normal; Awake, alert, oriented, pleasant, and appropriate; Strength and sensation grossly intact; Smile symmetric, tongue midline Left Neck Incision: Clean, dry, well approximated, and well healed; No edema, erythema, ecchymosis, or drainage IMPRESSION: Stable post op; OK to gradually resume normal daily activities as tolerated!; Pt with known severe R ICA stenosis (was more severe than L ICA stenosis, however, symptoms in the fall were associated with the L ICA, so surgical intervention was recommended in left side first), which will require surgery as well; Discussed left arm pain not a symptoms or R ICA stenosis; Encouraged to monitor for s/s of TIA or stroke and, as discussed with Dr. Mares, will proceed with scheduling R CEA. PLAN: Pt will follow-up with Dr. Mares for R CEA as scheduled today. Encouraged to call with any questions, problems, concerns, or changes. The patient is currently taking a statin: Yes The patient is currently taking aspirin: Yes Alexa Schaefer APRN.CASE FINISHER Referring Provider: MARIELA KING [[id number]] Allergies As of Date: 08/21/2020 Noted Allergy Reaction PENICILLINS 05/17/2005 2 - Rash ASPIRIN 05/17/2005 8 - GI Upset Comments: GI upset Can take coated low dose asa Date Reviewed: 08/21/2020 Reviewed by: Makayla (Jaden) Kenny - Fully Assessed Reason for Visit: Post Op [174] Cmt: L CEA 07/22/20 Primary Visit Diagnosis:Bilateral carotid artery stenosis [I65.23] Other Visit Diagnosis:S/P carotid endarterectomy [Z98.890] Prescriptions as of 08/21/2020 Sig: VITAMIN B COMPLEX CAPSULE Take 1 capsule by mouth once * MULTIVITAMIN TABLET Take 1 tablet by mouth once d* TYLENOL PM ORAL Take 2 tablets by mouth daily* ASPIRIN 81 MG CHEWABLE TABLET Take 1 tablet by mouth once d* ATORVASTATIN 40 MG TABLET Take 40 mg by mouth daily at * METOPROLOL SUCCINATE ER 25 MG* Take 25 mg by mouth once tyson* ESCITALOPRAM 5 MG TABLET Take 5 mg by mouth once daily. NITROGLYCERIN 0.4 MG SUBLINGU* place 1 tablet under the tong* * PREVACID 30 MG CAPSULE,DELAYE* Take one(1) capsule daily., a* Problem List As Of Date 08/21/2020 Noted Resolved DISC DISPLACEMENT NOS [[id number]] 06/12/2005 CORONARY ATHEROSCLER UNSPEC VESSEL [I25.10] 06/12/2005 HLD (hyperlipidemia) [E78.5] 06/12/2005 Depression [F32.9] 06/12/2005 ESOPHAGEAL REFLUX [K21.9] 06/12/2005 RT BUNDLE BRANCH BLOCK [I45.10] 06/12/2005 CARDIOMEGALY [I51.7] 06/12/2005 HYPERPOTASSEMIA [E87.5] 06/12/2005 HYPERCALCEMIA [E83.52] 06/12/2005 SPINAL STENOSIS-LUMBAR [M48.061] 06/12/2005 LUMBAR DISC DISPLACEMENT [M51.26] 06/12/2005 LUMBOSACRAL SPONDYLOSIS [M47.817] 06/12/2005 SKIN CARCINOMA BACK [173.5] 12/26/2007 Multiple Thyroid Nodules [E04.2] 09/07/2009 Cholelithiasis and Cholecystitis without Obstru*12/14/2009 Stroke-like symptoms [R29.90] 02/28/2020 03/03/2020 Left carotid artery stenosis [I65.22] 02/28/2020 HTN (hypertension) [I10] 02/28/2020 COPD (chronic obstructive pulmonary disease) (H*02/28/2020 Numbness and tingling in right hand [R20.0, R20*02/28/2020 03/03/2020 Symptomatic carotid artery stenosis [I65.29] 02/28/2020 03/03/2020 COVID-19 vaccine administered [Z23] 06/18/2020 Carotid stenosis [I65.29] 07/22/2020 Disposition: Return in about 6 weeks (around 10/02/2020). Follow-up and Disposition History Recorded Letter Text Encounter Status:Closed by ALEXA SCHAEFER CNP on 08/21/20 [facility] Toi 08-21-2020 TARA Telephone (AGVASACC) YOHANARANCHO ([id number]) 1935 M Date Time Provider Department 08/21/20 LILIYA MARES During your visit today, we recorded the following information about you: Alexa Schaefer APRN.CNP, CNP 08/21/2020 11:30 AM Signed Orders signed. Thank you, Alexa Schaefer APRN.CNP [facility] 08/21/2020 2:42 PM Signed I have scheduled the patient for a Right Carotid Endarterectomy on 09/30/20 @ 9 am with an arrival time of 7 am Pretesting is 09/23/20 @ 1040 at [facility] Covid testing is 09/27/20 @ 1020am at the [facility] Post op 10/30/20 @ 10 am with Alexa Mailed out info 08/21/20 Allergies As of Date: 08/21/2020 Noted Allergy Reaction PENICILLINS 05/17/2005 2 - Rash ASPIRIN 05/17/2005 8 - GI Upset Comments: GI upset Can take coated low dose asa Date Reviewed: 08/21/2020 Reviewed by: Makayla FongMotor Coach Chauffeur) Kenny - Fully Assessed Reason for Visit: Schedule Surgery [1330] Primary Visit Diagnosis:Bilateral carotid artery stenosis [I65.23] Order(s):SURGICAL REQUEST - ELECTIVE (11/2019) [[id number]] Order #: [id number]: 1 HANDP FOR SURGERY [F4833PSU] Order #: [id number] CBC [SQCBC] Order #: [id number] FUTURE BASIC METABOLIC PNL [SQBMP] Order #: [id number] FUTURE PROTHROMBIN TIME/PT [SQPT] Order #: [id number] FUTURE PRE-PROCEDURE AND PRE-OPERATIVE COVID [SQPOCOVD] Order #: [id number] FUTURE Prescriptions as of 08/21/2020 Sig: VITAMIN B COMPLEX CAPSULE Take 1 capsule by mouth once * MULTIVITAMIN TABLET Take 1 tablet by mouth once d* TYLENOL PM ORAL Take 2 tablets by mouth daily* ASPIRIN 81 MG CHEWABLE TABLET Take 1 tablet by mouth once d* ATORVASTATIN 40 MG TABLET Take 40 mg by mouth daily at * METOPROLOL SUCCINATE ER 25 MG* Take 25 mg by mouth once tyson* ESCITALOPRAM 5 MG TABLET Take 5 mg by mouth once daily. NITROGLYCERIN 0.4 MG SUBLINGU* place 1 tablet under the tong* * PREVACID 30 MG CAPSULE,DELAYE* Take one(1) capsule daily., a* Problem List As Of Date 08/21/2020 Noted Resolved DISC DISPLACEMENT NOS [[id number]] 06/12/2005 CORONARY ATHEROSCLER UNSPEC VESSEL [I25.10] 06/12/2005 HLD (hyperlipidemia) [E78.5] 06/12/2005 Depression [F32.9] 06/12/2005 ESOPHAGEAL REFLUX [K21.9] 06/12/2005 RT BUNDLE BRANCH BLOCK [I45.10] 06/12/2005 CARDIOMEGALY [I51.7] 06/12/2005 HYPERPOTASSEMIA [E87.5] 06/12/2005 HYPERCALCEMIA [E83.52] 06/12/2005 SPINAL STENOSIS-LUMBAR [M48.061] 06/12/2005 LUMBAR DISC DISPLACEMENT [M51.26] 06/12/2005 LUMBOSACRAL SPONDYLOSIS [M47.817] 06/12/2005 SKIN CARCINOMA BACK [173.5] 12/26/2007 Multiple Thyroid Nodules [E04.2] 09/07/2009 Cholelithiasis and Cholecystitis without Obstru*12/14/2009 Stroke-like symptoms [R29.90] 02/28/2020 03/03/2020 Left carotid artery stenosis [I65.22] 02/28/2020 HTN (hypertension) [I10] 02/28/2020 COPD (chronic obstructive pulmonary disease) (H*02/28/2020 Numbness and tingling in right hand [R20.0, R20*02/28/2020 03/03/2020 Symptomatic carotid artery stenosis [I65.29] 02/28/2020 03/03/2020 COVID-19 vaccine administered [Z23] 06/18/2020 Carotid stenosis [I65.29] 07/22/2020 Encounter Status:Closed by ALEXA SCHAEFER CNP on 08/21/20 [facility] Toi 08-04-2020 CNPN Telephone (AGVASACC) RANCHO MULLER ([id number]) 1935 M Date Time Provider Department 08/04/20 ALEXA SCHAEFER (SENIOR MEDICAL TRANSCRIPTIONIST, CASE FINISHER)KRISTIACC During your visit today, we recorded the following information about you: Alexa Schaefer APRN.CNP, CNP 08/04/2020 11:05 AM Signed Received message from nursing that pt's called. She called yesterday too and left message on nursing line. Concerned that for the past 2 days, pt has awoken with severe pain from his left neck up the left side of his head. It awoke him early Monday morning and was present again this AM. Pain does not last but is excruciating while present. No headaches throughout the day are noted. reports that pt is not very concerned/alarmed, but she is. Advised will discuss with Dr. Mares when she is out of surgery. KEEGAN Cody APRN.CNP, CNP 08/04/2020 11:05 AM Signed Discussed with Dr. Mares. Thinks it's a little far out of surgery to necessitate CT scan at this time, particularly since pain subsides and does not reoccur throughout the day. Would like to know what pt's BP is, as if he is hypertensive, would need to get BP down possibly in ER depending on how high and any current symptoms. KEEGAN Cody APRN.CNP, CNP 08/04/2020 11:05 AM Signed Called and spoke with pt's . Noted that he is not having any pain at this time, and hasn't since earlier this AM. Has BP cuff at home but has not used in quite some time. Thinks they can to to PCP for BP check. Discussed that if BP is high, will need to get it down. If PCP can manage from office, OK with vascular surgery, however, if not, pt will need to go to ED. Pt's understands and agrees. Will get pt's BP checked. Alexa Schaefer APRN.CASE FINISHER Allergies As of Date: 08/04/2020 Noted Allergy Reaction PENICILLINS 05/17/2005 2 - Rash ASPIRIN 05/17/2005 8 - GI Upset Comments: GI upset Can take coated low dose asa Date Reviewed: 07/22/2020 Reviewed by: Carrie FongRn) JESSENIA Grayson - Fully Assessed Reason for Visit: Patient Update [1234] Prescriptions as of 08/04/2020 Sig: VITAMIN B COMPLEX CAPSULE Take 1 capsule by mouth once * MULTIVITAMIN TABLET Take 1 tablet by mouth once d* TYLENOL PM ORAL Take 2 tablets by mouth daily* ASPIRIN 81 MG CHEWABLE TABLET Take 1 tablet by mouth once d* ATORVASTATIN 40 MG TABLET Take 40 mg by mouth daily at * METOPROLOL SUCCINATE ER 25 MG* Take 25 mg by mouth once tyson* ESCITALOPRAM 5 MG TABLET Take 5 mg by mouth once daily. NITROGLYCERIN 0.4 MG SUBLINGU* place 1 tablet under the tong* * PREVACID 30 MG CAPSULE,DELAYE* Take one(1) capsule daily., a* Problem List As Of Date 08/04/2020 Noted Resolved DISC DISPLACEMENT NOS [[id number]] 06/12/2005 CORONARY ATHEROSCLER UNSPEC VESSEL [I25.10] 06/12/2005 HLD (hyperlipidemia) [E78.5] 06/12/2005 Depression [F32.9] 06/12/2005 ESOPHAGEAL REFLUX [K21.9] 06/12/2005 RT BUNDLE BRANCH BLOCK [I45.10] 06/12/2005 CARDIOMEGALY [I51.7] 06/12/2005 HYPERPOTASSEMIA [E87.5] 06/12/2005 HYPERCALCEMIA [E83.52] 06/12/2005 SPINAL STENOSIS-LUMBAR [M48.061] 06/12/2005 LUMBAR DISC DISPLACEMENT [M51.26] 06/12/2005 LUMBOSACRAL SPONDYLOSIS [M47.817] 06/12/2005 SKIN CARCINOMA BACK [173.5] 12/26/2007 Multiple Thyroid Nodules [E04.2] 09/07/2009 Cholelithiasis and Cholecystitis without Obstru*12/14/2009 Stroke-like symptoms [R29.90] 02/28/2020 03/03/2020 Left carotid artery stenosis [I65.22] 02/28/2020 HTN (hypertension) [I10] 02/28/2020 COPD (chronic obstructive pulmonary disease) (H*02/28/2020 Numbness and tingling in right hand [R20.0, R20*02/28/2020 03/03/2020 Symptomatic carotid artery stenosis [I65.29] 02/28/2020 03/03/2020 COVID-19 vaccine administered [Z23] 06/18/2020 Carotid stenosis [I65.29] 07/22/2020 Encounter Status:Closed by ALEXA SCHAEFER CNP on 08/06/20 Normal [facility] Basic metabolic 2000 panelon 07-23-2020 Anion gap [Moles/Vol] 9 mmol/L Normal 9-18 [facility] Comment on above: Order Comment: Speci men Type: BLOOD SPECIMEN Performed By: #### 2 4321-2 #### [facility] CLIA [id number] [address] [place] [address] Calcium [Mass/Vol] 9.0 mg/dL Normal 8.5-10.2 [facility] Comment on above: Order Comment: Speci men Type: BLOOD SPECIMEN Performed By: #### 2 4321-2 #### [facility] CLIA [id number] [address] [place] [address] Chloride [Moles/Vol] 101 mmol/L Normal 97-105 [facility] Comment on above: Order Comment: Speci men Type: BLOOD SPECIMEN Performed By: #### 2 4321-2 #### [facility] CLIA [id number] [address] [place] [address] CO2 [Moles/Vol] 24 mmol/L Normal 22-30 [facility] Comment on above: Order Comment: Speci men Type: BLOOD SPECIMEN Performed By: #### 2 4321-2 #### [facility] CLIA [id number] [address] [place] [address] Creatinine [Mass/Vol] 1.05 mg/dL Normal 0.73-1.22 [facility] Comment on above: Order Comment: Speci men Type: BLOOD SPECIMEN Performed By: #### 2 4321-2 #### [facility] CLIA [id number] [address] [place] [address] GFR/1.73 sq M.predicted MDRD (S/P/Bld) [Vol rate/Area] mL/min/{1.73_m2} Normal [facility] Comment on above: Order Comment: Speci men Type: BLOOD SPECIMEN Result Comment: >60 eGFR (Estimated GFR) Units of measure: mL/min/1.73 meters squared eGFR is derived from the reexpressed MDRD Study equation using the following parameters: serum creatinine, age, gender and race. The creatinine assay has been calibrated to be traceable to IDMS. An eGFR <60 mL/min/1.73m2 for >3 months is consistent with chronic kidney disease. Refer to KDOQI guidelines for clinical interpretation. In patients with unstable renal function, e.g. those with acute kidney injury, the eGFR may not accurately reflect actual GFR. Performed By: #### 2 4321-2 #### [facility] CLIA [id number] [address] [place] [address] Glucose [Mass/Vol] 135 mg/dL High 74-99 [facility] Comment on above: Order Comment: Speci men Type: BLOOD SPECIMEN Result Comment: The [place] Diabetes Association (ADA) provides guidance for cutoff values for fasting glucose and random glucose. The ADA defines fasting as no caloric intake for at least 8 hours. Fasting plasma glucose results between 100 to 125 mg/dL indicate increased risk for diabetes (prediabetes). Fasting plasma glucose results greater than or equal to 126 mg/dL meet the criteria for diagnosis of diabetes. In the absence of unequivocal hyperglycemia, results should be confirmed by repeat testing. In a patient with classic symptoms of hyperglycemia or hyperglycemic crisis, random plasma glucose results greater than or equal to 200 mg/dL meet the criteria for diagnosis of diabetes. Reference: Standards of Medical Care in Diabetes 2016, [place] [employer] Association. Diabetes Care. 2016.39(Suppl 1). Performed By: #### 2 4321-2 #### [facility] CLIA [id number] [address] [place] [address] Potassium [Moles/Vol] 4.7 mmol/L Normal 3.7-5.1 [facility] Comment on above: Order Comment: Speci men Type: BLOOD SPECIMEN Performed By: #### 2 4321-2 #### [facility] CLIA [id number] [address] [place] [address] Sodium [Moles/Vol] 134 mmol/L Low 136-144 [facility] Comment on above: Order Comment: Speci men Type: BLOOD SPECIMEN Performed By: #### 2 4321-2 #### [facility] CLIA [id number] [address] [place] [address] Urea nitrogen [Mass/Vol] 19 mg/dL Normal 9-24 [facility] Comment on above: Order Comment: Speci men Type: BLOOD SPECIMEN Performed By: #### 2 4321-2 #### [facility] CLIA [id number] [address] [place] [address] [facility] [address] [facility] HNO ID: [id number] Author: Joelle (Rn) JESSENIA Marie Service: ? Author Type: Registered Nurse Type: Care Mgt Initial Assessment Filed: 07/23/2020 11:13 AM Note Text: CARE MANAGEMENT: ASSESSMENT AND DISCHARGE PLAN SERVICE DATE: July 23, 2020 SERVICE TIME: 11:11 AM PRIMARY CARE PHYSICIAN: Mariela King MD ADMISSION STATUS: Inpatient Needs Prior to Discharge: Discharge Prescriptions MEDICAL: [employer] MED[employer]ARE PPO Patient/[employer] Stated Goals: To return home to life as it was;To be cured/healed Health Insurance: [employer] Medicare Health Issues Impacting Discharge Plan: Newly diagnosed Newly Diagnosed: CEA Last Discharge Date: 03/03/20 Is this Within the Past 30 days? Last discharge within 30 days: No Advance Directive: Current Advance Directive: Health Care Power of Overhead Irrigator;Living Will In Chart: No Manager Community Relations Attempted to Assist with AD Completion: Yes Action: (LW on chart. Enc to bring POA to f/u appt to have it scanned into system) Health LiteracyHow often do you need to have someone help you when you read instructions, pamphlets, or other written material from your doctor or pharmacy? : 1 - Never How confident are you filling out medical forms by yourself?: 1 - Extremely If Patient scores > 3 on either question, the following interventions were put into place:: Patient did not score > 3 on either question. Baseline Mental Status Prior to this Illness what was the patient's Baseline Mental Status?: Alert AND Oriented Prior to this illness, has anyone described the patient having any of the following behaviors?: Not Applicable Relationship of the informant to the patient:: Self Functional Status: Independent Equipment Prior to Admission: Cane Has the Patient Been in a Senior Living Facility in the Past 30 days?: No SOCIAL: Living Arrangements: Home Lives With: Spouse Financial Resources: Retired Primary Contact: Extended Emergency Contact Information Primary Emergency Contact: LEA MULLER Address: [address] [place] [address] Mobile Relation: Spouse Supportive Patient Contact:: Yes Contact Resources: Family Family Name/Phone: Lea Caregiver AssessmentCaregiver is ready, willing and able to meet the patient's needs as recommended by the inter-professional team:: Yes Does the patient have an acute stroke diagnosis, or has the patient had a stroke during this admission?: No Patient's transition needs and plan for meeting these needs: home, self care, assist as needed Patient's perception of need for this admission: carotid surgery Medication Adherance I am convinced of the importance of my prescription medication: 0 - Agree Completely I worry that my prescription medication will do more harm than good to me : 0 - Disagree Completely I feel financially burdened by my [id number] expenses for my prescription medication:: 0 - Disagree Completely Risk Score: 0 Patient is categorized as: Low risk < 2 Are you interested in bedside delivery of your medications? No Is Patient Psychosocially Complex?: No ASSESSMENT AND PLAN: Medical Needs: Medical Needs: None Psychosocial Needs: Psychosocial Needs: None FREEDOM OF CHOICE EXPLAINED: [place] of Choice Given: No Reason Not Given: No placements necessary POTENTIAL TRANSITION PLANS Home Met with pt and , explained CM role. 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 Amb with cane when out of the home. Drives. [place]. No transitional care needs identified at this time. [facility] [place]. SIGNATURE: Joelle Marie RN PATIENT NAME: Rancho Muller DATE: July 23, 2020 TIME: 11:11 AM PAGER/CONTACT #: [phone] Normal [facility] CBC W Auto Differential pane l (Bld)on 07-23-2020 Basophils (Bld) [#/Vol] 0.03 10*3/uL Normal <0.11 [facility] Comment on above: Order Comment: Speci men Type: BLOOD SPECIMEN Performed By: #### 2 4321-2, , 2776-05 #### [facility] CLIA [id number] [address] [place] [address] Basophils/100 WBC (Bld) 0.2 % Normal [facility] Comment on above: Order Comment: Speci men Type: BLOOD SPECIMEN Performed By: #### 2 4321-2, , 2776-05 #### [facility] CLIA [id number] [address] [place] [address] Differential cell count method Nom (Bld) Auto Normal [facility] Comment on above: Order Comment: Speci men Type: BLOOD SPECIMEN Performed By: #### 2 4321-2, , 2776-05 #### [facility] CLIA [id number] [address] [place] [address] Eosinophils (Bld) [#/Vol] 10*3/uL Normal <0.46 [facility] Comment on above: Order Comment: Speci men Type: BLOOD SPECIMEN Performed By: #### 2 4321-2, , 2776-05 #### [facility] CLIA [id number] [address] [place] [address] Eosinophils/100 WBC (Bld) 0.0 % Normal [facility] Comment on above: Order Comment: Speci men Type: BLOOD SPECIMEN Performed By: #### 2 4321-2, , 2776-05 #### [facility] CLIA [id number] [address] [place] [address] Erythrocyte distribution width (RBC) [Ratio] 13.3 % Normal 11.5-15.0 [facility] Comment on above: Order Comment: Speci men Type: BLOOD SPECIMEN Performed By: #### 2 4321-2, , 2776-05 #### [facility] CLIA [id number] [address] [place] [address] Hematocrit (Bld) [Volume fraction] 36.5 % Low 39.0-51.0 [facility] Comment on above: Order Comment: Speci men Type: BLOOD SPECIMEN Performed By: #### 2 4321-2, , 2776-05 #### [facility] CLIA [id number] [address] [place] [address] Hemoglobin (Bld) [Mass/Vol] 12.7 g/dL Low 13.0-17.0 [facility] Comment on above: Order Comment: Speci men Type: BLOOD SPECIMEN Performed By: #### 2 4320-2, , 2776-05 #### [facility] CLIA [id number] [address] [place] [address] IMMATURE GRAN % 0.7 % Normal [facility] Comment on above: Order Comment: Speci men Type: BLOOD SPECIMEN Performed By: #### 2 4320-2, , 2776-05 #### [facility] CLIA [id number] [address] [place] [address] IMMATURE GRAN ABS 0.12 k/uL High <0.10 [facility] Comment on above: Order Comment: Speci men Type: BLOOD SPECIMEN Performed By: #### 2 4321-2, , 2776-05 #### [facility] CLIA [id number] [address] [place] [address] Lymphocytes (Bld) [#/Vol] 1.28 10*3/uL Normal 1.00-4.00 [facility] Comment on above: Order Comment: Speci men Type: BLOOD SPECIMEN Performed By: #### 2 1-2, , 2776-05 #### [facility] CLIA [id number] [address] [place] [address] Lymphocytes/100 WBC (Bld) 7.0 % Normal [facility] Comment on above: Order Comment: Speci men Type: BLOOD SPECIMEN Performed By: #### 2 1-2, , 2776-05 #### [facility] CLIA [id number] 1 [place] [address] MCH (RBC) [Entitic mass] 31.2 pg Normal 26.0-34.0 [facility] Comment on above: Order Comment: Speci men Type: BLOOD SPECIMEN Performed By: #### 2 4320-2, , 2776-05 #### [facility] CLIA [id number] 1 [place] [address] MCHC (RBC) [Mass/Vol] 34.8 g/dL Normal 30.5-36.0 [facility] Comment on above: Order Comment: Speci men Type: BLOOD SPECIMEN Performed By: #### 2 4320-2, , 2776-05 #### [facility] CLIA [id number] 1 [place] [address] MCV (RBC) [Entitic vol] 89.7 fL Normal 80.0-100.0 [facility] Comment on above: Order Comment: Speci men Type: BLOOD SPECIMEN Performed By: #### 2 4320-2, , 2776-05 #### [facility] CLIA [id number] 1 [place] [address] Monocytes (Bld) [#/Vol] 1.43 10*3/uL High <0.87 [facility] Comment on above: Order Comment: Speci men Type: BLOOD SPECIMEN Performed By: #### 2 1-2, , 2776-05 #### [facility] CLIA [id number] 1 [place] [address] Monocytes/100 WBC (Bld) 7.8 % Normal [facility] Comment on above: Order Comment: Speci men Type: BLOOD SPECIMEN Performed By: #### 2 4320-2, , 2776-05 #### [facility] CLIA [id number] 1 [place] [address] Neutrophils (Bld) [#/Vol] 15.52 10*3/uL High 1.45-7.50 [facility] Comment on above: Order Comment: Speci men Type: BLOOD SPECIMEN Performed By: #### 2 4321-2, , 2776-05 #### [facility] CLIA [id number] 1 [place] [address] Neutrophils/100 WBC (Bld) 84.3 % Normal [facility] Comment on above: Order Comment: Speci men Type: BLOOD SPECIMEN Performed By: #### 2 4321-2, , 2776-05 #### [facility] CLIA [id number] 1 [place] [address] Nucleated RBC (Bld) [#/Vol] 10*3/uL Normal <0.01 [facility] Comment on above: Order Comment: Speci men Type: BLOOD SPECIMEN Performed By: #### 2 4321-2, , 2776-05 #### [facility] CLIA [id number] 1 [place] [address] Nucleated RBC/100 WBC (Bld) [Ratio] 0.0 /100 WBC Normal 0.0 [facility] Comment on above: Order Comment: Speci men Type: BLOOD SPECIMEN Performed By: #### 2 4321-2, , 2776-05 #### [facility] CLIA [id number] 1 [place] [address] Platelet mean volume (Bld) [Entitic vol] 9.2 fL Normal 9.0-12.7 [facility] Comment on above: Order Comment: Speci men Type: BLOOD SPECIMEN Performed By: #### 2 4321-2, , 2776-05 #### [facility] CLIA [id number] 1 [place] [address] Platelets (Bld) [#/Vol] 200 10*3/uL Normal 150-400 [facility] Comment on above: Order Comment: Speci men Type: BLOOD SPECIMEN Performed By: #### 2 4321-2, 45131-8, 7-1 #### [facility] CLIA [id number] 1 [place] [address] RBC (Bld) [#/Vol] 4.07 10*6/uL Low 4.20-6.00 [facility] Comment on above: Order Comment: Speci men Type: BLOOD SPECIMEN Performed By: #### 2 4321-2, 74158-5, 2776-1 #### [facility] CLIA [id number] 1 [place] [address] WBC (Bld) [#/Vol] 18.38 10*3/uL High 3.70-11.00 [facility] Comment on above: Order Comment: Speci men Type: BLOOD SPECIMEN Performed By: #### 2 4321-2, 20943-0, 2776-1 #### [facility] CLIA [id number] 1 [place] [address] CNDSon 07-23-2020 [facility] HNO ID: [id number] Author: Desmond Peters DO Service: General Surgery Author Type: Resident Type: Discharge Summary Filed: 07/23/2020 12:39 PM Note Text: Attestation signed by Liliya Mares at 07/23/2020 3:38 PM Attending Note I personally saw and examined the patient. I reviewed the resident's note. I agree with the resident's assessment and plan unless otherwise noted. Signature: Liliya Mares MD Date: 07/23/2020 Time: 3:38 PM DISCHARGE NOTE (Patient Admitted Less than 48 Hours) SERVICE DATE: 07/23/2020 SERVICE TIME: 12:39 PM ADMISSION DATE: 07/22/2020 DISCHARGE DISPOSITION: Home/Self Care DIET: Cardiac ACTIVITY AFTER DISCHARGE: Resume pre-hospital activity No lifting restrictions May bathe and shower No walking restrictions May use stairs Resume pre-hospital activity with no lifting or pounding exercises FOLLOW UP CARE REQUIRED: Dr Mares DISCHARGE MEDICATIONS (ONLY ACTIVATE WHEN READY TO DISCHARGE): Current Discharge Medication List START taking these medications traMADol (ULTRAM) 50 mg Take 50 mg by mouth every 8 hours as needed. Qty: 20 tablet Refills: 0 Associated Diagnoses:Bilateral carotid artery stenosis CONTINUE these medications which have NOT CHANGED vitamin b complex 1 capsule Take 1 capsule by mouth once daily. acetaminophen/diphenhy dramine (TYLENOL PM ORAL) 2 tablets Take 2 tablets by mouth daily at bedtime. atorvastatin (LIPITOR) 40 mg Take 40 mg by mouth daily at bedtime. metoprolol succinate ER (TOPROL XL) 25 mg Take 25 mg by mouth once daily. escitalopram oxalate (LEXAPRO) 5 mg Take 5 mg by mouth once daily. multivitamin 1 tablet Take 1 tablet by mouth once daily. aspirin 81 mg Take 81 mg by mouth once daily. Qty: 30 tablet Refills: 0 nitroglycerin sublingual (NITROQUICK) 0.[address] 1 tablet under the tongue if needed every 5 TO 15 MINUTES for chest pain for 3 doses Refills: 0 lansoprazole(PREVACID 30 MG CAP) Take one(1) capsule daily., as needed Refills: 0 FINAL DIAGNOSIS: Carotid stenosis SIGNATURE: Desmond Peters DO PATIENT NAME: Rancho Muller DATE: July 23, 2020 TIME: 12:39 PM Normal [facility] ANES POSTPROC EVALon 021 ANES POSTPROC EVAL HNO ID: [id number] Author: Fermin Foy Service: Anesthesiology Author Type: Physician Type: Anesthesia Postprocedure Evaluation Filed: 07/22/2020 3:43 PM Note Text: POST ANESTHESIA EVALUATION NOTE : 1935 Procedure Summary Date: 07/22/20 Room / Location: MD OR [address] [place] [address] OR Anesthesia Start: 832 Anesthesia Stop: 1212 Procedure: LEFT CAROTID ENDARTERECTOMY (Left Neck) Diagnosis: Bilateral carotid artery stenosis (Bilateral carotid artery stenosis [I65.23]) Surgeons: Liliya Mares Responsible Provider: Fermin Foy Anesthesia Type: general ASA Status: 4 Anesthesia Type: general Last vitals Vitals Value Taken Time BP 124/61 07/22/20 1541 Temp 36.2 ?C (97.2 ?F) 07/22/20 1515 Pulse 78 07/22/20 1540 Resp 13 07/22/20 1540 SpO2 97 % 07/22/20 1540 Vitals shown include unvalidated device data. Post Anesthesia Patient Status Patient Evaluation: ICU. PACU/ICU Patient Condition: stable. Anticipated Disposition: ICU planned admission. Neurological Status: aware and responsive. Pulmonary Status: breathing comfortably on supplemental oxygen Airway Control: returned to baseline unsupported. Cardiovascular Status: stable. Pain Management: clinically adequate Postoperative Hydration: acceptable. Intraoperative Events: no significant anesthesia events Post Operative Nausea/Vomiting Status: no significant post operative nausea or vomiting Anesthetic Observations: Recommendation: continue current plan of care and further care per PACU/ICU/floor team. No complications documented. SIGNATURE: Fermin Foy MD PATIENT NAME: Rancho Muller DATE: July 22, 2020 TIME: 3:41 PM CSN: [id number] [facility] ANES PRE-OPon 07-22-2020 ANES PRE-OP HNO ID: [id number] Author: Fermin Foy Service: Anesthesiology Author Type: Physician Type: Anesthesia Preprocedure Evaluation Filed: 07/22/2020 7:55 AM Note Text: ANESTHESIOLOGY DAY OF SURGERY NOTE : 1935 Procedure(s) (LRB): LEFT CAROTID ENDARTERECTOMY (Left) Surgeon(s): Liliya Mares Estimated body mass index is 29.16 kg/m? as calculated from the following: Height as of 07/15/20: 182.9 cm (6'). Weight as of 07/15/20: 97.5 kg (215 lb). Most recent hematocrit and potassium results: Hematocrit 42.2 07/15/2020 Potassium 4.7 07/15/2020 Relevant Problems CARDIO (+) Carotid stenosis (+) Coronary atherosclerosis of unspecified type of vessel, washoe or graft (+) HTN (hypertension) (+) Left carotid artery stenosis (+) Right bundle branch block GI (+) Esophageal reflux PULMONARY (+) COPD (chronic obstructive pulmonary disease) (HCC) I - PHYSICAL EVALUATION AIRWAY Patient intubated: No. Mallampati: III. TM distance: >3 FB. Neck ROM: limited extension. Mouth opening: adequate. DENTAL Dental findings: edentulous. Additional exam findings: no II - ANESTHESIA PLAN ASA Score: 4 Anesthetic Plan: general Airway type: ETT The patient is a current smoker. NPO Status: adequate Administration of chronic beta ignacio medication planned. (took this am) Monitoring plan: invasive hemodynamic monitoring. Monitoring method: arterial LinePostoperative analgesic plan: parenteral or oral opioids, go to ICU and per surgical service. Anesthetic Risks, Benefits, Alternatives, Personnel Discussed. Consent obtained from: patient.Patient / Surrogate agrees to blood products: Yes Significant changes in the patient condition since the History and Physical, not otherwise documented in primary service progress note: no. Potential Anesthesia issues that may suggest increased risk of complications or contraindication to planned procedure: none. Vitals Value Taken Time BP 144/55 07/22/20 0705 Pulse 57 07/22/20 0705 Resp 16 07/22/20 0705 Temp 35.6 ?C (96.1 ?F) 07/22/20 0705 SpO2 96 % 07/22/20 0705 Facility-Administered Medications as of 07/22/2020 Medication Dose Route Frequency - lidocaine 10 mg/mL (1 %) 1-2 mg injection (XYLOCAINE) 0.1-0.2 mL INTRADERMAL PRN - clindamycin iv piggyback 900 mg in D5W 50 mL (CLEOCIN) 900 mg INTRAVENOUS Pre-Op Once Outpatient Medications as of 07/22/2020 Medication Sig - vitamin b complex capsule Take 1 capsule by mouth once daily. - acetaminophen/diphenhy dramine (TYLENOL PM ORAL) Take 2 tablets by mouth daily at bedtime. - atorvastatin (LIPITOR) 40 mg tablet Take 40 mg by mouth daily at bedtime. - metoprolol succinate ER (TOPROL XL) 25 mg 24 hr tablet Take 25 mg by mouth once daily. - escitalopram oxalate (LEXAPRO) 5 mg tablet Take 5 mg by mouth once daily. - multivitamin tablet Take 1 tablet by mouth once daily. - aspirin 81 mg chewable tablet Take 1 tablet by mouth once daily. - nitroglycerin sublingual (NITROQUICK) 0.[address] 1 tablet under the tongue if needed every 5 TO 15 MINUTES for chest pain for 3 doses - lansoprazole(PREVACID 30 MG CAP) Take one(1) capsule daily., as needed I have interviewed and examined the patient. I have reviewed the medical record and/or the pre-anesthesia evaluation, pertinent labs, and test results. This contains updated information obtained within 48 hours of Surgery/Procedure. SIGNATURE: Fermin Foy MD PATIENT NAME: Rancho Muller DATE: July 22, 2020 TIME: 7:51 AM CSN: [id number] [facility] BRIEF OP NOTon 07-22-2020 BRIEF OP NOT HNO ID: [id number] Author: Antonette Whipple Service: General Surgery Author Type: Resident Type: Brief Op Note Filed: 07/22/2020 11:24 AM Note Text: Attestation signed by Liliya Mares at 07/22/2020 11:51 AM Attending Note I personally saw and examined the patient. I reviewed the resident's note. I agree with the resident's assessment and plan unless otherwise noted. Signature: Liliya Mares MD Date: 07/22/2020 Time: 11:51 AM BRIEF OPERATIVE / PROCEDURE NOTE LOG ID: [id number] SURGERY/PROCEDURE DATE: 07/22/2020 INCISION/PROCEDURE START TIME: 9:27 AM INCISION CLOSE/PROCEDURE END TIME: SURGEON(S)/PROCEDURALI ST(S) AND SYSTEMS ENG(S): Surgeon(s) and Role: * Liliya Mares - Primary * Antonette Whipple - Resident - Assisting * Mark Hutson - Physician [employer] Claims Support Specialist: Shelly Fong) [employer]; Fermin Fong) SA [employer] SURGERY/PROCEDURE(S): Procedure(s) and Anesthesia Type: * LEFT CAROTID ENDARTERECTOMY - General ANESTHESIA: General FINDINGS: 1. Significant plaque in carotid bulb 2. Shunt placed for minimal EEG changes, resolved with placement 3. Adequate doppler signal in common, internal, and external carotid upon completion of endarterectomy ESTIMATED BLOOD LOSS: 50 mls SPECIMENS: carotid plaque COMPLICATIONS: None PRE-OP/PRE-PROCEDURE DIAGNOSIS: Left common carotid stenosis POST-OP/POST-PROCEDURE DIAGNOSIS: Left common carotid stenosis SIGNATURE: Antonette Whipple MD PATIENT NAME: Rancho Muller DATE: July 22, 2020 TIME: 11:22 AM PAGER/CONTACT #: Normal [facility] Basic metabolic 2000 panelon 07-22-2020 Anion gap [Moles/Vol] 7 mmol/L Low 9-18 [facility] Comment on above: Order Comment: Speci men Type: BLOOD SPECIMEN Performed By: #### 2 4321-2, , 2776-05 #### [facility] CLIA [id number] 1 [place] [address] Calcium [Mass/Vol] 8.7 mg/dL Normal 8.5-10.2 [facility] Comment on above: Order Comment: Speci men Type: BLOOD SPECIMEN Performed By: #### 2 4321-2, , 2776-05 #### [facility] CLIA [id number] 1 [place] [address] Chloride [Moles/Vol] 106 mmol/L High 97-105 [facility] Comment on above: Order Comment: Speci men Type: BLOOD SPECIMEN Performed By: #### 2 4321-2, , 2776-05 #### [facility] CLIA [id number] 1 [place] [address] CO2 [Moles/Vol] 24 mmol/L Normal 22-30 [facility] Comment on above: Order Comment: Speci men Type: BLOOD SPECIMEN Performed By: #### 2 4321-2, , 2776-05 #### [facility] CLIA [id number] 1 [place] [address] Creatinine [Mass/Vol] 0.95 mg/dL Normal 0.73-1.22 [facility] Comment on above: Order Comment: Speci men Type: BLOOD SPECIMEN Performed By: #### 2 4321-2, , 2776-05 #### [facility] CLIA [id number] 1 [place] [address] GFR/1.73 sq M.predicted MDRD (S/P/Bld) [Vol rate/Area] mL/min/{1.73_m2} Normal [facility] Comment on above: Order Comment: Speci men Type: BLOOD SPECIMEN Result Comment: >60 eGFR (Estimated GFR) Units of measure: mL/min/1.73 meters squared eGFR is derived from the reexpressed MDRD Study equation using the following parameters: serum creatinine, age, gender and race. The creatinine assay has been calibrated to be traceable to IDMS. An eGFR <60 mL/min/1.73m2 for >3 months is consistent with chronic kidney disease. Refer to KDOQI guidelines for clinical interpretation. In patients with unstable renal function, e.g. those with acute kidney injury, the eGFR may not accurately reflect actual GFR. Performed By: #### 2 4321-2, , 2776-05 #### [facility] CLIA [id number] 1 [place] [address] Glucose [Mass/Vol] 128 mg/dL High 74-99 [facility] Comment on above: Order Comment: Speci men Type: BLOOD SPECIMEN Result Comment: The [place] Diabetes Association (ADA) provides guidance for cutoff values for fasting glucose and random glucose. The ADA defines fasting as no caloric intake for at least 8 hours. Fasting plasma glucose results between 100 to 125 mg/dL indicate increased risk for diabetes (prediabetes). Fasting plasma glucose results greater than or equal to 126 mg/dL meet the criteria for diagnosis of diabetes. In the absence of unequivocal hyperglycemia, results should be confirmed by repeat testing. In a patient with classic symptoms of hyperglycemia or hyperglycemic crisis, random plasma glucose results greater than or equal to 200 mg/dL meet the criteria for diagnosis of diabetes. Reference: Standards of Medical Care in Diabetes 2016, [place] Diabetes Association. Diabetes Care. 2016.39(Suppl 1). Performed By: #### 2 1-2, , 2776-05 #### [facility] CLIA [id number] 1 [place] [address] Potassium [Moles/Vol] 4.3 mmol/L Normal 3.7-5.1 [facility] Comment on above: Order Comment: Speci men Type: BLOOD SPECIMEN Performed By: #### 2 4320-2, , 2776-05 #### [facility] CLIA [id number] [address] [place] [address] Sodium [Moles/Vol] 137 mmol/L Normal 136-144 [facility] Comment on above: Order Comment: Speci men Type: BLOOD SPECIMEN Performed By: #### 2 4320-2, , 2776-05 #### [facility] CLIA [id number] [address] [place] [address] Urea nitrogen [Mass/Vol] 15 mg/dL Normal - [facility] Comment on above: Order Comment: Speci men Type: BLOOD SPECIMEN Performed By: #### 2 1-2, , 2776-05 #### [facility] CLIA [id number] 1 [place] [address] CBC W Auto Differential pane l (Bld)on 07-22-2020 Basophils (Bld) [#/Vol] 10*3/uL Normal <0.11 [facility] Comment on above: Order Comment: Speci men Type: BLOOD SPECIMEN Performed By: #### 2 1-2, , 2776-05 #### [facility] CLIA [id number] 1 [place] [address] Basophils/100 WBC (Bld) 0.1 % Normal [facility] Comment on above: Order Comment: Speci men Type: BLOOD SPECIMEN Performed By: #### 2 4321-2, , 2776-05 #### [facility] CLIA [id number] [address] [place] [address] Differential cell count method Nom (Bld) Auto Normal [facility] Comment on above: Order Comment: Speci men Type: BLOOD SPECIMEN Performed By: #### 2 4321-2, , 2776-05 #### [facility] CLIA [id number] 1 [place] [address] Eosinophils (Bld) [#/Vol] 10*3/uL Normal <0.46 [facility] Comment on above: Order Comment: Speci men Type: BLOOD SPECIMEN Performed By: #### 2 4320-2, , 2776-05 #### [facility] CLIA [id number] [address] [place] [address] Eosinophils/100 WBC (Bld) 0.0 % Normal [facility] Comment on above: Order Comment: Speci men Type: BLOOD SPECIMEN Performed By: #### 2 4320-2, , 2776-05 #### [facility] CLIA [id number] [address] [place] [address] Erythrocyte distribution width (RBC) [Ratio] 13.2 % Normal 11.5-15.0 [facility] Comment on above: Order Comment: Speci men Type: BLOOD SPECIMEN Performed By: #### 2 1-2, , 2776-05 #### [facility] CLIA [id number] [address] [place] [address] Hematocrit (Bld) [Volume fraction] 39.5 % Normal 39.0-51.0 [facility] Comment on above: Order Comment: Speci men Type: BLOOD SPECIMEN Performed By: #### 2 4321-2, , 2776-05 #### [facility] CLIA [id number] [address] [place] [address] Hemoglobin (Bld) [Mass/Vol] 13.7 g/dL Normal 13.0-17.0 [facility] Comment on above: Order Comment: Speci men Type: BLOOD SPECIMEN Performed By: #### 2 4321-2, , 2776-05 #### [facility] CLIA [id number] [address] [place] [address] IMMATURE GRAN % 0.3 % Normal [facility] Comment on above: Order Comment: Speci men Type: BLOOD SPECIMEN Performed By: #### 2 4321-2, , 2776-05 #### [facility] CLIA [id number] [address] [place] [address] IMMATURE GRAN ABS 0.03 k/uL Normal <0.10 [facility] Comment on above: Order Comment: Speci men Type: BLOOD SPECIMEN Performed By: #### 2 1-2, , 2776-05 #### [facility] CLIA [id number] [address] [place] [address] Lymphocytes (Bld) [#/Vol] 0.71 10*3/uL Low 1.00-4.00 [facility] Comment on above: Order Comment: Speci men Type: BLOOD SPECIMEN Performed By: #### 2 4321-2, , 2776-05 #### [facility] CLIA [id number] [address] [place] [address] Lymphocytes/100 WBC (Bld) 7.9 % Normal [facility] Comment on above: Order Comment: Speci men Type: BLOOD SPECIMEN Performed By: #### 2 4321-2, , 2776-05 #### [facility] CLIA [id number] [address] [place] [address] MCH (RBC) [Entitic mass] 31.6 pg Normal 26.0-34.0 [facility] Comment on above: Order Comment: Speci men Type: BLOOD SPECIMEN Performed By: #### 2 4321-2, , 2777-1 #### [facility] CLIA [id number] [address] [place] [address] MCHC (RBC) [Mass/Vol] 34.7 g/dL Normal 30.5-36.0 [facility] Comment on above: Order Comment: Speci men Type: BLOOD SPECIMEN Performed By: #### 2 4321-2, , 2776-05 #### [facility] CLIA [id number] [address] [place] [address] MCV (RBC) [Entitic vol] 91.2 fL Normal 80.0-100.0 [facility] Comment on above: Order Comment: Speci men Type: BLOOD SPECIMEN Performed By: #### 2 4320-2, , 2776-05 #### [facility] CLIA [id number] [address] [place] [address] Monocytes (Bld) [#/Vol] 0.21 10*3/uL Normal <0.87 [facility] Comment on above: Order Comment: Speci men Type: BLOOD SPECIMEN Performed By: #### 2 4320-2, , 2776-05 #### [facility] CLIA [id number] [address] [place] [address] Monocytes/100 WBC (Bld) 2.3 % Normal [facility] Comment on above: Order Comment: Speci men Type: BLOOD SPECIMEN Performed By: #### 2 4321-2, , 2776-05 #### [facility] CLIA [id number] [address] [place] [address] Neutrophils (Bld) [#/Vol] 8.03 10*3/uL High 1.45-7.50 [facility] Comment on above: Order Comment: Speci men Type: BLOOD SPECIMEN Performed By: #### 2 4321-2, , 2776-05 #### [facility] CLIA [id number] [address] [place] [address] Neutrophils/100 WBC (Bld) 89.4 % Normal [facility] Comment on above: Order Comment: Speci men Type: BLOOD SPECIMEN Performed By: #### 2 4321-2, , 2776-05 #### [facility] CLIA [id number] [address] [place] [address] Nucleated RBC (Bld) [#/Vol] 10*3/uL Normal <0.01 [facility] Comment on above: Order Comment: Speci men Type: BLOOD SPECIMEN Performed By: #### 2 4321-2, , 2776-05 #### [facility] CLIA [id number] [address] [place] [address] Nucleated RBC/100 WBC (Bld) [Ratio] 0.0 /100 WBC Normal 0.0 [facility] Comment on above: Order Comment: Speci men Type: BLOOD SPECIMEN Performed By: #### 2 4320-2, , 2776-05 #### [facility] CLIA [id number] [address] [place] [address] Platelet mean volume (Bld) [Entitic vol] 9.0 fL Normal 9.0-12.7 [facility] Comment on above: Order Comment: Speci men Type: BLOOD SPECIMEN Performed By: #### 2 4321-2, , 2776-05 #### [facility] CLIA [id number] [address] [place] [address] Platelets (Bld) [#/Vol] 149 10*3/uL Low 150-400 [facility] Comment on above: Order Comment: Speci men Type: BLOOD SPECIMEN Performed By: #### 2 4321-2, , 2776-05 #### [facility] CLIA [id number] [address] [place] [address] RBC (Bld) [#/Vol] 4.33 10*6/uL Normal 4.20-6.00 [facility] Comment on above: Order Comment: Speci men Type: BLOOD SPECIMEN Performed By: #### 2 4321-2, , 2776-05 #### [facility] CLIA [id number] [address] [place] [address] WBC (Bld) [#/Vol] 8.99 10*3/uL Normal 3.70-11.00 [facility] Comment on above: Order Comment: Speci men Type: BLOOD SPECIMEN Performed By: #### 2 4321-2, 99931-1, 2777-1 #### [facility] CLIA [id number] [address] [place] [id number] OPERATIVE NOon 07-22-2020 OPERATIVE NO HNO ID: [id number] Author: Liliya Mares Service: Vascular Surgery Author Type: Physician Type: Operative Report Filed: 07/23/2020 3:36 PM Note Text: [facility] - Operative Report RANCHO MULLER : 1935 AGE: 84. SEX: M PATIENT TYPE: I HOSP SVC: MIKI LOCATION: [id number] ATTENDING PHYSICIAN: LILIYA MARES CSN NUMBER: [id number] DATE OF SURGERY/PROCEDURE: 07/22/2020 INCISION/PROCEDURE START TIME: 9:27 AM INCISION CLOSE/PROCEDURE END TIME: 11:27 AM PREOPERATIVE DIAGNOSIS: Carotid stenosis. POSTOPERATIVE DIAGNOSIS: Carotid stenosis. SURGEON: Liliya Mares MD SYSTEMS ENG: Antonette Whipple MD. SURGERY/PROCEDURE: Left carotid endarterectomy. ANESTHESIA: General. DESCRIPTION OF PROCEDURE: Patient was seen in the preoperative area. Risks and benefits of procedure were reviewed with the patient. He was consented for the procedure and brought back to the operating room where general anesthesia was induced. He was prepped and draped in sterile fashion. Appropriate preoperative antibiotics were given at the time of induction. Incision was made over the anterior border of the sternocleidomastoid and dissected down through subcutaneous tissue and platysma. The sternocleidomastoid was identified and retracted laterally. Internal jugular vein was also identified and retracted laterally. Facial vein was suture ligated and transected. The carotid artery was identified in normal anatomic position. This was isolated proximally over the common carotid and distally over the internal and external carotid arteries. Vessel loops were placed over these arteries. Patient was then bolused with heparin. ACTs were monitored throughout the case. When ACT was greater than 300, the internal carotid artery was clamped followed by the common carotid artery. Patient was also undergoing EEG monitoring throughout the case. EEG noted to have some slowing during clamping of the internal carotid artery and therefore decision was made to shunt during this procedure. The clamps were removed while the shunt was repaired. When the shunt was ready, the internal carotid was clamped followed by the common and external carotid arteries. Arteriotomy was made. [place] shunt was placed within the common carotid artery and opened to verify a pulsatile flow. This was then placed within the internal carotid artery. Patency was verified with a Doppler. The endarterectomy was then performed in standard fashion. Patch angioplasty was then performed using a bovine pericardial patch. This was sutured with a running 6-0 Prolene stitch. Prior to completion of the anastomosis, the shunt was removed first from the internal and then from the common carotid artery. The patch was then completed. The common carotid was then opened followed by the external and internal carotid artery. Hemostasis was then achieved within the wound. Heparin was reversed with protamine. Incision was then closed with interrupted Vicryl sutures within the platysma and running 4-0 dyed Monocryl in the skin. Patient tolerated the procedure well. He will be sent to the ICU for further monitoring. Please see the EEG report for full details of findings. Liliya Mares MD LM:[id number] /[id number] Normal [facility] SURGICAL PATHOLOGYon CASE REPORT Normal [facility] Comment on above: Order Comment: Speci men Type: BLOOD SPECIMEN Result Comment: Surg ical Pathology Report Case: [id number] Authorizing Provider: Liliya Mares Collected: 07/22/2020 10:23 AM Ordering Location: [place] [facility] Received: 07/22/2020 12:44 PM Pathologist: Radha Jimenez Specimen: PLAQUE, PLAQUE FROM LEFT CAROTID ARTERY Performed By: #### 2 4321-2, 91506-2, 2777-1 #### [facility] CLIA [id number] [address] [place] [address] FINAL DIAGNOSIS Normal [facility] Comment on above: Order Comment: Speci men Type: BLOOD SPECIMEN Result Comment: Subm itted as (plaque), endarterectomy - Portion of arterial intima with calcific atherosclerosis. Performed By: #### 2 4321-2, 47852-3, 2776- #### [facility] CLIA [id number] [address] [place] [address] FINAL PERFORMING LAB Normal [facility] Comment on above: Order Comment: Speci men Type: BLOOD SPECIMEN Result Comment: Diag nostic interpretation performed at [facility], [address] [place] [address] CLIA# [id number] Puff Ironer: Mariela Melissa M.D. Performed By: #### 2 4321-2, 47610-9, 2776-05 #### [facility] CLIA [id number] [address] [place] [address] GROSS DESCRIPTION A. PLAQUE. Normal [facility] Comment on above: Order Comment: Speci men Type: BLOOD SPECIMEN Result Comment: Rece ived in formalin labeled plaque is a yellow-gilmore slightly firm tubular pressure measuring 4 x 1.5 x 1 cm. No vessel wall is identified. No thrombi are present. [place] sections are submitted in cassette A1 after full decalcification. OLS/kls Gross examination performed at [facility], [address] [place] [address] CLIA# [id number] Performed By: #### 2 4321-2, 44073-0, 2776-05 #### [facility] CLIA [id number] [address] [place] [address] PreOp/PreProc COVIDon 2020 SARS-CoV-2 (COVID-19) RNA ELVIRA+probe Ql (Unsp spec) UPPER RESPIRATORY TRACT SWAB Normal [facility] Comment on above: Performed By: #### P OCOVD #### [facility] [address] [place], [place] [address] SARS-CoV-2 (COVID-19) RNA ELVIRA+probe Ql (Unsp spec) Negative Normal Negative for COVID19 (SARS CoV2) by PCR. [facility] Comment on above: Result Comment: This test was developed and its performance characteristics determined by [facility] [place]. This test has been authorized by FDA under an Emergency Use Authorization (EUA). This test has been validated in accordance with the FDA's Guidance Document Policy for Diagnostics Testing in Laboratories Certified to Perform High Complexity Testing under CLIA prior to Emergency use Authorization for Coronavirus Disease 2019 during the Public Health Emergency issued on June 29, 2019. Test performed by [facility], [facility] [place], [address] [address]. Performed By: #### P OCOVD #### [facility] [address] [address] Basic metabolic 2000 panelon 07-15-2020 Anion gap [Moles/Vol] 7 mmol/L Low 9-18 [facility] Comment on above: Order Comment: Speci men Type: BLOOD SPECIMEN Performed By: #### 2 4321-2 #### [facility] CLIA [id number] [address] [place] [address] Calcium [Mass/Vol] 9.7 mg/dL Normal 8.5-10.2 [facility] Comment on above: Order Comment: Speci men Type: BLOOD SPECIMEN Performed By: #### 2 4321-2 #### [facility] CLIA [id number] [address] [place] [address] Chloride [Moles/Vol] 100 mmol/L Normal 97-105 [facility] Comment on above: Order Comment: Speci men Type: BLOOD SPECIMEN Performed By: #### 2 4321-2 #### [facility] CLIA [id number] [address] [place] [address] CO2 [Moles/Vol] 29 mmol/L Normal 22-30 [facility] Comment on above: Order Comment: Speci men Type: BLOOD SPECIMEN Performed By: #### 2 4321-2 #### [facility] CLIA [id number] [address] [place] [address] Creatinine [Mass/Vol] 1.15 mg/dL Normal 0.73-1.22 [facility] Comment on above: Order Comment: Speci men Type: BLOOD SPECIMEN Performed By: #### 2 4321-2 #### [facility] CLIA [id number] [address] [place] [address] GFR/1.73 sq M.predicted MDRD (S/P/Bld) [Vol rate/Area] mL/min/{1.73_m2} Normal [facility] Comment on above: Order Comment: Speci men Type: BLOOD SPECIMEN Result Comment: >60 eGFR (Estimated GFR) Units of measure: mL/min/1.73 meters squared eGFR is derived from the reexpressed MDRD Study equation using the following parameters: serum creatinine, age, gender and race. The creatinine assay has been calibrated to be traceable to IDMS. An eGFR <60 mL/min/1.73m2 for >3 months is consistent with chronic kidney disease. Refer to KDOQI guidelines for clinical interpretation. In patients with unstable renal function, e.g. those with acute kidney injury, the eGFR may not accurately reflect actual GFR. Performed By: #### 2 4321-2 #### [facility] CLIA [id number] [address] [place] [address] Glucose [Mass/Vol] 90 mg/dL Normal 74-99 [facility] Comment on above: Order Comment: Speci men Type: BLOOD SPECIMEN Result Comment: The [place] Diabetes Association (ADA) provides guidance for cutoff values for fasting glucose and random glucose. The ADA defines fasting as no caloric intake for at least 8 hours. Fasting plasma glucose results between 100 to 125 mg/dL indicate increased risk for diabetes (prediabetes). Fasting plasma glucose results greater than or equal to 126 mg/dL meet the criteria for diagnosis of diabetes. In the absence of unequivocal hyperglycemia, results should be confirmed by repeat testing. In a patient with classic symptoms of hyperglycemia or hyperglycemic crisis, random plasma glucose results greater than or equal to 200 mg/dL meet the criteria for diagnosis of diabetes. Reference: Standards of Medical Care in Diabetes 2016, [place] Diabetes Association. Diabetes Care. 2016.39(Suppl 1). Performed By: #### 2 4321-2 #### [facility] CLIA [id number] [address] [place] [address] Potassium [Moles/Vol] 4.7 mmol/L Normal 3.7-5.1 [facility] Comment on above: Order Comment: Speci men Type: BLOOD SPECIMEN Performed By: #### 2 4321-2 #### [facility] CLIA [id number] [address] [place] [address] Sodium [Moles/Vol] 136 mmol/L Normal 136-144 [facility] Comment on above: Order Comment: Speci men Type: BLOOD SPECIMEN Performed By: #### 2 4321-2 #### [facility] CLIA [id number] [address] [place] [address] Urea nitrogen [Mass/Vol] 17 mg/dL Normal 9-24 [facility] Comment on above: Order Comment: Speci men Type: BLOOD SPECIMEN Performed By: #### 2 4321-2 #### [facility] CLIA [id number] [address] [place] [address] CBC panel Auto (Bld)on 07-15 Erythrocyte distribution width (RBC) [Ratio] 13.4 % Normal 11.5-15.0 [facility] Comment on above: Order Comment: Speci men Type: BLOOD SPECIMEN Performed By: #### H MAG1C #### [facility] CLIA [id number] [address] [place] [address] Hematocrit (Bld) [Volume fraction] 42.2 % Normal 39.0-51.0 [facility] Comment on above: Order Comment: Speci men Type: BLOOD SPECIMEN Performed By: #### H MAG1C #### [facility] CLIA [id number] [address] [place] [address] Hemoglobin (Bld) [Mass/Vol] 14.6 g/dL Normal 13.0-17.0 [facility] Comment on above: Order Comment: Speci men Type: BLOOD SPECIMEN Performed By: #### H BURKE #### [facility] CLIA [id number] [address] [place] [address] MCH (RBC) [Entitic mass] 32.1 pg Normal 26.0-34.0 [facility] Comment on above: Order Comment: Speci men Type: BLOOD SPECIMEN Performed By: #### H BA1C #### [facility] CLIA [id number] [address] [place] [address] MCHC (RBC) [Mass/Vol] 34.6 g/dL Normal 30.5-36.0 [facility] Comment on above: Order Comment: Speci men Type: BLOOD SPECIMEN Performed By: #### Domitila BA1C #### [facility] CLIA [id number] [address] [place] [address] MCV (RBC) [Entitic vol] 92.7 fL Normal 80.0-100.0 [facility] Comment on above: Order Comment: Speci men Type: BLOOD SPECIMEN Performed By: #### Domitila TURK #### [facility] CLIA [id number] [address] [place] [address] Nucleated RBC (Bld) [#/Vol] 10*3/uL Normal <0.01 [facility] Comment on above: Order Comment: Speci men Type: BLOOD SPECIMEN Performed By: #### Domitila TURK #### [facility] CLIA [id number] [address] [place] [address] Platelet mean volume (Bld) [Entitic vol] 9.4 fL Normal 9.0-12.7 [facility] Comment on above: Order Comment: Speci men Type: BLOOD SPECIMEN Performed By: #### Domitila TURK #### [facility] CLIA [id number] [address] [place] [address] Platelets (Bld) [#/Vol] 210 10*3/uL Normal 150-400 [facility] Comment on above: Order Comment: Speci men Type: BLOOD SPECIMEN Performed By: #### Domitila HATHAWAY1C #### [facility] CLIA [id number] [address] [place] [address] RBC (Bld) [#/Vol] 4.55 10*6/uL Normal 4.20-6.00 [facility] Comment on above: Order Comment: Speci men Type: BLOOD SPECIMEN Performed By: #### Domitila BA1C #### [facility] CLIA [id number] [address] [place] [address] WBC (Bld) [#/Vol] 9.77 10*3/uL Normal 3.70-11.00 [facility] Comment on above: Order Comment: Speci men Type: BLOOD SPECIMEN Performed By: #### H BA1C #### [facility] CLIA [id number] [address] [place] [address] HISTORY PHYSICALon HISTORY PHYSICAL HNO ID: [id number] Author: Brandy Szymanski Service: ? Author Type: Nurse Practitioner Type: HANDP Filed: 07/15/2020 2:36 PM Note Text: HISTORY AND PHYSICAL EXAMINATION SERVICE DATE: 07/15/2020 SERVICE TIME: 1340 PRIMARY CARE PHYSICIAN: Mariela King MD REASON FOR VISIT: Rancho Muller is a 84 year old male who is scheduled for Procedure(s): LEFT CAROTID ENDARTERECTOMY (Left) at the request of Dr. Liliya Mares for routine HANDP The patient has the following: ACTIVE PROBLEM LIST Displacement of Intervertebral Disc, Site Unspecified, Without Myelopathy Coronary Atherosclerosis of Unspecified Type of Vessel, [place] Or Graft Hld (Hyperlipidemia) Depression Esophageal Reflux Right Bundle Branch Block Cardiomegaly Hyperpotassemia Hypercalcemia Spinal Stenosis, Lumbar Region, Without Neurogenic Claudication Displacement of Lumbar Intervertebral Disc Without Myelopathy Lumbosacral Spondylosis Without Myelopathy SKIN CARCINOMA BACK Multiple Thyroid Nodules Cholelithiasis and Cholecystitis Without Obstruction Left Carotid Artery Stenosis Htn (Hypertension) Copd (Chronic Obstructive Pulmonary Disease) (Hcc) Subjective CHIEF COMPLAINT: Left-sided carotid stenosis HPI: This is a 84 year old male that presents today for presurgical testing with c/o above. Patient was seen in ED for TIA/slurred speech/confusion in 01/2020. Imaging was done at the time and it showed that he had 70% right carotid stenosis and 50-70% in the left. Patient reports he also had an episode in 05/2020 where he had dizziness and confusion that lasted briefly. Denies any residual. Denies any pain today, denies any recent fevers or chills. Patient has met with surgeon and has agreed to surgical intervention. REVIEW OF SYSTEMS: General: No weight loss, malaise or fevers. Neurological: TIA x3, last one in May, states dizziness and unsteady gait and difficulty to starting to get moving, Positive for: TIA Negative for: seizures and strokes Respiratory: Positive for: COPD and tobacco use (former smoker ). Negative for: asthma, current cough, dyspnea, home oxygen, pneumonia within 6 weeks, URI < 2 weeks and obstructive sleep apnea Cardiovascular: RBBB, Carotid Stenosis, PAD Positive for: CAD, hyperlipidemia and hypertension Negative for: chest pain, CHF and DVT/PE GI: No history of GI symptoms or problems. No history of esophageal varices, recent ascites, or ETOH greater than 2 drinks per day. : No history of dysuria, frequency or incontinence, stones or chronic kidney disease. No difficulty urinating, nocturia > 1 time per night or hematuria. Endocrine: No history of diabetes. Has not taken steroids within the past 30 days. No history of endocrinological symptoms or problems. Hematology: No history of bleeding or clotting disorder. Pt is not taking anti-coagulation or platelet medications. No history of hematological symptoms or problems. Oncology: No history of CA metastasis, chemo within 30 days, or radiotherapy within 90 days. No history of oncological symptoms or problems. Psych: No history of psychiatric symptoms or problems. Musculoskeletal: Negative for joint pain or swelling, back pain or muscle pain. Skin: Negative for lesions, rash and itching. PAST MEDICAL HISTORY Diagnosis Date - Aphasia 01/2020 - Bilateral carotid artery stenosis - Cardiomegaly - Chronic depressive personality disorder - COPD (chronic obstructive pulmonary disease) (HCC) - Coronary atherosclerosis of unspecified type of vessel, [place] or graft - Depression - Displacement of intervertebral disc, site unspecified, without myelopathy - Esophageal reflux - Lumbosacral spondylosis without myelopathy - Other and unspecified hyperlipidemia - PAD (peripheral artery disease) (HCC) - Right bundle branch block - Spinal stenosis, lumbar region, without neurogenic claudication - Swelling left foot and ankle PAST SURGICAL HISTORY Procedure Laterality Date - APPENDECTOMY - CABG, ARTERIAL, FOUR+ 06/2000 quadruple - FNA WITH IMAGING 09/14/2009 U/S FNA right thyroid lesion - LOW BACK DISK SURGERY 2006 ruptured disk - MAL LESION TRUNK,ARM,LEG 1.1-2.0 CM 02/05/2008 Exc, left upper back skin lesion - PAST SURGICAL HISTORY OF Right 2017 repair femur spiral fracture - RIGHT HEART CATHETERIZATION 12/09/2009 Cardiac cath, R heart, [facility] FAMILY HISTORY Problem Relation Age of Onset - Ischemic Heart Disease Father - other (Depression) Mother - Coronary Artery Disease Brother - other (CHF) Brother - other (Drowning accident) Brother Social History Tobacco Use - Smoking status: Former Smoker Packs/day: 1.00 Years: 50.00 Pack years: 50.00 Types: Cigarettes Quit date: 03/31/1999 Years since quittin.3 - Smokeless tobacco: Never Used - Tobacco comment: quit 1998 Substance Use Topics - Alcohol use: Yes Comment: seldom - Drug use: (more content not included)... Normal [facility] PT panel Coag (PPP)on 2020 INR Coag (PPP) [Relative time] 1.0 {INR} Normal 0.9-1.3 [facility] Comment on above: Order Comment: Speci men Type: BLOOD SPECIMEN Result Comment: Anjana min K Antagonist (VKA) Therapeutic Range: INR 2 to 3 (Target INR of 2.5) Note: For patients treated with VKA drugs, such as warfarin, the [place] [employer] 2012 Guideline recommends a therapeutic INR range of 2 to 3 (target INR of 2.5). This recommendation includes high-risk patients with antiphospholipid syndrome with previous arterial or venous thromboembolism, current-generation mechanical or bioprosthetic aortic heart valve replacement. Note: Patients with mechanical aortic valve replacement and additional risk factors for thromboembolic events (atrial fibrillation, previous thromboembolism, LV dysfunction, hypercoagulable conditions) or an older generation mechanical AVR (i.e., ball in-Cage) or any mechanical MVR should have a INR therapeutic range of 2.5 to 3.5 (target INR of 3). Lindsay GH, et al. Chest 2012, 141:7S-47S Raina RA, et al. [facility] 2017, 70: 252-289 Performed By: #### 2 4321-2, 57477-3, 2776- #### [facility] CLIA [id number] [address] [place] [address] PT Coag (PPP) [Time] 10.8 s Normal 9.7-13.0 [facility] Comment on above: Order Comment: Speci men Type: BLOOD SPECIMEN Performed By: #### 2 4321-2, 63573-2, 2777-1 #### [facility] CLIA [id number] [address] [id number] Toi 06-16-2020 TARA Telephone ([place]) PORFIRIORANCHO XIONG ([id number]) 1935 M Date Time Provider Department 06/16/20 LILIYA MARES [facility] During your visit today, we recorded the following information about you: Alexa Schaefer APRN.REHAN SEGAL 06/16/2020 2:30 PM Signed Orders signed. Thank you, Alexa Schaefer APRN.REHAN Paris 06/16/2020 3:49 PM Signed The patient is scheduled for Left Carotid Endarterectomy on 07/22/20 @ 830am with a 630am arrival time. Pretesting is 07/15/20 @ [address] [facility] building - No fasting is required Covid - [facility] 07/19/20 @ 10:05am Post op is 08/21/20 @ 1030 am with Alexa Schaefer Mailed 06/16/20 Allergies As of Date: 06/16/2020 Noted Allergy Reaction ASPIRIN 05/17/2005 Comments: GI upset PENICILLINS 05/17/2005 Date Reviewed: 03/03/2020 Reviewed by: Keegan (Rn) JESSENIA Paredes - Fully Assessed Reason for Visit: Schedule Surgery [1330] Primary Visit Diagnosis:Bilateral carotid artery stenosis [I65.23] Order(s):SURGICAL REQUEST - ELECTIVE (11/2019) [7814011] Order #: [id number]: 1 HANDP FOR SURGERY [[id number]] Order #: [id number] PRE-PROCEDURE AND PRE-OPERATIVE COVID [SQPOCOVD] Order #: [id number] FUTURE CBC [SQCBC] Order #: [id number] FUTURE BASIC METABOLIC PNL [SQBMP] Order #: [id number] FUTURE PROTHROMBIN TIME/PT [SQPT] Order #: [id number] FUTURE ECG COMPLETE [ECG01] Order #: [id number] FUTURE Prescriptions as of 06/16/2020 Sig: ASPIRIN 81 MG CHEWABLE TABLET Take 1 tablet by mouth once d* LISINOPRIL 10 MG TABLET Take 10 mg by mouth once tyson* ATORVASTATIN 40 MG TABLET Take 40 mg by mouth once tyson* METOPROLOL SUCCINATE ER 25 MG* Take 25 mg by mouth once tyson* ESCITALOPRAM 5 MG TABLET Take 5 mg by mouth once daily. NITROGLYCERIN 0.4 MG SUBLINGU* place 1 tablet under the tong* * PREVACID 30 MG CAPSULE,DELAYE* Take one(1) capsule daily., a* Problem List As Of Date 06/16/2020 Noted Resolved DISC DISPLACEMENT NOS [[id number]] 06/12/2005 CORONARY ATHEROSCLER UNSPEC VESSEL [I25.10] 06/12/2005 HLD (hyperlipidemia) [E78.5] 06/12/2005 Depression [F32.9] 06/12/2005 ESOPHAGEAL REFLUX [K21.9] 06/12/2005 RT BUNDLE BRANCH BLOCK [I45.10] 06/12/2005 CARDIOMEGALY [I51.7] 06/12/2005 HYPERPOTASSEMIA [E87.5] 06/12/2005 HYPERCALCEMIA [E83.52] 06/12/2005 SPINAL STENOSIS-LUMBAR [M48.061] 06/12/2005 LUMBAR DISC DISPLACEMENT [M51.26] 06/12/2005 LUMBOSACRAL SPONDYLOSIS [M47.817] 06/12/2005 SKIN CARCINOMA BACK [173.5] 12/26/2007 Multiple Thyroid Nodules [E04.2] 09/07/2009 Cholelithiasis and Cholecystitis without Obstru*12/14/2009 Stroke-like symptoms [R29.90] 02/28/2020 03/03/2020 Left carotid artery stenosis [I65.22] 02/28/2020 HTN (hypertension) [I10] 02/28/2020 COPD (chronic obstructive pulmonary disease) (H*02/28/2020 Numbness and tingling in right hand [R20.0, R20*02/28/2020 03/03/2020 Symptomatic carotid artery stenosis [I65.29] 02/28/2020 03/03/2020 Encounter Status:Closed by ALEXA SCHAEFER CNP on 06/16/20 [facility] CNPNon 04-02-2020 [facility] Telephone ([place]) RANCHO MULLER ([id number]) 1935 M Date Time Provider Department 04/02/20 LILIYA MARES During your visit today, we recorded the following information about you: Liliya Mares MD 04/02/2020 5:51 PM Signed Mr. Muller will need to be scheduled for a L CEA when ok to schedule cases again. Thanks! Allergies As of Date: 04/02/2020 Noted Allergy Reaction ASPIRIN 05/17/2005 Comments: GI upset PENICILLINS 05/17/2005 Date Reviewed: 03/03/2020 Reviewed by: Keegan (Rn) JESSENIA Paredes - Fully Assessed Reason for Visit: Schedule Surgery [1330] Prescriptions as of 04/02/2020 Sig: ASPIRIN 81 MG CHEWABLE TABLET Take 1 tablet by mouth once d* LISINOPRIL 10 MG TABLET Take 10 mg by mouth once tyson* ATORVASTATIN 40 MG TABLET Take 40 mg by mouth once tyson* METOPROLOL SUCCINATE ER 25 MG* Take 25 mg by mouth once tyson* ESCITALOPRAM 5 MG TABLET Take 5 mg by mouth once daily. NITROGLYCERIN 0.4 MG SUBLINGU* place 1 tablet under the tong* * PREVACID 30 MG CAPSULE,DELAYE* Take one(1) capsule daily., a* Problem List As Of Date 04/02/2020 Noted Resolved DISC DISPLACEMENT NOS [[id number]] 06/12/2005 CORONARY ATHEROSCLER UNSPEC VESSEL [I25.10] 06/12/2005 HLD (hyperlipidemia) [E78.5] 06/12/2005 Depression [F32.9] 06/12/2005 ESOPHAGEAL REFLUX [K21.9] 06/12/2005 RT BUNDLE BRANCH BLOCK [I45.10] 06/12/2005 CARDIOMEGALY [I51.7] 06/12/2005 HYPERPOTASSEMIA [E87.5] 06/12/2005 HYPERCALCEMIA [E83.52] 06/12/2005 SPINAL STENOSIS-LUMBAR [M48.061] 06/12/2005 LUMBAR DISC DISPLACEMENT [M51.26] 06/12/2005 LUMBOSACRAL SPONDYLOSIS [M47.817] 06/12/2005 SKIN CARCINOMA BACK [173.5] 12/26/2007 Multiple Thyroid Nodules [E04.2] 09/07/2009 Cholelithiasis and Cholecystitis without Obstru*12/14/2009 Stroke-like symptoms [R29.90] 02/28/2020 03/03/2020 Left carotid artery stenosis [I65.22] 02/28/2020 HTN (hypertension) [I10] 02/28/2020 COPD (chronic obstructive pulmonary disease) (H*02/28/2020 Numbness and tingling in right hand [R20.0, R20*02/28/2020 03/03/2020 Symptomatic carotid artery stenosis [I65.29] 02/28/2020 03/03/2020 Encounter Status:Closed by LILIYA MARES MD on 06/17/20 [facility] CASE MANAGEMon 03-03-2020 CASE MANAGEM HNO ID: [id number] Author: MARTIN Bird (Lisw) Service: Social Work Author Type: Clean Room Operator Type: Care Mgt Progress Note Filed: 03/03/2020 12:27 PM Note Text: CARE MANAGEMENT PROGRESS NOTE SERVICE DATE: 03/03/2020 SERVICE TIME: 12:26 PM LOS: 4 days Admission Date: 02/28/2020 DISCHARGE ARRANGEMENT (list agency and phone number) Discharge Arrangement: Home Provider Name: N/A Phone: N/A CAREGIVER ASSESSMENT: Caregiver is ready, willing and able to meet the patient's needs as recommended by the inter-professional team:: Yes Does the patient have an acute stroke diagnosis, or has the patient had a stroke during this admission?: No Patient's transition needs and plan for meeting these needs: Home with selfcare HANDOFF COMMUNICATION: Handoff to: Primary Care Physician Primary Care Physician Name/Phone: Summary of care to PCP TRANSPORTATION ARRANGEMENTS: Transportation Arrangements: Car ADDITIONAL CONTACT RESOURCES: none Discharge home by car with . SIGNATURE: MARTIN Bird PATIENT NAME: Rancho Muller DATE: March 03, 2020 TIME: 12:26 PM PAGER/CONTACT #: [phone] [facility] CNDSon 03-03-2020 CNDS HNO ID: [id number] Author: Joce Zuniga MD Service: Hospital Medicine Author Type: Physician Type: Discharge Summary Filed: 03/03/2020 11:49 AM Note Text: DISCHARGE SUMMARY PATIENT NAME: Rancho Muller Code Status: Full Code Highest Readmission Risk Score: 13 The 30 day readmissions risk score is derived from an internally validated risk model which evaluates patient level characteristics, utilization history, medication orders and lab results up until the day of discharge. Patients with a score of 40 or above are considered highest risk for readmission. Specific patient level drivers will be listed at the bottom of the summary. Admission Information Admission Information ADMIT DATE: 02/28/2020 DISCHARGE DATE: 03/03/2020 MY DOCTORS AND MEDICAL TEAM: My Main Hospital Doctor: Joce Zuniga MD Primary Care Provider: Mariela King MD My Medical Team Members: Treatment Team: Attending Provider: Joce Zuniga MD Consulting: Bandar Calhoun MD Consulting: Yvon Joel Primary Service: Nicholas Jameson MY CONDITION AT DISCHARGE: Stable REASON I WAS IN THE HOSPITAL:confusion, slurred speech, right arm numbness SUMMARY OF WHAT HAPPENED WHILE I WAS IN THE HOSPITAL: This is a 84 year old male with PMHx of COPD, HTN, and HLD. He was admitted from Monday to evening at [facility] after presentation of confusion. 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 He presented to [facility] ED after being confused and slurring speech which was resolved by the time of he reached [facility]. Due to symptoms of right arm numbness and continued concern for TIAs he was transferred to [facility]. Neurology and vascular surgery were consulted EEG was unremarkable demonstrating slowing,Echo with EF 60% and mild LVH Brain MRI: 1. ?No evidence restricted diffusion indicating acute infarction. ?No significant change in 02/27/2020 MRI. 2. ?Redemonstration advanced degree of supratentorial chronic microvascular ischemic changes, moderate/advanced central atrophy as well as stable moderate enlargement of the lateral ventricles and third ventricle. ?Although ventricular enlargement may all be due to cortical atrophy; however, component of normal pressure hydrocephalus cannot be excluded in the appropriate clinical setting. MRI findings were reviewed by Neurlogy and vascular surgery and recommendations were to continue aspirin and Lipitor and follow up as outpatient with Emilio Rock for CEA. Patient remained stable during the hospital stay. OTHER PROBLEMS/DIAGNOSIS: Principal Problem (Resolved): Stroke-like symptoms Active Problems: HLD (hyperlipidemia) Depression Left carotid artery stenosis HTN (hypertension) COPD (chronic obstructive pulmonary disease) (HCC) Resolved Problems: Numbness and tingling in right hand Symptomatic carotid artery stenosis OPERATIONS PERFORMED WHILE IN THE HOSPITAL: None IMPORTANT TEST/PROCEDURES: Brain MRI, Echocardiogram TEST RESULTS NOT AVAILABLE AT THIS TIME: no pending Discharge Disposition Discharge Disposition: Home With Self Care Activity When You Leave the Hospital Resume pre-hospital activity Diet Instructions Low Salt Resume your pre-hospital diet Follow Up Appointments Follow-Up Appointment When: In 1 week Mariela King [phone] [facility]. [facility] [address] [facility] [address] PCP Requested Referral Follow-Up Appointment When: In 5 days Liliya Mares [phone] [address] [facility] [address] [facility] [address] PCP Requested Referral Follow-Up Appointment When: In 2 weeks Bandar Calhoun MD [phone] [facility] [address] PCP Requested Referral Additional Provider to Provider Information: Treatment Team: Attending Provider: Joce Zuniga MD Consulting: Bandar Calhoun MD Consulting: Yvon Joel Primary Service: Nicholas Jameson [facility] Critical Issues: Continue aspirin and statin Follow up with Neurology Follow up with Vascular surgery for CEA as outpatient LABS AND PROCEDURES PENDING AT DISCHARGE: No pending results. Ruled Out FOLLOW-UP APPOINTMENTS ALREADY SCHEDULED WITH A [facility] PROVIDER: No future appointments. ALLERGIES Allergen Reactions - Aspirin GI upset - Penicillins DISCHARGE MEDICATION: Current Discharge Medication List START taking these medications aspirin 81 mg Take 81 mg by mouth once daily. Qty: 30 tablet Refills: 0 CONTINUE these medications which have NOT CHANGED lisinopril (ZESTRIL, PRINIVIL) 10 mg Take 10 mg by mouth once daily. atorvastatin (LIPITOR) 40 mg Take 40 mg by mouth once daily. metoprolol succinate ER (TOPROL XL) 25 mg Take 25 mg by mouth once daily. escitalopram oxalate (LEXAPRO) 5 mg Take 5 mg by mouth once daily. nitroglycerin sublingual (NITROQUICK) 0.[address] 1 tablet under the tongue if needed every 5 TO 15 MINUTES for c (more content not included)... Normal [facility] CONSULT PROGon 03-03-2020 CONSULT PROG HNO ID: [id number] Author: Berlin Fox (Pa) Service: Neurology ICU Author Type: Physician Aircraft Fueler Type: Consult Progress Note Filed: 03/03/2020 8:40 AM Note Text: Neurology progress note: [facility] surgery planning for outpatient follow up Cont ASA and statin Follow up with neurology, information in d/c instructions and lady request sent Stroke warning symptoms given and when to get to ED. No further neurology work up okay to d/c when medically stable Will sign off. BERLIN FOX PA-C March 03, 2020 8:39 AM 1763 Normal [facility] NURSING PROGon 03-03-2020 NURSING PROG HNO ID: [id number] Author: Janny Aviles RN Service: Nursing Author Type: Registered Nurse Type: Nursing Progress Note Filed: 03/03/2020 11:59 AM Note Text: Discharge instructions reviewed with patient and . No further questions at this time. Stroke booklet given and reviewed with patient and . Normal [facility] THERAPY NTon 03-03-2020 THERAPY NT HNO ID: [id number] Author: Shirley Marie Service: Physical Therapy Author Type: Physical Therapist Type: Therapy (PT/OT/Speech/Resp) Filed: 03/03/2020 11:53 AM Note Text: Physical Therapy Evaluation SERVICE DATE: 03/03/2020 SERVICE TIME: 1035 to 1100 ROOM: [id number] Recommended Discharge Disposition: Home This patient is moving well in the halls with continued walking became more steady on his feet, feels he is near his baseline just moving a little slower as he is stiff. PT 6 Clicks Score: 20 Precautions/Activity Restrictions: Fall Risk Current Hospital Course: stroke wprkup, R ICA .70% stenosis Reason for Hospital Admission: confusion and aphasia Relevant Past Medical History: 2 falls in 2 years, one resulting in spiral femur fracutre Response to Therapy Interventions: Good participation in activities Continue skilled needs due to: Functional mobility/skill impairments, Safety concerns Physical Therapy Problem List: Education Deficit;Safety Deficits;Functional Mobility Impairment;Balance Impaired Treatment Interventions: Education Plan for next visit: Fall prevention, Gait training Home Environment Patient Lives With: Spouse Assistance Available: 24 Hour Entry To Home: Stairs Number Of Stairs Into Home: 3 Equipment Owned: Cane Prior Functional Level: Within Functional Limits Prior Functional Level Comments: Walks with a cane in the yard only, indep at home and with self care, drives and does yard work Patient Report: patient states he feels normal CURRENT FUNCTIONAL STATUS: Most recent performance Current Functional Mobility Assist Level Additional Information Rolling Independent Supine to Sit Independent Sit to Supine Independent Scooting Sit to Stand Contact Guard Assistance Stand to Sit Contact Guard Assistance Bed to Chair Toilet/Commode Gait Contact Guard Assistance Gait Device: None Gait Distance (feet): 120 x 2 Stairs Curb Step Car Transfer Blank chatman indicate activity not attempted General Deviations/Observation s: Stefanie decreased;Lateral sway increased JH-HLM: 7: Walk 25 feet or more Learning/Educational Needs: Functional Activities/Mobility Goals for Plan of Care: Patient /Caregiver Goals: Go Home Goals: Patient will demonstrate understanding of importance of mobility during hospital stay and resolve all functional needs identified. Able to perform HEP with: Independent Transfer supine to/from sit with: Independent Transfer sit to/from stand with: Independent Ambulate with: Independent Distance: 50 Device: No Device Ambulate up and down steps with: Independent Number of steps: 4 Device: Rail Rehab Potential: Excellent Patient will be discontinued from Physical Therapy when no further skilled needs are identified in this setting. PLAN: Treatment Frequency (times per week): 5(3-5) Current admission Plan of Care developed with: Patient;Family TREATMENT INTERVENTIONS: Therapy Diagnosis: Muscle Weakness (generalized);Unsteadi ness on feet Interventions Provided: Evaluation;Gait Training (44844) $ Evaluation-Moderate (87162) Billed Units: 1 unit Gait Training (51307) Treatment Minutes: 10 $ Gait Training (82813) Billed Units: 1 unit Educated on gaze stability, easing back in to activity and fall prevention Training AND education provided in: Benefits of in-hospital mobility, Falls prevention The following therapeutic skills were used: Activity dosing, Cuing tactile, Cuing verbal Total Timed Code Treatment Minutes: 10 Total Treatment Time (minutes): 25 Please see discipline specific clinical documentation flowsheet for complete details for this therapy evaluation/treatment. SIGNATURE: Shirley Marie PT PATIENT NAME: Rancho Muller DATE: March 03, 2020 TIME: 11:52 AM [facility] ALLIED HEALTHon 03-02-2020 ALLIED HEALTH HNO ID: [id number] Author: Dyan Perrin (Rt) Service: Radiology Author Type: Tax Credit Leasing Consultant Type: Allied Health Filed: 03/02/2020 1:57 PM Note Text: Radiology Service Progress Note PATIENT NAME: Rancho Muller DATE OF SERVICE: March 02, 2020 TIME: 1:57 PM PATIENT IDENTITY VERIFICATION COMPLETED USING TWO (2) IDENTIFIERS: Name and Date of confirmed by patient verbally. FALL SCREENING: Has the patient had 2 falls in the last year or 1 fall with injury or currently using an Ambulatory Assistive Device (Walker, Cane, Wheelchair, Crutches, etc.)? No PATIENT GENDER DATA: Male PATIENT RELEVANT IMPLANT DATA REVIEWED: Yes RADIOLOGY DEPARTMENT: MR; Exam(s) Completed: Head: Routine Brain PERIPHERAL IV DATA: Not applicable SIGNED BY: RT Marychuy March 02, 2020 1:57 PM [facility] CASE MANAGEMon 03-02-2020 CASE MANAGEM HNO ID: [id number] Author: MARTIN Bird (Lisw) Service: Social Work Author Type: Clean Room Operator Type: Care Mgt Progress Note Filed: 03/02/2020 4:16 PM Note Text: CARE MANAGEMENT PROGRESS NOTE SERVICE DATE: 03/02/2020 SERVICE TIME: 4:15 PM LOS: 3 days IMM Follow Up Copy Given: Yes Copy given to:: Patient Method: In Person IM letter given to patient SIGNATURE: MARTIN Bird PATIENT NAME: Rancho Muller DATE: March 02, 2020 TIME: 4:15 PM PAGER/CONTACT #: [phone] [facility] CASE MGT INIT ASSESon 2019 CASE MGT INIT ASSES HNO ID: [id number] Author: MARTIN Bird (Lisw) Service: Social Work Author Type: Clean Room Operator Type: Care Mgt Initial Assessment Filed: 03/02/2020 12:49 PM Note Text: CARE MANAGEMENT: ASSESSMENT AND DISCHARGE PLAN SERVICE DATE: March 02, 2020 SERVICE TIME: 12:44 PM PRIMARY CARE PHYSICIAN: Mariela King MD ADMISSION STATUS: Inpatient Needs Prior to Discharge: OT/PT Evaluation;Patient/Fam nick MEDICAL: [employer] MEDICARE PPO Patient/[employer] Stated Goals: To have reduction in symptoms Health Insurance: Aet Health Issues Impacting Discharge Plan: Newly diagnosed Newly Diagnosed: Aphasia Chronic: S/P CABG 2000,R ICA stenosis Last Discharge Date: 06/17/05 Is this Within the Past 30 days? Last discharge within 30 days: No Advance Directive: Current Advance Directive: Health Care Power of Overhead Irrigator In Chart: Yes Up To Date and Valid: Yes Health LiteracyHow often do you need to have someone help you when you read instructions, pamphlets, or other written material from your doctor or pharmacy? : 1 - Never How confident are you filling out medical forms by yourself?: 1 - Extremely Baseline Mental Status Prior to this Illness what was the patient's Baseline Mental Status?: Alert AND Oriented Prior to this illness, has anyone described the patient having any of the following behaviors?: Not Applicable Relationship of the informant to the patient:: Self Functional Status: Independent Does Patient Currently Receive Any Community Services or Home Care?: None Equipment Prior to Admission: Cane Has the Patient Been in a Senior Living Facility in the Past 30 days?: No SOCIAL: Living Arrangements: Home Lives With: Spouse Financial Resources: Retired Primary Contact: Extended Emergency Contact Information Primary Emergency Contact: LEA MULLER Address: [address] [place] [address] Mobile Relation: Spouse Supportive Patient Contact:: Yes Contact Resources: Family Family Name/Phone: Social Needs Food insecurity Worry: Never true Inability: Never true Resources Needed: No Social Needs Financial resource strain: Not on file Social Needs Transportation needs Medical: No Non-medical: No Caregiver AssessmentCaregiver is ready, willing and able to meet the patient's needs as recommended by the inter-professional team:: Yes Does the patient have an acute stroke diagnosis, or has the patient had a stroke during this admission?: Unable to assess at this time Patient's transition needs and plan for meeting these needs: Await PT/OT evals Patient's perception of need for this admission: R/O stroke Medication Adherance I am convinced of the importance of my prescription medication: 0 - Agree Completely I worry that my prescription medication will do more harm than good to me : 0 - Disagree Completely I feel financially burdened by my [id number] expenses for my prescription medication:: 0 - Disagree Completely Risk Score: 0 Patient is categorized as: Low risk < 2 Are you interested in bedside delivery of your medications? No Is Patient Psychosocially Complex?: No ASSESSMENT AND PLAN: Medical Needs: Medical Needs: Two or more chronic diseases Psychosocial Needs: Psychosocial Needs: None FREEDOM OF CHOICE EXPLAINED: [place] of Choice Given: No Reason Not Given: Unable to complete with this assessment - revisit POTENTIAL TRANSITION PLANS Home;Outpatient Therapy Met with patient and his .Patient lives with and uses a cane. Patient has been independent with ADL's prior to admission. Pharmacies at [facility] in [place] if urgent but tries to use [facility] .Await PT/OT.berta. Plan is home by car with when medically stable. SIGNATURE: MARTIN Bird PATIENT NAME: Rancho Muller DATE: March 02, 2020 TIME: 12:44 PM PAGER/CONTACT #: [phone] [facility] CONSULT PROGon 03-02-2020 CONSULT PROG HNO ID: [id number] Author: Berlin Ram) Maciel Service: Neurology ICU Author Type: Physician Aircraft Fueler Type: Consult Progress Note Filed: 03/02/2020 4:23 PM Note Text: NEURO STROKE PROGRESS NOTE SERVICE DATE: 03/02/2020 SERVICE TIME: 1020 Subjective INTERVAL HISTORY: patient resting in bed with at the bedside. Pt hesitant to have MRI completed again due to claustrophobia. He agrees if premedicated. He denies anymore of these episodes of speech difficulty or 'blanking out' MEDICATIONS Current Facility-Administered Medications Medication Dose Route Frequency - atorvastatin 40 mg tab(s) (LIPITOR) 40 mg ORAL AT BEDTIME - lisinopril 10 mg tab(s) (ZESTRIL, PRINIVIL) 10 mg ORAL DAILY - metoprolol succinate ER 25 mg tab(s) (TOPROL XL) 25 mg ORAL DAILY - pantoprazole DR 40 mg tab(s) (PROTONIX) 40 mg ORAL DAILY PRN - escitalopram oxalate 5 mg tab(s) (LEXAPRO) 5 mg ORAL DAILY - sodium chloride 0.9 % (flush) 3-5 mL (BD POSIFLUSH) 3-5 mL INTRAVENOUS q 12 H - ondansetron 4 mg tab(s) (ZOFRAN) 4 mg ORAL q 6 H PRN Or - ondansetron (PF) 4 mg injection (ZOFRAN) 4 mg INTRAVENOUS q 6 H PRN - docusate sodium 100 mg cap(s) (COLACE) 100 mg ORAL BID PRN - acetaminophen 650 mg tab(s) (TYLENOL) 650 mg ORAL q 6 H PRN - heparin 5,000 Units injection 5,000 Units SUBCUTANEOUS q 12 H - albuterol 2.5 mg /3 mL (0.083 %) 2.5 mg (PROVENTIL) 2.5 mg INHALATION q 4 H while awake - perflutren lipid microspheres 1.1 mg/mL 1.3 mL injection (DEFINITY) 1.3 mL INTRAVENOUS DIRECTED PRN - aspirin 81 mg chewable tab(s) 81 mg ORAL DAILY - [COMPLETED] LORazepam 1 mg injection (ATIVAN) 1 mg INTRAVENOUS ONCE Objective PHYSICAL EXAM Vital Signs: BP 144/81 Pulse 69 Temp 36.6 ?C (97.9 ?F) (Oral) Resp 18 Ht 182.9 cm (6') Wt 93.1 kg (205 lb 4 oz) SpO2 96% BMI 27.84 kg/m? NEUROLOGICAL: LOC: 0 - alert and responsive 0 LOC Questions: 0 - both correct 0 LOC Commands: 0 - both correct 0 Best Gaze: 0 - normal gaze 0 Visual: 0 - no visual loss 0 Facial Palsy: 0 - normal 0 Motor Left Arm: 0 - no drift 0 Motor Right Arm: 0 - no drift 0 Motor Left Le - no drift 0 Motor Right Le - no drift 0 Limb Ataxia: 0 - no ataxia (or aphasic, hemiplegic) 0 Sensory: 0 - normal 0 Best Language: 0 - normal 0 Dysarthria: 0 - normal 0 Extinction and Inattention: 0 - normal, none detected (or visual loss alone) 0 Daily NIHSS Score: 0 (03/02/20 1351 : Berlin Fox (Pa)) 0 MENTAL STATUS: Alert, oriented to person, place and time and Follows commands CRANIAL NERVES: PERRLA, EOM's intact, Visual chatman intact to confrontation, Extraocular movements intact, Facial sensation intact, Face symmetric, No facial droop or ptosis, Hearing intact to finger rub bilaterally, No dysarthria, Palate elevates symmetrically, Tongue protrudes midline and Shoulder shrug intact and symmetric MOTOR: No drift and Normal tone MOTOR STRENGTH: Upper and lower extremity 5/5 bilaterally SENSATION: Intact light touch COORDINATION: Finger-to- nose-finger intact bilaterally and Ekfc-ha-hzbd intact bilaterally GAIT: Not assessed DATA: Diagnostic tests reviewed for today's visit: Lipids, HbA1c, Recent Labs 02/29/20 0357 CHOL 121 HDL 39* LDL 47 TG 177* HBA1C 5.1 Most recent labs and imaging results. MEDICAL EVENTS: No medical events have been recorded. STROKE 9 CARE AND PREVENTION CHECKLIST 1. Is the patient currently on an ANTITHROMBOTIC medication (Antiplatelet or Anticoagulant): Aspirin 2. Does the patient have known AFIB/FLUTTER: No 3. Is the patient on a STATIN: Atorvastatin 40 mg 4. Is the patient on VTE prophylaxis: Pharmacological prophylaxis Pharmacological intervention type: Heparin SQ 5. GLYCEMIC Control Medications: Not Diabetic 6. Stroke BP Goals: Permissive HTN (treat if >220/120) Stroke BP Control: BP well controlled 7. Stroke IVF/Nutrition: Diet 8. TEMPERATURE Control: Normothermic 9. Does the patient need THERAPY: No Reason for no therapy orders: Patient is at baseline, no therapy needed Stroke Care and Prevention (personally reviewed by BERLIN FOX PA-C): Daily Rounding Date: 03/02/20 Daily Rounding Time: 1351 PROBLEM LIST: Principal Problem: Stroke-like symptoms POA: Yes Active Problems: HLD (hyperlipidemia) POA: Yes Depression POA: Yes Left carotid artery stenosis POA: Yes HTN (hypertension) POA: Yes COPD (chronic obstructive pulmonary disease) (HCC) POA: Yes Numbness and tingling in right hand POA: Yes Symptomatic carotid artery stenosis POA: Yes Resolved Problems: * No resolved hospital problems. * Medication and Non-Pharmacologic VTE Prophylaxis/Anticoagul ants Anticoagulant AND Antiplatelet Medications (From admission, onward) Start Dose Route Frequency Ordered Stop 02/29/20 0900 aspirin 81 mg chewable tab(s) 81 mg ORAL DAILY 02/28/20 2254 -- 02/28/20 2100 heparin 5,000 Units injection (Medical Risk Categories) 5,000 Units SUB (more content not included)... Normal [facility] MRI BRAIN WO IVCONon 020 MRI BRAIN WO IVCON Final Report DATE OF EXAM: Mar 02 2020 2:10PM LEXII 0294 - MRI BRAIN WO IVCON / PROCEDURE REASON: Speech changes (or aphasia), new or progressive Physician Interpretation EXAMINATION: MRI BRAIN WO IVCON CLINICAL HISTORY: Recurrent aphasia, dyspnea, confusion, right hand numbness TECHNIQUE: Limited MRI of the brain without contrast. Technologist notes limited exam due to patient's condition including confusion. MQ: [id number] COMPARISON: 02/27/2020 MRI brain. 02/28/2020 CTA from an outside center RESULT: Acute Change: There is no evidence of restricted diffusion to suggest an acute infarct. Hemorrhage: No evidence of T1 hyperintense subacute hemorrhage on the T1-weighted sagittal images Mass Lesion/ Mass Effect: No evidence of an intracranial mass or extra-axial fluid collection. No significant mass effect. Chronic Change: Redemonstration of advanced degree of supratentorial chronic microvascular ischemic change at the periventricular white matter level. Parenchyma: Moderate parenchymal volume loss. Moderate degree of thinning of the corpus callosum. Ventricles: Moderate degree of generalized ventricular enlargement, unchanged. Fourth ventricle is not enlarged Skull Base: Hypothalamic and pituitary region are grossly normal. Craniocervical junction is normal. No significant marrow replacement process. Vasculature: Major intracranial arterial structures, and dural venous sinuses show typical flow void, suggesting patency. Other: The visualized paranasal sinuses and mastoid air cells are clear. The orbits and extracranial soft tissues are unremarkable. IMPRESSION: 1. No evidence restricted diffusion indicating acute infarction. No significant change in 02/27/2020 MRI. 2. Redemonstration advanced degree of supratentorial chronic microvascular ischemic changes, moderate/advanced central atrophy as well as stable moderate enlargement of the lateral ventricles and third ventricle. Although ventricular enlargement may all be due to cortical atrophy; however, component of normal pressure hydrocephalus cannot be excluded in the appropriate clinical setting. Self Sealing Fuel Tank Builder: PSCB Transcribe Date/Time: Mar 02 2020 2:45P Dictated by : KINGSLEY SALDANA MD This examination was interpreted and the report reviewed and electronically signed by: KINGSLEY SALDANA MD on Mar 02 2020 2:57PM EST Normal [facility] Basic metabolic 2000 panelon 02-29-2020 Anion gap [Moles/Vol] 9 mmol/L Normal 9-[facility] Comment on above: Order Comment: Speci men Type: BLOOD SPECIMEN Performed By: #### 2 4321-2, , 2776-05 #### [facility] CLIA [id number] [address] [place] [address] Calcium [Mass/Vol] 9.4 mg/dL Normal 8.5-10.2 [facility] Comment on above: Order Comment: Speci men Type: BLOOD SPECIMEN Performed By: #### 2 4321-2, , 2776-05 #### [facility] CLIA [id number] 1 [place] [address] Chloride [Moles/Vol] 102 mmol/L Normal 97-105 [facility] Comment on above: Order Comment: Speci men Type: BLOOD SPECIMEN Performed By: #### 2 1-2, , 2776-05 #### [facility] CLIA [id number] 1 [place] [address] CO2 [Moles/Vol] 26 mmol/L Normal 22-30 [facility] Comment on above: Order Comment: Speci men Type: BLOOD SPECIMEN Performed By: #### 2 1-2, , 2776-05 #### [facility] CLIA [id number] 1 [place] [address] Creatinine [Mass/Vol] 1.11 mg/dL Normal 0.73-1.22 [facility] Comment on above: Order Comment: Speci men Type: BLOOD SPECIMEN Performed By: #### 2 4321-2, , 2776-05 #### [facility] CLIA [id number] 1 [place] [address] GFR/1.73 sq M.predicted MDRD (S/P/Bld) [Vol rate/Area] mL/min/{1.73_m2} Normal [facility] Comment on above: Order Comment: Speci men Type: BLOOD SPECIMEN Result Comment: >60 eGFR (Estimated GFR) Units of measure: mL/min/1.73 meters squared eGFR is derived from the reexpressed MDRD Study equation using the following parameters: serum creatinine, age, gender and race. The creatinine assay has been calibrated to be traceable to IDMS. An eGFR <60 mL/min/1.73m2 for >3 months is consistent with chronic kidney disease. Refer to KDOQI guidelines for clinical interpretation. In patients with unstable renal function, e.g. those with acute kidney injury, the eGFR may not accurately reflect actual GFR. Performed By: #### 2 4320-2, , 2776-05 #### [facility] CLIA [id number] 1 [place] [address] Glucose [Mass/Vol] 99 mg/dL Normal 74-99 [facility] Comment on above: Order Comment: Speci men Type: BLOOD SPECIMEN Result Comment: The [place] Diabetes Association (ADA) provides guidance for cutoff values for fasting glucose and random glucose. The ADA defines fasting as no caloric intake for at least 8 hours. Fasting plasma glucose results between 100 to 125 mg/dL indicate increased risk for diabetes (prediabetes). Fasting plasma glucose results greater than or equal to 126 mg/dL meet the criteria for diagnosis of diabetes. In the absence of unequivocal hyperglycemia, results should be confirmed by repeat testing. In a patient with classic symptoms of hyperglycemia or hyperglycemic crisis, random plasma glucose results greater than or equal to 200 mg/dL meet the criteria for diagnosis of diabetes. Reference: Standards of Medical Care in Diabetes 2016, [place] Diabetes Association. Diabetes Care. 2016.39(Suppl 1). Performed By: #### 2 4320-2, , 2776-05 #### [facility] CLIA [id number] 1 [place] [address] Potassium [Moles/Vol] 4.4 mmol/L Normal 3.7-5.1 [facility] Comment on above: Order Comment: Speci men Type: BLOOD SPECIMEN Performed By: #### 2 4320-2, , 2776-05 #### [facility] CLIA [id number] 1 [place] [address] Sodium [Moles/Vol] 137 mmol/L Normal 136-144 [facility] Comment on above: Order Comment: Speci men Type: BLOOD SPECIMEN Performed By: #### 2 4320-2, , 2776-05 #### [facility] CLIA [id number] 1 [place] [address] Urea nitrogen [Mass/Vol] 16 mg/dL Normal 9-24 [facility] Comment on above: Order Comment: Speci men Type: BLOOD SPECIMEN Performed By: #### 2 4321-2, , 2776-05 #### [facility] CLIA [id number] 1 [place] [address] CBC panel Auto (Bld)on 02-28 Erythrocyte distribution width (RBC) [Ratio] 14.1 % Normal 11.5-15.0 [facility] Comment on above: Order Comment: Speci men Type: BLOOD SPECIMEN Performed By: #### 2 432-2, , 2776-05 #### [facility] CLIA [id number] 1 [place] [address] Hematocrit (Bld) [Volume fraction] 43.5 % Normal 39.0-51.0 [facility] Comment on above: Order Comment: Speci men Type: BLOOD SPECIMEN Performed By: #### 2 4321-2, , 2776-05 #### [facility] CLIA [id number] 1 [place] [address] Hemoglobin (Bld) [Mass/Vol] 14.9 g/dL Normal 13.0-17.0 [facility] Comment on above: Order Comment: Speci men Type: BLOOD SPECIMEN Performed By: #### 2 4321-2, , 2776-05 #### [facility] CLIA [id number] 1 [place] [address] MCH (RBC) [Entitic mass] 31.8 pg Normal 26.0-34.0 [facility] Comment on above: Order Comment: Speci men Type: BLOOD SPECIMEN Performed By: #### 2 4321-2, , 2776-05 #### [facility] CLIA [id number] 1 [place] [address] MCHC (RBC) [Mass/Vol] 34.3 g/dL Normal 30.5-36.0 [facility] Comment on above: Order Comment: Speci men Type: BLOOD SPECIMEN Performed By: #### 2 4321-2, , 2776-05 #### [facility] CLIA [id number] 1 [place] [address] MCV (RBC) [Entitic vol] 92.8 fL Normal 80.0-100.0 [facility] Comment on above: Order Comment: Speci men Type: BLOOD SPECIMEN Performed By: #### 2 1-2, , 2776-05 #### [facility] CLIA [id number] 1 [place] [address] Nucleated RBC (Bld) [#/Vol] 10*3/uL Normal <0.01 [facility] Comment on above: Order Comment: Speci men Type: BLOOD SPECIMEN Performed By: #### 2 4320-2, , 2776-05 #### [facility] CLIA [id number] 1 [place] [address] Platelet mean volume (Bld) [Entitic vol] 9.3 fL Normal 9.0-12.7 [facility] Comment on above: Order Comment: Speci men Type: BLOOD SPECIMEN Performed By: #### 2 1-2, , 2776-05 #### [facility] CLIA [id number] 1 [place] [address] Platelets (Bld) [#/Vol] 243 10*3/uL Normal 150-400 [facility] Comment on above: Order Comment: Speci men Type: BLOOD SPECIMEN Performed By: #### 2 4321-2, , 2776-05 #### [facility] CLIA [id number] 1 [place] [address] RBC (Bld) [#/Vol] 4.69 10*6/uL Normal 4.20-6.00 [facility] Comment on above: Order Comment: Speci men Type: BLOOD SPECIMEN Performed By: #### 2 4321-2, , 2776-05 #### [facility] CLIA [id number] 1 [place] [address] WBC (Bld) [#/Vol] 11.23 10*3/uL High 3.70-11.00 [facility] Comment on above: Order Comment: Speci men Type: BLOOD SPECIMEN Performed By: #### 2 4321-2, 82683-3, 2777- #### [facility] CLIA [id number] 1 [place] [address] CONSULTon 02-29-2020 CONSULT HNO ID: [id number] Author: Bandar Calhoun MD Service: Neurology Stroke Author Type: Physician Type: Consults Filed: 02/29/2020 11:43 AM Note Text: NEURO STROKE INITIAL CONSULT SERVICE DATE: 02/29/2020 SERVICE TIME: 1000 REQUESTING PHYSICIAN: Carina PCP: Mariela King MD REASON FOR STROKE EVALUATION: recurrent aphasia Subjective HPI: This is an 84 year old RH male transferred from [facility] due to symptoms of recurrent aphasia. He has a history of CAD, s/p CABG in 2000. Patient reports developing acute onset confusion, difficulty getting words out, with associated dyspnea on 02/25 afternoon, he then presented to [facility] where he was admitted for workup for possible stroke vs TIA. He had MRI b which was neg (images uploaded, no acute infarct, chronic ischemic changes noted, , while CTA revealed bilateral carotid stenosis, R>L). He was discharged home, continued on his baseline aspirin and statin. Yesterday afternoon patient had another similar episode with confusion, difficulty getting words out, lasting for ?1-2 hours with spontaneous resolution. 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 Pre-admission Was patient on antithrombotic agent prior to admission: Antiplatelet Antiplatelet: Aspirin Was patient on lipid lowering agent prior to admission: Statin Pre-morbid mRS: Premorbid Modified [place] Score: 0 - No symptoms at all PAST MEDICAL HISTORY Diagnosis Date - Cardiomegaly - Chronic depressive personality disorder - COPD (chronic obstructive pulmonary disease) (HCC) - Coronary atherosclerosis of unspecified type of vessel, washoe or graft - Depression - Displacement of intervertebral disc, site unspecified, without myelopathy - Esophageal reflux - Lumbosacral spondylosis without myelopathy - Other and unspecified hyperlipidemia - PAD (peripheral artery disease) (HCC) - Right bundle branch block - Spinal stenosis, lumbar region, without neurogenic claudication PAST SURGICAL HISTORY Procedure Laterality Date - APPENDECTOMY - CABG, ARTERIAL, FOUR+ 06/2000 - FNA WITH IMAGING 09/14/2009 U/S FNA right thyroid lesion - MAL LESION TRUNK,ARM,LEG 1.1-2.0 CM 02/05/08 Exc, left upper back skin lesion - PAST SURGICAL HISTORY OF Right 2017 repair femur spiral fracture - RIGHT HEART CATHETERIZATION 12-09-2009 Cardiac cath, R heart, [facility] Social History Tobacco Use - Smoking status: Former Smoker Packs/day: 1.00 Years: 50.00 Pack years: 50.00 Types: Cigarettes Quit date: 03/31/1999 Years since quittin.9 - Smokeless tobacco: Never Used - Tobacco comment: quit 1998 Substance Use Topics - Alcohol use: Yes Comment: seldom - Drug use: Not on file FAMILY HISTORY Problem Relation Age of Onset - Ischemic Heart Disease Father - other (Depression [Other]) Mother - Coronary Artery Disease Brother - other (CHF [Other]) Brother - other (Drowning accident [Other]) Brother ALLERGIES Allergen Reactions - Aspirin GI upset - Penicillins MEDICATION Pre-admission - lisinopril (ZESTRIL, PRINIVIL) 10 mg tablet, Take 10 mg by mouth once daily., Disp: , Rfl: , Unknown at Unknown time - atorvastatin (LIPITOR) 40 mg tablet, Take 40 mg by mouth once daily., Disp: , Rfl: , 02/27/2020 at Unknown time - metoprolol succinate ER (TOPROL XL) 25 mg 24 hr tablet, Take 25 mg by mouth once daily., Disp: , Rfl: , 02/27/2020 at Unknown time - escitalopram oxalate (LEXAPRO) 5 mg tablet, Take 5 mg by mouth once daily., Disp: , Rfl: , 02/27/2020 at Unknown time - nitroglycerin sublingual (NITROQUICK) 0.4 mg SL tablet, place 1 tablet under the tongue if needed every 5 TO 15 MINUTES for chest pain for 3 doses, Disp: , Rfl: 0 - lansoprazole(PREVACID 30 MG CAP), Take one(1) capsule daily., as needed, Disp: , Rfl: 0, Unknown at Unknown time Current lisinopril (ZESTRIL, PRINIVIL) 10 mg tablet Take 10 mg by mouth once daily. atorvastatin (LIPITOR) 40 mg tablet Take 40 mg by mouth once daily. metoprolol succinate ER (TOPROL XL) 25 mg 24 hr tablet Take 25 mg by mouth once daily. escitalopram oxalate (LEXAPRO) 5 mg tablet Take 5 mg by mouth once daily. nitroglycerin sublingual (NITROQUICK) 0.[address] 1 tablet under the tongue if needed every 5 TO 15 MINUTES for chest pain for 3 doses lansoprazole(PREVACID 30 MG CAP) Take one(1) capsule daily., as needed REVIEW OF SYSTEMS The following systems were reviewed with the patient, and are unremarkable other than as described below. SYSTEMIC: No fever, chills, or change in weight or appetite HEENT: No recent change in vision or hearing. GI: No recent nausea, vomiting or diarrhea. : No recent hematuria or dysuria. SKIN: No recent itching or eruption. PSYCH: No recent active a (more content not included)... Normal [facility] HGB A1Con 02-29-2020 Average glucose Estimated from glycated hemoglobin (Bld) [Mass/Vol] 100 mg/dL Normal [facility] Comment on above: Order Comment: Speci men Type: BLOOD SPECIMEN Result Comment: eAG: (Estimated average glucose) is a calculated value from HgbA1c and is eligibility services representative of the average blood glucose level in the last 2-3 month period. Performed By: #### H BA1C #### [facility] CLIA [id number] [address] [place] [address] HbA1c (Bld) [Mass fraction] 5.1 % Normal 4.3-5.6 [facility] Comment on above: Order Comment: Speci men Type: BLOOD SPECIMEN Performed By: #### H BA1C #### [facility] CLIA [id number] [address] [place] [address] LIPID PANEL BASICon 02-29-20 20 Cholesterol [Mass/Vol] 121 mg/dL Normal <200 [facility] Comment on above: Order Comment: Speci men Type: BLOOD SPECIMEN Result Comment: <200 mg/dL, Desirable 200-239 mg/dL, Borderline high >239 mg/dL, High Performed By: #### 2 4321-2, , 2776-05 #### [facility] CLIA [id number] 1 [place] [address] Cholesterol in HDL [Mass/Vol] 39 mg/dL Low >39 [facility] Comment on above: Order Comment: Speci men Type: BLOOD SPECIMEN Result Comment: 40-5 9 mg/dL, Acceptable >59 mg/dL, High: Negative risk factor for coronary heart disease <40 mg/dL, Low: Positive risk factor for coronary heart disease Performed By: #### 2 4321-2, , 2776-05 #### [facility] CLIA [id number] 1 [place] [address] Cholesterol in LDL [Mass/Vol] 47 mg/dL Normal <100 [facility] Comment on above: Order Comment: Speci men Type: BLOOD SPECIMEN Result Comment: <100 mg/dL, Optimal 100-129 mg/dL, Near optimal/above optimal 130-159 mg/dL, Borderline high 160-189 mg/dL, High >189 mg/dL, Very high Secondary prevention optimal LDL Cholesterol levels are recommended to be < 70 mg/dL Performed By: #### 2 4321-2, , 2776-05 #### [facility] CLIA [id number] 1 [place] [address] Cholesterol in LDL/Cholesterol in HDL [Mass ratio] 1.21 {ratio} Normal <2.54 [facility] Comment on above: Order Comment: Speci men Type: BLOOD SPECIMEN Result Comment: Refe rence: 1. National Cholesterol Education Program ATP III Guideline At-A-Glance Quick Desk Reference: National Heart, Lung, and Blood [place]. National Institutes of Health. 2001: NIH Publication No. 01-3305. 2. An International Atherosclerosis Society position paper: global recommendations for the management of dyslipidemia: executive summary, Atherosclerosis. 2014: 232(2):410-413. Performed By: #### 2 4321-2, , 2776-05 #### [facility] CLIA [id number] [address] [place] [address] Cholesterol in VLDL [Mass/Vol] 35 mg/dL High <30 [facility] Comment on above: Order Comment: Speci men Type: BLOOD SPECIMEN Performed By: #### 2 1-2, , 2776-05 #### [facility] CLIA [id number] [address] [place] [address] Cholesterol non HDL [Mass/Vol] 82 mg/dL Normal <130 [facility] Comment on above: Order Comment: Speci men Type: BLOOD SPECIMEN Result Comment: <130 mg/dL, Optimal 130-159 mg/dL, Near optimal/above optimal 160-189 mg/dL, Borderline high 190-219 mg/dL, High >219 mg/dL, Very high Secondary prevention optimal non HDL Cholesterol levels are recommended to be <100 mg/dL Performed By: #### 2 1-2, , 2776-05 #### [facility] CLIA [id number] [address] [place] [address] Cholesterol.total/Cho lesterol in HDL [Mass ratio] 3.10 {ratio} Normal <5.10 [facility] Comment on above: Order Comment: Speci men Type: BLOOD SPECIMEN Performed By: #### 2 4320-2, , 2776-05 #### [facility] CLIA [id number] [address] [place] [address] FASTING TIME 9 hrs Normal [facility] Comment on above: Order Comment: Speci men Type: BLOOD SPECIMEN Performed By: #### 2 1-2, , 2776-05 #### [facility] CLIA [id number] [address] [place] [address] Triglyceride [Mass/Vol] 177 mg/dL High <150 [facility] Comment on above: Order Comment: Speci men Type: BLOOD SPECIMEN Result Comment: <150 mg/dL, Normal 150-199 mg/dL, Borderline high 200-499 mg/dL, High >499 mg/dL, Very high Performed By: #### 2 4321-2, , 2776-05 #### [facility] CLIA [id number] [address] [place] [address] TSH SerPl-aCncon 02-29-2020 TSH Qn 1.040 m[IU]/L Normal 0.270-4.200 [facility] Comment on above: Order Comment: Speci men Type: BLOOD SPECIMEN Performed By: #### 2 4321-2, , 2776-05 #### [facility] CLIA [id number] [address] [place] [address] Urinalysis complete panel (U )on 02-29-2020 Bacteria LM.HPF (Urine sed) [#/Area] None Seen Normal None Seen [facility] Comment on above: Order Comment: Speci men Type: BLOOD SPECIMEN Performed By: #### 2 4321-2, , 2776-05 #### [facility] CLIA [id number] [address] [place] [address] Bilirubin Ql (U) Negative Normal Negative [facility] Comment on above: Order Comment: Speci men Type: BLOOD SPECIMEN Performed By: #### 2 4321-2, , 2776-05 #### [facility] CLIA [id number] [address] [place] [address] Clarity (Unsp spec) Clear Normal Clear [facility] Comment on above: Order Comment: Speci men Type: BLOOD SPECIMEN Performed By: #### 2 4321-2, , 2776-05 #### [facility] CLIA [id number] [address] [place] [address] Color (U) Yellow Normal Yellow [facility] Comment on above: Order Comment: Speci men Type: BLOOD SPECIMEN Performed By: #### 2 4321-2, , 2776-05 #### [facility] CLIA [id number] [address] [place] [address] Epithelial cells LM.HPF (Urine sed) [#/Area] 0.3 /[HPF] Normal [facility] Comment on above: Order Comment: Speci men Type: BLOOD SPECIMEN Performed By: #### 2 4321-2, , 2776-05 #### [facility] CLIA [id number] [address] [place] [address] Glucose Test strip (U) [Mass/Vol] Negative Normal Negative [facility] Comment on above: Order Comment: Speci men Type: BLOOD SPECIMEN Performed By: #### 2 4321-2, , 2776-05 #### [facility] CLIA [id number] [address] [place] [address] Hemoglobin Ql (U) Negative Normal Negative [facility] Comment on above: Order Comment: Speci men Type: BLOOD SPECIMEN Performed By: #### 2 4321-2, , 2776-05 #### [facility] CLIA [id number] [address] [place] [address] Hyaline casts (Urine sed) [#/Area] 0 /[LPF] Normal 0 /LPF [facility] Comment on above: Order Comment: Speci men Type: BLOOD SPECIMEN Performed By: #### 2 4321-2, , 2776-05 #### [facility] CLIA [id number] [address] [place] [address] Ketones Ql (U) Negative Normal Negative [facility] Comment on above: Order Comment: Speci men Type: BLOOD SPECIMEN Performed By: #### 2 4321-2, , 2776-05 #### [facility] CLIA [id number] [address] [place] [address] Leukocyte esterase Test strip Ql (U) Negative Normal Negative [facility] Comment on above: Order Comment: Speci men Type: BLOOD SPECIMEN Performed By: #### 2 4321-2, , 2776-05 #### [facility] CLIA [id number] [address] [place] [address] Nitrite Ql (U) Negative Normal Negative [facility] Comment on above: Order Comment: Speci men Type: BLOOD SPECIMEN Performed By: #### 2 4321-2, , 2776-05 #### [facility] CLIA [id number] [address] [place] [address] pH (U) 5.5 [pH] Normal 5.0-8.0 [facility] Comment on above: Order Comment: Speci men Type: BLOOD SPECIMEN Performed By: #### 2 4321-2, , 2776-05 #### [facility] CLIA [id number] [address] [place] [address] Protein (U) [Mass/Vol] Negative Normal Negative [facility] Comment on above: Order Comment: Speci men Type: BLOOD SPECIMEN Performed By: #### 2 1-2, , 2776-05 #### [facility] CLIA [id number] [address] [place] [address] RBC LM.HPF (Urine sed) [#/Area] 0-3 /HPF Normal 0-3 /HPF [facility] Comment on above: Order Comment: Speci men Type: BLOOD SPECIMEN Performed By: #### 2 1-2, , 2776-05 #### [facility] CLIA [id number] [address] [place] [address] Specific gravity (U) [Rel density] 1.043 High 1.005-1.030 [facility] Comment on above: Order Comment: Speci men Type: BLOOD SPECIMEN Performed By: #### 2 1-2, , 2776-05 #### [facility] CLIA [id number] [address] [place] [address] Urobilinogen Ql (U) 0.2 EU/dL Normal 0.2-1.0 EU/dL [facility] Comment on above: Order Comment: Speci men Type: BLOOD SPECIMEN Performed By: #### 2 4321-2, , 2776-05 #### [facility] CLIA [id number] [address] [place] [address] WBC LM.HPF (Urine sed) [#/Area] 0-5 /HPF Normal 0-5 /HPF [facility] Comment on above: Order Comment: Speci men Type: BLOOD SPECIMEN Performed By: #### 2 1-2, , 2776-05 #### [facility] CLIA [id number] [address] [place] [address] VITAMIN B12 BLOODon 02-29-20 20 Cobalamin (Vitamin B12) [Mass/Vol] 305 pg/mL Normal 232-1,245 [facility] Comment on above: Order Comment: Speci men Type: BLOOD SPECIMEN Performed By: #### 2 4321-2, 43279-8, 2777-1 #### [facility] CLIA [id number] [address] [place] [address] CONSULTon 02-28-2020 CONSULT HNO ID: [id number] Author: Eber Rios DO Service: Vascular Surgery Author Type: Resident Type: Consults Filed: 02/28/2020 10:42 PM Note Text: Attestation signed by Liliya Mares at 02/29/2020 1:52 PM Attending Note I personally saw and examined the patient. I reviewed the resident's note. I agree with the resident's assessment and plan unless otherwise noted. CTA appears to show a 50-70% lesion of the L ICA - poor opacification on previous imaging. Patient currently undergoing further workup including repeat MRI. Will follow for need for possible L CEA. Signature: Liliya Mares MD Date: 02/29/2020 Time: 1:51 PM CONSULT: Vascular Surgery Service SERVICE DATE: 02/28/2020 SERVICE TIME: 8:19 PM REASON FOR CONSULT: L ICA stenosis REQUESTING PHYSICIAN: Dr. Lyles NATURE OF CONSULT: routine Subjective 84 year old male with PMH significant for COPD (former smoker: states 60 years but he quit in 1958), HTN, HLD, CAD s/p 4 vessel bypass in 2000. He states he admitted at [facility] Monday and Monday although the hospitalist note mentioned Monday to . According to him he had symptoms of lightheadedness, dizziness, and speech slurring. Denied any focal weakness, numbness or tingling at the index admission. No facial droop. He states these symptoms maybe lasted a couple of days. He notes that he was then sent home but his brought him back. He was subsequently sent here for concern of TIAs. He notes that he had some right hand numbness this morning. Denied any of the other aforementioned associated symptoms. He is currently asymptomatic now. He does not note and prior symptoms to these two events. He is currently expecting surgical intervention. He states he does take an aspirin and statin normally. He does note that he cannot walk up a flight of stairs or a block without getting short of breath. He attributes this to his COPD. He denies being on any home oxygen. Vascular/Thoracic Surgical History or Testing: None per patient Smoking Status: former smoker Ambulatory Status: Ambulatory with limitations PAST MEDICAL HISTORY Diagnosis Date - Cardiomegaly - Chronic depressive personality disorder - COPD (chronic obstructive pulmonary disease) (HCC) - Coronary atherosclerosis of unspecified type of vessel, washoe or graft - Depression - Displacement of intervertebral disc, site unspecified, without myelopathy - Esophageal reflux - Lumbosacral spondylosis without myelopathy - Other and unspecified hyperlipidemia - PAD (peripheral artery disease) ([facility]) - Right bundle branch block - Spinal stenosis, lumbar region, without neurogenic claudication PAST SURGICAL HISTORY Procedure Laterality Date - APPENDECTOMY - CABG, ARTERIAL, FOUR+ 06/2000 - FNA WITH IMAGING 09/14/2009 U/S FNA right thyroid lesion - MAL LESION TRUNK,ARM,LEG 1.1-2.0 CM 02/05/08 Exc, left upper back skin lesion - PAST SURGICAL HISTORY OF Right 2017 repair femur spiral fracture - RIGHT HEART CATHETERIZATION 12-09-2009 Cardiac cath, R heart, [facility] FAMILY HISTORY Problem Relation Age of Onset - Ischemic Heart Disease Father - other (Depression [Other]) Mother - Coronary Artery Disease Brother - other (CHF [Other]) Brother - other (Drowning accident [Other]) Brother Social History Tobacco Use - Smoking status: Former Smoker Packs/day: 1.00 Years: 50.00 Pack years: 50.00 Types: Cigarettes Quit date: 03/31/1999 Years since quittin.9 - Smokeless tobacco: Never Used - Tobacco comment: quit 1998 Substance Use Topics - Alcohol use: Yes Comment: seldom - Drug use: Not on file - lisinopril (ZESTRIL, PRINIVIL) 10 mg tablet, Take 10 mg by mouth once daily., Disp: , Rfl: , Unknown at Unknown time - atorvastatin (LIPITOR) 40 mg tablet, Take 40 mg by mouth once daily., Disp: , Rfl: , 02/27/2020 at Unknown time - metoprolol succinate ER (TOPROL XL) 25 mg 24 hr tablet, Take 25 mg by mouth once daily., Disp: , Rfl: , 02/27/2020 at Unknown time - escitalopram oxalate (LEXAPRO) 5 mg tablet, Take 5 mg by mouth once daily., Disp: , Rfl: , 02/27/2020 at Unknown time - nitroglycerin sublingual (NITROQUICK) 0.4 mg SL tablet, place 1 tablet under the tongue if needed every 5 TO 15 MINUTES for chest pain for 3 doses, Disp: , Rfl: 0 - lansoprazole(PREVACID 30 MG CAP), Take one(1) capsule daily., as needed, Disp: , Rfl: 0, Unknown at Unknown time Current Facility-Administered Medications Medication Dose Route Frequency - atorvastatin 40 mg tab(s) (LIPITOR) 40 mg ORAL AT BEDTIME - lisinopril 10 mg tab(s) (ZESTRIL, PRINIVIL) 10 mg ORAL DAILY - metoprolol succinate ER 25 mg tab(s) (TOPROL XL) 25 mg ORAL DAILY - pantoprazole DR 40 mg tab(s) (PROTONIX) 40 mg ORAL DAILY (more content not included)... Normal [facility] HISTORY PHYSICALon 0 HISTORY PHYSICAL HNO ID: [id number] Author: Regla Lyles Service: Hospital Medicine Author Type: Nurse Practitioner Type: HANDP Filed: 02/28/2020 6:27 PM Note Text: Attestation signed by Cinthya Doty at 02/29/2020 1:01 AM Pt seen and examined at 12:30 a.m. on 02/29/20 He states on Monday he had R hand numbness and slurred speech. Monday these symptoms recurred States he takes a baby aspirin daily VSS NAD H reg Lclear Abd soft No LE swelling No focal deficits Sensation intact A/p 84 yo M hx HLD, CAD, CABG, COPD CTA revealed extensive atherosclerotic plaque of the R ICA with stenosis > 70% L ICA 50-69% stenosis CT brain no hemorrhage. No acute infarct. Pt received plavix 300 mg in ED (per orders in chart) PLAN: Consult Neuro- Consult vascular- Aspirin- Statin- Check lipids- DEPARTMENT OF HOSPITAL MEDICINE HISTORY AND PHYSICAL EXAM SERVICE DATE: 02/28/2020 SERVICE TIME: 5:36 PM Primary Care Physician: Mariela King MD NIGHT AND WEEKEND COVERAGE: After 7pm call #[phone] Chief complaint: Aphasia, right hand numbness HPI: This is a 84 year old male with PMHx of COPD, HTN, and HLD. He was admitted from Monday to evening at [facility] after similar presentation of confusion. 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 He presented to [place] ED after being confused and slurring speech this morning which has now resolved. Due to symptoms of right arm numbness and continued concern for TIAs he was transferred to [facility]. On my exam he states he has a slight headache but otherwise feels fine. He does still have numbness in his right hand. He is oriented and is not slurring his speech. He denies chest pain, SOB, cough, fever/chills, vision changes, dizziness, abd pain, or N/V/D. PAST MEDICAL HISTORY Diagnosis Date - Cardiomegaly - Chronic depressive personality disorder - COPD (chronic obstructive pulmonary disease) ([facility]) - Coronary atherosclerosis of unspecified type of vessel, washoe or graft - Depression - Displacement of intervertebral disc, site unspecified, without myelopathy - Esophageal reflux - Lumbosacral spondylosis without myelopathy - Other and unspecified hyperlipidemia - PAD (peripheral artery disease) ([facility]) - Right bundle branch block - Spinal stenosis, lumbar region, without neurogenic claudication PAST SURGICAL HISTORY Procedure Laterality Date - APPENDECTOMY - CABG, ARTERIAL, FOUR+ 06/2000 - FNA WITH IMAGING 09/14/2009 U/S FNA right thyroid lesion - MAL LESION TRUNK,ARM,LEG 1.1-2.0 CM 02/05/08 Exc, left upper back skin lesion - PAST SURGICAL HISTORY OF Right 2017 repair femur spiral fracture - RIGHT HEART CATHETERIZATION 12-09-2009 Cardiac cath, R heart, [facility] FAMILY HISTORY Problem Relation Age of Onset - Ischemic Heart Disease Father - other (Depression [Other]) Mother - Coronary Artery Disease Brother - other (CHF [Other]) Brother - other (Drowning accident [Other]) Brother Social History Tobacco Use - Smoking status: Former Smoker Packs/day: 1.00 Years: 50.00 Pack years: 50.00 Types: Cigarettes Quit date: 03/31/1999 Years since quittin.9 - Smokeless tobacco: Never Used - Tobacco comment: quit 1998 Substance Use Topics - Alcohol use: Yes Comment: seldom - Drug use: Not on file HOME MEDICATIONS: Prior to Admission Medications Prescriptions Last Dose Informant Patient Reported? Taking? atorvastatin (LIPITOR) 40 mg tablet 02/27/2020 at Unknown time Yes Yes Sig: Take 40 mg by mouth once daily. escitalopram oxalate (LEXAPRO) 5 mg tablet 02/27/2020 at Unknown time Yes Yes Sig: Take 5 mg by mouth once daily. lansoprazole(PREVACID 30 MG CAP) Unknown at Unknown time Yes No Sig: Take one(1) capsule daily., as needed lisinopril (ZESTRIL, PRINIVIL) 10 mg tablet Unknown at Unknown time Yes Yes Sig: Take 10 mg by mouth once daily. metoprolol succinate ER (TOPROL XL) 25 mg 24 hr tablet 02/27/2020 at Unknown time Yes Yes Sig: Take 25 mg by mouth once daily. nitroglycerin sublingual (NITROQUICK) 0.4 mg SL tablet Yes No Sig: place 1 tablet under the tongue if needed every 5 TO 15 MINUTES for chest pain for 3 doses Facility-Administered Medications: None ALLERGIES Allergen Reactions - Aspirin GI upset - Penicillins REVIEW OF SYSTEM: All systems reviewed and negative except as stated in HPI PHYSICAL EXAM: BP 157/90 Pulse 102 Resp 18 Ht 6' 0 (1.83m) Wt 220 lb (99.8kg) BMI 29.83 kg/(m2). GENERAL: Well appearing, alert, in no acute distress, well-hydrated, well nourished. SKIN: Skin color, texture, turgor normal, no suspicious rashes or lesions HEAD: Normocephalic, atraumatic EYES: Anicteric sclera. Extraocular movements are intact. NECK: Supple, no adenopathy; thyroid symmetric (more content not included)... Normal [facility] NURSING PROGon 02-28-2020 NURSING PROG HNO ID: [id number] Author: Adriana Pedro (Rn) JESSENIA Pat Service: ? Author Type: Registered Nurse Type: Nursing Progress Note Filed: 02/28/2020 4:33 PM Note Text: Nursing Progress Note Patient Name: Rancho Muller Patient Location: [id number]/METHODIST JENNIE [id number] __ Daily Note: 1606: SOUND PAGED REGARDING ADMISSION ORDERS. 1632: Spoke to Regla from [facility] emergency department. Stated would put in orders. This note was completed by: Adriana Pat, RN [facility] Office Visiton 01-09-2017 Dietary management education, guidance, and counseling (procedure) yes Invalid Interpretation Code [facility] Work Phone: [phone] Documentation of current medications (procedure) Done Invalid Interpretation Code [facility] Work Phone: [phone] Fall risk assessment No [facility] Work Phone: [phone] Protein mass conc Done [facility] Work Phone: [phone] Tobacco smoking status NHIS Former smoker [facility] [employer] Work Phone: [phone] Tobacco use [facility] Former smoker Invalid Interpretation Code [facility] [employer] Work Phone: [phone] Lab Report: Lipid Profileon 04-07-2016 Cholesterol 151 mg/dL 200 [facility] [employer] Work Phone: [phone] HDL Cholesterol 40 mg/dL [facility] Work Phone: [phone] LDL Cholesterol 77 mg/dL 0-130 [facility] [employer] Work Phone: [phone] Triglyceride 169 mg/dL [facility] [employer] Work Phone: [phone] very low density lipoproteins 34 mg/dL 5-40 [facility] [employer] Work Phone: [phone] Lab Report: Liver Profileon 04-07-2016 Alanine aminotransferase (ALT) 23 U/L 12-78 [facility] [employer] Work Phone: [phone] Albumin 3.4 g/dL 3.4-5.0 [facility] [employer] Work Phone: [phone] Alkaline phosphatase (ALP) 65 U/L Invalid Interpretation Code 45-117 [facility] [employer] Work Phone: [phone] ALP enzyme act/vol (Bld) 65 U/L 45-117 [facility] [employer] Work Phone: [phone] Aspartate aminotransferase (AST) 51 U/L High 15-37 [facility] [employer] Work Phone: [phone] Bilirubin (direct) 0.19 mg/dL 0.00-0.30 [facility] Work Phone: [phone] Bilirubin (total) 1.00 mg/dL 0.20-1.00 [facility] [employer] Work Phone: [phone] Globulin 3.5 g/dL Invalid Interpretation Code 2.3-3.5 [facility] [employer] Work Phone: [phone] Globulin mass conc (S) 3.5 g/dL 2.3-3.5 [facility] [employer] Work Phone: [phone] Protein 6.9 g/dL 6.4-8.2 [facility] [employer] Work Phone: [phone] Clinical Lists Updateon 07-30 Left ventricular Ejection fraction 65 % [facility] Work Phone: [phone] Lab Report: Immunoglobulins G/A/M/Shamar 06-27-2015 IgA 241 mg/dL 91-414 [facility] Work Phone: [phone] IgG 1009 mg/dL 700-1600 [facility] Work Phone: [phone] IgM 178 mg/dL 40-230 [facility] Work Phone: [phone] IMMUNO E 2173 24 [iU]/mL 0-100 [facility] Work Phone: [phone] immunoglobulin E, serum, quantitative 24 [iU]/mL Invalid Interpretation Code 0-100 [facility] [employer] Work Phone: [phone] 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 BUN/Creatinine Ratio 10.6 mg/mg [employer] [employer] Work Phone: [phone] Calcium 8.8 mg/dL [facility] [employer] Work Phone: [phone] Chloride 101 mmol/L [facility] [employer] Work Phone: [phone] CO2 32.0 mmol/L Invalid Interpretation Code [facility] Work Phone: [phone] CO2 ppres (BldV) 32.0 mmol/L [facility] [employer] Work Phone: [phone] Creatinine 1.23 mg/dL [facility] Work Phone: [phone] Hematocrit (HCT) 42.6 % Invalid Interpretation Code [facility] Work Phone: [phone] Hematocrit Volume Fraction (Bld) 42.6 % [facility] [employer] Work Phone: [phone] Hemoglobin (HGB) 14.2 g/dL [facility] Work Phone: [phone] Platelets 183 10*3/mm3 Invalid Interpretation Code [facility] Work Phone: [phone] Platelets #/vol (Bld) 183 10*3/mm3 [facility] [employer] Work Phone: [phone] Potassium 3.9 mmol/L [facility] [employer] Work Phone: [phone] Sodium 139 mmol/L [facility] [employer] Work Phone: [phone] Urea nitrogen 13 mg/dL [facility] [employer] Work Phone: [phone] WBC #/vol (Bld) 9.7 10*3/uL [employer] Work Phone: [phone] WBC (Leukocytes) 9.7 10*3/uL Invalid Interpretation Code [employer] Work Phone: [phone]) Office Visiton 05-26-2014 cardiac risk group C [facility] [employer] Work Phone: [phone] General cardiovascular disease 10Y risk [#] Mondovi.D'Agostino N/A [employer] [facility] Work Phone: [phone]) Lab Report: Liver Profileon 05-20-2014 ALK P 68 U/L 50-136 [employer] Work Phone: [phone] GE use only - for [employer] import when terms are not otherwise specified 68 U/L Invalid Interpretation Code 50-136 [employer] Work Phone: [phone] Office Visiton 05-08-2014 BNP 240 pg/mL High [employer] Work Phone: [phone] External Other: Preferred Me thod of Contacton 11-24-2013 methcontact phone [employer] Phone: [phone] Patient's prefered method of contact phone Invalid Interpretation Code [employer] Phone: [phone] 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 Albumin/Globulin Ratio 1.0 {ratio} [employer] Work Phone: [phone] Anion gap 7 mmol/L Invalid Interpretation Code [facility] [employer] Work Phone: [phone] Anion gap molar conc 7 mmol/L [employer] [facility] [employer] Work Phone: [phone] basophils as percent of blood leukocytes, manual count 0.3 % [facility] Work Phone: [phone] eosinophils as percent of blood leukocytes, manual count 0.9 % [facility] [employer] Work Phone: [phone] Erythrocyte distribution width Ratio (RBC) 13.8 % [facility] [employer] Work Phone: [phone] Erythrocytes (RBC) 4.37 10*6/uL [facility] [employer] Work Phone: [phone] Globulin 3.5 g/dL Invalid Interpretation Code [facility] Work Phone: [phone] Globulin mass conc (S) 3.5 g/dL [facility] Work Phone: [phone] Glucose 75 mg/dL Invalid Interpretation Code [facility] Work Phone: [phone] Glucose mass conc 75 mg/dL [facility] Work Phone: [phone] Lymphocytes/100 leukocytes 17.4 % Low [facility] Work Phone: [phone] Lymphocytes/100 WBC (Bld) 17.4 % Low [facility] Work Phone: [phone] MCH 31.8 pg Invalid Interpretation Code [facility] Work Phone: [phone] MCH Entitic mass (RBC) 31.8 pg [facility] Work Phone: [phone] MCHC 34.8 g/dL Invalid Interpretation Code [facility] Work Phone: [phone] MCHC mass conc (RBC) 34.8 g/dL [facility] Work Phone: [phone] MCV 91.5 fL Invalid Interpretation Code [facility] Work Phone: [phone] MCV Entitic volume (RBC) 91.5 fL [facility] Work Phone: [phone] Monocytes/100 leukocytes 13.2 % High [facility] Work Phone: [phone] Monocytes/100 WBC (Bld) 13.2 % High [facility] Work Phone: [phone] neutrophils, band form as percent of blood leukocytes, manual count 67.8 % [facility] Work Phone: [phone] Platelet mean volume Entitic volume (Bld) 8.9 fL [facility] Work Phone: [phone] 00 PMV by Estrella 8.9 fL Invalid Interpretation Code [facility] Work Phone: [phone] RBC #/vol (Bld) 4.37 10*6/uL Low [facility] Work Phone: [phone] RDW-CA 13.8 % Invalid Interpretation Code [facility] Work Phone: Replaced Document: Kassy Young 08-15-2012 BUN (urea nitrogen) Sinus Bradycardia -Right bundle branch block . ABNORMAL Invalid Interpretation Code [employer] Work Phone: EKG QRS axis 27 deg [employer] Work Phone: P [employer] 64 deg [employer] [employer] Work Phone: P wave axis, electrocardiogram 64 deg Invalid Interpretation Code [employer] Work Phone: DC Interval 158 ms [employer] Work Phone: DC interval, electrocardiogram 158 ms Invalid Interpretation Code [employer] Work Phone: Pulse (Heart Rate) 50 /min Invalid Interpretation Code [employer] Work Phone: Pulse (Heart Rate) 416 ms Invalid Interpretation Code [employer] Work Phone: QRS axis, electrocardiogram 27 deg Invalid Interpretation Code [employer] Work Phone: QRS Duration 164 ms [employer] Work Phone: QRS duration, electrocardiogram 164 ms Invalid Interpretation Code [employer] Work Phone: QT Interval new path ms [employer] Work Phone: QT interval, electrocardiogram new path ms Invalid Interpretation Code [employer] Work Phone: T [employer] 50 deg [employer] Work Phone: T wave axis, electrocardiogram 50 deg Invalid Interpretation Code [employer] Work Phone: Urea nitrogen mass conc Sinus Bradycardia -Right bundle branch block . ABNORMAL [employer] Work Phone: Vital Signs Date Time Vital Sign Value Performing Clinician Faci dereje 01-03-2025 10:32-0400 Body height 182.[address] Mariela King MD Work Phone: [facility] 01-03-2025 10:32-0400 Body mass index (BMI) [Ratio] 29.7 kg/m2 Dr. Mariela King MD Work Phone: [facility] 01-03-2025 10:32-0400 Body weight 99.[address] Mariela King MD Work Phone: [facility] 01-03-2025 10:32-0400 Diastolic blood pressure 69 mm[Hg] Dr. Mariela King MD Work Phone: [facility] 01-03-2025 10:32-0400 Heart rate 60 /min Dr. Mariela King MD Work Phone: [facility] 01-03-2025 10:32-0400 Respiratory rate 16 /min Dr. Mariela King MD Work Phone: [phone] [address] 01-03-2025 10:32-0400 SaO2% (BldA) [Mass fraction] 92 % Dr. Mariela King MD Work Phone: [phone] [place] [address] 01-03-2025 10:32-0400 Systolic blood pressure 172 mm[Hg] Dr. Mariela King MD Work Phone: [phone] [place] [address] 01-03-2023 12:10-0400 Diastolic blood pressure 69 mm[Hg] Dr. Mariela King Work Phone: [phone] [place] [address] 01-03-2023 12:10-0400 Heart rate 72 /min Dr. Mariela King Work Phone: [facility] 01-03-2023 12:10-0400 Respiratory rate 15 /min Dr. Mariela King Work Phone: [facility] 01-03-2023 12:10-0400 SaO2% (BldA) [Mass fraction] 98 % Dr. Mariela King Work Phone: [facility] 01-03-2023 12:10-0400 Systolic blood pressure 127 mm[Hg] Dr. Mariela King Work Phone: [facility] 01-03-2023 08:14-0400 Body height 182.[address] Mariela King Work Phone: [facility] 01-03-2023 08:14-0400 Body temperature 97.1 [degF] Dr. Mariela King Work Phone: [facility] 10-24-2022 11:02-0400 Body mass index (BMI) [Ratio] 29.8 kg/m2 Dr. Mariela King Work Phone: [facility] 10-24-2022 11:02-0400 Body weight 99.[address] Mariela King Work Phone: [facility] 10-24-2022 11:02-0400 Diastolic blood pressure 78 mm[Hg] Dr. Mariela King Work Phone: [facility] 10-24-2022 11:02-0400 Heart rate 62 /min Dr. Mariela King Work Phone: [facility] 10-24-2022 11:02-0400 Respiratory rate 18 /min Dr. Mariela King Work Phone: [facility] 10-24-2022 11:02-0400 SaO2% (BldA) [Mass fraction] 94 % Dr. Mariela King Work Phone: [facility] 10-24-2022 11:02-0400 Systolic blood pressure 135 mm[Hg] Dr. Mariela King Work Phone: [facility] 02-22-2022 09:56-0400 Body height 182.[address] Mariela King Work Phone: [facility] Work Phone: 02-22-2022 09:56-0400 Diastolic blood pressure 70 mm[Hg] Dr. Mariela King Work Phone: [facility] Work Phone: 02-22-2022 09:56-0400 Systolic blood pressure 130 mm[Hg] Dr. Mariela King Work Phone: [facility] Work Phone: 02-22-2022 09:56-0400 Body mass index (BMI) [Ratio] 29.8 kg/m2 Dr. Mariela King Work Phone: [facility] Work Phone: 02-22-2022 09:56-0400 Body weight 99.[address] Mariela King Work Phone: [facility] Work Phone: 02-22-2022 09:56-0400 Heart rate 67 /min Dr. Mariela King Work Phone: [facility] Work Phone: 02-22-2022 09:56-0400 Respiratory rate 18 /min Dr. Mairela King Work Phone: [facility] Work Phone: 02-22-2022 09:56-0400 SaO2% (BldA) [Mass fraction] 95 % Dr. Mariela King Work Phone: [facility] Work Phone: 08-25-2021 09:00-0400 Body height 182.[address] Mariela King Work Phone: [facility] Work Phone: 08-25-2021 09:00-0400 Body mass index (BMI) [Ratio] 29.2 kg/m2 Dr. Mariela King Work Phone: [facility] Work Phone: 08-25-2021 09:00-0400 Body weight 97.[address] Mariela King Work Phone: [facility] Work Phone: 08-25-2021 09:00-0400 Diastolic blood pressure 75 mm[Hg] Dr. Mariela King Work Phone: [facility] Work Phone: 08-25-2021 09:00-0400 Heart rate 71 /min Dr. Mariela King Work Phone: [facility] Work Phone: 08-25-2021 09:00-0400 Respiratory rate 18 /min Dr. Mariela King Work Phone: [facility] Work Phone: 08-25-2021 09:00-0400 SaO2% (BldA) [Mass fraction] 94 % Dr. Mariela King Work Phone: [facility] Work Phone: 08-25-2021 09:00-0400 Systolic blood pressure 140 mm[Hg] Dr. Mariela King Work Phone: [facility] Work Phone: 07-19-2021 20:05-0400 Respiratory rate 18 /min Dr. Mariela King Work Phone: [facility] Work Phone: 07-19-2021 19:15-0400 Diastolic blood pressure 76 mm[Hg] Dr. Mariela King Work Phone: [facility] Work Phone: 07-19-2021 19:15-0400 Heart rate 68 /min Dr. Mariela King Work Phone: [facility] Work Phone: 07-19-2021 19:15-0400 SaO2% (BldA) [Mass fraction] 98 % Dr. Mariela King Work Phone: [facility] Work Phone: 07-19-2021 19:15-0400 Systolic blood pressure 156 mm[Hg] Dr. Mariela King Work Phone: [facility] Work Phone: 07-19-2021 17:24-0400 Body height 182.[address] Mariela King Work Phone: [facility] Work Phone: 07-19-2021 17:24-0400 Body mass index (BMI) [Ratio] 29.2 kg/m2 Dr. Mariela King Work Phone: [facility] Work Phone: 07-19-2021 17:24-0400 Body temperature 97.2 [degF] Dr. Mariela King Work Phone: [facility] Work Phone: 07-19-2021 17:24-0400 Body weight 97.[address] Mariela King Work Phone: [facility] Work Phone: 05-24-2021 08:29-0500 Body mass index (BMI) [Ratio] 29.1 kg/m2 Dr. Mariela King Work Phone: [facility] Work Phone: 05-24-2021 08:29-0500 Body weight 97.[address] Mariela King Work Phone: [facility] Work Phone: 05-24-2021 08:29-0500 Diastolic blood pressure 59 mm[Hg] Dr. Mariela King Work Phone: [facility] Work Phone: 05-24-2021 08:29-0500 Heart rate 57 /min Dr. Mariela King Work Phone: [facility] Work Phone: 05-24-2021 08:29-0500 Respiratory rate 18 /min Dr. Mariela King Work Phone: [facility] Work Phone: 05-24-2021 08:29-0500 SaO2% (BldA) [Mass fraction] 97 % Dr. Mariela King Work Phone: [facility] Work Phone: 05-24-2021 08:29-0500 Systolic blood pressure 104 mm[Hg] Dr. Mariela King Work Phone: [facility] Work Phone: 04-23-2021 10:16-0500 Body temperature 98.1 [degF] Dr. Mariela King Work Phone: [facility] Work Phone: 04-23-2021 10:16-0500 Diastolic blood pressure 57 mm[Hg] Dr. Mariela King Work Phone: [facility] Work Phone: 04-23-2021 10:16-0500 Heart rate 64 /min Dr. Mariela King Work Phone: [facility] Work Phone: 04-23-2021 10:16-0500 Respiratory rate 16 /min Dr. Mariela King Work Phone: [facility] Work Phone: 04-23-2021 10:16-0500 SaO2% (BldA) [Mass fraction] 92 % Dr. Mariela King Work Phone: [facility] Work Phone: 04-23-2021 10:16-0500 Systolic blood pressure 146 mm[Hg] Dr. Mariela King Work Phone: [facility] Work Phone: 04-21-2021 11:27-0500 Body weight 97.[address] Mariela King Work Phone: [facility] Work Phone: 03-26-2021 16:54-0500 Body mass index (BMI) [Ratio] 29.6 kg/m2 Dr. Mariela King Work Phone: [facility] Work Phone: 03-26-2021 13:39-0500 Body temperature 97.7 [degF] Dr. Mariela King Work Phone: [facility] Work Phone: 03-26-2021 13:39-0500 Diastolic blood pressure 61 mm[Hg] Dr. Mariela King Work Phone: [facility] Work Phone: 03-26-2021 13:39-0500 Heart rate 91 /min Dr. Mariela King Work Phone: [facility] Work Phone: 03-26-2021 13:39-0500 Respiratory rate 18 /min Dr. Mairela King Work Phone: [facility] Work Phone: 03-26-2021 13:39-0500 SaO2% (BldA) [Mass fraction] 92 % Dr. Mariela King Work Phone: [facility] Work Phone: 03-26-2021 13:39-0500 Systolic blood pressure 148 mm[Hg] Dr. Mariela King Work Phone: [facility] Work Phone: 03-23-2021 13:36-0500 Body weight [address] Mariela King Work Phone: [facility] Work Phone: 03-23-2021 05:39-0500 Body mass index (BMI) [Ratio] 29.6 kg/m2 Dr. Mariela King Work Phone: [facility] Work Phone: 01-09-2017 15:50-0400 BMI (Body Mass Index) 28.61 kg/m2 [facility] Work Phone: 01-09-2017 15:50-0400 BP Diastolic 60 mm[Hg] [facility] Work Phone: 01-09-2017 15:50-0400 BP Systolic 134 mm[Hg] [facility] Work Phone: 01-09-2017 15:50-0400 Height 182.88 cm [facility] Work Phone: 01-09-2017 15:50-0400 Pulse (Heart Rate) 64 /min [facility] Work Phone: 01-09-2017 15:50-0400 Respiratory Rate 18 /min [facility] Work Phone: 01-09-2017 15:50-0400 Weight 95.71 kg [facility] Work Phone: 04-06-2016 14:49-0500 BSA (Body Surface Area) 2.2 m2 [facility] Work Phone: 05-26-2014 11:03-0500 Pulse Oximetry 98 % [facility] Work Phone: 08-15-2012 10:28-0400 Heart rate 50 /min [facility] Work Phone: 08-15-2012 10:28-0400 Heart rate 416 ms [facility] Work Phone: 07-25-2011 09:15-0400 Height 182.88 cm [facility] Work Phone: Encounters Encounter Date Encounter Type Care Provider Facility Start: 01-20-2025 Non-patient / Non-visit Dr. Mariela kern MD -[facility] Start: 01-20-2025 End: 01-20-[address] Mariela King MD Work Phone: -Cardiovascular Services Start: 01-20-2025 End: 01-20-[address] Mark Paris MD -Cardiovascular Services Work Phone: Start: 01-20-2025 End: 01-20-2025 ambulatory Mariela King Facility:[facility] Start: 01-03-2025 End: 01-03-[address] Mark Paris MD -[facility] Work Phone: Start: 01-03-2025 End: 01-03-[address] Mariela King MD Work Phone: -[facility] Start: 10-16-2024 End: 10-16-[address] Mariela King MD -Physical Therapy Work Phone: Start: 10-16-2024 End: 10-16-[address] Mariela King MD Work Phone: -Physical Therapy Start: 01-27-2023 End: 01-27-[address] Mariela King Work Phone: [facility] Work Phone: Start: 01-27-2023 End: 01-27-[address] Mariela King Work Phone: [facility] Work Phone: Start: 01-03-2023 End: 01-03-2023 Emergency department patient visit Dr. Mariela King Work Phone: [facility]-Emergency Department Work Phone: Start: 10-24-2022 End: 10-24-[address] Mariela King Work Phone: [facility] Work Phone: Start: 02-22-2022 End: 02-22-[address] Mariela King Work Phone: [facility] Work Phone: Start: 02-22-2022 End: 02-22-[address] Mariela King Work Phone: [facility] Start: 2021 End: [address] Mariela King Work Phone: [facility] Start: 09-09-2021 Non-patient / Non-visit Dr. Dylan King Work Phone: [facility] Start: 09-09-2021 End: 09-09-[address] [facility] Start: 08-30-2021 End: 08-30-[address] Mariela King Work Phone: [facility] Start: 08-25-2021 End: 08-25-[address] Mariela King Work Phone: [facility] Start: 07-19-2021 End: 07-19-2021 Emergency department patient visit Dr. Mariela King Work Phone: [facility]Emergency Department Start: 06-25-2021 End: 06-25-[address] [facility] Start: 06-25-[address] [facility] Start: 05-24-2021 End: 05-24-[address] Mariela King Work Phone: [facility] Start: 05-20-2021 End: 05-20-[address] Mariela King Work Phone: [facility] Start: 05-05-2021 End: 05-05-[address] Mariela King Work Phone: [facility] Start: 03-26-2021 End: 04-23-2021 Evaluation and management of inpatient Dr. Mariela King Work Phone: [facility]-Transitional Care Unit Start: 03-26-2021 Non-patient / Non-visit Dr. Dylan King Work Phone: [facility] Inpatient Physicians Start: 03-25-2021 Non-patient / Non-visit Dr. Dylan King Work Phone: [facility] Inpatient Physicians Start: 03-24-2021 Non-patient / Non-visit Dr. Dylan King Work Phone: [facility] Inpatient Physicians Start: 03-23-2021 Non-patient / Non-visit Dr. Dylan King Work Phone: [facility] Inpatient Physicians Start: 03-23-2021 Non-patient / Non-visit Dr. Dylan King Work Phone: [facility] Start: 03-22-2021 Non-patient / Non-visit Dr. Dylan King Work Phone: [facility] Inpatient Physicians Start: 03-22-2021 End: 03-26-2021 Evaluation and management of inpatient Dr. Mariela King Work Phone: [facility]-Medical Surgical 3 Start: 03-24-2020 Patient encounter procedure SELF SELF Facility:[facility] Procedures Date Procedure Procedure Detail Performing Clinician Start: 01-27-2023 Plain chest X-ray Dr. Dez King Work Phone: Start: 01-03-2023 Plain chest X-ray Dr. Dez King Work Phone: Start: 2021 Plain chest X-ray Dr. Dez King Work Phone: Start: 09-09-2021 Cardiovascular stres s test using pharmacologic stress agent Dr. Mariela King Work Phone: Start: 07-19-2021 Plain chest X-ray Dr. Dez King Work Phone: Start: 04-20-2021 Plain x-ray of pelvi s and lower extremity Dr. Mariela King Work Phone: Start: 04-19-[address] Mariela King Work Phone: Start: 04-08-2021 Plain x-ray of pelvi s and lower extremity Dr. Mariela King Work Phone: Start: 03-23-2021 Trochanteric Fixatio n Nail, Synthes (Left) Dr. Mariela King Work Phone: Start: 03-23-2021 O.R. Fluoro for C-Arm D haim King Work Phone: Start: 03-23-2021 Plain X-ray of hip Dr. Mariela King Work Phone: Start: 03-22-2021 Plain chest X-ray Dr. Dez King Work Phone: Start: 03-22-2021 Plain x-ray of pelvi s and lower extremity Dr. Mariela King Work Phone: Start: 03-22-2021 SARS-CoV-2 Antigen (Rapid) Dr. Mariela King Work Phone: Start: 01-09-2017 End: 01-09-2017 Dietary management education, guidance, and counseling [facility] Start: 01-09-2017 End: 01-09-2017 Follow Up Appt 9 months Garth Troy MD Start: 01-09-2017 End: 01-09-2017 PFM Garth Troy MD Start: 04-06-2016 End: 04-08-2016 *Hepatic Function Panel Garth Troy MD Start: 04-06-2016 End: 04-06-2016 Follow Up Appt 9 months Garth Troy MD Start: 04-06-2016 End: 04-08-2016 Lipid panel [AGGREGATE] Garth Troy MD Start: 04-06-2016 End: 04-06-2016 PFM Garth Troy MD Start: 08-03-2015 End: 08-03-2015 Follow Up Appt 6 months Garth Troy MD Start: 08-03-2015 End: 08-03-2015 PFM Garth Troy MD Start: 06-25-2015 End: 07-30-2015 *Hepatic Function Panel Garth Troy MD Start: 06-25-2015 End: 07-30-2015 Lipid panel [AGGREGATE] Garth Troy MD Start: 12-29-2014 End: 07-31-2015 *Hepatic Function Panel Garth Troy MD Start: 12-29-2014 End: 12-30-2014 Documentation of current medications Garth Troy MD Start: 12-29-2014 End: 07-31-2015 Lipid panel [AGGREGATE] Garth Troy MD Start: 11-18-2014 End: 12-23-2014 *Hepatic Function Panel Garth Troy MD Start: 11-18-2014 End: 12-23-2014 Lipid panel [AGGREGATE] Garth Troy MD Start: 05-26-2014 End: 05-26-2014 Follow Up Appt 6 months Garth Troy MD Start: 05-26-2014 End: 05-26-2014 PFM Garth Troy MD Start: 05-01-2014 End: 05-26-2014 *Hepatic Function Panel Garth Troy MD Start: 05-01-2014 End: 05-26-2014 Lipid panel [AGGREGATE] Garth Troy MD Start: 11-11-2013 End: 11-14-2013 *Hepatic Function Panel Garth Troy MD Start: 11-11-2013 End: 11-11-2013 Follow Up Appt 6 months Garth Troy MD Start: 11-11-2013 End: 11-14-2013 Lipid panel [AGGREGATE] Garth Troy MD Start: 11-11-2013 End: 11-11-2013 PFM Garth Troy MD Start: 05-06-2013 End: 11-25-2013 *Hepatic Function Panel Garth Troy MD Start: 05-06-2013 End: 05-06-2013 Follow Up Appt 6 months Garth Troy MD Start: 05-06-2013 End: 11-25-2013 Lipid panel [AGGREGATE] Garth Troy MD Start: 05-06-2013 End: 05-06-2013 PFM Garth Troy MD Start: 12-30-2012 End: 05-26-2014 *Hepatic Function Panel Garth Troy MD Start: 12-30-2012 End: 05-26-2014 Lipid panel [AGGREGATE] Garth Troy MD Start: 10-04-2012 End: 10-04-2012 Follow Up Appt 6 months Garth Troy MD Start: 10-04-2012 End: 10-04-2012 PFM Garth Troy MD Start: 08-15-2012 End: 08-15-2012 Electrocardiogram, complete Garth Troy MD Start: 08-15-2012 End: 08-15-2012 Follow Up Appt 6 weeks Garth Troy MD Start: 08-15-2012 End: 08-15-2012 PFM Garth Troy MD Start: 06-29-2012 End: 07-27-2012 *Hepatic Function Panel Garth Troy MD Start: 06-29-2012 End: 07-27-2012 Lipid panel [AGGREGATE] Garth Troy MD Start: 01-23-2012 End: 07-25-2012 Echocardiography Garth Troy MD Start: 01-23-2012 End: 01-23-2012 Follow Up Appt 6 months Garth Troy MD Start: 01-23-2012 End: 07-25-2012 Lipid panel [AGGREGATE] Garth Troy MD Start: 01-23-2012 End: 07-25-2012 Nuclear stress test -exercise Garth Troy MD Start: 01-20-2012 End: 07-25-2012 Echocardiography Garth Troy MD Start: 01-20-2012 End: 07-25-2012 Lipid panel [AGGREGATE] Garth Troy MD Start: 07-25-2011 End: 07-25-2011 Electrocardiogram, complete Garth Troy MD Start: 07-25-2011 End: 07-25-2011 Follow Up Appt 6 months Garth Troy MD Start: 06-29-2000 History of coronary artery bypass grafting Aortocoronary bypass status Dr. 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 Mariela King Work Phone: Plan of Treatment Date Care Activity Detail Author Start: 01-03-2023 [facility] Start: 07-19-2021 [facility] Work Phone: Start: 10-09-2017 End: 10-09-2017 Appointment Appointment [facility] Work Phone: Start: 01-09-2017 End: 01-09-2017 Appointment Appointment [facility] Work Phone: Start: 01-09-2017 End: 01-09-2017 *Hepatic Function Panel *Hepatic Function Panel [facility] Work Phone: Start: 01-09-2017 End: 01-09-2017 Follow Up Appt 9 months Follow Up Appt 9 months [facility] Work Phone: Start: 01-09-2017 End: 01-09-2017 Lipid panel [AGGREGATE] *Lipid Profile CC PCP [facility] Work Phone: Start: 01-09-2017 End: 01-09-2017 PFM PFM [facility] Work Phone: Start: 10-06-2016 End: 04-08-2016 *Hepatic Function Panel *Hepatic Function Panel [facility] Work Phone: Start: 10-06-2016 End: 04-08-2016 Lipid panel [AGGREGATE] *Lipid Profile CC PCP [facility] Work Phone: Start: 04-06-2016 End: 04-08-2016 *Hepatic Function Panel *Hepatic Function Panel [facility] Work Phone: Start: 04-06-2016 End: 04-06-2016 Follow Up Appt 9 months Follow Up Appt 9 months [facility] Work Phone: Start: 04-06-2016 End: 04-08-2016 Lipid panel [AGGREGATE] *Lipid Profile CC PCP [facility] Work Phone: Start: 04-06-2016 End: 04-06-2016 PFM PFM [facility] Work Phone: Start: 08-03-2015 End: 08-03-2015 Echocardiography Echocardiogram (complete) [facility] Work Phone: Start: 08-03-2015 End: 08-03-2015 Follow Up Appt 6 months Follow Up Appt 6 months [facility] Work Phone: Start: 08-03-2015 End: 08-03-2015 PFM PFM [facility] Work Phone: Start: 06-25-2015 End: 07-30-2015 *Hepatic Function Panel *Hepatic Function Panel [facility] Work Phone: Start: 06-25-2015 End: 07-30-2015 Lipid panel [AGGREGATE] *Lipid Profile CC PCP [facility] Work Phone: Start: 12-29-2014 End: 07-31-2015 *Hepatic Function Panel *Hepatic Function Panel [facility] Work Phone: Start: 12-29-2014 End: 12-29-2014 Follow Up Appt 6 months Follow Up Appt 6 months [facility] Work Phone: Start: 12-29-2014 End: 07-31-2015 Lipid panel [AGGREGATE] *Lipid Profile CC PCP [facility] Work Phone: Start: 12-29-2014 End: 12-29-2014 MMM MMM [facility] Work Phone: Start: 11-18-2014 End: 12-23-2014 *Hepatic Function Panel *Hepatic Function Panel [facility] Work Phone: Start: 11-18-2014 End: 12-23-2014 Lipid panel [AGGREGATE] *Lipid Profile CC PCP [facility] Work Phone: Start: 05-26-2014 End: 05-26-2014 Follow Up Appt 6 months Follow Up Appt 6 months [facility] Work Phone: Start: 05-26-2014 End: 05-26-2014 PFM PFM [facility] Work Phone: Start: 05-01-2014 End: 05-26-2014 *Hepatic Function Panel *Hepatic Function Panel [facility] Work Phone: Start: 05-01-2014 End: 05-26-2014 Lipid panel [AGGREGATE] *Lipid Profile CC PCP [facility] Work Phone: Start: 11-11-2013 End: 11-14-2013 *Hepatic Function Panel *Hepatic Function Panel [facility] Work Phone: Start: 11-11-2013 End: 11-11-2013 Follow Up Appt 6 months Follow Up Appt 6 months [facility] Work Phone: Start: 11-11-2013 End: 11-14-2013 Lipid panel [AGGREGATE] *Lipid Profile CC PCP [facility] Work Phone: Start: 11-11-2013 End: 11-11-2013 PFM PFM [facility] Work Phone: Start: 05-06-2013 End: 11-25-2013 *Hepatic Function Panel *Hepatic Function Panel [facility] Work Phone: Start: 05-06-2013 End: 05-06-2013 Follow Up Appt 6 months Follow Up Appt 6 months [facility] Work Phone: Start: 05-06-2013 End: 11-25-2013 Lipid panel [AGGREGATE] *Lipid Profile CC PCP [facility] Work Phone: Start: 05-06-2013 End: 05-06-2013 PFM PFM [facility] Work Phone: Start: 12-30-2012 End: 05-26-2014 *Hepatic Function Panel *Hepatic Function Panel [facility] Work Phone: Start: 12-30-2012 End: 05-26-2014 Lipid panel [AGGREGATE] *Lipid Profile [facility] Work Phone: Start: 10-04-2012 End: 10-04-2012 Follow Up Appt 6 months Follow Up Appt 6 months [facility] Work Phone: Start: 10-04-2012 End: 10-04-2012 PFM PFM [facility] Work Phone: Start: 08-15-2012 End: 08-15-2012 Electrocardiogram, complete EKG (In office) [facility] Work Phone: Start: 08-15-2012 End: 08-15-2012 Follow Up Appt 6 weeks Follow Up Appt 6 weeks [facility] Work Phone: Start: 08-15-2012 End: 08-15-2012 PFM PFM [facility] Work Phone: Start: 06-29-2012 End: 07-27-2012 *Hepatic Function Panel *Hepatic Function Panel [facility] Work Phone: Start: 06-29-2012 End: 07-27-2012 Lipid panel [AGGREGATE] *Lipid Profile [facility] Work Phone: Start: 01-23-2012 End: 01-23-2012 Echocardiography Echocardiogram (complete) [facility] Work Phone: Start: 01-23-2012 End: 01-23-2012 Electrocardiogram, complete EKG (In office) [facility] Work Phone: Start: 01-23-2012 End: 01-23-2012 Follow Up Appt 6 months Follow Up Appt 6 months [facility] Work Phone: Start: 01-23-2012 End: 01-23-2012 Nuclear stress test -exercise Nuclear stress test -exercise [facility] Work Phone: Start: 01-20-2012 End: 07-25-2012 *Hepatic Function Panel *Hepatic Function Panel [facility] Work Phone: Start: 01-20-2012 End: 07-25-2012 Lipid panel [AGGREGATE] *Lipid Profile [facility] Work Phone: Start: 07-25-2011 End: 07-25-2011 Electrocardiogram, complete EKG (In office) [facility] Work Phone: Start: 07-25-2011 End: 07-25-2011 Follow Up Appt 6 months Follow Up Appt 6 months [facility] Work Phone: Hepatic function panel [facility] Lipid 1996 panel - S bruce or Plasma [facility] Patient Education [facility] Work Phone: Patient referral [facility] Work Phone: [place] Carotid arteries [facility] Immunizations Immunization Date Immunization Notes Care Provider Fa jania 02-02-[address] Mariela King Work Phone: [facility] 06-18-2020 Covid (Moderna) Dr. Mariela Linder Work Phone: [facility] 05-21-2020 Timoid (Moderna) Dr. Mariela Linder Work Phone: [facility] 01-30-2020 influenza, injectabl e, quadrivalent, preservative free Dr. Mariela King Work Phone: [facility] 01-30-2020 influenza, seasonal, injectable Dr. Mraiela King Work Phone: [facility] 01-10-2017 influenza, injectabl e, quadrivalent, preservative free Dr. Mariela King Work Phone: [facility] 01-10-2017 influenza, seasonal, injectable Dr. Mariela King Work Phone: [facility] Payers Date Payer Category Payer Self-pay [id number] 2020 Medicare [id number] 2015 Private Health Insurance 101 [id number] 1935 Unknown [id number] Medicare [id number] Unknown [id number] Unknown [id number] Unknown [id number] Unknown [id number] Social History Date Type Detail Facility Start: 07-19-2021 End: 01-03-2023 Tobacco smoking status NHIS Unknown if ever smoked [facility] Start: 03-18-2020 None [facility] Start: 03-18-2020 [facility] Start: 03-23-2020 [facility]smoker [facility] Start: 1935 Sex Assigned At Male [facility] Start: 01-03-2023 End: 01-03-2025 Tobacco smoking status NHIS Ex-smoker (finding) [facility] Sex Male [facility] Medical Equipment Procedure Code Equipment Code Equipment Origin al Text Equipment Identifier Dates 3.0MM REAMING WOLF FDA Start: 04-10-2017 3.2MM GUIDE WIRE FDA Start: 04-10-2017 4.2MM THREE FLUT ED DRILL FDA Start: 04-10-2017 5.0MM LOCKING SCREW FDA Start : 04-10-2017 5.0MM LOCKING SCREW FDA Start : 04-10-2017 12MM CANNULATED TFNA FDA Star t: 04-10-2017 TFNA 105MM HELIC AL BLADE FDA Start: 04-10-2017 TFNA FENESTRATED HELICAL BLADE FDA Start: 03-23-2021 TI LOCKING SCREW FDA Start: 03-23-2021 ti moises tfna FDA Start: 03-23-2021 3.0MM REAMING WOLF FDA Start: 04-10-2017 3.2MM GUIDE WIRE FDA Start: 04-10-2017 4.2MM THREE FLUT ED DRILL FDA Start: 04-10-2017 5.0MM LOCKING SCREW FDA Start : 04-10-2017 5.0MM LOCKING SCREW FDA Start : 04-10-2017 12MM CANNULATED TFNA FDA Star t: 04-10-2017 TFNA 105MM HELIC AL BLADE FDA Start: 04-10-2017 TFNA FENESTRATED HELICAL BLADE FDA Start: 03-23-2021 TI LOCKING SCREW FDA Start: 03-23-2021 ti moises tfna FDA Start: 03-23-2021 3.0MM REAMING WOLF FDA Start: 04-10-2017 3.2MM GUIDE WIRE FDA Start: 04-10-2017 4.2MM THREE FLUT ED DRILL FDA Start: 04-10-2017 5.0MM LOCKING SCREW FDA Start : 04-10-2017 5.0MM LOCKING SCREW FDA Start : 04-10-2017 12MM CANNULATED TFNA FDA Star t: 04-10-2017 TFNA 105MM HELIC AL BLADE FDA Start: 04-10-2017 TFNA FENESTRATED HELICAL BLADE FDA Start: 03-23-2021 TI LOCKING SCREW FDA Start: 03-23-2021 ti moises tfna FDA Start: 03-23-2021 12MM CANNULATED TFNA FDA Star t: 04-10-2017 3.0MM REAMING WOLF FDA Start: 04-10-2017 3.2MM GUIDE WIRE FDA Start: 04-10-2017 4.2MM THREE FLUT ED DRILL FDA Start: 04-10-2017 5.0MM LOCKING SCREW FDA Start : 04-10-2017 5.0MM LOCKING SCREW FDA Start : 04-10-2017 TFNA 105MM HELIC AL BLADE FDA Start: 04-10-2017 TFNA FENESTRATED HELICAL BLADE FDA Start: 03-23-2021 TI LOCKING SCREW FDA Start: 03-23-2021 ti moises tfna FDA Start: 03-23-2021 12MM CANNULATED TFNA FDA Star t: 04-10-2017 3.0MM REAMING WOLF FDA Start: 04-10-2017 3.2MM GUIDE WIRE FDA Start: 04-10-2017 4.2MM THREE FLUT ED DRILL FDA Start: 04-10-2017 5.0MM LOCKING SCREW FDA Start : 04-10-2017 5.0MM LOCKING SCREW FDA Start : 04-10-2017 TFNA 105MM HELIC AL BLADE FDA Start: 04-10-2017 TFNA FENESTRATED HELICAL BLADE FDA Start: 03-23-2021 TI LOCKING SCREW FDA Start: 03-23-2021 ti moises tfna FDA Start: 03-23-2021 12MM CANNULATED TFNA FDA Star t: 04-10-2017 3.0MM REAMING WOLF FDA Start: 04-10-2017 3.2MM GUIDE WIRE FDA Start: 04-10-2017 4.2MM THREE FLUT ED DRILL FDA Start: 04-10-2017 5.0MM LOCKING SCREW FDA Start : 04-10-2017 5.0MM LOCKING SCREW FDA Start : 04-10-2017 TFNA 105MM HELIC AL BLADE FDA Start: 04-10-2017 TFNA FENESTRATED HELICAL BLADE FDA Start: 03-23-2021 TI LOCKING SCREW FDA Start: 03-23-2021 ti moises tfna FDA Start: 03-23-2021 12MM CANNULATED TFNA FDA Star t: 04-10-2017 3.0MM REAMING WOLF FDA Start: 04-10-2017 3.2MM GUIDE WIRE FDA Start: 04-10-2017 4.2MM THREE FLUT ED DRILL FDA Start: 04-10-2017 5.0MM LOCKING SCREW FDA Start : 04-10-2017 5.0MM LOCKING SCREW FDA Start : 04-10-2017 TFNA 105MM HELIC AL BLADE FDA Start: 04-10-2017 TFNA FENESTRATED HELICAL BLADE FDA Start: 03-23-2021 TI LOCKING SCREW FDA Start: 03-23-2021 ti moises tfna FDA Start: 03-23-2021 12MM CANNULATED TFNA FDA Star t: 04-10-2017 3.0MM REAMING WOLF FDA Start: 04-10-2017 3.2MM GUIDE WIRE FDA Start: 04-10-2017 4.2MM THREE FLUT ED DRILL FDA Start: 04-10-2017 5.0MM LOCKING SCREW FDA Start : 04-10-2017 5.0MM LOCKING SCREW FDA Start : 04-10-2017 TFNA 105MM HELIC AL BLADE FDA Start: 04-10-2017 TFNA FENESTRATED HELICAL BLADE FDA Start: 03-23-2021 TI LOCKING SCREW FDA Start: 03-23-2021 ti moises tfna FDA Start: 03-23-2021 12MM CANNULATED TFNA FDA Star t: 04-10-2017 3.0MM REAMING WOLF FDA Start: 04-10-2017 3.2MM GUIDE WIRE FDA Start: 04-10-2017 4.2MM THREE FLUT ED DRILL FDA Start: 04-10-2017 5.0MM LOCKING SCREW FDA Start : 04-10-2017 5.0MM LOCKING SCREW FDA Start : 04-10-2017 TFNA 105MM HELIC AL BLADE FDA Start: 04-10-2017 TFNA FENESTRATED HELICAL BLADE FDA Start: 03-23-2021 TI LOCKING SCREW FDA Start: 03-23-2021 ti moises tfna FDA Start: 03-23-2021 12MM CANNULATED TFNA FDA Star t: 04-10-2017 3.0MM REAMING WOLF FDA Start: 04-10-2017 3.2MM GUIDE WIRE FDA Start: 04-10-2017 4.2MM THREE FLUT ED DRILL FDA Start: 04-10-2017 5.0MM LOCKING SCREW FDA Start : 04-10-2017 5.0MM LOCKING SCREW FDA Start : 04-10-2017 TFNA 105MM HELIC AL BLADE FDA Start: 04-10-2017 TFNA FENESTRATED HELICAL BLADE FDA Start: 03-23-2021 TI LOCKING SCREW FDA Start: 03-23-2021 ti moises tfna FDA Start: 03-23-2021 12MM CANNULATED TFNA FDA Star t: 04-10-2017 3.0MM REAMING WOLF FDA Start: 04-10-2017 3.2MM GUIDE WIRE FDA Start: 04-10-2017 4.2MM THREE FLUT ED DRILL FDA Start: 04-10-2017 5.0MM LOCKING SCREW FDA Start : 04-10-2017 5.0MM LOCKING SCREW FDA Start : 04-10-2017 TFNA 105MM HELIC AL BLADE FDA Start: 04-10-2017 TFNA FENESTRATED HELICAL BLADE FDA Start: 03-23-2021 TI LOCKING SCREW FDA Start: 03-23-2021 ti moises tfna FDA Start: 03-23-2021 Functional Status Date Assessment Result Facility 04-23-2021 Functional status Activity Abili ty With Assist of 1 [facility] Work Phone: 04-17-2021 Functional status Chair [facility] Work Phone: 03-26-2021 Functional status Ambulates;Bathroom Priv ilege [facility] Work Phone: Mental Status Date Assessment Result Facility 01-03-2023 Cognitive function Voice/Name [facility] Work Phone: 07-19-2021 Cognitive function Voice/Name [facility] Work Phone: 04-23-2021 Cognitive function Voice/Name [facility] Work Phone: 04-10-2021 Cognitive function Appropriate [facility] Work Phone: 03-26-2021 Cognitive function Voice/Name [facility] Work Phone: Clinical Notes 02-29-2020 to 01-03-2025 Note Date & Type Note Facility 01-03-2025 Evaluation note Diagnosis Onset Date Resolution Hyperlipidemia acute January 03, 2025 10:27am PVD (peripheral vascular disease) acute January 03 10:27am Atherosclerotic heart disease of [place] coronary artery without angina pectoris chronic January 03 10:27am Hypertension chronic December 10:27am [facility] Work Phone: [phone]) 820-984309-05-2023 Discharge summary Author Toy Crandall [facility] January 03, 2023 11:50am Note Date/Time January 03, 2023 9:52am [facility] Medical Records Department [address] [place] [address] Emergency Department Summary 01/03/23 MR#: [id number] Acct: [id number] Name: RANCHO MULLER Rep #:[id number] : 1935 [id number] From: Toy Crandall MD PCP: Dr. Mariela King MD Status:REG ER Location: ED HPI History of Present Illness Chief Complaint: Chest Pain Detail of Chief Complaint: Epigastric pain with shortness of breath Onset/Context/Timing Onset: Today (At approximately 07 100) Activity at onset: sudden Timing: Continuous Quality: Positive for Indigestion Location: - (Subxiphoid) Current Severity: Mild Maximum Severity: Moderate Worsened By: Nothing Relieved By: Nothing Associated Symptoms: Positive for Nausea and Dyspnea; Negative for Vomiting, Diaphoresis, Cough, Fever, Lightheadedness, Acid Reflux or Palpitations Narrative Narrative: Patient is a 87-year-old male with history of coronary disease status post bypass surgery 20 years ago, TIA, hyperlipidemia, hypertension, COPD, right bundle branch block who presents because of dyspnea with his subxiphoid discomfort. He thought it was heartburn that she had for the past several weeks. Today he was concerned because he felt sick to his stomach with dyspnea. When he had his cardiac event 20+ years ago he only had dyspnea with exertion. He had multivessel bypass surgery. His nail cutter is Dr. Troy. He states he is compliant with his medication. He is not exert himself in the lastweek unable to determine if he has had symptoms prior to today. He denies history of peptic ulcer disease, hiatal hernia or reflux. He denies black or maroon-colored stool. He denies intolerance to greasy or fried foods. He denies history of VTE. He states his legs are chronically swollen. He denies orthopnea. 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 Benign essential HTN Bilateral carotid artery stenosis Carotid bruit COPD (chronic obstructive pulmonary disease) Depression Fall GERD (gastroesophageal reflux disease) Hip fracture History of stress test Hyperlipidemia Insomnia Left carotid artery stenosis RBBB Right femoral fracture TIA (transient ischemic attack) Home Medications multivitamin 1 tab PO DAILY Supplement 05/20/20 [History Last Taken 03/22/21] nitroglycerin 0.4 mg sublingual tablet 0.4 mg sublingual Q5-15M PRN chest pain #25 tabs 11/26/20 [Rx Last Taken Unknown] vitamin B complex 1 cap PO DAILY SUPPLEMENT 03/22/21 [History Last Taken 03/22/21] escitalopram oxalate 10 mg tablet 10 mg PO DAILY 30 days #30 tabs 04/21/21 [Rx Last Taken Unknown] aspirin 81 mg tablet,delayed release (Adult Low Dose Aspirin) 81 mg PO DAILY 05/24/21 [History Last Taken Unknown] atorvastatin 40 mg tablet 40 mg PO QHS cholesterol lowering #90 tabs 07/19/22 [Rx Last Taken Unknown] metoprolol succinate 25 mg tablet,extended release 24 hr 25 mg PO DAILY #90 tabs07/19/22 [Rx Last Taken Unknown] Allergy/AdvReac Type Severity Reaction Status Date / Time Penicillins Allergy Hives Verified 01/03/23 08:14 oxycodone AdvReac Unknown Unknown Verified 01/03/23 08:14 Family History Father Myocardial infarction, Onset Age: 68 Brother CAD (coronary artery disease) Myocardial infarction Hx of CABG Brother CHF (congestive heart failure) Surgical History Aortocoronary bypass status (~07/07/00) H/O cardiac catheterization History of left-sided carotid endarterectomy (~07/22/20) History of right-sided carotid endarterectomy (~09/30/20) Hx of appendectomy Social History household members: spouse Smoking Status: Former smoker alcohol intake: never substance use type: does not use ROS ROS ED Constitutional Constitutional ED: Denies chills, fever(s), subjective or sweats Eyes Eyes: Reports none ENT ENT ED: Denies ear pain, rhinorrhea or sore throat Cardiovascular Cardiovascular: Reports as per HPI; Denies orthopnea or paroxysmal nocturnal dyspnea Respiratory/Chest Respiratory/Chest: Reports dyspnea; Denies cough, dyspnea on exertion, orthopneaor paroxysmal nocturnal dyspnea Gastrointestinal Gastrointestinal: Reports abdominal pain and nausea; Denies melena Musculoskeletal Musculoskeletal: Denies arthralgias, back pain, myalgias or neck pain Integumentary Denies rash Neurologic Neurologic: Denies headache(s) or paresthesias Endocrine Endocrinology: Denies cold intolerance or heat intolerance Hematologic/Lymphatic Hematologic/Lymphatic: Denies easy bleeding or easy bruising EXAM Physical Exam Const Vital Signs: 01/03/23 08:14 01/03/23 08:26 01/03/23 11:00 Temperature 97.1 F L Temperature Source Temporal Pulse Rate 69 Respiratory Rate 18 Respiratory Effort Normal Non-Labored Blood Pressure 199/95 H Blood Pressure Mean 129 Pulse Ox 99 96 Oxygen Delivery Method Room Air Room Air Positive well nourished General Appearance ED: NAD HEENT Reports TM's clear and moist mucous membranes normocephalic and atraumatic Tympanic Membrane ED: Yes TM's clear Eyes PERRL and EOMs intact bilaterally General Eye ED: Negative for pale conjunctiva or scleral icterus Neck no lymphadenopathy, supple and no JVD Neck Narrative: There are no carotid bruits noted. Chest Wall inspection of chest normal and palpation of chest normal Resp normal respiratory effort and clear to auscultation bilaterally Cardio regular rate, regular rhythm, S1 normal heart sound, S2 normal heart sound and no murmurs GI normal to inspection, nondistended, normoactive bowel sounds, soft to palpation,non-tender, non-distended and no masses; Negative for hepatosplenomegaly Back/Spine no CVA tenderness and no thoracic nor lumbar tenderness Extremity normal to inspection General Extremety ED: Yes edema; Negative for pulses abnormal or tenderness General Extremity: edema; Negative for pulses abnormal Neuro oriented x3, CN's II-XII intact bilaterally and no sensory deficits noted Sensorium / Orientation: awake and alert Psych mental status grossly normal Skin no rashes or lesions noted and no wounds MDM MDM MDM Narrative Medical decision making narrative: Differential diagnosis would include GERD, coronary disease i.e. anginal equivalent, peptic ulcer disease and biliary disease. Chest pain work-up was initiated. Patient took aspirin last evening according to . This is the reason he did not receive aspirin in the emergency department. Patient and were informed of EKG results, chest x-ray results and blood work he was informed that a 2-hour troponin was ordered. Lab Data Attestation: I reviewed the patient's lab results. Lab results narrative: CBC is unremarkable. Basic metabolic panel is unremarkable. First troponin 7. Labs: Laboratory Results - last 24 hr 01/03/23 01/03/23 08:24 10:59 WBC 9.4 RBC 4.65 Hgb 15.2 Hct 44.1 MCV 94.8 H MCH 32.7 H MCHC 34.5 RDW Std Deviation 46.6 H RDW Coeff of Josh 13.5 Plt Count 194 MPV 8.8 Immature Gran % (Auto) 0.500 Neut % (Auto) 74.9 H Lymph % (Auto) 13.2 L Parmer % (Auto) 10.3 H Eos % (Auto) 0.7 Baso % (Auto) 0.4 Absolute Neuts (auto) 7.0 Absolute Lymphs (auto) 1.24 Nucleated RBC % 0 Sodium 134 L Potassium 4.6 Chloride 103 Carbon Dioxide 28.0 Anion Gap 3 L BUN 15 Creatinine 1.26 Est GFR (MDRD) Af Amer 70 Est GFR (MDRD) Non-Af 58 L BUN/Creatinine Ratio 11.9 Glucose 123 H Calcium 9.2 Troponin I High Sens 7 8 Radiography Chest X-Ray - ED: 1 View and Read by ED Physician (Single view portable chest x- ray reveals changes at the left base which are unchanged from prior. Cardiac size is unremarkable. Perihilar region is normal. Osseous trucks unremarkable. Right lung field is normal. There is no evidence of effusion. This is implanted reviewed interpreted by me.) Diagnostic Testing: Clinical Impression(s) from Imaging Studies Chest X-Ray 01/03/23 08:34 IMPRESSION: Stable pleural parenchymal changes at the left lung base. The remainder of the examination is unchanged. Electronically Signed: Jeronimo Zelaya MD at 9:15 EDT , EKG Initial EKG: Attestation: I personally reviewed and interpreted this EKG as follows: Interpretation: Sinus Rhythm (Rate is 64 with a right bundle branch block. 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 DC interval is 172 ms. Cures duration 160 ms. QT duration is 414 ms. [employer] is normal) Treatment and Re-Evaluation :: Patient was informed that both of his troponins were negative and the delta was 1. With an unchanged EKG atypical symptoms normal 2-hour troponin we will have him follow-up with the [facility]. He will need to be reassigned to a new physician since Dr. Garth Troy has left the group Discharge Plan Triage Chief Complaint: Chest Pain ED Provider: Toy Crandall Dx/Rx/DC Orders Clinical Impression: Epigastric abdominal pain of unknown etiology, Bilateral carotid artery stenosis, Benign essential HTN, Gastroesophageal reflux disease, Acute dyspnea, Status post coronary artery bypass grafting Instructions: ED Chest Pain, Noncardiac, ED Chest Pain, Uncertain Cause Prescriptions: No Action multivitamin Tablet 1 tab PO DAILY nitroglycerin 0.4 mg tablet, sublingual 0.4 mg SUBLINGUAL Q5-15M PRN (Reason: chest pain) Qty: 25 3RF Rx Instructions: until response; do not exceed 3 doses per event aspirin [Adult Low Dose Aspirin] 81 mg tablet,delayed release (DR/EC) 81 mg PO DAILY vitamin B complex Capsule 1 cap PO DAILY escitalopram oxalate 10 mg Tablet 10 mg PO DAILY 30 Days Qty: 30 0RF atorvastatin 40 mg tablet 40 mg PO QHS Qty: 90 3RF metoprolol succinate 25 mg tablet extended release 24 hr 25 mg PO DAILY Qty: 90 3RF Primary Care Provider: Mariela King Referrals: Mariela King MD [Primary Care Provider] - 3-5 Days Disposition Disposition: Home, Self Care What to do if you have Problems For any increased pain, shortness of breath, bleeding, nausea or vomiting, chestpain, or any unexpected problems, contact your Primary Care Provider. Call [facility] ([phone]) or report to the closest Emergency Room. Call 911 if necessary. 01/03/23 1150 <Electronically signed by Toy Crandall MD> Cosigner Signature (if applicable): CC: Dr. Mariela King MD ~ Signed [facility] Work Phone: 1(219) 350-295507-02-2021 NoteHNO ID: [id number] Author: Alexa Schaefer APRN.CASE FINISHER Service: ? Author Type: Nurse Practitioner Type: Progress Notes Filed: 10/30/2020 1:11 PM Note Text: Rancho Muller 85 year old male S/P Left carotid endarterectomy; Right carotid endarterectomy PROCEDURE: L CEA AND R CEA by Dr. Mares DATE: 07/22/20; 09/30/20 SUBJECTIVE: Rancho Muller comes to the office today, accompanied by his , for post-op evaluation following his right carotid surgery. Pt reports that he is doing well, though admits that this side is a little more painful/sore than the left side was. There is also some more notable jaw line numbness and even a slight mis-alignment of his jaw, as evidence by his top AND bottom dentures not lining up like the used to, making it a little difficult for him to chew. Swallow is fine and voice is unchanged. EXAM: Neurological Exam: Normal; Awake, alert, oriented, pleasant, and appropriate; Strength and sensation grossly intact; Smile symmetric, tongue midline; No overt or obvious jaw misalignment noted Right Neck Incision: Clean, dry, well approximated, and well healed; No edema, erythema, ecchymosis, or drainage IMPRESSION: Stable post op; OK to gradually resume normal daily activities as tolerated!; Numbness in right jaw and neck have been improving slowly since surgery, and we discussed that this can take quite a long time to resolve; Will proceed with post-op carotid US in a couple of months. PLAN: Will call with results and recommendations follow-up post-op US. Encouraged to call with any questions, problems, concerns, or changes. The patient is currently taking a statin: Yes The patient is currently taking aspirin: Yes Alexa Schaefer APRN.[facility]06-02-2021 NoteHNO ID: [id number] Author: Melani Lombardo APRN.FLOOR TECH Service: ? Author Type: Nurse Lane Attendant Type: Anesthesia Procedure Notes Filed: 09/30/2020 10:43 AM Note Text: ANESTHESIOLOGY PROCEDURE NOTE A-Line General Information Procedure Start Time/Medication Administration: 09/30/2020 9:30 AM Procedure End Time: 09/30/2020 9:36 AM Patient location during procedure: OR Timeout Performed Pre-procedure: timeout performed Indication: continuous blood pressure monitoring and blood sampling needed Staffing Anesthesiologist: Rusty Gomez MD FLOOR TECH: Melani Lombardo APRN.FLOOR TECH Performed by: KRISTOPHER Preparation Sterility Preparation: hand hygiene performed prior to procedure, surgical cap used, mask used, sterile drape used during line insertion, skin prep agent completely dried prior to procedure Sterility Technique Not Completely Performed Due to Extreme Emergency: No Site Prep: Chloraprep Procedure Details Catheter Size: 20 G Catheter Length: 1.75 in Micropuncture Kit Used: No Guidewire Used: Yes Guidewire Removed Intact: YesLaterality: left Site: radial artery Ultrasound Guided: NoLine Secured: tape and Tegaderm Events Events: patient tolerated procedure well with no complications SIGNATURE: Melani Lombardo APRN.CRNA PATIENT NAME: Rancho Muller DATE: September 30, 2020 TIME: 10:42 AM CS[facility]: [id number] NoteHNO ID: [id number] Author: Melani Lombardo APRN.CRNA Service: ? Author Type: Nurse Lane Attendant Type: Anesthesia Procedure Notes Filed: 09/30/2020 10:04 AM Note Text: ANESTHESIOLOGY PROCEDURE NOTE Airway General Information Procedure Start Time/Medication Administration: 09/30/2020 9:29 AM Patient location during procedure: OR Patient identity confirmed: arm band, care team facilitator and patient Staffing Anesthesiologist: Rusty Gomez MD FLOOR TECH: Melani Lombardo APRN.FLOOR TECH Performed by: KRISTOPHER Indications and Patient Condition Preoxygenated: yes Patient position: sniffing Manual In-Line Stabilization: No Difficult mask ventilation: two hand mask. Indications for airway management: anesthesia and airway protection anesthesia circuit Method: asleep Cricoid Pressure: No Final Airway Details Final airway type: endotracheal airway Final Endotracheal Airway: ETT Cuffed: yes Successful intubation technique: direct laryngoscopy Endotracheal tube insertion site: oral Blade: Jacque Blade size: #4 ETT size (mm): 8.0 Measured from: lips Measurement (cm): 23 Placement verified by: chest auscultation and capnometry Cormack-Lehane Classification: grade IIb - view of arytenoids or posterior of glottis only Number of attempts at approach: 1 Failed airway: no Unrecognized esophageal intubation: no Airway not difficult SIGNATURE: Melani Lombardo APRN.CRNA PATIENT NAME: Rancho Muller DATE: September 30, 2020 TIME: 10:03 AM CSN: [id number]-01-2021 NoteHNO ID: [id number] Author: Johnson Fitzgerald APRN.CNP Service: Anesthesiology Author Type: Nurse Practitioner Type: Progress Notes Filed: 09/29/2020 1:59 PM Note Text: Spoke to Automn at 's office regarding the cardiac optimization per surgeons request per PST visit. She states that she will attempt to retrieve and scan into Epic or fax over.[facility] 08-21-2020 NoteHNO ID: [id number] Author: Alexa (Temitope Segal) REHAN Schaefer Service: ? Author Type: Nurse Practitioner Type: Progress Notes Filed: 08/21/2020 2:13 PM Note Text: Rancho Muller 84 year old male S/P Left carotid endarterectomy PROCEDURE: L CEA by Dr. Mares DATE: 07/22/20 SUBJECTIVE: Rancho Muller comes to the office today, accompanied by his (she stated pt is aphasic and she needed to be present during office visit - pt is no longer aphasic), for post-op evaluation following his left carotid surgery. Pt reports that he is doing well, though has started having left shoulder/arm pain since his surgery. Notes that when he has his arm in a certain position - say, resting on the arm of a chair - it causes severe, sharp pain down his upper arm. Once he repositions his arm, the pain is relieved. Pt denies incisional pain, noting only some jaw line paresthesia and sensitivity. Swallow is fine and voice is unchanged. EXAM: Neurological Exam: Normal; Awake, alert, oriented, pleasant, and appropriate; Strength and sensation grossly intact; Smile symmetric, tongue midline Left Neck Incision: Clean, dry, well approximated, and well healed; No edema, erythema, ecchymosis, or drainage IMPRESSION: Stable post op; OK to gradually resume normal daily activities as tolerated!; Pt with known severe R ICA stenosis (was more severe than L ICA stenosis, however, symptoms in the fall were associated with the L ICA, so surgical intervention was recommended in left side first), which will require surgery as well; Discussed left arm pain not a symptoms or R ICA stenosis; Encouraged to monitor for s/s of TIA or stroke and, as discussed with Dr. Mares, will proceed with scheduling R CEA. PLAN: Pt will follow-up with Dr. Mares for R CEA as scheduled today. Encouraged to call with any questions, problems, concerns, or changes. The patient is currently taking a statin: Yes The patient is currently taking aspirin: Yes Alexa Schaefer APRN.[facility]03-25-2021 NoteHNO ID: [id number] Author: Desmond Peters DO Service: General Surgery Author Type: Resident Type: Progress Notes Filed: 07/23/2020 6:37 AM Note Text: Attestation signed by Liliya Mares at 07/23/2020 3:37 PM Attending Note I personally saw and examined the patient. I reviewed the resident's note. I agree with the resident's assessment and plan unless otherwise noted. Signature: Liliya Mares MD Date: 07/23/2020 Time: 3:37 PM Vascular Surgery Progress Note SERVICE DATE: 07/23/2020 Vascular AND Thoracic Surgery Service Pager: For questions or concerns Mon-Fri 6a-5p please page [phone]. After 5pm and on Weekends and Holidays, please page [phone] if in ICU or [phone] if on RNF. Subjective SUBJECTIVE: Hypertensive overnight, nitro weaned off around midnight. States he is doing well this AM. Denies N/V/CP/SOB. Tolerating Diet: DIET LIQUID Objective OBJECTIVE: Vitals: Temp (24hrs), Av.9 ?C (96.7 ?F), Min:35.6 ?C (96.1 ?F), Max:36.2 ?C (97.2 ?F) BP 153/70 Pulse 77 Temp 36 ?C (96.8 ?F) (Temporal) Resp 25 SpO2 94% O2 Therapy: Nasal Cannula IANDO: Date 07/22/20699 - 07/23/20 0659 07/23/20699 - 07/24/20 0659 Shift 8469-5003 0927-0379 6379-7595 24 Hour Total 7039-0351 6358-1819 7772-3248 24 Hour Total INTAKE PO 240 240 PO 240 240 IV 1550 1550 Volume (mL) (NaCl 0.9% iv infusion) 750 750 Volume (mL) (lactated ringers infusion) 750 750 Volume (mL) (clindamycin iv piggyback 900 mg in D5W 50 mL (CLEOCIN)) 50 50 Shift Total 3020 722 6078 OUTPUT Urine 500 451 519 6931 Void (ml) 150 350 500 OR Urine Output 500 500 Blood 50 50 Estimated Blood loss 50 50 Shift Total 550 508 888 0377 Weight (kg) MEDICATIONS Current Facility-Administered Medications Medication Dose Route Frequency - atorvastatin 40 mg tab(s) (LIPITOR) 40 mg ORAL AT BEDTIME - metoprolol tartrate (short acting) 12.5 mg tab(s) (LOPRESSOR) 12.5 mg ORAL q 12 H - aspirin 81 mg chewable tab(s) 81 mg ORAL DAILY - escitalopram oxalate 5 mg tab(s) (LEXAPRO) 5 mg ORAL DAILY - enoxaparin 40 mg injection (LOVENOX) 40 mg SUBCUTANEOUS DAILY - nitroglycerin 100 mg in D5W 250 mL 5-200 mcg/min INTRAVENOUS CONTINUOUS - PHENYLephrine 80 mg in D5W 250 mL (KATHRYN-SYNEPHRINE) 25-300 mcg/min INTRAVENOUS CONTINUOUS - ondansetron (PF) 4 mg injection (ZOFRAN) 4 mg INTRAVENOUS q 6 H PRN - acetaminophen 650 mg tab(s) (TYLENOL) 650 mg ORAL QID - traMADol 50 mg tab(s) (ULTRAM) 50 mg ORAL q 6 H PRN - pantoprazole DR 40 mg tab(s) (PROTONIX) 40 mg ORAL DAILY (6 AM) Labs: Recent Labs 07/22/20 1330 NA 137 K 4.3 CHLOR 106* CO2 24 BUN 15 CREAT 0.95 GLUC 128* ANION 7* CA 8.7 WBC 8.99 HB 13.7 HCT 39.5 PLT 149* Exam: GENERAL: No distress, Alert NEURO: AANDOx3, CN II-XII grossly intact HEENT: normocephalic, atraumatic, EOMI, L neck incision closed with skin glue and some maturing skin ecchymosis. No hematomas NECK: trachea midline no JVD LUNGS: Unlabored breathing O2 Therapy: Nasal Cannula equal chest rise bilaterally CARDIAC: Regular rate and rhythm as above ABDOMEN: Soft, non-tender, non-distended EXTREMITIES: LUNA, No deformities, No edema SKIN: Skin color, texture, turgor normal, No rashes or lesions PSYCH: normal mood and affect ASSESSMENT AND PLAN: Active Hospital Problems Diagnosis Date Noted - Carotid stenosis 07/22/2020 84 year old male with left carotid stenosis s/p 07/22 L CEA, doing well. - DIET LIQUID ADAT - IVF discontinued - pain and nausea control - discontinue nitro/kathryn, and arterial line - ASA/statin - home metoprolol - home lexapro - GI PPx: PPI - DVT PPx: LVX - anticipate discharge home today - Assessment and plan discussed with attending: Dr. Mares SIGNATURE: Desmond Peters DO PATIENT NAME: Rancho Muller DATE: July 23, 2020 TIME: 6:07 AM Vascular AND Thoracic Surgery Service Pager: For questions or concerns Mon-Mon 6a-5p please page [phone]. After 5pm and on Weekends and Holidays, please page [phone] if in ICU or [phone] if on RNF.[facility]03-24-2021 NoteHNO ID: [id number] Author: Celia Valero (Aprn Crna) Service: Anesthesiology Author Type: Nurse Lane Attendant Type: Anesthesia Procedure Notes Filed: 07/22/2020 10:30 AM Note Text: ANESTHESIOLOGY PROCEDURE NOTE PIV General Information Patient Location: OR Staffing Anesthesiologist: Fermin Foy Performed by: anesthesiologist Preparation Sterility Preparation: hand hygiene performed prior to procedure, surgical cap used, mask used, skin prep agent completely dried prior to procedure Site Prep: Chloraprep Procedure Details Indication: need for IV access Needle Size/Type: 18 gauge angiocath Orientation: Right Location: Hand Imaging Guidance Used: No SIGNATURE: Celia Valero APRN.CRNA PATIENT NAME: Rancho Muller DATE: July 22, 2020 TIME: 10:29 AM CSN: [id number] [facility]03-24-2021 NoteHNO ID: [id number] Author: Celia Valero (Aprn Crna) Service: Anesthesiology Author Type: Nurse Lane Attendant Type: Anesthesia Procedure Notes Filed: 07/22/2020 10:29 AM Note Text: ANESTHESIOLOGY PROCEDURE NOTE A-Line General Information Patient location during procedure: OR Indication: continuous blood pressure monitoring and blood sampling needed Staffing Anesthesiologist: Fermin Foy Performed by: anesthesiologist Preparation Sterility Preparation: hand hygiene performed prior to procedure, surgical cap used, mask used, sterile drape used during line insertion, skin prep agent completely dried prior to procedure Site Prep: Chloraprep Procedure Details Catheter Size: 20 G Catheter Length: 12 cm Guidewire Used: Yes Guidewire Removed Intact: YesLaterality: left Site: radial artery Ultrasound Guided: NoLine Secured: Tegaderm and tape Events Events: patient tolerated procedure well with no complications SIGNATURE: Celia Valero APRN.CRNA PATIENT NAME: Rancho Muller DATE: July 22, 2020 TIME: 10:28 AM CSN: [id number] Desert Island Hospital03-24-2021 NoteHNO ID: [id number] Author: Celia Valero (Aprn Crna) Service: Anesthesiology Author Type: Nurse Lane Attendant Type: Anesthesia Procedure Notes Filed: 07/22/2020 10:27 AM Note Text: ANESTHESIOLOGY PROCEDURE NOTE Airway General Information Procedure Start Time/Medication Administration: 07/22/2020 8:54 AM Patient location during procedure: OR Patient identity confirmed: arm band and patient Staffing Anesthesiologist: Fermin Foy FLOOR TECH: Celia Valero (Aprn Crna) Performed by: FLOOR TECH Indications and Patient Condition Preoxygenated: yes Patient position: sniffing Manual In-Line Stabilization: No Difficult Mask: No Indications for airway management: anesthesia anesthesia circuit Method: asleep Cricoid Pressure: No Airway Accessory: oral airway Final Airway Details Final airway type: endotracheal airway Final Endotracheal Airway: ETT Cuffed: yes Successful intubation technique: direct laryngoscopy Endotracheal tube insertion site: oral Blade: Jacque Blade size: #4 ETT size (mm): 8.0 Measured from: lips Measurement (cm): 24 Placement verified by: chest auscultation and capnometry Cormack-Lehane Classification: grade IIa - partial view of glottis Number of attempts at approach: 1 Airway not difficult SIGNATURE: Celia Valero APRN.CRNA PATIENT NAME: Rancho Muller DATE: July 22, 2020 TIME: 10:26 AM CSN: [id number] Desert Island Hospital12-03-2020 NoteHNO ID: [id number] Author: Liliya Mares Service: ? Author Type: Physician Type: Progress Notes Filed: 04/02/2020 5:50 PM Note Text: VIRTUAL VISIT PROGRESS NOTE This is a virtual visit using HIPAA compliant video platform. It required patient-provider interaction for the medical decision making as documented below. Rancho Muller is a 84 year old male seen for carotid stenosis. He was previously evaluated in the hospital when he was admitted for possible TIA with R hand weakness. History of previous TIA. He has been doing well since he has been at home and has not had a return of his symptoms. A CTscan obtained at an OSH showed a >70% stenosis in the R ICA and 50-70% stenosis in the left. Virtual visit today with his to discuss treatment options. HISTORY REVIEWED (electronic chart updated): PAST MEDICAL HISTORY Diagnosis Date - Cardiomegaly - Chronic depressive personality disorder - COPD (chronic obstructive pulmonary disease) ([facility]) - Coronary atherosclerosis of unspecified type of vessel, washoe or graft - Depression - Displacement of intervertebral disc, site unspecified, without myelopathy - Esophageal reflux - Lumbosacral spondylosis without myelopathy - Other and unspecified hyperlipidemia - PAD (peripheral artery disease) (HCC) - Right bundle branch block - Spinal stenosis, lumbar region, without neurogenic claudication PAST SURGICAL HISTORY Procedure Laterality Date - APPENDECTOMY - CABG, ARTERIAL, FOUR+ 06/2000 - FNA WITH IMAGING 09/14/2009 U/S FNA right thyroid lesion - MAL LESION TRUNK,ARM,LEG 1.1-2.0 CM 02/05/08 Exc, left upper back skin lesion - PAST SURGICAL HISTORY OF Right 2017 repair femur spiral fracture - RIGHT HEART CATHETERIZATION 12-09-2009 Cardiac cath, [facility] FAMILY HISTORY Problem Relation Age of Onset - Ischemic Heart Disease Father - other (Depression [Other]) Mother - Coronary Artery Disease Brother - other (CHF [Other]) Brother - other (Drowning accident [Other]) Brother Social History Tobacco Use - Smoking status: Former Smoker Packs/day: 1.00 Years: 50.00 Pack years: 50.00 Types: Cigarettes Quit date: 03/31/1999 Years since quittin.0 - Smokeless tobacco: Never Used - Tobacco comment: quit 1998 Substance Use Topics - Alcohol use: Yes Comment: seldom - Drug use: Not on file Current Outpatient Medications Medication Sig - aspirin 81 mg chewable tablet Take 1 tablet by mouth once daily. - lisinopril (ZESTRIL, PRINIVIL) 10 mg tablet Take 10 mg by mouth once daily. - atorvastatin (LIPITOR) 40 mg tablet Take 40 mg by mouth once daily. - metoprolol succinate ER (TOPROL XL) 25 mg 24 hr tablet Take 25 mg by mouth once daily. - escitalopram oxalate (LEXAPRO) 5 mg tablet Take 5 mg by mouth once daily. - nitroglycerin sublingual (NITROQUICK) 0.[address] 1 tablet under the tongue if needed every 5 TO 15 MINUTES for chest pain for 3 doses - lansoprazole(PREVACID 30 MG CAP) Take one(1) capsule daily., as needed No current facility-administered medications for this visit. ALLERGIES Allergen Reactions - Aspirin GI upset - Penicillins REVIEW OF SYSTEMS: As noted in HPI PHYSICAL EXAMINATION: VIDEO EXAM: (if completed, performed via video enabled technology) No exam performed ASSESSMENT: (I65.23) Bilateral carotid artery stenosis (primary encounter diagnosis) PLAN: Mr. Muller has bilateral carotid artery stenosis, with possible symptoms in his R hand. We discussed today the risks and benefits of surgical repair and medical management, including a higher stroke risk with medical management then with surgery. He is on maximal medical management at this time. He and his are agreeable to surgical treatment - will proceed with L CEA (R hand weakness), followed by R CEA at a later date. Will schedule surgery when ok to schedule overnight surgical cases. There are no Patient Instructions on file for this visit. I spent more than 10 minutes [id number] with the patient and over half the time was devoted to counseling and/or coordination of care. Liliya Mares, [facility]11-03-2020 NoteHNO ID: [id number] Author: Cyn Tadeo Service: General Surgery Author Type: Resident Type: Plan of Care Filed: 03/03/2020 8:24 AM Note Text: Reviewed findings of MRI. Will plan outpatient CEA. Pt can be discharged per primary. OP f/u with Dr Mares. Please call the office to schedule OR. Call with questions. Cyn Tadeo MD General Surgery, PGY-4 March 03, 2020 8:24 AM Vascular AND Thoracic Surgery Service Pager: For questions or concerns Mon-Fri 6a-5p please page [phone]. After 5pm and on Weekends and Holidays, please page [phone] if in ICU or [phone] if on RNF.[facility]11-02-2020 NoteHNO ID: [id number] Author: Joce Zuniga MD Service: Hospital Medicine Author Type: Physician Type: Progress Notes Filed: 03/02/2020 4:46 PM Note Text: DEPARTMENT OF HOSPITAL MEDICINE PROGRESS NOTE SERVICE DATE: 03/02/2020 SERVICE TIME: 4:42 PM Hospital Medicine/Primary Attending: Dr.Lodi Zuniga NIGHT AND WEEKEND COVERAGE: After 7pm please page [phone] SUBJECTIVE: no acute events Denies CP/SOB. Denies nausea/vomiting/diarrhea. OBJECTIVE: PHYSICAL EXAM: BP 134/71 Pulse 71 Temp (Src) 97.2 (Oral) Resp 18 Ht 6' 0 (1.83m) Wt 205 lb 4 oz (93.1kg) SpO2 97% BMI 27.83 kg/(m2). O2 Therapy: Room Air General: NAD, appears comfortable Resp: Clear to auscultation B/L, no wheeze/rhonchi, unlabored CV: RRR, Normal S1S2, No murmur/rub/gallop GI: soft, NT/ND, + BS Ext: no cyanosis/clubbing/edema Neuro: AANDO x 3, speech fluent MEDICATIONS: Current Facility-Administered Medications Medication Dose Route Frequency - atorvastatin 40 mg tab(s) (LIPITOR) 40 mg ORAL AT BEDTIME - lisinopril 10 mg tab(s) (ZESTRIL, PRINIVIL) 10 mg ORAL DAILY - metoprolol succinate ER 25 mg tab(s) (TOPROL XL) 25 mg ORAL DAILY - pantoprazole DR 40 mg tab(s) (PROTONIX) 40 mg ORAL DAILY PRN - escitalopram oxalate 5 mg tab(s) (LEXAPRO) 5 mg ORAL DAILY - sodium chloride 0.9 % (flush) 3-5 mL (BD POSIFLUSH) 3-5 mL INTRAVENOUS q 12 H - ondansetron 4 mg tab(s) (ZOFRAN) 4 mg ORAL q 6 H PRN Or - ondansetron (PF) 4 mg injection (ZOFRAN) 4 mg INTRAVENOUS q 6 H PRN - docusate sodium 100 mg cap(s) (COLACE) 100 mg ORAL BID PRN - acetaminophen 650 mg tab(s) (TYLENOL) 650 mg ORAL q 6 H PRN - heparin 5,000 Units injection 5,000 Units SUBCUTANEOUS q 12 H - albuterol 2.5 mg /3 mL (0.083 %) 2.5 mg (PROVENTIL) 2.5 mg INHALATION q 4 H while awake - perflutren lipid microspheres 1.1 mg/mL 1.3 mL injection (DEFINITY) 1.3 mL INTRAVENOUS DIRECTED PRN - aspirin 81 mg chewable tab(s) 81 mg ORAL DAILY DATA: Diagnostic tests reviewed for today's visit: CBC, Coags, BMP, Mg, Phos Recent Labs 02/29/20 0357 WBC 11.23* HB 14.9 HCT 43.5 PLT 243 NA 137 K 4.4 CHLOR 102 CO2 26 BUN 16 CREAT 1.11 GLUC 99 CA 9.4 CSF AND Dilantin Liver Function, Amylase, AND Lipase Cardiac Enzymes ABGs Assessment/Plan TIA-like symptoms Aphasia resolved Neurology on board Brain MRI pending EEG no seizure activity TTE EF 60%, mild LVH Continue aspirin and statin ? ? Left carotid artery stenosis,?Numbness and tingling in right hand? 50-70% blockage on CTA vascular consult, patient might need L CEA continue statin and ASA? ?History of CAD S/p CABG in 2000 Stable Continue aspirin , statin, lisinopril and metoprolol ? ?COPD Stable, not in exacerbation On Albuterol PRN ? HLD Continue statin ? Depression Continue Lexapro ? VTE Prophylaxis: Heparin 5000 units Sub Q BID ? Disposition: To be determined ? Plan of care discussed with: Patient, , RN SIGNATURE: Joce Zuniga PATIENT NAME: Rancho Muller DATE: March 02, 2020 TIME: 4:42 PM PAGER/CONTACT #: carina el [facility] 03-02-2020 NoteHNO ID: [id number] Author: Gudelia Solis Service: General Surgery Author Type: Resident Type: Progress Notes Filed: 03/02/2020 3:33 PM Note Text: Attestation signed by Liliya Mares at 03/02/2020 8:02 PM Attending Note I personally saw and examined the patient. I reviewed the resident's note. I agree with the resident's assessment and plan unless otherwise noted. MRI pending, will follow Signature: Liliya Mares MD Date: 03/02/2020 Time: 8:02 PM Vascular Surgery Progress Note SERVICE DATE: 03/02/2020 Vascular and Thoracic Service Pager: For questions or concerns Mon-Fri 6a-5p please page [phone]. After 5pm and on Weekends and Holidays, please page [phone] if in ICU or [phone] if on RNF. Subjective SUBJECTIVE: Patient resting comfortably this morning. No difficulty speaking. Reports a mild headache earlier in the morning that has resolved. No changes in vision, numbness, tingling, weakness, or other neurological deficits. Diet: DIET HEART HEALTHY Objective OBJECTIVE: Vitals: Temp (24hrs), Av.7 ?C (98 ?F), Min:36.3 ?C (97.3 ?F), Max:37.4 ?C (99.3 ?F) BP 144/81 Pulse 69 Temp 36.6 ?C (97.9 ?F) (Oral) Resp 18 Ht 182.9 cm (6') Wt 93.1 kg (205 lb 4 oz) SpO2 96% BMI 27.84 kg/m? O2 Therapy: Room Air IANDO: MEDICATIONS Current Facility-Administered Medications Medication Dose Route Frequency - atorvastatin 40 mg tab(s) (LIPITOR) 40 mg ORAL AT BEDTIME - lisinopril 10 mg tab(s) (ZESTRIL, PRINIVIL) 10 mg ORAL DAILY - metoprolol succinate ER 25 mg tab(s) (TOPROL XL) 25 mg ORAL DAILY - pantoprazole DR 40 mg tab(s) (PROTONIX) 40 mg ORAL DAILY PRN - escitalopram oxalate 5 mg tab(s) (LEXAPRO) 5 mg ORAL DAILY - sodium chloride 0.9 % (flush) 3-5 mL (BD POSIFLUSH) 3-5 mL INTRAVENOUS q 12 H - ondansetron 4 mg tab(s) (ZOFRAN) 4 mg ORAL q 6 H PRN Or - ondansetron (PF) 4 mg injection (ZOFRAN) 4 mg INTRAVENOUS q 6 H PRN - docusate sodium 100 mg cap(s) (COLACE) 100 mg ORAL BID PRN - acetaminophen 650 mg tab(s) (TYLENOL) 650 mg ORAL q 6 H PRN - heparin 5,000 Units injection 5,000 Units SUBCUTANEOUS q 12 H - albuterol 2.5 mg /3 mL (0.083 %) 2.5 mg (PROVENTIL) 2.5 mg INHALATION q 4 H while awake - perflutren lipid microspheres 1.1 mg/mL 1.3 mL injection (DEFINITY) 1.3 mL INTRAVENOUS DIRECTED PRN - aspirin 81 mg chewable tab(s) 81 mg ORAL DAILY Labs: Recent Labs 02/29/20 0357 NA 137 K 4.4 CHLOR 102 CO2 26 BUN 16 CREAT 1.11 GLUC 99 ANION 9 CA 9.4 WBC 11.23* HB 14.9 HCT 43.5 PLT 243 Exam: GENERAL: No distress, Alert NEURO: AANDOx3, CN II-XII grossly intact HEENT: normocephalic, atraumatic LUNGS: Unlabored breathing O2 Therapy: Room Air CARDIAC: Regular rate and rhythm as above EXTREMITIES: LUNA, No deformities, No edema SKIN: Skin color, texture, turgor normal, No rashes or lesions ASSESSMENT AND PLAN: Active Hospital Problems Diagnosis Date Noted - Stroke-like symptoms 02/28/2020 - Left carotid artery stenosis 02/28/2020 - HTN (hypertension) 02/28/2020 - COPD (chronic obstructive pulmonary disease) (HCC) 02/28/2020 - Numbness and tingling in right hand 02/28/2020 - Symptomatic carotid artery stenosis 02/28/2020 - Depression 06/12/2005 - HLD (hyperlipidemia) 06/12/2005 Assessment: 84 year old male?with symptomatic left carotid artery stenosis, likely 50-70% Plan: - MRI head/neck done yesterday, final read pending - continue ASA and statin - will likely need CEA - Would likely benefit from pre-operative optimization due to multiple medical comorbidities - COPD, poor exercise tolerance, echo on 02/2831 grade I left ventricular diastolic dysfunction. Will discuss with attending, Dr. Mares Follow up needs: TBD SIGNATURE: Gudelia Solis DO PATIENT NAME: Rancho Muller DATE: March 02, 2020 TIME: 3:26 PM Pager: [phone] Vascular and Thoracic Service Pager: For questions or concerns Mon-Mon 6a-5p please page [phone]. After 5pm and on Weekends and Holidays, please page [phone] if in ICU or [phone] if on RNF.[facility]11-01-2020 NoteHNO ID: [id number] Author: Joce Zuniga MD Service: Hospital Medicine Author Type: Physician Type: Progress Notes Filed: 03/01/2020 3:16 PM Note Text: DEPARTMENT OF HOSPITAL MEDICINE PROGRESS NOTE SERVICE DATE: 03/01/2020 SERVICE TIME: 3:12 PM Hospital Medicine/Primary Attending: Dr.Lodi Zuniga NIGHT AND WEEKEND COVERAGE: After 7pm please page [phone] SUBJECTIVE: Patient seen and examined,resting in the chair No acute events Denies CP/SOB. Denies nausea/vomiting/diarrhea. OBJECTIVE: PHYSICAL EXAM: BP 168/75 Pulse 84 Temp (Src) 97.7 (Axillary) Resp 18 Ht 6' 0 (1.83m) Wt 205 lb 4 oz (93.1kg) SpO2 95% BMI 27.83 kg/(m2). O2 Therapy: Room Air General: NAD, appears comfortable Resp: Clear to auscultation B/L, no wheeze/rhonchi, unlabored CV: RRR, Normal S1S2, No murmur/rub/gallop GI: soft, NT/ND, + BS Ext: no cyanosis/clubbing/edema Neuro: AANDO x 3, speech fluent MEDICATIONS: Current Facility-Administered Medications Medication Dose Route Frequency - atorvastatin 40 mg tab(s) (LIPITOR) 40 mg ORAL AT BEDTIME - lisinopril 10 mg tab(s) (ZESTRIL, PRINIVIL) 10 mg ORAL DAILY - metoprolol succinate ER 25 mg tab(s) (TOPROL XL) 25 mg ORAL DAILY - pantoprazole DR 40 mg tab(s) (PROTONIX) 40 mg ORAL DAILY PRN - escitalopram oxalate 5 mg tab(s) (LEXAPRO) 5 mg ORAL DAILY - sodium chloride 0.9 % (flush) 3-5 mL (BD POSIFLUSH) 3-5 mL INTRAVENOUS q 12 H - ondansetron 4 mg tab(s) (ZOFRAN) 4 mg ORAL q 6 H PRN Or - ondansetron (PF) 4 mg injection (ZOFRAN) 4 mg INTRAVENOUS q 6 H PRN - docusate sodium 100 mg cap(s) (COLACE) 100 mg ORAL BID PRN - acetaminophen 650 mg tab(s) (TYLENOL) 650 mg ORAL q 6 H PRN - heparin 5,000 Units injection 5,000 Units SUBCUTANEOUS q 12 H - albuterol 2.5 mg /3 mL (0.083 %) 2.5 mg (PROVENTIL) 2.5 mg INHALATION q 4 H while awake - perflutren lipid microspheres 1.1 mg/mL 1.3 mL injection (DEFINITY) 1.3 mL INTRAVENOUS DIRECTED PRN - aspirin 81 mg chewable tab(s) 81 mg ORAL DAILY DATA: Diagnostic tests reviewed for today's visit: CBC, Coags, BMP, Mg, Phos Recent Labs 02/29/20 0357 WBC 11.23* HB 14.9 HCT 43.5 PLT 243 NA 137 K 4.4 CHLOR 102 CO2 26 BUN 16 CREAT 1.11 GLUC 99 CA 9.4 CSF AND Dilantin Liver Function, Amylase, AND Lipase Cardiac Enzymes ABGs Assessment/Plan Stroke-like symptoms Aphasia resolved Neurology on board Brain MRI pending,EEG no seizure,TTE no shunt Continue aspirin and statin ? ? Left carotid artery stenosis,?Numbness and tingling in right hand? 50-70% blockage on CTA vascular consult, patient might need L CEA continue statin and ASA? ? History of CAD S/p CABG in 2000 Stable Continue aspirin , statin, lisinopril and metoprolol ? ? COPD Stable, not in exacerbation On Albuterol PRN ? HLD Continue statin ? Depression Continue Lexapro ? VTE Prophylaxis: Heparin 5000 units Sub Q BID ? Disposition: To be determined ? Plan of care discussed with: Patient, , RN SIGNATURE: Joce Zuniga PATIENT NAME: Rancho Muller DATE: March 01, 2020 TIME: 3:12 PM PAGER/CONTACT #: carina el [facility] 03-01-2020 NoteHNO ID: [id number] Author: Antonette Whipple Service: Vascular Surgery Author Type: Resident Type: Progress Notes Filed: 03/01/2020 6:47 AM Note Text: Attestation signed by Liliya Mares at 03/01/2020 12:18 PM Attending Note I personally saw and examined the patient. I reviewed the resident's note. I agree with the resident's assessment and plan unless otherwise noted. Pending MRI results - may need CEA. Will follow. Signature: Liliya Mares MD Date: 03/01/2020 Time: 12:18 PM Vascular Surgery Progress Note SERVICE DATE: 03/01/2020 Vascular and Thoracic Service Pager: For questions or concerns Mon-Fri 6a-5p please page [phone]. After 5pm and on Weekends and Holidays, please page [phone] if in ICU or [phone] if on RNF. Subjective SUBJECTIVE: No acute changes. Denies weakness, numbness, vision changes. Denies N/V/CP/SOB Diet: DIET HEART HEALTHY Objective OBJECTIVE: Vitals: Temp (24hrs), Av.6 ?C (97.9 ?F), Min:36.2 ?C (97.2 ?F), Max:36.8 ?C (98.2 ?F) BP 154/65 Pulse 65 Temp 36.6 ?C (97.9 ?F) (Axillary) Resp 18 Ht 182.9 cm (6') Wt 93.1 kg (205 lb 4 oz) SpO2 96% BMI 27.84 kg/m? O2 Therapy: Room Air IANDO: Date 02/29/20699 - 03/01/20 0659 03/01/20 07 - 03/02/20 0659 Shift 8536-5495 2254-2935 6269-5670 24 Hour Total 2463-4880 2121-7443 1350-1864 24 Hour Total INTAKE Shift Total OUTPUT Urine 250 250 Void (ml) 250 250 Urine Not Saved. 1 x 1 x Shift Total 250 250 Weight (kg) 93.1 93.1 93.1 93.1 93.1 93.1 93.1 93.1 MEDICATIONS Current Facility-Administered Medications Medication Dose Route Frequency - atorvastatin 40 mg tab(s) (LIPITOR) 40 mg ORAL AT BEDTIME - lisinopril 10 mg tab(s) (ZESTRIL, PRINIVIL) 10 mg ORAL DAILY - metoprolol succinate ER 25 mg tab(s) (TOPROL XL) 25 mg ORAL DAILY - pantoprazole DR 40 mg tab(s) (PROTONIX) 40 mg ORAL DAILY PRN - escitalopram oxalate 5 mg tab(s) (LEXAPRO) 5 mg ORAL DAILY - sodium chloride 0.9 % (flush) 3-5 mL (BD POSIFLUSH) 3-5 mL INTRAVENOUS q 12 H - ondansetron 4 mg tab(s) (ZOFRAN) 4 mg ORAL q 6 H PRN Or - ondansetron (PF) 4 mg injection (ZOFRAN) 4 mg INTRAVENOUS q 6 H PRN - docusate sodium 100 mg cap(s) (COLACE) 100 mg ORAL BID PRN - acetaminophen 650 mg tab(s) (TYLENOL) 650 mg ORAL q 6 H PRN - heparin 5,000 Units injection 5,000 Units SUBCUTANEOUS q 12 H - albuterol 2.5 mg /3 mL (0.083 %) 2.5 mg (PROVENTIL) 2.5 mg INHALATION q 4 H while awake - perflutren lipid microspheres 1.1 mg/mL 1.3 mL injection (DEFINITY) 1.3 mL INTRAVENOUS DIRECTED PRN - aspirin 81 mg chewable tab(s) 81 mg ORAL DAILY Labs: Recent Labs 02/29/20 0357 NA 137 K 4.4 CHLOR 102 CO2 26 BUN 16 CREAT 1.11 GLUC 99 ANION 9 CA 9.4 WBC 11.23* HB 14.9 HCT 43.5 PLT 243 Exam: GENERAL: No distress, Alert NEURO: AANDOx3, CN II-XII grossly intact HEENT: normocephalic, atraumatic, no facial asymmetry LUNGS: Unlabored breathing O2 Therapy: Room Air CARDIAC: Regular rate ABDOMEN: Soft, non-tender, non-distended EXTREMITIES: LUNA, No deformities, No edema, motor and sensory intact PULSES: +2 radial, DP SKIN: Skin color, texture, turgor normal ASSESSMENT AND PLAN: Active Hospital Problems Diagnosis Date Noted - Stroke-like symptoms 02/28/2020 - Left carotid artery stenosis 02/28/2020 - HTN (hypertension) 02/28/2020 - COPD (chronic obstructive pulmonary disease) (HCC) 02/28/2020 - Numbness and tingling in right hand 02/28/2020 - Symptomatic carotid artery stenosis 02/28/2020 - Depression 06/12/2005 - HLD (hyperlipidemia) 06/12/2005 Assessment: 84 year old male with symptomatic left carotid artery stenosis, likely 50-70% ? Carotid artery stenosis - Continue ASA/statin - Would likely benefit from CEA - Neurology consult: rpt MRI B, still pending. EEG: no seizures. - Echo: Grade I L ventricular diastolic dysfunction - Would likely benefit from pre-operative optimization of medical problems. May benefit from cardiology/pulmonology evaluation given history of COPD and poor exercise tolerance ? Follow up needs: TBD ? - Discussed with attending, Dr. Mares ? SIGNATURE: Antonette Whipple MD PATIENT NAME: Rancho Muller DATE: 03/01/2020 TIME: 6:16 AM Pager: [phone] Vascular and Thoracic Service Pager: For questions or concerns Mon-Fri 6a-5p please page [phone]. After 5pm and on Weekends and Holidays, please page [phone] if in ICU or [phone] if on RNF.[facility]10-31-2020 NoteHNO ID: [id number] Author: Joce Zuniga MD Service: Hospital Medicine Author Type: Physician Type: Progress Notes Filed: 02/29/2020 3:42 PM Note Text: DEPARTMENT OF HOSPITAL MEDICINE PROGRESS NOTE SERVICE DATE: 02/29/2020 SERVICE TIME: 3:35 PM Hospital Medicine/Primary Attending: Dr.Lodi Zuniga NIGHT AND WEEKEND COVERAGE: After 7pm please page [phone] SUBJECTIVE: patient seen and examined Resting in bed, alert and oriented, speech fluent Denies CP/SOB. Denies nausea/vomiting/diarrhea. OBJECTIVE: PHYSICAL EXAM: BP 150/74 Pulse 74 Temp (Src) 97.2 (Axillary) Resp 18 Ht 6' 0 (1.83m) Wt 205 lb 4 oz (93.1kg) SpO2 95% BMI 27.83 kg/(m2). O2 Therapy: Room Air General: NAD, appears comfortable Resp: Clear to auscultation B/L, no wheeze/rhonchi, unlabored CV: RRR, Normal S1S2, No murmur/rub/gallop GI: soft, NT/ND, + BS Ext: no cyanosis/clubbing/edema, right arm numbness Neuro: AANDO x 3, speech fluent MEDICATIONS: Current Facility-Administered Medications Medication Dose Route Frequency - LORazepam 1 mg injection (ATIVAN) 1 mg INTRAVENOUS ONCE - atorvastatin 40 mg tab(s) (LIPITOR) 40 mg ORAL AT BEDTIME - lisinopril 10 mg tab(s) (ZESTRIL, PRINIVIL) 10 mg ORAL DAILY - metoprolol succinate ER 25 mg tab(s) (TOPROL XL) 25 mg ORAL DAILY - pantoprazole DR 40 mg tab(s) (PROTONIX) 40 mg ORAL DAILY PRN - escitalopram oxalate 5 mg tab(s) (LEXAPRO) 5 mg ORAL DAILY - sodium chloride 0.9 % (flush) 3-5 mL (BD POSIFLUSH) 3-5 mL INTRAVENOUS q 12 H - ondansetron 4 mg tab(s) (ZOFRAN) 4 mg ORAL q 6 H PRN Or - ondansetron (PF) 4 mg injection (ZOFRAN) 4 mg INTRAVENOUS q 6 H PRN - docusate sodium 100 mg cap(s) (COLACE) 100 mg ORAL BID PRN - acetaminophen 650 mg tab(s) (TYLENOL) 650 mg ORAL q 6 H PRN - heparin 5,000 Units injection 5,000 Units SUBCUTANEOUS q 12 H - albuterol 2.5 mg /3 mL (0.083 %) 2.5 mg (PROVENTIL) 2.5 mg INHALATION q 4 H while awake - perflutren lipid microspheres 1.1 mg/mL 1.3 mL injection (DEFINITY) 1.3 mL INTRAVENOUS DIRECTED PRN - aspirin 81 mg chewable tab(s) 81 mg ORAL DAILY DATA: Diagnostic tests reviewed for today's visit: CBC, Coags, BMP, Mg, Phos Recent Labs 02/29/20 0357 WBC 11.23* HB 14.9 HCT 43.5 PLT 243 NA 137 K 4.4 CHLOR 102 CO2 26 BUN 16 CREAT 1.11 GLUC 99 CA 9.4 CSF AND Dilantin Liver Function, Amylase, AND Lipase Cardiac Enzymes ABGs Assessment/Plan Stroke-like symptoms Aphasia resolved Neurology on board Brain MRI, EEG , TTE Continue aspirin and statin Left carotid artery stenosis, Numbness and tingling in right hand 50-70% blockage on CTA vascular consult, patient might need L CEA continue statin and ASA History of CAD S/p CABG in 2000 Stable Continue aspirin , statin, lisinopril and metoprolol COPD Stable, not in exacerbation On Albuterol PRN HLD Continue statin Depression Continue Lexapro VTE Prophylaxis: Heparin 5000 units Sub Q BID Disposition: To be determined Plan of care discussed with: Patient, , RN SIGNATURE: Joce Zuniga PATIENT NAME: Rancho Muller DATE: February 29, 2020 TIME: 3:35 PM PAGER/CONTACT #: car[facility] 02-29-2020 NoteHNO ID: [id number] Author: Eber Rios DO Service: Vascular Surgery Author Type: Resident Type: Progress Notes Filed: 02/29/2020 8:20 AM Note Text: Attestation signed by Liliya Mares at 02/29/2020 2:22 PM Attending Note I personally saw and examined the patient. I reviewed the resident's note. I agree with the resident's assessment and plan unless otherwise noted. Patient seen and examined. Discussed with patient and his CTA findings. Patient is being seen by Neuro - to undergo MRI and EEG monitor. Will follow for need for possible L CEA. Signature: Liliya Mares MD Date: 02/29/2020 Time: 2:21 PM Vascular Surgery Progress Note SERVICE DATE: 02/29/2020 Vascular and Thoracic Service Pager: For questions or concerns Mon-Fri 6a-5p please page [phone]. After 5pm and on Weekends and Holidays, please page [phone] if in ICU or [phone] if on RNF. Subjective SUBJECTIVE: Doing fair this morning. Does not like being here as he cannot sleep in the hospital. Complaining of recurrent right hand numbness this morning. States it is on both sides of his hand and not localized to the volar or dorsal aspect. Is not sure what time it began but is currently improving. Denies any other symptoms. No weakness or slurred speech. Denies N/V/CP/SOB Diet: DIET HEART HEALTHY Objective OBJECTIVE: Vitals: Temp (24hrs), Av.7 ?C (98 ?F), Min:36.6 ?C (97.9 ?F), Max:36.7 ?C (98.1 ?F) BP 138/85 Pulse 82 Temp 36.7 ?C (98.1 ?F) (Axillary) Resp 16 Ht 182.9 cm (6') Wt 93.1 kg (205 lb 4 oz) SpO2 97% BMI 27.84 kg/m? O2 Therapy: Room Air IANDO: MEDICATIONS Current Facility-Administered Medications Medication Dose Route Frequency - atorvastatin 40 mg tab(s) (LIPITOR) 40 mg ORAL AT BEDTIME - lisinopril 10 mg tab(s) (ZESTRIL, PRINIVIL) 10 mg ORAL DAILY - metoprolol succinate ER 25 mg tab(s) (TOPROL XL) 25 mg ORAL DAILY - pantoprazole DR 40 mg tab(s) (PROTONIX) 40 mg ORAL DAILY PRN - escitalopram oxalate 5 mg tab(s) (LEXAPRO) 5 mg ORAL DAILY - sodium chloride 0.9 % (flush) 3-5 mL (BD POSIFLUSH) 3-5 mL INTRAVENOUS q 12 H - ondansetron 4 mg tab(s) (ZOFRAN) 4 mg ORAL q 6 H PRN Or - ondansetron (PF) 4 mg injection (ZOFRAN) 4 mg INTRAVENOUS q 6 H PRN - docusate sodium 100 mg cap(s) (COLACE) 100 mg ORAL BID PRN - acetaminophen 650 mg tab(s) (TYLENOL) 650 mg ORAL q 6 H PRN - heparin 5,000 Units injection 5,000 Units SUBCUTANEOUS q 12 H - albuterol 2.5 mg /3 mL (0.083 %) 2.5 mg (PROVENTIL) 2.5 mg INHALATION q 4 H while awake - perflutren lipid microspheres 1.1 mg/mL 1.3 mL injection (DEFINITY) 1.3 mL INTRAVENOUS DIRECTED PRN - aspirin 81 mg chewable tab(s) 81 mg ORAL DAILY Labs: Recent Labs 02/29/20 0357 NA 137 K 4.4 CHLOR 102 CO2 26 BUN 16 CREAT 1.11 GLUC 99 ANION 9 CA 9.4 WBC 11.23* HB 14.9 HCT 43.5 PLT 243 Exam: GENERAL: No distress, Alert NEURO: AANDOx3, CN II-XII grossly intact HEENT: normocephalic, atraumatic, no facial asymmetry LUNGS: Unlabored breathing O2 Therapy: Room Air CARDIAC: Regular rate and rhythm as above ABDOMEN: Soft, non-tender, non-distended EXTREMITIES: LUNA, No deformities, No edema PULSES: +2 radial, DP SKIN: Skin color, texture, turgor normal, No rashes or lesions ASSESSMENT AND PLAN: Active Hospital Problems Diagnosis Date Noted - Stroke-like symptoms 02/28/2020 - Left carotid artery stenosis 02/28/2020 - HTN (hypertension) 02/28/2020 - COPD (chronic obstructive pulmonary disease) (HCC) 02/28/2020 - Numbness and tingling in right hand 02/28/2020 - Symptomatic carotid artery stenosis 02/28/2020 - Depression 06/12/2005 - HLD (hyperlipidemia) 06/12/2005 Assessment: 84 year old male with likely symptomatic carotid artery stenosis ? Carotid artery stenosis - Patient with two different CTAs, one on 02/25 and the other 02/27. Reads from the same hospital but the one on 02/25 notes 50-70% stenosis of LICA with <50% of the BEBO while the 02/27 CTA notes 70% BEBO with 50-69% LICA. Attending to review imaging but may need repeat imaging to more accurately delineate true degree of stenosis -Continue ASA/statin - Depending on CTA interpretation may need surgical intervention, timing would TBD but possible carotid endarterectomy next week - Neurology consult pending, appreciate recommendations - Recurrent symptoms this morning but appear to be resolving at time of exam. No other neurologic changes - Would likely benefit from pre-operative optimization of medical problems. Echo is pending. May benefit from cardiology/pulmonology evaluation given history of COPD and poor exercise tolerance ? Follow up needs: TBD ? - Discussed with attending, Dr. Mares ? SIGNATURE: Eber Rios DO PATIENT NAME: Rancho Duran (more content not included)...[facility]10-31-2020 NoteHNO ID: [id number] Author: Interface Note Service: ? Author Type: ? Type: Progress Notes Filed: 02/29/2020 3:25 AM Note Text: Epic Scheduled Downtime: 02/29/2020 12:20:00 AM to 02/29/2020 3:09:00 [facility] Diagnosis Onset Date Resolution Status Anemia acute Hyponatremia acute Leukocytosis acute Status post-operative repair of closed fracture of left hip acute Closed intertrochanteric fracture of left hip resolved Coronary artery disease acut e Debility acute Depression acute Gastroesophageal reflux disease acute Hyperlipidemia acute Insomnia acute Closed left hip fracture res olved Hyponatremia resolved Status post-operative repair of closed fracture of left hip acute Aortic root dilatation acute Benign essential HTN acute Bilateral carotid artery stenosis acute Atherosclerotic heart diseas e of [place] coronary artery without angina pectoris chronic Hyperlipidemia [facility] Work Phone: Evaluation note* Diagnosis Onset Date Resolution Status Status post-operative repair of closed fracture of left hip acute Aortic root dilatation acute Benign essential HTN acute Bilateral carotid artery stenosis acute Atherosclerotic heart diseas e of [place] coronary artery without angina pectoris chronic Hyperlipidemia chronic Anemia acute Aortic root dilatation acute Benign essential HTN acute Bilateral carotid artery stenosis acute Chest pain acute Atherosclerotic heart diseas e of [place] coronary artery without angina pectoris chronic Hyperlipidemia [facility] Work Phone: Evaluation note* Diagnosis Onset Date Resolution Status Aortic root dilatation acute Benign essential HTN acute Bilateral carotid artery stenosis acute Atherosclerotic heart diseas e of [place] coronary artery without angina pectoris chronic Hyperlipidemia chronic Anemia acute Aortic root dilatation acute Benign essential HTN acute Bilateral carotid artery stenosis acute Chest pain acute Atherosclerotic heart diseas e of [place] coronary artery without angina pectoris chronic Hyperlipidemia [facility] Work Phone: Evaluation note* Diagnosis Onset Date Resolution Status Anemia acute Aortic root dilatation acute Benign essential HTN acute Bilateral carotid artery stenosis acute Chest pain acute 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 Work Phone: Evaluation note* Diagnosis Onset Date Resolution Status Admit Date Hyperlipidemia acute January 03, 2025 10:27am [facility] Work Phone: Reason for referral (narrative)No reason for referral information available[facility]: Summary Purpose Family History No Family History Records Found Relationship Condition Age at Onset Recorded Date/T joseline father Myocardial infarction 68 brother Coronary artery disease Unknown Myocardial infarction Unknown History of coronary artery bypass surgery Unknown brother Congestive heart failure Unknown Advance Directives No Advanced Directives Records Found Advance Directive Response Recorded Date/ Time Name of Medical Power of Overhead Irrigator Lea reyna () March 22, 2021 8:02pm Name of Medical Power of Overhead Irrigator Lea reyna, March 29, 2021 11:50am Living Will No July 19, 2021 6:39pm Power of Overhead Irrigator No July 19 6:39pm Advance Directive Response Recorded Date/ Time Living Will No July 19, 2021 6:39pm Power of Overhead Irrigator No July 19 6:39pm Advance Directive Response Recorded Date/ Time Living Will No January 03 8:28am Power of Overhead Irrigator No January 03, 2023 8:28am Chief Complaint and Reason for Visit Chief Complaint INTERTROCHANTERIC FR ACTURE LEFT HIP INTERTROCHANTERIC FRACTURE LEFT HIP INTERTROCHANTERIC FRACTURE LEFT HIP INTERTROCHANTERIC FRACTURE LEFT HIP INTERTROCHANTERIC FRACTURE LEFT HIP INTERTROCHANTERIC FRACTURE LEFT HIP INTERTROCHANTERIC FRACTURE LEFT HIP INTERTROCHANTERIC FRACTURE LEFT HIP INTERTROCHANTERIC L HIP FRACTURE LEFT HIP EORDER 6 m fu LT HIP FX/ RX HERE CHEST PAIN Reason for Visit Anemia Hyponatremia Leukocytosis Status post-operative repair of closed fracture of left hip Closed intertrochanteric fracture of left hip Coronary artery disease Debility Depression Gastroesophageal reflux disease Hyperlipidemia Insomnia Closed left hip fracture Hyponatremia Status post-operative repair of closed fracture of left hip Aortic root dilatation Benign essential HTN Bilateral carotid artery stenosis Atherosclerotic heart disease of [place] coronary artery without angina pectoris Hyperlipidemia Chief Complaint LEFT HIP EORDER 6 m fu LT HIP FX/ RX HERE CHEST PAIN 3-4 MO F/U Reason for Visit Status post-operativ e repair of closed fracture of left hip Aortic root dilatation Benign essential HTN Bilateral carotid artery stenosis Atherosclerotic heart disease of [place] coronary artery without angina pectoris Hyperlipidemia Anemia Aortic root dilatation Benign essential HTN Bilateral carotid artery stenosis Chest pain Atherosclerotic heart disease of [place] coronary artery without angina pectoris Hyperlipidemia Chief Complaint EORDER 6 m fu LT HIP FX/ RX HERE CHEST PAIN 3-4 MO F/U CP CAD CP CAD Reason for Visit Aortic root dilatati on Benign essential HTN Bilateral carotid artery stenosis Atherosclerotic heart disease of [place] coronary artery without angina pectoris Hyperlipidemia Anemia Aortic root dilatation Benign essential HTN Bilateral carotid artery stenosis Chest pain Atherosclerotic heart disease of [place] coronary artery without angina pectoris Hyperlipidemia Chief Complaint LT HIP FX/ RX HERE CHEST PAIN 3-4 MO F/U CP CAD CP CAD Reason for Visit Anemia Aortic root dilatation Benign essential HTN Bilateral carotid artery stenosis Chest pain Atherosclerotic heart disease of [place] coronary artery without angina pectoris Hyperlipidemia Chief Complaint 6 M FU INT LABS Reason for Visit Aortic root dilatati on Benign essential HTN Bilateral carotid artery stenosis Atherosclerotic heart disease of [place] coronary artery without angina pectoris Hyperlipidemia Chief Complaint 1 Y FU PREV PFM PT cp Reason for Visit Aortic root dilatati on Benign essential HTN Bilateral carotid artery stenosis Atherosclerotic heart disease of [place] coronary artery without angina pectoris Hyperlipidemia Chief Complaint 1 Y FU PREV PFM PT cp LABS AND XRAY- COPD Reason for Visit Aortic root dilatati on Benign essential HTN Bilateral carotid artery stenosis Atherosclerotic heart disease of [place] coronary artery without angina pectoris Hyperlipidemia Chief Complaint Admit Date GAIT RX HERE October 16, 2024 9:46 am Chief Complaint Admit Date GAIT RX HERE October 16, 2024 9:46 am 14 M FU January 03, 2025 10:27am Reason for Visit Admit Date Hyperlipidemia January 03, 2025 10:27am Chief Complaint Admit Date GAIT RX HERE October 16, 2024 9:46 am 14 M FU January 03, 2025 10:27am S/P BILAT ICE 2020January 20, 2025 1:51pm Reason for Visit Admit Date Hyperlipidemia January 03, 2025 10:27am PVD (peripheral vascular disease) Septem 2024 10:27am Atherosclerotic heart diseas e of [place] coronary artery without angina pectoris January 03, 2025 10:27am Hypertension January 03, 2025 10:27am Additional Source Comments (unrecognized sect ion and content) No Status Records FoundNo Status Records FoundNo Status Records FoundNo Status Records FoundNo Status Records Found INFORMATION SOURCE (unrecogn ized section and content) DATE CREATED AUTHOR 03/24/2020 [facility] DATE CREATED AUTHOR AUTHOR'S ORGANIZ ATION 10/31/2020 [facility] DATE CREATED AUTHOR AUTHOR'S ORGANIZ ATION 02/05/2021 [facility] DATE CREATED AUTHOR AUTHOR'S ORGANIZ ATION 06/05/2021 [facility] DATE CREATED AUTHOR AUTHOR'S ORGANIZ ATION 02/06/2025 [facility] Goals (unrecognized section and content) Goals may be documented in a n alternate sectionGoals may be documented in an alternate sectionGoals may be documented in an alternate sectionGoals may be documented in an alternate sectionGoals may be documented in an alternate sectionGoals may be documented in an alternate sectionGoals may be documented in an alternate sectionGoals may be documented in an alternate sectionGoals may be documented in an alternate sectionGoals may be documented in an alternate sectionGoals may be documented in an alternate section Care Teams (unrecognized sec tion and content) Team Status: Active Member Role Status Dates Dr. Mariela King MD Family Provider Active Dr. Mariela King MD Primary Care Provider Active Team Status: Inactive Member Role Status Dates Dr. Mariela King MD Primary Care Provider, Referring P arielle Active Sis Noble PA, PA Attending Provider Active Team Status: Inactive Member Role Status Dates Dr. Mariela King MD Primary Care Provider Active Dr. Toy Crandall MD Emergency Provider Active Team Status: Inactive Member Role Status Dates Dr. Mariela King MD Primary Care Provide r, Attending Provider, Referring Provider Active Team Status: Inactive Member Role Status Dates Dr. Mariela King MD Primary Care Provider Active Dr. Toy Crandall MD Attending Provider, Emergency Provi cielo Active Team Status: Active Member Role/Relationship Status Dates Dr. Mariela King MD Primary Care Provider Active Team Status: Inactive Member Role/Relationship Status Dates Dr. Mariela King MD Primary Care Provider Active Start: October 16, 2024 End: October 16, 2024 Dr. Mariela King MD Attending Provider Active St art: October 16, 2024 End: October 16, 2024 Dr. Mariela King MD Referring Provider Active St art: October 16, 2024 End: October 16, 2024 Team Status: Inactive Member Role/Relationship Status Dates Dr. Mariela King MD Primary Care Provider Active Start: January 03, 2025 End: January 03, 2025 Dr. Mariela King MD Referring Provider Active St art: January 03, 2025 End: January 03, 2025 Dr. Mark Paris MD Attending Provider Active Start: January 03, 2025 End: January 03, 2025 Team Status: Active Member Role/Relationship Status Dates Dr. Mariela King MD Primary care physician Active Team Status: Inactive Member Role/Relationship Status Dates Dr. Mariela King MD Primary care physician Active Start: October 16, 2024 End: October 16, 2024 Dr. Mariela King MD Attending physician Active S tart: October 16, 2024 End: October 16, 2024 Dr. Mariela King MD Referring Provider Active St art: October 16, 2024 End: October 16, 2024 Team Status: Inactive Member Role/Relationship Status Dates Dr. Mariela King MD Primary care physician Active Start: January 03, 2025 End: January 03, 2025 Dr. Mariela King MD Referring Provider Active St art: January 03, 2025 End: January 03, 2025 Dr. Mark Paris MD Attending physician Active Start: January 03, 2025 End: January 03, 2025 Team Status: Inactive Member Role/Relationship Status Dates Dr. Mariela King MD Primary care physician Active Start: January 20, 2025 End: January 20, 2025 Dr. Mark Paris MD Attending physician Active Start: January 20, 2025 End: January 20, 2025 Dr. Mark Paris MD Referring Provider Active Start: January 20, 2025 End: January 20, 2025 Team Status: Active Member Role/Relationship Status Dates Dr. Mariela King MD Primary care physician Active Start: January 20, 2025 Dr. Mariela Bautista MD Attending physician Active Start: January 20, 2025 FOR RECORDS PERTAINING TO PATIENTS WHO ARE OR HAVE BEEN ENROLLED IN A CHEMICAL DEPENDENCY/SUBSTANCEABUSE PROGRAM, SOME INFORMATION MAY BE OMITTED. This clinical summary was aggregated from multiple sources. Caution should be exercised in using it in the provision of clinical care. This summary normalizes information from multiple sources, and as a consequence, information in this document may materially change the coding, format and clinical context of patient data. In addition, data may be omitted in some cases. CLINICAL DECISIONS SHOULD BE BASED ON THE PRIMARY CLINICAL RECORDS. [facility] [employer] [facility]. provides no warranty or guarantee of the accuracy or completeness of information in this document.
[2025-03-30 00:34] LABS: AST(SGOT) 37 U/L (<=37); Alanine Aminotransfer ALT/SGPT 10 U/L (<=46); Albumin, Serum 3.9 g/dL (3.4-4.8); Alkaline Phosphatase 112 U/L (40-129); Anion Gap 15 (5-15); BUN 21 mg/dL (4-19); BUN/Creat Ratio 15.9 RATIO (10-20); Calcium,Total 10.2 mg/dL (7.6-11.0); Carbon Dioxide 23.7 mmol/L (21.0-32.0); Chloride 95 mmol/L (98-108); Estimated Creatinine Clearance 47.00 ml/min (50-250); Globulin 3.3 g/dL (2.2-4.2); Glucose 175 mg/dL (70-99); Lipase 29 U/L (13-75); Potassium 4.6 mmol/L (3.3-5.1)
[2025-03-30 00:37] LABS: Differential Comment SCANNED
[2025-03-30 01:08] VITALS: BP 163/64; PULSE 86; RESP 16; O2SAT 93
[2025-03-30] MEDS: Pantoprazole Sodium 80 MG in 0.9% Normal Saline (50mL Bag) 15 ML 420 MG IV BOLUS (01:12)
[2025-03-30 02:11] VITALS: BP 134/71; PULSE 81; RESP 18; TEMP 36.6; O2SAT 92
--- NOTE | 2025-03-30 02:22 | PCM.HP.STD ---
HPI - General General Date of Admission: 03/30/25 Date of Service: 03/30/25 Chief Complaint: Vomiting red-brown material HPI Narrative RANCHO MULLER, is a 89 M who presents with new onset excessive vomiting for 1 day, initially with nonconcerning appearance but then followed by a red to brown dark material suspicious for bleeding. Patient has a medical history of CAD s/p quadruple bypass in 2000 on baby aspirin and mild dementia at bedside and the patient both provided the history, patient started to have vomiting earlier yesterday around 4 times, he was unable to eat anything all day long, he complained of severe dull nonradiating epigastric pain and later on he vomited a dark red to brown material according to the description who was concerned about the bleeding so she brought him to the hospital. She described him having forceful retching as well. Not on blood thinners except for aspirin. No NSAID use. No alcohol use. He had 10 yearly colonoscopies all were normal. No prior abdominal surgeries. No other alarming symptoms like weight loss, dysphagia or changes in bowel habits. Prior to this, patient describes a history of mild epigastric pain that happens randomly and is typically relieved by food, he had it for many years but was not severe enough to seek attention. He has not been on acid suppressants. In the ED, he was hemodynamically stable. WBC 20,000 with left shift. Hemoglobin 15.8. Lactic acid 3.2. Lipase normal EKG showed unchanged right bundle branch block with T waves discordant to the QRS complexes as expected, which suggest no ischemia CT abdomen with IV contrast showed diffuse fat stranding around the pancreatic head which may represent pancreatitis, diffuse thickening of the duodenal sweep may represent duodenitis, a calcified gallstone in the gallbladder neck with no biliary dilatation or signs of cholecystitis. No bowel thickening or signs of inflammation. Patient will be admitted for hematemesis which is probably a Dixie-Oliveros tear or more seriously a peptic ulcer bleed given the appearance of the duodenum on CT. [facility] Medical History (Updated 03/30/25 @ 02:[address] 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 RBBB Carotid bruit Depression GERD (gastroesophageal reflux disease) Atherosclerotic heart disease of [place] coronary artery without angina pectoris Insomnia Hyperlipidemia Right femoral fracture Fall Hip fracture Home Medications ?Medication ?Instructions ?Recorded ?Last Taken ?Type multivitamin 1 tab PO DAILY Supplement 05/20/20 03/22/21 History nitroglycerin 0.4 mg sublingual 0.4 mg sublingual Q5-15M PRN chest 11/26/20 Unknown Rx tablet pain #25 tabs vitamin B complex 1 cap PO DAILY SUPPLEMENT 03/22/21 03/22/21 History aspirin 81 mg tablet,delayed 81 mg PO DAILY 05/24/21 Unknown History release (Adult Low Dose Aspirin) metoprolol succinate 25 mg 25 mg PO DAILY #90 tabs 07/03/24 Unknown Rx tablet,extended release 24 hr atorvastatin 40 mg tablet 40 mg PO QHS cholesterol lowering 07/11/24 Unknown Rx #90 tabs chlorpheniramine maleate 4 mg 4 mg PO QHS 01/03/25 Unknown History tablet (Allergy (chlorpheniramine)) escitalopram oxalate 20 mg tablet 20 mg PO DAILY 03/29/25 Unknown History levocetirizine 5 mg tablet 5 mg PO DAILY allergies 03/29/25 Unknown History Allergy/AdvReac Type Severity Reaction Status Date / Time Penicillins Allergy Hives Verified 03/29/25 23:38 oxycodone AdvReac Unknown Unknown Verified 03/29/25 23:38 Family History Father Myocardial infarction, Onset Age: 68 Brother CAD (coronary artery disease) Myocardial infarction Hx of CABG Brother CHF (congestive heart failure) Surgical History H/O cardiac catheterization History of right-sided carotid endarterectomy (~09/30/20) History of left-sided carotid endarterectomy (~07/22/20) Hx of appendectomy Aortocoronary bypass status (~07/07/00) Social History household members: spouse Smoking Status: Former smoker alcohol intake: never substance use type: does not use caffeine: Yes ROS Constitutional Constitutional: Reports poor appetite; Denies change in weight or fever(s) ENT HEENT: Reports none Cardiovascular Cardiovascular: Denies chest pain or dyspnea Respiratory/Chest Respiratory/Chest: Denies cough or wheezing Gastrointestinal Gastrointestinal: Reports abdominal pain and hematemesis; Denies change in bowel habits or diarrhea Genitourinary Genitourinary: Denies change in urinary stream or dysuria Musculoskeletal Musculoskeletal: Denies arthralgias or myalgias Integumentary Integumentary: Reports none Neurologic Neurologic: Denies abnormal speech, dizziness, focal weakness, loss of vision or numbness Hematologic/Lymphatic Hematologic/Lymphatic: Reports none Vital Signs Vital Signs Vital Signs: 03/29/25 23:37 03/30/25 01:08 03/30/25 02:11 Temperature 98.2 F 97.9 F Temperature Source Oral Pulse Rate 93 86 81 Respiratory Rate 16 16 18 Blood Pressure 115/81 H 163/64 H 134/71 H Blood Pressure Mean 92 97 92 Pulse Ox 95 93 92 Oxygen Delivery Method Room Air Weight Weight: 97.5 kg Body Mass Index (BMI) 29.1 Physical Exam Const alert Constitutional Narrative: Mild forgetfulness HEENT normocephalic and head/scalp atraumatic Eyes EOMs intact bilaterally; Negative for no scleral icterus Neck supple Resp normal respiratory effort and clear to auscultation bilaterally Cardio regular rate and regular rhythm; Negative for no murmurs GI normal to inspection, nondistended, normoactive bowel sounds GI Narrative: Epigastric tenderness no CVA tenderness Extremity no joint enlargement and no pedal edema Skin no rashes or lesions noted Neuro moves all extremities Sensorium / Orientation: awake and alert Results Lab / Micro Data 03/29/25 23:44 03/29/25 23:44 Labs: Laboratory Results - last 24 hr 03/29/25 23:44: WBC 20.7 H, RBC 4.77, Hgb 15.8, Hct 45.2, MCV 94.8 H, MCH 33.1 H, MCHC 35.0, RDW Std Deviation 47.6 H, RDW Coeff of Josh 13.8, Plt Count 344, MPV 9.1, Immature Gran % (Auto) 0.500, Neut % (Auto) 78.3 H, Lymph % (Auto) 12.7 L, [place] % (Auto) 8.3, Eos % (Auto) 0.0, Baso % (Auto) 0.2, Absolute Neuts (auto) 16.2 H, Absolute Lymphs (auto) 2.63, Nucleated RBC % 0, Differential Comment SCANNED, Sodium 133, Potassium 4.6, Chloride 95 L, Carbon Dioxide 23.7, Anion Gap 15, BUN 21 H, Creatinine 1.34 H, Estim Creat Clear Calc 47.00 L, Est GFR (MDRD) Non-Af 51 L, BUN/Creatinine Ratio 15.9, Glucose 175 H, Calcium 10.2, Total Bilirubin 1.11, AST 37, ALT 10, Alkaline Phosphatase 112, Total Protein 7.1, Albumin 3.9, Globulin 3.3, Albumin/Globulin Ratio 1.2, Lipase 29 03/29/25 23:49: Lactic Acid 3.2 H*, Blood Type O POSITIVE, Antibody Screen NEGATIVE Micro: Microbiology 03/29/25 23:49 Stool Stool Occult Blood (PRINCE) - Final Imaging Radiology Impression Abdomen/Pelvis CT 03/30/25 00:12 IMPRESSION: 1. Regional fat stranding of the pancreatic head and duodenum concerning for acute pancreatitis with possible reactive duodenitis. No pancreatic necrosis or pseudocyst formation at this moment. 2. Cholelithiasis with no CT evidence of acute cholecystitis. 3. Right kidney parapelvic cyst measures 2.4 x 4.1 x 2.1 cm. 4. 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 Reading Location: [facility] Assessment & Plan Assessment/Plan (1) Coffee ground emesis: (2) Acute upper GI bleeding: (3) Lactic acidosis: (4) Duodenitis: (5) Coronary artery disease: QUALIFIERS: Coronary Disease-Associated Artery/Lesion type: [place] artery [place] vs. transplanted heart: [place] heart Associated angina: without angina Qualified Code(s): I25.10 - Atherosclerotic heart disease of [place] coronary artery without angina pectoris (6) Hypertension: QUALIFIERS: Hypertension type: primary hypertension Qualified Code(s): I10 - Essential (primary) hypertension PLAN: Plan 89-year-old main comes in with hematemesis after bouts of vomiting, epigastric pain, lactic acidosis and duodenal wall thickening on CT scan. Admission to PCU Hematemesis/upper GI bleed: Can be a Dixie-Oliveros tear from forceful retching and vomiting or more seriously a bleeding peptic ulcer N.p.o., IV pantoprazole 40 mg twice daily. Stop aspirin. GI consultation Trend H&H, transfuse for hemoglobin below 8 because of underlying CAD, or transfuse for active ongoing bleeding or shock Lactic acidosis: 3.2 on presentation likely due to hypoperfusion from volume depletion (vomiting, not eating or drinking, and bleeding). CBC shows hemoconcentration. D5 half NS at lower rate for 1 L then reassess No signs or symptoms of infection CT with IV contrast showed normal-appearing bowel. If lactate fails to trend down consider CTA abdomen CAD: Stable, no events since his bypass in 2000. On aspirin and statin at home holding aspirin for above Hypertension: At baseline. Holding metoprolol because of n.p.o. and potential bleeding Charges/Coding Visit Charges Inpatient E&M: 21366 Init Hosp L3
--- OUTSIDE RECORDS SUMMARY | 2025-03-30 02:22 | XMS RPT_ITS | CCD ---
Author Organization [facility] Care Team Providers Care Pill Packer Name Role Phone Jose Xie Unavailable Unavailable Jose Xie Unavailable Unavailable SELF, SELF Referring Unavailable Dr. Mariela King Primary Care Provider Dr. Mariela Angulo Emergency Provider Dr. Mariela Merritt Admit Provider Dr. Mariela Merritt Attending Provider 1([facility])[phone] Mariela Merritt Other Provider Dr. Marco Verdin Attending Provider Dr. Marco Verdin Other Provider Dr. Natalie Berry Referring Provider Dr. Natalie Berry Attending Provider Dr. Natalie Berry Other Provider SELWYN Goldstein Attending Provider Dr. Mariela King Referring Provider SELWYN Manriquez Attending Provider Dr. Mariela King Primary Care Provider Dr. Marco Verdin Attending Provider Dr. Mariela King Primary Care Provider Dr. Mariela King Referring Provider SELWYN Manriquez Referring Provider SELWYN Manriquez Other Provider Dr. Garth Troy Attending Provider Dr. Mariela King Primary Care Provider Dr. Mariela King Referring Provider Real SAMANO PA Sis Silva Attending Provider Dr. Mariela King Primary Care Provider [phone] Mariela King Referring Provider Real SAMANO PA Sis Silav Attending Provider Dr. Mariela King Primary Care [...] Provider Michele MACHUCA, Dr. Urbina Attending Physician [phone] Mariela King Primary Care Unavailable Mariela Bautista [...] Phone: (2 sources) penicillin drug allergy 1 [facility] Work Phone: (11 sources) oxyCODONE Drug Allergy 2 Unknown [facility] (12 sources) Penicillins; Translations: [Penicillins] Allergy to substance 2 Hives [facility] (1 source) oxyCODONE Drug Allergy 5 [facility] Repository Medications Current Medications Medication Drug [...] TABS One tablet by mouth daily ASPIRIN [id number] Shobha Silva [place] Start: 09-24-2010 take 1 tablet by esther th once daily ASPIRIN 81 MG TABS One tablet by mouth daily ASPIRIN [id number] Shobha Silva [place] Start: 09-24-2010 take 1 tablet by esther th once daily ASPIRIN EC 81 MG TBEC One tablet by mouth daily ASPIRIN [id number] Sis Patel RN cetirizine hydrochloride 5 mg [...] tablet by mouth at bedtime. ATORVASTATIN CALCIUM [id number] Garth Troy MD bisacodyl 5 mg delayed [...] (complete current supply then STOP) CLOPIDOGREL BISULFATE [id number] Garth Troy MD dexamethasone 4 mg oral [...] constipation docusate sodium 50 mg / sennosides, fci 8.6 mg oral tablet (11 sources) Start: [...] esther th once daily IMDUR 30 MG [id number] One tablet by mouth daily ISOSORBIDE MONONITRATE [id number] Garth Troy MD Start: 01-23-2012 End: 02-02-2012 take 1 tablet by mouth once daily IMDUR 30 MG [id number] One tablet by mouth daily ISOSORBIDE MONONITRATE [id number] Lilian Hodge RN lansoprazole 30 mg delayed [...] tablet by mouth daily as needed LANSOPRAZOLE [id number] Garth Troy MD Start: 09-24-2010 take 1 tablet by esther th once daily as needed PREVACID 30 MG CPDR One tablet by mouth daily as needed LANSOPRAZOLE [id number] Garth Troy MD lisinopril 10 mg oral [...] One tablet by mouth daily METOPROLOL TARTRATE [id number] Garth Troy MD Start: 09-24-2010 take 1 tablet by esther th twice daily METOPROLOL TARTRATE 25 MG TABS One tablet by mouth twice daily METOPROLOL TARTRATE [id number] Garth Troy MD mirtazapine 7.5 mg oral [...] AM and off in the PM NITROGLYCERIN [id number] Garth Troy MD Start: 02-02-2012 NITRO-DUR 0.2 MG/HR PT24 0.2 mg topically in the AM and off in the PM NITROGLYCERIN [id number] Garth Troy MD Start: 02-02-2012 End: 08-15-2012 NITRO-DUR 0.2 MG/HR PT24 0.2 mg topically in the AM and off in the PM NITROGLYCERIN [id number] Garth Troy MD Start: 09-24-2010 NITROGLYCERIN 0.4 MG SUBL 1 tablet under the tongue every 5 minutes times 3 as needed for chest pain. NITROGLYCERIN [id number] Garth Troy MD polyethylene glycol 3350 66334 mg powder for oral solution (11 sources) [...] by mouth twice daily RANEXA 500 MG [id number] One tablet by mouth twice daily RANOLAZINE [id number] Garth Troy MD Start: 08-15-2012 take 1 tablet by esther th twice daily RANEXA 500 MG [id number] One tablet by mouth twice daily RANOLAZINE [id number] Garth Troy MD Start: 08-15-2012 End: 05-06-2013 take 1 tablet by mouth twice daily RANEXA 500 MG [id number] One tablet by mouth twice daily RANOLAZINE [id number] Garth Troy MD rivaroxaban 10 mg oral [...] One tablet by mouth daily SERTRALINE HCL [id number] Shobha [place] tamsulosin hydrochloride 0.4 mg oral [...] tablet by mouth every evening TRAZODONE HCL [id number] Garth Troy MD zolpidem tartrate 5 mg [...] (3 sources) Long-term drug therapy; Translations: [Other snf (current) drug therapy] Onset: 2 Resolved: 5 [...] (current) use of other medications; Translations: [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 Procedure Carotid Duplex 42242. This is a Carotid Duplex examination using B-mode, color flow and specral Doppler. Exam performed in department. VL/Carotid Duplex Ultrasound Interpretation Summary Mild (<50%) stenosis right extracranial internal carotid. Normal left extracranial internal carotid. Patent and antegrade vertebrals bilaterally. Ordering Physician: Mark Paris Referring Physician: Mariela King [facility] S[place] and Student 01/20/25 154 Date Mariela Buatista MD CC: Dr. Mariela King MD; Dr. Mark Paris MD Date Dictated: 01/20/25 140 Date Transcribed: 01/20/251546 Noc Analyst: Signed Normal [facility] Duplex ultrasound of carotid artery reportOrdered By: Mariela Bautista on 01-20-2025 Study report [facility] [address] [place] [address] Carotid Duplex Ultrasound 01/20/251405 MR#: [id number] Acct: [id number] Name: RNACHO MULLER Rep #:[id number] : 1935 89 [...] the left vertebral artery. Procedure Carotid Duplex 35091. This is a Carotid Duplex examination using B-mode, color flow and specral Doppler. Exam performed in department. VL/Carotid Duplex Ultrasound Interpretation Summary Mild (<50%) stenosis right extracranial internal carotid. Normal left extracranial internal carotid. Patent and antegrade vertebrals bilaterally. Ordering Physician: Mark Paris Referring Physician: Mariela King Performed By: [facility] Saba and Student 01/20/25 1407 Date _ Mariela Bautista MD CC: Dr. Mariela King MD; Dr. Mark Paris MD ~ Date Dictated: 01/20/25 1406 Date Transcribed: 01/20/251546 Noc Analyst: Signed [facility] Work Phone: Cardiology Visit Reporton Cardiology Visit Report [facility] [address] [place] [address] OFFICE VISIT Date of Service: 01/03/25 MR#: [id number] Acct: [id number] Name: RANCHO MULLER Rep #: [id number] : 1935 Provider: Dr. Mark thornton MD Age/Sex: 89/M Location: [facility] Status: Signed HPI HPI History of Present [...] right coronary artery. This was done at [facility]. 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 This was done at [facility] after he had 2 TIAs. 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 Mark Paris MD) History of stress test Aortic root dilatation Bilateral carotid artery stenosis TIA (transient ischemic attack) Left carotid artery stenosis COPD (chronic obstructive pulmonary disease) Atherosclerosis of [place] arteries of extremity with intermittent claudication RBBB Carotid bruit Depression GERD (gastroesophageal reflux disease) Atherosclerotic heart disease of [place] coronary artery without angina pectoris Insomnia Hyperlipidemia [...] Chest P (more content not included)... Normal [facility] Absolute lymphocyte countOrd ered By: Mariela King on 01-27-2023 Lymphocytes Auto (Unsp spec) [#/Vol] 2.38 10*3/uL 0.83-4.51 [facility] Basophil percentageOrdered B y: Mariela King on 01-27-2023 Basophils/100 WBC (Bld) 0.5 % 0-1 [facility] Eosinophils/100 WBC (Bld) 1.2 % 0-5 [facility] Neutrophils (Bld) [#/Vol] 8.2 10*3/uL 2.0-7.7 [facility] Neutrophils/100 WBC (Bld) 68.7 % 47-70 [facility] WBC (Bld) [#/Vol] 11.9 10*3/uL 4.4-11.0 [facility] Blood erythrocytes count (nu mber/volume)Ordered By: Mariela King on 01-27-2023 RBC (Bld) [#/Vol] 4.64 10*6/uL 4.6-6.2 [facility] Blood hemoglobin measurement (mass/volume)Ordered By: Mariela King on 01-27-2023 Hemoglobin (Bld) [Mass/Vol] 14.8 g/dL 13.0-16.5 [facility] Blood lymphocytes/100 leukoc ytesOrdered By: Mariela King on 01-27-2023 Lymphocytes/100 WBC (Bld) 20.0 % 19-41 [facility] Blood monocytes/100 leukocyt esOrdered By: Mariela King on 01-27-2023 Monocytes/100 WBC (Bld) 9.1 % 0-10 [facility] Blood platelet mean volumeOr dered By: Mariela King on 01-27-2023 Platelet mean volume (Bld) [Entitic vol] 9.0 fL 6.2-12.0 [facility] Determination of erythrocyte mean corpuscular volume (MCV)Ordered By: Mareila King on 01-27-2023 MCV (RBC) [Entitic vol] 96.8 fL 80-94 [facility] Hematocrit Auto (Bld) [Volum e fraction]Ordered By: Mariela King on 01-27-2023 Hematocrit (Bld) [Volume fraction] 44.9 % 40-54 [facility] Laboratory - Hematology and Cell countsOrdered By: Mariela King on 01-27-2023 Erythrocyte distribution width (RBC) [Entitic vol] 47.8 fL 35.1-43.9 [facility] Erythrocyte distribution width (RBC) [Ratio] 13.6 % 11.6-14.6 [facility] Immature granulocytes/100 WBC (Bld) 0.500 % 0.0-0.9 [facility] Comment on above: IG% - Immature Granu locytes (promyelocytes, myelocytes and metamyelocytes) > 1% indicates that a LEFT SHIFT is Present. MCH (RBC) [Entitic mass] 31.9 pg 27.0-32.0 [facility] Nucleated RBC/100 WBC (Bld) [Ratio] 0 % 0-5 [facility] MCHC Auto (RBC) [Mass/Vol]Or dered By: Mariela King on 01-27-2023 MCHC (RBC) [Mass/Vol] 33.0 g/dL 32-36 [facility] Platelets bldOrdered By: Adrianna King on 01-27-2023 Platelets (Bld) [#/Vol] 294 10*3/uL 150-450 [facility] Serum or plasma C reactive p rotein measurement (mass/volume)Ordered By: Mariela King on 01-27-2023 CRP [Mass/Vol] 5.04 mg/L 0.0-3.0 [facility] Comment on above: C-Reactive Protein ( CRP) provides useful information for thediagnosis, therapy and monitoring of inflammatory processesand associated diseases. For the evaluation of Relative Riskfor Cardiovascular Disease, a High Sensitivity CRP (HSCRP)should be ordered. Absolute lymphocyte countOrd ered By: Toy Crandall on 01-03-2023 Lymphocytes Auto (Unsp spec) [#/Vol] 1.24 10*3/uL 0.83-4.51 [facility] Basophil percentageOrdered B y: Toy Crandall on 01-03-2023 Basophils/100 WBC (Bld) 0.4 % 0-1 [facility] Chloride [Moles/Vol] 103 mmol/L 98-107 [facility] Eosinophils/100 WBC (Bld) 0.7 % 0-5 [facility] Glucose [Mass/Vol] 123 mg/dL 74-106 [facility] Comment on above: Fasting Glucose resu lt from 100 to 125 mg/dL suggests IMPAIRED HOMEOSTASIS per A.D.A. criteria. Neutrophils (Bld) [#/Vol] 7.0 10*3/uL 2.0-7.7 [facility] Neutrophils/100 WBC (Bld) 74.9 % 47-70 [facility] Potassium [Moles/Vol] 4.6 mmol/L 3.5-5.1 [facility] Sodium [Moles/Vol] 134 mmol/L 136-145 [facility] WBC (Bld) [#/Vol] 9.4 10*3/uL 4.4-11.0 [facility] Blood erythrocytes count (nu mber/volume)Ordered By: Toy Crandall on 01-03-2023 RBC (Bld) [#/Vol] 4.65 10*6/uL 4.6-6.2 [facility] Blood hemoglobin measurement (mass/volume)Ordered By: Toy Crandall on 01-03-2023 Hemoglobin (Bld) [Mass/Vol] 15.2 g/dL 13.0-16.5 [facility] Blood lymphocytes/100 leukoc ytesOrdered By: Toypetros Crandall on 01-03-2023 Lymphocytes/100 WBC (Bld) 13.2 % 19-41 [facility] Blood monocytes/100 leukocyt esOrdered By: Toypetros Crandall on 01-03-2023 Monocytes/100 WBC (Bld) 10.3 % 0-10 [facility] Blood platelet mean volumeOr dered By: Toy Crandall on 01-03-2023 Platelet mean volume (Bld) [Entitic vol] 8.8 fL 6.2-12.0 [facility] Determination of erythrocyte mean corpuscular volume (MCV)Ordered By: [facility] on 01-03-2023 MCV (RBC) [Entitic vol] 94.8 fL 80-94 [facility] Hematocrit Auto (Bld) [Volum e fraction]Ordered By: [facility] on 01-03-2023 Hematocrit (Bld) [Volume fraction] 44.1 % 40-54 [facility] Laboratory - Chemistry and C hemistry - challengeOrdered By: [facility] on 01-03-2023 CO2 [Moles/Vol] 28.0 mmol/L 21.0-32.0 [facility] Urea nitrogen/Creatinine [Mass ratio] 11.9 mg/mg 10-20 [facility] Laboratory - Hematology and Cell countsOrdered By: [facility] on 01-03-2023 Erythrocyte distribution width (RBC) [Entitic vol] 46.6 fL 35.1-43.9 [facility] Erythrocyte distribution width (RBC) [Ratio] 13.5 % 11.6-14.6 [facility] Immature granulocytes/100 WBC (Bld) 0.500 % 0.0-0.9 [facility] Comment on above: IG% - Immature Granu locytes (promyelocytes, myelocytes and metamyelocytes) > 1% indicates that a LEFT SHIFT is Present. MCH (RBC) [Entitic mass] 32.7 pg 27.0-32.0 [facility] Nucleated RBC/100 WBC (Bld) [Ratio] 0 % 0-5 [facility] MCHC Auto (RBC) [Mass/Vol]Or dered By: [facility] on 01-03-2023 MCHC (RBC) [Mass/Vol] 34.5 g/dL 32-36 [facility] No Panel InformationOrdered By: [facility] on 01-03-2023 Troponin I High Sensitivity 8 pg/mL 3.0-78.0 [facility] Comment on above: Please Note: New [place] t Units and Gender Specific Reference Ranges. For more information see Policy Stat Procedure Philpot High Sensitivity Troponin (TNIH) and attachments. Estimated GFR (MDRD) Amer 70 mL/min >60 [facility] Comment on above: GFR Calc Estimated GFR (MDRD) Non-Af Amer 58 mL/min >60 [facility] Comment on above: Non- GFR Calc Platelets bldOrdered By: Toy Crandall on 01-03-2023 Platelets (Bld) [#/Vol] 194 10*3/uL 150-450 [facility] Serum or plasma calcium eliseo urement (mass/volume)Ordered By: Toypetors Crandall on 01-03-2023 Calcium [Mass/Vol] 9.2 mg/dL 8.5-10.1 [facility] Serum or plasma creatinine m easurement (mass/volume)Ordered By: Toypetros Crandall on 01-03-2023 Creatinine [Mass/Vol] 1.26 mg/dL 0.70-1.30 [facility] Comment on above: The validity of the calculated GFR & GFRAA in patients over 70 years has not been determined. Clinical correlation is essential. Serum or plasma urea nitroge n measurement (mass/volume)Ordered By: Toypetros Crandall on 01-03-2023 Urea nitrogen [Mass/Vol] 15 mg/dL 7-18 [facility] Thin prep Papanicolaou smear with manual screeningOrdered By: Toypetros Crandall on 01-03-2023 Thin prep Papanicolaou smear with manual screening 3 5-15 [facility] Basophil percentageon 2021 Bilirubin [Mass/Vol] 0.80 mg/dL 0.20-1.00 [facility] Work Phone: Comment on above: For patients on eltr ombopag therapy, use of Dimension Philpot TBIL is not recommended. Cholesterol [Mass/Vol] 152 mg/dL <200 [facility] Work Phone: Comment on above: <200 mg/dL Desirable 200-240 mg/dL Borderline >240 mg/dL High Risk Protein [Mass/Vol] 7.1 g/dL 6.4-8.2 [facility] Work Phone: Triglyceride [Mass/Vol] 267 mg/dL <199 [facility] Work Phone: Comment on above: The drugs N-Acetylcy steine and Metamizole may falsely depress this assay.Serum Triglycerides Reference Interval Normal <150 mg/dL Borderline high 150 - 199 mg/dL High 200 - 499 mg/dL Very High > or = 500 mg/dL Direct bilirubinon Bilirubin.direct [Mass/Vol] 0.20 mg/dL 0.00-0.30 [facility] Work Phone: Laboratory - Chemistry and C hemistry - challengeon 02-22-2022 ALP [Catalytic activity/Vol] 93 U/L 45-117 [facility] Work Phone: [phone] ALT [Catalytic activity/Vol] 22 U/L 16-61 [facility] Work Phone: [phone] Globulin (S) [Mass/Vol] 3.7 g/dL 2.2-4.2 [facility] Work Phone: [phone] Serum or plasma albumin eliseo urement (mass/volume)on 02-22-2022 Albumin [Mass/Vol] 3.4 g/dL 3.2-5.0 [facility] Work Phone: [phone] Serum or plasma cholesterol in HDL measurement (mass/volume)on 02-22-2022 Cholesterol in HDL [Mass/Vol] 48 mg/dL >40 [facility] Work Phone: Comment on above: The drugs N-Acetylcy steine and Metamizole may falsely depress this assay. Reference Range HDL <40 mg/dL Low HDL Cholesterol HDL >or= 60 mg/dL High HDL Cholesterol Serum or plasma cholesterol in VLDL measurement (mass/volume)on 02-22-2022 Cholesterol in VLDL [Mass/Vol] 53 mg/dL 5-40 [facility] Work Phone: [phone] Serum or plasma low density lipoprotein (LDL) cholesterol measurement (mass/volume)on 02-22-2022 Cholesterol in LDL [Mass/Vol] 51 mg/dL 0-130 [facility] Work Phone: [phone] Thin prep Papanicolaou smear with manual screeningon 02-22-2022 Thin prep Papanicolaou smear with manual screening 19 U/L 15-37 [facility] Work Phone: [phone] Absolute lymphocyte counton 2021 Lymphocytes Auto (Unsp spec) [#/Vol] 1.55 10*3/uL 0.83-4.51 [facility] Work Phone: Basophil percentageon 2021 Basophils/100 WBC (Bld) 0.3 % 0-1 [facility] Work Phone: Eosinophils/100 WBC (Bld) 0.3 % 0-5 [facility] Work Phone: Neutrophils (Bld) [#/Vol] 11.2 10*3/uL 2.0-7.7 [facility] Work Phone: Neutrophils/100 WBC (Bld) 77.7 % 47-70 [facility] Work Phone: WBC (Bld) [#/Vol] 14.5 10*3/uL 4.4-11.0 [facility] Work Phone: Blood erythrocytes count (nu mber/volume)on 2021 RBC (Bld) [#/Vol] 4.48 10*6/uL 4.6-6.2 [facility] Work Phone: Blood hemoglobin measurement (mass/volume)on 2021 Hemoglobin (Bld) [Mass/Vol] 13.1 g/dL 13.0-16.5 [facility] Work Phone: Blood lymphocytes/100 leukoc yteson 2021 Lymphocytes/100 WBC (Bld) 10.7 % 19-41 [facility] Work Phone: Blood manual differential co mment interpretation (narrative result)on 2021 Manual differential comment Camilo (Bld) [Interp] SCANNED [facility] Work Phone: Comment on above: AUTO DIFF OK Blood monocytes/100 leukocyt eson 2021 Monocytes/100 WBC (Bld) 10.5 % 0-10 [facility] Work Phone: Blood platelet mean volumeon 2021 Platelet mean volume (Bld) [Entitic vol] 8.8 fL 6.2-12.0 [facility] Work Phone: [phone] Determination of erythrocyte mean corpuscular volume (MCV)on 2021 MCV (RBC) [Entitic vol] 89.3 fL 80-94 [facility] Work Phone: [phone] Hematocrit Auto (Bld) [Volum e fraction]on 2021 Hematocrit (Bld) [Volume fraction] 40.0 % 40-54 [facility] Work Phone: [phone] Laboratory - Hematology and Cell countson 2021 Erythrocyte distribution width (RBC) [Entitic vol] 57.0 fL 35.1-43.9 [facility] Work Phone: [phone] Erythrocyte distribution width (RBC) [Ratio] 17.4 % 11.6-14.6 [facility] Work Phone: [phone] Immature granulocytes/100 WBC (Bld) 0.500 % 0.0-0.9 [facility] Work Phone: [phone] Comment on above: IG% - Immature Granu locytes (promyelocytes, myelocytes and metamyelocytes) > 1% indicates that a LEFT SHIFT is Present. MCH (RBC) [Entitic mass] 29.2 pg 27.0-32.0 [facility] Work Phone: [phone] Nucleated RBC/100 WBC (Bld) [Ratio] 0 % 0-5 [facility] Work Phone: [phone] MCHC Auto (RBC) [Mass/Vol]on 2021 MCHC (RBC) [Mass/Vol] 32.8 g/dL 32-36 [facility] Work Phone: [phone] Platelets bldon 2021 Platelets (Bld) [#/Vol] 265 10*3/uL 150-450 [facility] Work Phone: [phone] Absolute lymphocyte counton 08-30-2021 Lymphocytes Auto (Unsp spec) [#/Vol] 1.81 10*3/uL 0.83-4.51 [facility] Work Phone: [phone] Basophil percentageon 2021 Bilirubin [Mass/Vol] 0.50 mg/dL 0.20-1.00 [facility] Work Phone: Comment on above: For patients on eltr ombopag therapy, use of Dimension [place] TBIL is not recommended. Cholesterol [Mass/Vol] 140 mg/dL <200 [facility] Work Phone: Comment on above: <200 mg/dL Desirable 200-240 mg/dL Borderline >240 mg/dL High Risk Protein [Mass/Vol] 6.2 g/dL 6.4-8.2 [facility] Work Phone: [phone] Triglyceride [Mass/Vol] 333 mg/dL <199 [facility] Work Phone: [phone] Comment on above: The drugs N-Acetylcy steine and Metamizole may falsely depress this assay.Serum Triglycerides Reference Interval Normal <150 mg/dL Borderline high 150 - 199 mg/dL High 200 - 499 mg/dL Very High > or = 500 mg/dL Basophils/100 WBC (Bld) 0.4 % 0-1 [facility] Work Phone: Eosinophils/100 WBC (Bld) 0.8 % 0-5 [facility] Work Phone: [phone] Neutrophils (Bld) [#/Vol] 5.6 10*3/uL 2.0-7.7 [facility] Work Phone: [phone] Neutrophils/100 WBC (Bld) 66.7 % 47-70 [facility] Work Phone: [phone] WBC (Bld) [#/Vol] 8.4 10*3/uL 4.4-11.0 [facility] Work Phone: [phone] Blood erythrocytes count (nu mber/volume)on 08-30-2021 RBC (Bld) [#/Vol] 3.66 10*6/uL 4.6-6.2 [facility] Work Phone: [phone] Blood hemoglobin measurement (mass/volume)on 08-30-2021 Hemoglobin (Bld) [Mass/Vol] 10.5 g/dL 13.0-16.5 [facility] Work Phone: Blood lymphocytes/100 leukoc yteson 08-30-2021 Lymphocytes/100 WBC (Bld) 21.5 % 19-41 [facility] Work Phone: Blood monocytes/100 leukocyt eson 08-30-2021 Monocytes/100 WBC (Bld) 10.2 % 0-10 [facility] Work Phone: [phone] Blood platelet mean volumeon 08-30-2021 Platelet mean volume (Bld) [Entitic vol] 9.7 fL 6.2-12.0 [facility] Work Phone: Determination of erythrocyte mean corpuscular volume (MCV)on 08-30-2021 MCV (RBC) [Entitic vol] 89.9 fL 80-94 [facility] Work Phone: Direct bilirubinon Bilirubin.direct [Mass/Vol] 0.11 mg/dL 0.00-0.30 [facility] Work Phone: Hematocrit Auto (Bld) [Volum e fraction]on 08-30-2021 Hematocrit (Bld) [Volume fraction] 32.9 % 40-54 [facility] Work Phone: Hemoglobin in reticulocytes (mass per reticulocyte)on 08-30-2021 Hemoglobin (Reticulocytes) [Entitic mass] 26.1 pg 30-35 [facility] [facility] Work Phone: Iron measurement (mass/mass) on 08-30-2021 Iron (Unsp spec) [Mass/Mass] 32 ug/dL 65-175 [facility] Work Phone: Laboratory - Chemistry and C hemistry - challengeon 08-30-2021 ALP [Catalytic activity/Vol] 85 U/L 45-117 [facility] Work Phone: ALT [Catalytic activity/Vol] 15 U/L 16-61 [facility] Work Phone: [phone] Globulin (S) [Mass/Vol] 2.9 g/dL 2.2-4.2 [facility] Work Phone: [phone] Laboratory - Hematology and Cell countson 08-30-2021 Erythrocyte distribution width (RBC) [Entitic vol] 42.7 fL 35.1-43.9 [facility] Work Phone: [phone] Erythrocyte distribution width (RBC) [Ratio] 13.1 % 11.6-14.6 [facility] Work Phone: [phone] Immature granulocytes/100 WBC (Bld) 0.400 % 0.0-0.9 [facility] Work Phone: [phone] Comment on above: IG% - Immature Granu locytes (promyelocytes, myelocytes and metamyelocytes) > 1% indicates that a LEFT SHIFT is Present. MCH (RBC) [Entitic mass] 28.7 pg 27.0-32.0 [facility] Work Phone: [phone] Nucleated RBC/100 WBC (Bld) [Ratio] 0 % 0-5 [facility] Work Phone: [phone] MCHC Auto (RBC) [Mass/Vol]on 08-30-2021 MCHC (RBC) [Mass/Vol] 31.9 g/dL 32-36 [facility] Work Phone: No Panel Informationon 08-30 Immature Reticulocyte Fraction 28.30 % 3.00-15.90 [facility] Work Phone: [phone] Reticulocyte Count 2.10 % 0.5-1.5 [facility] Work Phone: [phone] Total Iron Binding Capacity 359 ug/dL 250-450 [facility] Work Phone: [phone] Platelets bldon 08-30-2021 Platelets (Bld) [#/Vol] 225 10*3/uL 150-450 [facility] Work Phone: Serum or plasma albumin eliseo urement (mass/volume)on 08-30-2021 Albumin [Mass/Vol] 3.3 g/dL 3.2-5.0 [facility] Work Phone: Serum or plasma cholesterol in HDL measurement (mass/volume)on 08-30-2021 Cholesterol in HDL [Mass/Vol] 37 mg/dL >40 [facility] Work Phone: Comment on above: The drugs N-Acetylcy steine and Metamizole may falsely depress this assay. Reference Range HDL <40 mg/dL Low HDL Cholesterol HDL >or= 60 mg/dL High HDL Cholesterol Serum or plasma cholesterol in VLDL measurement (mass/volume)on 08-30-2021 Cholesterol in VLDL [Mass/Vol] 67 mg/dL 5-40 [facility] Work Phone: Serum or plasma ferritin arie surement (mass/volume)on 08-30-2021 Ferritin [Mass/Vol] 15 ng/mL 26-388 [facility] Work Phone: Serum or plasma low density lipoprotein (LDL) cholesterol measurement (mass/volume)on 08-30-2021 Cholesterol in LDL [Mass/Vol] 36 mg/dL 0-130 [facility] Work Phone: Thin prep Papanicolaou smear with manual screeningon 08-30-2021 Thin prep Papanicolaou smear with manual screening 18 U/L 15-37 [facility] Work Phone: Absolute lymphocyte counton 07-19-2021 Lymphocytes Auto (Unsp spec) [#/Vol] 1.37 10*3/uL 0.83-4.51 [facility] Work Phone: Basophil percentageon 2021 Basophils/100 WBC (Bld) 0.2 % 0-1 [facility] Work Phone: [phone] Chloride [Moles/Vol] 105 mmol/L 98-107 [facility] Work Phone: Eosinophils/100 WBC (Bld) 1.2 % 0-5 [facility] Work Phone: Glucose [Mass/Vol] 114 mg/dL 74-106 [facility] Work Phone: Comment on above: Fasting Glucose resu lt from 100 to 125 mg/dL suggests IMPAIRED HOMEOSTASIS per A.D.A. criteria. Neutrophils (Bld) [#/Vol] 7.9 10*3/uL 2.0-7.7 [facility] Work Phone: Neutrophils/100 WBC (Bld) 76.3 % 47-70 [facility] Work Phone: Potassium [Moles/Vol] 4.4 mmol/L 3.5-5.1 [facility] Work Phone: Sodium [Moles/Vol] 137 mmol/L 136-145 [facility] Work Phone: WBC (Bld) [#/Vol] 10.3 10*3/uL 4.4-11.0 [facility] Work Phone: Blood erythrocytes count (nu mber/volume)on 07-19-2021 RBC (Bld) [#/Vol] 2.95 10*6/uL 4.6-6.2 [facility] Work Phone: Blood hemoglobin measurement (mass/volume)on 07-19-2021 Hemoglobin (Bld) [Mass/Vol] 9.7 g/dL 13.0-16.5 [facility] Work Phone: Blood lymphocytes/100 leukoc yteson 07-19-2021 Lymphocytes/100 WBC (Bld) 13.3 % 19-41 [facility] Work Phone: Blood monocytes/100 leukocyt eson 07-19-2021 Monocytes/100 WBC (Bld) 8.5 % 0-10 [facility] Work Phone: Blood platelet mean volumeon 07-19-2021 Platelet mean volume (Bld) [Entitic vol] 8.9 fL 6.2-12.0 [facility] Work Phone: Determination of erythrocyte mean corpuscular volume (MCV)on 07-19-2021 MCV (RBC) [Entitic vol] 94.6 fL 80-94 [facility] Work Phone: Hematocrit Auto (Bld) [Volum e fraction]on 07-19-2021 Hematocrit (Bld) [Volume fraction] 27.9 % 40-54 [facility] Work Phone: Laboratory - Chemistry and C hemistry - challengeon 07-19-2021 CO2 [Moles/Vol] 29.0 mmol/L 21.0-32.0 [facility] Work Phone: [phone] Lipase [Catalytic activity/Vol] 240 U/L 73-393 [facility] Work Phone: [phone] Urea nitrogen/Creatinine [Mass ratio] 21.4 mg/mg 10-20 [facility] Work Phone: [phone] Laboratory - Hematology and Cell countson 07-19-2021 Erythrocyte distribution width (RBC) [Entitic vol] 50.1 fL 35.1-43.9 [facility] Work Phone: [phone] Erythrocyte distribution width (RBC) [Ratio] 14.7 % 11.6-14.6 [facility] Work Phone: [phone] Immature granulocytes/100 WBC (Bld) 0.500 % 0.0-0.9 [facility] Work Phone: [phone] Comment on above: IG% - Immature Granu locytes (promyelocytes, myelocytes and metamyelocytes) > 1% indicates that a LEFT SHIFT is Present. MCH (RBC) [Entitic mass] 32.9 pg 27.0-32.0 [facility] Work Phone: [phone] Nucleated RBC/100 WBC (Bld) [Ratio] 0 % 0-5 [facility] Work Phone: [phone] MCHC Auto (RBC) [Mass/Vol]on 07-19-2021 MCHC (RBC) [Mass/Vol] 34.8 g/dL 32-36 [facility] Work Phone: [phone] Panel Informationon 07-19 Estimated Creatinine Clearance Calc 52.51 ml/min [facility] Work Phone: [phone] Estimated GFR (MDRD) Amer 76 mL/min >60 [facility] Work Phone: [phone] Comment on above: GFR Calc Estimated GFR (MDRD) Non-Af Amer 63 mL/min >60 [facility] Work Phone: [phone] Comment on above: Non- GFR Calc Troponin I High Sensitivity 8 pg/mL 3.0-78.0 [facility] Work Phone: Comment on above: Please Note: New Kamala t Units and Gender Specific Reference Ranges. For more information see Policy Stat Procedure Philpot High Sensitivity Troponin (TNIH) and attachments. Platelets bldon 07-19-2021 Platelets (Bld) [#/Vol] 207 10*3/uL 150-450 [facility] Work Phone: Serum or plasma calcium eliseo urement (mass/volume)on 07-19-2021 Calcium [Mass/Vol] 9.6 mg/dL 8.5-10.1 [facility] Work Phone: Serum or plasma creatinine m easurement (mass/volume)on 07-19-2021 Creatinine [Mass/Vol] 1.17 mg/dL 0.70-1.30 [facility] Work Phone: Comment on above: The validity of the calculated GFR & GFRAA in patients over 70 years has not been determined. Clinical correlation is essential. Serum or plasma urea nitroge n measurement (mass/volume)on 07-19-2021 Urea nitrogen [Mass/Vol] 25 mg/dL 7-18 [facility] Work Phone: Thin prep Papanicolaou smear with manual screeningon 07-19-2021 Thin prep Papanicolaou smear with manual screening 3 5-15 [facility] Work Phone: Basophil percentageon 2021 Bilirubin [Mass/Vol] 0.70 mg/dL 0.20-1.00 [facility] Work Phone: Comment on above: For patients on eltr ombopag therapy, use of Dimension Philpot TBIL is not recommended. Cholesterol [Mass/Vol] 162 mg/dL <200 [facility] Work Phone: Comment on above: <200 mg/dL Desirable 200-240 mg/dL Borderline >240 mg/dL High Risk Protein [Mass/Vol] 7.3 g/dL 6.4-8.2 [facility] Work Phone: Triglyceride [Mass/Vol] 265 mg/dL [facility] Work Phone: Comment on above: The drugs N-Acetylcy steine and Metamizole may falsely depress this assay.Serum Triglycerides Reference Interval Normal <150 mg/dL Borderline high 150 - 199 mg/dL High 200 - 499 mg/dL Very High > or = 500 mg/dL Direct bilirubinon Bilirubin.direct [Mass/Vol] 0.18 mg/dL 0.00-0.30 [facility] Work Phone: [phone] Laboratory - Chemistry and C hemistry - challengeon 05-20-2021 ALP [Catalytic activity/Vol] 120 U/L 45-117 [facility] Work Phone: [phone] ALT [Catalytic activity/Vol] 16 U/L 16-61 [facility] Work Phone: [phone] Globulin (S) [Mass/Vol] 3.9 g/dL 2.2-4.2 [facility] Work Phone: [phone] Serum or plasma albumin eliseo urement (mass/volume)on 05-20-2021 Albumin [Mass/Vol] 3.4 g/dL 3.2-5.0 [facility] Work Phone: [phone] Serum or plasma cholesterol in HDL measurement (mass/volume)on 05-20-2021 Cholesterol in HDL [Mass/Vol] 43 mg/dL [facility] Work Phone: Comment on above: The drugs N-Acetylcy steine and Metamizole may falsely depress this assay. Reference Range HDL <40 mg/dL Low HDL Cholesterol HDL >or= 60 mg/dL High HDL Cholesterol Serum or plasma cholesterol in VLDL measurement (mass/volume)on 05-20-2021 Cholesterol in VLDL [Mass/Vol] 53 mg/dL 5-40 [facility] Work Phone: [phone] Serum or plasma low density lipoprotein (LDL) cholesterol measurement (mass/volume)on 05-20-2021 Cholesterol in LDL [Mass/Vol] 66 mg/dL 0-130 [facility] Work Phone: [phone] Thin prep Papanicolaou smear with manual screeningon 05-20-2021 Thin prep Papanicolaou smear with manual screening 19 U/L 15-37 [facility] Work Phone: SARS coronavirus RNA [Presen ce] in Unspecified specimen by ELVIRA with probe detectionon 04-22-2021 SARS-CoV RNA ELVIRA+probe Ql (Unsp spec) Not detected Not Detected [facility] Work Phone: Comment on above: This [...] of in vitro diagnostic tests for detection [id number] virus and/or diagnosis of COVID-19 infectionunder section [...] percentageon 2020 Basophil percentage 10-25 SEEN /hpf [facility] Work Phone: [phone] Bilirubin Test strip Ql (U)o n 04-19-2021 Bilirubin Ql (U) Negative Negative [facility] Work Phone: [phone] Calcium oxalate crystals det ection in urine sediment by light microscopyon 04-19-2021 Calcium oxalate crystals LM Ql (Urine sed) 1+ /hpf [facility] Work Phone: Culture, urineon 04-19-2021 Bacteria identified Cx Nom (U) Positive [facility] Work Phone: [phone] Ketones Test strip Ql (U)on 04-19-2021 Ketones Ql (U) 5 mg/dl Negative [facility] Work Phone: Mucus LM Ql (Urine sed)on Mucus Ql (Urine sed) 0 SEEN /hpf [facility] Work Phone: Nitrite Test strip Ql (U)on 04-19-2021 Nitrite Ql (U) Negative Negative [facility] Work Phone: Protein Test strip Ql (U)on 04-19-2021 Protein Ql (U) 15 mg/dl Negative [facility] Work Phone: Squamous epithelial cells de tection in urine sediment by light microscopyon 04-19-2021 Epithelial cells.squamous LM Ql (Urine sed) 0 SEEN /hpf [facility] Work Phone: Urine blood detectionon 04-01 RBC Ql (U) 10 /ul Negative [facility] Work Phone: RBC Ql (U) 0-5 SEEN /hpf [facility] Work Phone: Urine clarityon 04-19-2021 Clarity (U) Clear Clear [facility] Work Phone: Urine color determinationon 04-19-2021 Color (U) Yellow Yellow [facility] Work Phone: Urine glucose detectionon Glucose Ql (U) Normal mg/dl Normal [facility] Work Phone: Urine leukocyte esterase det ection by dipstickon 04-19-2021 Leukocyte esterase Test strip Ql (U) 25 /ul Negative [facility] Work Phone: Urine pHon 04-19-2021 pH (U) 5.0 [pH] [facility] Work Phone: Urine sediment bacteria coun t by microscopy (number/high power field)on 04-19-2021 Bacteria LM.HPF (Urine sed) [#/Area] RARE /hpf None Seen [facility] Work Phone: Urine specific gravity measu rementon 04-19-2021 Specific gravity (U) [Rel density] 1.025 [facility] Work Phone: Urobilinogen Auto test strip Ql (U)on 04-19-2021 Urobilinogen Ql (U) 1 mg/dl Normal [facility] Work Phone: Absolute lymphocyte counton 04-17-2021 Lymphocytes Auto (Unsp spec) [#/Vol] 1.52 10*3/uL 0.83-4.51 [facility] Work Phone: Basophil percentageon 2020 Eosinophils/100 WBC (Bld) 0.8 % 0-5 [facility] Work Phone: Neutrophils (Bld) [#/Vol] 4.3 10*3/uL 2.0-7.7 [facility] Work Phone: WBC (Bld) [#/Vol] 6.6 10*3/uL 4.4-11.0 [facility] Work Phone: Chloride [Moles/Vol] 103 mmol/L 98-107 [facility] Work Phone: [phone] Glucose [Mass/Vol] 100 mg/dL 74-106 [facility] Work Phone: Comment on above: Fasting Glucose resu lt from 100 to 125 mg/dL suggests IMPAIRED HOMEOSTASIS per A.D.A. criteria.Please note revised GLUCOSE reference range effective 2017. Potassium [Moles/Vol] 4.3 mmol/L 3.5-5.1 [facility] Work Phone: Sodium [Moles/Vol] 138 mmol/L 136-145 [facility] Work Phone: [phone] Blood erythrocytes count (nu mber/volume)on 04-17-2021 RBC (Bld) [#/Vol] 3.98 10*6/uL 4.6-6.2 [facility] Work Phone: Blood hemoglobin measurement (mass/volume)on 04-17-2021 Hemoglobin (Bld) [Mass/Vol] 12.2 g/dL 13.0-16.5 [facility] Work Phone: Blood lymphocytes/100 leukoc yteson 04-17-2021 Lymphocytes/100 WBC (Bld) 23.0 % 19-41 [facility] Work Phone: Blood monocytes/100 leukocyt eson 04-17-2021 Monocytes/100 WBC (Bld) 10.9 % 0-10 [facility] Work Phone: Blood platelet mean volumeon 04-17-2021 Platelet mean volume (Bld) [Entitic vol] 8.7 fL 6.2-12.0 [facility] Work Phone: Determination of erythrocyte mean corpuscular volume (MCV)on 04-17-2021 MCV (RBC) [Entitic vol] 96.7 fL 80-94 [facility] Work Phone: Hematocrit Auto (Bld) [Volum e fraction]on 04-17-2021 Hematocrit (Bld) [Volume fraction] 38.5 % 40-54 [facility] Work Phone: Laboratory - Chemistry and C hemistry - challengeon 04-17-2021 CO2 [Moles/Vol] 27.0 mmol/L 21.0-32.0 [facility] Work Phone: Urea nitrogen/Creatinine [Mass ratio] 12.6 mg/mg 10-20 [facility] Work Phone: Laboratory - Hematology and Cell countson 04-17-2021 Basophils/100 WBC (Unsp spec) 0.5 % 0-1 [facility] Work Phone: Erythrocyte distribution width (RBC) [Entitic vol] 52.7 fL 35.1-43.9 [facility] Work Phone: Erythrocyte distribution width (RBC) [Ratio] 14.8 % 11.6-14.6 [facility] Work Phone: Immature granulocytes/100 WBC (Bld) 0.300 % 0.0-0.9 [facility] Work Phone: Comment on above: IG% - Immature Granu locytes (promyelocytes, myelocytes and metamyelocytes) > 1% indicates that a LEFT SHIFT is Present. MCH (RBC) [Entitic mass] 30.7 pg 27.0-32.0 [facility] Work Phone: Neutrophils/100 WBC (Bld) 64.5 % 47-70 [facility] Work Phone: Nucleated RBC/100 WBC (Bld) [Ratio] 0 % 0-5 [facility] Work Phone: MCHC Auto (RBC) [Mass/Vol]on 04-17-2021 MCHC (RBC) [Mass/Vol] 31.7 g/dL 32-36 [facility] Work Phone: No Panel Informationon 04-17 Estimated Creatinine Clearance Calc 55.35 ml/min [facility] Work Phone: Estimated GFR (MDRD) Amer 81 mL/min >60 [facility] Work Phone: Comment on above: GFR Calc Estimated GFR (MDRD) Non-Af Amer 67 mL/min >60 [facility] Work Phone: Comment on above: Non- GFR Calc Platelets bldon 04-17-2021 Platelets (Bld) [#/Vol] 295 10*3/uL 150-450 [facility] Work Phone: Serum or plasma calcium eliseo urement (mass/volume)on 04-17-2021 Calcium [Mass/Vol] 9.8 mg/dL 8.5-10.1 [facility] Work Phone: Serum or plasma creatinine m easurement (mass/volume)on 04-17-2021 Creatinine [Mass/Vol] 1.11 mg/dL 0.70-1.30 [facility] Work Phone: Comment on above: The validity of the calculated GFR & GFRAA in patients over 70 years has not been determined. Clinical correlation is essential. Serum or plasma urea nitroge n measurement (mass/volume)on 04-17-2021 Urea nitrogen [Mass/Vol] 14 mg/dL 11-15 [facility] Work Phone: Thin prep Papanicolaou smear with manual screeningon 04-17-2021 Thin prep Papanicolaou smear with manual screening 8 5-15 [facility] Work Phone: [phone] Absolute lymphocyte counton 03-26-2021 Lymphocytes Auto (Unsp spec) [#/Vol] 1.45 10*3/uL 0.83-4.51 [facility] Work Phone: Basophil percentageon 2020 Chloride [Moles/Vol] 97 mmol/L 98-107 [facility] Work Phone: Glucose [Mass/Vol] 156 mg/dL 74-106 [facility] Work Phone: Comment on above: Fasting Glucose resu lt greater than or equal to 126 mg/dL suggests DIABETES MELLITUS per A.D.A. criteria.Please note revised GLUCOSE reference range effective 2017. Potassium [Moles/Vol] 4.6 mmol/L 3.5-5.1 [facility] Work Phone: Sodium [Moles/Vol] 131 mmol/L 136-145 [facility] Work Phone: Eosinophils/100 WBC (Bld) 0.4 % 0-5 [facility] Work Phone: Neutrophils (Bld) [#/Vol] 10.1 10*3/uL 2.0-7.7 [facility] Work Phone: WBC (Bld) [#/Vol] 13.5 10*3/uL 4.4-11.0 [facility] Work Phone: Blood erythrocytes count (nu mber/volume)on 03-26-2021 RBC (Bld) [#/Vol] 2.94 10*6/uL 4.6-6.2 [facility] Work Phone: Blood hemoglobin measurement (mass/volume)on 03-26-2021 Hemoglobin (Bld) [Mass/Vol] 9.4 g/dL 13.0-16.5 [facility] Work Phone: Blood lymphocytes/100 leukoc yteson 03-26-2021 Lymphocytes/100 WBC (Bld) 10.7 % 19-41 [facility] Work Phone: Blood manual differential co mment interpretation (narrative result)on 03-26-2021 Manual differential comment Camilo (Bld) [Interp] SCANNED [facility] Work Phone: Blood monocytes/100 leukocyt eson 03-26-2021 Monocytes/100 WBC (Bld) 13.3 % 0-10 [facility] Work Phone: Blood platelet mean volumeon 03-26-2021 Platelet mean volume (Bld) [Entitic vol] 9.0 fL 6.2-12.0 [facility] Work Phone: Determination of erythrocyte mean corpuscular volume (MCV)on 03-26-2021 MCV (RBC) [Entitic vol] 91.2 fL 80-94 [facility] Work Phone: Hematocrit Auto (Bld) [Volum e fraction]on 03-26-2021 Hematocrit (Bld) [Volume fraction] 26.8 % 40-54 [facility] Work Phone: Laboratory - Chemistry and C hemistry - challengeon 03-26-2021 CO2 [Moles/Vol] 24.0 mmol/L 21.0-32.0 [facility] Work Phone: Urea nitrogen/Creatinine [Mass ratio] 19.4 mg/mg 10-20 [facility] Work Phone: Laboratory - Hematology and Cell countson 03-26-2021 Basophils/100 WBC (Unsp spec) 0.1 % 0-1 [facility] Work Phone: Erythrocyte distribution width (RBC) [Entitic vol] 45.6 fL 35.1-43.9 [facility] Work Phone: [phone] Erythrocyte distribution width (RBC) [Ratio] 13.8 % 11.6-14.6 [facility] Work Phone: Immature granulocytes/100 WBC (Bld) 0.700 % 0.0-0.9 [facility] Work Phone: Comment on above: IG% - Immature Granu locytes (promyelocytes, myelocytes and metamyelocytes) > 1% indicates that a LEFT SHIFT is Present. MCH (RBC) [Entitic mass] 32.0 pg 27.0-32.0 [facility] Work Phone: Neutrophils/100 WBC (Bld) 74.8 % 47-70 [facility] Work Phone: Nucleated RBC/100 WBC (Bld) [Ratio] 0 % 0-5 [facility] Work Phone: MCHC Auto (RBC) [Mass/Vol]on 03-26-2021 MCHC (RBC) [Mass/Vol] 35.1 g/dL 32-36 [facility] Work Phone: No Panel Informationon 03-26 Estimated Creatinine Clearance Calc 45.85 ml/min [facility] Work Phone: Estimated GFR (MDRD) Amer 65 mL/min >60 [facility] Work Phone: Comment on above: GFR Calc Estimated GFR (MDRD) Non-Af Amer 54 mL/min >60 [facility] Work Phone: Comment on above: Non- GFR Calc Platelets bldon 03-26-2021 Platelets (Bld) [#/Vol] 153 10*3/uL 150-450 [facility] Work Phone: [phone] Review by pathologiston 03-02 Pathologist review Camilo (Unsp spec) [Interp] Reviewed [facility] Work Phone: Comment on above: Previous reported re sult: Marisel zabala Edited by: REYNALDO on 03/26/21:1537Neutrophilic leukocytosis.Normocytic anemia.Clinical correlation necessary.Pranay Rojas M.D. 03/26/21 AMENDED REPORT 03/26/21 1537 PATH REV previously reported as: Marisel zabala Serum or plasma calcium eliseo urement (mass/volume)on 03-26-2021 Calcium [Mass/Vol] 8.7 mg/dL 8.5-10.1 [facility] Work Phone: Serum or plasma cortisol arie surement (mass/volume)on 03-26-2021 Cortisol [Mass/Vol] 25.80 ug/dL 3.44-22.45 [facility] Work Phone: Comment on above: Adult (AM) 5.27 - 22 .45 ug/dL Adult (PM) 3.44 - 16.76 ug/dLPlease note revised CORTISOL reference range effective 2019. Serum or plasma creatinine m easurement (mass/volume)on 03-26-2021 Creatinine [Mass/Vol] 1.34 mg/dL 0.70-1.30 [facility] Work Phone: Comment on above: The validity of the calculated GFR & GFRAA in patients over 70 years has not been determined. Clinical correlation is essential. Serum or plasma urea nitroge n measurement (mass/volume)on 03-26-2021 Urea nitrogen [Mass/Vol] 26 mg/dL 7-18 [facility] Work Phone: Thin prep Papanicolaou smear with manual screeningon 03-26-2021 Thin prep Papanicolaou smear with manual screening 10 5-15 [facility] Work Phone: Thin prep Papanicolaou smear with manual screening 279 mOsm/KG 280-301 [facility] Work Phone: Glucose Glucometer (BldC) [M ass/Vol]on 03-25-2021 Glucose [Mass/Vol] 121 mg/dL 70-110 [facility] Work Phone: Comment on above: MANAGEMENT OF PATIEN T CARE PER NURSING PROTOCOL Laboratory - Chemistry and C hemistry - challengeon 03-25-2021 Sodium (U) [Moles/Vol] 9 mmol/L Not Establ. [facility] Work Phone: No Panel Informationon 03-25 Thyroid Stimulating Hormone (TSH) 0.95 uIU/mL 0.358-3.74 [facility] Work Phone: Urine osmolality measurement on 03-25-2021 Osmolality (U) [Osmolality] 192 mOsm/KG [facility] Work Phone: Comment on above: Normal Urine Referen ce Ranges Random: 50 - 1200 mOsm/kg H20 depending on fluid intake Random: >850 mOsm/kg after 12 hour fluid restriction 24 hour: ~300 - 900 mOsm/kg H2O Blood platelet adequacy dete ction by light microscopyon 03-24-2021 Platelets LM Ql (Bld) ADEQUATE ADEQ [facility] Work Phone: [phone] Hypochromatic red blood cell detectionon 03-24-2021 Hypochromia Ql (Bld) RARE [facility] Work Phone: No Panel Informationon 03-23 Vitamin D 25-Hydroxy 38.4 ng/mL [facility] Work Phone: Comment on above: Vitamin D 25(OH) Sta tus Range Deficiency <20 ng/mL (50nmol/L) Insufficiency 20 - 30 ng/mL (50 - 75 nmol/L) Sufficiency 30 - 100 ng/mL (75 - 250 nmol/L) Toxicity >100 ng/mL (>250 nmol/L) Basophil percentageon 2020 Bilirubin [Mass/Vol] 0.60 mg/dL 0.20-1.00 [facility] Work Phone: Comment on above: For patients on eltr ombopag therapy, use of Dimension Philpot TBIL is not recommended. Protein [Mass/Vol] 6.9 g/dL 6.4-8.2 [facility] Work Phone: INR in Blood by Coagulation assayon 03-22-2021 INR Coag (Bld) [Relative time] 1.0 {INR} [facility] Work Phone: Laboratory - Chemistry and C hemistry - challengeon 03-22-2021 ALP [Catalytic activity/Vol] 82 U/L 45-117 [facility] Work Phone: ALT [Catalytic activity/Vol] 21 U/L 16-61 [facility] Work Phone: Globulin (S) [Mass/Vol] 3.8 g/dL 2.2-4.2 [facility] Work Phone: Laboratory - Coagulationon 1 05-22-2020 aPTT Coag (Bld) [Time] 32.3 s 24.1-36.2 [facility] Work Phone: PT Coag (PPP) [Time] 12.7 s 11.7-14.9 [facility] Work Phone: No Panel Informationon 03-22 SARS-CoV-2 Antigen (Rapid) [facility] Work Phone: Serum or plasma albumin eliseo urement (mass/volume)on 03-22-2021 Albumin [Mass/Vol] 3.1 g/dL 3.2-5.0 [facility] Work Phone: Serum or plasma albumin/glob ulin mass ratioon 03-22-2021 Albumin/Globulin [Mass ratio] 0.8 {ratio} 0.9-2.4 [facility] Work Phone: Thin prep Papanicolaou smear with manual screeningon 03-22-2021 Thin prep Papanicolaou smear with manual screening 22 U/L 15-37 [facility] Work Phone: [facility] RANCHO [facility]ULL[facility] ([id number]) 1935 M Date Time Provider Department 01/22/21 ALEXA SCHAEFER During your visit today, we recorded the following information about you: Alexa Schaefer APRN.FACILITY PLANNER 01/22/2021 9:11 AM Signed Post-op carotid US [...] to repeat in 1 year with testing @[place]. 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] 06/12/2005 [...] Encounter Status:Closed by [facility] (K[facility]STIACC[facility] RANCHO MULLER ([id number]) 1935 M Date Time Provider Department 10/30/20 [...] is currently taking aspirin: Yes Alexa Schaefer APRN.FACILITY PLANNER Referring Provider: MARIELA KING [[id number]] Allergies As of Date: 10/30/2020 Noted Allergy [...] [Z98.890] Order(s): CAROTID [facility]ERIES [facility] [[id number]] Order #: [id number] FUTURE Prescriptions as of 10/30/2020 - vitamin [...] Date 10/30/2020 Noted Resolved DISC DISPLACEMENT NOS [[id number]] 06/12/2005 CORONARY ATHEROSCLER UNSPEC VESSEL [I25.10] 06/12/2005 [...] Encounter Status:Closed by ALEXA SCHAEFER on 10/30/20 [facility] Toi 10-30-2020 [facility]N Telephone ([place] RANCHO MULLRE ([id number]) 1935 M Date Time Provider Department 10/30/20 LILIYA MARES During your visit today, we recorded the following information about you: Claudia Arellano 10/30/2020 10:27 AM Signed Left detailed message regarding future appt: Carotid ultrasound 01/12/21 11am j@ [facility] [place] [address] [employer] mailed [...] Date 10/30/2020 Noted Resolved DISC DISPLACEMENT NOS [[id number]] 06/12/2005 CORONARY ATHEROSCLER UNSPEC VESSEL [I25.10] 06/12/2005 [...] Status:Closed by CLAUDIA ARELLANO on 10/30/[address] [facility] ANES POSTPROC EVALon 021 ANES POSTPROC EVAL HNO ID: [id number] Author: Rusty Gomez MD Service: Anesthesiology Author Type: Physician Type: Anesthesia Postprocedure Evaluation Filed: 10/01/2020 7:55 AM Note Text: POST ANESTHESIA EVALUATION NOTE : 1935 Procedure Summary Date: 09/30/20 Room / Location: [place] [address] [place] [address] OR Anesthesia Start: 914 Anesthesia Stop: 1209 [...] October 01, 2020 TIME: 7:54 AM CSN: [id number] Normal [facility] Basic metabolic 2000 panelon 10-01-2020 Anion gap [Moles/Vol] 9 mmol/L Normal 9-18 [facility] Comment on above: Order Comment: Speci men Type: BLOOD SPECIMEN Performed By: #### 2 4321-2, , 2776-05 #### [facility] CLIA [id number] [address] [place] [address] Calcium [Mass/Vol] 8.9 mg/dL Normal 8.5-10.2 [facility] Comment on above: Order Comment: Speci men Type: BLOOD SPECIMEN Performed By: #### 2 4321-2, , 2776-05 #### [facility] CLIA [id number] [address] [place] [address] Chloride [Moles/Vol] 101 mmol/L Normal 97-105 [facility] Comment on above: Order Comment: Speci men Type: BLOOD SPECIMEN Performed By: #### 2 4321-2, , 2776-05 #### [facility] CLIA [id number] [address] [place] [address] CO2 [Moles/Vol] 24 mmol/L Normal 22-30 [facility] Comment on above: Order Comment: Speci men Type: BLOOD SPECIMEN Performed By: #### 2 4321-2, , 2776-05 #### [facility] CLIA [id number] [address] [place] [address] Creatinine [Mass/Vol] 0.98 mg/dL Normal 0.73-1.22 [facility] Comment on above: Order Comment: Speci men Type: BLOOD SPECIMEN Performed By: #### 2 4321-2, , 2776-05 #### [facility] CLIA [id number] [address] [place] [address] GFR/1.73 sq M.predicted MDRD (S/P/Bld) [Vol rate/Area] mL/min/{1.73_m2} Normal [facility] Comment on above: Order Comment: [...] By: #### 2 4321-2, , 2776-05 #### [facility] CLIA [id number] [address] [place] [address] Glucose [Mass/Vol] 140 mg/dL High 74-99 [facility] Comment on above: Order Comment: Speci men Type: BLOOD SPECIMEN Result Comment: The [place] Diabetes [employer] (ADA) provides guidance for cutoff [...] Standards of Medical Care in Diabetes 2016, [place] [employer]. Diabetes Care. 2016.39(Suppl 1). Performed By: #### 2 1-2, , 2776-05 #### [facility] CLIA [id number] [address] [place] [address] Potassium [Moles/Vol] 4.8 mmol/L Normal 3.7-5.1 [facility] Comment on above: Order Comment: Speci men Type: BLOOD SPECIMEN Performed By: #### 2 1-2, , 2776-05 #### [facility] CLIA [id number] [address] [place] [address] Sodium [Moles/Vol] 134 mmol/L Low 136-144 [facility] Comment on above: Order Comment: Speci men Type: BLOOD SPECIMEN Performed By: #### 2 1-2, , 2776-05 #### [facility] CLIA [id number] 1 [place] [address] Urea nitrogen [Mass/Vol] 15 mg/dL Normal 9-24 [facility] Comment on above: Order Comment: Speci men Type: BLOOD SPECIMEN Performed By: #### 2 4321-2, , 2776-05 #### [facility] CLIA [id number] [address] [place] [address] CBC panel Auto (Bld)on 10-01 Erythrocyte distribution width (RBC) [Ratio] 13.6 % Normal 11.5-15.0 [facility] Comment on above: Order Comment: Speci men Type: BLOOD SPECIMEN Performed By: #### 2 4320-2, , 2776-05 #### [facility] CLIA [id number] [address] [place] [address] Hematocrit (Bld) [Volume fraction] 37.5 % Low 39.0-51.0 [facility] Comment on above: Order Comment: Speci men Type: BLOOD SPECIMEN Performed By: #### 2 4320-2, , 2776-05 #### [facility] CLIA [id number] [address] [place] [address] Hemoglobin (Bld) [Mass/Vol] 12.6 g/dL Low 13.0-17.0 [facility] Comment on above: Order Comment: Speci men Type: BLOOD SPECIMEN Performed By: #### 2 1-2, , 2776-05 #### [facility] CLIA [id number] 1 [place] [address] MCH (RBC) [Entitic mass] 31.0 pg Normal 26.0-34.0 [facility] Comment on above: Order Comment: Speci men Type: BLOOD SPECIMEN Performed By: #### 2 1-2, , 2776-05 #### [facility] CLIA [id number] [address] [place] [address] MCHC (RBC) [Mass/Vol] 33.6 g/dL Normal 30.5-36.0 [facility] Comment on above: Order Comment: Speci men Type: BLOOD SPECIMEN Performed By: #### 2 4321-2, , 2776-05 #### [facility] CLIA [id number] [address] [place] [address] MCV (RBC) [Entitic vol] 92.1 fL Normal 80.0-100.0 [facility] Comment on above: Order Comment: Speci men Type: BLOOD SPECIMEN Performed By: #### 2 4321-2, , 2776-05 #### [facility] CLIA [id number] 1 [place] [address] Nucleated RBC (Bld) [#/Vol] 10*3/uL Normal <0.01 [facility] Comment on above: Order Comment: Speci men Type: BLOOD SPECIMEN Performed By: #### 2 4321-2, , 2776-05 #### [facility] CLIA [id number] [address] [place] [address] Platelet mean volume (Bld) [Entitic vol] 9.2 fL Normal 9.0-12.7 [facility] Comment on above: Order Comment: Speci men Type: BLOOD SPECIMEN Performed By: #### 2 1-2, , 2776-05 #### [facility] CLIA [id number] [address] [place] [address] Platelets (Bld) [#/Vol] 193 10*3/uL Normal 150-400 [facility] Comment on above: Order Comment: Speci men Type: BLOOD SPECIMEN Performed By: #### 2 4321-2, , 2776-05 #### [facility] CLIA [id number] [address] [place] [address] RBC (Bld) [#/Vol] 4.07 10*6/uL Low 4.20-6.00 [facility] Comment on above: Order Comment: Speci men Type: BLOOD SPECIMEN Performed By: #### 2 4321-2, , 2776-05 #### [facility] CLIA [id number] [address] [place] [address] WBC (Bld) [#/Vol] 17.53 10*3/uL High 3.70-11.00 [facility] Comment on above: Order Comment: Speci men Type: BLOOD SPECIMEN Performed By: #### 2 4321-2, 00974-9, 2777-1 #### [facility] CLIA [id number] [address] [place] [id number] CNDSon 10-01-2020 CNDS HNO ID: [id number] Author: Eber Allison DO Service: General Surgery [...] you become constipated, you may use any vklu-fvg-jugrzwi treatment such as Milk of Magnesia, Sennakot, [...] call for appointment?: Yes Liliya Mares MD [phone] [address] [facility] [address] [facility] [address] PCP Requested Referral Additional Provider to Provider Information: Active Problems: Carotid stenosis Resolved Problems: * No resolved hospital problems. * Treatment Team: Attending Provider: Liliya Mares MD FOLLOW-UP APPOINTMENTS ALREADY SCHEDULED WITH A [facility] PROVIDER: Future Appointments Date Time Provider Department Center 10/30/2020 10:00 AM Alexa Schaefer APRN.FACILITY PLANNER [facility] Allergen Reactions - Penicillins Rash [...] AANDOx3, CN (more content not included)... Normal [facility] Magnesium SerPl-mCncon 10-01 Magnesium [Mass/Vol] 1.8 mg/dL Normal 1.7-2.3 [facility] Comment on above: Order Comment: Speci men Type: BLOOD SPECIMEN Performed By: #### 2 4321-2, 26261-9, 2777-1 #### [facility] CLIA [id number] 1 [place] [address] OPERATIVE NOon 10-01-2020 OPERATIVE NO HNO ID: [id number] Author: Liliya Mares MD Service: Vascular Surgery Author Type: Physician Type: Operative Report Filed: 10/01/2020 4:14 PM Note Text: [facility] - Operative Report RANCHO MULLER : 1935 AGE: 84. SEX: M PATIENT TYPE: I HOSP SVC: MIKI LOCATION: [facility] ATTENDING PHYSICIAN: LILIYA MARES CSN NUMBER: [id number] DATE OF SURGERY/PROCEDURE: 09/30/2020 INCISION/PROCEDURE START TIME: 9:59 AM INCISION CLOSE/PROCEDURE END TIME: 11:32 AM PREOPERATIVE DIAGNOSIS: Carotid stenosis. POSTOPERATIVE DIAGNOSIS: Carotid stenosis. SURGEON: Liliya Mares MD EXHIBITS CURATOR: Teacher Adult Education: Fermin Cifuentes [place] SURGERY/PROCEDURE: Right carotid endarterectomy. [...] Recovery in stable condition. Liliya Mares MD LM:[id number] /[id number] [facility] Phosphate SerPl-mCncon 10-01 Phosphate [Mass/Vol] 3.4 mg/dL Normal 2.7-4.8 [facility] Comment on above: Order Comment: Speci men Type: BLOOD SPECIMEN Performed By: #### 2 4321-2, 56536-5, 2777-1 #### [facility] CLIA [id number] [address] [place] [address] ANES PRE-OPon 09-30-2020 ANES PRE-OP HNO ID: [id number] Author: Rusty Gomez MD Service: Anesthesiology Author [...] Coronary atherosclerosis of unspecified type of vessel, [place] or graft (+) HTN (hypertension) (+) Left [...] September 30, 2020 TIME: 8:49 AM CSN: [id number] [facility] BRIEF OP NOTon 09-30-2020 BRIEF OP NOT HNO ID: [id number] Author: Eber Allison DO Service: General Surgery [...] BRIEF OPERATIVE / PROCEDURE NOTE LOG ID: [id number] SURGERY/PROCEDURE DATE: 09/30/2020 INCISION/PROCEDURE START TIME: 9:59 AM INCISION CLOSE/PROCEDURE END TIME: 11:32 AM SURGEON(S)/PROCEDURALI ST(S) AND EXHIBITS CURATOR(S): Surgeon(s) and Role: * Liliya Mares MD - Primary Teacher Adult Education: Fermin Cifuentes [place] SURGERY/PROCEDURE(S): R carotid endarterectomy ANESTHESIA: General FINDINGS: atherosclerotic plaque at the carotid bulb ESTIMATED BLOOD LOSS: 155 mls SPECIMENS: atherosclerotic plaque COMPLICATIONS: None PRE-OP/PRE-PROCEDURE DIAGNOSIS: internal carotid atherosclerosis, carotid stenosis POST-OP/POST-PROCEDURE DIAGNOSIS: Same as Preop SIGNATURE: Eber Allison DO PATIENT NAME: Rancho Muller DATE: September 30, 2020 TIME: 1:[address] [facility] Basic metabolic 2000 panelon 09-30-2020 Anion gap [Moles/Vol] 7 mmol/L Low 9-18 [facility] Comment on above: Order Comment: Speci men Type: BLOOD SPECIMEN Performed By: #### 2 4321-2 #### [facility] CLIA [id number] [address] [place] [address] Calcium [Mass/Vol] 9.2 mg/dL Normal 8.5-10.2 [facility] Comment on above: Order Comment: Speci men Type: BLOOD SPECIMEN Performed By: #### 2 4321-2 #### [facility] CLIA [id number] 1 [place] [address] Chloride [Moles/Vol] 105 mmol/L Normal 97-105 [facility] Comment on above: Order Comment: Speci men Type: BLOOD SPECIMEN Performed By: #### 2 4321-2 #### [facility] CLIA [id number] [address] [place] [address] CO2 [Moles/Vol] 27 mmol/L Normal 22-30 [facility] Comment on above: Order Comment: Speci men Type: BLOOD SPECIMEN Performed By: #### 2 4321-2 #### [facility] CLIA [id number] 1 [place] [address] Creatinine [Mass/Vol] 0.98 mg/dL Normal 0.73-1.22 [facility] Comment on above: Order Comment: Speci men Type: BLOOD SPECIMEN Performed By: #### 2 4321-2 #### [facility] CLIA [id number] 1 [place] [address] GFR/1.73 sq M.predicted MDRD (S/P/Bld) [Vol rate/Area] mL/min/{1.73_m2} Normal [facility] Comment on above: Order Comment: [...] GFR. Performed By: #### 2 4321-2 #### [facility] CLIA [id number] [address] [place] [address] Glucose [Mass/Vol] 158 mg/dL High 74-99 [facility] Comment on above: Order Comment: Speci men Type: BLOOD SPECIMEN Result Comment: The [place] Diabetes [employer] (ADA) provides guidance for cutoff [...] Standards of Medical Care in Diabetes 2016, [place] [employer]. Diabetes Care. 2016.39(Suppl 1). Performed By: #### 2 4321-2 #### [facility] CLIA [id number] [address] [place] [address] Potassium [Moles/Vol] 4.3 mmol/L Normal 3.7-5.1 [facility] Comment on above: Order Comment: Speci men Type: BLOOD SPECIMEN Performed By: #### 2 4321-2 #### [facility] CLIA [id number] [address] [place] [address] Sodium [Moles/Vol] 139 mmol/L Normal 136-144 [facility] Comment on above: Order Comment: Speci men Type: BLOOD SPECIMEN Performed By: #### 2 4321-2 #### [facility] CLIA [id number] [address] [place] [address] Urea nitrogen [Mass/Vol] 15 mg/dL Normal 9-24 [facility] Comment on above: Order Comment: Speci men Type: BLOOD SPECIMEN Performed By: #### 2 4321-2 #### [facility] CLIA [id number] [address] [place] [address] CBC W Auto Differential pane l (Bld)on 09-30-2020 Basophils (Bld) [#/Vol] 0.06 10*3/uL Normal <0.11 [facility] Comment on above: Order Comment: Speci men Type: BLOOD SPECIMEN Performed By: #### 2 4321-2, , 2776-05 #### [facility] CLIA [id number] [address] [place] [address] Basophils/100 WBC (Bld) 0.4 % Normal [facility] Comment on above: Order Comment: Speci men Type: BLOOD SPECIMEN Performed By: #### 2 4321-2, , 2776-05 #### [facility] CLIA [id number] [address] [place] [address] Differential cell count method Nom (Bld) Auto Normal [facility] Comment on above: Order Comment: Speci men Type: BLOOD SPECIMEN Performed By: #### 2 4321-2, , 2776-05 #### [facility] CLIA [id number] [address] [place] [address] Eosinophils (Bld) [#/Vol] 0.07 10*3/uL Normal <0.46 [facility] Comment on above: Order Comment: Speci men Type: BLOOD SPECIMEN Performed By: #### 2 4321-2, , 2776-05 #### [facility] CLIA [id number] [address] [place] [address] Eosinophils/100 WBC (Bld) 0.5 % Normal [facility] Comment on above: Order Comment: Speci men Type: BLOOD SPECIMEN Performed By: #### 2 4321-2, , 2776-05 #### [facility] CLIA [id number] [address] [place] [address] Erythrocyte distribution width (RBC) [Ratio] 13.8 % Normal 11.5-15.0 [facility] Comment on above: Order Comment: Speci men Type: BLOOD SPECIMEN Performed By: #### 2 4321-2, , 2776-05 #### [facility] CLIA [id number] [address] [place] [address] Hematocrit (Bld) [Volume fraction] 42.8 % Normal 39.0-51.0 [facility] Comment on above: Order Comment: Speci men Type: BLOOD SPECIMEN Performed By: #### 2 4321-2, , 2776-05 #### [facility] CLIA [id number] [address] [place] [address] Hemoglobin (Bld) [Mass/Vol] 14.7 g/dL Normal 13.0-17.0 [facility] Comment on above: Order Comment: Speci men Type: BLOOD SPECIMEN Performed By: #### 2 4321-2, , 2776-05 #### [facility] CLIA [id number] [address] [place] [address] IMMATURE GRAN % 0.6 % Normal [facility] Comment on above: Order Comment: Speci men Type: BLOOD SPECIMEN Performed By: #### 2 4321-2, , 2776-05 #### [facility] CLIA [id number] [address] [place] [address] IMMATURE GRAN ABS 0.09 k/uL Normal <0.10 [facility] Comment on above: Order Comment: Speci men Type: BLOOD SPECIMEN Performed By: #### 2 4321-2, , 2776-05 #### [facility] CLIA [id number] [address] [place] [address] Lymphocytes (Bld) [#/Vol] 3.17 10*3/uL Normal 1.00-4.00 [facility] Comment on above: Order Comment: Speci men Type: BLOOD SPECIMEN Performed By: #### 2 4321-2, , 2776-05 #### [facility] CLIA [id number] [address] [place] [address] Lymphocytes/100 WBC (Bld) 22.9 % Normal [facility] Comment on above: Order Comment: Speci men Type: BLOOD SPECIMEN Performed By: #### 2 4321-2, , 2776-05 #### [facility] CLIA [id number] [address] [place] [address] MCH (RBC) [Entitic mass] 31.5 pg Normal 26.0-34.0 [facility] Comment on above: Order Comment: Speci men Type: BLOOD SPECIMEN Performed By: #### 2 4321-2, , 2776-05 #### [facility] CLIA [id number] [address] [place] [address] MCHC (RBC) [Mass/Vol] 34.3 g/dL Normal 30.5-36.0 [facility] Comment on above: Order Comment: Speci men Type: BLOOD SPECIMEN Performed By: #### 2 4320-2, , 2776-05 #### [facility] CLIA [id number] [address] [place] [address] MCV (RBC) [Entitic vol] 91.8 fL Normal 80.0-100.0 [facility] Comment on above: Order Comment: Speci men Type: BLOOD SPECIMEN Performed By: #### 2 4320-2, , 2776-05 #### [facility] CLIA [id number] [address] [place] [address] Monocytes (Bld) [#/Vol] 0.83 10*3/uL Normal <0.87 [facility] Comment on above: Order Comment: Speci men Type: BLOOD SPECIMEN Performed By: #### 2 1-2, , 2776-05 #### [facility] CLIA [id number] [address] [place] [address] Monocytes/100 WBC (Bld) 6.0 % Normal [facility] Comment on above: Order Comment: Speci men Type: BLOOD SPECIMEN Performed By: #### 2 1-2, , 2776-05 #### [facility] CLIA [id number] [address] [place] [address] Neutrophils (Bld) [#/Vol] 9.63 10*3/uL High 1.45-7.50 [facility] Comment on above: Order Comment: Speci men Type: BLOOD SPECIMEN Performed By: #### 2 4321-2, , 2776-05 #### [facility] CLIA [id number] [address] [place] [address] Neutrophils/100 WBC (Bld) 69.6 % Normal [facility] Comment on above: Order Comment: Speci men Type: BLOOD SPECIMEN Performed By: #### 2 4321-2, , 2776-05 #### [facility] CLIA [id number] [address] [place] [address] Nucleated RBC (Bld) [#/Vol] 10*3/uL Normal <0.01 [facility] Comment on above: Order Comment: Speci men Type: BLOOD SPECIMEN Performed By: #### 2 4321-2, , 2776-05 #### [facility] CLIA [id number] [address] [place] [address] Nucleated RBC/100 WBC (Bld) [Ratio] 0.0 /[address] [facility] Comment on above: Order Comment: Speci men Type: BLOOD SPECIMEN Performed By: #### 2 1-2, , 2776-05 #### [facility] CLIA [id number] [address] [place] [address] Platelet mean volume (Bld) [Entitic vol] 8.8 fL Low 9.0-12.7 [facility] Comment on above: Order Comment: Speci men Type: BLOOD SPECIMEN Performed By: #### 2 4321-2, , 2776-05 #### [facility] CLIA [id number] [address] [place] [address] Platelets (Bld) [#/Vol] 219 10*3/uL Normal 150-400 [facility] Comment on above: Order Comment: Speci men Type: BLOOD SPECIMEN Performed By: #### 2 4321-2, , 2776-05 #### [facility] CLIA [id number] [address] [place] [address] RBC (Bld) [#/Vol] 4.66 10*6/uL Normal 4.20-6.00 [facility] Comment on above: Order Comment: Speci men Type: BLOOD SPECIMEN Performed By: #### 2 4321-2, 41388-3, 7-1 #### [facility] CLIA [id number] [address] [place] [address] WBC (Bld) [#/Vol] 13.85 10*3/uL High 3.70-11.00 [facility] Comment on above: Order Comment: Speci men Type: BLOOD SPECIMEN Performed By: #### 2 4321-2, 23699-5, 2776- #### [facility] CLIA [id number] [address] [place] [address] PT panel Coag (PPP)on 2020 INR Coag (PPP) [Relative time] 1.1 {INR} Normal 0.9-1.3 [facility] Comment on above: Order Comment: Speci men Type: BLOOD SPECIMEN Result Comment: Anjana min K Antagonist (VKA) Therapeutic Range: INR 2 to 3 (Target INR of 2.5) Note: For patients treated with VKA drugs, such as warfarin, the [employer] [employer] 2012 Guideline recommends [...] Chest 2012, 141:7S-47S Raina LALA et al. [facility] 2017, 70: 252-289 Performed By: #### 1 4979-9, 43115-8 #### [facility] CLIA [id number] [address] [place] [address] PT Coag (PPP) [Time] 11.1 s Normal 9.7-13.0 [facility] Comment on above: Order Comment: Speci men Type: BLOOD SPECIMEN Performed By: #### 1 4979-9, 85974-6 #### [facility] CLIA [id number] [address] [place] [address] SURGICAL PATHOLOGYon CASE REPORT Normal [facility] Comment on above: Order Comment: Speci men Type: BLOOD SPECIMEN Result Comment: Surg ical Pathology Report Case: [id number] Authorizing Provider: Liliya Mares MD Collected: 09/30/2020 11:16 AM Ordering Location: [place] [facility] [place] Received: 09/30/2020 12:25 PM Pathologist: Shyla Del Toro MD Specimen: PLAQUE Performed By: #### 2 4321-2, 73718-8, 2776-05 #### [facility] CLIA [id number] [address] [place] [address] [facility] Comment on above: Order Comment: Speci men Type: BLOOD SPECIMEN Result Comment: A. P sidney, right carotid artery, endarterectomy Fragments of calcified atherosclerotic plaque. Performed By: #### 2 4321-2, 50210-0, 2776-05 #### [facility] CLIA [id number] [address] [place] [address] FINAL PERFORMING LAB Normal [facility] Comment on above: Order Comment: Speci men Type: BLOOD SPECIMEN Result Comment: Diag nostic interpretation performed at [facility], [address] [place] [address] CLIA# [id number] Nut Culler: Mariela Melissa M.D. Performed By: #### 2 4321-2, 58343-1, 2776-05 #### [facility] CLIA [id number] [address] [place] [address] GROSS DESCRIPTION A. PLAQUE. Normal [facility] Comment on above: Order Comment: Speci men Type: BLOOD SPECIMEN Result Comment: Rece ived in formalin labeled plaque is a segment of yellow-gilmore plaque-like material measuring 2.6 x 1.6 x 1.2 cm. Upon sectioning areas of ulceration and calcification are present. An attached thrombus is not seen. Electronic Coils Supervisor sections are submitted in formalin in 1 cassette following a brief period of decalcification. KVB/maury Gross examination performed at [facility], [address] [place] [address] CLIA# [id number] Performed By: #### 2 4321-2, 43615-2, 2777-1 #### [facility] CLIA [id number] [address] [place] [phone] aPTT PPPon 09-30-2020 aPTT Coag (PPP) [Time] 64.6 s High 23.0-32.4 [facility] Comment on above: Order Comment: Speci men Type: BLOOD SPECIMEN Performed By: #### 1 4979-9, 98647-8 #### [facility] CLIA [id number] [address] [place] [id number] CNPNon 09-29-2020 CNPN Telephone (AGSportfort) RANCHO MULLER ([id number]) 1935 M Date Time Provider Department 09/29/20 [...] Date Reviewed: 09/24/2020 Reviewed by: Bethany Moulton APRN.FACILITY PLANNER - Fully Assessed Reason for Visit: Cardiac [...] Date 09/29/2020 Noted Resolved DISC DISPLACEMENT NOS [[id number]] 06/12/2005 CORONARY ATHEROSCLER UNSPEC VESSEL [I25.10] 06/12/2005 [...] Encounter Status:Closed by [place] on 09/29/20 [facility] CNPN Telephone (AGGroupsiteACC) RANCHO MULLER ([id number]) 1935 M Date Time Provider Department 09/29/20 LILIYA MARES During your visit today, we recorded the following information about you: Allergies As of Date: 09/29/2020 Noted Allergy Reaction PENICILLINS 05/17/2005 2 - Rash ASPIRIN 05/17/2005 8 - GI Upset Comments: GI upset Can take coated low dose asa Date Reviewed: 09/24/2020 Reviewed by: Bethany Moulton APRN.FACILITY PLANNER - Fully Assessed Reason for Visit: Cardiac [...] Date 09/29/2020 Noted Resolved DISC DISPLACEMENT NOS [[id number]] 06/12/2005 CORONARY ATHEROSCLER UNSPEC VESSEL [I25.10] 06/12/2005 [...] Status:Closed by [place] on 09/29/[address] [facility] PreOp/PreProc COVIDon 2020 SARS-CoV-2 (COVID-19) RNA ELVIRA+probe Ql (Unsp spec) UPPER RESPIRATORY TRACT SWAB Normal [facility] Comment on above: Performed By: #### P OCOVD #### [facility] [address] [place] [id number] SARS-CoV-2 (COVID-19) RNA ELVIRA+probe Ql (Unsp spec) Negative for COVID19 (SARS CoV2) by RT-PCR or equivalent method. Normal Negative for COVID19 (SARS CoV2) by RT-PCR or equivalent method. [facility] Comment on above: Result Comment: This test was developed and its performance characteristics determined by [facility] [place]. This test has been authorized by FDA under an Emergency Use Authorization (EUA). This test has been validated in accordance with the FDA's Guidance Document Policy for Diagnostics Testing in Laboratories Certified to Perform High Complexity Testing under CLIA prior to Emergency use Authorization for Coronavirus Disease 2019 during the Public Health Emergency issued on June 29, 2019. Test performed by [facility], [facility] [place], [address] [place], [place] [address]. Performed By: #### P OCOVD #### [facility] [address] [place] [address] Basic metabolic 2000 panelon 09-24-2020 Anion gap [Moles/Vol] 9 mmol/L Normal 9-18 [facility] Comment on above: Order Comment: Speci men Type: BLOOD SPECIMEN Performed By: #### 2 4321-2, , 2776-05 #### [facility] CLIA [id number] [address] [place] [address] Calcium [Mass/Vol] 10.0 mg/dL Normal 8.5-10.2 [facility] Comment on above: Order Comment: Speci men Type: BLOOD SPECIMEN Performed By: #### 2 4321-2, , 2776-05 #### [facility] CLIA [id number] [address] [place] [address] Chloride [Moles/Vol] 102 mmol/L Normal 97-105 [facility] Comment on above: Order Comment: Speci men Type: BLOOD SPECIMEN Performed By: #### 2 4321-2, , 2776-05 #### [facility] CLIA [id number] [address] [place] [address] CO2 [Moles/Vol] 29 mmol/L Normal 22-30 [facility] Comment on above: Order Comment: Speci men Type: BLOOD SPECIMEN Performed By: #### 2 4321-2, , 2776-05 #### [facility] CLIA [id number] [address] [place] [address] Creatinine [Mass/Vol] 1.09 mg/dL Normal 0.73-1.22 [facility] Comment on above: Order Comment: Speci men Type: BLOOD SPECIMEN Performed By: #### 2 4321-2, 34501-7, 2776-05 #### [facility] CLIA [id number] [address] [place] [address] GFR/1.73 sq M.predicted MDRD (S/P/Bld) [Vol rate/Area] mL/min/{1.73_m2} Normal [facility] Comment on above: Order Comment: [...] By: #### 2 4321-2, , 2776-05 #### [facility] CLIA [id number] [address] [place] [address] Glucose [Mass/Vol] 99 mg/dL Normal 74-99 [facility] Comment on above: Order Comment: [facility] Type: BLOOD SPECIMEN Result Comment: The [place] Diabetes Association (ADA) provides guidance for cutoff [...] Standards of Medical Care in Diabetes 2016, [place] Diabetes [employer]. Diabetes Care. 2016.39(Suppl 1). Performed By: #### 2 4321-2, , 2776-05 #### [facility] CLIA [id number] [address] [place] [address] Potassium [Moles/Vol] 5.2 mmol/L High 3.7-5.1 [facility] Comment on above: Order Comment: Speci men Type: BLOOD SPECIMEN Performed By: #### 2 4321-2, , 2776-05 #### [facility] CLIA [id number] [address] [place] [address] Sodium [Moles/Vol] 140 mmol/L Normal 136-144 [facility] Comment on above: Order Comment: Speci men Type: BLOOD SPECIMEN Performed By: #### 2 4321-2, , 2776-05 #### [facility] CLIA [id number] [address] [place] [address] Urea nitrogen [Mass/Vol] 15 mg/dL Normal 9-24 [facility] Comment on above: Order Comment: Speci men Type: BLOOD SPECIMEN Performed By: #### 2 4321-2, , 2776-05 #### [facility] CLIA [id number] [address] [place] [address] CBC panel Auto (Bld)on 09-24 Erythrocyte distribution width (RBC) [Ratio] 14.2 % Normal 11.5-15.0 [facility] Comment on above: Order Comment: Speci men Type: BLOOD SPECIMEN Performed By: #### 5 8410-2 #### [facility] CLIA [id number] [address] [place] [address] Hematocrit (Bld) [Volume fraction] 43.1 % Normal 39.0-51.0 [facility] Comment on above: Order Comment: Speci men Type: BLOOD SPECIMEN Performed By: #### 5 8410-2 #### [facility] CLIA [id number] [address] [place] [address] Hemoglobin (Bld) [Mass/Vol] 14.4 g/dL Normal 13.0-17.0 [facility] Comment on above: Order Comment: Speci men Type: BLOOD SPECIMEN Performed By: #### 5 8410-2 #### [facility] CLIA [id number] [address] [place] [address] MCH (RBC) [Entitic mass] 31.4 pg Normal 26.0-34.0 [facility] Comment on above: Order Comment: Speci men Type: BLOOD SPECIMEN Performed By: #### 5 8410-2 #### [facility] CLIA [id number] [address] [place] [address] MCHC (RBC) [Mass/Vol] 33.4 g/dL Normal 30.5-36.0 [facility] Comment on above: Order Comment: Speci men Type: BLOOD SPECIMEN Performed By: #### 5 8410-2 #### [facility] CLIA [id number] [address] [place] [address] MCV (RBC) [Entitic vol] 94.1 fL Normal 80.0-100.0 [facility] Comment on above: Order Comment: Speci men Type: BLOOD SPECIMEN Performed By: #### 5 8410-2 #### [facility] CLIA [id number] [address] [place] [address] Nucleated RBC (Bld) [#/Vol] 10*3/uL Normal <0.01 [facility] Comment on above: Order Comment: Speci men Type: BLOOD SPECIMEN Performed By: #### 5 8410-2 #### [facility] CLIA [id number] [address] [place] [address] Platelet mean volume (Bld) [Entitic vol] 9.6 fL Normal 9.0-12.7 [facility] Comment on above: Order Comment: Speci men Type: BLOOD SPECIMEN Performed By: #### 5 8410-2 #### [facility] CLIA [id number] [address] [place] [address] Platelets (Bld) [#/Vol] 222 10*3/uL Normal 150-400 [facility] Comment on above: Order Comment: Speci men Type: BLOOD SPECIMEN Performed By: #### 5 8410-2 #### [facility] CLIA [id number] [address] [place] [address] RBC (Bld) [#/Vol] 4.58 10*6/uL Normal 4.20-6.00 [facility] Comment on above: Order Comment: Speci men Type: BLOOD SPECIMEN Performed By: #### 5 8410-2 #### [facility] CLIA [id number] [address] [place] [address] WBC (Bld) [#/Vol] 8.85 10*3/uL Normal 3.70-11.00 [facility] Comment on above: Order Comment: Speci men Type: BLOOD SPECIMEN Performed By: #### 5 8410-2 #### [facility] CLIA [id number] [address] [place] [id number] HISTORY PHYSICALon HISTORY PHYSICAL HNO ID: [id number] Author: Bethany Moulton APRN.FACILITY PLANNER Service: ? Author Type: Nurse Practitioner Type: [...] Coronary Atherosclerosis of Unspecified Type of Vessel, [place] Or Graft Hld (Hyperlipidemia) Depression Esophageal Reflux [...] states he had carotid [place]. He was told he had blockage of [...] with Dr. Mares Surgery [place] be at [place] Have you been in contact with someone with known coronavirus/Covid 19? no Have you had surgery or pre testing at [facility] in the past 3 years? Yes [...] Negative for: chest pain, CHF and recent [place]. GI: Positive for: GERD Negative for: abdominal [...] Coronary atherosclerosis of unspecified type of vessel, [place] or graft - COVID-19 vaccine administered 06/18/2020 [...] HEART CATHETERIZATION 12/09/2009 Cardiac cath, R heart, [facility] FAMILY HISTORY Problem Re (more content not included)... Normal [facility] PT panel Coag (PPP)on 2020 INR Coag (PPP) [Relative time] 1.0 {INR} Normal 0.9-1.3 [facility] Comment on above: Order Comment: Speci men Type: BLOOD SPECIMEN Result Comment: Anjana min K Antagonist (VKA) Therapeutic Range: INR 2 to 3 (Target INR of 2.5) Note: For patients treated with VKA drugs, such as warfarin, the [place] College [employer]icians 2012 Guideline recommends [...] Chest 2012, 141:7S-47S Raina RA, et al. [facility] 2017, 70: 252-289 Performed By: #### 2 4321-2, 92009-3, 2777-1 #### [facility] CLIA [id number] [address] [place] [address] PT Coag (PPP) [Time] 10.1 s Normal 9.7-13.0 [facility] Comment on above: Order Comment: Speci men Type: BLOOD SPECIMEN Performed By: #### 2 4321-2, 17281-2, 2777-1 #### [facility] CLIA [id number] [address] [place] [address] CNOVon 08-21-2020 CNOV Office Visit (AGVASACC) RANCHO MULLER ([id number]) 1935 M Date Time Provider Department 08/21/20 10:30 AM ALEXA SCHAEFER (ROTARY DRILLER, FACILITY PLANNER)AGROMI During your visit today, we recorded the following information about you: Pulse Blood pressure Weight Height 61/minute 122/60 97.5 kg 1.829 m Alexa Schaefer APRN.FACILITY PLANNER, FACILITY PLANNER 08/21/2020 2:13 PM Signed [place] Yohana [...] is currently taking aspirin: Yes Alexa Schaefer APRN.FACILITY PLANNER Referring Provider: MARIELA KING [[id number]] Allergies As of Date: 08/21/2020 Noted Allergy [...] Date 08/21/2020 Noted Resolved DISC DISPLACEMENT NOS [[id number]] 06/12/2005 CORONARY ATHEROSCLER UNSPEC VESSEL [I25.10] 06/12/2005 [...] Status:Closed by ALEXA SCHAEFER CNP on 08/21/20 [facility] Toi 08-21-2020 TARA Telephone (AGVASACC) YOHANARANCHO ([id number]) 1935 M Date Time Provider Department 08/21/20 LILIYA MARES During your visit today, we recorded the following information about you: Alexa Schaefer APRN.CNP, CNP 08/21/2020 11:30 AM Signed Orders signed. Thank you, Alexa Schaefer APRN.CNP [facility] 08/21/2020 2:42 PM Signed I have scheduled the patient for a Right Carotid Endarterectomy on 09/30/20 @ 9 am with an arrival time of 7 am Pretesting is 09/23/20 @ 1040 at [facility] Covid testing is 09/27/20 @ 1020am at the [facility] Post op 10/30/20 @ 10 am with Alexa Mailed out info 08/21/20 Allergies As of Date: 08/21/2020 Noted Allergy Reaction PENICILLINS 05/17/2005 2 - Rash ASPIRIN 05/17/2005 8 - GI Upset Comments: GI upset Can take coated low dose asa Date Reviewed: 08/21/2020 Reviewed by: Makayla FongProgram Development Manager) Kenny - Fully Assessed Reason for Visit: Schedule Surgery [1330] Primary Visit Diagnosis:Bilateral carotid artery stenosis [I65.23] Order(s):SURGICAL REQUEST - ELECTIVE (11/2019) [7167032] Order #: [id number]: 1 HANDP FOR SURGERY [[id number]] Order #: [id number] CBC [SQCBC] Order #: [id number] FUTURE BASIC METABOLIC PNL [SQBMP] Order #: [id number] FUTURE PROTHROMBIN TIME/PT [SQPT] Order #: [id number] FUTURE PRE-PROCEDURE AND PRE-OPERATIVE COVID [SQPOCOVD] Order #: [id number] FUTURE Prescriptions as of 08/21/2020 Sig: VITAMIN [...] Date 08/21/2020 Noted Resolved DISC DISPLACEMENT NOS [[id number]] 06/12/2005 CORONARY ATHEROSCLER UNSPEC VESSEL [I25.10] 06/12/2005 [...] Status:Closed by ALEXA SCHAEFER CNP on 08/21/20 [facility] Toi 08-04-2020 CNPN Telephone (AGVASACC) RANCHO MULLER ([id number]) 1935 M Date Time Provider Department 08/04/20 ALEXA SCHAEFER (ROTARY DRILLER, FACILITY PLANNER)KRISTIACC During your visit today, we recorded the [...] Will get pt's BP checked. Alexa Schaefer APRN.FACILITY PLANNER Allergies As of Date: 08/04/2020 Noted Allergy [...] Date 08/04/2020 Noted Resolved DISC DISPLACEMENT NOS [[id number]] 06/12/2005 CORONARY ATHEROSCLER UNSPEC VESSEL [I25.10] 06/12/2005 [...] by ALEXA SCHAEFER CNP on 08/06/[address] [facility] Basic metabolic 2000 panelon 07-23-2020 Anion gap [Moles/Vol] 9 mmol/L Normal 9-18 [facility] Comment on above: Order Comment: Speci men Type: BLOOD SPECIMEN Performed By: #### 2 4321-2 #### [facility] CLIA [id number] [address] [place] [address] Calcium [Mass/Vol] 9.0 mg/dL Normal 8.5-10.2 [facility] Comment on above: Order Comment: Speci men Type: BLOOD SPECIMEN Performed By: #### 2 4321-2 #### [facility] CLIA [id number] [address] [place] [address] Chloride [Moles/Vol] 101 mmol/L Normal 97-105 [facility] Comment on above: Order Comment: Speci men Type: BLOOD SPECIMEN Performed By: #### 2 4321-2 #### [facility] CLIA [id number] [address] [place] [address] CO2 [Moles/Vol] 24 mmol/L Normal 22-30 [facility] Comment on above: Order Comment: Speci men Type: BLOOD SPECIMEN Performed By: #### 2 4321-2 #### [facility] CLIA [id number] [address] [place] [address] Creatinine [Mass/Vol] 1.05 mg/dL Normal 0.73-1.22 [facility] Comment on above: Order Comment: Speci men Type: BLOOD SPECIMEN Performed By: #### 2 4321-2 #### [facility] CLIA [id number] [address] [place] [address] GFR/1.73 sq M.predicted MDRD (S/P/Bld) [Vol rate/Area] mL/min/{1.73_m2} Normal [facility] Comment on above: Order Comment: [...] GFR. Performed By: #### 2 4321-2 #### [facility] CLIA [id number] [address] [place] [address] Glucose [Mass/Vol] 135 mg/dL High 74-99 [facility] Comment on above: Order Comment: Speci men Type: BLOOD SPECIMEN Result Comment: The [place] Diabetes Association (ADA) provides guidance for cutoff [...] Standards of Medical Care in Diabetes 2016, [place] Diabetes Association. Diabetes Care. 2016.39(Suppl 1). Performed By: #### 2 4321-2 #### [facility] CLIA [id number] [address] [place] [address] Potassium [Moles/Vol] 4.7 mmol/L Normal 3.7-5.1 [facility] Comment on above: Order Comment: Speci men Type: BLOOD SPECIMEN Performed By: #### 2 4321-2 #### [facility] CLIA [id number] [address] [place] [address] Sodium [Moles/Vol] 134 mmol/L Low 136-144 [facility] Comment on above: Order Comment: Speci men Type: BLOOD SPECIMEN Performed By: #### 2 4321-2 #### [facility] CLIA [id number] [address] [place] [address] Urea nitrogen [Mass/Vol] 19 mg/dL Normal 9-24 [facility] Comment on above: Order Comment: Speci men Type: BLOOD SPECIMEN Performed By: #### 2 4321-2 #### [facility] CLIA [id number] [address] [place] [address] [facility] HNO ID: [id number] Author: Joelle (Rn) JESSENIA Marie Service: ? Author Type: Registered Nurse Type: Care Mgt Initial Assessment Filed: 07/23/2020 11:13 AM Note Text: CARE MANAGEMENT: ASSESSMENT AND DISCHARGE PLAN SERVICE DATE: July 23, 2020 SERVICE TIME: 11:11 AM PRIMARY CARE PHYSICIAN: Mariela King MD ADMISSION STATUS: Inpatient Needs Prior to Discharge: Discharge Prescriptions MEDICAL: [employer] MEDICARE PPO Patient/Electronic Coils Supervisor Stated Goals: To return home to life as it was;To be cured/healed Health Insurance: [employer] Medicare Health Issues Impacting Discharge Plan: Newly diagnosed Newly Diagnosed: CEA Last Discharge Date: 03/03/20 Is this Within the Past 30 days? Last discharge within 30 days: No Advance Directive: Current Advance Directive: Health Care Power of Doughnut Dough Mixer;Living Will In Chart: No Manager Market Research Attempted to Assist with AD Completion: Yes [...] Cane Has the Patient Been in a Retirement Facility in the Past 30 days?: No SOCIAL: Living Arrangements: Home Lives With: Spouse Financial Resources: Retired Primary Contact: Extended Emergency Contact Information Primary Emergency Contact: LEA MULLER Address: [address] [place] [id number] [address] Relation: Spouse Supportive Patient Contact:: Yes [...] Completely I feel financially burdened by my joi-ic-bcboof expenses for my prescription medication:: 0 - Disagree Completely Risk Score: 0 Patient is categorized as: Low risk < 2 Are you interested in bedside delivery of your medications? No Is Patient Psychosocially Complex?: No ASSESSMENT AND PLAN: Medical Needs: Medical Needs: None Psychosocial Needs: Psychosocial Needs: None FREEDOM OF CHOICE EXPLAINED: [place] of Choice Given: No Reason Not Given: No placements necessary POTENTIAL TRANSITION PLANS Home Met with pt and , explained CM role. 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 Amb with cane when out of the home. Drives. Plan [place]. No transitional care needs identified at this time. [facility] [place]. SIGNATURE: Joelle Marie RN PATIENT NAME: [place] Muller DATE: July 23, 2020 TIME: 11:11 AM PAGER/CONTACT #: [phone] [facility] CBC W Auto Differential pane l (Bld)on 07-23-2020 Basophils (Bld) [#/Vol] 0.03 10*3/uL Normal <0.11 [facility] Comment on above: Order Comment: Speci men Type: BLOOD SPECIMEN Performed By: #### 2 4321-2, , 2776-05 #### [facility] CLIA [id number] [address] [place] [address] Basophils/100 WBC (Bld) 0.2 % Normal [facility] Comment on above: Order Comment: Speci men Type: BLOOD SPECIMEN Performed By: #### 2 4321-2, , 2776-05 #### [facility] CLIA [id number] [address] [place] [address] Differential cell count method Nom (Bld) Auto Normal [facility] Comment on above: Order Comment: Speci men Type: BLOOD SPECIMEN Performed By: #### 2 4321-2, , 2776-05 #### [facility] CLIA [id number] [address] [place] [address] Eosinophils (Bld) [#/Vol] 10*3/uL Normal <0.46 [facility] Comment on above: Order Comment: Speci men Type: BLOOD SPECIMEN Performed By: #### 2 4321-2, , 2776-05 #### [facility] CLIA [id number] [address] [place] [address] Eosinophils/100 WBC (Bld) 0.0 % Normal [facility] Comment on above: Order Comment: Speci men Type: BLOOD SPECIMEN Performed By: #### 2 4321-2, , 2776-05 #### [facility] CLIA [id number] [address] [place] [address] Erythrocyte distribution width (RBC) [Ratio] 13.3 % Normal 11.5-15.0 [facility] Comment on above: Order Comment: Speci men Type: BLOOD SPECIMEN Performed By: #### 2 4321-2, , 2776-05 #### [facility] CLIA [id number] [address] [place] [address] Hematocrit (Bld) [Volume fraction] 36.5 % Low 39.0-51.0 [facility] Comment on above: Order Comment: Speci men Type: BLOOD SPECIMEN Performed By: #### 2 4321-2, , 2776-05 #### [facility] CLIA [id number] [address] [place] [address] Hemoglobin (Bld) [Mass/Vol] 12.7 g/dL Low 13.0-17.0 [facility] Comment on above: Order Comment: Speci men Type: BLOOD SPECIMEN Performed By: #### 2 4320-2, , 2776-05 #### [facility] CLIA [id number] [address] [place] [address] IMMATURE GRAN % 0.7 % Normal [facility] Comment on above: Order Comment: Speci men Type: BLOOD SPECIMEN Performed By: #### 2 4320-2, , 2776-05 #### [facility] CLIA [id number] [address] [place] [address] IMMATURE GRAN ABS 0.12 k/uL High <0.10 [facility] Comment on above: Order Comment: Speci men Type: BLOOD SPECIMEN Performed By: #### 2 4321-2, , 2776-05 #### [facility] CLIA [id number] [address] [place] [address] Lymphocytes (Bld) [#/Vol] 1.28 10*3/uL Normal 1.00-4.00 [facility] Comment on above: Order Comment: Speci men Type: BLOOD SPECIMEN Performed By: #### 2 1-2, , 2776-05 #### [facility] CLIA [id number] [address] [place] [address] Lymphocytes/100 WBC (Bld) 7.0 % Normal [facility] Comment on above: Order Comment: Speci men Type: BLOOD SPECIMEN Performed By: #### 2 1-2, , 2776-05 #### [facility] CLIA [id number] 1 [place] [address] MCH (RBC) [Entitic mass] 31.2 pg Normal 26.0-34.0 [facility] Comment on above: Order Comment: Speci men Type: BLOOD SPECIMEN Performed By: #### 2 4320-2, , 2776-05 #### [facility] CLIA [id number] 1 [place] [address] MCHC (RBC) [Mass/Vol] 34.8 g/dL Normal 30.5-36.0 [facility] Comment on above: Order Comment: Speci men Type: BLOOD SPECIMEN Performed By: #### 2 4320-2, , 2776-05 #### [facility] CLIA [id number] 1 [place] [address] MCV (RBC) [Entitic vol] 89.7 fL Normal 80.0-100.0 [facility] Comment on above: Order Comment: Speci men Type: BLOOD SPECIMEN Performed By: #### 2 4320-2, , 2776-05 #### [facility] CLIA [id number] 1 [place] [address] Monocytes (Bld) [#/Vol] 1.43 10*3/uL High <0.87 [facility] Comment on above: Order Comment: Speci men Type: BLOOD SPECIMEN Performed By: #### 2 1-2, , 2776-05 #### [facility] CLIA [id number] 1 [place] [address] Monocytes/100 WBC (Bld) 7.8 % Normal [facility] Comment on above: Order Comment: Speci men Type: BLOOD SPECIMEN Performed By: #### 2 4320-2, , 2776-05 #### [facility] CLIA [id number] 1 [place] [address] Neutrophils (Bld) [#/Vol] 15.52 10*3/uL High 1.45-7.50 [facility] Comment on above: Order Comment: Speci men Type: BLOOD SPECIMEN Performed By: #### 2 4321-2, , 2776-05 #### [facility] CLIA [id number] 1 [place] [address] Neutrophils/100 WBC (Bld) 84.3 % Normal [facility] Comment on above: Order Comment: Speci men Type: BLOOD SPECIMEN Performed By: #### 2 4321-2, , 2776-05 #### [facility] CLIA [id number] 1 [place] [address] Nucleated RBC (Bld) [#/Vol] 10*3/uL Normal <0.01 [facility] Comment on above: Order Comment: Speci men Type: BLOOD SPECIMEN Performed By: #### 2 4321-2, , 2776-05 #### [facility] CLIA [id number] 1 [place] [address] Nucleated RBC/100 WBC (Bld) [Ratio] 0.0 /[address] [facility] Comment on above: Order Comment: Speci men Type: BLOOD SPECIMEN Performed By: #### 2 4321-2, , 2776-05 #### [facility] CLIA [id number] 1 [place] [address] Platelet mean volume (Bld) [Entitic vol] 9.2 fL Normal 9.0-12.7 [facility] Comment on above: Order Comment: Speci men Type: BLOOD SPECIMEN Performed By: #### 2 4321-2, , 2776-05 #### [facility] CLIA [id number] 1 [place] [address] Platelets (Bld) [#/Vol] 200 10*3/uL Normal 150-400 [facility] Comment on above: Order Comment: Speci men Type: BLOOD SPECIMEN Performed By: #### 2 4321-2, 43147-5, 7-1 #### [facility] CLIA [id number] 1 [place] [address] RBC (Bld) [#/Vol] 4.07 10*6/uL Low 4.20-6.00 [facility] Comment on above: Order Comment: Speci men Type: BLOOD SPECIMEN Performed By: #### 2 4321-2, 57761-9, 2776-1 #### [facility] CLIA [id number] 1 [place] [address] WBC (Bld) [#/Vol] 18.38 10*3/uL High 3.70-11.00 [facility] Comment on above: Order Comment: Speci men Type: BLOOD SPECIMEN Performed By: #### 2 4321-2, 98263-8, 2776-1 #### [facility] CLIA [id number] 1 [place] [address] CNDSon 07-23-2020 [facility] HNO ID: [id number] Author: Desmond Peters DO Service: General Surgery [...] July 23, 2020 TIME: 12:[address] [facility] ANES POSTPROC EVALon 021 ANES POSTPROC EVAL HNO ID: [id number] Author: Fermin Foy Service: Anesthesiology Author Type: Physician Type: Anesthesia Postprocedure Evaluation Filed: 07/22/2020 3:43 PM Note Text: POST ANESTHESIA EVALUATION NOTE : 1935 Procedure Summary Date: 07/22/20 Room / Location: [place] [address] [place] [address] OR Anesthesia Start: 832 Anesthesia Stop: 1212 [...] July 22, 2020 TIME: 3:41 PM CSN: [id number] [facility] ANES PRE-OPon 07-22-2020 ANES PRE-OP HNO ID: [id number] Author: Fermin Foy Service: Anesthesiology Author Type: [...] Coronary atherosclerosis of unspecified type of vessel, [place] or graft (+) HTN (hypertension) (+) Left [...] July 22, 2020 TIME: 7:51 AM CSN: [id number] [facility] BRIEF OP NOTon 07-22-2020 BRIEF OP NOT HNO ID: [id number] Author: Antonette Whipple Service: General Surgery Author [...] BRIEF OPERATIVE / PROCEDURE NOTE LOG ID: [id number] SURGERY/PROCEDURE DATE: 07/22/2020 INCISION/PROCEDURE START TIME: 9:27 AM INCISION CLOSE/PROCEDURE END TIME: SURGEON(S)/PROCEDURALI ST(S) AND EXHIBITS CURATOR(S): Surgeon(s) and Role: * Liliya Mares - Primary * Antonette Whipple - Resident - Assisting * Mark Hutson - Physician Architect In Training Teacher Adult Education: Shelly Fong) [employer]; Fermin Fong) SA [...] 2020 TIME: 11:22 AM PAGER/CONTACT #: Normal [facility] Basic metabolic 2000 panelon 07-22-2020 Anion gap [Moles/Vol] 7 mmol/L Low 9-18 [facility] Comment on above: Order Comment: Speci men Type: BLOOD SPECIMEN Performed By: #### 2 4321-2, , 2776-05 #### [facility] CLIA [id number] 1 [place] [address] Calcium [Mass/Vol] 8.7 mg/dL Normal 8.5-10.2 [facility] Comment on above: Order Comment: Speci men Type: BLOOD SPECIMEN Performed By: #### 2 4321-2, , 2776-05 #### [facility] CLIA [id number] 1 [place] [address] Chloride [Moles/Vol] 106 mmol/L High 97-105 [facility] Comment on above: Order Comment: Speci men Type: BLOOD SPECIMEN Performed By: #### 2 4321-2, , 2776-05 #### [facility] CLIA [id number] 1 [place] [address] CO2 [Moles/Vol] 24 mmol/L Normal 22-30 [facility] Comment on above: Order Comment: Speci men Type: BLOOD SPECIMEN Performed By: #### 2 4321-2, , 2776-05 #### [facility] CLIA [id number] 1 [place] [address] Creatinine [Mass/Vol] 0.95 mg/dL Normal 0.73-1.22 [facility] Comment on above: Order Comment: Speci men Type: BLOOD SPECIMEN Performed By: #### 2 4321-2, , 2776-05 #### [facility] CLIA [id number] 1 [place] [address] GFR/1.73 sq M.predicted MDRD (S/P/Bld) [Vol rate/Area] mL/min/{1.73_m2} Normal [facility] Comment on above: Order Comment: [...] By: #### 2 4321-2, , 2776-05 #### [facility] CLIA [id number] 1 [place] [address] Glucose [Mass/Vol] 128 mg/dL High 74-99 [facility] Comment on above: Order Comment: Speci men Type: BLOOD SPECIMEN Result Comment: The [place] Diabetes [employer] (ADA) provides guidance for cutoff [...] Standards of Medical Care in Diabetes 2016, [place] [employer]. Diabetes Care. 2016.39(Suppl 1). Performed By: #### 2 1-2, , 2776-05 #### [facility] CLIA [id number] 1 [place] [address] Potassium [Moles/Vol] 4.3 mmol/L Normal 3.7-5.1 [facility] Comment on above: Order Comment: Speci men Type: BLOOD SPECIMEN Performed By: #### 2 4320-2, , 2776-05 #### [facility] CLIA [id number] 1 [place] [address] Sodium [Moles/Vol] 137 mmol/L Normal 136-144 [facility] Comment on above: Order Comment: Speci men Type: BLOOD SPECIMEN Performed By: #### 2 4320-2, , 2776-05 #### [facility] CLIA [id number] 1 [place] [address] Urea nitrogen [Mass/Vol] 15 mg/dL Normal - [facility] Comment on above: Order Comment: Speci men Type: BLOOD SPECIMEN Performed By: #### 2 1-2, , 2776-05 #### [facility] CLIA [id number] 1 [place] [address] CBC W Auto Differential pane l (Bld)on 07-22-2020 Basophils (Bld) [#/Vol] 10*3/uL Normal <0.11 [facility] Comment on above: Order Comment: Speci men Type: BLOOD SPECIMEN Performed By: #### 2 1-2, , 2776-05 #### [facility] CLIA [id number] 1 [place] [address] Basophils/100 WBC (Bld) 0.1 % Normal [facility] Comment on above: Order Comment: Speci men Type: BLOOD SPECIMEN Performed By: #### 2 4321-2, , 2776-05 #### [facility] CLIA [id number] [address] [place] [address] Differential cell count method Nom (Bld) Auto Normal [facility] Comment on above: Order Comment: Speci men Type: BLOOD SPECIMEN Performed By: #### 2 4321-2, , 2776-05 #### [facility] CLIA [id number] 1 [place] [address] Eosinophils (Bld) [#/Vol] 10*3/uL Normal <0.46 [facility] Comment on above: Order Comment: Speci men Type: BLOOD SPECIMEN Performed By: #### 2 4320-2, , 2776-05 #### [facility] CLIA [id number] 1 [place] [address] Eosinophils/100 WBC (Bld) 0.0 % Normal [facility] Comment on above: Order Comment: Speci men Type: BLOOD SPECIMEN Performed By: #### 2 4320-2, , 2776-05 #### [facility] CLIA [id number] 1 [place] [address] Erythrocyte distribution width (RBC) [Ratio] 13.2 % Normal 11.5-15.0 [facility] Comment on above: Order Comment: Speci men Type: BLOOD SPECIMEN Performed By: #### 2 1-2, , 2776-05 #### [facility] CLIA [id number] 1 [place] [address] Hematocrit (Bld) [Volume fraction] 39.5 % Normal 39.0-51.0 [facility] Comment on above: Order Comment: Speci men Type: BLOOD SPECIMEN Performed By: #### 2 4321-2, , 2776-05 #### [facility] CLIA [id number] 1 [place] [address] Hemoglobin (Bld) [Mass/Vol] 13.7 g/dL Normal 13.0-17.0 [facility] Comment on above: Order Comment: Speci men Type: BLOOD SPECIMEN Performed By: #### 2 4321-2, , 2776-05 #### [facility] CLIA [id number] [address] [place] [address] IMMATURE GRAN % 0.3 % Normal [facility] Comment on above: Order Comment: Speci men Type: BLOOD SPECIMEN Performed By: #### 2 4321-2, , 2776-05 #### [facility] CLIA [id number] 1 [place] [address] IMMATURE GRAN ABS 0.03 k/uL Normal <0.10 [facility] Comment on above: Order Comment: Speci men Type: BLOOD SPECIMEN Performed By: #### 2 1-2, , 2776-05 #### [facility] CLIA [id number] 1 [place] [address] Lymphocytes (Bld) [#/Vol] 0.71 10*3/uL Low 1.00-4.00 [facility] Comment on above: Order Comment: Speci men Type: BLOOD SPECIMEN Performed By: #### 2 4321-2, , 2776-05 #### [facility] CLIA [id number] 1 [place] [address] Lymphocytes/100 WBC (Bld) 7.9 % Normal [facility] Comment on above: Order Comment: Speci men Type: BLOOD SPECIMEN Performed By: #### 2 4321-2, , 2776-05 #### [facility] CLIA [id number] 1 [place] [address] MCH (RBC) [Entitic mass] 31.6 pg Normal 26.0-34.0 [facility] Comment on above: Order Comment: Speci men Type: BLOOD SPECIMEN Performed By: #### 2 4321-2, , 2777-1 #### [facility] CLIA [id number] [address] [place] [address] MCHC (RBC) [Mass/Vol] 34.7 g/dL Normal 30.5-36.0 [facility] Comment on above: Order Comment: Speci men Type: BLOOD SPECIMEN Performed By: #### 2 4321-2, , 2776-05 #### [facility] CLIA [id number] [address] [place] [address] MCV (RBC) [Entitic vol] 91.2 fL Normal 80.0-100.0 [facility] Comment on above: Order Comment: Speci men Type: BLOOD SPECIMEN Performed By: #### 2 4320-2, , 2776-05 #### [facility] CLIA [id number] 1 [place] [address] Monocytes (Bld) [#/Vol] 0.21 10*3/uL Normal <0.87 [facility] Comment on above: Order Comment: Speci men Type: BLOOD SPECIMEN Performed By: #### 2 4320-2, , 2776-05 #### [facility] CLIA [id number] 1 [place] [address] Monocytes/100 WBC (Bld) 2.3 % Normal [facility] Comment on above: Order Comment: Speci men Type: BLOOD SPECIMEN Performed By: #### 2 4321-2, , 2776-05 #### [facility] CLIA [id number] 1 [place] [address] Neutrophils (Bld) [#/Vol] 8.03 10*3/uL High 1.45-7.50 [facility] Comment on above: Order Comment: Speci men Type: BLOOD SPECIMEN Performed By: #### 2 4321-2, , 2776-05 #### [facility] CLIA [id number] 1 [place] [address] Neutrophils/100 WBC (Bld) 89.4 % Normal [facility] Comment on above: Order Comment: Speci men Type: BLOOD SPECIMEN Performed By: #### 2 4321-2, , 2776-05 #### [facility] CLIA [id number] 1 [place] [address] Nucleated RBC (Bld) [#/Vol] 10*3/uL Normal <0.01 [facility] Comment on above: Order Comment: Speci men Type: BLOOD SPECIMEN Performed By: #### 2 4321-2, , 2776-05 #### [facility] CLIA [id number] [address] [place] [address] Nucleated RBC/100 WBC (Bld) [Ratio] 0.0 /[address] [facility] Comment on above: Order Comment: Speci men Type: BLOOD SPECIMEN Performed By: #### 2 4320-2, , 2776-05 #### [facility] CLIA [id number] [address] [place] [address] Platelet mean volume (Bld) [Entitic vol] 9.0 fL Normal 9.0-12.7 [facility] Comment on above: Order Comment: Speci men Type: BLOOD SPECIMEN Performed By: #### 2 4321-2, , 2776-05 #### [facility] CLIA [id number] 1 [place] [address] Platelets (Bld) [#/Vol] 149 10*3/uL Low 150-400 [facility] Comment on above: Order Comment: Speci men Type: BLOOD SPECIMEN Performed By: #### 2 4321-2, , 2776-05 #### [facility] CLIA [id number] 1 [place] [address] RBC (Bld) [#/Vol] 4.33 10*6/uL Normal 4.20-6.00 [facility] Comment on above: Order Comment: Speci men Type: BLOOD SPECIMEN Performed By: #### 2 4321-2, , 2776-05 #### [facility] CLIA [id number] [address] [place] [address] WBC (Bld) [#/Vol] 8.99 10*3/uL Normal 3.70-11.00 [facility] Comment on above: Order Comment: Speci men Type: BLOOD SPECIMEN Performed By: #### 2 4321-2, 31062-7, 2777-1 #### [facility] CLIA [id number] [address] [place] [id number] OPERATIVE NOon 07-22-2020 OPERATIVE NO HNO ID: [id number] Author: Liliya Mares Service: Vascular Surgery Author Type: Physician Type: Operative Report Filed: 07/23/2020 3:36 PM Note Text: [facility] - Operative Report RANCHO MULLER : 1935 AGE: 84. SEX: M PATIENT TYPE: I HOSP SVC: MIKI LOCATION: [id number] ATTENDING PHYSICIAN: LILIYA MARES CSN NUMBER: [id number] DATE OF SURGERY/PROCEDURE: 07/22/2020 INCISION/PROCEDURE START TIME: 9:27 AM INCISION CLOSE/PROCEDURE END TIME: 11:27 AM PREOPERATIVE DIAGNOSIS: Carotid stenosis. POSTOPERATIVE DIAGNOSIS: Carotid stenosis. SURGEON: Liliya Mares MD EXHIBITS CURATOR: Antonette Whipple MD. SURGERY/PROCEDURE: Left carotid endarterectomy. [...] and external carotid arteries. Arteriotomy was made. Hitchcock shunt was placed within the common carotid [...] full details of findings. Liliya Mares MD LM:[id number] /[id number] Normal [facility] SURGICAL PATHOLOGYon CASE REPORT Normal [facility] Comment on above: Order Comment: Speci men Type: BLOOD SPECIMEN Result Comment: Surg ical Pathology Report Case: [id number] Authorizing Provider: Liliya Mares Collected: 07/22/2020 10:23 AM Ordering Location: [place] [facility] Received: 07/22/2020 12:44 PM Pathologist: Radha Jimenez Specimen: PLAQUE, PLAQUE FROM LEFT CAROTID ARTERY Performed By: #### 2 4321-2, 90346-8, 2777-1 #### [facility] CLIA [id number] [address] [place] [address] [facility] Comment on above: Order Comment: Speci men Type: BLOOD SPECIMEN Result Comment: Subm itted as (plaque), endarterectomy - Portion of arterial intima with calcific atherosclerosis. Performed By: #### 2 4321-2, 80840-4, 2776- #### [facility] CLIA [id number] [address] [place] [address] FINAL PERFORMING LAB Normal [facility] Comment on above: Order Comment: Speci men Type: BLOOD SPECIMEN Result Comment: Diag nostic interpretation performed at [facility], [address] [place] [address] CLIA# [id number] Nut Culler: Mariela Melissa M.D. Performed By: #### 2 4321-2, 61791-0, 2776-05 #### [facility] CLIA [id number] [address] [place] [address] GROSS DESCRIPTION A. PLAQUE. Normal [facility] Comment on above: Order Comment: Speci men Type: BLOOD SPECIMEN Result Comment: Rece ived in formalin labeled plaque is a yellow-gilmore slightly firm tubular pressure measuring 4 x 1.5 x 1 cm. No vessel wall is identified. No thrombi are present. Electronic Coils Supervisor sections are submitted in cassette A1 after full decalcification. OLS/kls Gross examination performed at [facility], [address] [place] [address] CLIA# [id number] Performed By: #### 2 4321-2, 79222-1, 2776-05 #### [facility] CLIA [id number] [address] [place] [address] PreOp/PreProc COVIDon 2020 SARS-CoV-2 (COVID-19) RNA ELVIRA+probe Ql (Unsp spec) UPPER RESPIRATORY TRACT SWAB Normal [facility] Comment on above: Performed By: #### P OCOVD #### [facility] [address] [place], [place] [address] SARS-CoV-2 (COVID-19) RNA ELVIRA+probe Ql (Unsp spec) Negative Normal Negative for COVID19 (SARS CoV2) by PCR. [facility] Comment on above: Result Comment: This test was developed and its performance characteristics determined by [facility] [place]. This test has been authorized by FDA under an Emergency Use Authorization (EUA). This test has been validated in accordance with the FDA's Guidance Document Policy for Diagnostics Testing in Laboratories Certified to Perform High Complexity Testing under CLIA prior to Emergency use Authorization for Coronavirus Disease 2019 during the Public Health Emergency issued on June 29, 2019. Test performed by [facility], [facility] [place], [address] [address]. Performed By: #### P OCOVD #### [facility] [address] [place] [address] Basic metabolic 2000 panelon 07-15-2020 Anion gap [Moles/Vol] 7 mmol/L Low 9-18 [facility] Comment on above: Order Comment: Speci men Type: BLOOD SPECIMEN Performed By: #### 2 4321-2 #### [facility] CLIA [id number] [address] [place] [address] Calcium [Mass/Vol] 9.7 mg/dL Normal 8.5-10.2 [facility] Comment on above: Order Comment: Speci men Type: BLOOD SPECIMEN Performed By: #### 2 4321-2 #### [facility] CLIA [id number] [address] [place] [address] Chloride [Moles/Vol] 100 mmol/L Normal 97-105 [facility] Comment on above: Order Comment: Speci men Type: BLOOD SPECIMEN Performed By: #### 2 4321-2 #### [facility] CLIA [id number] [address] [place] [address] CO2 [Moles/Vol] 29 mmol/L Normal 22-30 [facility] Comment on above: Order Comment: Speci men Type: BLOOD SPECIMEN Performed By: #### 2 4321-2 #### [facility] CLIA [id number] [address] [place] [address] Creatinine [Mass/Vol] 1.15 mg/dL Normal 0.73-1.22 [facility] Comment on above: Order Comment: Speci men Type: BLOOD SPECIMEN Performed By: #### 2 4321-2 #### [facility] CLIA [id number] [address] [place] [address] GFR/1.73 sq M.predicted MDRD (S/P/Bld) [Vol rate/Area] mL/min/{1.73_m2} Normal [facility] Comment on above: Order Comment: [...] GFR. Performed By: #### 2 4321-2 #### [facility] CLIA [id number] [address] [place] [address] Glucose [Mass/Vol] 90 mg/dL Normal 74-99 [facility] Comment on above: Order Comment: Speci men Type: BLOOD SPECIMEN Result Comment: The [place] Diabetes Association (ADA) provides guidance for cutoff [...] Standards of Medical Care in Diabetes 2016, [place] [employer]. Diabetes Care. 2016.39(Suppl 1). Performed By: #### 2 4321-2 #### [facility] CLIA [id number] [address] [place] [address] Potassium [Moles/Vol] 4.7 mmol/L Normal 3.7-5.1 [facility] Comment on above: Order Comment: Speci men Type: BLOOD SPECIMEN Performed By: #### 2 4321-2 #### [facility] CLIA [id number] [address] [place] [address] Sodium [Moles/Vol] 136 mmol/L Normal 136-144 [facility] Comment on above: Order Comment: Speci men Type: BLOOD SPECIMEN Performed By: #### 2 4321-2 #### [facility] CLIA [id number] [address] [place] [address] Urea nitrogen [Mass/Vol] 17 mg/dL Normal 9-24 [facility] Comment on above: Order Comment: Speci men Type: BLOOD SPECIMEN Performed By: #### 2 4321-2 #### [facility] CLIA [id number] [address] [place] [address] CBC panel Auto (Bld)on 07-15 Erythrocyte distribution width (RBC) [Ratio] 13.4 % Normal 11.5-15.0 [facility] Comment on above: Order Comment: Speci men Type: BLOOD SPECIMEN Performed By: #### H MAG1C #### [facility] CLIA [id number] [address] [place] [address] Hematocrit (Bld) [Volume fraction] 42.2 % Normal 39.0-51.0 [facility] Comment on above: Order Comment: Speci men Type: BLOOD SPECIMEN Performed By: #### H MAG1C #### [facility] CLIA [id number] [address] [place] [address] Hemoglobin (Bld) [Mass/Vol] 14.6 g/dL Normal 13.0-17.0 [facility] Comment on above: Order Comment: Speci men Type: BLOOD SPECIMEN Performed By: #### H BURKE #### [facility] CLIA [id number] [address] [place] [address] MCH (RBC) [Entitic mass] 32.1 pg Normal 26.0-34.0 [facility] Comment on above: Order Comment: Speci men Type: BLOOD SPECIMEN Performed By: #### H BA1C #### [facility] CLIA [id number] [address] [place] [address] MCHC (RBC) [Mass/Vol] 34.6 g/dL Normal 30.5-36.0 [facility] Comment on above: Order Comment: Speci men Type: BLOOD SPECIMEN Performed By: #### Domitila BA1C #### [facility] CLIA [id number] [address] [place] [address] MCV (RBC) [Entitic vol] 92.7 fL Normal 80.0-100.0 [facility] Comment on above: Order Comment: Speci men Type: BLOOD SPECIMEN Performed By: #### Domitila TURK #### [facility] CLIA [id number] [address] [place] [address] Nucleated RBC (Bld) [#/Vol] 10*3/uL Normal <0.01 [facility] Comment on above: Order Comment: Speci men Type: BLOOD SPECIMEN Performed By: #### Domitila TURK #### [facility] CLIA [id number] [address] [place] [address] Platelet mean volume (Bld) [Entitic vol] 9.4 fL Normal 9.0-12.7 [facility] Comment on above: Order Comment: Speci men Type: BLOOD SPECIMEN Performed By: #### Domitila TURK #### [facility] CLIA [id number] [address] [place] [address] Platelets (Bld) [#/Vol] 210 10*3/uL Normal 150-400 [facility] Comment on above: Order Comment: Speci men Type: BLOOD SPECIMEN Performed By: #### Domitila [id number] #### [facility] LABORATORY CLIA [id number] [address] [place] [address] RBC (Bld) [#/Vol] 4.55 10*6/uL Normal 4.20-6.00 [facility] Comment on above: Order Comment: Speci men Type: BLOOD SPECIMEN Performed By: #### Domitila BA1C #### [facility] CLIA [id number] [address] [place] [address] WBC (Bld) [#/Vol] 9.77 10*3/uL Normal 3.70-11.00 [facility] Comment on above: Order Comment: Speci men Type: BLOOD SPECIMEN Performed By: #### H BA1C #### [facility] CLIA [id number] [address] [place] [address] HISTORY PHYSICALon HISTORY PHYSICAL HNO ID: [id number] Author: Brandy Szymanski Service: ? Author Type: [...] Coronary Atherosclerosis of Unspecified Type of Vessel, [place] Or Graft Hld (Hyperlipidemia) Depression Esophageal Reflux [...] Coronary atherosclerosis of unspecified type of vessel, [place] or graft - Depression - Displacement of [...] HEART CATHETERIZATION 12/09/2009 Cardiac cath, R heart, [facility] FAMILY HISTORY Problem Relation Age of [...] Drug use: (more content not included)... Normal [facility] PT panel Coag (PPP)on 2020 INR Coag (PPP) [Relative time] 1.0 {INR} Normal 0.9-1.3 [facility] Comment on above: Order Comment: Speci men Type: BLOOD SPECIMEN Result Comment: Anjana min K Antagonist (VKA) Therapeutic Range: INR 2 to 3 (Target INR of 2.5) Note: For patients treated with VKA drugs, such as warfarin, the [place] [employer] 2012 Guideline recommends [...] Chest 2012, 141:7S-47S Raina RA, et al. [facility] 2017, 70: 252-289 Performed By: #### 2 4321-2, 39060-8, 2776- #### [facility] CLIA [id number] [address] [place] [address] PT Coag (PPP) [Time] 10.8 s Normal 9.7-13.0 [facility] Comment on above: Order Comment: Speci men Type: BLOOD SPECIMEN Performed By: #### 2 4321-2, 71459-5, 2777-1 #### [facility] CLIA [id number] [address] [place] [id number] Toi 06-16-2020 TARA Telephone ([employer]fort) PORFIRIORANCHO XIONG ([id number]) 1935 M Date Time Provider Department 06/16/20 LILIYA MARES [facility] During your visit today, we recorded the following information about you: Alexa Schaefer APRN.REHAN SEGAL 06/16/2020 2:30 PM Signed Orders signed. Thank you, Alexa Schaefer APRN.REHAN Paris 06/16/2020 3:49 PM Signed The patient is scheduled for Left Carotid Endarterectomy on 07/22/20 @ 830am with a 630am arrival time. Pretesting is 07/15/20 @ 1pm Main [facility] building - No fasting is required Covid - José Miguel [facility] 07/19/20 @ 10:05am Post op is 08/21/20 @ 1030 am with Alexa Schaefer Mailed 06/16/20 Allergies As of Date: 06/16/2020 Noted Allergy Reaction ASPIRIN 05/17/2005 Comments: GI upset PENICILLINS 05/17/2005 Date Reviewed: 03/03/2020 Reviewed by: Keegan (Rn) JESSENIA Paredes - Fully Assessed Reason for Visit: Schedule Surgery [1330] Primary Visit Diagnosis:Bilateral carotid artery stenosis [I65.23] Order(s):SURGICAL REQUEST - ELECTIVE (11/2019) [5481515] Order #: [id number]: 1 HANDP FOR SURGERY [[id number]] Order #: [id number] PRE-PROCEDURE AND PRE-OPERATIVE COVID [SQPOCOVD] Order #: [id number] FUTURE CBC [SQCBC] Order #: [id number] FUTURE BASIC METABOLIC PNL [SQBMP] Order #: [id number] FUTURE PROTHROMBIN TIME/PT [SQPT] Order #: [id number] FUTURE ECG COMPLETE [ECG01] Order #: [id number] FUTURE Prescriptions as of 06/16/2020 Sig: ASPIRIN [...] Date 06/16/2020 Noted Resolved DISC DISPLACEMENT NOS [PJF5219] 06/12/2005 CORONARY ATHEROSCLER UNSPEC VESSEL [I25.10] 06/12/2005 [...] Status:Closed by ALEXA SCHAEFER CNP on 06/16/20 [facility] CNPNon 04-02-2020 [facility] Telephone (AGVASACC) RANCHO MULLER ([id number]) 1935 M Date Time Provider Department 04/02/20 [...] Date 04/02/2020 Noted Resolved DISC DISPLACEMENT NOS [[id number]] 06/12/2005 CORONARY ATHEROSCLER UNSPEC VESSEL [I25.10] 06/12/2005 [...] Status:Closed by LILIYA MARES MD on 06/17/20 [facility] CASE MANAGEMon 03-03-2020 CASE MANAGEM HNO ID: [id number] Author: MARTIN Bird (Lisw) Service: Social Work Author Type: Ethyl Blender Type: Care Mgt Progress Note Filed: 03/03/2020 [...] 03, 2020 TIME: 12:26 PM PAGER/CONTACT #: [phone] [facility] CNDSon 03-03-2020 CNDS HNO ID: [id number] Author: Joce Zuniga MD Service: Hospital Medicine [...] was admitted from Monday to evening at [facility] after presentation of confusion. 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 He presented to [place] ED after being confused and slurring speech which was resolved by the time of he reached [facility]. Due to symptoms of right arm numbness and continued concern for TIAs he was transferred to [facility]. Neurology and vascular surgery were consulted EEG [...] Appointment When: In 1 week Mariela King [phone] [facility]. [facility] [address] [facility] [address] PCP Requested Referral Follow-Up Appointment When: In 5 days Liliya Mares [phone] [address] [facility] [address] [facility] [address] PCP Requested Referral Follow-Up Appointment When: In 2 weeks Bandar Calhoun MD [phone] [facility] [address] PCP Requested Referral Additional Provider to Provider Information: Treatment Team: Attending Provider: Joce Zuniga MD Consulting: Bandar Calhoun MD Consulting: Yvon Joel Primary Service: Nicholas Jameson [facility] Critical Issues: Continue aspirin and statin Follow up with Neurology Follow up with Vascular surgery for CEA as outpatient LABS AND PROCEDURES PENDING AT DISCHARGE: No pending results. Ruled Out FOLLOW-UP APPOINTMENTS ALREADY SCHEDULED WITH A [facility] PROVIDER: No future appointments. ALLERGIES Allergen Reactions [...] for c (more content not included)... Normal [facility] CONSULT PROGon 03-03-2020 CONSULT PROG HNO ID: [id number] Author: Berlin Fox (Pa) Service: Neurology ICU Author Type: Physician Architect In Training Type: Consult Progress Note Filed: 03/03/2020 8:40 AM Note Text: Neurology progress note: [facility] surgery planning for outpatient follow up Cont ASA and statin Follow up with neurology, information in d/c instructions and lady request sent Stroke warning symptoms given and when to get to ED. No further neurology work up okay to d/c when medically stable Will sign off. BERLIN FOX PA-C March 03, 2020 8:[address] [facility] NURSING PROGon 03-03-2020 NURSING PROG HNO ID: [id number] Author: Janny Aviles RN Service: Nursing Author Type: Registered Nurse Type: Nursing Progress Note Filed: 03/03/2020 11:59 AM Note Text: Discharge instructions reviewed with patient and . No further questions at this time. Stroke booklet given and reviewed with patient and . Normal [facility] THERAPY NTon 03-03-2020 THERAPY NT HNO ID: [id number] Author: Shirley Marie Service: Physical Therapy Author Type: Physical Therapist Type: Therapy (PT/OT/Speech/Resp) Filed: 03/03/2020 11:53 AM Note Text: Physical Therapy Evaluation SERVICE DATE: 03/03/2020 SERVICE TIME: 1035 to 1100 ROOM: [id number] Recommended Discharge Disposition: Home This patient is [...] ness on feet Interventions Provided: Evaluation;Gait Training (99486) $ Evaluation-Moderate (98051) Billed Units: 1 unit Gait Training (26866) Treatment Minutes: 10 $ Gait Training (33666) Billed Units: 1 unit Educated on gaze [...] DATE: March 03, 2020 TIME: 11:52 AM [facility] ALLIED HEALTHon 03-02-2020 ALLIED HEALTH HNO ID: [id number] Author: Dyan Perrin (Rt) Service: Radiology Author Type: Adjunct Communications Faculty Member Type: Allied Health Filed: 03/02/2020 1:57 PM [...] RT Marychuy March 02, 2020 1:57 PM [facility] CASE MANAGEMon 03-02-2020 CASE MANAGEM HNO ID: [id number] Author: MARTIN Bird (Lisw) Service: Social Work Author Type: Ethyl Blender Type: Care Mgt Progress Note Filed: 03/02/2020 4:16 PM Note Text: CARE MANAGEMENT PROGRESS NOTE SERVICE DATE: 03/02/2020 SERVICE TIME: 4:15 PM LOS: 3 days IMM Follow Up Copy Given: Yes Copy given to:: Patient Method: In Person IM letter given to patient SIGNATURE: MARTIN Bird PATIENT NAME: Rancho Muller DATE: March 02, 2020 TIME: 4:15 PM PAGER/CONTACT #: [phone] [facility] CASE MGT INIT ASSESon 2019 CASE MGT INIT ASSES HNO ID: [id number] Author: MARTIN Bird (Lisw) Service: Social Work Author Type: Ethyl Blender Type: Care Mgt Initial Assessment Filed: 03/02/2020 12:49 PM Note Text: CARE MANAGEMENT: ASSESSMENT AND DISCHARGE PLAN SERVICE DATE: March 02, 2020 SERVICE TIME: 12:44 PM PRIMARY CARE PHYSICIAN: Mariela King MD ADMISSION STATUS: Inpatient Needs Prior to Discharge: OT/PT Evaluation;Patient/Fam nick MEDICAL: [employer] MEDICARE PPO Patient/Electronic Coils Supervisor Stated Goals: To have reduction in symptoms Health Insurance: [employer] Issues Impacting Discharge Plan: Newly diagnosed Newly Diagnosed: Aphasia Chronic: S/P CABG 2000,R ICA stenosis Last Discharge Date: 06/17/05 Is this Within the Past 30 days? Last discharge within 30 days: No Advance Directive: Current Advance Directive: Health Care Power of Doughnut Dough Mixer In Chart: Yes Up To Date and [...] Cane Has the Patient Been in a Retirement Facility in the Past 30 days?: No SOCIAL: Living Arrangements: Home Lives With: Spouse Financial Resources: Retired Primary Contact: Extended Emergency Contact Information Primary Emergency Contact: LEA MULLER Address: [address] [place] [address] Mobile Relation: Spouse Supportive Patient Contact:: Yes [...] Completely I feel financially burdened by my ynv-kn-dbxdxm expenses for my prescription medication:: 0 - Disagree Completely Risk Score: 0 Patient is categorized as: Low risk < 2 Are you interested in bedside delivery of your medications? No Is Patient Psychosocially Complex?: No ASSESSMENT AND PLAN: Medical Needs: Medical Needs: Two or more chronic diseases Psychosocial Needs: Psychosocial Needs: None FREEDOM OF CHOICE EXPLAINED: [place] of Choice Given: No Reason Not Given: Unable to complete with this assessment - revisit POTENTIAL TRANSITION PLANS Home;Outpatient Therapy Met with patient and his .Patient lives with and uses a cane. Patient has been independent with ADL's prior to admission. Pharmacies at [facility] in [place] if urgent but tries to use [facility] .Await PT/OT.berta. Plan is home by car with when medically stable. SIGNATURE: MARTIN Bird PATIENT NAME: Rancho Muller DATE: March 02, 2020 TIME: 12:44 PM PAGER/CONTACT #: [phone] [facility] CONSULT PROGon 03-02-2020 CONSULT PROG HNO ID: [id number] Author: Berlin Ram) Maciel Service: Neurology ICU Author Type: Physician Architect In Training Type: Consult Progress Note Filed: 03/02/2020 4:23 [...] touch COORDINATION: Finger-to- nose-finger intact bilaterally and Kqvt-gw-nqqu intact bilaterally GAIT: Not assessed DATA: Diagnostic [...] Units SUB (more content not included)... Normal [facility] MRI BRAIN WO IVCONon 020 MRI BRAIN [...] be excluded in the appropriate clinical setting. Noc Analyst: PSCB Transcribe Date/Time: Mar 02 2020 2:45P Dictated by : KINGSLEY SALDANA MD This examination was interpreted and the report reviewed and electronically signed by: KINGSLEY SALDANA MD on Mar 02 2020 2:57PM EST Normal [facility] Basic metabolic 2000 panelon 02-29-2020 Anion gap [Moles/Vol] 9 mmol/L Normal 9-18 [facility] Comment on above: Order Comment: Speci men Type: BLOOD SPECIMEN Performed By: #### 2 4321-2, , 2776-05 #### [facility] CLIA [id number] 1 [place] [address] Calcium [Mass/Vol] 9.4 mg/dL Normal 8.5-10.2 [facility] Comment on above: Order Comment: Speci men Type: BLOOD SPECIMEN Performed By: #### 2 4321-2, , 2776-05 #### [facility] CLIA [id number] [address] [place] [address] Chloride [Moles/Vol] 102 mmol/L Normal 97-105 [facility] Comment on above: Order Comment: Speci men Type: BLOOD SPECIMEN Performed By: #### 2 1-2, , 2776-05 #### [facility] CLIA [id number] 1 [place] [address] CO2 [Moles/Vol] 26 mmol/L Normal 22-30 [facility] Comment on above: Order Comment: Speci men Type: BLOOD SPECIMEN Performed By: #### 2 1-2, , 2776-05 #### [facility] CLIA [id number] 1 [place] [address] Creatinine [Mass/Vol] 1.11 mg/dL Normal 0.73-1.22 [facility] Comment on above: Order Comment: Speci men Type: BLOOD SPECIMEN Performed By: #### 2 4321-2, , 2776-05 #### [facility] CLIA [id number] [address] [place] [address] GFR/1.73 sq M.predicted MDRD (S/P/Bld) [Vol rate/Area] mL/min/{1.73_m2} Normal [facility] Comment on above: Order Comment: [...] By: #### 2 4320-2, , 2776-05 #### [facility] CLIA [id number] [address] [place] [address] Glucose [Mass/Vol] 99 mg/dL Normal 74-99 [facility] Comment on above: Order Comment: Speci men Type: BLOOD SPECIMEN Result Comment: The [place] Diabetes Association (ADA) provides guidance for cutoff [...] Standards of Medical Care in Diabetes 2016, [place] Diabetes Association. Diabetes Care. 2016.39(Suppl 1). Performed By: #### 2 4320-2, , 2776-05 #### [facility] CLIA [id number] [address] [place] [address] Potassium [Moles/Vol] 4.4 mmol/L Normal 3.7-5.1 [facility] Comment on above: Order Comment: Speci men Type: BLOOD SPECIMEN Performed By: #### 2 4320-2, , 2776-05 #### [facility] CLIA [id number] [address] [place] [address] Sodium [Moles/Vol] 137 mmol/L Normal 136-144 [facility] Comment on above: Order Comment: Speci men Type: BLOOD SPECIMEN Performed By: #### 2 4320-2, , 2776-05 #### [facility] CLIA [id number] [address] [place] [address] Urea nitrogen [Mass/Vol] 16 mg/dL Normal 9-24 [facility] Comment on above: Order Comment: Speci men Type: BLOOD SPECIMEN Performed By: #### 2 4321-2, , 2776-05 #### [facility] CLIA [id number] [address] [place] [address] CBC panel Auto (Bld)on 02-28 Erythrocyte distribution width (RBC) [Ratio] 14.1 % Normal 11.5-15.0 [facility] Comment on above: Order Comment: Speci men Type: BLOOD SPECIMEN Performed By: #### 2 432-2, , 2776-05 #### [facility] CLIA [id number] [address] [place] [address] Hematocrit (Bld) [Volume fraction] 43.5 % Normal 39.0-51.0 [facility] Comment on above: Order Comment: Speci men Type: BLOOD SPECIMEN Performed By: #### 2 4321-2, , 2776-05 #### [facility] CLIA [id number] [address] [place] [address] Hemoglobin (Bld) [Mass/Vol] 14.9 g/dL Normal 13.0-17.0 [facility] Comment on above: Order Comment: Speci men Type: BLOOD SPECIMEN Performed By: #### 2 4321-2, , 2776-05 #### [facility] CLIA [id number] [address] [place] [address] MCH (RBC) [Entitic mass] 31.8 pg Normal 26.0-34.0 [facility] Comment on above: Order Comment: Speci men Type: BLOOD SPECIMEN Performed By: #### 2 4321-2, , 2776-05 #### [facility] CLIA [id number] [address] [place] [address] MCHC (RBC) [Mass/Vol] 34.3 g/dL Normal 30.5-36.0 [facility] Comment on above: Order Comment: Speci men Type: BLOOD SPECIMEN Performed By: #### 2 4321-2, , 2776-05 #### [facility] CLIA [id number] [address] [place] [address] MCV (RBC) [Entitic vol] 92.8 fL Normal 80.0-100.0 [facility] Comment on above: Order Comment: Speci men Type: BLOOD SPECIMEN Performed By: #### 2 1-2, , 2776-05 #### [facility] CLIA [id number] [address] [place] [address] Nucleated RBC (Bld) [#/Vol] 10*3/uL Normal <0.01 [facility] Comment on above: Order Comment: Speci men Type: BLOOD SPECIMEN Performed By: #### 2 4320-2, , 2776-05 #### [facility] CLIA [id number] [address] [place] [address] Platelet mean volume (Bld) [Entitic vol] 9.3 fL Normal 9.0-12.7 [facility] Comment on above: Order Comment: Speci men Type: BLOOD SPECIMEN Performed By: #### 2 1-2, , 2776-05 #### [facility] CLIA [id number] [address] [place] [address] Platelets (Bld) [#/Vol] 243 10*3/uL Normal 150-400 [facility] Comment on above: Order Comment: Speci men Type: BLOOD SPECIMEN Performed By: #### 2 4321-2, , 2776-05 #### [facility] CLIA [id number] [address] [place] [address] RBC (Bld) [#/Vol] 4.69 10*6/uL Normal 4.20-6.00 [facility] Comment on above: Order Comment: Speci men Type: BLOOD SPECIMEN Performed By: #### 2 4321-2, , 2776-05 #### [facility] CLIA [id number] [address] [place] [address] WBC (Bld) [#/Vol] 11.23 10*3/uL High 3.70-11.00 [facility] Comment on above: Order Comment: Speci men Type: BLOOD SPECIMEN Performed By: #### 2 4321-2, 64421-6, 2777- #### [facility] CLIA [id number] [address] [place] [address] CONSULTon 02-29-2020 CONSULT HNO ID: [id number] Author: Bandar Calhoun MD Service: Neurology Stroke Author Type: Physician Type: Consults Filed: 02/29/2020 11:43 AM Note Text: NEURO STROKE INITIAL CONSULT SERVICE DATE: 02/29/2020 SERVICE TIME: 1000 REQUESTING PHYSICIAN: Carina PCP: Mariela King MD REASON FOR STROKE EVALUATION: recurrent aphasia Subjective HPI: This is an 84 year old RH male transferred from [facility] due to symptoms of recurrent aphasia. He has a history of CAD, s/p CABG in 2000. 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 Pre-admission Was patient on antithrombotic agent prior to admission: Antiplatelet Antiplatelet: Aspirin Was patient on lipid lowering agent prior to admission: Statin Pre-morbid mRS: Premorbid Modified [place] Score: 0 - No symptoms at all PAST MEDICAL HISTORY Diagnosis Date - Cardiomegaly - Chronic depressive personality disorder - COPD (chronic obstructive pulmonary disease) (HCC) - Coronary atherosclerosis of unspecified type of vessel, [place] or graft - Depression - Displacement of [...] HEART CATHETERIZATION 12-09-2009 Cardiac cath, R heart, [facility] Social History Tobacco Use - Smoking [...] active a (more content not included)... Normal [facility] HGB A1Con 02-29-2020 Average glucose Estimated from glycated hemoglobin (Bld) [Mass/Vol] 100 mg/dL Normal [facility] Comment on above: Order Comment: Speci men Type: BLOOD SPECIMEN Result Comment: eAG: (Estimated average glucose) is a calculated value from HgbA1c and is uniforms sales representative of the average blood glucose level in the last 2-3 month period. Performed By: #### H BA1C #### [facility] CLIA [id number] [address] [place] [address] HbA1c (Bld) [Mass fraction] 5.1 % Normal 4.3-5.6 [facility] Comment on above: Order Comment: Speci men Type: BLOOD SPECIMEN Performed By: #### H BA1C #### [facility] CLIA [id number] [address] [place] [address] LIPID PANEL BASICon 02-29-20 20 Cholesterol [Mass/Vol] 121 mg/dL Normal <200 [facility] Comment on above: Order Comment: Speci men Type: BLOOD SPECIMEN Result Comment: <200 mg/dL, Desirable 200-239 mg/dL, Borderline high >239 mg/dL, High Performed By: #### 2 4321-2, , 2776-05 #### [facility] CLIA [id number] [address] [place] [address] Cholesterol in HDL [Mass/Vol] 39 mg/dL Low >39 [facility] Comment on above: Order Comment: Speci men Type: BLOOD SPECIMEN Result Comment: 40-5 9 mg/dL, Acceptable >59 mg/dL, High: Negative risk factor for coronary heart disease <40 mg/dL, Low: Positive risk factor for coronary heart disease Performed By: #### 2 4321-2, , 2776-05 #### [facility] CLIA [id number] [address] [place] [address] Cholesterol in LDL [Mass/Vol] 47 mg/dL Normal <100 [facility] Comment on above: Order Comment: Speci men Type: BLOOD SPECIMEN Result Comment: <100 mg/dL, Optimal 100-129 mg/dL, Near optimal/above optimal 130-159 mg/dL, Borderline high 160-189 mg/dL, High >189 mg/dL, Very high Secondary prevention optimal LDL Cholesterol levels are recommended to be < 70 mg/dL Performed By: #### 2 4321-2, , 2776-05 #### [facility] CLIA [id number] [address] [place] [address] Cholesterol in LDL/Cholesterol in HDL [Mass ratio] 1.21 {ratio} Normal <2.54 [facility] Comment on above: Order Comment: Speci men Type: BLOOD SPECIMEN Result Comment: Refe rence: 1. National Cholesterol Education Program ATP III Guideline At-A-Glance Quick Desk Reference: National Heart, Lung, and Blood [place]. National Institutes of Health. 2001: NIH Publication No. 01-3305. 2. An International Atherosclerosis Society position paper: global recommendations for the management of dyslipidemia: executive summary, Atherosclerosis. 2014: 232(2):410-413. Performed By: #### 2 4321-2, , 2776-05 #### [facility] CLIA [id number] [address] [place] [address] Cholesterol in VLDL [Mass/Vol] 35 mg/dL High <30 [facility] Comment on above: Order Comment: Speci men Type: BLOOD SPECIMEN Performed By: #### 2 1-2, , 2776-05 #### [facility] CLIA [id number] [address] [place] [address] Cholesterol non HDL [Mass/Vol] 82 mg/dL Normal <130 [facility] Comment on above: Order Comment: Speci men Type: BLOOD SPECIMEN Result Comment: <130 mg/dL, Optimal 130-159 mg/dL, Near optimal/above optimal 160-189 mg/dL, Borderline high 190-219 mg/dL, High >219 mg/dL, Very high Secondary prevention optimal non HDL Cholesterol levels are recommended to be <100 mg/dL Performed By: #### 2 1-2, , 2776-05 #### [facility] CLIA [id number] [address] [place] [address] Cholesterol.total/Cho lesterol in HDL [Mass ratio] 3.10 {ratio} Normal <5.10 [facility] Comment on above: Order Comment: Speci men Type: BLOOD SPECIMEN Performed By: #### 2 4320-2, , 2776-05 #### [facility] CLIA [id number] [address] [place] [address] FASTING TIME [address] [facility] Comment on above: Order Comment: Speci men Type: BLOOD SPECIMEN Performed By: #### 2 1-2, , 2776-05 #### [facility] CLIA [id number] [address] [place] [address] Triglyceride [Mass/Vol] 177 mg/dL High <150 [facility] Comment on above: Order Comment: Speci men Type: BLOOD SPECIMEN Result Comment: <150 mg/dL, Normal 150-199 mg/dL, Borderline high 200-499 mg/dL, High >499 mg/dL, Very high Performed By: #### 2 4321-2, , 2776-05 #### [facility] CLIA [id number] [address] [place] [address] TSH SerPl-aCncon 02-29-2020 TSH Qn 1.040 m[IU]/L Normal 0.270-4.200 [facility] Comment on above: Order Comment: Speci men Type: BLOOD SPECIMEN Performed By: #### 2 4321-2, , 2776-05 #### [facility] CLIA [id number] [address] [place] [address] Urinalysis complete panel (U )on 02-29-2020 Bacteria LM.HPF (Urine sed) [#/Area] None Seen Normal None Seen [facility] Comment on above: Order Comment: Speci men Type: BLOOD SPECIMEN Performed By: #### 2 4321-2, , 2776-05 #### [facility] CLIA [id number] [address] [place] [address] Bilirubin Ql (U) Negative Normal Negative [facility] Comment on above: Order Comment: Speci men Type: BLOOD SPECIMEN Performed By: #### 2 4321-2, , 2776-05 #### [facility] CLIA [id number] [address] [place] [address] Clarity (Unsp spec) Clear Normal Clear [facility] Comment on above: Order Comment: Speci men Type: BLOOD SPECIMEN Performed By: #### 2 4321-2, , 2776-05 #### [facility] CLIA [id number] 1 [place] [address] Color (U) Yellow Normal Yellow [facility] Comment on above: Order Comment: Speci men Type: BLOOD SPECIMEN Performed By: #### 2 4321-2, , 2776-05 #### [facility] CLIA [id number] 1 [place] [address] Epithelial cells LM.HPF (Urine sed) [#/Area] 0.3 /[HPF] Normal [facility] Comment on above: Order Comment: Speci men Type: BLOOD SPECIMEN Performed By: #### 2 4321-2, , 2776-05 #### [facility] CLIA [id number] [address] [place] [address] Glucose Test strip (U) [Mass/Vol] Negative Normal Negative [facility] Comment on above: Order Comment: Speci men Type: BLOOD SPECIMEN Performed By: #### 2 4321-2, , 2776-05 #### [facility] CLIA [id number] [address] [place] [address] Hemoglobin Ql (U) Negative Normal Negative [facility] Comment on above: Order Comment: Speci men Type: BLOOD SPECIMEN Performed By: #### 2 4321-2, , 2776-05 #### [facility] CLIA [id number] [address] [place] [address] Hyaline casts (Urine sed) [#/Area] 0 /[LPF] Normal 0 /LPF [facility] Comment on above: Order Comment: Speci men Type: BLOOD SPECIMEN Performed By: #### 2 4321-2, , 2776-05 #### [facility] CLIA [id number] [address] [place] [address] Ketones Ql (U) Negative Normal Negative [facility] Comment on above: Order Comment: Speci men Type: BLOOD SPECIMEN Performed By: #### 2 4321-2, , 2776-05 #### [facility] CLIA [id number] [address] [place] [address] Leukocyte esterase Test strip Ql (U) Negative Normal Negative [facility] Comment on above: Order Comment: Speci men Type: BLOOD SPECIMEN Performed By: #### 2 4321-2, , 2776-05 #### [facility] CLIA [id number] [address] [place] [address] Nitrite Ql (U) Negative Normal Negative [facility] Comment on above: Order Comment: Speci men Type: BLOOD SPECIMEN Performed By: #### 2 4321-2, , 2776-05 #### [facility] CLIA [id number] [address] [place] [address] pH (U) 5.5 [pH] Normal 5.0-8.0 [facility] Comment on above: Order Comment: Speci men Type: BLOOD SPECIMEN Performed By: #### 2 4321-2, , 2776-05 #### [facility] CLIA [id number] [address] [place] [address] Protein (U) [Mass/Vol] Negative Normal Negative [facility] Comment on above: Order Comment: Speci men Type: BLOOD SPECIMEN Performed By: #### 2 1-2, , 2776-05 #### [facility] CLIA [id number] 1 [place] [address] RBC LM.HPF (Urine sed) [#/Area] 0-3 /HPF Normal 0-3 /HPF [facility] Comment on above: Order Comment: Speci men Type: BLOOD SPECIMEN Performed By: #### 2 1-2, , 2776-05 #### [facility] CLIA [id number] 1 [place] [address] Specific gravity (U) [Rel density] 1.043 High 1.005-1.030 [facility] Comment on above: Order Comment: Speci men Type: BLOOD SPECIMEN Performed By: #### 2 1-2, , 2776-05 #### [facility] CLIA [id number] [address] [place] [address] Urobilinogen Ql (U) 0.2 EU/dL Normal 0.2-1.0 EU/dL [facility] Comment on above: Order Comment: Speci men Type: BLOOD SPECIMEN Performed By: #### 2 4321-2, , 2776-05 #### [facility] CLIA [id number] [address] [place] [address] WBC LM.HPF (Urine sed) [#/Area] 0-5 /HPF Normal 0-5 /HPF [facility] Comment on above: Order Comment: Speci men Type: BLOOD SPECIMEN Performed By: #### 2 1-2, , 2776-05 #### [facility] CLIA [id number] [address] [place] [address] VITAMIN B12 BLOODon 02-29-20 20 Cobalamin (Vitamin B12) [Mass/Vol] 305 pg/mL Normal 232-1,245 [facility] Comment on above: Order Comment: Speci men Type: BLOOD SPECIMEN Performed By: #### 2 4321-2, 41126-5, 2777-1 #### [facility] CLIA [id number] [address] [place] [address] CONSULTon 02-28-2020 CONSULT HNO ID: [id number] Author: Eber Rios DO Service: Vascular Surgery [...] in 2000. He states he admitted at [facility] Monday and Monday although the hospitalist note [...] Coronary atherosclerosis of unspecified type of vessel, [place] or graft - Depression - Displacement of intervertebral disc, site unspecified, without myelopathy - Esophageal reflux - Lumbosacral spondylosis without myelopathy - Other and unspecified hyperlipidemia - PAD (peripheral artery disease) ([facility]) - Right bundle branch block [...] ORAL DAILY (more content not included)... Normal [facility] HISTORY PHYSICALon 0 HISTORY PHYSICAL HNO ID: [id number] Author: Regla Lyles Service: Hospital Medicine Author [...] NIGHT AND WEEKEND COVERAGE: After 7pm call #[phone] Chief complaint: Aphasia, right hand numbness HPI: This is a 84 year old male with PMHx of COPD, HTN, and HLD. He was admitted from Monday to evening at [facility] after similar presentation of confusion. 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 He presented to [place] ED after being confused and slurring speech this morning which has now resolved. Due to symptoms of right arm numbness and continued concern for TIAs he was transferred to [facility]. On my exam he states he has [...] disorder - COPD (chronic obstructive pulmonary disease) ([facility]) - Coronary atherosclerosis of unspecified type of vessel, [place] or graft - Depression - Displacement of intervertebral disc, site unspecified, without myelopathy - Esophageal reflux - Lumbosacral spondylosis without myelopathy - Other and unspecified hyperlipidemia - PAD (peripheral artery disease) ([facility]) - Right bundle branch block [...] HEART CATHETERIZATION 12-09-2009 Cardiac cath, R heart, [facility] FAMILY HISTORY Problem Relation Age of [...] thyroid symmetric (more content not included)... Normal [facility] NURSING PROGon 02-28-2020 NURSING PROG HNO ID: [id number] Author: Adriana Pedro (Rn) JESSENIA Pat Service: ? Author Type: Registered Nurse Type: Nursing Progress Note Filed: 02/28/2020 4:33 PM Note Text: Nursing Progress Note Patient Name: Rancho Muller Patient Location: [id number]/[id number] __ Daily Note: 1606: SOUND PAGED REGARDING ADMISSION ORDERS. 1632: Spoke to Regla from [facility]. Stated would put in orders. This note was completed by: Adriana Pat, RN [facility] Office Visiton 01-09-2017 Dietary management education, guidance, and counseling (procedure) yes Invalid Interpretation Code [facility] Work Phone: [phone] Documentation of current medications (procedure) Done Invalid Interpretation Code [facility] Work Phone: [phone] Fall risk assessment No [facility] Work Phone: [phone] Protein mass conc Done [facility] Work Phone: [phone] Tobacco smoking status NHIS Former smoker [facility] Work Phone: [phone] Tobacco use [facility] Former smoker Invalid Interpretation Code [facility] Work Phone: [phone] Lab Report: Lipid Profileon 04-07-2016 Cholesterol 151 mg/dL 200 [facility] Work Phone: [phone] HDL Cholesterol 40 mg/dL [facility] Work Phone: [phone] LDL Cholesterol 77 mg/dL 0-130 [facility] Work Phone: [phone] Triglyceride 169 mg/dL [facility] Work Phone: [phone] very low density lipoproteins 34 mg/dL 5-40 [facility] Work Phone: [phone] Lab Report: Liver Profileon 04-07-2016 Alanine aminotransferase (ALT) 23 U/L 12-78 [facility] Work Phone: [phone] Albumin 3.4 g/dL 3.4-5.0 [facility] Work Phone: [phone] Alkaline phosphatase (ALP) 65 U/L Invalid Interpretation Code 45-117 [facility] Work Phone: [phone] ALP enzyme act/vol (Bld) 65 U/L 45-117 [facility] Work Phone: [phone] Aspartate aminotransferase (AST) 51 U/L High 15-37 [facility] Work Phone: [phone] Bilirubin (direct) 0.19 mg/dL 0.00-0.30 [facility] Work Phone: [phone] Bilirubin (total) 1.00 mg/dL 0.20-1.00 [facility] Work Phone: [phone] Globulin 3.5 g/dL Invalid Interpretation Code 2.3-3.5 [facility] Work Phone: [phone] Globulin mass conc (S) 3.5 g/dL 2.3-3.5 [facility] Work Phone: [phone] Protein 6.9 g/dL 6.4-8.2 [facility] Work Phone: [phone] Clinical Lists Updateon 07-30 Left ventricular Ejection fraction 65 % [facility] Work Phone: [phone]) Lab Report: Immunoglobulins G/A/M/Shamar 06-27-2015 IgA 241 mg/dL 91-414 [facility] Work Phone: [phone] IgG 1009 mg/dL 700-1600 [facility] Work Phone: [phone] IgM 178 mg/dL 40-230 [facility] Work Phone: [phone] IMMUNO E 2173 24 [iU]/mL 0-100 [facility] Work Phone: [phone] immunoglobulin E, serum, quantitative 24 [iU]/mL Invalid Interpretation Code 0-100 [facility] Work Phone: [phone] Clinical Lists Update: Prelo application support 05-21-2015 BUN/Creatinine Ratio 10.6 mg/mg [facility] Work Phone: [phone] Calcium 8.8 mg/dL [facility] Work Phone: [phone] Chloride 101 mmol/L [facility] Work Phone: [phone] CO2 32.0 mmol/L Invalid Interpretation Code [facility] Work Phone: [phone] CO2 ppres (BldV) 32.0 mmol/L [facility] Work Phone: [phone] Creatinine 1.23 mg/dL [facility] Work Phone: [phone] Hematocrit (HCT) 42.6 % Invalid Interpretation Code [facility] Work Phone: [phone] Hematocrit Volume Fraction (Bld) 42.6 % [facility] Work Phone: [phone] Hemoglobin (HGB) 14.2 g/dL [facility] Work Phone: [phone] Platelets 183 10*3/mm3 Invalid Interpretation Code [facility] Work Phone: [phone] Platelets #/vol (Bld) 183 10*3/mm3 [facility] Work Phone: [phone] Potassium 3.9 mmol/L [facility] Work Phone: [phone] Sodium 139 mmol/L [facility] Work Phone: [phone] Urea nitrogen 13 mg/dL [facility] Work Phone: [phone] WBC #/vol (Bld) 9.7 10*3/uL [email or web address] Work Phone: [phone] WBC (Leukocytes) 9.7 10*3/uL Invalid Interpretation Code [email or web address] Work Phone: [phone]) Office Visiton 05-26-2014 cardiac risk group C [facility] Work Phone: [phone] General cardiovascular disease 10Y risk [#] [place]D'Agost[place] N/A [email or web address] Work Phone: [phone]) Lab Report: Liver Profileon 05-20-2014 ALK P 68 U/L 50-136 [email or web address] Work Phone: [phone] GE use only - for [employer] import when terms are not otherwise specified 68 U/L Invalid Interpretation Code 50-136 [email or web address] Work Phone: [phone] Office Visiton 05-08-2014 BNP 240 pg/mL High [email or web address] Work Phone: [phone] External Other: Preferred Me thod of Contacton 11-24-2013 methcontact phone [facility] Phone: [phone] Patient's prefered method of contact phone Invalid Interpretation Code [facility] Phone: [phone]) Clinical Lists Update: Prelo application support 12-21-2012 Albumin/Globulin Ratio 1.0 {ratio} [email or web address] Work Phone: [phone] Anion gap 7 mmol/L Invalid Interpretation Code [facility] Work Phone: [phone] Anion gap molar conc 7 mmol/L [facility] Work Phone: [phone] basophils as percent of blood leukocytes, manual count 0.3 % [facility] Work Phone: [phone] eosinophils as percent of blood leukocytes, manual count 0.9 % [facility] Work Phone: [phone] Erythrocyte distribution width Ratio (RBC) 13.8 % [facility] Work Phone: [phone] Erythrocytes (RBC) 4.37 10*6/uL [facility] Work Phone: [phone] Globulin 3.5 g/dL Invalid Interpretation Code [facility] Work Phone: [phone] Globulin mass conc (S) 3.5 g/dL [facility] Work Phone: [phone] Glucose 75 mg/dL Invalid Interpretation Code [facility] Work Phone: [phone] Glucose mass conc 75 mg/dL [facility] Work Phone: [phone] Lymphocytes/100 leukocytes 17.4 % Low [facility] Work Phone: [phone] Lymphocytes/100 WBC (Bld) 17.4 % Low [facility] Work Phone: [phone] MCH 31.8 pg Invalid Interpretation Code [facility] Work Phone: [phone] MCH Entitic mass (RBC) 31.8 pg [facility] Work Phone: [phone] MCHC 34.8 g/dL Invalid Interpretation Code [facility] Work Phone: [phone] MCHC mass conc (RBC) 34.8 g/dL [facility] Work Phone: [phone] MCV 91.5 fL Invalid Interpretation Code [facility] Work Phone: [phone] MCV Entitic volume (RBC) 91.5 fL [facility] Work Phone: [phone] Monocytes/100 leukocytes 13.2 % High [facility] Work Phone: [phone] Monocytes/100 WBC (Bld) 13.2 % High [facility] Work Phone: [phone] neutrophils, band form as percent of blood leukocytes, manual count 67.8 % [facility] Work Phone: [phone] Platelet mean volume Entitic volume (Bld) 8.9 fL [facility] Work Phone: [phone] 00 PMV by Estrella 8.9 fL Invalid Interpretation Code [facility] Work Phone: [phone] RBC #/vol (Bld) 4.37 10*6/uL [facility] Work Phone: [phone] RDW-CA 13.8 % Invalid Interpretation Code [facility] Work Phone: Replaced Document: Kassy Young 08-15-2012 BUN (urea nitrogen) Sinus Bradycardia -Right bundle branch block . ABNORMAL Invalid Interpretation Code [email or web address] Work Phone: EKG QRS axis 27 deg [email or web address] Work Phone: P [place] 64 deg [facility] Work Phone: P wave axis, electrocardiogram 64 deg Invalid Interpretation Code [email or web address] Work Phone: AK Interval 158 ms [email or web address] Work Phone: AK interval, electrocardiogram 158 ms Invalid Interpretation Code [email or web address] Work Phone: Pulse (Heart Rate) 50 /min Invalid Interpretation Code [email or web address] Work Phone: Pulse (Heart Rate) 416 ms Invalid Interpretation Code [email or web address] Work Phone: QRS axis, electrocardiogram 27 deg Invalid Interpretation Code [email or web address] Work Phone: QRS Duration 164 ms [email or web address] Work Phone: QRS duration, electrocardiogram 164 ms Invalid Interpretation Code [email or web address] Work Phone: QT Interval new path ms [email or web address] Work Phone: QT interval, electrocardiogram new path ms Invalid Interpretation Code [email or web address] Work Phone: T [place] 50 deg [email or web address] Work Phone: T wave axis, electrocardiogram 50 deg Invalid Interpretation Code [email or web address] Work Phone: Urea nitrogen mass conc Sinus Bradycardia -Right bundle branch block . ABNORMAL [email or web address] Work Phone: Vital Signs Date Time Vital Sign Value Performing Clinician Faci dereje 01-03-2025 10:32-0400 Body height 182.[address] Mariela King MD Work Phone: [facility] 01-03-2025 10:32-0400 Body mass index (BMI) [Ratio] 29.7 kg/m2 Dr. Mariela King MD Work Phone: [facility] 01-03-2025 10:32-0400 Body weight 99.[address] Mariela King MD Work Phone: [facility] 01-03-2025 10:32-0400 Diastolic blood pressure 69 mm[Hg] Dr. Mariela King MD Work Phone: [facility] 01-03-2025 10:32-0400 Heart rate 60 /min Dr. Mariela King MD Work Phone: [facility] 01-03-2025 10:32-0400 Respiratory rate 16 /min Dr. Mariela King MD Work Phone: [phone] [address] 01-03-2025 10:32-0400 SaO2% (BldA) [Mass fraction] 92 % Dr. Mariela King MD Work Phone: [phone] [place] [address] 01-03-2025 10:32-0400 Systolic blood pressure 172 mm[Hg] Dr. Mariela King MD Work Phone: [phone] [place] [address] 01-03-2023 12:10-0400 Diastolic blood pressure 69 mm[Hg] Dr. Mariela King Work Phone: [phone] [place] [address] 01-03-2023 12:10-0400 Heart rate 72 /min Dr. Mariela King Work Phone: [facility] 01-03-2023 12:10-0400 Respiratory rate 15 /min Dr. Mariela King Work Phone: [facility] 01-03-2023 12:10-0400 SaO2% (BldA) [Mass fraction] 98 % Dr. Mariela King Work Phone: [facility] 01-03-2023 12:10-0400 Systolic blood pressure 127 mm[Hg] Dr. Mariela King Work Phone: [facility] 01-03-2023 08:14-0400 Body height 182.[address] Mariela King Work Phone: [facility] 01-03-2023 08:14-0400 Body temperature 97.1 [degF] Dr. Mariela King Work Phone: [facility] 10-24-2022 11:02-0400 Body mass index (BMI) [Ratio] 29.8 kg/m2 Dr. Mariela King Work Phone: [facility] 10-24-2022 11:02-0400 Body weight 99.[address] Mariela King Work Phone: [facility] 10-24-2022 11:02-0400 Diastolic blood pressure 78 mm[Hg] Dr. Mariela King Work Phone: [facility] 10-24-2022 11:02-0400 Heart rate 62 /min Dr. Mariela King Work Phone: [facility] 10-24-2022 11:02-0400 Respiratory rate 18 /min Dr. Mariela King Work Phone: [facility] 10-24-2022 11:02-0400 SaO2% (BldA) [Mass fraction] 94 % Dr. Mariela King Work Phone: [facility] 10-24-2022 11:02-0400 Systolic blood pressure 135 mm[Hg] Dr. Mariela King Work Phone: [facility] 02-22-2022 09:56-0400 Body height 182.[address] Mariela King Work Phone: [facility] Work Phone: 02-22-2022 09:56-0400 Diastolic blood pressure 70 mm[Hg] Dr. Mariela King Work Phone: [facility] Work Phone: 02-22-2022 09:56-0400 Systolic blood pressure 130 mm[Hg] Dr. Mariela King Work Phone: [facility] Work Phone: 02-22-2022 09:56-0400 Body mass index (BMI) [Ratio] 29.8 kg/m2 Dr. Mariela King Work Phone: [facility] Work Phone: 02-22-2022 09:56-0400 Body weight 99.[address] Mariela King Work Phone: [facility] Work Phone: 02-22-2022 09:56-0400 Heart rate 67 /min Dr. Mariela King Work Phone: [facility] Work Phone: 02-22-2022 09:56-0400 Respiratory rate 18 /min Dr. Mariela King Work Phone: [facility] Work Phone: 02-22-2022 09:56-0400 SaO2% (BldA) [Mass fraction] 95 % Dr. Mariela King Work Phone: [facility] Work Phone: 08-25-2021 09:00-0400 Body height 182.[address] Mariela King Work Phone: [facility] Work Phone: 08-25-2021 09:00-0400 Body mass index (BMI) [Ratio] 29.2 kg/m2 Dr. Mariela King Work Phone: [facility] Work Phone: 08-25-2021 09:00-0400 Body weight 97.[address] Mariela King Work Phone: [facility] Work Phone: 08-25-2021 09:00-0400 Diastolic blood pressure 75 mm[Hg] Dr. Mariela King Work Phone: [facility] Work Phone: 08-25-2021 09:00-0400 Heart rate 71 /min Dr. Mariela King Work Phone: [facility] Work Phone: 08-25-2021 09:00-0400 Respiratory rate 18 /min Dr. Mariela King Work Phone: [facility] Work Phone: 08-25-2021 09:00-0400 SaO2% (BldA) [Mass fraction] 94 % Dr. Mariela King Work Phone: [facility] Work Phone: 08-25-2021 09:00-0400 Systolic blood pressure 140 mm[Hg] Dr. Mariela King Work Phone: [facility] Work Phone: 07-19-2021 20:05-0400 Respiratory rate 18 /min Dr. Mariela King Work Phone: [facility] Work Phone: 07-19-2021 19:15-0400 Diastolic blood pressure 76 mm[Hg] Dr. Mariela King Work Phone: [facility] Work Phone: 07-19-2021 19:15-0400 Heart rate 68 /min Dr. Mariela King Work Phone: [facility] Work Phone: 07-19-2021 19:15-0400 SaO2% (BldA) [Mass fraction] 98 % Dr. Mariela King Work Phone: [facility] Work Phone: 07-19-2021 19:15-0400 Systolic blood pressure 156 mm[Hg] Dr. Mariela King Work Phone: [facility] Work Phone: 07-19-2021 17:24-0400 Body height 182.[address] Mariela King Work Phone: [facility] Work Phone: 07-19-2021 17:24-0400 Body mass index (BMI) [Ratio] 29.2 kg/m2 Dr. Mariela King Work Phone: [facility] Work Phone: 07-19-2021 17:24-0400 Body temperature 97.2 [degF] Dr. Mariela King Work Phone: [facility] Work Phone: 07-19-2021 17:24-0400 Body weight 97.[address] Mariela King Work Phone: [facility] Work Phone: 05-24-2021 08:29-0500 Body mass index (BMI) [Ratio] 29.1 kg/m2 Dr. Mariela King Work Phone: [facility] Work Phone: 05-24-2021 08:29-0500 Body weight 97.[address] Mariela King Work Phone: [facility] Work Phone: 05-24-2021 08:29-0500 Diastolic blood pressure 59 mm[Hg] Dr. Mariela King Work Phone: [facility] Work Phone: 05-24-2021 08:29-0500 Heart rate 57 /min Dr. Mariela King Work Phone: [facility] Work Phone: 05-24-2021 08:29-0500 Respiratory rate 18 /min Dr. Mariela King Work Phone: [facility] Work Phone: 05-24-2021 08:29-0500 SaO2% (BldA) [Mass fraction] 97 % Dr. Mariela King Work Phone: [facility] Work Phone: 05-24-2021 08:29-0500 Systolic blood pressure 104 mm[Hg] Dr. Mariela King Work Phone: [facility] Work Phone: 04-23-2021 10:16-0500 Body temperature 98.1 [degF] Dr. Mariela King Work Phone: [facility] Work Phone: 04-23-2021 10:16-0500 Diastolic blood pressure 57 mm[Hg] Dr. Mariela King Work Phone: [facility] Work Phone: 04-23-2021 10:16-0500 Heart rate 64 /min Dr. Mariela King Work Phone: [facility] Work Phone: 04-23-2021 10:16-0500 Respiratory rate 16 /min Dr. Mariela King Work Phone: [facility] Work Phone: 04-23-2021 10:16-0500 SaO2% (BldA) [Mass fraction] 92 % Dr. Mariela King Work Phone: [facility] Work Phone: 04-23-2021 10:16-0500 Systolic blood pressure 146 mm[Hg] Dr. Mariela King Work Phone: [facility] Work Phone: 04-21-2021 11:27-0500 Body weight 97.[address] Mariela King Work Phone: [facility] Work Phone: 03-26-2021 16:54-0500 Body mass index (BMI) [Ratio] 29.6 kg/m2 Dr. Mariela King Work Phone: [facility] Work Phone: 03-26-2021 13:39-0500 Body temperature 97.7 [degF] Dr. Mariela King Work Phone: [facility] Work Phone: 03-26-2021 13:39-0500 Diastolic blood pressure 61 mm[Hg] Dr. Mariela King Work Phone: [facility] Work Phone: 03-26-2021 13:39-0500 Heart rate 91 /min Dr. Mariela Kign Work Phone: [facility] Work Phone: 03-26-2021 13:39-0500 Respiratory rate 18 /min Dr. Mariela King Work Phone: [facility] Work Phone: 03-26-2021 13:39-0500 SaO2% (BldA) [Mass fraction] 92 % Dr. Mariela King Work Phone: [facility] Work Phone: 03-26-2021 13:39-0500 Systolic blood pressure 148 mm[Hg] Dr. Mariela King Work Phone: [facility] Work Phone: 03-23-2021 13:36-0500 Body weight [address] Mariela King Work Phone: [facility] Work Phone: 03-23-2021 05:39-0500 Body mass index (BMI) [Ratio] 29.6 kg/m2 Dr. Mariela King Work Phone: [facility] Work Phone: 01-09-2017 15:50-0400 BMI (Body [...] Non-patient / Non-visit Dr. Mariela kern MD -[facility] Start: 01-20-2025 End: 01-20-[address] Mariela King MD Work Phone: -Cardiovascular Services Start: 01-20-2025 End: 01-20-[address] Mark Paris MD -Cardiovascular Services Work Phone: Start: 01-20-2025 End: 01-20-2025 ambulatory Mariela King Facility:[facility] Start: 01-03-2025 End: 01-03-[address] Mark Paris MD -[facility] Work Phone: Start: 01-03-2025 End: 01-03-[address] Mariela King MD Work Phone: -[facility] Start: 10-16-2024 End: 10-16-[address] Mariela King MD -Physical Therapy Work Phone: Start: 10-16-2024 End: 10-16-[address] Mariela King MD Work Phone: -Physical Therapy Start: 01-27-2023 End: 01-27-[address] Mariela King Work Phone: [facility] Work Phone: Start: 01-27-2023 End: 01-27-[address] Mariela King Work Phone: [facility] Work Phone: Start: 01-03-2023 End: 01-03-2023 Emergency department patient visit Dr. Mariela King Work Phone: [facility]-Emergency Department Work Phone: Start: 10-24-2022 End: 10-24-[address] Mariela King Work Phone: [facility] Work Phone: Start: 02-22-2022 End: 02-22-[address] Mariela King Work Phone: [facility] Work Phone: Start: 02-22-2022 End: 02-22-[address] Mariela King Work Phone: [facility] Start: 2021 End: [address] Mariela King Work Phone: [facility] Start: 09-09-2021 Non-patient / Non-visit Dr. Dylan King Work Phone: [facility] Start: 09-09-2021 End: 09-09-[address] [facility] Start: 08-30-2021 End: 08-30-[address] Mariela King Work Phone: [facility] Start: 08-25-2021 End: 08-25-[address] Mariela King Work Phone: [facility] Start: 07-19-2021 End: 07-19-2021 Emergency department patient visit Dr. Mariela King Work Phone: [facility]-Emergency Department Start: 06-25-2021 End: 06-25-[address] [facility] Start: 06-25-[address] [facility] Start: 05-24-2021 End: 05-24-[address] Mariela King Work Phone: [facility] Start: 05-20-2021 End: 05-20-[address] Mariela King Work Phone: [facility] Start: 05-05-2021 End: 05-05-[address] Mariela King Work Phone: [facility] Start: 03-26-2021 End: 04-23-2021 Evaluation and management of inpatient Dr. Mariela King Work Phone: [facility]-Transitional Care Unit Start: 03-26-2021 Non-patient / Non-visit Dr. Dylan King Work Phone: [facility] Inpatient Physicians Start: 03-25-2021 Non-patient / Non-visit Dr. Dylan King Work Phone: [facility] Inpatient Physicians Start: 03-24-2021 Non-patient / Non-visit Dr. Dylan King Work Phone: [facility] Inpatient Physicians Start: 03-23-2021 Non-patient / Non-visit Dr. Dylan King Work Phone: [facility] Inpatient Physicians Start: 03-23-2021 Non-patient / Non-visit Dr. Dylan King Work Phone: [facility] Start: 03-22-2021 Non-patient / Non-visit Dr. Dylan King Work Phone: [facility] Inpatient Physicians Start: 03-22-2021 End: 03-26-2021 Evaluation and management of inpatient Dr. Mariela King Work Phone: [facility]-Medical Surgical 3 Start: 03-24-2020 Patient encounter procedure SELF SELF Facility:[facility] Procedures Date Procedure Procedure Detail Performing Clinician [...] Date Care Activity Detail Author Start: 01-03-2023 [facility] Start: 07-19-2021 [facility] Work Phone: Start: 10-09-2017 End: 10-09-2017 Appointment Appointment [facility] Work Phone: Start: 01-09-2017 End: 01-09-2017 Appointment Appointment [facility] Work Phone: Start: 01-09-2017 End: 01-09-2017 *Hepatic Function Panel *Hepatic Function Panel [facility] Work Phone: Start: 01-09-2017 End: 01-09-2017 Follow Up Appt 9 months Follow Up Appt 9 months [facility] Work Phone: Start: 01-09-2017 End: 01-09-2017 Lipid panel [AGGREGATE] *Lipid Profile CC PCP [facility] Work Phone: Start: 01-09-2017 End: 01-09-2017 PFM P[facility] Work Phone: Start: 10-06-2016 End: 04-08-2016 *Hepatic Function Panel *Hepatic Function Panel [facility] Work Phone: Start: 10-06-2016 End: 04-08-2016 Lipid panel [AGGREGATE] *Lipid Profile CC PCP [facility] Work Phone: Start: 04-06-2016 End: 04-08-2016 *Hepatic Function Panel *Hepatic Function Panel [facility] Work Phone: Start: 04-06-2016 End: 04-06-2016 Follow Up Appt 9 months Follow Up Appt 9 months [facility] Work Phone: Start: 04-06-2016 End: 04-08-2016 Lipid panel [AGGREGATE] *Lipid Profile CC PCP [facility] Work Phone: Start: 04-06-2016 End: 04-06-2016 PFM PFM [facility] Work Phone: Start: 08-03-2015 End: 08-03-2015 Echocardiography Echocardiogram (complete) [facility] Work Phone: Start: 08-03-2015 End: [...] 6 months Follow Up Appt 6 months [facility] Work Phone: Start: 12-29-2014 End: 07-31-2015 Lipid panel [AGGREGATE] *Lipid Profile CC PCP [facility] Work Phone: Start: 12-29-2014 End: 12-29-2014 MMM MMM [facility] Work Phone: Start: 11-18-2014 End: 12-23-2014 *Hepatic Function Panel *Hepatic Function Panel [facility] Work Phone: Start: 11-18-2014 End: 12-23-2014 Lipid panel [AGGREGATE] *Lipid Profile CC PCP [facility] Work Phone: Start: 05-26-2014 End: 05-26-2014 Follow Up Appt 6 months Follow Up Appt 6 months [facility] Work Phone: Start: 05-26-2014 End: 05-26-2014 PFM PFM [facility] Work Phone: Start: 05-01-2014 End: 05-26-2014 *Hepatic Function Panel *Hepatic Function Panel [facility] Work Phone: Start: 05-01-2014 End: 05-26-2014 Lipid panel [AGGREGATE] *Lipid Profile CC PCP [facility] Work Phone: Start: 11-11-2013 End: 11-14-2013 *Hepatic Function Panel *Hepatic Function Panel [facility] Work Phone: Start: 11-11-2013 End: 11-11-2013 Follow Up Appt 6 months Follow Up Appt 6 months [facility] Work Phone: Start: 11-11-2013 End: 11-14-2013 Lipid panel [AGGREGATE] *Lipid Profile CC PCP [facility] Work Phone: Start: 11-11-2013 End: 11-11-2013 PFM PFM [facility] Work Phone: Start: 05-06-2013 End: 11-25-2013 *Hepatic Function Panel *Hepatic Function Panel [facility] Work Phone: Start: 05-06-2013 End: 05-06-2013 Follow Up Appt 6 months Follow Up Appt 6 months [facility] Work Phone: Start: 05-06-2013 End: 11-25-2013 Lipid panel [AGGREGATE] *Lipid Profile CC PCP [facility] Work Phone: Start: 05-06-2013 End: 05-06-2013 PFM PFM [facility] Work Phone: Start: 12-30-2012 End: 05-26-2014 *Hepatic Function Panel *Hepatic Function Panel [facility] Work Phone: Start: 12-30-2012 End: 05-26-2014 Lipid panel [AGGREGATE] *Lipid Profile [facility] Work Phone: Start: 10-04-2012 End: 10-04-2012 Follow Up Appt 6 months Follow Up Appt 6 months [facility] Work Phone: Start: 10-04-2012 End: 10-04-2012 PFM PFM [facility] Work Phone: Start: 08-15-2012 End: 08-15-2012 Electrocardiogram, complete EKG (In office) [facility] Work Phone: Start: 08-15-2012 End: 08-15-2012 Follow Up Appt 6 weeks Follow Up Appt 6 weeks [facility] Work Phone: Start: 08-15-2012 End: 08-15-2012 PFM PFM [facility] Work Phone: Start: 06-29-2012 End: 07-27-2012 *Hepatic Function Panel *Hepatic Function Panel [facility] Work Phone: Start: 06-29-2012 End: 07-27-2012 Lipid panel [AGGREGATE] *Lipid Profile [facility] Work Phone: Start: 01-23-2012 End: 01-23-2012 Echocardiography Echocardiogram (complete) [facility] Work Phone: Start: 01-23-2012 End: 01-23-2012 Electrocardiogram, complete EKG (In office) [facility] Work Phone: Start: 01-23-2012 End: 01-23-2012 Follow Up Appt 6 months Follow Up Appt 6 months [facility] Work Phone: Start: 01-23-2012 End: 01-23-2012 Nuclear stress test -exercise Nuclear stress test -exercise [facility] Work Phone: Start: 01-20-2012 End: 07-25-2012 *Hepatic Function Panel *Hepatic Function Panel [facility] Work Phone: Start: 01-20-2012 End: 07-25-2012 Lipid panel [AGGREGATE] *Lipid Profile [facility] Work Phone: Start: 07-25-2011 End: 07-25-2011 Electrocardiogram, complete EKG (In office) [facility] Work Phone: Start: 07-25-2011 End: 07-25-2011 Follow Up Appt 6 months Follow Up Appt 6 months [facility] Work Phone: Hepatic function panel [facility] Lipid 1996 panel - S bruce or Plasma [facility] Patient Education [facility] Work Phone: Patient referral [facility] Work Phone: US Carotid arteries [facility] Immunizations Immunization Date Immunization Notes Care Provider Fa jania 02-02-[address] Mariela King Work Phone: [facility] 06-18-2020 Covid (Moderna) Dr. Mariela Linder Work Phone: [facility] 05-21-2020 Timoid (Moderna) Dr. Mariela Linder Work Phone: [facility] 01-30-2020 influenza, injectabl e, quadrivalent, preservative free Dr. Mariela King Work Phone: [facility] 01-30-2020 influenza, seasonal, injectable Dr. Mariela King Work Phone: [facility] 01-10-2017 influenza, injectabl e, quadrivalent, preservative free Dr. Mariela King Work Phone: [facility] 01-10-2017 influenza, seasonal, injectable Dr. Mariela King Work Phone: [facility] Payers Date Payer Category Payer Self-pay [id number] 2020 Medicare [id number] 2015 Private Health Insurance 101 [id number] 1935 Unknown [id number] Medicare [id number] Unknown [id number] Unknown [id number] Unknown [id number] Unknown [id number] Social History Date Type Detail Facility Start: 07-19-2021 End: 01-03-2023 Tobacco smoking status NHIS Unknown if ever smoked [facility] Start: 03-18-2020 None [facility] Start: 03-18-2020 With Family [facility] Start: 03-23-2020 Non-smoker [facility] Start: 1935 Sex Assigned At Male [facility] Start: 01-03-2023 End: 01-03-2025 Tobacco smoking status NHIS Ex-smoker (finding) [facility] Sex Male [facility] Medical Equipment Procedure Code Equipment Code Equipment [...] Activity Abili ty With Assist of 1 [facility] Work Phone: 04-17-2021 Functional status Chair [facility] Work Phone: 03-26-2021 Functional status Ambulates;Bathroom Priv ilege [facility] Work Phone: Mental Status Date Assessment Result Facility 01-03-2023 Cognitive function Voice/Name [facility] Work Phone: 07-19-2021 Cognitive function Voice/Name [facility] Work Phone: 04-23-2021 Cognitive function Voice/Name [facility] Work Phone: 04-10-2021 Cognitive function Appropriate [facility] Work Phone: 03-26-2021 Cognitive function Voice/Name [facility] Work Phone: Clinical Notes 02-29-2020 to 01-03-2025 Note Date & Type Note Facility 01-03-2025 Evaluation note Diagnosis Onset Date Resolution Hyperlipidemia acute January 03, 2025 10:27am PVD (peripheral vascular disease) acute January 03 10:27am Atherosclerotic heart disease of [place] coronary artery without angina pectoris chronic January 03 10:27am Hypertension chronic December 10:27am [facility] Work Phone: 1(614) 756-194809-05-2023 Discharge summary Author Toy Crandall [facility] January 03, 2023 11:50am Note Date/Time January 03, 2023 9:52am [facility] Medical Records Department [address] [place] [address] Emergency Department Summary 01/03/23 MR#: [id number] Acct: [id number] Name: RANCHO MULLER Rep #:[id number] : [...] exertion. He had multivessel bypass surgery. His flight service specialist is Dr. Troy. 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 AK interval is 172 ms. Cures duration 160 ms. QT duration is 414 ms. [place] is normal) Treatment and Re-Evaluation :: Patient was informed that both of his troponins were negative and the delta was 1. With an unchanged EKG atypical symptoms normal 2-hour troponin we will have him follow-up with the [facility]. He will need to be [...] your Primary Care Provider. Call [facility] ([phone]) or report to the closest Emergency Room. Call 911 if necessary. 01/03/23 1150 <Electronically signed by Toy Crandall MD> Cosigner Signature (if applicable): CC: Dr. Mariela King MD ~ Signed [facility] Work Phone: 1(172) 284-560007-02-2021 NoteHNO ID: [id number] Author: Alexa Schaefer APRN.FACILITY PLANNER Service: ? Author Type: Nurse Practitioner Type: [...] Schaefer APRN.[facility]06-02-2021 NoteHNO ID: [id number] Author: Melani Lombardo APRN.DESK MAKER Service: ? Author Type: Nurse Licensed Audiologist Type: Anesthesia Procedure Notes Filed: 09/30/2020 10:43 AM Note Text: ANESTHESIOLOGY PROCEDURE NOTE A-Line General Information Procedure Start Time/Medication Administration: 09/30/2020 9:30 AM Procedure End Time: 09/30/2020 9:36 AM Patient location during procedure: OR Timeout Performed Pre-procedure: timeout performed Indication: continuous blood pressure monitoring and blood sampling needed Staffing Anesthesiologist: Rusty Gomez MD DESK MAKER: Melani Lombardo APRN.DESK MAKER Performed by: KRISTOPHER Preparation Sterility Preparation: hand [...] September 30, 2020 TIME: 10:42 AM CSN: [id number]06-02-2021 NoteHNO ID: [id number] Author: Melani Lombardo APRN.CRNA Service: ? Author Type: Nurse Licensed Audiologist Type: Anesthesia Procedure Notes Filed: 09/30/2020 10:04 AM Note Text: ANESTHESIOLOGY PROCEDURE NOTE Airway General Information Procedure Start Time/Medication Administration: 09/30/2020 9:29 AM Patient location during procedure: OR Patient identity confirmed: arm band, care teamcenter consultant and patient Staffing Anesthesiologist: Rusty Gomez MD DESK MAKER: Melani Lombardo APRN.DESK MAKER Performed by: KRISTOPHER Indications and Patient Condition [...] esophageal intubation: no Airway not difficult SIGNATURE: Melnai Lombardo APRN.CRNA PATIENT NAME: Rancho Muller DATE: September 30, 2020 TIME: 10:03 AM CSN: [id number] [facility]06-01-2021 NoteHNO ID: [id number] Author: Johnson Fitzgerald APRN.CNP Service: Anesthesiology Author Type: Nurse Practitioner Type: Progress Notes Filed: 09/29/2020 1:59 PM Note Text: Spoke to Automn at 's office regarding the cardiac optimization per surgeons request per PST visit. She states that she will attempt to retrieve and scan into Epic or fax over.[facility] 08-21-2020 NoteHNO ID: [id number] Author: Alexa (Temitope Segal) REHAN Schaefer Service: [...] Schaefer APRN.[facility]03-25-2021 NoteHNO ID: [id number] Author: Desmond Peters DO Service: General Surgery [...] questions or concerns Mon-Fri 6a-5p please page [phone]. After 5pm and on Weekends and Holidays, please page [phone] if in ICU or [phone] if on RNF. Subjective SUBJECTIVE: Hypertensive overnight, [...] 07/23/20 0659 07/23/20699 - 07/24/20 0659 Shift 8592-5197 7422-1529 8047-4057 24 Hour Total 8739-9628 2165-8563 2299-5696 24 Hour Total INTAKE PO 240 240 PO 240 240 IV 1550 1550 Volume (mL) (NaCl 0.9% iv infusion) 750 750 Volume (mL) (lactated ringers infusion) 750 750 Volume (mL) (clindamycin iv piggyback 900 mg in D5W 50 mL (CLEOCIN)) 50 50 Shift Total 8118 614 0270 OUTPUT Urine 500 500 227 1332 Void (ml) 150 350 500 OR Urine Output 500 500 Blood 50 50 Estimated Blood loss 50 50 Shift Total 550 117 696 4164 Weight (kg) MEDICATIONS Current Facility-Administered Medications Medication [...] if in ICU or 2174 if on RNF.[facility]03-24-2021 NoteHNO ID: [id number] Author: Celia Valero (Aprn Crna) Service: Anesthesiology Author Type: Nurse Licensed Audiologist Type: Anesthesia Procedure Notes Filed: 07/22/2020 10:30 [...] July 22, 2020 TIME: 10:29 AM CSN: [id number]. Mary'S [facility] Center03-24-2021 NoteHNO ID: [id number] Author: Celia Valero (Aprn Crna) Service: Anesthesiology Author Type: Nurse Licensed Audiologist Type: Anesthesia Procedure Notes Filed: 07/22/2020 10:29 [...] July 22, 2020 TIME: 10:28 AM CSN: [id number]. Mary'[facility]03-24-2021 NoteHNO ID: [id number] Author: Celia Valero (Aprn Crna) Service: Anesthesiology Author Type: Nurse Licensed Audiologist Type: Anesthesia Procedure Notes Filed: 07/22/2020 10:27 AM Note Text: ANESTHESIOLOGY PROCEDURE NOTE Airway General Information Procedure Start Time/Medication Administration: 07/22/2020 8:54 AM Patient location during procedure: OR Patient identity confirmed: arm band and patient Staffing Anesthesiologist: Fermin Foy DESK MAKER: Celia Valero (Aprn Crna) Performed by: DESK MAKER Indications and Patient Condition Preoxygenated: yes Patient [...] July 22, 2020 TIME: 10:26 AM CSN: [id number]. Mary'S [facility] Center12-03-2020 NoteHNO ID: [id number] Author: Liliya Mares Service: ? Author Type: [...] disorder - COPD (chronic obstructive pulmonary disease) ([facility]) - Coronary atherosclerosis of unspecified type of vessel, [place] or graft - Depression - Displacement of [...] visit. I spent more than 10 minutes ppoi-ox-iscx with the patient and over half the time was devoted to counseling and/or coordination of care. Liliya Mares, [facility]11-03-2020 NoteHNO ID: [id number] Author: Cyn Tadeo Service: General Surgery Author [...] if in ICU or 2174 if on RNF.[facility]11-02-2020 NoteHNO ID: [id number] Author: Joce Zuniga MD Service: Hospital Medicine Author Type: Physician Type: Progress Notes Filed: 03/02/2020 4:46 PM Note Text: DEPARTMENT OF HOSPITAL MEDICINE PROGRESS NOTE SERVICE DATE: 03/02/2020 SERVICE TIME: 4:42 PM Hospital Medicine/Primary Attending: Dr.Lodi Zuniga NIGHT AND WEEKEND COVERAGE: After 7pm please page [phone] SUBJECTIVE: no acute events Denies CP/SOB. Denies [...] TIME: 4:42 PM PAGER/CONTACT #: carina el [facility] 03-02-2020 NoteHNO ID: [id number] Author: Gudelia Solis Service: General Surgery Author [...] questions or concerns Mon-Fri 6a-5p please page [phone]. After 5pm and on Weekends and Holidays, please page [phone] if in ICU or [phone] if on RNF. Subjective SUBJECTIVE: Patient resting [...] March 02, 2020 TIME: 3:26 PM Pager: [phone] Vascular and Thoracic Service Pager: For questions or concerns Mon-Mon 6a-5p please page [phone]. After 5pm and on Weekends and Holidays, please page [phone] if in ICU or 2174 if on RNF.[facility]11-01-2020 NoteHNO ID: [id number] Author: Joce Zuniga MD Service: Hospital Medicine Author Type: Physician Type: Progress Notes Filed: 03/01/2020 3:16 PM Note Text: DEPARTMENT OF HOSPITAL MEDICINE PROGRESS NOTE SERVICE DATE: 03/01/2020 SERVICE TIME: 3:12 PM Hospital Medicine/Primary Attending: Dr.Lodi Zuniga NIGHT AND WEEKEND COVERAGE: After 7pm please page [phone] SUBJECTIVE: Patient seen and examined,resting in the [...] TIME: 3:12 PM PAGER/CONTACT #: carina el [facility] 03-01-2020 NoteHNO ID: [id number] Author: Antonette Whipple Service: Vascular Surgery Author [...] 0659 03/01/20 07 - 03/02/20 0659 Shift 3263-0701 3687-1961 0331-7957 24 Hour Total 9928-9884 9073-1130 9786-1424 24 Hour Total INTAKE Shift Total OUTPUT [...] if in ICU or 2174 if on RNF.[facility]10-31-2020 NoteHNO ID: [id number] Author: Joce Zuniga MD Service: Hospital Medicine Author Type: Physician Type: Progress Notes Filed: 02/29/2020 3:42 PM Note Text: DEPARTMENT OF HOSPITAL MEDICINE PROGRESS NOTE SERVICE DATE: 02/29/2020 SERVICE TIME: 3:35 PM Hospital Medicine/Primary Attending: Dr.Lodi Zuniga NIGHT AND WEEKEND COVERAGE: After 7pm please page [phone] SUBJECTIVE: patient seen and examined Resting in [...] TIME: 3:35 PM PAGER/CONTACT #: carina team [facility] 02-29-2020 NoteHNO ID: [id number] Author: Eber Rios DO Service: Vascular Surgery [...] questions or concerns Mon-Fri 6a-5p please page [phone]. After 5pm and on Weekends and Holidays, please page [phone] if in ICU or [phone] if on RNF. Subjective SUBJECTIVE: Doing fair [...] PATIENT NAME: Rancho Duran (more content not included)...[facility]10-31-2020 NoteHNO ID: [id number] Author: Interface Note Service: ? Author Type: ? Type: Progress Notes Filed: 02/29/2020 3:25 AM Note Text: Epic Scheduled Downtime: 02/29/2020 12:20:00 AM to 02/29/2020 3:09:00 AMSt. Mary'S [facility] CenterEvaluation note* Diagnosis Onset Date Resolution Status Anemia [...] stenosis acute Atherosclerotic heart diseas e of [place] coronary artery without angina pectoris chronic Hyperlipidemia [facility] Work Phone: Evaluation note* Diagnosis Onset Date Resolution Status Status post-operative repair of closed fracture of left hip acute Aortic root dilatation acute Benign essential HTN acute Bilateral carotid artery stenosis acute Atherosclerotic heart diseas e of [place] coronary artery without angina pectoris chronic Hyperlipidemia chronic Anemia acute Aortic root dilatation acute Benign essential HTN acute Bilateral carotid artery stenosis acute Chest pain acute Atherosclerotic heart diseas e of [place] coronary artery without angina pectoris chronic Hyperlipidemia [facility] Work Phone: Evaluation note* Diagnosis Onset Date Resolution Status Aortic root dilatation acute Benign essential HTN acute Bilateral carotid artery stenosis acute Atherosclerotic heart diseas e of [place] coronary artery without angina pectoris chronic Hyperlipidemia chronic Anemia acute Aortic root dilatation acute Benign essential HTN acute Bilateral carotid artery stenosis acute Chest pain acute Atherosclerotic heart diseas e of [place] coronary artery without angina pectoris chronic Hyperlipidemia [facility] Work Phone: Evaluation note* Diagnosis Onset Date Resolution Status Anemia acute Aortic root dilatation acute Benign essential HTN acute Bilateral carotid artery stenosis acute Chest pain acute Atherosclerotic heart diseas e of [place] coronary artery without angina pectoris chronic Hyperlipidemia [facility] Work Phone: Evaluation note* Diagnosis Onset Date Resolution Status Aortic root dilatation acute Benign essential HTN acute Bilateral carotid artery stenosis acute Atherosclerotic heart diseas e of [place] coronary artery without angina pectoris chronic Hyperlipidemia [facility] Work Phone: Evaluation noteNo assessment information available [facility] Work Phone: Evaluation note* Diagnosis Onset Date Resolution Status Admit Date Hyperlipidemia acute January 03, 2025 10:27am [facility] Work Phone: Reason for referral (narrative)No reason for referral [facility] Work Phone: Summary Purpose Family History No Family History Records Found Relationship Condition Age at Onset Recorded Date/T joseline father Myocardial infarction 68 brother Coronary artery disease Unknown Myocardial infarction Unknown History of coronary artery bypass surgery Unknown brother Congestive heart failure Unknown Advance Directives No Advanced Directives Records Found Advance Directive Response Recorded Date/ Time Name of Medical Power of Dough[employer] D[employer]er Lea reyna () March 22, 2021 8:02pm Name of Medical Power of Dough[employer] D[employer]er Lea reyna, March 29, 2021 11:50am Living Will No July 19, 2021 6:39pm Power of Doughnut D[employer]er No July 19 6:39pm Advance Directive Response Recorded Date/ Time Living Will No July 19, 2021 6:39pm Power of Doughnut D[employer]er No July 19 6:39pm Advance Directive Response Recorded Date/ Time Living Will No January 03 8:28am Power of Dough[employer] D[employer]er No January 03, 2023 8:28am Chief Complaint [...] carotid artery stenosis Atherosclerotic heart disease of [place] coronary artery without angina pectoris Hyperlipidemia Chief Complaint LEFT HIP EORDER 6 m fu LT HIP FX/ RX HERE CHEST PAIN 3-4 MO F/U Reason for Visit Status post-operativ e repair of closed fracture of left hip Aortic root dilatation Benign essential HTN Bilateral carotid artery stenosis Atherosclerotic heart disease of [place] coronary artery without angina pectoris Hyperlipidemia Anemia Aortic root dilatation Benign essential HTN Bilateral carotid artery stenosis Chest pain Atherosclerotic heart disease of [place] coronary artery without angina pectoris Hyperlipidemia Chief Complaint EORDER 6 m fu LT HIP FX/ RX HERE CHEST PAIN 3-4 MO F/U CP CAD CP CAD Reason for Visit Aortic root dilatati on Benign essential HTN Bilateral carotid artery stenosis Atherosclerotic heart disease of [place] coronary artery without angina pectoris Hyperlipidemia Anemia Aortic root dilatation Benign essential HTN Bilateral carotid artery stenosis Chest pain Atherosclerotic heart disease of [place] coronary artery without angina pectoris Hyperlipidemia Chief Complaint LT HIP FX/ RX HERE CHEST PAIN 3-4 MO F/U CP CAD CP CAD Reason for Visit Anemia Aortic root dilatation Benign essential HTN Bilateral carotid artery stenosis Chest pain Atherosclerotic heart disease of [place] coronary artery without angina pectoris Hyperlipidemia Chief Complaint 6 M FU INT LABS Reason for Visit Aortic root dilatati on Benign essential HTN Bilateral carotid artery stenosis Atherosclerotic heart disease of [place] coronary artery without angina pectoris Hyperlipidemia Chief Complaint 1 Y FU PREV PFM PT cp Reason for Visit Aortic root dilatati on Benign essential HTN Bilateral carotid artery stenosis Atherosclerotic heart disease of [place] coronary artery without angina pectoris Hyperlipidemia Chief Complaint 1 Y FU PREV PFM PT cp LABS AND XRAY- COPD Reason for Visit Aortic root dilatati on Benign essential HTN Bilateral carotid artery stenosis Atherosclerotic heart disease of [place] coronary artery without angina pectoris Hyperlipidemia Chief [...] 2024 10:27am Atherosclerotic heart diseas e of [place] coronary artery without angina pectoris January 03, 2025 10:27am Hypertension January 03, 2025 10:27am Additional Source Comments (unrecognized sect ion and content) No Status Records FoundNo Status Records FoundNo Status Records FoundNo Status Records FoundNo Status Records Found INFORMATION SOURCE (unrecogn ized section and content) DATE CREATED AUTHOR 03/24/2020 [facility] DATE CREATED AUTHOR AUTHOR'S ORGANIZ ATION 10/31/2020 [facility] DATE CREATED AUTHOR AUTHOR'S ORGANIZ ATION 02/05/2021 [facility] DATE CREATED AUTHOR AUTHOR'S ORGANIZ ATION 06/05/2021 [facility] DATE CREATED AUTHOR AUTHOR'S ORGANIZ ATION 02/06/2025 [facility] Goals (unrecognized section and content) Goals may [...] BE BASED ON THE PRIMARY CLINICAL RECORDS. [facility]. provides no warranty or guarantee of the accuracy or completeness of information in this document.
[2025-03-30 02:36] VITALS: BMI 36.8
--- OUTSIDE RECORDS SUMMARY | 2025-03-30 02:46 | XMS RPT_ITS | CCD ---
Author Organization [facility] Care Team Providers Care Pump Tender Name Role Phone Jose Xie Unavailable Unavailable Jose Xie Unavailable Unavailable SELF, SELF Referring Unavailable Dr. Mariela King Primary Care Provider Dr. Mariela Angulo Emergency Provider Dr. Mariela Merritt Admit Provider Dr. Mariela Merritt Attending Provider 1([facility])[phone] Mariela Merritt Other Provider Dr. [...] Provider Michele MACHUCA, Dr. Urbina Attending Physician [phone] Mariela King Primary Care Unavailable Mariela Bautista [...] Phone: (2 sources) penicillin drug allergy 1 [facility] Work Phone: (11 sources) oxyCODONE Drug Allergy 2 Unknown [facility] (12 sources) Penicillins; Translations: [Penicillins] Allergy to substance 2 Hives [facility] (1 source) oxyCODONE Drug Allergy 5 [facility] Repository Medications Current Medications Medication Drug Class(es) [...] TABS One tablet by mouth daily ASPIRIN [id number] Shobha Silva [place] Start: 09-24-2010 take 1 tablet by esther th once daily ASPIRIN 81 MG TABS One tablet by mouth daily ASPIRIN [id number] Shobha Silva [place] Start: 09-24-2010 take 1 tablet by esther th once daily ASPIRIN EC 81 MG TBEC One tablet by mouth daily ASPIRIN [id number] Sis Patel RN cetirizine hydrochloride 5 mg [...] tablet by mouth at bedtime. ATORVASTATIN CALCIUM [id number] Garth Troy MD bisacodyl 5 mg delayed [...] (complete current supply then STOP) CLOPIDOGREL BISULFATE [id number] Garth Troy MD dexamethasone 4 mg oral [...] constipation docusate sodium 50 mg / sennosides, long term 8.6 mg oral tablet (11 sources) Start: [...] esther th once daily IMDUR 30 MG [id number] One tablet by mouth daily ISOSORBIDE MONONITRATE [id number] Garth Troy MD Start: 01-23-2012 End: 02-02-2012 take 1 tablet by mouth once daily IMDUR 30 MG [id number] One tablet by mouth daily ISOSORBIDE MONONITRATE [id number] Lilian Hodge RN lansoprazole 30 mg delayed [...] tablet by mouth daily as needed LANSOPRAZOLE [id number] Garth Troy MD Start: 09-24-2010 take 1 tablet by esther th once daily as needed PREVACID 30 MG CPDR One tablet by mouth daily as needed LANSOPRAZOLE [id number] Garth Troy MD lisinopril 10 mg oral [...] One tablet by mouth daily METOPROLOL TARTRATE [id number] Garth Troy MD Start: 09-24-2010 take 1 tablet by esther th twice daily METOPROLOL TARTRATE 25 MG TABS One tablet by mouth twice daily METOPROLOL TARTRATE [id number] Garth Troy MD mirtazapine 7.5 mg oral [...] AM and off in the PM NITROGLYCERIN [id number] Garth Troy MD Start: 02-02-2012 NITRO-DUR 0.2 MG/HR PT24 0.2 mg topically in the AM and off in the PM NITROGLYCERIN [id number] Garth Troy MD Start: 02-02-2012 End: 08-15-2012 NITRO-DUR 0.2 MG/HR PT24 0.2 mg topically in the AM and off in the PM NITROGLYCERIN [id number] Garth Troy MD Start: 09-24-2010 NITROGLYCERIN 0.4 MG SUBL 1 tablet under the tongue every 5 minutes times 3 as needed for chest pain. NITROGLYCERIN [id number] Garth Troy MD polyethylene glycol 3350 28352 mg powder for oral solution (11 sources) [...] by mouth twice daily RANEXA 500 MG [id number] One tablet by mouth twice daily RANOLAZINE [id number] Garth Troy MD Start: 08-15-2012 take 1 tablet by esther th twice daily RANEXA 500 MG [id number] One tablet by mouth twice daily RANOLAZINE [id number] Garth Troy MD Start: 08-15-2012 End: 05-06-2013 take 1 tablet by mouth twice daily RANEXA 500 MG [id number] One tablet by mouth twice daily RANOLAZINE [id number] Garth Troy MD rivaroxaban 10 mg oral [...] One tablet by mouth daily SERTRALINE HCL [id number] Shobha [place] tamsulosin hydrochloride 0.4 mg oral [...] tablet by mouth every evening TRAZODONE HCL [id number] Garth Troy MD zolpidem tartrate 5 mg [...] (3 sources) Long-term drug therapy; Translations: [Other prison (current) drug therapy] Onset: 2 Resolved: 5 [...] (current) use of other medications; Translations: [Other termite control servicer (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 Procedure Carotid Duplex 90112. This is a Carotid Duplex examination using B-mode, color flow and specral Doppler. Exam performed in department. VL/Carotid Duplex Ultrasound Interpretation Summary Mild (<50%) stenosis right extracranial internal carotid. Normal left extracranial internal carotid. Patent and antegrade vertebrals bilaterally. Ordering Physician: Mark Paris Referring Physician: Mariela King [facility] By[facility] Saba and Student 01/20/25 154 Date Mariela Bautista MD CC: Dr. Mariela King MD; Dr. Mark Paris MD Date Dictated: 01/20/25 140 Date Transcribed: 01/20/251546 Compression Molding Machine Tender: Signed Normal [facility] Duplex ultrasound of carotid artery reportOrdered By: Mariela Bautista on 01-20-2025 Study report [facility] [address] [place] [address] Carotid Duplex Ultrasound 01/20/251405 MR#: [id number] Acct: [id number] Name: RANCHO MULLER Rep #:[id number] : [...] the left vertebral artery. Procedure Carotid Duplex 43940. This is a Carotid Duplex examination using B-mode, color flow and specral Doppler. Exam performed in department. VL/Carotid Duplex Ultrasound Interpretation Summary Mild (<50%) stenosis right extracranial internal carotid. Normal left extracranial internal carotid. Patent and antegrade vertebrals bilaterally. Ordering Physician: Mark Paris Referring Physician: Mariela King Performed By: [facility] Saba and Student 01/20/25 9137 Date _ Mariela Bautista MD CC: Dr. Mariela King MD; Dr. Mark Paris MD ~ Date Dictated: 01/20/25 1406 Date Transcribed: 01/20/251546 Compression Molding Machine Tender: Signed [facility] Work Phone: Cardiology Visit Reporton Cardiology Visit Report [facility] [address] [place] [address] OFFICE VISIT Date of Service: 01/03/25 MR#: [id number] Acct: [id number] Name: RANCHO MULLER Rep #: [id number] : 1935 Provider: Dr. Mark thornton MD Age/Sex: 89/M Location[facility] Status: Signed HPI HPI History of [...] right coronary artery. This was done at [facility]. 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 This was done at [facility] after he had 2 TIAs. The patient [...] air Intake Visit Reasons: 14 M FU Air Pollution Auditor Required: No Accompanied by: Is patient in [...] you fallen in the past year?: Yes [facility] Medical History (Updated 01/03/25 @ 11:[address] Mark Paris MD) History of stress test Aortic root dilatation Bilateral carotid artery stenosis TIA (transient ischemic attack) Left carotid artery stenosis COPD (chronic obstructive pulmonary disease) Atherosclerosis of [place] arteries of extremity with intermittent claudication RBBB Carotid bruit Depression GERD (gastroesophageal reflux disease) Atherosclerotic heart disease of [place] coronary artery without angina pectoris Insomnia Hyperlipidemia [...] Chest P (more content not included)... Normal [facility] Absolute lymphocyte countOrd ered By: Mariela King on 01-27-2023 Lymphocytes Auto (Unsp spec) [#/Vol] 2.38 10*3/uL 0.83-4.51 [facility] Basophil percentageOrdered B y: Mariela King on 01-27-2023 Basophils/100 WBC (Bld) 0.5 % 0-1 [facility] Eosinophils/100 WBC (Bld) 1.2 % 0-5 [facility] Neutrophils (Bld) [#/Vol] 8.2 10*3/uL 2.0-7.7 [facility] Neutrophils/100 WBC (Bld) 68.7 % 47-70 [facility] WBC (Bld) [#/Vol] 11.9 10*3/uL 4.4-11.0 [facility] Blood erythrocytes count (nu mber/volume)Ordered By: Mariela King on 01-27-2023 RBC (Bld) [#/Vol] 4.64 10*6/uL 4.6-6.2 [facility] Blood hemoglobin measurement (mass/volume)Ordered By: Mariela King on 01-27-2023 Hemoglobin (Bld) [Mass/Vol] 14.8 g/dL 13.0-16.5 [facility] Blood lymphocytes/100 leukoc ytesOrdered By: Mariela King on 01-27-2023 Lymphocytes/100 WBC (Bld) 20.0 % 19-41 [facility] Blood monocytes/100 leukocyt esOrdered By: Mariela King on 01-27-2023 Monocytes/100 WBC (Bld) 9.1 % 0-10 [facility] Blood platelet mean volumeOr dered By: Mariela King on 01-27-2023 Platelet mean volume (Bld) [Entitic vol] 9.0 fL 6.2-12.0 [facility] Determination of erythrocyte mean corpuscular volume (MCV)Ordered By: Mariela King on 01-27-2023 MCV (RBC) [Entitic vol] 96.8 fL 80-94 [facility] Hematocrit Auto (Bld) [Volum e fraction]Ordered By: Mariela King on 01-27-2023 Hematocrit (Bld) [Volume fraction] 44.9 % 40-54 [facility] Laboratory - Hematology and Cell countsOrdered By: Mariela King on 01-27-2023 Erythrocyte distribution width (RBC) [Entitic vol] 47.8 fL 35.1-43.9 [facility] Erythrocyte distribution width (RBC) [Ratio] 13.6 % 11.6-14.6 [facility] Immature granulocytes/100 WBC (Bld) 0.500 % 0.0-0.9 [facility] Comment on above: IG% - Immature Granu locytes (promyelocytes, myelocytes and metamyelocytes) > 1% indicates that a LEFT SHIFT is Present. MCH (RBC) [Entitic mass] 31.9 pg 27.0-32.0 [facility] Nucleated RBC/100 WBC (Bld) [Ratio] 0 % 0-5 [facility] MCHC Auto (RBC) [Mass/Vol]Or dered By: Mariela King on 01-27-2023 MCHC (RBC) [Mass/Vol] 33.0 g/dL 32-36 [facility] Platelets bldOrdered By: Adrianna King on 01-27-2023 Platelets (Bld) [#/Vol] 294 10*3/uL 150-450 [facility] Serum or plasma C reactive p rotein measurement (mass/volume)Ordered By: Mariela King on 01-27-2023 CRP [Mass/Vol] 5.04 mg/L 0.0-3.0 [facility] Comment on above: C-Reactive Protein ( CRP) provides useful information for thediagnosis, therapy and monitoring of inflammatory processesand associated diseases. For the evaluation of Relative Riskfor Cardiovascular Disease, a High Sensitivity CRP (HSCRP)should be ordered. Absolute lymphocyte countOrd ered By: Toy Crandall on 01-03-2023 Lymphocytes Auto (Unsp spec) [#/Vol] 1.24 10*3/uL 0.83-4.51 [facility] Basophil percentageOrdered B y: Toy Crandall on 01-03-2023 Basophils/100 WBC (Bld) 0.4 % 0-1 [facility] Chloride [Moles/Vol] 103 mmol/L 98-107 [facility] Eosinophils/100 WBC (Bld) 0.7 % 0-5 [facility] Glucose [Mass/Vol] 123 mg/dL 74-106 [facility] Comment on above: Fasting Glucose resu lt from 100 to 125 mg/dL suggests IMPAIRED HOMEOSTASIS per A.D.A. criteria. Neutrophils (Bld) [#/Vol] 7.0 10*3/uL 2.0-7.7 [facility] Neutrophils/100 WBC (Bld) 74.9 % 47-70 [facility] Potassium [Moles/Vol] 4.6 mmol/L 3.5-5.1 [facility] Sodium [Moles/Vol] 134 mmol/L 136-145 [facility] WBC (Bld) [#/Vol] 9.4 10*3/uL 4.4-11.0 [facility] Blood erythrocytes count (nu mber/volume)Ordered By: Toy Crandall on 01-03-2023 RBC (Bld) [#/Vol] 4.65 10*6/uL 4.6-6.2 [facility] Blood hemoglobin measurement (mass/volume)Ordered By: Toy Crandall on 01-03-2023 Hemoglobin (Bld) [Mass/Vol] 15.2 g/dL 13.0-16.5 [facility] Blood lymphocytes/100 leukoc ytesOrdered By: Toypetros Crandall on 01-03-2023 Lymphocytes/100 WBC (Bld) 13.2 % 19-41 [facility] Blood monocytes/100 leukocyt esOrdered By: Toypetros Crandall on 01-03-2023 Monocytes/100 WBC (Bld) 10.3 % 0-10 [facility] Blood platelet mean volumeOr dered By: Toy Crandall on 01-03-2023 Platelet mean volume (Bld) [Entitic vol] 8.8 fL 6.2-12.0 [facility] Determination of erythrocyte mean corpuscular volume (MCV)Ordered By: [facility] on 01-03-2023 MCV (RBC) [Entitic vol] 94.8 fL 80-94 [facility] Hematocrit Auto (Bld) [Volum e fraction]Ordered By: [facility] on 01-03-2023 Hematocrit (Bld) [Volume fraction] 44.1 % 40-54 [facility] Laboratory - Chemistry and C hemistry - challengeOrdered By: [facility] on 01-03-2023 CO2 [Moles/Vol] 28.0 mmol/L 21.0-32.0 [facility] Urea nitrogen/Creatinine [Mass ratio] 11.9 mg/mg 10-20 [facility] Laboratory - Hematology and Cell countsOrdered By: [facility] on 01-03-2023 Erythrocyte distribution width (RBC) [Entitic vol] 46.6 fL 35.1-43.9 [facility] Erythrocyte distribution width (RBC) [Ratio] 13.5 % 11.6-14.6 [facility] Immature granulocytes/100 WBC (Bld) 0.500 % 0.0-0.9 [facility] Comment on above: IG% - Immature Granu locytes (promyelocytes, myelocytes and metamyelocytes) > 1% indicates that a LEFT SHIFT is Present. MCH (RBC) [Entitic mass] 32.7 pg 27.0-32.0 [facility] Nucleated RBC/100 WBC (Bld) [Ratio] 0 % 0-5 [facility] MCHC Auto (RBC) [Mass/Vol]Or dered By: [facility] on 01-03-2023 MCHC (RBC) [Mass/Vol] 34.5 g/dL 32-36 [facility] No Panel InformationOrdered By: [facility] on 01-03-2023 Troponin I High Sensitivity 8 pg/mL 3.0-78.0 [facility] Comment on above: Please Note: New [place] t Units and Gender Specific Reference Ranges. For more information see Policy Stat Procedure [place] High Sensitivity Troponin (TNIH) and attachments. Estimated GFR (MDRD) Amer 70 mL/min >60 [facility] Comment on above: GFR Calc Estimated GFR (MDRD) Non-Af Amer 58 mL/min >60 [facility] Comment on above: Non- GFR Calc Platelets bldOrdered By: Toy Crandall on 01-03-2023 Platelets (Bld) [#/Vol] 194 10*3/uL 150-450 [facility] Serum or plasma calcium eliseo urement (mass/volume)Ordered By: Toypetros Crandall on 01-03-2023 Calcium [Mass/Vol] 9.2 mg/dL 8.5-10.1 [facility] Serum or plasma creatinine m easurement (mass/volume)Ordered By: Toypetros Crandall on 01-03-2023 Creatinine [Mass/Vol] 1.26 mg/dL 0.70-1.30 [facility] Comment on above: The validity of the calculated GFR & GFRAA in patients over 70 years has not been determined. Clinical correlation is essential. Serum or plasma urea nitroge n measurement (mass/volume)Ordered By: Toypetros Crandall on 01-03-2023 Urea nitrogen [Mass/Vol] 15 mg/dL 7-18 [facility] Thin prep Papanicolaou smear with manual screeningOrdered By: Toypetros Crandall on 01-03-2023 Thin prep Papanicolaou smear with manual screening 3 5-15 [facility] Basophil percentageon 2021 Bilirubin [Mass/Vol] 0.80 mg/dL 0.20-1.00 [facility] Work Phone: Comment on above: For patients on eltr ombopag therapy, use of Dimension [place] TBIL is not recommended. Cholesterol [Mass/Vol] 152 mg/dL <200 [facility] Work Phone: Comment on above: <200 mg/dL Desirable 200-240 mg/dL Borderline >240 mg/dL High Risk Protein [Mass/Vol] 7.1 g/dL 6.4-8.2 [facility] Work Phone: Triglyceride [Mass/Vol] 267 mg/dL <199 [facility] Work Phone: Comment on above: The drugs N-Acetylcy steine and Metamizole may falsely depress this assay.Serum Triglycerides Reference Interval Normal <150 mg/dL Borderline high 150 - 199 mg/dL High 200 - 499 mg/dL Very High > or = 500 mg/dL Direct bilirubinon Bilirubin.direct [Mass/Vol] 0.20 mg/dL 0.00-0.30 [facility] Work Phone: Laboratory - Chemistry and C hemistry - challengeon 02-22-2022 ALP [Catalytic activity/Vol] 93 U/L 45-117 [facility] Work Phone: [phone] ALT [Catalytic activity/Vol] 22 U/L 16-61 [facility] Work Phone: [phone] Globulin (S) [Mass/Vol] 3.7 g/dL 2.2-4.2 [facility] Work Phone: [phone] Serum or plasma albumin eliseo urement (mass/volume)on 02-22-2022 Albumin [Mass/Vol] 3.4 g/dL 3.2-5.0 [facility] Work Phone: [phone] Serum or plasma cholesterol in HDL measurement (mass/volume)on 02-22-2022 Cholesterol in HDL [Mass/Vol] 48 mg/dL >40 [facility] Work Phone: Comment on above: The drugs N-Acetylcy steine and Metamizole may falsely depress this assay. Reference Range HDL <40 mg/dL Low HDL Cholesterol HDL >or= 60 mg/dL High HDL Cholesterol Serum or plasma cholesterol in VLDL measurement (mass/volume)on 02-22-2022 Cholesterol in VLDL [Mass/Vol] 53 mg/dL 5-40 [facility] Work Phone: [phone] Serum or plasma low density lipoprotein (LDL) cholesterol measurement (mass/volume)on 02-22-2022 Cholesterol in LDL [Mass/Vol] 51 mg/dL 0-130 [facility] Work Phone: [phone] Thin prep Papanicolaou smear with manual screeningon 02-22-2022 Thin prep Papanicolaou smear with manual screening 19 U/L 15-37 [facility] Work Phone: [phone] Absolute lymphocyte counton 2021 Lymphocytes Auto (Unsp spec) [#/Vol] 1.55 10*3/uL 0.83-4.51 [facility] Work Phone: Basophil percentageon 2021 Basophils/100 WBC (Bld) 0.3 % 0-1 [facility] Work Phone: Eosinophils/100 WBC (Bld) 0.3 % 0-5 [facility] Work Phone: Neutrophils (Bld) [#/Vol] 11.2 10*3/uL 2.0-7.7 [facility] Work Phone: Neutrophils/100 WBC (Bld) 77.7 % 47-70 [facility] Work Phone: WBC (Bld) [#/Vol] 14.5 10*3/uL 4.4-11.0 [facility] Work Phone: Blood erythrocytes count (nu mber/volume)on 2021 RBC (Bld) [#/Vol] 4.48 10*6/uL 4.6-6.2 [facility] Work Phone: Blood hemoglobin measurement (mass/volume)on 2021 Hemoglobin (Bld) [Mass/Vol] 13.1 g/dL 13.0-16.5 [facility] Work Phone: Blood lymphocytes/100 leukoc yteson 2021 Lymphocytes/100 WBC (Bld) 10.7 % 19-41 [facility] Work Phone: Blood manual differential co mment interpretation (narrative result)on 2021 Manual differential comment Camilo (Bld) [Interp] SCANNED [facility] Work Phone: Comment on above: AUTO DIFF OK Blood monocytes/100 leukocyt eson 2021 Monocytes/100 WBC (Bld) 10.5 % 0-10 [facility] Work Phone: Blood platelet mean volumeon 2021 Platelet mean volume (Bld) [Entitic vol] 8.8 fL 6.2-12.0 [facility] Work Phone: [phone] Determination of erythrocyte mean corpuscular volume (MCV)on 2021 MCV (RBC) [Entitic vol] 89.3 fL 80-94 [facility] Work Phone: [phone] Hematocrit Auto (Bld) [Volum e fraction]on 2021 Hematocrit (Bld) [Volume fraction] 40.0 % 40-54 [facility] Work Phone: [phone] Laboratory - Hematology and Cell countson 2021 Erythrocyte distribution width (RBC) [Entitic vol] 57.0 fL 35.1-43.9 [facility] Work Phone: [phone] Erythrocyte distribution width (RBC) [Ratio] 17.4 % 11.6-14.6 [facility] Work Phone: [phone] Immature granulocytes/100 WBC (Bld) 0.500 % 0.0-0.9 [facility] Work Phone: [phone] Comment on above: IG% - Immature Granu locytes (promyelocytes, myelocytes and metamyelocytes) > 1% indicates that a LEFT SHIFT is Present. MCH (RBC) [Entitic mass] 29.2 pg 27.0-32.0 [facility] Work Phone: [phone] Nucleated RBC/100 WBC (Bld) [Ratio] 0 % 0-5 [facility] Work Phone: [phone] MCHC Auto (RBC) [Mass/Vol]on 2021 MCHC (RBC) [Mass/Vol] 32.8 g/dL 32-36 [facility] Work Phone: [phone] Platelets bldon 2021 Platelets (Bld) [#/Vol] 265 10*3/uL 150-450 [facility] Work Phone: [phone] Absolute lymphocyte counton 08-30-2021 Lymphocytes Auto (Unsp spec) [#/Vol] 1.81 10*3/uL 0.83-4.51 [facility] Work Phone: [phone] Basophil percentageon 2021 Bilirubin [Mass/Vol] 0.50 mg/dL 0.20-1.00 [facility] Work Phone: Comment on above: For patients on eltr ombopag therapy, use of Dimension [place] TBIL is not recommended. Cholesterol [Mass/Vol] 140 mg/dL <200 [facility] Work Phone: Comment on above: <200 mg/dL Desirable 200-240 mg/dL Borderline >240 mg/dL High Risk Protein [Mass/Vol] 6.2 g/dL 6.4-8.2 [facility] Work Phone: [phone] Triglyceride [Mass/Vol] 333 mg/dL <199 [facility] Work Phone: [phone] Comment on above: The drugs N-Acetylcy steine and Metamizole may falsely depress this assay.Serum Triglycerides Reference Interval Normal <150 mg/dL Borderline high 150 - 199 mg/dL High 200 - 499 mg/dL Very High > or = 500 mg/dL Basophils/100 WBC (Bld) 0.4 % 0-1 [facility] Work Phone: Eosinophils/100 WBC (Bld) 0.8 % 0-5 [facility] Work Phone: [phone] Neutrophils (Bld) [#/Vol] 5.6 10*3/uL 2.0-7.7 [facility] Work Phone: [phone] Neutrophils/100 WBC (Bld) 66.7 % 47-70 [facility] Work Phone: [phone] WBC (Bld) [#/Vol] 8.4 10*3/uL 4.4-11.0 [facility] Work Phone: [phone] Blood erythrocytes count (nu mber/volume)on 08-30-2021 RBC (Bld) [#/Vol] 3.66 10*6/uL 4.6-6.2 [facility] Work Phone: [phone] Blood hemoglobin measurement (mass/volume)on 08-30-2021 Hemoglobin (Bld) [Mass/Vol] 10.5 g/dL 13.0-16.5 [facility] Work Phone: Blood lymphocytes/100 leukoc yteson 08-30-2021 Lymphocytes/100 WBC (Bld) 21.5 % 19-41 [facility] Work Phone: Blood monocytes/100 leukocyt eson 08-30-2021 Monocytes/100 WBC (Bld) 10.2 % 0-10 [facility] Work Phone: [phone] Blood platelet mean volumeon 08-30-2021 Platelet mean volume (Bld) [Entitic vol] 9.7 fL 6.2-12.0 [facility] Work Phone: Determination of erythrocyte mean corpuscular volume (MCV)on 08-30-2021 MCV (RBC) [Entitic vol] 89.9 fL 80-94 [facility] Work Phone: Direct bilirubinon Bilirubin.direct [Mass/Vol] 0.11 mg/dL 0.00-0.30 [facility] Work Phone: Hematocrit Auto (Bld) [Volum e fraction]on 08-30-2021 Hematocrit (Bld) [Volume fraction] 32.9 % 40-54 [facility] Work Phone: Hemoglobin in reticulocytes (mass per reticulocyte)on 08-30-2021 Hemoglobin (Reticulocytes) [Entitic mass] 26.1 pg 30-35 [facility] Work Phone: Iron measurement (mass/mass) on 08-30-2021 Iron (Unsp spec) [Mass/Mass] 32 ug/dL 65-175 [facility] Work Phone: Laboratory - Chemistry and C hemistry - challengeon 08-30-2021 ALP [Catalytic activity/Vol] 85 U/L 45-117 [facility] Work Phone: ALT [Catalytic activity/Vol] 15 U/L 16-61 [facility] Work Phone: [phone] Globulin (S) [Mass/Vol] 2.9 g/dL 2.2-4.2 [facility] Work Phone: [phone] Laboratory - Hematology and Cell countson 08-30-2021 Erythrocyte distribution width (RBC) [Entitic vol] 42.7 fL 35.1-43.9 [facility] Work Phone: [phone] Erythrocyte distribution width (RBC) [Ratio] 13.1 % 11.6-14.6 [facility] Work Phone: [phone] Immature granulocytes/100 WBC (Bld) 0.400 % 0.0-0.9 [facility] Work Phone: [phone] Comment on above: IG% - Immature Granu locytes (promyelocytes, myelocytes and metamyelocytes) > 1% indicates that a LEFT SHIFT is Present. MCH (RBC) [Entitic mass] 28.7 pg 27.0-32.0 [facility] Work Phone: [phone] Nucleated RBC/100 WBC (Bld) [Ratio] 0 % 0-5 [facility] Work Phone: [phone] MCHC Auto (RBC) [Mass/Vol]on 08-30-2021 MCHC (RBC) [Mass/Vol] 31.9 g/dL 32-36 [facility] Work Phone: No Panel Informationon 08-30 Immature Reticulocyte Fraction 28.30 % 3.00-15.90 [facility] Work Phone: [phone] Reticulocyte Count 2.10 % 0.5-1.5 [facility] Work Phone: [phone] Total Iron Binding Capacity 359 ug/dL 250-450 [facility] Work Phone: [phone] Platelets bldon 08-30-2021 Platelets (Bld) [#/Vol] 225 10*3/uL 150-450 [facility] Work Phone: Serum or plasma albumin eliseo urement (mass/volume)on 08-30-2021 Albumin [Mass/Vol] 3.3 g/dL 3.2-5.0 [facility] Work Phone: Serum or plasma cholesterol in HDL measurement (mass/volume)on 08-30-2021 Cholesterol in HDL [Mass/Vol] 37 mg/dL >40 [facility] Work Phone: Comment on above: The drugs N-Acetylcy steine and Metamizole may falsely depress this assay. Reference Range HDL <40 mg/dL Low HDL Cholesterol HDL >or= 60 mg/dL High HDL Cholesterol Serum or plasma cholesterol in VLDL measurement (mass/volume)on 08-30-2021 Cholesterol in VLDL [Mass/Vol] 67 mg/dL 5-40 [facility] Work Phone: Serum or plasma ferritin arie surement (mass/volume)on 08-30-2021 Ferritin [Mass/Vol] 15 ng/mL 26-388 [facility] Work Phone: Serum or plasma low density lipoprotein (LDL) cholesterol measurement (mass/volume)on 08-30-2021 Cholesterol in LDL [Mass/Vol] 36 mg/dL 0-130 [facility] Work Phone: Thin prep Papanicolaou smear with manual screeningon 08-30-2021 Thin prep Papanicolaou smear with manual screening 18 U/L 15-37 [facility] Work Phone: Absolute lymphocyte counton 07-19-2021 Lymphocytes Auto (Unsp spec) [#/Vol] 1.37 10*3/uL 0.83-4.51 [facility] Work Phone: Basophil percentageon 2021 Basophils/100 WBC (Bld) 0.2 % 0-1 [facility] Work Phone: [phone] Chloride [Moles/Vol] 105 mmol/L 98-107 [facility] Work Phone: Eosinophils/100 WBC (Bld) 1.2 % 0-5 [facility] Work Phone: Glucose [Mass/Vol] 114 mg/dL 74-106 [facility] Work Phone: Comment on above: Fasting Glucose resu lt from 100 to 125 mg/dL suggests IMPAIRED HOMEOSTASIS per A.D.A. criteria. Neutrophils (Bld) [#/Vol] 7.9 10*3/uL 2.0-7.7 [facility] Work Phone: Neutrophils/100 WBC (Bld) 76.3 % 47-70 [facility] Work Phone: Potassium [Moles/Vol] 4.4 mmol/L 3.5-5.1 [facility]: Sodium [Moles/Vol] 137 mmol/L 136-145 [facility] Work Phone: WBC (Bld) [#/Vol] 10.3 10*3/uL 4.4-11.0 [facility] Work Phone: Blood erythrocytes count (nu mber/volume)on 07-19-2021 RBC (Bld) [#/Vol] 2.95 10*6/uL 4.6-6.2 [facility] Work Phone: Blood hemoglobin measurement (mass/volume)on 07-19-2021 Hemoglobin (Bld) [Mass/Vol] 9.7 g/dL 13.0-16.5 [facility] Work Phone: Blood lymphocytes/100 leukoc yteson 07-19-2021 Lymphocytes/100 WBC (Bld) 13.3 % 19-41 [facility] Work Phone: Blood monocytes/100 leukocyt eson 07-19-2021 Monocytes/100 WBC (Bld) 8.5 % 0-10 [facility] Work Phone: Blood platelet mean volumeon 07-19-2021 Platelet mean volume (Bld) [Entitic vol] 8.9 fL 6.2-12.0 [facility] Work Phone: Determination of erythrocyte mean corpuscular volume (MCV)on 07-19-2021 MCV (RBC) [Entitic vol] 94.6 fL 80-94 [facility] Work Phone: Hematocrit Auto (Bld) [Volum e fraction]on 07-19-2021 Hematocrit (Bld) [Volume fraction] 27.9 % 40-54 [facility] Work Phone: Laboratory - Chemistry and C hemistry - challengeon 07-19-2021 CO2 [Moles/Vol] 29.0 mmol/L 21.0-32.0 [facility] Work Phone: [phone] Lipase [Catalytic activity/Vol] 240 U/L 73-393 [facility] Work Phone: [phone] Urea nitrogen/Creatinine [Mass ratio] 21.4 mg/mg 10-20 [facility] Work Phone: [phone] Laboratory - Hematology and Cell countson 07-19-2021 Erythrocyte distribution width (RBC) [Entitic vol] 50.1 fL 35.1-43.9 [facility] Work Phone: [phone] Erythrocyte distribution width (RBC) [Ratio] 14.7 % 11.6-14.6 [facility] Work Phone: [phone] Immature granulocytes/100 WBC (Bld) 0.500 % 0.0-0.9 [facility] Work Phone: [phone] Comment on above: IG% - Immature Granu locytes (promyelocytes, myelocytes and metamyelocytes) > 1% indicates that a LEFT SHIFT is Present. MCH (RBC) [Entitic mass] 32.9 pg 27.0-32.0 [facility] Work Phone: [phone] Nucleated RBC/100 WBC (Bld) [Ratio] 0 % 0-5 [facility] Work Phone: [phone] MCHC Auto (RBC) [Mass/Vol]on 07-19-2021 MCHC (RBC) [Mass/Vol] 34.8 g/dL 32-36 [facility] Work Phone: [phone] Panel Informationon 07-19 Estimated Creatinine Clearance Calc 52.51 ml/min [facility] Work Phone: [phone] Estimated GFR (MDRD) Amer 76 mL/min >60 [facility] Work Phone: [phone] Comment on above: GFR Calc Estimated GFR (MDRD) Non-Af Amer 63 mL/min >60 [facility] Work Phone: [phone] Comment on above: Non- GFR Calc Troponin I High Sensitivity 8 pg/mL 3.0-78.0 [facility] Work Phone: Comment on above: Please Note: New [place] t Units and Gender Specific Reference Ranges. For more information see Policy Stat Procedure [place] High Sensitivity Troponin (TNIH) and attachments. Platelets bldon 07-19-2021 Platelets (Bld) [#/Vol] 207 10*3/uL 150-450 [facility] Work Phone: Serum or plasma calcium eliseo urement (mass/volume)on 07-19-2021 Calcium [Mass/Vol] 9.6 mg/dL 8.5-10.1 [facility] Work Phone: Serum or plasma creatinine m easurement (mass/volume)on 07-19-2021 Creatinine [Mass/Vol] 1.17 mg/dL 0.70-1.30 [facility] Work Phone: Comment on above: The validity of the calculated GFR & GFRAA in patients over 70 years has not been determined. Clinical correlation is essential. Serum or plasma urea nitroge n measurement (mass/volume)on 07-19-2021 Urea nitrogen [Mass/Vol] 25 mg/dL 7-18 [facility] Work Phone: Thin prep Papanicolaou smear with manual screeningon 07-19-2021 Thin prep Papanicolaou smear with manual screening 3 5-15 [facility] Work Phone: Basophil percentageon 2021 Bilirubin [Mass/Vol] 0.70 mg/dL 0.20-1.00 [facility] Work Phone: Comment on above: For patients on eltr ombopag therapy, use of Dimension [place] TBIL is not recommended. Cholesterol [Mass/Vol] 162 mg/dL <200 [facility] Work Phone: Comment on above: <200 mg/dL Desirable 200-240 mg/dL Borderline >240 mg/dL High Risk Protein [Mass/Vol] 7.3 g/dL 6.4-8.2 [facility] Work Phone: Triglyceride [Mass/Vol] 265 mg/dL [facility] Work Phone: Comment on above: The drugs N-Acetylcy steine and Metamizole may falsely depress this assay.Serum Triglycerides Reference Interval Normal <150 mg/dL Borderline high 150 - 199 mg/dL High 200 - 499 mg/dL Very High > or = 500 mg/dL Direct bilirubinon Bilirubin.direct [Mass/Vol] 0.18 mg/dL 0.00-0.30 [facility] Work Phone: [phone] Laboratory - Chemistry and C hemistry - challengeon 05-20-2021 ALP [Catalytic activity/Vol] 120 U/L 45-117 [facility] Work Phone: [phone] ALT [Catalytic activity/Vol] 16 U/L 16-61 [facility] Work Phone: [phone] Globulin (S) [Mass/Vol] 3.9 g/dL 2.2-4.2 [facility] Work Phone: [phone] Serum or plasma albumin eliseo urement (mass/volume)on 05-20-2021 Albumin [Mass/Vol] 3.4 g/dL 3.2-5.0 [facility] Work Phone: [phone] Serum or plasma cholesterol in HDL measurement (mass/volume)on 05-20-2021 Cholesterol in HDL [Mass/Vol] 43 mg/dL [facility] Work Phone: Comment on above: The drugs N-Acetylcy steine and Metamizole may falsely depress this assay. Reference Range HDL <40 mg/dL Low HDL Cholesterol HDL >or= 60 mg/dL High HDL Cholesterol Serum or plasma cholesterol in VLDL measurement (mass/volume)on 05-20-2021 Cholesterol in VLDL [Mass/Vol] 53 mg/dL 5-40 [facility] Work Phone: [phone] Serum or plasma low density lipoprotein (LDL) cholesterol measurement (mass/volume)on 05-20-2021 Cholesterol in LDL [Mass/Vol] 66 mg/dL 0-130 [facility] Work Phone: [phone] Thin prep Papanicolaou smear with manual screeningon 05-20-2021 Thin prep Papanicolaou smear with manual screening 19 U/L 15-37 [facility] Work Phone: SARS coronavirus RNA [Presen ce] in Unspecified specimen by ELVIRA with probe detectionon 04-22-2021 SARS-CoV RNA ELVIRA+probe Ql (Unsp spec) Not detected Not Detected [facility] Work Phone: Comment on above: This nucleic [...] of in vitro diagnostic tests for detection [id number] virus and/or diagnosis of COVID-19 infectionunder section [...] percentageon 2020 Basophil percentage 10-25 SEEN /hpf [facility] Work Phone: [phone] Bilirubin Test strip Ql (U)o n 04-19-2021 Bilirubin Ql (U) Negative Negative [facility] Work Phone: [phone] Calcium oxalate crystals det ection in urine sediment by light microscopyon 04-19-2021 Calcium oxalate crystals LM Ql (Urine sed) 1+ /hpf [facility] Work Phone: Culture, urineon 04-19-2021 Bacteria identified Cx Nom (U) Positive [facility] Work Phone: [phone] Ketones Test strip Ql (U)on 04-19-2021 Ketones Ql (U) 5 mg/dl Negative [facility] Work Phone: Mucus LM Ql (Urine sed)on Mucus Ql (Urine sed) 0 SEEN /hpf [facility] Work Phone: Nitrite Test strip Ql (U)on 04-19-2021 Nitrite Ql (U) Negative Negative [facility] Work Phone: Protein Test strip Ql (U)on 04-19-2021 Protein Ql (U) 15 mg/dl Negative [facility] Work Phone: Squamous epithelial cells de tection in urine sediment by light microscopyon 04-19-2021 Epithelial cells.squamous LM Ql (Urine sed) 0 SEEN /hpf [facility] Work Phone: Urine blood detectionon 04-01 RBC Ql (U) 10 /ul Negative [facility] Work Phone: RBC Ql (U) 0-5 SEEN /hpf [facility] Work Phone: Urine clarityon 04-19-2021 Clarity (U) Clear Clear [facility] Work Phone: Urine color determinationon 04-19-2021 Color (U) Yellow Yellow [facility] Work Phone: Urine glucose detectionon Glucose Ql (U) Normal mg/dl Normal [facility] Work Phone: Urine leukocyte esterase det ection by dipstickon 04-19-2021 Leukocyte esterase Test strip Ql (U) 25 /ul Negative [facility] Work Phone: Urine pHon 04-19-2021 pH (U) 5.0 [pH] [facility] Work Phone: Urine sediment bacteria coun t by microscopy (number/high power field)on 04-19-2021 Bacteria LM.HPF (Urine sed) [#/Area] RARE /hpf None Seen [facility] Work Phone: Urine specific gravity measu rementon 04-19-2021 Specific gravity (U) [Rel density] 1.025 [facility] Work Phone: Urobilinogen Auto test strip Ql (U)on 04-19-2021 Urobilinogen Ql (U) 1 mg/dl Normal [facility] Work Phone: Absolute lymphocyte counton 04-17-2021 Lymphocytes Auto (Unsp spec) [#/Vol] 1.52 10*3/uL 0.83-4.51 [facility] Work Phone: Basophil percentageon 2020 Eosinophils/100 WBC (Bld) 0.8 % 0-5 [facility] Work Phone: Neutrophils (Bld) [#/Vol] 4.3 10*3/uL 2.0-7.7 [facility] Work Phone: WBC (Bld) [#/Vol] 6.6 10*3/uL 4.4-11.0 [facility] Work Phone: Chloride [Moles/Vol] 103 mmol/L 98-107 [facility] Work Phone: [phone] Glucose [Mass/Vol] 100 mg/dL 74-106 [facility] Work Phone: Comment on above: Fasting Glucose resu lt from 100 to 125 mg/dL suggests IMPAIRED HOMEOSTASIS per A.D.A. criteria.Please note revised GLUCOSE reference range effective 2017. Potassium [Moles/Vol] 4.3 mmol/L 3.5-5.1 [facility] Work Phone: Sodium [Moles/Vol] 138 mmol/L 136-145 [facility] Work Phone: [phone] Blood erythrocytes count (nu mber/volume)on 04-17-2021 RBC (Bld) [#/Vol] 3.98 10*6/uL 4.6-6.2 [facility] Work Phone: Blood hemoglobin measurement (mass/volume)on 04-17-2021 Hemoglobin (Bld) [Mass/Vol] 12.2 g/dL 13.0-16.5 [facility] Work Phone: Blood lymphocytes/100 leukoc yteson 04-17-2021 Lymphocytes/100 WBC (Bld) 23.0 % 19-41 [facility] Work Phone: Blood monocytes/100 leukocyt eson 04-17-2021 Monocytes/100 WBC (Bld) 10.9 % 0-10 [facility] Work Phone: Blood platelet mean volumeon 04-17-2021 Platelet mean volume (Bld) [Entitic vol] 8.7 fL 6.2-12.0 [facility] Work Phone: Determination of erythrocyte mean corpuscular volume (MCV)on 04-17-2021 MCV (RBC) [Entitic vol] 96.7 fL 80-94 [facility] Work Phone: Hematocrit Auto (Bld) [Volum e fraction]on 04-17-2021 Hematocrit (Bld) [Volume fraction] 38.5 % 40-54 [facility] Work Phone: Laboratory - Chemistry and C hemistry - challengeon 04-17-2021 CO2 [Moles/Vol] 27.0 mmol/L 21.0-32.0 [facility] Work Phone: Urea nitrogen/Creatinine [Mass ratio] 12.6 mg/mg 10-20 [facility] Work Phone: Laboratory - Hematology and Cell countson 04-17-2021 Basophils/100 WBC (Unsp spec) 0.5 % 0-1 [facility] Work Phone: Erythrocyte distribution width (RBC) [Entitic vol] 52.7 fL 35.1-43.9 [facility] Work Phone: Erythrocyte distribution width (RBC) [Ratio] 14.8 % 11.6-14.6 [facility] Work Phone: Immature granulocytes/100 WBC (Bld) 0.300 % 0.0-0.9 [facility] Work Phone: Comment on above: IG% - Immature Granu locytes (promyelocytes, myelocytes and metamyelocytes) > 1% indicates that a LEFT SHIFT is Present. MCH (RBC) [Entitic mass] 30.7 pg 27.0-32.0 [facility] Work Phone: Neutrophils/100 WBC (Bld) 64.5 % 47-70 [facility] Work Phone: Nucleated RBC/100 WBC (Bld) [Ratio] 0 % 0-5 [facility] Work Phone: MCHC Auto (RBC) [Mass/Vol]on 04-17-2021 MCHC (RBC) [Mass/Vol] 31.7 g/dL 32-36 [facility] Work Phone: No Panel Informationon 04-17 Estimated Creatinine Clearance Calc 55.35 ml/min [facility] Work Phone: Estimated GFR (MDRD) Amer 81 mL/min >60 [facility] Work Phone: Comment on above: GFR Calc Estimated GFR (MDRD) Non-Af Amer 67 mL/min >60 [facility] Work Phone: Comment on above: Non- GFR Calc Platelets bldon 04-17-2021 Platelets (Bld) [#/Vol] 295 10*3/uL 150-450 [facility] Work Phone: Serum or plasma calcium eliseo urement (mass/volume)on 04-17-2021 Calcium [Mass/Vol] 9.8 mg/dL 8.5-10.1 [facility] Work Phone: Serum or plasma creatinine m easurement (mass/volume)on 04-17-2021 Creatinine [Mass/Vol] 1.11 mg/dL 0.70-1.30 [facility] Work Phone: Comment on above: The validity of the calculated GFR & GFRAA in patients over 70 years has not been determined. Clinical correlation is essential. Serum or plasma urea nitroge n measurement (mass/volume)on 04-17-2021 Urea nitrogen [Mass/Vol] 14 mg/dL 11-15 [facility] Work Phone: Thin prep Papanicolaou smear with manual screeningon 04-17-2021 Thin prep Papanicolaou smear with manual screening 8 5-15 [facility] Work Phone: [phone] Absolute lymphocyte counton 03-26-2021 Lymphocytes Auto (Unsp spec) [#/Vol] 1.45 10*3/uL 0.83-4.51 [facility] Work Phone: Basophil percentageon 2020 Chloride [Moles/Vol] 97 mmol/L 98-107 [facility] Work Phone: Glucose [Mass/Vol] 156 mg/dL 74-106 [facility] Work Phone: Comment on above: Fasting Glucose resu lt greater than or equal to 126 mg/dL suggests DIABETES MELLITUS per A.D.A. criteria.Please note revised GLUCOSE reference range effective 2017. Potassium [Moles/Vol] 4.6 mmol/L 3.5-5.1 [facility] Work Phone: Sodium [Moles/Vol] 131 mmol/L 136-145 [facility] Work Phone: Eosinophils/100 WBC (Bld) 0.4 % 0-5 [facility] Work Phone: Neutrophils (Bld) [#/Vol] 10.1 10*3/uL 2.0-7.7 [facility] Work Phone: WBC (Bld) [#/Vol] 13.5 10*3/uL 4.4-11.0 [facility] Work Phone: Blood erythrocytes count (nu mber/volume)on 03-26-2021 RBC (Bld) [#/Vol] 2.94 10*6/uL 4.6-6.2 [facility] Work Phone: Blood hemoglobin measurement (mass/volume)on 03-26-2021 Hemoglobin (Bld) [Mass/Vol] 9.4 g/dL 13.0-16.5 [facility] Work Phone: Blood lymphocytes/100 leukoc yteson 03-26-2021 Lymphocytes/100 WBC (Bld) 10.7 % 19-41 [facility] Work Phone: Blood manual differential co mment interpretation (narrative result)on 03-26-2021 Manual differential comment Camilo (Bld) [Interp] SCANNED [facility] Work Phone: Blood monocytes/100 leukocyt eson 03-26-2021 Monocytes/100 WBC (Bld) 13.3 % 0-10 [facility] Work Phone: Blood platelet mean volumeon 03-26-2021 Platelet mean volume (Bld) [Entitic vol] 9.0 fL 6.2-12.0 [facility] Work Phone: Determination of erythrocyte mean corpuscular volume (MCV)on 03-26-2021 MCV (RBC) [Entitic vol] 91.2 fL 80-94 [facility] Work Phone: Hematocrit Auto (Bld) [Volum e fraction]on 03-26-2021 Hematocrit (Bld) [Volume fraction] 26.8 % 40-54 [facility] Work Phone: Laboratory - Chemistry and C hemistry - challengeon 03-26-2021 CO2 [Moles/Vol] 24.0 mmol/L 21.0-32.0 [facility] Work Phone: Urea nitrogen/Creatinine [Mass ratio] 19.4 mg/mg 10-20 [facility] Work Phone: Laboratory - Hematology and Cell countson 03-26-2021 Basophils/100 WBC (Unsp spec) 0.1 % 0-1 [facility] Work Phone: Erythrocyte distribution width (RBC) [Entitic vol] 45.6 fL 35.1-43.9 [facility] Work Phone: [phone] Erythrocyte distribution width (RBC) [Ratio] 13.8 % 11.6-14.6 [facility] Work Phone: Immature granulocytes/100 WBC (Bld) 0.700 % 0.0-0.9 [facility] Work Phone: Comment on above: IG% - Immature Granu locytes (promyelocytes, myelocytes and metamyelocytes) > 1% indicates that a LEFT SHIFT is Present. MCH (RBC) [Entitic mass] 32.0 pg 27.0-32.0 [facility] Work Phone: Neutrophils/100 WBC (Bld) 74.8 % 47-70 [facility] Work Phone: Nucleated RBC/100 WBC (Bld) [Ratio] 0 % 0-5 [facility] Work Phone: MCHC Auto (RBC) [Mass/Vol]on 03-26-2021 MCHC (RBC) [Mass/Vol] 35.1 g/dL 32-36 [facility] Work Phone: No Panel Informationon 03-26 Estimated Creatinine Clearance Calc 45.85 ml/min [facility] Work Phone: Estimated GFR (MDRD) Amer 65 mL/min >60 [facility] Work Phone: Comment on above: GFR Calc Estimated GFR (MDRD) Non-Af Amer 54 mL/min >60 [facility] Work Phone: Comment on above: Non- GFR Calc Platelets bldon 03-26-2021 Platelets (Bld) [#/Vol] 153 10*3/uL 150-450 [facility] Work Phone: [phone] Review by pathologiston 03-02 Pathologist review Camilo (Unsp spec) [Interp] Reviewed [facility] Work Phone: Comment on above: Previous reported re sult: Marisel zabala Edited by: REYNALDO on 03/26/21:1537Neutrophilic leukocytosis.Normocytic anemia.Clinical correlation necessary.Pranay Rojas M.D. 03/26/21 AMENDED REPORT 03/26/21 1537 PATH REV previously reported as: Marisel zabala Serum or plasma calcium eliseo urement (mass/volume)on 03-26-2021 Calcium [Mass/Vol] 8.7 mg/dL 8.5-10.1 [facility] Work Phone: Serum or plasma cortisol arie surement (mass/volume)on 03-26-2021 Cortisol [Mass/Vol] 25.80 ug/dL 3.44-22.45 [facility] Work Phone: Comment on above: Adult (AM) 5.27 - 22 .45 ug/dL Adult (PM) 3.44 - 16.76 ug/dLPlease note revised CORTISOL reference range effective 2019. Serum or plasma creatinine m easurement (mass/volume)on 03-26-2021 Creatinine [Mass/Vol] 1.34 mg/dL 0.70-1.30 [facility] Work Phone: Comment on above: The validity of the calculated GFR & GFRAA in patients over 70 years has not been determined. Clinical correlation is essential. Serum or plasma urea nitroge n measurement (mass/volume)on 03-26-2021 Urea nitrogen [Mass/Vol] 26 mg/dL 7-18 [facility] Work Phone: Thin prep Papanicolaou smear with manual screeningon 03-26-2021 Thin prep Papanicolaou smear with manual screening 10 5-15 [facility] Work Phone: Thin prep Papanicolaou smear with manual screening 279 mOsm/KG 280-301 [facility] Work Phone: Glucose Glucometer (BldC) [M ass/Vol]on 03-25-2021 Glucose [Mass/Vol] 121 mg/dL 70-110 [facility] Work Phone: Comment on above: MANAGEMENT OF PATIEN T CARE PER NURSING PROTOCOL Laboratory - Chemistry and C hemistry - challengeon 03-25-2021 Sodium (U) [Moles/Vol] 9 mmol/L Not Establ. [facility] Work Phone: No Panel Informationon 03-25 Thyroid Stimulating Hormone (TSH) 0.95 uIU/mL 0.358-3.74 [facility] Work Phone: Urine osmolality measurement on 03-25-2021 Osmolality (U) [Osmolality] 192 mOsm/KG [facility] Work Phone: Comment on above: Normal Urine Referen ce Ranges Random: 50 - 1200 mOsm/kg H20 depending on fluid intake Random: >850 mOsm/kg after 12 hour fluid restriction 24 hour: ~300 - 900 mOsm/kg H2O Blood platelet adequacy dete ction by light microscopyon 03-24-2021 Platelets LM Ql (Bld) ADEQUATE ADEQ [facility] Work Phone: [phone] Hypochromatic red blood cell detectionon 03-24-2021 Hypochromia Ql (Bld) RARE [facility] Work Phone: No Panel Informationon 03-23 Vitamin D 25-Hydroxy 38.4 ng/mL [facility] Work Phone: Comment on above: Vitamin D 25(OH) Sta tus Range Deficiency <20 ng/mL (50nmol/L) Insufficiency 20 - 30 ng/mL (50 - 75 nmol/L) Sufficiency 30 - 100 ng/mL (75 - 250 nmol/L) Toxicity >100 ng/mL (>250 nmol/L) Basophil percentageon 2020 Bilirubin [Mass/Vol] 0.60 mg/dL 0.20-1.00 [facility] Work Phone: Comment on above: For patients on eltr ombopag therapy, use of Dimension [place] TBIL is not recommended. Protein [Mass/Vol] 6.9 g/dL 6.4-8.2 [facility] Work Phone: INR in Blood by Coagulation assayon 03-22-2021 INR Coag (Bld) [Relative time] 1.0 {INR} [facility] Work Phone: Laboratory - Chemistry and C hemistry - challengeon 03-22-2021 ALP [Catalytic activity/Vol] 82 U/L 45-117 [facility] Work Phone: ALT [Catalytic activity/Vol] 21 U/L 16-61 [facility] Work Phone: Globulin (S) [Mass/Vol] 3.8 g/dL 2.2-4.2 [facility] Work Phone: Laboratory - Coagulationon 1 05-22-2020 aPTT Coag (Bld) [Time] 32.3 s 24.1-36.2 [facility] Work Phone: PT Coag (PPP) [Time] 12.7 s 11.7-14.9 [facility] Work Phone: No Panel Informationon 03-22 SARS-CoV-2 Antigen (Rapid) [facility] Work Phone: Serum or plasma albumin eliseo urement (mass/volume)on 03-22-2021 Albumin [Mass/Vol] 3.1 g/dL 3.2-5.0 [facility] Work Phone: Serum or plasma albumin/glob ulin mass ratioon 03-22-2021 Albumin/Globulin [Mass ratio] 0.8 {ratio} 0.9-2.4 [facility] Work Phone: Thin prep Papanicolaou smear with manual screeningon 03-22-2021 Thin prep Papanicolaou smear with manual screening 22 U/L 15-37 [facility] Work Phone: CNPNon 01-22-2021 [employer] [facility] ([facility] RANCHO MULLER ([id number]) 1935 M Date Time Provider Department 01/22/21 ALEXA SCHAEFER During your visit today, we recorded the following information about you: Alexa Schaefer APRN.SPRAY PILOT 01/22/2021 9:11 AM Signed Post-op carotid US [...] to repeat in 1 year with testing @[place]. 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] 06/12/2005 [...] 10-30-2020 CNOV Office Visit (KRISTIACC) RANCHO MULLER ([id number]) 1935 M Date Time Provider Department 10/30/20 10:00 AM ALEXA SCHAEFER During your visit today, we recorded the following information about you: Pulse Blood pressure Weight Height 64/minute 124/64 97.5 kg 1.829 m Alexa Schaefer APRN.REHAN 10/30/2020 1:11 PM Signed Rancoh Muller 85 year old male S/P Left [...] is currently taking aspirin: Yes Alexa Schaefer APRN.SPRAY PILOT Referring Provider: MARIELA KING [[id number]] Allergies As of Date: 10/30/2020 Noted Allergy [...] [Z98.890] Order(s): CAROTID ARTERIES [facility] [[id number]] Order #: [id number] FUTURE Prescriptions as of 10/30/2020 - vitamin [...] Date 10/30/2020 Noted Resolved DISC DISPLACEMENT NOS [[id number]] 06/12/2005 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.10] 06/12/2005 [...] Status:Closed by CLAUDIA ARELLANO on 10/30/20 Normal [facility] ANES POSTPROC EVALon 021 ANES POSTPROC EVAL HNO ID: [id number] Author: Rusty Gomez MD Service: Anesthesiology Author Type: Physician Type: Anesthesia Postprocedure Evaluation Filed: 10/01/2020 7:55 AM Note Text: POST ANESTHESIA EVALUATION NOTE : 1935 Procedure Summary Date: 09/30/20 Room / Location: [place] [address] [place] [address] OR Anesthesia Start: 914 Anesthesia Stop: 1209 [...] October 01, 2020 TIME: 7:54 AM CSN: [id number] Normal [facility] Basic metabolic 2000 panelon 10-01-2020 Anion gap [Moles/Vol] 9 mmol/L Normal 9-18 [facility] Comment on above: Order Comment: Speci men Type: BLOOD SPECIMEN Performed By: #### 2 4321-2, , 2776-05 #### [facility] CLIA [id number] [address] [place] [address] Calcium [Mass/Vol] 8.9 mg/dL Normal 8.5-10.2 [facility] Comment on above: Order Comment: Speci men Type: BLOOD SPECIMEN Performed By: #### 2 4321-2, , 2776-05 #### [facility] CLIA [id number] [address] [place] [address] Chloride [Moles/Vol] 101 mmol/L Normal 97-105 [facility] Comment on above: Order Comment: Speci men Type: BLOOD SPECIMEN Performed By: #### 2 4321-2, , 2776-05 #### [facility] CLIA [id number] [address] [place] [address] CO2 [Moles/Vol] 24 mmol/L Normal 22-30 [facility] Comment on above: Order Comment: Speci men Type: BLOOD SPECIMEN Performed By: #### 2 4321-2, , 2776-05 #### [facility] CLIA [id number] [address] [place] [address] Creatinine [Mass/Vol] 0.98 mg/dL Normal 0.73-1.22 [facility] Comment on above: Order Comment: Speci men Type: BLOOD SPECIMEN Performed By: #### 2 4321-2, , 2776-05 #### [facility] CLIA [id number] [address] [place] [address] GFR/1.73 sq M.predicted MDRD (S/P/Bld) [Vol rate/Area] mL/min/{1.73_m2} Normal [facility] Comment on above: Order Comment: Speci men [...] By: #### 2 4321-2, , 2776-05 #### [facility] CLIA [id number] [address] [place] [address] Glucose [Mass/Vol] 140 mg/dL High 74-99 [facility] Comment on above: Order Comment: Speci men Type: BLOOD SPECIMEN Result Comment: The [place] Diabetes Association (ADA) provides guidance for cutoff [...] Standards of Medical Care in Diabetes 2016, [place] [employer]. Diabetes Care. 2016.39(Suppl 1). Performed By: #### 2 1-2, , 2776-05 #### [facility] CLIA [id number] [address] [place] [address] Potassium [Moles/Vol] 4.8 mmol/L Normal 3.7-5.1 [facility] Comment on above: Order Comment: Speci men Type: BLOOD SPECIMEN Performed By: #### 2 1-2, , 2776-05 #### [facility] CLIA [id number] [address] [place] [address] Sodium [Moles/Vol] 134 mmol/L Low 136-144 [facility] Comment on above: Order Comment: Speci men Type: BLOOD SPECIMEN Performed By: #### 2 1-2, , 2776-05 #### [facility] CLIA [id number] [address] [place] [address] Urea nitrogen [Mass/Vol] 15 mg/dL Normal 9-24 [facility] Comment on above: Order Comment: Speci men Type: BLOOD SPECIMEN Performed By: #### 2 4321-2, , 2776-05 #### [facility] CLIA [id number] [address] [place] [address] CBC panel Auto (Bld)on 10-01 Erythrocyte distribution width (RBC) [Ratio] 13.6 % Normal 11.5-15.0 [facility] Comment on above: Order Comment: Speci men Type: BLOOD SPECIMEN Performed By: #### 2 4320-2, , 2776-05 #### [facility] CLIA [id number] [address] [place] [address] Hematocrit (Bld) [Volume fraction] 37.5 % Low 39.0-51.0 [facility] Comment on above: Order Comment: Speci men Type: BLOOD SPECIMEN Performed By: #### 2 4320-2, , 2776-05 #### [facility] CLIA [id number] [address] [place] [address] Hemoglobin (Bld) [Mass/Vol] 12.6 g/dL Low 13.0-17.0 [facility] Comment on above: Order Comment: Speci men Type: BLOOD SPECIMEN Performed By: #### 2 1-2, , 2776-05 #### [facility] CLIA [id number] [address] [place] [address] MCH (RBC) [Entitic mass] 31.0 pg Normal 26.0-34.0 [facility] Comment on above: Order Comment: Speci men Type: BLOOD SPECIMEN Performed By: #### 2 1-2, , 2776-05 #### [facility] CLIA [id number] [address] [place] [address] MCHC (RBC) [Mass/Vol] 33.6 g/dL Normal 30.5-36.0 [facility] Comment on above: Order Comment: Speci men Type: BLOOD SPECIMEN Performed By: #### 2 4321-2, , 2776-05 #### [facility] CLIA [id number] [address] [place] [address] MCV (RBC) [Entitic vol] 92.1 fL Normal 80.0-100.0 [facility] Comment on above: Order Comment: Speci men Type: BLOOD SPECIMEN Performed By: #### 2 4321-2, , 2776-05 #### [facility] CLIA [id number] [address] [place] [address] Nucleated RBC (Bld) [#/Vol] 10*3/uL Normal <0.01 [facility] Comment on above: Order Comment: Speci men Type: BLOOD SPECIMEN Performed By: #### 2 4321-2, , 2776-05 #### [facility] CLIA [id number] [address] [place] [address] Platelet mean volume (Bld) [Entitic vol] 9.2 fL Normal 9.0-12.7 [facility] Comment on above: Order Comment: Speci men Type: BLOOD SPECIMEN Performed By: #### 2 1-2, , 2776-05 #### [facility] CLIA [id number] [address] [place] [address] Platelets (Bld) [#/Vol] 193 10*3/uL Normal 150-400 [facility] Comment on above: Order Comment: Speci men Type: BLOOD SPECIMEN Performed By: #### 2 4321-2, , 2776-05 #### [facility] CLIA [id number] [address] [place] [address] RBC (Bld) [#/Vol] 4.07 10*6/uL Low 4.20-6.00 [facility] Comment on above: Order Comment: Speci men Type: BLOOD SPECIMEN Performed By: #### 2 4321-2, , 2776-05 #### [facility] CLIA [id number] [address] [place] [address] WBC (Bld) [#/Vol] 17.53 10*3/uL High 3.70-11.00 [facility] Comment on above: Order Comment: Speci men Type: BLOOD SPECIMEN Performed By: #### 2 4321-2, 86315-5, 2777-1 #### [facility] CLIA [id number] [address] [place] [id number] CNDSon 10-01-2020 CNDS HNO ID: [id number] Author: Eber Allison DO Service: General Surgery [...] you become constipated, you may use any opjc-uae-dzasayq treatment such as Milk of Magnesia, Sennakot, [...] call for appointment?: Yes Liliya Mares MD [phone] [address] [facility] [address] REPLACED BY [facility] [address] PCP Requested Referral Additional Provider to Provider Information: Active Problems: Carotid stenosis Resolved Problems: * No resolved hospital problems. * Treatment Team: Attending Provider: Liliya Mares MD FOLLOW-UP APPOINTMENTS ALREADY SCHEDULED WITH A [facility] PROVIDER: Future Appointments Date Time Provider Department Center 10/30/2020 10:00 AM Alexa Schaefer APRN.SPRAY PILOT [facility] Allergen Reactions - Penicillins Rash [...] AANDOx3, CN (more content not included)... Normal [facility] Magnesium SerPl-mCncon 10-01 Magnesium [Mass/Vol] 1.8 mg/dL Normal 1.7-2.3 [facility] Comment on above: Order Comment: Speci men Type: BLOOD SPECIMEN Performed By: #### 2 4321-2, 28524-3, 2777-1 #### [facility] CLIA [id number] [address] [place] [address] OPERATIVE NOon 10-01-2020 OPERATIVE NO HNO ID: [id number] Author: Liliya Mares MD Service: Vascular Surgery Author Type: Physician Type: Operative Report Filed: 10/01/2020 4:14 PM Note Text: [facility] - Operative Report RANCHO MULLER : 1935 AGE: 84. SEX: M PATIENT TYPE: I HOSP SVC: MIKI LOCATION: [facility] ATTENDING PHYSICIAN: LILIYA MARES CSN NUMBER: [id number] DATE OF SURGERY/PROCEDURE: 09/30/2020 INCISION/PROCEDURE START TIME: 9:59 AM INCISION CLOSE/PROCEDURE END TIME: 11:32 AM PREOPERATIVE DIAGNOSIS: Carotid stenosis. POSTOPERATIVE DIAGNOSIS: Carotid stenosis. SURGEON: Liliya Mares MD OIL BURNER TECHNICIAN: Correctional Corporal: Fermin Cifuentes SA SURGERY/PROCEDURE: Right carotid endarterectomy. [...] Recovery in stable condition. Liliya Mares MD LM:[id number] /[id number] [facility] Phosphate SerPl-mCncon 10-01 Phosphate [Mass/Vol] 3.4 mg/dL Normal 2.7-4.8 [facility] Comment on above: Order Comment: Speci men Type: BLOOD SPECIMEN Performed By: #### 2 4321-2, 12309-4, 2777-1 #### [facility] CLIA [id number] [address] [place] [address] ANES PRE-OPon 09-30-2020 ANES PRE-OP HNO ID: [id number] Author: Rusty Gomez MD Service: Anesthesiology Author [...] Coronary atherosclerosis of unspecified type of vessel, [place] or graft (+) HTN (hypertension) (+) Left [...] within 48 hours of Surgery/Procedure. SIGNATURE: Rusty Gomze MD PATIENT NAME: Rancho Muller DATE: September 30, 2020 TIME: 8:49 AM CSN: [id number] [facility] BRIEF OP NOTon 09-30-2020 BRIEF OP NOT HNO ID: [id number] Author: Eber Allison DO Service: General Surgery [...] BRIEF OPERATIVE / PROCEDURE NOTE LOG ID: [id number] SURGERY/PROCEDURE DATE: 09/30/2020 INCISION/PROCEDURE START TIME: 9:59 AM INCISION CLOSE/PROCEDURE END TIME: 11:32 AM SURGEON(S)/PROCEDURALI ST(S) AND OIL BURNER TECHNICIAN(S): Surgeon(s) and Role: * Liliya Mares MD - Primary Correctional Corporal: Fermin Cifuentes SA SURGERY/PROCEDURE(S): R carotid endarterectomy ANESTHESIA: General FINDINGS: atherosclerotic plaque at the carotid bulb ESTIMATED BLOOD LOSS: 155 mls SPECIMENS: atherosclerotic plaque COMPLICATIONS: None PRE-OP/PRE-PROCEDURE DIAGNOSIS: internal carotid atherosclerosis, carotid stenosis POST-OP/POST-PROCEDURE DIAGNOSIS: Same as Preop SIGNATURE: Eber Allison DO PATIENT NAME: Rancho Muller DATE: September 30, 2020 TIME: 1:07 PM Normal [facility] Basic metabolic 2000 panelon 09-30-2020 Anion gap [Moles/Vol] 7 mmol/L Low 9-18 [facility] Comment on above: Order Comment: Speci men Type: BLOOD SPECIMEN Performed By: #### 2 4321-2 #### [facility] CLIA [id number] [address] [place] [address] Calcium [Mass/Vol] 9.2 mg/dL Normal 8.5-10.2 [facility] Comment on above: Order Comment: Speci men Type: BLOOD SPECIMEN Performed By: #### 2 4321-2 #### [facility] CLIA [id number] [address] [place] [address] Chloride [Moles/Vol] 105 mmol/L Normal 97-105 [facility] Comment on above: Order Comment: Speci men Type: BLOOD SPECIMEN Performed By: #### 2 4321-2 #### [facility] CLIA [id number] [address] [place] [address] CO2 [Moles/Vol] 27 mmol/L Normal 22-30 [facility] Comment on above: Order Comment: Speci men Type: BLOOD SPECIMEN Performed By: #### 2 4321-2 #### [facility] CLIA [id number] [address] [place] [address] Creatinine [Mass/Vol] 0.98 mg/dL Normal 0.73-1.22 [facility] Comment on above: Order Comment: Speci men Type: BLOOD SPECIMEN Performed By: #### 2 4321-2 #### [facility] CLIA [id number] [address] [place] [address] GFR/1.73 sq M.predicted MDRD (S/P/Bld) [Vol rate/Area] mL/min/{1.73_m2} Normal [facility] Comment on above: Order Comment: Speci men [...] GFR. Performed By: #### 2 4321-2 #### [facility] CLIA [id number] [address] [place] [address] Glucose [Mass/Vol] 158 mg/dL High 74-99 [facility] Comment on above: Order Comment: Speci men Type: BLOOD SPECIMEN Result Comment: The [place] Diabetes [employer] (ADA) provides guidance for cutoff [...] Standards of Medical Care in Diabetes 2016, [place] [employer]. Diabetes Care. 2016.39(Suppl 1). Performed By: #### 2 4321-2 #### [facility] CLIA [id number] [address] [place] [address] Potassium [Moles/Vol] 4.3 mmol/L Normal 3.7-5.1 [facility] Comment on above: Order Comment: Speci men Type: BLOOD SPECIMEN Performed By: #### 2 4321-2 #### [facility] CLIA [id number] [address] [place] [address] Sodium [Moles/Vol] 139 mmol/L Normal 136-144 [facility] Comment on above: Order Comment: Speci men Type: BLOOD SPECIMEN Performed By: #### 2 4321-2 #### [facility] CLIA [id number] [address] [place] [address] Urea nitrogen [Mass/Vol] 15 mg/dL Normal 9-24 [facility] Comment on above: Order Comment: Speci men Type: BLOOD SPECIMEN Performed By: #### 2 4321-2 #### [facility] CLIA [id number] [address] [place] [address] CBC W Auto Differential pane l (Bld)on 09-30-2020 Basophils (Bld) [#/Vol] 0.06 10*3/uL Normal <0.11 [facility] Comment on above: Order Comment: Speci men Type: BLOOD SPECIMEN Performed By: #### 2 4321-2, , 2776-05 #### [facility] CLIA [id number] [address] [place] [address] Basophils/100 WBC (Bld) 0.4 % Normal [facility] Comment on above: Order Comment: Speci men Type: BLOOD SPECIMEN Performed By: #### 2 4321-2, , 2776-05 #### [facility] CLIA [id number] [address] [place] [address] Differential cell count method Nom (Bld) Auto Normal [facility] Comment on above: Order Comment: Speci men Type: BLOOD SPECIMEN Performed By: #### 2 4321-2, , 2776-05 #### [facility] CLIA [id number] [address] [place] [address] Eosinophils (Bld) [#/Vol] 0.07 10*3/uL Normal <0.46 [facility] Comment on above: Order Comment: Speci men Type: BLOOD SPECIMEN Performed By: #### 2 4321-2, , 2776-05 #### [facility] CLIA [id number] [address] [place] [address] Eosinophils/100 WBC (Bld) 0.5 % Normal [facility] Comment on above: Order Comment: Speci men Type: BLOOD SPECIMEN Performed By: #### 2 4321-2, , 2776-05 #### [facility] CLIA [id number] [address] [place] [address] Erythrocyte distribution width (RBC) [Ratio] 13.8 % Normal 11.5-15.0 [facility] Comment on above: Order Comment: Speci men Type: BLOOD SPECIMEN Performed By: #### 2 4321-2, , 2776-05 #### [facility] CLIA [id number] [address] [place] [address] Hematocrit (Bld) [Volume fraction] 42.8 % Normal 39.0-51.0 [facility] Comment on above: Order Comment: Speci men Type: BLOOD SPECIMEN Performed By: #### 2 4321-2, , 2776-05 #### [facility] CLIA [id number] [address] [place] [address] Hemoglobin (Bld) [Mass/Vol] 14.7 g/dL Normal 13.0-17.0 [facility] Comment on above: Order Comment: Speci men Type: BLOOD SPECIMEN Performed By: #### 2 4321-2, , 2776-05 #### [facility] CLIA [id number] [address] [place] [address] IMMATURE GRAN % 0.6 % Normal [facility] Comment on above: Order Comment: Speci men Type: BLOOD SPECIMEN Performed By: #### 2 4321-2, , 2776-05 #### [facility] CLIA [id number] [address] [place] [address] IMMATURE GRAN ABS 0.09 k/uL Normal <0.10 [facility] Comment on above: Order Comment: Speci men Type: BLOOD SPECIMEN Performed By: #### 2 4321-2, , 2776-05 #### [facility] CLIA [id number] [address] [place] [address] Lymphocytes (Bld) [#/Vol] 3.17 10*3/uL Normal 1.00-4.00 [facility] Comment on above: Order Comment: Speci men Type: BLOOD SPECIMEN Performed By: #### 2 4321-2, , 2776-05 #### [facility] CLIA [id number] [address] [place] [address] Lymphocytes/100 WBC (Bld) 22.9 % Normal [facility] Comment on above: Order Comment: Speci men Type: BLOOD SPECIMEN Performed By: #### 2 4321-2, , 2776-05 #### [facility] CLIA [id number] [address] [place] [address] MCH (RBC) [Entitic mass] 31.5 pg Normal 26.0-34.0 [facility] Comment on above: Order Comment: Speci men Type: BLOOD SPECIMEN Performed By: #### 2 4321-2, , 2776-05 #### [facility] CLIA [id number] [address] [place] [address] MCHC (RBC) [Mass/Vol] 34.3 g/dL Normal 30.5-36.0 [facility] Comment on above: Order Comment: Speci men Type: BLOOD SPECIMEN Performed By: #### 2 4320-2, , 2776-05 #### [facility] CLIA [id number] [address] [place] [address] MCV (RBC) [Entitic vol] 91.8 fL Normal 80.0-100.0 [facility] Comment on above: Order Comment: Speci men Type: BLOOD SPECIMEN Performed By: #### 2 4320-2, , 2776-05 #### [facility] CLIA [id number] [address] [place] [address] Monocytes (Bld) [#/Vol] 0.83 10*3/uL Normal <0.87 [facility] Comment on above: Order Comment: Speci men Type: BLOOD SPECIMEN Performed By: #### 2 1-2, , 2776-05 #### [facility] CLIA [id number] [address] [place] [address] Monocytes/100 WBC (Bld) 6.0 % Normal [facility] Comment on above: Order Comment: Speci men Type: BLOOD SPECIMEN Performed By: #### 2 1-2, , 2776-05 #### [facility] CLIA [id number] [address] [place] [address] Neutrophils (Bld) [#/Vol] 9.63 10*3/uL High 1.45-7.50 [facility] Comment on above: Order Comment: Speci men Type: BLOOD SPECIMEN Performed By: #### 2 4321-2, , 2776-05 #### [facility] CLIA [id number] [address] [place] [address] Neutrophils/100 WBC (Bld) 69.6 % Normal [facility] Comment on above: Order Comment: Speci men Type: BLOOD SPECIMEN Performed By: #### 2 4321-2, , 2776-05 #### [facility] CLIA [id number] [address] [place] [address] Nucleated RBC (Bld) [#/Vol] 10*3/uL Normal <0.01 [facility] Comment on above: Order Comment: Speci men Type: BLOOD SPECIMEN Performed By: #### 2 4321-2, , 2776-05 #### [facility] CLIA [id number] [address] [place] [address] Nucleated RBC/100 WBC (Bld) [Ratio] 0.0 /100 WBC Normal 0.0 [facility] Comment on above: Order Comment: Speci men Type: BLOOD SPECIMEN Performed By: #### 2 1-2, , 2776-05 #### [facility] CLIA [id number] [address] [place] [address] Platelet mean volume (Bld) [Entitic vol] 8.8 fL Low 9.0-12.7 [facility] Comment on above: Order Comment: Speci men Type: BLOOD SPECIMEN Performed By: #### 2 4321-2, , 2776-05 #### [facility] CLIA [id number] [address] [place] [address] Platelets (Bld) [#/Vol] 219 10*3/uL Normal 150-400 [facility] Comment on above: Order Comment: Speci men Type: BLOOD SPECIMEN Performed By: #### 2 4321-2, , 2776-05 #### [facility] CLIA [id number] [address] [place] [address] RBC (Bld) [#/Vol] 4.66 10*6/uL Normal 4.20-6.00 [facility] Comment on above: Order Comment: Speci men Type: BLOOD SPECIMEN Performed By: #### 2 4321-2, 02495-1, 7-1 #### [facility] CLIA [id number] [address] [place] [address] WBC (Bld) [#/Vol] 13.85 10*3/uL High 3.70-11.00 [facility] Comment on above: Order Comment: Speci men Type: BLOOD SPECIMEN Performed By: #### 2 4321-2, 04994-2, 2776- #### [facility] CLIA [id number] [address] [place] [address] PT panel Coag (PPP)on 2020 INR Coag (PPP) [Relative time] 1.1 {INR} Normal 0.9-1.3 [facility] Comment on above: Order Comment: Speci men Type: BLOOD SPECIMEN Result Comment: Anjana min K Antagonist (VKA) Therapeutic Range: INR 2 to 3 (Target INR of 2.5) Note: For patients treated with VKA drugs, such as warfarin, the [place] [employer] 2012 Guideline recommends [...] Chest 2012, 141:7S-47S Raina LALA et al. [facility] 2017, 70: 252-289 Performed By: #### 1 4979-9, 52693-8 #### [facility] CLIA [id number] [address] [place] [address] PT Coag (PPP) [Time] 11.1 s Normal 9.7-13.0 [facility] Comment on above: Order Comment: Speci men Type: BLOOD SPECIMEN Performed By: #### 1 4979-9, 10732-3 #### [facility] CLIA [id number] [address] [place] [address] SURGICAL PATHOLOGYon CASE REPORT Normal [facility] Comment on above: Order Comment: Speci men Type: BLOOD SPECIMEN Result Comment: Surg ical Pathology Report Case: [id number] Authorizing Provider: Liliya Mares MD Collected: 09/30/2020 11:16 AM Ordering Location: [place] [facility] Received: 09/30/2020 12:25 PM Pathologist: Shyla Del Toro MD Specimen: PLAQUE Performed By: #### 2 4321-2, 32595-5, 2776-05 #### [facility] CLIA [id number] [address] [place] [address] FINAL DIAGNOSIS Normal [facility] Comment on above: Order Comment: Speci men Type: BLOOD SPECIMEN Result Comment: A. P sidney, right carotid artery, endarterectomy Fragments of calcified atherosclerotic plaque. Performed By: #### 2 4321-2, 90532-4, 2776-05 #### [facility] CLIA [id number] [address] [place] [address] FINAL PERFORMING LAB Normal [facility] Comment on above: Order Comment: Speci men Type: BLOOD SPECIMEN Result Comment: Diag nostic interpretation performed at [facility], [address] [place] [address] CLIA# [id number] Commercial Journeyman Electrician: Mariela Melissa M.D. Performed By: #### 2 4321-2, 27758-8, 2776-05 #### [facility] CLIA [id number] 1 [place] [address] GROSS DESCRIPTION A. PLAQUE. Normal [facility] Comment on above: Order Comment: Speci men Type: BLOOD SPECIMEN Result Comment: Rece ived in formalin labeled plaque is a segment of yellow-gilmore plaque-like material measuring 2.6 x 1.6 x 1.2 cm. Upon sectioning areas of ulceration and calcification are present. An attached thrombus is not seen. Gusset Edger sections are submitted in formalin in 1 cassette following a brief period of decalcification. KVB/maury Gross examination performed at [facility], [address] [place] [address] CLIA# [id number] Performed By: #### 2 4321-2, 09452-9, 2777-1 #### [facility] CLIA [id number] [address] [place] [phone] aPTT PPPon 09-30-2020 aPTT Coag (PPP) [Time] 64.6 s High 23.0-32.4 [facility] Comment on above: Order Comment: Speci men Type: BLOOD SPECIMEN Performed By: #### 1 4979-9, 51111-5 #### [facility] CLIA [id number] [address] [place] [phone] CNPNon 09-29-2020 CNPN Telephone (AGLevel Chef) RANCHO MULLER ([id number]) 1935 M Date Time Provider Department 09/29/20 [...] Date Reviewed: 09/24/2020 Reviewed by: Bethany Moulton APRN.SPRAY PILOT - Fully Assessed Reason for Visit: Cardiac [...] Date 09/29/2020 Noted Resolved DISC DISPLACEMENT NOS [[id number]] 06/12/2005 CORONARY ATHEROSCLER UNSPEC VESSEL [I25.10] 06/12/2005 [...] Encounter Status:Closed by [place] on 09/29/20 [facility] CNPN Telephone (AGSomeecardsACC) RANCHO MULLER ([id number]) 1935 M Date Time Provider Department 09/29/20 LILIYA MARES During your visit today, we recorded the following information about you: Allergies As of Date: 09/29/2020 Noted Allergy Reaction PENICILLINS 05/17/2005 2 - Rash ASPIRIN 05/17/2005 8 - GI Upset Comments: GI upset Can take coated low dose asa Date Reviewed: 09/24/2020 Reviewed by: Bethany Moulton APRN.SPRAY PILOT - Fully Assessed Reason for Visit: Cardiac [...] Date 09/29/2020 Noted Resolved DISC DISPLACEMENT NOS [[id number]] 06/12/2005 CORONARY ATHEROSCLER UNSPEC VESSEL [I25.10] 06/12/2005 [...] Status:Closed by [place] on 09/29/20 Normal [facility] PreOp/PreProc COVIDon 2020 SARS-CoV-2 (COVID-19) RNA ELVIRA+probe Ql (Unsp spec) UPPER RESPIRATORY TRACT SWAB Normal [facility] Comment on above: Performed By: #### P OCOVD #### [facility] [address] [place] [id number] SARS-CoV-2 (COVID-19) RNA ELVIRA+probe Ql (Unsp spec) Negative for COVID19 (SARS CoV2) by RT-PCR or equivalent method. Normal Negative for COVID19 (SARS CoV2) by RT-PCR or equivalent method. [facility] Comment on above: Result Comment: This test was developed and its performance characteristics determined by [facility]'s [facility] [place]. This test has been authorized by FDA under an Emergency Use Authorization (EUA). This test has been validated in accordance with the FDA's Guidance Document Policy for Diagnostics Testing in Laboratories Certified to Perform High Complexity Testing under CLIA prior to Emergency use Authorization for Coronavirus Disease 2019 during the Public Health Emergency issued on June 29, 2019. Test performed by [facility], [facility] [place], [address], [place] [address]. Performed By: #### P OCOVD #### [facility] [address] [place] [address] Basic metabolic 2000 panelon 09-24-2020 Anion gap [Moles/Vol] 9 mmol/L Normal 9-18 [facility] Comment on above: Order Comment: Speci men Type: BLOOD SPECIMEN Performed By: #### 2 4321-2, , 2776-05 #### [facility] CLIA [id number] [address] [place] [address] Calcium [Mass/Vol] 10.0 mg/dL Normal 8.5-10.2 [facility] Comment on above: Order Comment: Speci men Type: BLOOD SPECIMEN Performed By: #### 2 4321-2, , 2776-05 #### [facility] CLIA [id number] [address] [place] [address] Chloride [Moles/Vol] 102 mmol/L Normal 97-105 [facility] Comment on above: Order Comment: Speci men Type: BLOOD SPECIMEN Performed By: #### 2 4321-2, , 2776-05 #### [facility] CLIA [id number] [address] [place] [address] CO2 [Moles/Vol] 29 mmol/L Normal 22-30 [facility] Comment on above: Order Comment: Speci men Type: BLOOD SPECIMEN Performed By: #### 2 4321-2, , 2776-05 #### [facility] CLIA [id number] [address] [place] [address] Creatinine [Mass/Vol] 1.09 mg/dL Normal 0.73-1.22 [facility] Comment on above: Order Comment: Speci men Type: BLOOD SPECIMEN Performed By: #### 2 4321-2, 11403-1, 2776-05 #### [facility] CLIA [id number] [address] [place] [address] GFR/1.73 sq M.predicted MDRD (S/P/Bld) [Vol rate/Area] mL/min/{1.73_m2} Normal [facility] Comment on above: Order Comment: Speci men [...] By: #### 2 4321-2, , 2776-05 #### [facility] CLIA [id number] [address] [place] [address] Glucose [Mass/Vol] 99 mg/dL Normal 74-99 [facility] Comment on above: Order Comment: [facility] Type: BLOOD SPECIMEN Result Comment: The [place] Diabetes Association (ADA) provides guidance for cutoff [...] Standards of Medical Care in Diabetes 2016, [place] Diabetes Association. Diabetes Care. 2016.39(Suppl 1). Performed By: #### 2 4321-2, , 2776-05 #### [facility] CLIA [id number] [address] [place] [address] Potassium [Moles/Vol] 5.2 mmol/L High 3.7-5.1 [facility] Comment on above: Order Comment: Speci men Type: BLOOD SPECIMEN Performed By: #### 2 4321-2, , 2776-05 #### [facility] CLIA [id number] [address] [place] [address] Sodium [Moles/Vol] 140 mmol/L Normal 136-144 [facility] Comment on above: Order Comment: Speci men Type: BLOOD SPECIMEN Performed By: #### 2 4321-2, , 2776-05 #### [facility] CLIA [id number] [address] [place] [address] Urea nitrogen [Mass/Vol] 15 mg/dL Normal 9-24 [facility] Comment on above: Order Comment: Speci men Type: BLOOD SPECIMEN Performed By: #### 2 4321-2, , 2776-05 #### [facility] CLIA [id number] [address] [place] [address] CBC panel Auto (Bld)on 09-24 Erythrocyte distribution width (RBC) [Ratio] 14.2 % Normal 11.5-15.0 [facility] Comment on above: Order Comment: Speci men Type: BLOOD SPECIMEN Performed By: #### 5 8410-2 #### [facility] CLIA [id number] [address] [place] [address] Hematocrit (Bld) [Volume fraction] 43.1 % Normal 39.0-51.0 [facility] Comment on above: Order Comment: Speci men Type: BLOOD SPECIMEN Performed By: #### 5 8410-2 #### [facility] CLIA [id number] [address] [place] [address] Hemoglobin (Bld) [Mass/Vol] 14.4 g/dL Normal 13.0-17.0 [facility] Comment on above: Order Comment: Speci men Type: BLOOD SPECIMEN Performed By: #### 5 8410-2 #### [facility] CLIA [id number] [address] [place] [address] MCH (RBC) [Entitic mass] 31.4 pg Normal 26.0-34.0 [facility] Comment on above: Order Comment: Speci men Type: BLOOD SPECIMEN Performed By: #### 5 8410-2 #### [facility] CLIA [id number] [address] [place] [address] MCHC (RBC) [Mass/Vol] 33.4 g/dL Normal 30.5-36.0 [facility] Comment on above: Order Comment: Speci men Type: BLOOD SPECIMEN Performed By: #### 5 8410-2 #### [facility] CLIA [id number] [address] [place] [address] MCV (RBC) [Entitic vol] 94.1 fL Normal 80.0-100.0 [facility] Comment on above: Order Comment: Speci men Type: BLOOD SPECIMEN Performed By: #### 5 8410-2 #### [facility] CLIA [id number] [address] [place] [address] Nucleated RBC (Bld) [#/Vol] 10*3/uL Normal <0.01 [facility] Comment on above: Order Comment: Speci men Type: BLOOD SPECIMEN Performed By: #### 5 8410-2 #### [facility] CLIA [id number] [address] [place] [address] Platelet mean volume (Bld) [Entitic vol] 9.6 fL Normal 9.0-12.7 [facility] Comment on above: Order Comment: Speci men Type: BLOOD SPECIMEN Performed By: #### 5 8410-2 #### [facility] CLIA [id number] [address] [place] [address] Platelets (Bld) [#/Vol] 222 10*3/uL Normal 150-400 [facility] Comment on above: Order Comment: Speci men Type: BLOOD SPECIMEN Performed By: #### 5 8410-2 #### [facility] CLIA [id number] [address] [place] [address] RBC (Bld) [#/Vol] 4.58 10*6/uL Normal 4.20-6.00 [facility] Comment on above: Order Comment: Speci men Type: BLOOD SPECIMEN Performed By: #### 5 8410-2 #### [facility] CLIA [id number] [address] [place] [address] WBC (Bld) [#/Vol] 8.85 10*3/uL Normal 3.70-11.00 [facility] Comment on above: Order Comment: Speci men Type: BLOOD SPECIMEN Performed By: #### 5 8410-2 #### [facility] CLIA [id number] [address] [place] [phone] HISTORY PHYSICALon HISTORY PHYSICAL HNO ID: [id number] Author: Bethany Moulton APRN.SPRAY PILOT Service: ? Author Type: Nurse Practitioner Type: [...] Coronary Atherosclerosis of Unspecified Type of Vessel, [place] Or Graft Hld (Hyperlipidemia) Depression Esophageal Reflux [...] states he had carotid ultrasound completed in [place]. He was told he had blockage of [...] with Dr. Mares Surgery will be at [place] Have you been in contact with someone with known coronavirus/Covid 19? no Have you had surgery or pre testing at [facility] in the past 3 years? Yes [...] Negative for: chest pain, CHF and recent [place]. GI: Positive for: GERD Negative for: abdominal [...] Coronary atherosclerosis of unspecified type of vessel, [place] or graft - COVID-19 vaccine administered 06/18/2020 [...] HEART CATHETERIZATION 12/09/2009 Cardiac cath, R heart, [facility] FAMILY HISTORY Problem Re (more content not included)... Normal [facility] PT panel Coag (PPP)on 2020 INR Coag (PPP) [Relative time] 1.0 {INR} Normal 0.9-1.3 [facility] Comment on above: Order Comment: Speci men Type: BLOOD SPECIMEN Result Comment: Anjana min K Antagonist (VKA) Therapeutic Range: INR 2 to 3 (Target INR of 2.5) Note: For patients treated with VKA drugs, such as warfarin, the [place] College [employer]icians 2012 Guideline recommends [...] Chest 2012, 141:7S-47S Raina RA, et al. [facility] 2017, 70: 252-289 Performed By: #### 2 4321-2, 62492-2, 2777-1 #### [facility] CLIA [id number] [address] [place] [address] PT Coag (PPP) [Time] 10.1 s Normal 9.7-13.0 [facility] Comment on above: Order Comment: Speci men Type: BLOOD SPECIMEN Performed By: #### 2 4321-2, 10314-9, 2777-1 #### [facility] CLIA [id number] [address] [place] [address] CNOVon 08-21-2020 CNOV Office Visit (AGVASACC) RANCHO MULLER ([id number]) 1935 M Date Time Provider Department 08/21/20 10:30 AM ALEXA SCHAEFER (BAND SAW OPERATOR, SPRAY PILOT)AGROMI During your visit today, we recorded the following information about you: Pulse Blood pressure Weight Height 61/minute 122/60 97.5 kg 1.829 m Alexa Schaefer APRN.SPRAY PILOT, SPRAY PILOT 08/21/2020 2:13 PM Signed Rancho Silva Yohana [...] is currently taking aspirin: Yes Alexa Schaefer APRN.SPRAY PILOT Referring Provider: MARIELA KING [[id number]] Allergies As of Date: 08/21/2020 Noted Allergy [...] Date 08/21/2020 Noted Resolved DISC DISPLACEMENT NOS [[id number]] 06/12/2005 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 Thank you, Alexa Schaefer APRN.CNP [facility] [place] 08/21/2020 2:42 PM Signed I have scheduled the patient for a Right Carotid Endarterectomy on 09/30/20 @ 9 am with an arrival time of 7 am Pretesting is 09/23/20 @ 1040 at [facility] Covid testing is 09/27/20 @ 1020am at the [facility] Post op 10/30/20 @ 10 am with Alexa Mailed out info 08/21/20 Allergies As of Date: 08/21/2020 Noted Allergy Reaction PENICILLINS 05/17/2005 2 - Rash ASPIRIN 05/17/2005 8 - GI Upset Comments: GI upset Can take coated low dose asa Date Reviewed: 08/21/2020 Reviewed by: Makayla FongSatellite Instruction Facilitator) Kenny - Fully Assessed Reason for Visit: Schedule Surgery [1330] Primary Visit Diagnosis:Bilateral carotid artery stenosis [I65.23] Order(s):SURGICAL REQUEST - ELECTIVE (11/2019) [[id number]] Order #: [id number]: 1 HANDP FOR SURGERY [[id number]] Order #: [id number] CBC [SQCBC] Order #: [id number] FUTURE BASIC METABOLIC PNL [SQBMP] Order #: [id number] FUTURE PROTHROMBIN TIME/PT [SQPT] Order #: [id number] FUTURE PRE-PROCEDURE AND PRE-OPERATIVE COVID [SQPOCOVD] Order #: [id number] FUTURE Prescriptions as of 08/21/2020 Sig: VITAMIN [...] Date 08/21/2020 Noted Resolved DISC DISPLACEMENT NOS [[id number]] 06/12/2005 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] 06/12/2005 [...] by ALEXA SCHAEFER CNP on 08/06/20 Normal [facility] Basic metabolic 2000 panelon 07-23-2020 Anion gap [Moles/Vol] 9 mmol/L Normal 9-18 [facility] Comment on above: Order Comment: Speci men Type: BLOOD SPECIMEN Performed By: #### 2 4321-2 #### [facility] CLIA [id number] [address] [place] [address] Calcium [Mass/Vol] 9.0 mg/dL Normal 8.5-10.2 [facility] Comment on above: Order Comment: Speci men Type: BLOOD SPECIMEN Performed By: #### 2 4321-2 #### [facility] CLIA [id number] [address] [place] [address] Chloride [Moles/Vol] 101 mmol/L Normal 97-105 [facility] Comment on above: Order Comment: Speci men Type: BLOOD SPECIMEN Performed By: #### 2 4321-2 #### [facility] CLIA [id number] [address] [place] [address] CO2 [Moles/Vol] 24 mmol/L Normal 22-30 [facility] Comment on above: Order Comment: Speci men Type: BLOOD SPECIMEN Performed By: #### 2 4321-2 #### [facility] CLIA [id number] [address] [place] [address] Creatinine [Mass/Vol] 1.05 mg/dL Normal 0.73-1.22 [facility] Comment on above: Order Comment: Speci men Type: BLOOD SPECIMEN Performed By: #### 2 4321-2 #### [facility] CLIA [id number] [address] [place] [address] GFR/1.73 sq M.predicted MDRD (S/P/Bld) [Vol rate/Area] mL/min/{1.73_m2} Normal [facility] Comment on above: Order Comment: Speci men [...] GFR. Performed By: #### 2 4321-2 #### [facility] CLIA [id number] [address] [place] [address] Glucose [Mass/Vol] 135 mg/dL High 74-99 [facility] Comment on above: Order Comment: Speci men Type: BLOOD SPECIMEN Result Comment: The [place] Diabetes Association (ADA) provides guidance for cutoff [...] Standards of Medical Care in Diabetes 2016, [place] Diabetes Association. Diabetes Care. 2016.39(Suppl 1). Performed By: #### 2 4321-2 #### [facility] CLIA [id number] [address] [place] [address] Potassium [Moles/Vol] 4.7 mmol/L Normal 3.7-5.1 [facility] Comment on above: Order Comment: Speci men Type: BLOOD SPECIMEN Performed By: #### 2 4321-2 #### [facility] CLIA [id number] [address] [place] [address] Sodium [Moles/Vol] 134 mmol/L Low 136-144 [facility] Comment on above: Order Comment: Speci men Type: BLOOD SPECIMEN Performed By: #### 2 4321-2 #### [facility] CLIA [id number] [address] [place] [address] Urea nitrogen [Mass/Vol] 19 mg/dL Normal 9-24 [facility] Comment on above: Order Comment: Speci men Type: BLOOD SPECIMEN Performed By: #### 2 4321-2 #### [facility] CLIA [id number] [address] [place] [address] [facility] HNO ID: [id number] Author: Joelle (Rn) JESSENIA Marie Service: ? 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 Last discharge within 30 days: No Advance Directive: Current Advance Directive: Health Care Power of Business Operations Coordinator;Living Will In Chart: No Assembly Line Inspector Attempted to Assist with AD Completion: Yes [...] Cane Has the Patient Been in a Nursing Home Facility in the Past 30 days?: No SOCIAL: Living Arrangements: Home Lives With: Spouse Financial Resources: Retired Primary Contact: Extended Emergency Contact Information Primary Emergency Contact: LEA MULLER Address: [address] [place] [address] [address] Relation: Spouse Supportive Patient Contact:: Yes [...] Completely I feel financially burdened by my qbj-kv-rnjugs expenses for my prescription medication:: 0 - Disagree Completely Risk Score: 0 Patient is categorized as: Low risk < 2 Are you interested in bedside delivery of your medications? No Is Patient Psychosocially Complex?: No ASSESSMENT AND PLAN: Medical Needs: Medical Needs: None Psychosocial Needs: Psychosocial Needs: None FREEDOM OF CHOICE EXPLAINED: [place] of Choice Given: No Reason Not Given: No placements necessary POTENTIAL TRANSITION PLANS Home Met with pt and , explained CM role. 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 Amb with cane when out of the home. Drives. Plan is to return home at [place]. No transitional care needs identified at this time. [facility] [place]. SIGNATURE: Joelle Marie RN PATIENT NAME: Rancho Muller DATE: July 23, 2020 TIME: 11:11 AM PAGER/CONTACT #: [phone] Normal [facility] CBC W Auto Differential pane l (Bld)on 07-23-2020 Basophils (Bld) [#/Vol] 0.03 10*3/uL Normal <0.11 [facility] Comment on above: Order Comment: Speci men Type: BLOOD SPECIMEN Performed By: #### 2 4321-2, , 2776-05 #### [facility] CLIA [id number] [address] [place] [address] Basophils/100 WBC (Bld) 0.2 % Normal [facility] Comment on above: Order Comment: Speci men Type: BLOOD SPECIMEN Performed By: #### 2 4321-2, , 2776-05 #### [facility] CLIA [id number] [address] [place] [address] Differential cell count method Nom (Bld) Auto Normal [facility] Comment on above: Order Comment: Speci men Type: BLOOD SPECIMEN Performed By: #### 2 4321-2, , 2776-05 #### [facility] CLIA [id number] [address] [place] [address] Eosinophils (Bld) [#/Vol] 10*3/uL Normal <0.46 [facility] Comment on above: Order Comment: Speci men Type: BLOOD SPECIMEN Performed By: #### 2 4321-2, , 2776-05 #### [facility] CLIA [id number] [address] [place] [address] Eosinophils/100 WBC (Bld) 0.0 % Normal [facility] Comment on above: Order Comment: Speci men Type: BLOOD SPECIMEN Performed By: #### 2 4321-2, , 2776-05 #### [facility] CLIA [id number] [address] [place] [address] Erythrocyte distribution width (RBC) [Ratio] 13.3 % Normal 11.5-15.0 [facility] Comment on above: Order Comment: Speci men Type: BLOOD SPECIMEN Performed By: #### 2 4321-2, , 2776-05 #### [facility] CLIA [id number] [address] [place] [address] Hematocrit (Bld) [Volume fraction] 36.5 % Low 39.0-51.0 [facility] Comment on above: Order Comment: Speci men Type: BLOOD SPECIMEN Performed By: #### 2 4321-2, , 2776-05 #### [facility] CLIA [id number] [address] [place] [address] Hemoglobin (Bld) [Mass/Vol] 12.7 g/dL Low 13.0-17.0 [facility] Comment on above: Order Comment: Speci men Type: BLOOD SPECIMEN Performed By: #### 2 4320-2, , 2776-05 #### [facility] CLIA [id number] [address] [place] [address] IMMATURE GRAN % 0.7 % Normal [facility] Comment on above: Order Comment: Speci men Type: BLOOD SPECIMEN Performed By: #### 2 4320-2, , 2776-05 #### [facility] CLIA [id number] [address] [place] [address] IMMATURE GRAN ABS 0.12 k/uL High <0.10 [facility] Comment on above: Order Comment: Speci men Type: BLOOD SPECIMEN Performed By: #### 2 4321-2, , 2776-05 #### [facility] CLIA [id number] [address] [place] [address] Lymphocytes (Bld) [#/Vol] 1.28 10*3/uL Normal 1.00-4.00 [facility] Comment on above: Order Comment: Speci men Type: BLOOD SPECIMEN Performed By: #### 2 1-2, , 2776-05 #### [facility] CLIA [id number] [address] [place] [address] Lymphocytes/100 WBC (Bld) 7.0 % Normal [facility] Comment on above: Order Comment: Speci men Type: BLOOD SPECIMEN Performed By: #### 2 1-2, , 2776-05 #### [facility] CLIA [id number] [address] [place] [address] MCH (RBC) [Entitic mass] 31.2 pg Normal 26.0-34.0 [facility] Comment on above: Order Comment: Speci men Type: BLOOD SPECIMEN Performed By: #### 2 4320-2, , 2776-05 #### [facility] CLIA [id number] [address] [place] [address] MCHC (RBC) [Mass/Vol] 34.8 g/dL Normal 30.5-36.0 [facility] Comment on above: Order Comment: Speci men Type: BLOOD SPECIMEN Performed By: #### 2 4320-2, , 2776-05 #### [facility] CLIA [id number] [address] [place] [address] MCV (RBC) [Entitic vol] 89.7 fL Normal 80.0-100.0 [facility] Comment on above: Order Comment: Speci men Type: BLOOD SPECIMEN Performed By: #### 2 4320-2, , 2776-05 #### [facility] CLIA [id number] [address] [place] [address] Monocytes (Bld) [#/Vol] 1.43 10*3/uL High <0.87 [facility] Comment on above: Order Comment: Speci men Type: BLOOD SPECIMEN Performed By: #### 2 1-2, , 2776-05 #### [facility] CLIA [id number] [address] [place] [address] Monocytes/100 WBC (Bld) 7.8 % Normal [facility] Comment on above: Order Comment: Speci men Type: BLOOD SPECIMEN Performed By: #### 2 4320-2, , 2776-05 #### [facility] CLIA [id number] [address] [place] [address] Neutrophils (Bld) [#/Vol] 15.52 10*3/uL High 1.45-7.50 [facility] Comment on above: Order Comment: Speci men Type: BLOOD SPECIMEN Performed By: #### 2 4321-2, , 2776-05 #### [facility] CLIA [id number] [address] [place] [address] Neutrophils/100 WBC (Bld) 84.3 % Normal [facility] Comment on above: Order Comment: Speci men Type: BLOOD SPECIMEN Performed By: #### 2 4321-2, , 2776-05 #### [facility] CLIA [id number] [address] [place] [address] Nucleated RBC (Bld) [#/Vol] 10*3/uL Normal <0.01 [facility] Comment on above: Order Comment: Speci men Type: BLOOD SPECIMEN Performed By: #### 2 4321-2, , 2776-05 #### [facility] CLIA [id number] [address] [place] [address] Nucleated RBC/100 WBC (Bld) [Ratio] 0.0 /100 WBC Normal 0.0 [facility] Comment on above: Order Comment: Speci men Type: BLOOD SPECIMEN Performed By: #### 2 4321-2, , 2776-05 #### [facility] CLIA [id number] [address] [place] [address] Platelet mean volume (Bld) [Entitic vol] 9.2 fL Normal 9.0-12.7 [facility] Comment on above: Order Comment: Speci men Type: BLOOD SPECIMEN Performed By: #### 2 4321-2, , 2776-05 #### [facility] CLIA [id number] [address] [place] [address] Platelets (Bld) [#/Vol] 200 10*3/uL Normal 150-400 [facility] Comment on above: Order Comment: Speci men Type: BLOOD SPECIMEN Performed By: #### 2 4321-2, 00575-9, 7-1 #### [facility] CLIA [id number] [address] [place] [address] RBC (Bld) [#/Vol] 4.07 10*6/uL Low 4.20-6.00 [facility] Comment on above: Order Comment: Speci men Type: BLOOD SPECIMEN Performed By: #### 2 4321-2, 85698-9, 2776-1 #### [facility] CLIA [id number] [address] [place] [address] WBC (Bld) [#/Vol] 18.38 10*3/uL High 3.70-11.00 [facility] Comment on above: Order Comment: Speci men Type: BLOOD SPECIMEN Performed By: #### 2 4321-2, 70392-0, 2776-1 #### [facility] CLIA [id number] [address] [place] [address] CNDSon 07-23-2020 [facility] HNO ID: [id number] Author: Desmond Peters DO Service: General Surgery [...] July 23, 2020 TIME: 12:39 PM Normal [facility] ANES POSTPROC EVALon 021 ANES POSTPROC EVAL HNO ID: [id number] Author: Fermin Foy Service: Anesthesiology Author Type: Physician Type: Anesthesia Postprocedure Evaluation Filed: 07/22/2020 3:43 PM Note Text: POST ANESTHESIA EVALUATION NOTE : 1935 Procedure Summary Date: 07/22/20 Room / Location: [place] OR [address] [place] [address] OR Anesthesia Start: 832 Anesthesia Stop: 1212 [...] July 22, 2020 TIME: 3:41 PM CSN: [id number] [facility] ANES PRE-OPon 07-22-2020 ANES PRE-OP HNO ID: [id number] Author: Fermin Foy Service: Anesthesiology Author Type: [...] Coronary atherosclerosis of unspecified type of vessel, [place] or graft (+) HTN (hypertension) (+) Left [...] July 22, 2020 TIME: 7:51 AM CSN: [id number] [facility] BRIEF OP NOTon 07-22-2020 BRIEF OP NOT HNO ID: [id number] Author: Antonette Whipple Service: General Surgery Author [...] BRIEF OPERATIVE / PROCEDURE NOTE LOG ID: [id number] SURGERY/PROCEDURE DATE: 07/22/2020 INCISION/PROCEDURE START TIME: 9:27 AM INCISION CLOSE/PROCEDURE END TIME: SURGEON(S)/PROCEDURALI ST(S) AND OIL BURNER TECHNICIAN(S): Surgeon(s) and Role: * Liliya Mares - Primary * Antonette Whipple - Resident - Assisting * Mark Hutson - Physician 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: Shelly Fong) SA [employer]; Fermin Fong) SA [...] 2020 TIME: 11:22 AM PAGER/CONTACT #: Normal [facility] Basic metabolic 2000 panelon 07-22-2020 Anion gap [Moles/Vol] 7 mmol/L Low 9-18 [facility] Comment on above: Order Comment: Speci men Type: BLOOD SPECIMEN Performed By: #### 2 4321-2, , 2776-05 #### [facility] CLIA [id number] [address] [place] [address] Calcium [Mass/Vol] 8.7 mg/dL Normal 8.5-10.2 [facility] Comment on above: Order Comment: Speci men Type: BLOOD SPECIMEN Performed By: #### 2 4321-2, , 2776-05 #### [facility] CLIA [id number] [address] [place] [address] Chloride [Moles/Vol] 106 mmol/L High 97-105 [facility] Comment on above: Order Comment: Speci men Type: BLOOD SPECIMEN Performed By: #### 2 4321-2, , 2776-05 #### [facility] CLIA [id number] [address] [place] [address] CO2 [Moles/Vol] 24 mmol/L Normal 22-30 [facility] Comment on above: Order Comment: Speci men Type: BLOOD SPECIMEN Performed By: #### 2 4321-2, , 2776-05 #### [facility] CLIA [id number] [address] [place] [address] Creatinine [Mass/Vol] 0.95 mg/dL Normal 0.73-1.22 [facility] Comment on above: Order Comment: Speci men Type: BLOOD SPECIMEN Performed By: #### 2 4321-2, , 2776-05 #### [facility] CLIA [id number] [address] [place] [address] GFR/1.73 sq M.predicted MDRD (S/P/Bld) [Vol rate/Area] mL/min/{1.73_m2} Normal [facility] Comment on above: Order Comment: Speci men [...] By: #### 2 4321-2, , 2776-05 #### [facility] CLIA [id number] [address] [place] [address] Glucose [Mass/Vol] 128 mg/dL High 74-99 [facility] Comment on above: Order Comment: Speci men Type: BLOOD SPECIMEN Result Comment: The [place] Diabetes Association (ADA) provides guidance for cutoff [...] Standards of Medical Care in Diabetes 2016, [place] [employer]. Diabetes Care. 2016.39(Suppl 1). Performed By: #### 2 1-2, , 2776-05 #### [facility] CLIA [id number] [address] [place] [address] Potassium [Moles/Vol] 4.3 mmol/L Normal 3.7-5.1 [facility] Comment on above: Order Comment: Speci men Type: BLOOD SPECIMEN Performed By: #### 2 4320-2, , 2776-05 #### [facility] CLIA [id number] [address] [place] [address] Sodium [Moles/Vol] 137 mmol/L Normal 136-144 [facility] Comment on above: Order Comment: Speci men Type: BLOOD SPECIMEN Performed By: #### 2 4320-2, , 2776-05 #### [facility] CLIA [id number] [address] [place] [address] Urea nitrogen [Mass/Vol] 15 mg/dL Normal - [facility] Comment on above: Order Comment: Speci men Type: BLOOD SPECIMEN Performed By: #### 2 1-2, , 2776-05 #### [facility] CLIA [id number] [address] [place] [address] CBC W Auto Differential pane l (Bld)on 07-22-2020 Basophils (Bld) [#/Vol] 10*3/uL Normal <0.11 [facility] Comment on above: Order Comment: Speci men Type: BLOOD SPECIMEN Performed By: #### 2 1-2, , 2776-05 #### [facility] CLIA [id number] [address] [place] [address] Basophils/100 WBC (Bld) 0.1 % Normal [facility] Comment on above: Order Comment: Speci men Type: BLOOD SPECIMEN Performed By: #### 2 4321-2, , 2776-05 #### [facility] CLIA [id number] [address] [place] [address] Differential cell count method Nom (Bld) Auto Normal [facility] Comment on above: Order Comment: Speci men Type: BLOOD SPECIMEN Performed By: #### 2 4321-2, , 2776-05 #### [facility] CLIA [id number] [address] [place] [address] Eosinophils (Bld) [#/Vol] 10*3/uL Normal <0.46 [facility] Comment on above: Order Comment: Speci men Type: BLOOD SPECIMEN Performed By: #### 2 4320-2, , 2776-05 #### [facility] CLIA [id number] [address] [place] [address] Eosinophils/100 WBC (Bld) 0.0 % Normal [facility] Comment on above: Order Comment: Speci men Type: BLOOD SPECIMEN Performed By: #### 2 4320-2, , 2776-05 #### [facility] CLIA [id number] [address] [place] [address] Erythrocyte distribution width (RBC) [Ratio] 13.2 % Normal 11.5-15.0 [facility] Comment on above: Order Comment: Speci men Type: BLOOD SPECIMEN Performed By: #### 2 1-2, , 2776-05 #### [facility] CLIA [id number] [address] [place] [address] Hematocrit (Bld) [Volume fraction] 39.5 % Normal 39.0-51.0 [facility] Comment on above: Order Comment: Speci men Type: BLOOD SPECIMEN Performed By: #### 2 4321-2, , 2776-05 #### [facility] CLIA [id number] [address] [place] [address] Hemoglobin (Bld) [Mass/Vol] 13.7 g/dL Normal 13.0-17.0 [facility] Comment on above: Order Comment: Speci men Type: BLOOD SPECIMEN Performed By: #### 2 4321-2, , 2776-05 #### [facility] CLIA [id number] [address] [place] [address] IMMATURE GRAN % 0.3 % Normal [facility] Comment on above: Order Comment: Speci men Type: BLOOD SPECIMEN Performed By: #### 2 4321-2, , 2776-05 #### [facility] CLIA [id number] [address] [place] [address] IMMATURE GRAN ABS 0.03 k/uL Normal <0.10 [facility] Comment on above: Order Comment: Speci men Type: BLOOD SPECIMEN Performed By: #### 2 1-2, , 2776-05 #### [facility] CLIA [id number] [address] [place] [address] Lymphocytes (Bld) [#/Vol] 0.71 10*3/uL Low 1.00-4.00 [facility] Comment on above: Order Comment: Speci men Type: BLOOD SPECIMEN Performed By: #### 2 4321-2, , 2776-05 #### [facility] CLIA [id number] [address] [place] [address] Lymphocytes/100 WBC (Bld) 7.9 % Normal [facility] Comment on above: Order Comment: Speci men Type: BLOOD SPECIMEN Performed By: #### 2 4321-2, , 2776-05 #### [facility] CLIA [id number] [address] [place] [address] MCH (RBC) [Entitic mass] 31.6 pg Normal 26.0-34.0 [facility] Comment on above: Order Comment: Speci men Type: BLOOD SPECIMEN Performed By: #### 2 4321-2, , 2777-1 #### [facility] CLIA [id number] [address] [place] [address] MCHC (RBC) [Mass/Vol] 34.7 g/dL Normal 30.5-36.0 [facility] Comment on above: Order Comment: Speci men Type: BLOOD SPECIMEN Performed By: #### 2 4321-2, , 2776-05 #### [facility] CLIA [id number] [address] [place] [address] MCV (RBC) [Entitic vol] 91.2 fL Normal 80.0-100.0 [facility] Comment on above: Order Comment: Speci men Type: BLOOD SPECIMEN Performed By: #### 2 4320-2, , 2776-05 #### [facility] CLIA [id number] [address] [place] [address] Monocytes (Bld) [#/Vol] 0.21 10*3/uL Normal <0.87 [facility] Comment on above: Order Comment: Speci men Type: BLOOD SPECIMEN Performed By: #### 2 4320-2, , 2776-05 #### [facility] CLIA [id number] [address] [place] [address] Monocytes/100 WBC (Bld) 2.3 % Normal [facility] Comment on above: Order Comment: Speci men Type: BLOOD SPECIMEN Performed By: #### 2 4321-2, , 2776-05 #### [facility] CLIA [id number] [address] [place] [address] Neutrophils (Bld) [#/Vol] 8.03 10*3/uL High 1.45-7.50 [facility] Comment on above: Order Comment: Speci men Type: BLOOD SPECIMEN Performed By: #### 2 4321-2, , 2776-05 #### [facility] CLIA [id number] [address] [place] [address] Neutrophils/100 WBC (Bld) 89.4 % Normal [facility] Comment on above: Order Comment: Speci men Type: BLOOD SPECIMEN Performed By: #### 2 4321-2, , 2776-05 #### [facility] CLIA [id number] [address] [place] [address] Nucleated RBC (Bld) [#/Vol] 10*3/uL Normal <0.01 [facility] Comment on above: Order Comment: Speci men Type: BLOOD SPECIMEN Performed By: #### 2 4321-2, , 2776-05 #### [facility] CLIA [id number] [address] [place] [address] Nucleated RBC/100 WBC (Bld) [Ratio] 0.0 /100 WBC Normal 0.0 [facility] Comment on above: Order Comment: Speci men Type: BLOOD SPECIMEN Performed By: #### 2 4320-2, , 2776-05 #### [facility] CLIA [id number] [address] [place] [address] Platelet mean volume (Bld) [Entitic vol] 9.0 fL Normal 9.0-12.7 [facility] Comment on above: Order Comment: Speci men Type: BLOOD SPECIMEN Performed By: #### 2 4321-2, , 2776-05 #### [facility] CLIA [id number] [address] [place] [address] Platelets (Bld) [#/Vol] 149 10*3/uL Low 150-400 [facility] Comment on above: Order Comment: Speci men Type: BLOOD SPECIMEN Performed By: #### 2 4321-2, , 2776-05 #### [facility] CLIA [id number] [address] [place] [address] RBC (Bld) [#/Vol] 4.33 10*6/uL Normal 4.20-6.00 [facility] Comment on above: Order Comment: Speci men Type: BLOOD SPECIMEN Performed By: #### 2 4321-2, , 2776-05 #### [facility] CLIA [id number] [address] [place] [address] WBC (Bld) [#/Vol] 8.99 10*3/uL Normal 3.70-11.00 [facility] Comment on above: Order Comment: Speci men Type: BLOOD SPECIMEN Performed By: #### 2 4321-2, 60196-5, 2777-1 #### [facility] CLIA [id number] [address] [place] [id number] OPERATIVE NOon 07-22-2020 OPERATIVE NO HNO ID: [id number] Author: Liliya Mares Service: Vascular Surgery Author Type: Physician Type: Operative Report Filed: 07/23/2020 3:36 PM Note Text: [facility] - Operative Report RANCHO MULLER : 1935 AGE: 84. SEX: M PATIENT TYPE: I HOSP SVC: MIKI LOCATION: [id number] ATTENDING PHYSICIAN: LILIYA MARES CSN NUMBER: [id number] DATE OF SURGERY/PROCEDURE: 07/22/2020 INCISION/PROCEDURE START TIME: 9:27 AM INCISION CLOSE/PROCEDURE END TIME: 11:27 AM PREOPERATIVE DIAGNOSIS: Carotid stenosis. POSTOPERATIVE DIAGNOSIS: Carotid stenosis. SURGEON: Liliya Mares MD OIL BURNER TECHNICIAN: Antonette Whipple MD. SURGERY/PROCEDURE: Left carotid endarterectomy. [...] and external carotid arteries. Arteriotomy was made. Avery shunt was placed within the common carotid [...] full details of findings. Liliya Mares MD LM:[id number] /[id number] Normal [facility] SURGICAL PATHOLOGYon CASE REPORT Normal [facility] Comment on above: Order Comment: Speci men Type: BLOOD SPECIMEN Result Comment: Surg ical Pathology Report Case: [id number] Authorizing Provider: Liliya Mares Collected: 07/22/2020 10:23 AM Ordering Location: [facility] Received: 07/22/2020 12:44 PM Pathologist: Radha Jimenez Specimen: PLAQUE, PLAQUE FROM LEFT CAROTID ARTERY Performed By: #### 2 4321-2, 56447-0, 2777-1 #### [facility] CLIA [id number] [address] [place] [address] FINAL DIAGNOSIS Normal [facility] Comment on above: Order Comment: Speci men Type: BLOOD SPECIMEN Result Comment: Subm itted as (plaque), endarterectomy - Portion of arterial intima with calcific atherosclerosis. Performed By: #### 2 4321-2, 32092-9, 2776- #### [facility] CLIA [id number] [address] [place] [address] FINAL PERFORMING LAB Normal [facility] Comment on above: Order Comment: Speci men Type: BLOOD SPECIMEN Result Comment: Diag nostic interpretation performed at [facility], [address] [place] [address] CLIA# [id number] Commercial Journeyman Electrician: Mariela Melissa M.D. Performed By: #### 2 4321-2, 28179-2, 2776-05 #### [facility] CLIA [id number] [address] [place] [address] GROSS DESCRIPTION A. PLAQUE. Normal [facility] Comment on above: Order Comment: Speci men Type: BLOOD SPECIMEN Result Comment: Rece ived in formalin labeled plaque is a yellow-gilmore slightly firm tubular pressure measuring 4 x 1.5 x 1 cm. No vessel wall is identified. No thrombi are present. Gusset Edger sections are submitted in cassette A1 after full decalcification. OLS/kls Gross examination performed at [facility], [address] [place] [address] CLIA# [id number] Performed By: #### 2 4321-2, 79695-4, 2776-05 #### [facility] CLIA [id number] [address] [place] [address] PreOp/PreProc COVIDon 2020 SARS-CoV-2 (COVID-19) RNA ELVIRA+probe Ql (Unsp spec) UPPER RESPIRATORY TRACT SWAB Normal [facility] Comment on above: Performed By: #### P OCOVD #### [facility] [address] [place], [place] [address] SARS-CoV-2 (COVID-19) RNA ELVIRA+probe Ql (Unsp spec) Negative Normal Negative for COVID19 (SARS CoV2) by PCR. [facility] Comment on above: Result Comment: This test was developed and its performance characteristics determined by [facility] [place]. This test has been authorized by FDA under an Emergency Use Authorization (EUA). This test has been validated in accordance with the FDA's Guidance Document Policy for Diagnostics Testing in Laboratories Certified to Perform High Complexity Testing under CLIA prior to Emergency use Authorization for Coronavirus Disease 2019 during the Public Health Emergency issued on June 29, 2019. Test performed by [facility], [facility] [place], [address] [address]. Performed By: #### P OCOVD #### [facility] [address] [address] Basic metabolic 2000 panelon 07-15-2020 Anion gap [Moles/Vol] 7 mmol/L Low 9-18 [facility] Comment on above: Order Comment: Speci men Type: BLOOD SPECIMEN Performed By: #### 2 4321-2 #### [facility] CLIA [id number] [address] [place] [address] Calcium [Mass/Vol] 9.7 mg/dL Normal 8.5-10.2 [facility] Comment on above: Order Comment: Speci men Type: BLOOD SPECIMEN Performed By: #### 2 4321-2 #### [facility] CLIA [id number] [address] [place] [address] Chloride [Moles/Vol] 100 mmol/L Normal 97-105 [facility] Comment on above: Order Comment: Speci men Type: BLOOD SPECIMEN Performed By: #### 2 4321-2 #### [facility] CLIA [id number] [address] [place] [address] CO2 [Moles/Vol] 29 mmol/L Normal 22-30 [facility] Comment on above: Order Comment: Speci men Type: BLOOD SPECIMEN Performed By: #### 2 4321-2 #### [facility] CLIA [id number] [address] [place] [address] Creatinine [Mass/Vol] 1.15 mg/dL Normal 0.73-1.22 [facility] Comment on above: Order Comment: Speci men Type: BLOOD SPECIMEN Performed By: #### 2 4321-2 #### [facility] CLIA [id number] [address] [place] [address] GFR/1.73 sq M.predicted MDRD (S/P/Bld) [Vol rate/Area] mL/min/{1.73_m2} Normal [facility] Comment on above: Order Comment: Speci men [...] GFR. Performed By: #### 2 4321-2 #### [facility] CLIA [id number] [address] [place] [address] Glucose [Mass/Vol] 90 mg/dL Normal 74-99 [facility] Comment on above: Order Comment: Speci men Type: BLOOD SPECIMEN Result Comment: The [place] Diabetes Association (ADA) provides guidance for cutoff [...] Standards of Medical Care in Diabetes 2016, [place] [employer]. Diabetes Care. 2016.39(Suppl 1). Performed By: #### 2 4321-2 #### [facility] CLIA [id number] [address] [place] [address] Potassium [Moles/Vol] 4.7 mmol/L Normal 3.7-5.1 [facility] Comment on above: Order Comment: Speci men Type: BLOOD SPECIMEN Performed By: #### 2 4321-2 #### [facility] CLIA [id number] [address] [place] [address] Sodium [Moles/Vol] 136 mmol/L Normal 136-144 [facility] Comment on above: Order Comment: Speci men Type: BLOOD SPECIMEN Performed By: #### 2 4321-2 #### [facility] CLIA [id number] [address] [place] [address] Urea nitrogen [Mass/Vol] 17 mg/dL Normal 9-24 [facility] Comment on above: Order Comment: Speci men Type: BLOOD SPECIMEN Performed By: #### 2 4321-2 #### [facility] CLIA [id number] [address] [place] [address] CBC panel Auto (Bld)on 07-15 Erythrocyte distribution width (RBC) [Ratio] 13.4 % Normal 11.5-15.0 [facility] Comment on above: Order Comment: Speci men Type: BLOOD SPECIMEN Performed By: #### H MAG1C #### [facility] CLIA [id number] [address] [place] [address] Hematocrit (Bld) [Volume fraction] 42.2 % Normal 39.0-51.0 [facility] Comment on above: Order Comment: Speci men Type: BLOOD SPECIMEN Performed By: #### H MAG1C #### [facility] CLIA [id number] [address] [place] [address] Hemoglobin (Bld) [Mass/Vol] 14.6 g/dL Normal 13.0-17.0 [facility] Comment on above: Order Comment: Speci men Type: BLOOD SPECIMEN Performed By: #### H BURKE #### [facility] CLIA [id number] [address] [place] [address] MCH (RBC) [Entitic mass] 32.1 pg Normal 26.0-34.0 [facility] Comment on above: Order Comment: Speci men Type: BLOOD SPECIMEN Performed By: #### H BA1C #### [facility] CLIA [id number] [address] [place] [address] MCHC (RBC) [Mass/Vol] 34.6 g/dL Normal 30.5-36.0 [facility] Comment on above: Order Comment: Speci men Type: BLOOD SPECIMEN Performed By: #### Domitila BA1C #### [facility] CLIA [id number] [address] [place] [address] MCV (RBC) [Entitic vol] 92.7 fL Normal 80.0-100.0 [facility] Comment on above: Order Comment: Speci men Type: BLOOD SPECIMEN Performed By: #### Domitila TURK #### [facility] [facility] CLIA [id number] [address] [place] [address] Nucleated RBC (Bld) [#/Vol] 10*3/uL Normal <0.01 [facility] Comment on above: Order Comment: Speci men Type: BLOOD SPECIMEN Performed By: #### Domitila TURK #### [facility] CLIA [id number] [address] [place] [address] Platelet mean volume (Bld) [Entitic vol] 9.4 fL Normal 9.0-12.7 [facility] Comment on above: Order Comment: Speci men Type: BLOOD SPECIMEN Performed By: #### Domitila TURK #### [facility] CLIA [id number] [address] [place] [address] Platelets (Bld) [#/Vol] 210 10*3/uL Normal 150-400 [facility] Comment on above: Order Comment: Speci men Type: BLOOD SPECIMEN Performed By: #### Domitila HATHAWAY1C #### [facility] CLIA [id number] [address] [place] [address] RBC (Bld) [#/Vol] 4.55 10*6/uL Normal 4.20-6.00 [facility] Comment on above: Order Comment: Speci men Type: BLOOD SPECIMEN Performed By: #### Domitila BA1C #### [facility] CLIA [id number] [address] [place] [address] WBC (Bld) [#/Vol] 9.77 10*3/uL Normal 3.70-11.00 [facility] Comment on above: Order Comment: Speci men Type: BLOOD SPECIMEN Performed By: #### H BA1C #### [facility] CLIA [id number] [address] [place] [address] HISTORY PHYSICALon HISTORY PHYSICAL HNO ID: [id number] Author: Brandy Szymanski Service: ? Author Type: [...] Coronary Atherosclerosis of Unspecified Type of Vessel, [place] Or Graft Hld (Hyperlipidemia) Depression Esophageal Reflux [...] Coronary atherosclerosis of unspecified type of vessel, [place] or graft - Depression - Displacement of [...] HEART CATHETERIZATION 12/09/2009 Cardiac cath, R heart, [facility] FAMILY HISTORY Problem Relation Age of [...] Drug use: (more content not included)... Normal [facility] PT panel Coag (PPP)on 2020 INR Coag (PPP) [Relative time] 1.0 {INR} Normal 0.9-1.3 [facility] Comment on above: Order Comment: Speci men Type: BLOOD SPECIMEN Result Comment: Anjana min K Antagonist (VKA) Therapeutic Range: INR 2 to 3 (Target INR of 2.5) Note: For patients treated with VKA drugs, such as warfarin, the [place] [employer] 2012 Guideline recommends [...] Chest 2012, 141:7S-47S Raina RA, et al. [facility] 2017, 70: 252-289 Performed By: #### 2 4321-2, 69951-3, 2776- #### [facility] CLIA [id number] [address] [place] [address] PT Coag (PPP) [Time] 10.8 s Normal 9.7-13.0 [facility] Comment on above: Order Comment: Speci men Type: BLOOD SPECIMEN Performed By: #### 2 4321-2, 45424-3, 2777-1 #### [facility] CLIA [id number] [address] [place] [id number] Toi 06-16-2020 TARA Telephone (AGLevel Chef) PORFIRIORANCHO XIONG ([id number]) 1935 M Date Time Provider Department 06/16/20 [...] time. Pretesting is 07/15/20 @ 1pm Main [facility] building - No fasting is required [facility] 07/19[facility]20 @ 10:05am Post op is 08/21/20 @ 1030 am with Alexa Schaefer Mailed 06/16/20 Allergies As of Date: 06/16/2020 Noted Allergy Reaction ASPIRIN 05/17/2005 Comments: GI upset PENICILLINS 05/17/2005 Date Reviewed: 03/03/2020 Reviewed by: Keegan (Rn) JESSENIA Paredes - Fully Assessed Reason for Visit: Schedule Surgery [1330] Primary Visit Diagnosis:Bilateral carotid artery stenosis [I65.23] Order(s):SURGICAL REQUEST - ELECTIVE (11/2019) [[id number]] Order #: [id number]: 1 HANDP FOR SURGERY [[id number]] Order #: [id number] PRE-PROCEDURE AND PRE-OPERATIVE COVID [SQPOCOVD] Order #: [id number] FUTURE CBC [SQCBC] Order #: [id number] FUTURE BASIC METABOLIC PNL [SQBMP] Order #: [id number] FUTURE PROTHROMBIN TIME/PT [SQPT] Order #: [id number] FUTURE ECG COMPLETE [ECG01] Order #: [id number] FUTURE Prescriptions as of 06/16/2020 Sig: ASPIRIN [...] Date 06/16/2020 Noted Resolved DISC DISPLACEMENT NOS [[id number]] 06/12/2005 CORONARY ATHEROSCLER UNSPEC VESSEL [I25.10] 06/12/2005 [...] Status:Closed by ALEXA SCHAEFER CNP on 06/16/20 [facility] CNPNon 04-02-2020 [facility] Telephone (AGVASACC) RANCHO MULLER ([id number]) 1935 M Date Time Provider Department 04/02/20 [...] Date 04/02/2020 Noted Resolved DISC DISPLACEMENT NOS [[id number]] 06/12/2005 CORONARY ATHEROSCLER UNSPEC VESSEL [I25.10] 06/12/2005 [...] Status:Closed by LILIYA MARES MD on 06/17/20 [facility] CASE MANAGEMon 03-03-2020 CASE MANAGEM HNO ID: [id number] Author: MARTIN Bird (Lisw) Service: Social Work Author Type: Development Writer Type: Care Mgt Progress Note Filed: 03/03/2020 [...] 03, 2020 TIME: 12:26 PM PAGER/CONTACT #: [phone] Normal [facility] CNDSon 03-03-2020 CNDS HNO ID: [id number] Author: Joce Zuniga MD Service: Hospital Medicine [...] was admitted from Monday to evening at [facility] after presentation of confusion. 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 He presented to [facility] after being confused and slurring speech which was resolved by the time of he reached [facility]. Due to symptoms of right arm numbness and continued concern for TIAs he was transferred to [facility]. Neurology and vascular surgery were consulted EEG [...] Appointment When: In 1 week Mariela King [phone] [facility]. [facility] [address] [facility] [address] PCP Requested Referral Follow-Up Appointment When: In 5 days Liliya Mares [phone] [address] [facility] [address] REPLACED BY [facility] [address] PCP Requested Referral Follow-Up Appointment When: In 2 weeks Bandar Calhoun MD [phone]PL[address] BY [facility] [address] PCP Requested Referral Additional Provider to Provider Information: Treatment Team: Attending Provider: Joce Zuniga MD Consulting: Bandar Calhoun MD Consulting: Yvon Joel Primary Service: Nicholas Jameson [facility] Critical Issues: Continue aspirin and statin Follow up with Neurology Follow up with Vascular surgery for CEA as outpatient LABS AND PROCEDURES PENDING AT DISCHARGE: No pending results. Ruled Out FOLLOW-UP APPOINTMENTS ALREADY SCHEDULED WITH A [facility] PROVIDER: No future appointments. ALLERGIES Allergen [...] for c (more content not included)... Normal [facility] CONSULT PROGon 03-03-2020 CONSULT PROG HNO ID: [id number] Author: Berlin Fox (Pa) Service: Neurology ICU Author Type: Physician Block Making Machine Operator Type: Consult Progress Note Filed: 03/03/2020 8:40 AM Note Text: Neurology progress note: [facility] surgery planning for outpatient follow up Cont ASA and statin Follow up with neurology, information in d/c instructions and lady request sent Stroke warning symptoms given and when to get to ED. No further neurology work up okay to d/c when medically stable Will sign off. BERLIN FOX PA-C March 03, 2020 8:39 AM 1763 Normal [facility] NURSING PROGon 03-03-2020 NURSING PROG HNO ID: [id number] Author: Janny Aviles RN Service: Nursing Author Type: Registered Nurse Type: Nursing Progress Note Filed: 03/03/2020 11:59 AM Note Text: Discharge instructions reviewed with patient and . No further questions at this time. Stroke booklet given and reviewed with patient and . Normal [facility] THERAPY NTon 03-03-2020 THERAPY NT HNO ID: [id number] Author: Shirley Marie Service: Physical Therapy Author Type: Physical Therapist Type: Therapy (PT/OT/Speech/Resp) Filed: 03/03/2020 11:53 AM Note Text: Physical Therapy Evaluation SERVICE DATE: 03/03/2020 SERVICE TIME: 1035 to 1100 ROOM: [id number] Recommended Discharge Disposition: Home This patient is [...] ness on feet Interventions Provided: Evaluation;Gait Training (88528) $ Evaluation-Moderate (27054) Billed Units: 1 unit Gait Training (10290) Treatment Minutes: 10 $ Gait Training (93885) Billed Units: 1 unit Educated on gaze [...] DATE: March 03, 2020 TIME: 11:52 AM [facility] ALLIED HEALTHon 03-02-2020 ALLIED HEALTH HNO ID: [id number] Author: Dyan Perrin (Rt) Service: Radiology Author Type: Wallpaper Installer Type: Allied Health Filed: 03/02/2020 1:57 PM [...] RT Marychuy March 02, 2020 1:57 PM [facility] CASE MANAGEMon 03-02-2020 CASE MANAGEM HNO ID: [id number] Author: MARTIN Bird (Lisw) Service: Social Work Author Type: Development Writer Type: Care Mgt Progress Note Filed: 03/02/2020 4:16 PM Note Text: CARE MANAGEMENT PROGRESS NOTE SERVICE DATE: 03/02/2020 SERVICE TIME: 4:15 PM LOS: 3 days IMM Follow Up Copy Given: Yes Copy given to:: Patient Method: In Person IM letter given to patient SIGNATURE: MRATIN Bird PATIENT NAME: Rancho Muller DATE: March 02, 2020 TIME: 4:15 PM PAGER/CONTACT #: [phone] [facility] CASE MGT INIT ASSESon 2019 CASE MGT INIT ASSES HNO ID: [id number] Author: MARTIN Bird (Lisw) Service: Social Work Author Type: Development Writer Type: Care Mgt Initial Assessment Filed: 03/02/2020 12:49 PM Note Text: CARE MANAGEMENT: ASSESSMENT AND DISCHARGE PLAN SERVICE DATE: March 02, 2020 SERVICE TIME: 12:44 PM PRIMARY CARE PHYSICIAN: Mariela King MD ADMISSION STATUS: Inpatient Needs Prior to Discharge: OT/PT Evaluation;Patient/Fam nick MEDICAL: [employer] MEDICARE PPO Patient/[place] Edger Stated Goals: To have reduction in symptoms Health Insurance: Aet Health Issues Impacting Discharge Plan: Newly diagnosed Newly Diagnosed: Aphasia Chronic: S/P CABG 2000,R ICA stenosis Last Discharge Date: 06/17/05 Is this Within the Past 30 days? Last discharge within 30 days: No Advance Directive: Current Advance Directive: Health Care Power of Business Operations Coordinator In Chart: Yes Up To Date and [...] Cane Has the Patient Been in a Nursing Home Facility in the Past 30 days?: No SOCIAL: Living Arrangements: Home Lives With: Spouse Financial Resources: Retired Primary Contact: Extended Emergency Contact Information Primary Emergency Contact: LEA MULLER Address: [address] [place] [address] Mobile Relation: Spouse Supportive Patient Contact:: Yes [...] Completely I feel financially burdened by my [id number] expenses for my prescription medication:: 0 - Disagree Completely Risk Score: 0 Patient is categorized as: Low risk < 2 Are you interested in bedside delivery of your medications? No Is Patient Psychosocially Complex?: No ASSESSMENT AND PLAN: Medical Needs: Medical Needs: Two or more chronic diseases Psychosocial Needs: Psychosocial Needs: None FREEDOM OF CHOICE EXPLAINED: [place] of Choice Given: No Reason Not Given: Unable to complete with this assessment - revisit POTENTIAL TRANSITION PLANS Home;Outpatient Therapy Met with patient and his .Patient lives with and uses a cane. Patient has been independent with ADL's prior to admission. Pharmacies at [facility] in [place] if urgent but tries to use [facility] .Await PT/OT.berta. Plan is home by car with when medically stable. SIGNATURE: MARTIN Bird PATIENT NAME: Rancho Muller DATE: March 02, 2020 TIME: 12:44 PM PAGER/CONTACT #: [phone] [facility] CONSULT PROGon 03-02-2020 CONSULT PROG HNO ID: [id number] Author: Berlin Ram) Maciel Service: Neurology ICU Author Type: Physician Block Making Machine Operator Type: Consult Progress Note Filed: 03/02/2020 4:23 [...] touch COORDINATION: Finger-to- nose-finger intact bilaterally and Dscw-lu-pzsp intact bilaterally GAIT: Not assessed DATA: Diagnostic [...] Units SUB (more content not included)... Normal [facility] MRI BRAIN WO IVCONon 020 MRI BRAIN [...] be excluded in the appropriate clinical setting. Compression Molding Machine Tender: PSCB Transcribe Date/Time: Mar 02 2020 2:45P Dictated by : KINGSLEY SALDANA MD This examination was interpreted and the report reviewed and electronically signed by: KINGSLEY SALDANA MD on Mar 02 2020 2:57PM EST Normal [facility] Basic metabolic 2000 panelon 02-29-2020 Anion gap [Moles/Vol] 9 mmol/L Normal 9-18 [facility] Comment on above: Order Comment: Speci men Type: BLOOD SPECIMEN Performed By: #### 2 4321-2, , 2776-05 #### [facility] CLIA [id number] [address] [place] [address] Calcium [Mass/Vol] 9.4 mg/dL Normal 8.5-10.2 [facility] Comment on above: Order Comment: Speci men Type: BLOOD SPECIMEN Performed By: #### 2 4321-2, , 2776-05 #### [facility] CLIA [id number] [address] [place] [address] Chloride [Moles/Vol] 102 mmol/L Normal 97-105 [facility] Comment on above: Order Comment: Speci men Type: BLOOD SPECIMEN Performed By: #### 2 1-2, , 2776-05 #### [facility] CLIA [id number] [address] [place] [address] CO2 [Moles/Vol] 26 mmol/L Normal 22-30 [facility] Comment on above: Order Comment: Speci men Type: BLOOD SPECIMEN Performed By: #### 2 1-2, , 2776-05 #### [facility] CLIA [id number] [address] [place] [address] Creatinine [Mass/Vol] 1.11 mg/dL Normal 0.73-1.22 [facility] Comment on above: Order Comment: Speci men Type: BLOOD SPECIMEN Performed By: #### 2 4321-2, , 2776-05 #### [facility] CLIA [id number] [address] [place] [address] GFR/1.73 sq M.predicted MDRD (S/P/Bld) [Vol rate/Area] mL/min/{1.73_m2} Normal [facility] Comment on above: Order Comment: Speci men [...] By: #### 2 4320-2, , 2776-05 #### [facility] CLIA [id number] [address] [place] [address] Glucose [Mass/Vol] 99 mg/dL Normal 74-99 [facility] Comment on above: Order Comment: Speci men Type: BLOOD SPECIMEN Result Comment: The [place] Diabetes Association (ADA) provides guidance for cutoff [...] Standards of Medical Care in Diabetes 2016, [place] Diabetes Association. Diabetes Care. 2016.39(Suppl 1). Performed By: #### 2 4320-2, , 2776-05 #### [facility] CLIA [id number] [address] [place] [address] Potassium [Moles/Vol] 4.4 mmol/L Normal 3.7-5.1 [facility] Comment on above: Order Comment: Speci men Type: BLOOD SPECIMEN Performed By: #### 2 4320-2, , 2776-05 #### [facility] CLIA [id number] [address] [place] [address] Sodium [Moles/Vol] 137 mmol/L Normal 136-144 [facility] Comment on above: Order Comment: Speci men Type: BLOOD SPECIMEN Performed By: #### 2 4320-2, , 2776-05 #### [facility] CLIA [id number] [address] [place] [address] Urea nitrogen [Mass/Vol] 16 mg/dL Normal 9-24 [facility] Comment on above: Order Comment: Speci men Type: BLOOD SPECIMEN Performed By: #### 2 4321-2, , 2776-05 #### [facility] CLIA [id number] [address] [place] [address] CBC panel Auto (Bld)on 02-28 Erythrocyte distribution width (RBC) [Ratio] 14.1 % Normal 11.5-15.0 [facility] Comment on above: Order Comment: Speci men Type: BLOOD SPECIMEN Performed By: #### 2 432-2, , 2776-05 #### [facility] CLIA [id number] [address] [place] [address] Hematocrit (Bld) [Volume fraction] 43.5 % Normal 39.0-51.0 [facility] Comment on above: Order Comment: Speci men Type: BLOOD SPECIMEN Performed By: #### 2 4321-2, , 2776-05 #### [facility] CLIA [id number] [address] [place] [address] Hemoglobin (Bld) [Mass/Vol] 14.9 g/dL Normal 13.0-17.0 [facility] Comment on above: Order Comment: Speci men Type: BLOOD SPECIMEN Performed By: #### 2 4321-2, , 2776-05 #### [facility] CLIA [id number] [address] [place] [address] MCH (RBC) [Entitic mass] 31.8 pg Normal 26.0-34.0 [facility] Comment on above: Order Comment: Speci men Type: BLOOD SPECIMEN Performed By: #### 2 4321-2, , 2776-05 #### [facility] CLIA [id number] [address] [place] [address] MCHC (RBC) [Mass/Vol] 34.3 g/dL Normal 30.5-36.0 [facility] Comment on above: Order Comment: Speci men Type: BLOOD SPECIMEN Performed By: #### 2 4321-2, , 2776-05 #### [facility] CLIA [id number] [address] [place] [address] MCV (RBC) [Entitic vol] 92.8 fL Normal 80.0-100.0 [facility] Comment on above: Order Comment: Speci men Type: BLOOD SPECIMEN Performed By: #### 2 1-2, , 2776-05 #### [facility] CLIA [id number] [address] [place] [address] Nucleated RBC (Bld) [#/Vol] 10*3/uL Normal <0.01 [facility] Comment on above: Order Comment: Speci men Type: BLOOD SPECIMEN Performed By: #### 2 4320-2, , 2776-05 #### [facility] CLIA [id number] [address] [place] [address] Platelet mean volume (Bld) [Entitic vol] 9.3 fL Normal 9.0-12.7 [facility] Comment on above: Order Comment: Speci men Type: BLOOD SPECIMEN Performed By: #### 2 1-2, , 2776-05 #### [facility] CLIA [id number] [address] [place] [address] Platelets (Bld) [#/Vol] 243 10*3/uL Normal 150-400 [facility] Comment on above: Order Comment: Speci men Type: BLOOD SPECIMEN Performed By: #### 2 4321-2, , 2776-05 #### [facility] CLIA [id number] [address] [place] [address] RBC (Bld) [#/Vol] 4.69 10*6/uL Normal 4.20-6.00 [facility] Comment on above: Order Comment: Speci men Type: BLOOD SPECIMEN Performed By: #### 2 4321-2, , 2776-05 #### [facility] CLIA [id number] [address] [place] [address] WBC (Bld) [#/Vol] 11.23 10*3/uL High 3.70-11.00 [facility] Comment on above: Order Comment: Speci men Type: BLOOD SPECIMEN Performed By: #### 2 4321-2, 94399-4, 2777- #### [facility] CLIA [id number] [address] [place] [address] CONSULTon 02-29-2020 CONSULT HNO ID: [id number] Author: Bandar Calhoun MD Service: Neurology Stroke Author Type: Physician Type: Consults Filed: 02/29/2020 11:43 AM Note Text: NEURO STROKE INITIAL CONSULT SERVICE DATE: 02/29/2020 SERVICE TIME: 1000 REQUESTING PHYSICIAN: Carina PCP: Mariela King MD REASON FOR STROKE EVALUATION: recurrent aphasia Subjective HPI: This is an 84 year old RH male transferred from [facility] due to symptoms of recurrent aphasia. He has a history of CAD, s/p CABG in 2000. Patient reports developing acute onset confusion, difficulty getting words out, with associated dyspnea on 02/25 afternoon, he then presented to [facility] where he was [...] sustained a provoked fall while handling the tire changer, fall on his back injuring the neck. Pre-admission Was patient on antithrombotic agent prior to admission: Antiplatelet Antiplatelet: Aspirin Was patient on lipid lowering agent prior to admission: Statin Pre-morbid mRS: Premorbid Modified [place] Score: 0 - No symptoms at all PAST MEDICAL HISTORY Diagnosis Date - Cardiomegaly - Chronic depressive personality disorder - COPD (chronic obstructive pulmonary disease) (HCC) - Coronary atherosclerosis of unspecified type of vessel, [place] or graft - Depression - Displacement of [...] HEART CATHETERIZATION 12-09-2009 Cardiac cath, R heart, [facility] Social History Tobacco Use - Smoking [...] active a (more content not included)... Normal [facility] HGB A1Con 02-29-2020 Average glucose Estimated from glycated hemoglobin (Bld) [Mass/Vol] 100 mg/dL Normal [facility] Comment on above: Order Comment: Speci men Type: BLOOD SPECIMEN Result Comment: eAG: (Estimated average glucose) is a calculated value from HgbA1c and is customer account representative of the average blood glucose level in the last 2-3 month period. Performed By: #### H BA1C #### [facility] CLIA [id number] [address] [place] [address] HbA1c (Bld) [Mass fraction] 5.1 % Normal 4.3-5.6 [facility] Comment on above: Order Comment: Speci men Type: BLOOD SPECIMEN Performed By: #### H BA1C #### [facility] CLIA [id number] [address] [place] [address] LIPID PANEL BASICon 02-29-20 20 Cholesterol [Mass/Vol] 121 mg/dL Normal <200 [facility] Comment on above: Order Comment: Speci men Type: BLOOD SPECIMEN Result Comment: <200 mg/dL, Desirable 200-239 mg/dL, Borderline high >239 mg/dL, High Performed By: #### 2 4321-2, , 2776-05 #### [facility] CLIA [id number] [address] [place] [address] Cholesterol in HDL [Mass/Vol] 39 mg/dL Low >39 [facility] Comment on above: Order Comment: Speci men Type: BLOOD SPECIMEN Result Comment: 40-5 9 mg/dL, Acceptable >59 mg/dL, High: Negative risk factor for coronary heart disease <40 mg/dL, Low: Positive risk factor for coronary heart disease Performed By: #### 2 4321-2, , 2776-05 #### [facility] CLIA [id number] [address] [place] [address] Cholesterol in LDL [Mass/Vol] 47 mg/dL Normal <100 [facility] Comment on above: Order Comment: Speci men Type: BLOOD SPECIMEN Result Comment: <100 mg/dL, Optimal 100-129 mg/dL, Near optimal/above optimal 130-159 mg/dL, Borderline high 160-189 mg/dL, High >189 mg/dL, Very high Secondary prevention optimal LDL Cholesterol levels are recommended to be < 70 mg/dL Performed By: #### 2 4321-2, , 2776-05 #### [facility] CLIA [id number] [address] [place] [address] Cholesterol in LDL/Cholesterol in HDL [Mass ratio] 1.21 {ratio} Normal <2.54 [facility] Comment on above: Order Comment: Speci men Type: BLOOD SPECIMEN Result Comment: Refe rence: 1. National Cholesterol Education Program ATP III Guideline At-A-Glance Quick Desk Reference: National Heart, Lung, and Blood [place]. National Institutes of Health. 2001: NIH Publication No. 01-3305. 2. An International Atherosclerosis Society position paper: global recommendations for the management of dyslipidemia: executive summary, Atherosclerosis. 2014: 232(2):410-413. Performed By: #### 2 4321-2, , 2776-05 #### [facility] CLIA [id number] [address] [place] [address] Cholesterol in VLDL [Mass/Vol] 35 mg/dL High <30 [facility] Comment on above: Order Comment: Speci men Type: BLOOD SPECIMEN Performed By: #### 2 1-2, , 2776-05 #### [facility] CLIA [id number] [address] [place] [address] Cholesterol non HDL [Mass/Vol] 82 mg/dL Normal <130 [facility] Comment on above: Order Comment: Speci men Type: BLOOD SPECIMEN Result Comment: <130 mg/dL, Optimal 130-159 mg/dL, Near optimal/above optimal 160-189 mg/dL, Borderline high 190-219 mg/dL, High >219 mg/dL, Very high Secondary prevention optimal non HDL Cholesterol levels are recommended to be <100 mg/dL Performed By: #### 2 1-2, , 2776-05 #### [facility] CLIA [id number] [address] [place] [address] Cholesterol.total/Cho lesterol in HDL [Mass ratio] 3.10 {ratio} Normal <5.10 [facility] Comment on above: Order Comment: Speci men Type: BLOOD SPECIMEN Performed By: #### 2 4320-2, , 2776-05 #### [facility] CLIA [id number] [address] [place] [address] FASTING TIME 9 hrs Normal [facility] Comment on above: Order Comment: Speci men Type: BLOOD SPECIMEN Performed By: #### 2 1-2, , 2776-05 #### [facility] CLIA [id number] [address] [place] [address] Triglyceride [Mass/Vol] 177 mg/dL High <150 [facility] Comment on above: Order Comment: Speci men Type: BLOOD SPECIMEN Result Comment: <150 mg/dL, Normal 150-199 mg/dL, Borderline high 200-499 mg/dL, High >499 mg/dL, Very high Performed By: #### 2 4321-2, , 2776-05 #### [facility] CLIA [id number] [address] [place] [address] TSH SerPl-aCncon 02-29-2020 TSH Qn 1.040 m[IU]/L Normal 0.270-4.200 [facility] Comment on above: Order Comment: Speci men Type: BLOOD SPECIMEN Performed By: #### 2 4321-2, , 2776-05 #### [facility] CLIA [id number] [address] [place] [address] Urinalysis complete panel (U )on 02-29-2020 Bacteria LM.HPF (Urine sed) [#/Area] None Seen Normal None Seen [facility] Comment on above: Order Comment: Speci men Type: BLOOD SPECIMEN Performed By: #### 2 4321-2, , 2776-05 #### [facility] CLIA [id number] [address] [place] [address] Bilirubin Ql (U) Negative Normal Negative [facility] Comment on above: Order Comment: Speci men Type: BLOOD SPECIMEN Performed By: #### 2 4321-2, , 2776-05 #### [facility] CLIA [id number] [address] [place] [address] Clarity (Unsp spec) Clear Normal Clear [facility] Comment on above: Order Comment: Speci men Type: BLOOD SPECIMEN Performed By: #### 2 4321-2, , 2776-05 #### [facility] CLIA [id number] [address] [place] [address] Color (U) Yellow Normal Yellow [facility] Comment on above: Order Comment: Speci men Type: BLOOD SPECIMEN Performed By: #### 2 4321-2, , 2776-05 #### [facility] CLIA [id number] [address] [place] [address] Epithelial cells LM.HPF (Urine sed) [#/Area] 0.3 /[HPF] Normal [facility] Comment on above: Order Comment: Speci men Type: BLOOD SPECIMEN Performed By: #### 2 4321-2, , 2776-05 #### [facility] CLIA [id number] [address] [place] [address] Glucose Test strip (U) [Mass/Vol] Negative Normal Negative [facility] Comment on above: Order Comment: Speci men Type: BLOOD SPECIMEN Performed By: #### 2 4321-2, , 2776-05 #### [facility] CLIA [id number] [address] [place] [address] Hemoglobin Ql (U) Negative Normal Negative [facility] Comment on above: Order Comment: Speci men Type: BLOOD SPECIMEN Performed By: #### 2 4321-2, , 2776-05 #### [facility] CLIA [id number] [address] [place] [address] Hyaline casts (Urine sed) [#/Area] 0 /[LPF] Normal 0 /LPF [facility] Comment on above: Order Comment: Speci men Type: BLOOD SPECIMEN Performed By: #### 2 4321-2, , 2776-05 #### [facility] CLIA [id number] [address] [place] [address] Ketones Ql (U) Negative Normal Negative [facility] Comment on above: Order Comment: Speci men Type: BLOOD SPECIMEN Performed By: #### 2 4321-2, , 2776-05 #### [facility] CLIA [id number] [address] [place] [address] Leukocyte esterase Test strip Ql (U) Negative Normal Negative [facility] Comment on above: Order Comment: Speci men Type: BLOOD SPECIMEN Performed By: #### 2 4321-2, , 2776-05 #### [facility] CLIA [id number] [address] [place] [address] Nitrite Ql (U) Negative Normal Negative [facility] Comment on above: Order Comment: Speci men Type: BLOOD SPECIMEN Performed By: #### 2 4321-2, , 2776-05 #### [facility] CLIA [id number] [address] [place] [address] pH (U) 5.5 [pH] Normal 5.0-8.0 [facility] Comment on above: Order Comment: Speci men Type: BLOOD SPECIMEN Performed By: #### 2 4321-2, , 2776-05 #### [facility] CLIA [id number] [address] [place] [address] Protein (U) [Mass/Vol] Negative Normal Negative [facility] Comment on above: Order Comment: Speci men Type: BLOOD SPECIMEN Performed By: #### 2 1-2, , 2776-05 #### [facility] CLIA [id number] [address] [place] [address] RBC LM.HPF (Urine sed) [#/Area] 0-3 /HPF Normal 0-3 /HPF [facility] Comment on above: Order Comment: Speci men Type: BLOOD SPECIMEN Performed By: #### 2 1-2, , 2776-05 #### [facility] CLIA [id number] [address] [place] [address] Specific gravity (U) [Rel density] 1.043 High 1.005-1.030 [facility] Comment on above: Order Comment: Speci men Type: BLOOD SPECIMEN Performed By: #### 2 1-2, , 2776-05 #### [facility] CLIA [id number] [address] [place] [address] Urobilinogen Ql (U) 0.2 EU/dL Normal 0.2-1.0 EU/dL [facility] Comment on above: Order Comment: Speci men Type: BLOOD SPECIMEN Performed By: #### 2 4321-2, , 2776-05 #### [facility] CLIA [id number] [address] [place] [address] WBC LM.HPF (Urine sed) [#/Area] 0-5 /HPF Normal 0-5 /HPF [facility] Comment on above: Order Comment: Speci men Type: BLOOD SPECIMEN Performed By: #### 2 1-2, , 2776-05 #### [facility] CLIA [id number] [address] [place] [address] VITAMIN B12 BLOODon 02-29-20 20 Cobalamin (Vitamin B12) [Mass/Vol] 305 pg/mL Normal 232-1,245 [facility] Comment on above: Order Comment: Speci men Type: BLOOD SPECIMEN Performed By: #### 2 4321-2, 64050-1, 2777-1 #### [facility] CLIA [id number] [address] [place] [address] CONSULTon 02-28-2020 CONSULT HNO ID: [id number] Author: Eber Rios DO Service: Vascular Surgery [...] in 2000. He states he admitted at [facility] Monday and Monday [...] Coronary atherosclerosis of unspecified type of vessel, [place] or graft - Depression - Displacement of intervertebral disc, site unspecified, without myelopathy - Esophageal reflux - Lumbosacral spondylosis without myelopathy - Other and unspecified hyperlipidemia - PAD (peripheral artery disease) ([facility]) - Right bundle branch block - Spinal [...] ORAL DAILY (more content not included)... Normal [facility] HISTORY PHYSICALon 0 HISTORY PHYSICAL HNO ID: [id number] Author: Regla Lyles Service: Hospital Medicine Author [...] NIGHT AND WEEKEND COVERAGE: After 7pm call #[phone] Chief complaint: Aphasia, right hand numbness HPI: This is a 84 year old male with PMHx of COPD, HTN, and HLD. He was admitted from Monday to evening at [facility] after similar presentation of confusion. 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 He presented to [facility] after being confused and slurring speech this morning which has now resolved. Due to symptoms of right arm numbness and continued concern for TIAs he was transferred to [facility]. On my exam he states he has [...] disorder - COPD (chronic obstructive pulmonary disease) ([facility]) - Coronary atherosclerosis of unspecified type of vessel, [place] or graft - Depression - Displacement of intervertebral disc, site unspecified, without myelopathy - Esophageal reflux - Lumbosacral spondylosis without myelopathy - Other and unspecified hyperlipidemia - PAD (peripheral artery disease) ([facility]) - Right bundle branch block - Spinal [...] HEART CATHETERIZATION 12-09-2009 Cardiac cath, R heart, [facility] FAMILY HISTORY Problem Relation Age of [...] thyroid symmetric (more content not included)... Normal [facility] NURSING PROGon 02-28-2020 NURSING PROG HNO ID: [id number] Author: Adriana Pedro (Rn) JESSENIA Pat Service: ? Author Type: Registered Nurse Type: Nursing Progress Note Filed: 02/28/2020 4:33 PM Note Text: Nursing Progress Note Patient Name: Rancho Muller Patient Location: [id number]/[facility]9100-9 [id number] __ Daily Note: 1606: SOUND PAGED REGARDING ADMISSION ORDERS. 1632: Spoke to Regla from [facility] emergency department. Stated would put in orders. This note was completed by: Adriana Pat, RN [facility] Office Visiton 01-09-2017 Dietary management education, guidance, and counseling (procedure) yes Invalid Interpretation Code [facility] Work Phone: [phone] Documentation of current medications (procedure) Done Invalid Interpretation Code [facility] Work Phone: [phone] Fall risk assessment No [facility] Work Phone: [phone] Protein mass conc Done [facility] Work Phone: [phone] Tobacco smoking status NHIS Former smoker [facility] Work Phone: [phone] Tobacco use [facility] Former smoker Invalid Interpretation Code [facility] Work Phone: [phone] Lab Report: Lipid Profileon 04-07-2016 Cholesterol 151 mg/dL 200 [facility] Work Phone: [phone] HDL Cholesterol 40 mg/dL [facility] Work Phone: [phone] LDL Cholesterol 77 mg/dL 0-130 [facility] Work Phone: [phone] Triglyceride 169 mg/dL [facility] Work Phone: [phone] very low density lipoproteins 34 mg/dL 5-40 [facility] Work Phone: [phone] Lab Report: Liver Profileon 04-07-2016 Alanine aminotransferase (ALT) 23 U/L 12-78 [facility] Work Phone: [phone] Albumin 3.4 g/dL 3.4-5.0 [facility] Work Phone: [phone] Alkaline phosphatase (ALP) 65 U/L Invalid Interpretation Code 45-117 [facility] Work Phone: [phone] ALP enzyme act/vol (Bld) 65 U/L 45-117 [facility] Work Phone: [phone] Aspartate aminotransferase (AST) 51 U/L High 15-37 [facility] Work Phone: [phone] Bilirubin (direct) 0.19 mg/dL 0.00-0.30 [facility] Work Phone: [phone] Bilirubin (total) 1.00 mg/dL 0.20-1.00 [facility] Work Phone: [phone] Globulin 3.5 g/dL Invalid Interpretation Code 2.3-3.5 [facility] Work Phone: [phone] Globulin mass conc (S) 3.5 g/dL 2.3-3.5 [facility] Work Phone: [phone] Protein 6.9 g/dL 6.4-8.2 [facility] Work Phone: [phone] Clinical Lists Updateon 07-30 Left ventricular Ejection fraction 65 % [facility] Work Phone: [phone] Lab Report: Immunoglobulins G/A/M/Shamar 06-27-2015 IgA 241 mg/dL 91-414 [facility] Work Phone: [phone] IgG 1009 mg/dL 700-1600 [facility] Work Phone: [phone] IgM 178 mg/dL 40-230 [facility] Work Phone: [phone] IMMUNO E 2173 24 [iU]/mL 0-100 [facility] Work Phone: [phone] immunoglobulin E, serum, quantitative 24 [iU]/mL Invalid Interpretation Code 0-100 [facility] Work Phone: [phone] Clinical Lists Update: [employer] 05-21-2015 BUN/Creatinine Ratio 10.6 mg/mg [facility] Work Phone: [phone] Calcium 8.8 mg/dL [facility] Work Phone: [phone] Chloride 101 mmol/L [facility] Work Phone: [phone] CO2 32.0 mmol/L Invalid Interpretation Code [facility] Work Phone: [phone] CO2 ppres (BldV) 32.0 mmol/L [facility] Work Phone: [phone] Creatinine 1.23 mg/dL [facility] Work Phone: [phone] Hematocrit (HCT) 42.6 % Invalid Interpretation Code [facility] Work Phone: [phone] Hematocrit Volume Fraction (Bld) 42.6 % [facility] Work Phone: [phone] Hemoglobin (HGB) 14.2 g/dL [facility] Work Phone: [phone] Platelets 183 10*3/mm3 Invalid Interpretation Code [facility] Work Phone: [phone] Platelets #/vol (Bld) 183 10*3/mm3 [facility] Work Phone: [phone] Potassium 3.9 mmol/L [facility] Work Phone: [phone] Sodium 139 mmol/L [facility] Work Phone: [phone] Urea nitrogen 13 mg/dL [facility] Work Phone: [phone] WBC #/vol (Bld) 9.7 10*3/uL [facility] Work Phone: [phone] WBC (Leukocytes) 9.7 10*3/uL Invalid Interpretation Code [facility] Work Phone: [phone] Office Visiton 05-26-2014 cardiac risk group C [facility] Work Phone: [phone] General cardiovascular disease 10Y risk [#] [place].D'Agost[place] N/A [facility] Work Phone: [phone] Lab Report: Liver Profileon 05-20-2014 ALK P 68 U/L 50-136 [facility] Work Phone: [phone] GE use only - for [employer] import when terms are not otherwise specified 68 U/L Invalid Interpretation Code 50-136 [facility] Work Phone: [phone] Office Visiton 05-08-2014 BNP 240 pg/mL High [facility] Work Phone: [phone] External Other: Preferred Me thod of Contacton 11-24-2013 methcontact phone [facility] Phone: [phone] Patient's prefered method of contact phone Invalid Interpretation Code [facility] Phone: [phone] 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 Albumin/Globulin Ratio 1.0 {ratio} [facility] Work Phone: [phone] Anion gap 7 mmol/L Invalid Interpretation Code [facility] Work Phone: [phone] Anion gap molar conc 7 mmol/L [facility] Work Phone: [phone] basophils as percent of blood leukocytes, manual count 0.3 % [facility] Work Phone: [phone] eosinophils as percent of blood leukocytes, manual count 0.9 % [facility] Work Phone: [phone] Erythrocyte distribution width Ratio (RBC) 13.8 % [facility] Work Phone: [phone] Erythrocytes (RBC) 4.37 10*6/uL Low [facility] Work Phone: [phone] Globulin 3.5 g/dL Invalid Interpretation Code [facility] Work Phone: [phone] Globulin mass conc (S) 3.5 g/dL [facility] Work Phone: [phone] Glucose 75 mg/dL Invalid Interpretation Code [facility] Work Phone: [phone] Glucose mass conc 75 mg/dL [facility] Work Phone: [phone] Lymphocytes/100 leukocytes 17.4 % Low [facility] Work Phone: [phone] Lymphocytes/100 WBC (Bld) 17.4 % Low [facility] Work Phone: [phone] MCH 31.8 pg Invalid Interpretation Code [facility] Work Phone: [phone] MCH Entitic mass (RBC) 31.8 pg [facility] Work Phone: [phone] MCHC 34.8 g/dL Invalid Interpretation Code [facility] Work Phone: [phone] MCHC mass conc (RBC) 34.8 g/dL [facility] Work Phone: [phone] MCV 91.5 fL Invalid Interpretation Code [facility] Work Phone: [phone] MCV Entitic volume (RBC) 91.5 fL [facility] Work Phone: [phone] Monocytes/100 leukocytes 13.2 % High [facility] Work Phone: [phone] Monocytes/100 WBC (Bld) 13.2 % High [facility] Work Phone: [phone] neutrophils, band form as percent of blood leukocytes, manual count 67.8 % [facility] Work Phone: [phone] Platelet mean volume Entitic volume (Bld) 8.9 fL [facility] Work Phone: [phone] 00 PMV by Estrella 8.9 fL Invalid Interpretation Code [facility] Work Phone: [phone] RBC #/vol (Bld) 4.37 10*6/uL Low [facility] Work Phone: [phone] RDW-CA 13.8 % Invalid Interpretation Code [facility] Work Phone: Replaced Document: Kassy Young 08-15-2012 BUN (urea nitrogen) Sinus Bradycardia -Right bundle branch block . ABNORMAL Invalid Interpretation Code [facility] Work Phone: EKG QRS axis 27 deg [facility] Work Phone: P [place] 64 deg [facility] Work Phone: P wave axis, electrocardiogram 64 deg Invalid Interpretation Code [facility] Work Phone: WA Interval 158 ms [facility] Work Phone: WA interval, electrocardiogram 158 ms Invalid Interpretation Code [facility] Work Phone: Pulse (Heart Rate) 50 /min Invalid Interpretation Code [facility] Work Phone: Pulse (Heart Rate) 416 ms Invalid Interpretation Code [facility] Work Phone: QRS axis, electrocardiogram 27 deg Invalid Interpretation Code [facility] Work Phone: QRS Duration 164 ms [facility] Work Phone: QRS duration, electrocardiogram 164 ms Invalid Interpretation Code [facility] Work Phone: QT Interval new path ms [facility] Work Phone: QT interval, electrocardiogram new path ms Invalid Interpretation Code [facility] Work Phone: T [place] 50 deg [facility] Work Phone: T wave axis, electrocardiogram 50 deg Invalid Interpretation Code [facility] Work Phone: Urea nitrogen mass conc Sinus Bradycardia -Right bundle branch block . ABNORMAL [facility] Work Phone: Vital Signs Date Time Vital Sign Value Performing Clinician Faci dereje 01-03-2025 10:32-0400 Body height 182.[address] Mariela King MD Work Phone: [facility] 01-03-2025 10:32-0400 Body mass index (BMI) [Ratio] 29.7 kg/m2 Dr. Mariela King MD Work Phone: [facility] 01-03-2025 10:32-0400 Body weight 99.[address] Mariela King MD Work Phone: [facility] 01-03-2025 10:32-0400 Diastolic blood pressure 69 mm[Hg] Dr. Mariela King MD Work Phone: [facility] 01-03-2025 10:32-0400 Heart rate 60 /min Dr. Mariela King MD Work Phone: [facility] 01-03-2025 10:32-0400 Respiratory rate 16 /min Dr. Mariela King MD Work Phone: [phone] [address] 01-03-2025 10:32-0400 SaO2% (BldA) [Mass fraction] 92 % Dr. Mariela King MD Work Phone: [phone] [place] [address] 01-03-2025 10:32-0400 Systolic blood pressure 172 mm[Hg] Dr. Mariela King MD Work Phone: [phone] [place] [address] 01-03-2023 12:10-0400 Diastolic blood pressure 69 mm[Hg] Dr. Mariela King Work Phone: [phone] [place] [address] 01-03-2023 12:10-0400 Heart rate 72 /min Dr. Mariela King Work Phone: [facility] 01-03-2023 12:10-0400 Respiratory rate 15 /min Dr. Mariela King Work Phone: [facility] 01-03-2023 12:10-0400 SaO2% (BldA) [Mass fraction] 98 % Dr. Mariela King Work Phone: [facility] 01-03-2023 12:10-0400 Systolic blood pressure 127 mm[Hg] Dr. Mariela King Work Phone: [facility] 01-03-2023 08:14-0400 Body height 182.[address] Mariela King Work Phone: [facility] 01-03-2023 08:14-0400 Body temperature 97.1 [degF] Dr. Mariela King Work Phone: [facility] 10-24-2022 11:02-0400 Body mass index (BMI) [Ratio] 29.8 kg/m2 Dr. Mariela King Work Phone: [facility] 10-24-2022 11:02-0400 Body weight 99.[address] Mariela King Work Phone: [facility] 10-24-2022 11:02-0400 Diastolic blood pressure 78 mm[Hg] Dr. Mariela King Work Phone: [facility] 10-24-2022 11:02-0400 Heart rate 62 /min Dr. Mariela King Work Phone: [facility] 10-24-2022 11:02-0400 Respiratory rate 18 /min Dr. Mariela Knig Work Phone: [facility] 10-24-2022 11:02-0400 SaO2% (BldA) [Mass fraction] 94 % Dr. Mariela King Work Phone: [facility] 10-24-2022 11:02-0400 Systolic blood pressure 135 mm[Hg] Dr. Mariela King Work Phone: [facility] 02-22-2022 09:56-0400 Body height 182.[address] Mariela King Work Phone: [facility] Work Phone: 02-22-2022 09:56-0400 Diastolic blood pressure 70 mm[Hg] Dr. Mariela King Work Phone: [facility] Work Phone: 02-22-2022 09:56-0400 Systolic blood pressure 130 mm[Hg] Dr. Mariela King Work Phone: [facility] Work Phone: 02-22-2022 09:56-0400 Body mass index (BMI) [Ratio] 29.8 kg/m2 Dr. Mariela King Work Phone: [facility] Work Phone: 02-22-2022 09:56-0400 Body weight 99.[address] Mariela King Work Phone: [facility] Work Phone: 02-22-2022 09:56-0400 Heart rate 67 /min Dr. Mariela King Work Phone: [facility] Work Phone: 02-22-2022 09:56-0400 Respiratory rate 18 /min Dr. Mariela King Work Phone: [facility] Work Phone: 02-22-2022 09:56-0400 SaO2% (BldA) [Mass fraction] 95 % Dr. Mariela King Work Phone: [facility] Work Phone: 08-25-2021 09:00-0400 Body height 182.[address] Mariela King Work Phone: [facility] Work Phone: 08-25-2021 09:00-0400 Body mass index (BMI) [Ratio] 29.2 kg/m2 Dr. Mariela King Work Phone: [facility] Work Phone: 08-25-2021 09:00-0400 Body weight 97.[address] Mariela King Work Phone: [facility] Work Phone: 08-25-2021 09:00-0400 Diastolic blood pressure 75 mm[Hg] Dr. Mariela King Work Phone: [facility] Work Phone: 08-25-2021 09:00-0400 Heart rate 71 /min Dr. Mariela King Work Phone: [facility] Work Phone: 08-25-2021 09:00-0400 Respiratory rate 18 /min Dr. Mariela King Work Phone: [facility] Work Phone: 08-25-2021 09:00-0400 SaO2% (BldA) [Mass fraction] 94 % Dr. Mariela King Work Phone: [facility] Work Phone: 08-25-2021 09:00-0400 Systolic blood pressure 140 mm[Hg] Dr. Mariela King Work Phone: [facility] Work Phone: 07-19-2021 20:05-0400 Respiratory rate 18 /min Dr. Mariela King Work Phone: [facility] Work Phone: 07-19-2021 19:15-0400 Diastolic blood pressure 76 mm[Hg] Dr. Mariela King Work Phone: [facility] Work Phone: 07-19-2021 19:15-0400 Heart rate 68 /min Dr. Mariela King Work Phone: [facility] Work Phone: 07-19-2021 19:15-0400 SaO2% (BldA) [Mass fraction] 98 % Dr. Mariela King Work Phone: [facility] Work Phone: 07-19-2021 19:15-0400 Systolic blood pressure 156 mm[Hg] Dr. Mariela King Work Phone: [facility] Work Phone: 07-19-2021 17:24-0400 Body height 182.[address] Mariela King Work Phone: [facility] Work Phone: 07-19-2021 17:24-0400 Body mass index (BMI) [Ratio] 29.2 kg/m2 Dr. Mariela King Work Phone: [facility] Work Phone: 07-19-2021 17:24-0400 Body temperature 97.2 [degF] Dr. Mariela King Work Phone: [facility] Work Phone: 07-19-2021 17:24-0400 Body weight 97.[address] Mariela King Work Phone: [facility] Work Phone: 05-24-2021 08:29-0500 Body mass index (BMI) [Ratio] 29.1 kg/m2 Dr. Mariela King Work Phone: [facility] Work Phone: 05-24-2021 08:29-0500 Body weight 97.[address] Mariela King Work Phone: [facility] Work Phone: 05-24-2021 08:29-0500 Diastolic blood pressure 59 mm[Hg] Dr. Mariela King Work Phone: [facility] Work Phone: 05-24-2021 08:29-0500 Heart rate 57 /min Dr. Mariela King Work Phone: [facility] Work Phone: 05-24-2021 08:29-0500 Respiratory rate 18 /min Dr. Mariela King Work Phone: [facility] Work Phone: 05-24-2021 08:29-0500 SaO2% (BldA) [Mass fraction] 97 % Dr. Mariela King Work Phone: [facility] Work Phone: 05-24-2021 08:29-0500 Systolic blood pressure 104 mm[Hg] Dr. Mariela King Work Phone: [facility] Work Phone: 04-23-2021 10:16-0500 Body temperature 98.1 [degF] Dr. Mariela King Work Phone: [facility] Work Phone: 04-23-2021 10:16-0500 Diastolic blood pressure 57 mm[Hg] Dr. Mariela King Work Phone: [facility] Work Phone: 04-23-2021 10:16-0500 Heart rate 64 /min Dr. Mariela King Work Phone: [facility] Work Phone: 04-23-2021 10:16-0500 Respiratory rate 16 /min Dr. Mariela King Work Phone: [facility] Work Phone: 04-23-2021 10:16-0500 SaO2% (BldA) [Mass fraction] 92 % Dr. Mariela King Work Phone: [facility] Work Phone: 04-23-2021 10:16-0500 Systolic blood pressure 146 mm[Hg] Dr. Mariela King Work Phone: [facility] Work Phone: 04-21-2021 11:27-0500 Body weight 97.[address] Mariela King Work Phone: [facility] Work Phone: 03-26-2021 16:54-0500 Body mass index (BMI) [Ratio] 29.6 kg/m2 Dr. Mariela King Work Phone: [facility] Work Phone: 03-26-2021 13:39-0500 Body temperature 97.7 [degF] Dr. Mariela King Work Phone: [facility] Work Phone: 03-26-2021 13:39-0500 Diastolic blood pressure 61 mm[Hg] Dr. Mariela King Work Phone: [facility] Work Phone: 03-26-2021 13:39-0500 Heart rate 91 /min Dr. Mariela King Work Phone: [facility] Work Phone: 03-26-2021 13:39-0500 Respiratory rate 18 /min Dr. Mariela King Work Phone: [facility] Work Phone: 03-26-2021 13:39-0500 SaO2% (BldA) [Mass fraction] 92 % Dr. Mariela King Work Phone: [facility] Work Phone: 03-26-2021 13:39-0500 Systolic blood pressure 148 mm[Hg] Dr. Mariela King Work Phone: [facility] Work Phone: 03-23-2021 13:36-0500 Body weight [address] Mariela King Work Phone: [facility] Work Phone: 03-23-2021 05:39-0500 Body mass index (BMI) [Ratio] 29.6 kg/m2 Dr. Mariela King Work Phone: [facility] Work Phone: 01-09-2017 15:50-0400 BMI (Body Mass [...] Non-patient / Non-visit Dr. Mariela kern MD -[facility] Start: 01-20-2025 End: 01-20-[address] Mariela King MD Work Phone: -Cardiovascular Services Start: 01-20-2025 End: 01-20-[address] Mark Paris MD -Cardiovascular Services Work Phone: Start: 01-20-2025 End: 01-20-2025 ambulatory Mariela King Facility:[facility] Start: 01-03-2025 End: 01-03-[address] Mark Paris MD -[facility] Work Phone: Start: 01-03-2025 End: 01-03-[address] Mariela King MD Work Phone: -[facility] Start: 10-16-2024 End: 10-16-[address] Mariela King MD -Physical Therapy Work Phone: Start: 10-16-2024 End: 10-16-[address] Mariela King MD Work Phone: -Physical Therapy Start: 01-27-2023 End: 01-27-[address] Mariela King Work Phone: [facility] Work Phone: Start: 01-27-2023 End: 01-27-[address] Mariela King Work Phone: [facility] Work Phone: Start: 01-03-2023 End: 01-03-2023 Emergency department patient visit Dr. Mariela King Work Phone: [facility]-Emergency Department Work Phone: Start: 10-24-2022 End: 10-24-[address] Mariela King Work Phone: [facility] Work Phone: Start: 02-22-2022 End: 02-22-[address] Mariela King Work Phone: [facility] Work Phone: Start: 02-22-2022 End: 02-22-[address] Mariela King Work Phone: [facility] Start: 2021 End: [address] Mariela King Work Phone: [facility] Start: 09-09-2021 Non-patient / Non-visit Dr. Dylan King Work Phone: [facility] Start: 09-09-2021 End: 09-09-[address] [facility] Start: 08-30-2021 End: 08-30-[address] Mariela King Work Phone: [facility] Start: 08-25-2021 End: 08-25-[address] Mariela King Work Phone: [facility] Start: 07-19-2021 End: 07-19-2021 Emergency department patient visit Dr. Mariela King Work Phone: [facility]Emergency Department Start: 06-25-2021 End: 06-25-[address] [facility] Start: 06-25-[address] Mar[facility] King [facility] Start: 05-24-2021 End: 05-24-[address] Mariela King Work Phone: [facility] Start: 05-20-2021 End: 05-20-[address] Mariela King Work Phone: [facility] Start: 05-05-2021 End: 05-05-[address] Mariela King Work Phone: [facility] Start: 03-26-2021 End: 04-23-2021 Evaluation and management of inpatient Dr. Mariela King Work Phone: [facility]-Transitional Care Unit Start: 03-26-2021 Non-patient / Non-visit Dr. Dylan King Work Phone: [facility] Start: 03-25-2021 Non-patient / Non-visit Dr. Dylan King Work Phone: [facility] Start: 03-24-2021 Non-patient / Non-visit Dr. Dylan King Work Phone: [facility] Start: 03-23-2021 Non-patient / Non-visit Dr. Dylan King Work Phone: [facility] Start: 03-23-2021 Non-patient / Non-visit Dr. Dylan King Work Phone: [facility] Start: 03-22-2021 Non-patient / Non-visit Dr. Dylan King Work Phone: [facility] Start: 03-22-2021 End: 03-26-2021 Evaluation and management of inpatient Dr. Mariela King Work Phone: [facility]-Medical Surgical 3 Start: 03-24-2020 Patient encounter procedure SELF SELF Facility:[facility] Procedures Date Procedure Procedure Detail Performing Clinician [...] Start: 05-01-2014 End: 05-26-2014 *Hepatic Function Panel Garht Troy MD Start: 05-01-2014 End: 05-26-2014 Lipid [...] Date Care Activity Detail Author Start: 01-03-2023 [facility] Start: 07-19-2021 [facility] Work Phone: Start: 10-09-2017 End: 10-09-2017 Appointment Appointment [facility] Work Phone: Start: 01-09-2017 End: 01-09-2017 Appointment Appointment [facility] Work Phone: Start: 01-09-2017 End: 01-09-2017 *Hepatic Function Panel *Hepatic Function Panel [facility] Work Phone: Start: 01-09-2017 End: 01-09-2017 Follow Up Appt 9 months Follow Up Appt 9 months [facility] Work Phone: Start: 01-09-2017 End: 01-09-2017 Lipid panel [AGGREGATE] *Lipid Profile CC PCP [facility] Work Phone: Start: 01-09-2017 End: 01-09-2017 PFM PFM [facility] Work Phone: Start: 10-06-2016 End: 04-08-2016 *Hepatic Function Panel *Hepatic Function Panel [facility] Work Phone: Start: 10-06-2016 End: 04-08-2016 Lipid panel [AGGREGATE] *Lipid Profile CC PCP [facility] Work Phone: Start: 04-06-2016 End: 04-08-2016 *Hepatic Function Panel *Hepatic Function Panel [facility] Work Phone: Start: 04-06-2016 End: 04-06-2016 Follow Up Appt 9 months Follow Up Appt 9 months [facility] Work Phone: Start: 04-06-2016 End: 04-08-2016 Lipid panel [AGGREGATE] *Lipid Profile CC PCP [facility] Work Phone: Start: 04-06-2016 End: 04-06-2016 PFM PFM [facility] Work Phone: Start: 08-03-2015 End: 08-03-2015 Echocardiography Echocardiogram (complete) [facility] Work Phone: Start: 08-03-2015 End: [...] 6 months Follow Up Appt 6 months [facility] Work Phone: Start: 12-29-2014 End: 07-31-2015 Lipid panel [AGGREGATE] *Lipid Profile CC PCP [facility] Work Phone: Start: 12-29-2014 End: 12-29-2014 MMM MMM [facility] Work Phone: Start: 11-18-2014 End: 12-23-2014 *Hepatic Function Panel *Hepatic Function Panel [facility] Work Phone: Start: 11-18-2014 End: 12-23-2014 Lipid panel [AGGREGATE] *Lipid Profile CC PCP [facility] Work Phone: Start: 05-26-2014 End: 05-26-2014 Follow Up Appt 6 months Follow Up Appt 6 months [facility] Work Phone: Start: 05-26-2014 End: 05-26-2014 PFM PFM [facility] Work Phone: Start: 05-01-2014 End: 05-26-2014 *Hepatic Function Panel *Hepatic Function Panel [facility] Work Phone: Start: 05-01-2014 End: 05-26-2014 Lipid panel [AGGREGATE] *Lipid Profile CC PCP [facility] Work Phone: Start: 11-11-2013 End: 11-14-2013 *Hepatic Function Panel *Hepatic Function Panel [facility] Work Phone: Start: 11-11-2013 End: 11-11-2013 Follow Up Appt 6 months Follow Up Appt 6 months [facility] Work Phone: Start: 11-11-2013 End: 11-14-2013 Lipid panel [AGGREGATE] *Lipid Profile CC PCP [facility] Work Phone: Start: 11-11-2013 End: 11-11-2013 PFM PFM [facility] Work Phone: Start: 05-06-2013 End: 11-25-2013 *Hepatic Function Panel *Hepatic Function Panel [facility] Work Phone: Start: 05-06-2013 End: 05-06-2013 Follow Up Appt 6 months Follow Up Appt 6 months [facility] Work Phone: Start: 05-06-2013 End: 11-25-2013 Lipid panel [AGGREGATE] *Lipid Profile CC PCP [facility] Work Phone: Start: 05-06-2013 End: 05-06-2013 PFM PFM [facility] Work Phone: Start: 12-30-2012 End: 05-26-2014 *Hepatic Function Panel *Hepatic Function Panel [facility] Work Phone: Start: 12-30-2012 End: 05-26-2014 Lipid panel [AGGREGATE] *Lipid Profile [facility] Work Phone: Start: 10-04-2012 End: 10-04-2012 Follow Up Appt 6 months Follow Up Appt 6 months [facility] Work Phone: Start: 10-04-2012 End: 10-04-2012 PFM PFM [facility] Work Phone: Start: 08-15-2012 End: 08-15-2012 Electrocardiogram, complete EKG (In office) [facility] Work Phone: Start: 08-15-2012 End: 08-15-2012 Follow Up Appt 6 weeks Follow Up Appt 6 weeks [facility] Work Phone: Start: 08-15-2012 End: 08-15-2012 PFM PFM [facility] Work Phone: Start: 06-29-2012 End: 07-27-2012 *Hepatic Function Panel *Hepatic Function Panel [facility] Work Phone: Start: 06-29-2012 End: 07-27-2012 Lipid panel [AGGREGATE] *Lipid Profile [facility] Work Phone: Start: 01-23-2012 End: 01-23-2012 Echocardiography Echocardiogram (complete) [facility] Work Phone: Start: 01-23-2012 End: 01-23-2012 Electrocardiogram, complete EKG (In office) [facility] Work Phone: Start: 01-23-2012 End: 01-23-2012 Follow Up Appt 6 months Follow Up Appt 6 months [facility] Work Phone: Start: 01-23-2012 End: 01-23-2012 Nuclear stress test -exercise Nuclear stress test -exercise [facility] Work Phone: Start: 01-20-2012 End: 07-25-2012 *Hepatic Function Panel *Hepatic Function Panel [facility] Work Phone: Start: 01-20-2012 End: 07-25-2012 Lipid panel [AGGREGATE] *Lipid Profile [facility] Work Phone: Start: 07-25-2011 End: 07-25-2011 Electrocardiogram, complete EKG (In office) [facility] Work Phone: Start: 07-25-2011 End: 07-25-2011 Follow Up Appt 6 months Follow Up Appt 6 months [facility] Work Phone: Hepatic function panel [facility] Lipid 1996 panel - S bruce or Plasma [facility] Patient Education [facility] Work Phone: Patient referral [facility] Work Phone: US Carotid arteries [facility] Immunizations Immunization Date Immunization Notes Care Provider Fa jania 02-02-[address] Mariela King Work Phone: [facility] 06-18-2020 Covid (Moderna) Dr. Mariela Linder Work Phone: [facility] 05-21-2020 Timoid (Moderna) Dr. Mariela Linder Work Phone: [facility] 01-30-2020 influenza, injectabl e, quadrivalent, preservative free Dr. Mariela King Work Phone: [facility] 01-30-2020 influenza, seasonal, injectable Dr. Mariela King Work Phone: [facility] 01-10-2017 influenza, injectabl e, quadrivalent, preservative free Dr. Mariela King Work Phone: [facility] 01-10-2017 influenza, seasonal, injectable Dr. Mariela King Work Phone: [facility] Payers Date Payer Category Payer Self-pay [id number] 2020 Medicare [id number] 2015 Private Health Insurance 101 [id number] 1935 Unknown [id number] Medicare [id number] Unknown [id number] Unknown [id number] Unknown [id number] Unknown [id number] Social History Date Type Detail Facility Start: 07-19-2021 End: 01-03-2023 Tobacco smoking status NHIS Unknown if ever smoked [facility] Start: 03-18-2020 None [facility] Start: 03-18-2020 With Family [facility] Start: 03-23-2020 Non-smoker [facility] Start: 1935 Sex Assigned At Male [facility] Start: 01-03-2023 End: 01-03-2025 Tobacco smoking status NHIS Ex-smoker (finding) [facility] Sex Male [facility] Medical Equipment Procedure Code Equipment Code [...] Activity Abili ty With Assist of 1 [facility] Work Phone: 04-17-2021 Functional status Chair [facility] Work Phone: 03-26-2021 Functional status Ambulates;Bathroom Priv ilege [facility] Work Phone: Mental Status Date Assessment Result Facility 01-03-2023 Cognitive function Voice/Name [facility] Work Phone: 07-19-2021 Cognitive function Voice/Name [facility] Work Phone: 04-23-2021 Cognitive function Voice/Name [facility] Work Phone: 04-10-2021 Cognitive function Appropriate [facility] Work Phone: 03-26-2021 Cognitive function Voice/Name [facility] Work Phone: Clinical Notes 02-29-2020 to 01-03-2025 Note Date & Type Note Facility 01-03-2025 Evaluation note Diagnosis Onset Date Resolution Hyperlipidemia acute January 03, 2025 10:27am PVD (peripheral vascular disease) acute January 03 10:27am Atherosclerotic heart disease of [place] coronary artery without angina pectoris chronic January 03 10:27am Hypertension chronic December 10:27am [facility] Work Phone: 1(344) 176-942509-05-2023 Discharge summary Author Toy Crandall [facility] January 03, 2023 11:50am Note Date/Time January 03, 2023 9:52am [facility] Medical Records Department [address] [place] [address] Emergency Department Summary 01/03/23 MR#: [id number] Acct: [id number] Name: RANCHO MULLER Rep #:[id number] : [...] exertion. He had multivessel bypass surgery. His cathode builder is Dr. Troy. 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 WA interval is 172 ms. Cures duration 160 ms. QT duration is 414 ms. [place] is normal) Treatment and Re-Evaluation :: Patient was informed that both of his troponins were negative and the delta was 1. With an unchanged EKG atypical symptoms normal 2-hour troponin we will have him follow-up with the [facility]. He will need to be [...] your Primary Care Provider. Call [facility] ([phone]) or report to the closest Emergency Room. Call 911 if necessary. 01/03/23 1150 <Electronically signed by Toy Crandall MD> Cosigner Signature (if applicable): CC: Dr. Mariela King MD ~ Signed [facility] Work Phone: 1(402) 758-956707-02-2021 NoteHNO ID: [id number] Author: Alexa Schaefer APRN.[facility] Service: ? Author Type: Nurse Practitioner Type: [...] is currently taking aspirin: Yes Alexa Schaefer APRN.[facility]06-02-2021 NoteHNO ID: [id number] Author: Melani Lombardo APRN.SPECIALTY DEVELOPMENT CONSULTANT Service: ? Author Type: Nurse Savings Teller Type: Anesthesia Procedure Notes Filed: 09/30/2020 10:43 AM Note Text: ANESTHESIOLOGY PROCEDURE NOTE A-Line General Information Procedure Start Time/Medication Administration: 09/30/2020 9:30 AM Procedure End Time: 09/30/2020 9:36 AM Patient location during procedure: OR Timeout Performed Pre-procedure: timeout performed Indication: continuous blood pressure monitoring and blood sampling needed Staffing Anesthesiologist: Rusty Gomez MD SPECIALTY DEVELOPMENT CONSULTANT: Melani Lombardo APRN.SPECIALTY DEVELOPMENT CONSULTANT Performed by: KRISTOPHER Preparation Sterility Preparation: hand [...] procedure well with no complications SIGNATURE: Melani Lobmardo APRN.CRNA PATIENT NAME: Rancho Muller DATE: September 30, 2020 TIME: 10:42 AM [facility]: [id number] NoteHNO ID: [id number] Author: Melani Lombardo APRN.CRNA Service: ? Author Type: Nurse Savings Teller Type: Anesthesia Procedure Notes Filed: 09/30/2020 10:04 AM Note Text: ANESTHESIOLOGY PROCEDURE NOTE Airway General Information Procedure Start Time/Medication Administration: 09/30/2020 9:29 AM Patient location during procedure: OR Patient identity confirmed: arm band, care hourly team members and patient Staffing Anesthesiologist: Rusty Gomez MD SPECIALTY DEVELOPMENT CONSULTANT: Melani Lombardo APRN.SPECIALTY DEVELOPMENT CONSULTANT Performed by: KRISTOPHER Indications and Patient Condition [...] September 30, 2020 TIME: 10:03 AM CSN: [id number]-2021 NoteHNO ID: [id number] Author: Johnson Fitzgerald APRN.CNP Service: Anesthesiology Author Type: Nurse Practitioner Type: Progress Notes Filed: 09/29/2020 1:59 PM Note Text: Spoke to Automn at 's office regarding the cardiac optimization per surgeons request per PST visit. She states that she will attempt to retrieve and scan into Epic or fax over.[facility] 08-21-2020 NoteHNO ID: [id number] Author: Alexa (Temitope Segal) REHAN Schaefer Service: [...] is currently taking aspirin: Yes Alexa Schaefer APRN.[facility]03-25-2021 NoteHNO ID: [id number] Author: Desmond Peters DO Service: General Surgery [...] questions or concerns Mon-Fri 6a-5p please page [phone]. After 5pm and on Weekends and Holidays, please page [phone] if in ICU or [phone] if on [...] 07/23/20 0659 07/23/20699 - 07/24/20 0659 Shift 3508-9671 0226-5765 5002-6631 24 Hour Total 0382-4521 3696-3776 7255-7156 24 Hour Total INTAKE PO 240 240 PO 240 240 IV 1550 1550 Volume (mL) (NaCl 0.9% iv infusion) 750 750 Volume (mL) (lactated ringers infusion) 750 750 Volume (mL) (clindamycin iv piggyback 900 mg in D5W 50 mL (CLEOCIN)) 50 50 Shift Total 1040 509 8053 OUTPUT Urine 500 430 884 2299 Void (ml) 150 350 500 OR Urine Output 500 500 Blood 50 50 Estimated Blood loss 50 50 Shift Total 550 864 493 9271 Weight (kg) MEDICATIONS Current Facility-Administered Medications Medication [...] if in ICU or 2174 if on RNF.[facility]03-24-2021 NoteHNO ID: [id number] Author: Celia Valero (Aprn Crna) Service: Anesthesiology Author Type: Nurse Savings Teller Type: Anesthesia Procedure Notes Filed: 07/22/2020 10:30 [...] July 22, 2020 TIME: 10:29 AM CSN: [id number] [facility] Care03-24-2021 NoteHNO ID: [id number] Author: Celia Valero (Aprn Crna) Service: Anesthesiology Author Type: Nurse Savings Teller Type: Anesthesia Procedure Notes Filed: 07/22/2020 10:29 [...] July 22, 2020 TIME: 10:28 AM CSN: [id number] [facility] Care03-24-2021 NoteHNO ID: [id number] Author: Celia Valero (Aprn Crna) Service: Anesthesiology Author Type: Nurse Savings Teller Type: Anesthesia Procedure Notes Filed: 07/22/2020 10:27 AM Note Text: ANESTHESIOLOGY PROCEDURE NOTE Airway General Information Procedure Start Time/Medication Administration: 07/22/2020 8:54 AM Patient location during procedure: OR Patient identity confirmed: arm band and patient Staffing Anesthesiologist: Fermin Foy SPECIALTY DEVELOPMENT CONSULTANT: Celia Valero (Aprn Crna) Performed by: SPECIALTY DEVELOPMENT CONSULTANT Indications and Patient Condition Preoxygenated: yes Patient [...] July 22, 2020 TIME: 10:26 AM CSN: [id number] [facility] Health Care12-03-2020 NoteHNO ID: [id number] Author: Liliya Mares Service: ? Author Type: [...] disorder - COPD (chronic obstructive pulmonary disease) ([facility]) - Coronary atherosclerosis of unspecified type of vessel, [place] or graft - Depression - Displacement of [...] visit. I spent more than 10 minutes ioad-zy-pdzt with the patient and over half the time was devoted to counseling and/or coordination of care. Liliya Mares, [facility]11-03-2020 NoteHNO ID: [id number] Author: Cyn Tadeo Service: General Surgery Author [...] if in ICU or 2174 if on RNF.[facility]11-02-2020 NoteHNO ID: [id number] Author: Joce Zuniga MD Service: Hospital Medicine Author Type: Physician Type: Progress Notes Filed: 03/02/2020 4:46 PM Note Text: DEPARTMENT OF HOSPITAL MEDICINE PROGRESS NOTE SERVICE DATE: 03/02/2020 SERVICE TIME: 4:42 PM Hospital Medicine/Primary Attending: Dr.Lodi Zuniga NIGHT AND WEEKEND COVERAGE: After 7pm please page [phone] SUBJECTIVE: no acute events Denies CP/SOB. Denies [...] TIME: 4:42 PM PAGER/CONTACT #: carina el [facility] 03-02-2020 NoteHNO ID: [id number] Author: Gudelia Solis Service: General Surgery Author [...] questions or concerns Mon-Fri 6a-5p please page [phone]. After 5pm and on Weekends and Holidays, please page [phone] if in ICU or [phone] if on RNF. Subjective SUBJECTIVE: Patient resting [...] March 02, 2020 TIME: 3:26 PM Pager: [phone] Vascular and Thoracic Service Pager: For questions or concerns Mon-Mon 6a-5p please page [phone]. After 5pm and on Weekends and Holidays, please page [phone] if in ICU or [phone] if on RNF.[facility]11-01-2020 NoteHNO ID: [id number] Author: Joce Zuniga MD Service: Hospital Medicine Author Type: Physician Type: Progress Notes Filed: 03/01/2020 3:16 PM Note Text: DEPARTMENT OF HOSPITAL MEDICINE PROGRESS NOTE SERVICE DATE: 03/01/2020 SERVICE TIME: 3:12 PM Hospital Medicine/Primary Attending: Dr.Lodi Zuniga NIGHT AND WEEKEND COVERAGE: After 7pm please page [phone] SUBJECTIVE: Patient seen and examined,resting in the [...] TIME: 3:12 PM PAGER/CONTACT #: carina el [facility] 03-01-2020 NoteHNO ID: [id number] Author: Antonette Whipple Service: Vascular Surgery Author [...] 0659 03/01/20 07 - 03/02/20 0659 Shift 7050-7251 8907-2274 2027-5953 24 Hour Total 8230-3567 8497-8663 8383-8071 24 Hour Total INTAKE Shift Total OUTPUT [...] if in ICU or 2174 if on RNF.[facility]10-31-2020 NoteHNO ID: [id number] Author: Joce Zuniga MD Service: Hospital Medicine Author Type: Physician Type: Progress Notes Filed: 02/29/2020 3:42 PM Note Text: DEPARTMENT OF HOSPITAL MEDICINE PROGRESS NOTE SERVICE DATE: 02/29/2020 SERVICE TIME: 3:35 PM Hospital Medicine/Primary Attending: Dr.Lodi Zuniga NIGHT AND WEEKEND COVERAGE: After 7pm please page [phone] SUBJECTIVE: patient seen and examined Resting in [...] TIME: 3:35 PM PAGER/CONTACT #: carina team [facility] 02-29-2020 NoteHNO ID: [id number] Author: Eber Rios DO Service: Vascular Surgery [...] questions or concerns Mon-Fri 6a-5p please page [phone]. After 5pm and on Weekends and Holidays, please page [phone] if in ICU or [phone] if on RNF. Subjective SUBJECTIVE: Doing fair [...] PATIENT NAME: Rancho Duran (more content not included)...[facility]10-31-2020 NoteHNO ID: [id number] Author: Interface Note Service: ? Author Type: ? Type: Progress Notes Filed: 02/29/2020 3:25 AM Note Text: Epic Scheduled Downtime: 02/29/2020 12:20:00 AM to 02/29/2020 3:09:00 AMSouthern [facility] CareEvaluation note* Diagnosis Onset Date Resolution Status Anemia [...] stenosis acute Atherosclerotic heart diseas e of [place] coronary artery without angina pectoris chronic Hyperlipidemia [facility] Work Phone: Evaluation note* Diagnosis Onset Date Resolution Status Status post-operative repair of closed fracture of left hip acute Aortic root dilatation acute Benign essential HTN acute Bilateral carotid artery stenosis acute Atherosclerotic heart diseas e of [place] coronary artery without angina pectoris chronic Hyperlipidemia chronic Anemia acute Aortic root dilatation acute Benign essential HTN acute Bilateral carotid artery stenosis acute Chest pain acute Atherosclerotic heart diseas e of [place] coronary artery without angina pectoris chronic Hyperlipidemia [facility] Work Phone: Evaluation note* Diagnosis Onset Date Resolution Status Aortic root dilatation acute Benign essential HTN acute Bilateral carotid artery stenosis acute Atherosclerotic heart diseas [place] coronary artery without angina pectoris chronic Hyperlipidemia chronic Anemia acute Aortic root dilatation acute Benign essential HTN acute Bilateral carotid artery stenosis acute Chest pain acute Atherosclerotic heart diseas e of [place] coronary artery without angina pectoris chronic Hyperlipidemia [facility] Work Phone: Evaluation note* Diagnosis Onset Date Resolution Status Anemia acute Aortic root dilatation acute Benign essential HTN acute Bilateral carotid artery stenosis acute Chest pain acute Atherosclerotic heart diseas e of [place] coronary artery without angina pectoris chronic Hyperlipidemia [facility] Work Phone: Evaluation note* Diagnosis Onset Date Resolution Status Aortic root dilatation acute Benign essential HTN acute Bilateral carotid artery stenosis acute Atherosclerotic heart diseas e of [place] coronary artery without angina pectoris chronic Hyperlipidemia [facility] Work Phone: Evaluation noteNo assessment information available [facility] Work Phone: Evaluation note* Diagnosis Onset Date Resolution Status Admit Date Hyperlipidemia acute January 03, 2025 10:27am [facility] Work Phone: Reason for referral (narrative)No reason for referral [facility] Summary Purpose Family History No Family History Records Found Relationship Condition Age at Onset Recorded Date/T joseline father Myocardial infarction 68 brother Coronary artery disease Unknown Myocardial infarction Unknown History of coronary artery bypass surgery Unknown brother Congestive heart failure Unknown Advance Directives No Advanced Directives Records Found Advance Directive Response Recorded Date/ Time Name of Medical Power of Business Operations Coordinator Lea reyna () March 22, 2021 8:02pm Name of Medical Power of Business Operations Coordinator Lea reyna, March 29, 2021 11:50am Living Will No July 19, 2021 6:39pm Power of Business Operations Coordinator No July 19 6:39pm Advance Directive Response Recorded Date/ Time Living Will No July 19, 2021 6:39pm Power of Business Operations Coordinator No July 19 6:39pm Advance Directive Response Recorded Date/ Time Living Will No January 03 8:28am Power of Business Operations Coordinator No January 03, 2023 8:28am Chief Complaint [...] carotid artery stenosis Atherosclerotic heart disease of [place] coronary artery without angina pectoris Hyperlipidemia Chief Complaint LEFT HIP EORDER 6 m fu LT HIP FX/ RX HERE CHEST PAIN 3-4 MO F/U Reason for Visit Status post-operativ e repair of closed fracture of left hip Aortic root dilatation Benign essential HTN Bilateral carotid artery stenosis Atherosclerotic heart disease of [place] coronary artery without angina pectoris Hyperlipidemia Anemia Aortic root dilatation Benign essential HTN Bilateral carotid artery stenosis Chest pain Atherosclerotic heart disease of [place] coronary artery without angina pectoris Hyperlipidemia Chief Complaint EORDER 6 m fu LT HIP FX/ RX HERE CHEST PAIN 3-4 MO F/U CP CAD CP CAD Reason for Visit Aortic root dilatati on Benign essential HTN Bilateral carotid artery stenosis Atherosclerotic heart disease of [place] coronary artery without angina pectoris Hyperlipidemia Anemia Aortic root dilatation Benign essential HTN Bilateral carotid artery stenosis Chest pain Atherosclerotic heart disease of [place] coronary artery without angina pectoris Hyperlipidemia Chief Complaint LT HIP FX/ RX HERE CHEST PAIN 3-4 MO F/U CP CAD CP CAD Reason for Visit Anemia Aortic root dilatation Benign essential HTN Bilateral carotid artery stenosis Chest pain Atherosclerotic heart disease of [place] coronary artery without angina pectoris Hyperlipidemia Chief Complaint 6 M FU INT LABS Reason for Visit Aortic root dilatati on Benign essential HTN Bilateral carotid artery stenosis Atherosclerotic heart disease of [place] coronary artery without angina pectoris Hyperlipidemia Chief Complaint 1 Y FU PREV PFM PT cp Reason for Visit Aortic root dilatati on Benign essential HTN Bilateral carotid artery stenosis Atherosclerotic heart disease of [place] coronary artery without angina pectoris Hyperlipidemia Chief Complaint 1 Y FU PREV PFM PT cp LABS AND XRAY- COPD Reason for Visit Aortic root dilatati on Benign essential HTN Bilateral carotid artery stenosis Atherosclerotic heart disease of [place] coronary artery without angina pectoris Hyperlipidemia Chief [...] 2024 10:27am Atherosclerotic heart diseas e of [place] coronary artery without angina pectoris January 03, 2025 10:27am Hypertension January 03, 2025 10:27am Additional Source Comments (unrecognized sect ion and content) No Status Records FoundNo Status Records FoundNo Status Records FoundNo Status Records FoundNo Status Records Found INFORMATION SOURCE (unrecogn ized section and content) DATE CREATED AUTHOR 03/24/2020 [facility] DATE CREATED AUTHOR AUTHOR'S ORGANIZ ATION 10/31/2020 [facility] DATE CREATED AUTHOR AUTHOR'S ORGANIZ ATION 02/05/2021 [facility] DATE CREATED AUTHOR AUTHOR'S ORGANIZ ATION 06/05/2021 [facility] DATE CREATED AUTHOR AUTHOR'S ORGANIZ ATION 02/06/2025 [facility] Goals (unrecognized section and content) Goals may [...] BE BASED ON THE PRIMARY CLINICAL RECORDS. [facility]. provides no warranty or guarantee of the accuracy or completeness of information in this document.
[2025-03-30] MEDS: Dext 5%-0.45% NS 1,000 ML 125 ML IV (02:50)
[2025-03-30 02:55] VITALS: BP 136/65; PULSE 80; RESP 16; TEMP 36.7; O2SAT 92
[2025-03-30 03:15] LABS: Mucous, Urine 0 SEEN /hpf (<or=2+)
[2025-03-30 03:17] LABS: Color, Urine Yellow (Yellow); Glucose, Dipstick Normal (Normal); Ketone-Dipstick 5 mg/dl (Negative); Leukocyte Esterase-Dipstick Negative /ul (Negative); Nitrite-Dipstick Negative (Negative); Occult Blood-Urine 25 /ul (Negative); Protein-Dipstick 100 mg/dl (Negative); Specific Gravity, Urine 1.010 (1.002-1.030); Urine Bilirubin Dipstick Negative (Negative)
[2025-03-30 03:25] LABS: Red Blood Cells-Urine 0-5 SEEN /hpf (0-5); Squamous Epithelial Cells - UA 0-5 SEEN /hpf (0-5)
[2025-03-30 03:54] LABS: Reflex Lactate? Y
[2025-03-30 05:19] LABS: Hematocrit 35.5 % (40-54); Hemoglobin 13.0 g/dL (13.0-16.5); Immature Granulocytes Count 0.080 X10^3/uL (0.0-0.0); Mean Corp Hgb Conc 36.6 g/dL (32-36); Mean Corpuscular Volume 93.4 fL (80-94); Mean Platelet Vol. 8.9 fl (6.2-12.0); NRBC Flagged by Analyzer 0 % (0-5); POSITIVE DIFFERENTIAL YES; Platelet Count 243 K/mm3 (150-450); RBC Distribution Width CV 13.8 % (11.6-14.6); RBC Distribution Width SD 46.5 fl (35.1-43.9); Red Blood Count 3.80 M/mm3 (4.6-6.2); White Blood Count 20.6 K/mm3 (4.4-11.0)
[2025-03-30 05:25] LABS: Differential Indicated SCAN CRITERIA MET
[2025-03-30 05:46] LABS: Differential Comment SCANNED
--- NOTE | 2025-03-30 07:22 | PN.HOSP_ITS ---
Reason for Visit Chief Complaint: Vomiting red-brown material Subjective Subjective Patient is an 89-year-old gentleman who presented to the emergency department with hematemesis following 3-day history of nausea and vomiting. Objective Data Objective Data Vital Signs: Vital Signs Temp Pulse Resp BP Pulse Ox O2 Del Method 98.1 F 80 16 136/65 H 92 Room Air 03/30/25 02:55 03/30/25 02:55 03/30/25 02:55 03/30/25 02:55 03/30/25 02:55 03/30/25 02:55 Oxygen Delivery Method Room Air Weight: 123.377 kg Body Mass Index (BMI) 36.8 Intake & Output: Intake and Output for Last 24 Hours 03/28/25 03/29/25 03/30/25 23:59 23:59 23:59 Intake Total 1035 / 1035 Output Total 100 / 100 Balance 935 / 935 Lab / Micro Data 03/30/25 05:06 03/29/25 23:44 Labs: Laboratory Results - last 24 hr 03/29/25 23:44: WBC 20.7 H, RBC 4.77, Hgb 15.8, Hct 45.2, MCV 94.8 H, MCH 33.1 H , MCHC 35.0, RDW Std Deviation 47.6 H, RDW Coeff of Josh 13.8, Plt Count 344, MPV 9.1, Immature Gran % (Auto) 0.500, Neut % (Auto) 78.3 H, Lymph % (Auto) 12.7 L, Wilkes % (Auto) 8.3, Eos % (Auto) 0.0, Baso % (Auto) 0.2, Absolute Neuts (auto) 16.2 H, Absolute Lymphs (auto) 2.63, Nucleated RBC % 0, Differential Comment SCANNED, Sodium 133, Potassium 4.6, Chloride 95 L, Carbon Dioxide 23.7, Anion Gap 15, BUN 21 H, Creatinine 1.34 H, Estim Creat Clear Calc 47.00 L, Est GFR (MDRD) Non-Af 51 L, BUN/Creatinine Ratio 15.9, Glucose 175 H, Calcium 10.2, Total Bilirubin 1.11, AST 37, ALT 10, Alkaline Phosphatase 112, Total Protein 7.1, Albumin 3.9, Globulin 3.3, Albumin/Globulin Ratio 1.2, Lipase 29 03/29/25 23:49: Lactic Acid 3.2 H*, Blood Type O POSITIVE, Antibody Screen NEGATIVE 03/30/25 03:00: Urine Color Yellow, Urine Clarity Clear, Urine pH 5.0, Ur Specific [place] 1.010, Urine Protein 100 H, Urine Glucose (UA) Normal, Urine Ketones 5 H, Urine Occult Blood 25 H, Urine Nitrite Negative, Urine Bilirubin Negative, Urine Urobilinogen Normal, Ur Leukocyte Esterase Negative, Urine RBC 0-5 SEEN, Urine WBC 0-5 SEEN, Ur Squamous Epith Cells 0-5 SEEN, Urine Bacteria 0 SEEN, Urine Mucus 0 SEEN 03/30/25 05:06: WBC 20.6 H, RBC 3.80 L, Hgb 13.0, Hct 35.5 L, MCV 93.4, MCH 34.2 H, MCHC 36.6 H, RDW Std Deviation 46.5 H, RDW Coeff of Josh 13.8, Plt Count 243, MPV 8.9, Immature Gran % (Auto) 0.400, Neut % (Auto) 81.1 H, Lymph % (Auto) 8.6 L, Wilkes % (Auto) 9.8, Eos % (Auto) 0.0, Baso % (Auto) 0.1, Absolute Neuts (auto) 16.7 H, Absolute Lymphs (auto) 1.78, Nucleated RBC % 0, Differential Comment SCANNED, Lactic Acid 1.0 Micro: Microbiology 03/29/25 23:49 Stool Stool Occult Blood (PRINCE) - Final Radiography Diagnostic Testing: Radiology Impression Abdomen/Pelvis CT 03/30/25 00:12 IMPRESSION: 1. Regional fat stranding of the pancreatic head and duodenum concerning for acute pancreatitis with possible reactive duodenitis. No pancreatic necrosis or pseudocyst formation at this moment. 2. Cholelithiasis with no CT evidence of acute cholecystitis. 3. Right kidney parapelvic cyst measures 2.4 x 4.1 x 2.1 cm. 4. 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 Reading Location: [facility] Physical Exam Narrative GENERAL: cooperative HEENT: Atraumatic; normocephalic EYES; Anicteric, Normal Conjunctiva NECK; supple, normal thyroid, RESPIRATORY: Diminished to auscultation CARDIOVASCULAR: Regular S1 S2, GI: soft, normoactive bowel sounds, : No Renal angle tenderness; EXTREMITIES: No edema, no clubbing, MUSCULOSKELETAL: no muscle wasting NEURO: Awake; no lateralizing signs. SKIN: No Rash PSYCH; Flat affect Assessment & Plan Assessment/Plan (1) Coffee ground emesis: (2) Acute upper GI bleeding: (3) Lactic acidosis: (4) Duodenitis: (5) Coronary artery disease: QUALIFIERS: Associated angina: without angina Coronary Disease- Associated Artery/Lesion type: [place] artery [place] vs. transplanted heart: n ative heart Qualified Code(s): I25.10 - Atherosclerotic heart disease of [place] coronary artery without angina pectoris (6) Hypertension: QUALIFIERS: Hypertension type: primary hypertension Qualified Code(s): I10 - Essential (primary) hypertension PLAN: Plan Patient is an 89-year-old gentleman who presented to the emergency department with hematemesis following 3-day history of nausea and vomiting. 1. Upper GI bleed ? Patient presented with hematemesis following 3-day history of nausea and vomiting. Suspicion of possible [place]-Oliveros entertained. Admitted to monitored bed started on Protonix patient is on aspirin held consultation placed to GI. Patient H&H on admission within normal limits will continue with monitoring 2. Acute pancreatitis ? Patient presented with abdominal pain as well CT of the abdomen and pelvis obtained on admission demonstrated . Regional fat stranding of the pancreatic head and duodenum concerning for acute pancreatitis with possible reactive duodenitis. No pancreatic necrosis or pseudocyst formation at this moment. managed conservatively ? 3. Acute duodenitis ? Thought to be reactive as a result of pancreatitis patient started on PPI 4. Cholelithiasis with no CT evidence of acute cholecystitis. 5. Right kidney parapelvic cyst measures 2.4 x 4.1 x 2.1 cm. 6. 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 7. Lactic acidosis Secondary to hypoperfusion patient did receive IV fluid resuscitation 8. Coronary artery disease ? With previous CABG patient is on aspirin held given his presentation 9. Essential hypertension ? Patient antihypertensives held since patient was n.p.o. 10. Dyslipidemia ?Patient is on statin therapy, continued at home dose 11. COPD ? Currently not in exacerbation aerosol treatments as needed 12. Depression with anxiety ? Patient is on escitalopram 13. DVT prophylaxis ? Bilateral SCDs only given patient presented Time spent in the patient's overall evaluation,decision-making process, review of diagnostic data, adjustment of management, discussion with other providers, nursing nursing and ancillary staff involved in patient's care documentation, 50 Minutes Charges/Coding Visit Charges Inpatient E&M: 39061 Subs Hosp L3
[2025-03-30 09:00] VITALS: BP 130/60; PULSE 75; RESP 18; TEMP 36.4; O2SAT 93
[2025-03-30 09:52] LABS: Lipase 23 U/L (13-75)
[2025-03-30] MEDS: Pantoprazole Sodium 40 MG in 0.9% Normal Saline (100mL MB+) 100 ML 300 MG IV ×2 (10:43→21:15)
[2025-03-30 11:03] LABS: Hematocrit 36.4 % (40-54); Hemoglobin 12.7 g/dL (13.0-16.5)
[2025-03-30 17:08] LABS: Hematocrit 36.5 % (40-54); Hemoglobin 12.9 g/dL (13.0-16.5)
[2025-03-30 17:09] VITALS: BP 118/58; PULSE 86; RESP 18; TEMP 36.6; O2SAT 94
[2025-03-30 21:15] VITALS: BP 126/59; PULSE 81; RESP 18; TEMP 36.8; O2SAT 93
[2025-03-30] MEDS: 0.9% Saline Lock 10 ML Syringe IV (21:16)
[2025-03-30 23:08] LABS: Hematocrit 35.3 % (40-54); Hemoglobin 12.1 g/dL (13.0-16.5)
[2025-03-31] VITALS (7 sets, daily range): BP systolic 128–162; BP diastolic 64–72; PULSE 80–100; RESP 18–24; TEMP 36.3–36.7; O2SAT 92–95; BMI 36.2
[2025-03-31 03:56] LABS: Hematocrit 35.6 % (40-54); Hemoglobin 12.6 g/dL (13.0-16.5); Immature Granulocytes Count 0.060 X10^3/uL (0.0-0.0); Mean Corp Hgb Conc 35.4 g/dL (32-36); Mean Corpuscular Volume 95.4 fL (80-94); Mean Platelet Vol. 9.0 fl (6.2-12.0); NRBC Flagged by Analyzer 0 % (0-5); Platelet Count 219 K/mm3 (150-450); RBC Distribution Width CV 14.3 % (11.6-14.6); RBC Distribution Width SD 49.8 fl (35.1-43.9); Red Blood Count 3.73 M/mm3 (4.6-6.2); White Blood Count 12.1 K/mm3 (4.4-11.0)
[2025-03-31 04:34] LABS: Anion Gap 10 (5-15); BUN 24 mg/dL (4-19); BUN/Creat Ratio 16.3 RATIO (10-20); Calcium,Total 9.7 mg/dL (7.6-11.0); Carbon Dioxide 26.2 mmol/L (21.0-32.0); Chloride 100 mmol/L (98-108); Estimated Creatinine Clearance 48.03 ml/min (50-250); Glucose 94 mg/dL (70-99); Lipase 34 U/L (13-75); Magnesium 2.1 mg/dL (1.5-2.2); Potassium 4.3 mmol/L (3.3-5.1)
[2025-03-31 04:49] LABS: Cholesterol 133 mg/dL (<=200); Low Density Lipoprotein Calc. 67 mg/dL; Triglycerides 166 mg/dL; Very Low Density Lipoprotein 33 mg/dL (5-40); cholesterol:hdl ratio screen 3.49
--- NOTE | 2025-03-31 07:28 | PN.HOSP_ITS ---
Reason for Visit Chief Complaint: Vomiting red-brown material Subjective Subjective Patient seen agitated this a.m. Patient insistent on being in the hospital since ?03/28/2025 patient was however admitted on 03/30/2025. Patient kept n.p.o. in anticipation of endoscopic evaluation by GI Objective Data Objective Data Vital Signs: Vital Signs Temp Pulse Resp BP Pulse Ox O2 Del Method 97.3 F L 81 18 162/66 H 93 Room Air 03/31/25 04:56 03/31/25 04:56 03/31/25 04:56 03/31/25 04:56 03/31/25 04:56 03/31/25 04:56 Oxygen Delivery Method Room Air Weight: 123.377 kg Body Mass Index (BMI) 36.8 Intake & Output: Intake and Output for Last 24 Hours 03/29/25 03/30/25 03/31/25 23:59 23:59 23:59 Intake Total 2235 / 2235 Output Total 100 / 100 Balance 2135 / 2135 Lab / Micro Data 03/31/25 03:17 03/31/25 03:17 Labs: Laboratory Results - last 24 hr 03/30/25 05:06: Lipase 23 03/30/25 10:58: Hgb 12.7 L, Hct 36.4 L 03/30/25 17:00: Hgb 12.9 L, Hct 36.5 L 03/30/25 23:00: Hgb 12.1 L, Hct 35.3 L 03/31/25 03:17: WBC 12.1 H, RBC 3.73 L, Hgb 12.6 L, Hct 35.6 L, MCV 95.4 H, MCH 33.8 H, MCHC 35.4, RDW Std Deviation 49.8 H, RDW Coeff of Josh 14.3, Plt Count 219, MPV 9.0, Immature Gran % (Auto) 0.500, Neut % (Auto) 73.8 H, Lymph % (Auto) 12.8 L, [place] % (Auto) 12.0 H, Eos % (Auto) 0.6, Baso % (Auto) 0.3, Absolute Neuts (auto) 9.0 H, Absolute Lymphs (auto) 1.55, Nucleated RBC % 0, Sodium 136, Potassium 4.3, Chloride 100, Carbon Dioxide 26.2, Anion Gap 10, BUN 24 H, C reatinine 1.47 H, Estim Creat Clear Calc 48.03 L, Est GFR (MDRD) Non-Af 46 L, BUN/Creatinine Ratio 16.3, Glucose 94, Calcium 9.7, Phosphorus 2.8, Magnesium 2.1, Triglycerides 166, Cholesterol 133, LDL Cholesterol, Calc 67, VLDL Cholesterol 33, HDL Cholesterol 38 L, Cholesterol/HDL Ratio 3.49, Lipase 34 Micro: Microbiology 03/29/25 23:49 Stool Stool Occult Blood (PRINCE) - Final Physical Exam Narrative GENERAL: Agitated HEENT: Atraumatic; normocephalic EYES; Anicteric, Normal Conjunctiva NECK; supple, normal thyroid, RESPIRATORY: Diminished to auscultation CARDIOVASCULAR: Regular S1 S2, GI: soft, normoactive bowel sounds, : No Renal angle tenderness; EXTREMITIES: No edema, no clubbing, MUSCULOSKELETAL: no muscle wasting NEURO: Awake; no lateralizing signs. SKIN: No Rash PSYCH; Flat affect Assessment & Plan Assessment/Plan (1) Coffee ground emesis: (2) Acute upper GI bleeding: (3) Lactic acidosis: (4) Duodenitis: (5) Coronary artery disease: QUALIFIERS: Associated angina: without angina Coronary Disease- Associated Artery/Lesion type: [place] artery [place] vs. transplanted heart: n ative heart Qualified Code(s): I25.10 - Atherosclerotic heart disease of [place] coronary artery without angina pectoris (6) Hypertension: QUALIFIERS: Hypertension type: primary hypertension Qualified Code(s): I10 - Essential (primary) hypertension PLAN: Plan Patient is an 89-year-old gentleman who presented to the emergency department with hematemesis following 3-day history of nausea and vomiting. 1. Upper GI bleed ? Patient presented with hematemesis following 3-day history of nausea and vomiting. Suspicion of possible [place]-Oliveros entertained. Admitted to monitored bed started on Protonix patient is on aspirin held consultation placed to GI. Patient H&H on admission within normal limits will continue with monitoring ? 03/31/2025; H&H remained stable. Patient kept n.p.o. Suspicion of endoscopic evaluation by GI 2. Acute pancreatitis ? Patient presented with abdominal pain as well CT of the abdomen and pelvis obtained on admission demonstrated . Regional fat stranding of the pancreatic head and duodenum concerning for acute pancreatitis with possible reactive duodenitis. No pancreatic necrosis or pseudocyst formation at this moment. managed conservatively ? 03/31/2025; patient pain has resolved ? 3. Acute duodenitis ? Thought to be reactive as a result of pancreatitis patient started on PPI 4. Cholelithiasis with no CT evidence of acute cholecystitis. 5. Right kidney parapelvic cyst measures 2.4 x 4.1 x 2.1 cm. 6. 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 7. Lactic acidosis Secondary to hypoperfusion patient did receive IV fluid resuscitation 8. Coronary artery disease ? With previous CABG patient is on aspirin held given his presentation 9. Essential hypertension ? Patient antihypertensives held since patient was n.p.o. 10. Dyslipidemia ?Patient is on statin therapy, continued at home dose 11. COPD ? Currently not in exacerbation aerosol treatments as needed 12. Depression with anxiety ? Patient is on escitalopram 13. DVT prophylaxis ? Bilateral SCDs only given patient presented 14. Suspected dementia with agitation ? Plan is to continue to monitor Time spent in the patient's overall evaluation,decision-making process, review of diagnostic data, adjustment of management, discussion with other providers, nursing nursing and ancillary staff involved in patient's care documentation, 40 Minutes Charges/Coding Visit Charges Inpatient E&M: 45979 Subs Hosp L2
[2025-03-31] MEDS: 0.9% Saline Lock 10 ML Syringe IV (08:08)
[2025-03-31] MEDS: Pantoprazole Sodium 40 MG in 0.9% Normal Saline (100mL MB+) 100 ML 300 MG IV ×2 (09:50→21:01)
--- NOTE | 2025-03-31 14:16 | CASEMGMT ---
Addendum entered by Ayah James 03/31/25 14:29: Noted some confusion in Patient's chart, JESSENIA MORALES called Pt to confirm information patient provided. Pt confirmed details, she would like the pharmacy to be changed to [facility]. JESSENIA MORALES changed Pt preference in chart. Original Note: JESSENIA MORALES Assessment: Face to Face with pt for initial transition planning/care coordination assessment. JESSENIA MORALES introduced self and role at [facility], pt voices understanding and consents to assessment. Pt is A&O x4 and answers all questions appropriately at this time. Care providers, pharmacy, and demographics verified/updated. Strata: 2 Admitting Dx: Upper GI bleed PCP: Fernando Specialists: Denies Preferred Pharmacy: [facility] Insurance: [facility] Prescription Benefit: yes LNOK: , [facility] Living Arrangements: Pt lives with in a 1 story home with 2 steps to enter. Pt states the basement is finished but he never goes down there. ADLs: Pt reports he is I with ADLs and cooks. States they have a warehouse material handler that comes to clean their home. Transportation: Pt drives self and denies concerns with transportation. DME: Cane, walker, shower bench, grab bars. HHC/SNF: Denied Hx of SNF, states he did have HHC in the past but does not recall what agency. Pt states no concerns with going home at time of dc. Pt states no further concerns/needs. CM to follow. Advised pt to ask CM if any further question/concerns/needs arise, voices understanding. Pt Goal: Home Plan: Home, no therapy ordered and no 6 clicks entered yet. GI Consulted. Follow for safe DC. Trini RUELAS CM
--- NOTE | 2025-03-31 17:50 | EX.PCM.CON.G ---
HPI Consult Data Date of Consult: 03/31/25 HPI Narrative Reason for Consultation: Upper GI bleed and pancreatitis HPI Narrative: RANCHO MULLER, is a 89-year-old male with a history of CAD (post-quadruple bypass in 2000, on daily aspirin) and mild dementia, presenting with new onset excessive vomiting and hematemesis for one day, accompanied by severe epigastric pain.. His Chief Complaint:?Excessive vomiting for 1 day; red to brown dark material in vomitus suspicious for bleeding. He admits to vomiting began earlier yesterday, occurring approximately four times initially, described as forceful retching. The initial vomitus was nonconcerning in appearance, but subsequent episodes contained dark red to brown material, prompting the ED visit due to concern for bleeding. The patient was unable to eat all day. He reported severe, dull, nonradiating epigastric pain. Relevant Prior History:?Patient reports a long-standing history (many years) of mild, random epigastric pain typically relieved by food, which he never sought attention for. He has not used acid suppressants. He has had 10 yearly normal colonoscopies and no prior abdominal surgeries. Labs: WBC: 20,000 (with left shift) Hemoglobin: 15.8 Lactic Acid: 3.2 Lipase: Normal EKG:?Unchanged right bundle branch block with T waves discordant to the QRS complexes, no evidence of acute ischemia. Imaging: CT Abdomen with IV Contrast: Showed diffuse fat stranding around the pancreatic head (suggestive of pancreatitis), diffuse thickening of the duodenal sweep (suggestive of duodenitis), and a calcified gallstone in the gallbladder neck with no biliary dilatation or signs of cholecystitis. No bowel thickening or signs of inflammation. [facility] Medical History History of stress test Aortic root dilatation Bilateral carotid artery stenosis TIA (transient ischemic attack) Left carotid artery stenosis COPD (chronic obstructive pulmonary disease) Atherosclerosis of [place] arteries of extremity with intermittent claudication RBBB Carotid bruit Depression GERD (gastroesophageal reflux disease) Atherosclerotic heart disease of [place] coronary artery without angina pectoris Insomnia Hyperlipidemia Right femoral fracture Fall Hip fracture Home Medications ?Medication ?Instructions ?Recorded ?Last Taken ?Type multivitamin 1 tab PO DAILY Supplement 05/20/20 03/22/21 History nitroglycerin 0.4 mg sublingual 0.4 mg sublingual Q5-15M PRN chest 11/26/20 Unknown Rx tablet pain #25 tabs vitamin B complex 1 cap PO DAILY SUPPLEMENT 03/22/21 03/22/21 History aspirin 81 mg tablet,delayed 81 mg PO DAILY 05/24/21 Unknown History release (Adult Low Dose Aspirin) metoprolol succinate 25 mg 25 mg PO DAILY #90 tabs 07/03/24 Unknown Rx tablet,extended release 24 hr atorvastatin 40 mg tablet 40 mg PO QHS cholesterol lowering 07/11/24 Unknown Rx #90 tabs chlorpheniramine maleate 4 mg 4 mg PO QHS 01/03/25 Unknown History tablet (Allergy (chlorpheniramine)) escitalopram oxalate 20 mg tablet 20 mg PO DAILY 03/29/25 Unknown History levocetirizine 5 mg tablet 5 mg PO DAILY allergies 03/29/25 Unknown History Allergy/AdvReac Type Severity Reaction Status Date / Time Penicillins Allergy Hives Verified 03/29/25 23:38 oxycodone AdvReac Unknown Unknown Verified 03/29/25 23:38 Family History Father Myocardial infarction, Onset Age: 68 Brother CAD (coronary artery disease) Myocardial infarction Hx of CABG Brother CHF (congestive heart failure) Surgical History H/O cardiac catheterization History of right-sided carotid endarterectomy (~09/30/20) History of left-sided carotid endarterectomy (~07/22/20) Hx of appendectomy Aortocoronary bypass status (~07/07/00) Social History household members: spouse Smoking Status: Former smoker alcohol intake: never substance use type: does not use caffeine: Yes ROS Constitutional Constitutional: Denies fatigue, fever(s), poor appetite, weight gain or weight loss Gastrointestinal Gastrointestinal: Denies belching, bloating, change in bowel habits, change in stool character, chewing difficulty, coffee ground emesis, constipation, cramping, diarrhea, dyspepsia, dysphagia, early satiety, excessive flatus, fecal incontinence, heartburn, hematemesis, hematochezia, hemorrhoids, loose stools, melena, nausea, odynophagia, rectal bleeding, tenesmus, vomiting or weight changes Physical Exam Const alert, oriented x3, no apparent distress and healthy appearing General Appearance: cooperative GI normal to inspection, nondistended, normoactive bowel sounds, soft to palpation, non-tender and non-distended Percussion: normal to percussion Rectal Exam: deferred Lab / Micro Data 03/31/25 03:17 03/31/25 03:17 Labs: Laboratory Results - last 24 hr 03/30/25 23:00: Hgb 12.1 L, Hct 35.3 L 03/31/25 03:17: WBC 12.1 H, RBC 3.73 L, Hgb 12.6 L, Hct 35.6 L, MCV 95.4 H, MCH 33.8 H, MCHC 35.4, RDW Std Deviation 49.8 H, RDW Coeff of Josh 14.3, Plt Count 219, MPV 9.0, Immature Gran % (Auto) 0.500, Neut % (Auto) 73.8 H, Lymph % (Auto) 12.8 L, [place] % (Auto) 12.0 H, Eos % (Auto) 0.6, Baso % (Auto) 0.3, Absolute Neuts (auto) 9.0 H, Absolute Lymphs (auto) 1.55, Nucleated RBC % 0, Sodium 136, Potassium 4.3, Chloride 100, Carbon Dioxide 26.2, Anion Gap 10, BUN 24 H, Creatinine 1.47 H, Estim Creat Clear Calc 48.03 L, Est GFR (MDRD) Non-Af 46 L, BUN/Creatinine Ratio 16.3, Glucose 94, Calcium 9.7, Phosphorus 2.8, Magnesium 2.1, Triglycerides 166, Cholesterol 133, LDL Cholesterol, Calc 67, VLDL Cholesterol 33, HDL Cholesterol 38 L, Cholesterol/HDL Ratio 3.49, Lipase 34 Assessment & Plan Assessment/Plan (1) Lactic acidosis: (2) Coffee ground emesis: (3) Vomiting: (4) Acute upper GI bleeding: (5) Duodenitis: PLAN: 89-year-old male admitted for evaluation and management of multiple active issues: Hematemesis (Upper GI Bleed):?Patient presented with [id number] emesis following forceful retching, suggesting possible Dixie-Oliveros tear, but the long history of food-relieved epigastric pain raises suspicion for an underlying peptic ulcer disease (likely duodenal, given CT findings of duodenitis). Hemoglobin is currently stable. Pancreatitis:?Suggested by diffuse fat stranding around the pancreatic head on CT and elevated WBC count. Lipase is normal, but clinical and imaging findings are concerning. The calcified gallstone in the gallbladder neck may be the etiology. Duodenitis:?Evident as diffuse thickening of the duodenal sweep on CT, likely related to the potential ulcer disease or inflammatory process from adjacent pancreatitis. Leukocytosis and Lactic Acidosis:?Elevated WBC count (20,000) and elevated lactic acid (3.2) indicate systemic inflammatory response syndrome (SIRS) likely due to the pancreatitis/duodenitis process, requiring close monitoring and aggressive fluid resuscitation. Plan GI Bleed Management: Continue NPO status. Initiate intravenous proton pump inhibitor (PPI) therapy immediately. Type and crossmatch blood; maintain high suspicion for active bleeding. Monitor serial hemoglobin and vital signs every 4-6 hours. Coordinate with GI weight loss consultant for urgent EGD (Esophagogastroduodenoscopy) to diagnose and treat the source of bleeding (e.g., ulcer, Dixie-Oliveros tear). Pancreatitis/Duodenitis Management: Aggressive intravenous fluid resuscitation (likely Lactated Ringer's) given the elevated lactate and evidence of inflammation. Pain management with IV analgesia. Monitor clinical course, abdominal pain, and repeat labs (CBC, CMP, Lipase, Lactate). Manage potential gallstone etiology in coordination with GI/Surgery once acute inflammation and bleeding are controlled. Medical History Management:?Continue baby aspirin while weighing the risks and benefits in the setting of an active GI bleed, pending GI recommendations. Monitor cardiac status closely given history of CAD. PLAN: Plan 89-year-old male admitted for evaluation and management of multiple active issues: Hematemesis (Upper GI Bleed):?Patient presented with hgg-tr-zzkyr emesis following forceful retching, suggesting possible Dixie-Oliveros tear, but the long history of food-relieved epigastric pain raises suspicion for an underlying peptic ulcer disease (likely duodenal, given CT findings of duodenitis). Hemoglobin is currently stable. Pancreatitis:?Suggested by diffuse fat stranding around the pancreatic head on CT and elevated WBC count. Lipase is normal, but clinical and imaging findings are concerning. The calcified gallstone in the gallbladder neck may be the etiology. Duodenitis:?Evident as diffuse thickening of the duodenal sweep on CT, likely related to the potential ulcer disease or inflammatory process from adjacent pancreatitis. Leukocytosis and Lactic Acidosis:?Elevated WBC count (20,000) and elevated lactic acid (3.2) indicate systemic inflammatory response syndrome (SIRS) likely due to the pancreatitis/duodenitis process, requiring close monitoring and aggressive fluid resuscitation. Plan GI Bleed Management: Continue NPO status after midnight. He can have clear liquids until midnight. Initiate intravenous proton pump inhibitor (PPI) therapy immediately. Type and crossmatch blood; maintain high suspicion for active bleeding. Monitor serial hemoglobin and vital signs . EGD (Esophagogastroduodenoscopy) to diagnose and treat the source of bleeding (e.g., ulcer, Dixie-Oliveros tear). Pancreatitis/Duodenitis Management: intravenous fluid resuscitation (likely Lactated Ringer's) given the elevated lactate and evidence of inflammation. Pain management with IV analgesia. Monitor clinical course, abdominal pain, and repeat labs (CBC, CMP, Lipase, Lactate). Manage potential gallstone etiology in coordination with GI/Surgery once acute inflammation and bleeding are controlled. Medical History Management:?Continue baby aspirin while weighing the risks and benefits in the setting of an active GI bleed, pending GI recommendations. Monitor cardiac status closely given history of CAD. Charges/Coding Visit Charges Inpatient E&M: 20769 Init Hosp L3
[2025-04-01] VITALS (10 sets, daily range): BP systolic 124–186; BP diastolic 52–93; PULSE 82–104; RESP 15–20; TEMP 36.2–36.9; O2SAT 92–96
[2025-04-01 03:35] LABS: Hematocrit 35.1 % (40-54); Hemoglobin 12.5 g/dL (13.0-16.5); Immature Granulocytes Count 0.030 X10^3/uL (0.0-0.0); Mean Corp Hgb Conc 35.6 g/dL (32-36); Mean Corpuscular Volume 95.4 fL (80-94); Mean Platelet Vol. 8.8 fl (6.2-12.0); NRBC Flagged by Analyzer 0 % (0-5); Platelet Count 210 K/mm3 (150-450); RBC Distribution Width CV 13.7 % (11.6-14.6); RBC Distribution Width SD 48.0 fl (35.1-43.9); Red Blood Count 3.68 M/mm3 (4.6-6.2); White Blood Count 9.8 K/mm3 (4.4-11.0)
[2025-04-01 03:48] LABS: Prothrombin Time (Protime)PT. 14.1 SECONDS (11.7-14.9)
[2025-04-01 03:49] LABS: Partial Thromboplast Time 34.7 Seconds (24.1-36.2)
[2025-04-01 04:11] LABS: AST(SGOT) 30 U/L (<=37); Alanine Aminotransfer ALT/SGPT 10 U/L (<=46); Albumin, Serum 3.4 g/dL (3.4-4.8); Alkaline Phosphatase 98 U/L (40-129); Anion Gap 11 (5-15); BUN 23 mg/dL (4-19); BUN/Creat Ratio 18.5 RATIO (10-20); Bilirubin, Direct 0.44 mg/dL (0.00-0.30); Calcium,Total 9.5 mg/dL (7.6-11.0); Carbon Dioxide 23.9 mmol/L (21.0-32.0); Chloride 103 mmol/L (98-108); Estimated Creatinine Clearance 56.88 ml/min (50-250); Globulin 2.6 g/dL (2.2-4.2); Glucose 92 mg/dL (70-99); Potassium 4.1 mmol/L (3.3-5.1)
--- NOTE | 2025-04-01 08:59 | PCM.PN.HOSP ---
Reason for Visit Chief Complaint: Vomiting red-brown material Subjective Subjective Patient seen case was discussed with Dr. Fernandez plan is for patient to undergo endoscopic evaluation Objective Data Objective Data Vital Signs: Vital Signs Temp Pulse Resp BP Pulse Ox O2 Del Method 97.5 F L 89 18 164/76 H 96 Room Air 04/01/25 03:48 04/01/25 03:48 04/01/25 03:48 04/01/25 03:48 04/01/25 03:48 04/01/25 03:48 Oxygen Delivery Method Room Air Weight: 121.2 kg Body Mass Index (BMI) 36.2 Intake & Output: Intake and Output for Last 24 Hours 03/30/25 03/31/25 04/01/25 23:59 23:59 23:59 Intake Total 2235 / 2235 200 / 200 Output Total 100 / 100 Balance 2135 / 2135 200 / 200 Lab / Micro Data 04/01/25 03:12 04/01/25 03:12 Labs: Laboratory Results - last 24 hr 04/01/25 03:12: WBC 9.8, RBC 3.68 L, Hgb 12.5 L, Hct 35.1 L, MCV 95.4 H, MCH 34.0 H, MCHC 35.6, RDW Std Deviation 48.0 H, RDW Coeff of Josh 13.7, Plt Count 210, MPV 8.8, Immature Gran % (Auto) 0.300, Neut % (Auto) 69.5, Lymph % (Auto) 17.0 L, [place] % (Auto) 11.8 H, Eos % (Auto) 1.0, Baso % (Auto) 0.4, Absolute Neuts (auto) 6.8, Absolute Lymphs (auto) 1.66, Nucleated RBC % 0, PT 14.1, INR 1.1, APTT 34.7, Sodium 137, Potassium 4.1, Chloride 103, Carbon Dioxide 23.9, Anion Gap 11, BUN 23 H, Creatinine 1.23 H, Estim Creat Clear Calc 56.88, Est GFR (MDRD) Non-Af 57 L, BUN/Creatinine Ratio 18.5, Glucose 92, Calcium 9.5, Total Bilirubin 0.95, Direct Bilirubin 0.44 H, AST 30, ALT 10, Alkaline Phosphatase 98, Total Protein 6.0, Albumin 3.4, Globulin 2.6 Micro: Microbiology 03/29/25 23:49 Stool Stool Occult Blood (PRINCE) - Final Physical Exam Narrative GENERAL: cooperative HEENT: Atraumatic; normocephalic EYES; Anicteric, Normal Conjunctiva NECK; supple, normal thyroid, RESPIRATORY: Diminished to auscultation CARDIOVASCULAR: Regular S1 S2, GI: soft, normoactive bowel sounds, : No Renal angle tenderness; EXTREMITIES: No edema, no clubbing, MUSCULOSKELETAL: no muscle wasting NEURO: Awake; no lateralizing signs. SKIN: No Rash PSYCH; Flat affect Assessment & Plan Assessment/Plan (1) Coffee ground emesis: (2) Acute upper GI bleeding: (3) Lactic acidosis: (4) Duodenitis: (5) Coronary artery disease: QUALIFIERS: Associated angina: without angina Coronary Disease-Associated Artery/Lesion type: [place] artery [place] vs. transplanted heart: [place] heart Qualified Code(s): I25.10 - Atherosclerotic heart disease of [place] coronary artery without angina pectoris (6) Hypertension: QUALIFIERS: Hypertension type: primary hypertension Qualified Code(s): I10 - Essential (primary) hypertension PLAN: Plan Patient is an 89-year-old gentleman who presented to the emergency department with hematemesis following 3-day history of nausea and vomiting. 1. Upper GI bleed ? Patient presented with hematemesis following 3-day history of nausea and vomiting. Suspicion of possible Dixie-Oliveros entertained. Admitted to monitored bed started on Protonix patient is on aspirin held consultation placed to GI. Patient H&H on admission within normal limits will continue with monitoring ? 03/31/2025; H&H remained stable. Patient kept n.p.o. ?04/01/2025; case discussed with Dr. Stanford, plan is for patient to undergo endoscopic evaluation 2. Acute pancreatitis ? Patient presented with abdominal pain as well CT of the abdomen and pelvis obtained on admission demonstrated . Regional fat stranding of the pancreatic head and duodenum concerning for acute pancreatitis with possible reactive duodenitis. No pancreatic necrosis or pseudocyst formation at this moment. managed conservatively ? 03/31/2025; patient pain has resolved ? 3. Acute duodenitis ? Thought to be reactive as a result of pancreatitis patient started on PPI 4. Cholelithiasis with no CT evidence of acute cholecystitis. 5. Right kidney parapelvic cyst measures 2.4 x 4.1 x 2.1 cm. 6. 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 7. Lactic acidosis Secondary to hypoperfusion patient did receive IV fluid resuscitation 8. Coronary artery disease ? With previous CABG patient is on aspirin held given his presentation 9. Essential hypertension ? Patient antihypertensives held since patient was n.p.o. 10. Dyslipidemia ?Patient is on statin therapy, continued at home dose 11. COPD ? Currently not in exacerbation aerosol treatments as needed 12. Depression with anxiety ? Patient is on escitalopram 13. DVT prophylaxis ? Bilateral SCDs only given patient presented 14. Suspected dementia with agitation ? Plan is to continue to monitor Time spent in the patient's overall evaluation,decision-making process, review of diagnostic data, adjustment of management, discussion with other providers, nursing nursing and ancillary staff involved in patient's care documentation, 38 Minutes Charges/Coding Visit Charges Inpatient E&M: 85535 Subs Hosp L2
[2025-04-01] MEDS: Pantoprazole Sodium 40 MG in 0.9% Normal Saline (100mL MB+) 100 ML 300 MG IV ×2 (09:30→21:02)
[2025-04-01] MEDS: Lactated Ringers 1,000 ML 15 ML IV (16:12)
--- NOTE | 2025-04-01 16:45 | EGD_PTH ---
PATIENT: RANCHO MULLER LOC: [facility] U#:[id number] AGE/SX: 89/M ROOM: [facility] RE03/30/[address]: Dr. Cyrus Reese MD : [id number] BED: 1 DIS: 04/02/2025 SPEC #: [id number] RECD: 04/01/25 18:02 STATUS: JERRY REMarcos #: [id number] LANA: 04/01/25 16:[address]: Rodolfo Stanford DEPT: SURGICAL PATHOLOGY RECD BY: Nilay Ngo ENTERED: 04/02/25 10:25 SP TYPE: EGD BIOPSY OTHR DR: MD Dr. Carlitos Mota MD Dr. Prakash Chand, MD Heather Evans, [employer] HOUSE WORKER-C Doris Kenyon DR[employer] HOUSE WORKER-C SELWYN Scott Tissues: A - Duodenum, NOS Procedures: Surgery Specimen Level IV Comments: @ Ordering doctor for SUIV edited from to @ pippa CHRISTIANSON at 04/02/25 1025 @ Submitting doctor edited from to @ pippa CHRISTIANSON at 04/02/25 1025 HEADER OPERATION: EGD with biopsies PRE-OP DIAGNOSIS: Coffee ground emesis, acute upper GI bleeding, lactic acidosis TISSUE SUBMITTED: A- Duodenal ulcer biopsy MICROSCOPIC DIAGNOSIS A. Small intestine, duodenum, biopsy: - Irregular villous blunting with Yoel's gland hyperplasia and a focally increased mixed lymphoplasmacytic inflammatory cell infiltrate in the lamina propria and foci of extravasated blood in the superficial lamina propria, benign MICROSCOPIC DESCRIPTION Slides are reviewed. GROSS DESCRIPTION A. Received in fixative is one container labeled with the patient's name and designated Duodenal ulcer biopsy. The specimen consists of two irregular fragments of [place] tissue that measure 0.3 and 0.5 cm. The specimen is totally submitted in one cassette. [place] 04/02/2025 CPT:32653
--- NOTE | 2025-04-01 17:26 | PCM.PRE.AN2 ---
ASA Classification* ASA Classification ASA Classification: 3 Assessment & Plan Anesthesia* Anesthesia Assessment Anesthesia Assessment: Discussed sedation and/or anesthesia options, risks, benefits, and alternatives with patient/parents/legal guardian/POA. Questions invited. The patient/parents/legal guardian/POA seems to understand and agrees to proceed with anesthesia plan. Reviewed the physical assessment, medical history, allergy history and patient home medications list prior to surgery/procedure/anesthetic and documented any changes. Performed airway and anesthesia risk assessments. Anesthesia Type Anesthesia Type: MAC History Source History Obtained from:: Patient and Chart Anesthesia Focused Assessment* Temperature: 98.4 F Pulse Rate: 92 Blood Pressure: 159/93 Respiratory Rate: 18 Pulse Ox: 95 Oxygen Delivery Method: Room Air Airway Assessment Mouth opens: >3 cm Mallampati Score: II Teeth Condition: Dentures (Patient has full upper and lower dentures. They are out.) Neck Range of motion (ROM): Limited ROM (Severe Restriction) Labs Anesthesia Preop lab: CBC WBC, (4.4-11.0) 9.8 K/mm3 Today, 03:12 RBC, (4.6-6.2) 3.68 M/mm3 L Today, 03:12 Hgb, (13.0-16.5) 12.5 g/dL L Today, 03:12 Hct, (40-54) 35.1 % L Today, 03:12 Plt Count, (150-450) 210 K/mm3 Today, 03:12 CHEMISTRY Potassium, (3.3-5.1) 4.1 mmol/L Today, 03:12 Sodium, (133-145) 137 mmol/L Today, 03:12 Magnesium, (1.5-2.2) 2.1 mg/dL 03/31/25, 03:17 Phosphorus, (2.7-4.5) 2.8 mg/dL 03/31/25, 03:17 BUN, (4-19) 23 mg/dL H Today, 03:12 Creatinine, (0.70-1.20) 1.23 mg/dL H Today, 03:12 Glucose, (70-99) 92 mg/dL Today, 03:12 POC Glucose, (70-110) 121 mg/dL H 03/25/21, 03:19 TSH, (0.358-3.74) 0.95 uIU/mL 03/25/21, 22:45 COAG PT, (11.7-14.9) 14.1 SECONDS Today, 03:12 Pre-Assessment Diagnosis/Proposed Procedure Planned Operative Procedure(s): Esophagogastroduodenoscopy with possible cautery and/or injection therapy. 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 When Was Last Pacemaker Check QUESTION #4 FULL TEXT: You/Your Family Experience fever (hyperthermia) with Anesthesia Last Oral Intake Last Oral intake: Last Oral Intake NPO since 00:00 03/31/25 20:14 Meds taken in AM with sips of water? 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 Female HX of Motion Sickness HX of N/V After Surgery Non-Smoker Duration of Surgery greater than 60 minutes Number of Risk Factors PONV Score Height & Weight Height & Weight: Anesthesia: Height & Weight Height 6 ft 03/31/25 20:14 Weight: 121.2 kg 03/31/25 20:14 Body Mass Index (BMI) 36.2 03/31/25 20:14 Respiratory Assessment Respiratory Assessment - air brush operator: Respiratory Tract Infection Hx - air brush operator Hx Respiratory Tract Infection No 03/31/25 20:14 STOP Sleep Apnea STOP Sleep Apnea - air brush operator: STOP Sleep Apnea - air brush operator Hx Hypertension No 03/30/25 02:21 Hx Sleep Apnea No 03/30/25 02:21 CPAP BIPAP Do you snore loudly (louder No 03/30/25 02:21 than talking or can be heard Do you often feel tired/ Yes 03/30/25 02:21 fatigued/ sleepy during daytime? Has anyone observed you stop No 03/30/25 02:21 breathing during sleep? STOP Results Negative 03/30/25 02:21 QUESTION #5 FULL TEXT : Do you snore loudly (louder than talking or can be heard through closed doors)? 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 Specify any problems Hx of Preganancy in last 3 N/A 03/30/25 02:21 Months Nurse Filling Out Transfusion JLAMP 03/30/25 02:21 & Questions: Date: 03/30/25 03/30/25 02:21 Time: 02:22 03/30/25 02:21 Patient unable to answer at this time (ie. confused, unrespo /Reproduction History /Reproductive History - air brush operator: /Reproductive Hx- air brush operator Hx Now No 03/31/25 20:14 Gestational Age (in weeks): EDC: Hx Hx Para Hx Section SAB No 03/31/25 20:14 Does the father of the baby or his family experience fever w Father of the baby Malignant Hypertension history comment Active Medications Active Medications: Current Medications Generic Name Dose Route Start Last Admin Trade Name Freq PRN Reason Stop Dose Admin Pantoprazole Sodium 40 mg/ 100 mls @ 300 mls/hr 03/30/25 10:00 04/01/25 09:50 Sodium Chloride IV Infused Q12 BRITTNEY Infusion Lactated Ringer's 1,000 mls @ 15 mls/hr 04/01/25 16:00 04/01/25 16:12 IV 15 mls/hr .Q48H BRITTNEY Administration Morphine Sulfate 1 mg 03/30/25 02:45 Morphine 2 Mg/Ml Syringe IV Q3H PRN PRN Pain Score 6-10 Ondansetron HCl 4 mg 03/30/25 02:45 Ondansetron 4 Mg/2 Ml Vial IV Q8H PRN PRN NAUSEA/VOMITING Sodium Chloride 10 - 40 ml 03/30/25 02:38 03/31/25 08:08 0.9% Saline Lock 10 Ml Syringe IV 20 ml UD PRN Administration SALINE FLUSH PFSH Medical History History of stress test Aortic root dilatation Bilateral carotid artery stenosis TIA (transient ischemic attack) Left carotid artery stenosis COPD (chronic obstructive pulmonary disease) Atherosclerosis of [place] arteries of extremity with intermittent claudication RBBB Carotid bruit Depression GERD (gastroesophageal reflux disease) Atherosclerotic heart disease of [place] coronary artery without angina pectoris Insomnia Hyperlipidemia Right femoral fracture Fall Hip fracture Home Medications ?Medication ?Instructions ?Recorded ?Last Taken ?Type multivitamin 1 tab PO DAILY Supplement 05/20/20 03/22/21 History nitroglycerin 0.4 mg sublingual 0.4 mg sublingual Q5-15M PRN chest 11/26/20 Unknown Rx tablet pain #25 tabs vitamin B complex 1 cap PO DAILY SUPPLEMENT 03/22/21 03/22/21 History aspirin 81 mg tablet,delayed 81 mg PO DAILY 05/24/21 Unknown History release (Adult Low Dose Aspirin) metoprolol succinate 25 mg 25 mg PO DAILY #90 tabs 07/03/24 Unknown Rx tablet,extended release 24 hr atorvastatin 40 mg tablet 40 mg PO QHS cholesterol lowering 07/11/24 Unknown Rx #90 tabs chlorpheniramine maleate 4 mg 4 mg PO QHS 01/03/25 Unknown History tablet (Allergy (chlorpheniramine)) escitalopram oxalate 20 mg tablet 20 mg PO DAILY 03/29/25 Unknown History levocetirizine 5 mg tablet 5 mg PO DAILY allergies 03/29/25 Unknown History Allergy/AdvReac Type Severity Reaction Status Date / Time Penicillins Allergy Hives Verified 03/29/25 23:38 oxycodone AdvReac Unknown Unknown Verified 03/29/25 23:38 Family History Father Myocardial infarction, Onset Age: 68 Brother CAD (coronary artery disease) Myocardial infarction Hx of CABG Brother CHF (congestive heart failure) Surgical History H/O cardiac catheterization History of right-sided carotid endarterectomy (~09/30/20) History of left-sided carotid endarterectomy (~07/22/20) Hx of appendectomy Aortocoronary bypass status (~07/07/00) Social History household members: spouse Smoking Status: Former smoker alcohol intake: never substance use type: does not use caffeine: Yes Review of Systems (Anesthesia) ROS Narrative System reviewed and no additional complaints, except as documented.
[2025-04-01] MEDS: Lactated Ringers 1,000 ML 1000 ML IV (17:48)
--- NOTE | 2025-04-01 18:02 | PCM.POST.ANE ---
Anesthesia: Postop Eval I Current Vital Signs Temperature: 97.9 F Pulse Rate: 97 Blood Pressure: 145/52 Respiratory Rate: 20 Pulse Ox: 95 Oxygen Delivery Method: Room Air Assessment Airway patent: Yes Spontaneous unlabored respirations: Yes Mental status: Awake and Calm nausea: No Vomiting: No Anesthesia Complication: No Fluid Hydration Crystalloid volume administer (ml): 400 Total IV fluid infused: 400 Progress Note Anesthesia document: Postop Eval 1 completed: Yes
--- NOTE | 2025-04-01 18:05 | OP.EGD_ITS ---
Patient Name: Steven Hutson Procedure Date: 04/01/2025 5:43 PM Date of : 1935 Age: 89 Procedure: Upper GI endoscopy Indications: Epigastric abdominal pain, Iron deficiency anemia Providers: Rodolfo Stanford DO Medicines: Monitored Anesthesia Care Patient Profile: This is an 89 year old male. Refer to note in patient chart for documentation of history and physical. Patient has symptoms of acute epigastric abdominal pain. Complications: No immediate complications. Procedure: Pre-Anesthesia Assessment: - Prior to the procedure, a History and Physical was performed, and patient medications and allergies were reviewed. The patient is competent. The risks and benefits of the procedure and the sedation options and risks were discussed with the patient. All questions were answered and informed consent was obtained. Patient identification and proposed procedure were verified by the physician in the pre-procedure area. Mental Status Examination: alert and oriented. Airway Examination: normal oropharyngeal airway and neck mobility. Respiratory Examination: clear to auscultation. CV Examination: normal. Prophylactic Antibiotics: The patient does not require prophylactic antibiotics. Prior Anticoagulants: The patient has taken no anticoagulant or antiplatelet agents except for NSAID medication. ASA Grade Assessment: II - A patient with mild systemic disease. After reviewing the risks and benefits, the patient was deemed in satisfactory condition to undergo the procedure. The anesthesia plan was to use monitored anesthesia care (MAC). Immediately prior to administration of medications, the patient was re-assessed for adequacy to receive sedatives. The heart rate, respiratory rate, oxygen saturations, blood pressure, adequacy of pulmonary ventilation, and response to care were monitored throughout the procedure. The physical status of the patient was re-assessed after the procedure. After obtaining informed consent, the endoscope was passed under direct vision. Throughout the procedure, the patient's blood pressure, pulse, and oxygen saturations were monitored continuously. The gastroscope was introduced through the mouth, and advanced to the fourth part of the duodenum. Small bowel enteroscopy was deemed necessary. The upper GI endoscopy was accomplished without difficulty. The patient tolerated the procedure well. Scope In: 5:52:51 PM Scope Out: 5:54:57 PM Total Procedure Duration Time 0 hours 2 minutes 6 seconds Findings: LA Grade C (one or more mucosal breaks continuous between tops of 2 or more mucosal folds, less than 75% circumference) esophagitis with no bleeding was found 34 to 38 cm from the incisors. No gross lesions were noted in the entire examined stomach. Four oozing cratered duodenal ulcers with no stigmata of bleeding were found in the first portion of the duodenum, in the second portion of the duodenum and in the third portion of the duodenum. The largest lesion was 10 mm in largest dimension. Biopsies were taken with a cold forceps for histology. Verification of patient identification for the specimen was done. Estimated blood loss was minimal. An acquired benign-appearing, intrinsic severe stenosis was found in the first portion of the duodenum and was traversed. Impression: - LA Grade C erosive esophagitis with no bleeding. - No gross lesions in the entire stomach. - Oozing duodenal ulcers with no stigmata of bleeding. Biopsied. - Acquired duodenal stenosis. Recommendation: - [facility]. - Full liquid diet. - Continue present medications. - Await pathology results. - Use Protonix (pantoprazole) 40 mg PO BID for 6 months. - Use sucralfate tablets 1 gram PO BID for 2 months. - Repeat upper endoscopy in 3 months to evaluate the response to therapy. Procedure Code(s): --- Professional --- 61556, Small intestinal endoscopy, enteroscopy beyond second portion of duodenum, not including ileum; with biopsy, single or multiple CPT copyright 2021 [employer]. All rights reserved. The codes documented in this report are preliminary and upon auditing coder review may be revised to meet current compliance requirements. Rodolfo Stanford DO 04/01/2025 6:05:04 PM This report has been signed electronically. Number of Addenda: 0 Note Initiated On: 04/01/2025 5:43 PM
--- NOTE | 2025-04-01 18:05 | OP.PROVAT_ITS ---
04/01/2025 Carl[address] King [address] [facility] [address] [place] [address] Re : Upper GI endoscopy procedure for Steven Hutson Dear Dr. King This procedure was performed on Tuesday, April 01, 2025. My impressions and recommendations are as follows: Impressions : - LA Grade C erosive esophagitis with no bleeding. - No gross lesions in the entire stomach. - Oozing duodenal ulcers with no stigmata of bleeding. Biopsied. - Acquired duodenal stenosis. Recommendations : - [facility]. - Full liquid diet. - Continue present medications. - Await pathology results. - Use Protonix (pantoprazole) 40 mg PO BID for 6 months. - Use sucralfate tablets 1 gram PO BID for 2 months. - Repeat upper endoscopy in 3 months to evaluate the response to therapy. My findings are described in the full procedure note, which is enclosed. If I can be of further assistance, please feel free to contact me at . Sincerely, Rodolfo Stanford, 04/01/2025 6:05:04 PM This report has been signed electronically.
--- NOTE | 2025-04-01 20:35 | POSTOPAN2_ITS ---
Anesthesia Postop Eval I Sum Postop Eval Completion status Anesthesia document: Postop Eval 1 completed: Yes Anesthesia Postop Eval I Summary Anesthesia Postop Eval I Summary: Anesthesia Postop Eval I: Assessment Summary Airway patent Yes 04/01/25 18:02 CREDIT [email or web address] Spontaneous unlabored Yes 04/01/25 18:02 CREDIT [email or web address] respirations Mental status Awake,Calm 04/01/25 18:02 CREDIT [email or web address] nausea No 04/01/25 18:02 CREDIT [email or web address] Vomiting No 04/01/25 18:02 CREDIT [email or web address] Anesthesia Postop Eval I: Fluid Summary Crystalloid volume administer 400 04/01/25 18:02 CREDIT [email or web address] (ml) Colloids volume administered ( ml) Blood Product volume administered (ml) Total IV fluid infused 400 04/01/25 18:02 CREDIT [email or web address] Anesthesia Postop Eval I: Summary Notes Anesthesia Complication No 04/01/25 18:02 CREDIT [email or web address] Anesthesia Complication Comment: Post-operative progress note Anesthesia: Postop Eval II Evaluation Mental status: Awake and Calm Pain Level: 0 nausea: No Vomiting: No Complications Anesthesia Complication: No
--- NOTE | 2025-04-01 20:35 | PCM.POSTANE2 ---
Anesthesia Postop Eval I Sum Postop Eval Completion status Anesthesia document: Postop Eval 1 completed: Yes Anesthesia Postop Eval I Summary Anesthesia Postop Eval I Summary: Anesthesia Postop Eval I: Assessment Summary Airway patent Yes 04/01/25 18:02 NEIGHBORHOOD [email or web address] Spontaneous unlabored Yes 04/01/25 18:02 NEIGHBORHOOD [email or web address] respirations Mental status Awake,Calm 04/01/25 18:02 NEIGHBORHOOD [email or web address] nausea No 04/01/25 18:02 NEIGHBORHOOD [email or web address] Vomiting No 04/01/25 18:02 NEIGHBORHOOD [email or web address] Anesthesia Postop Eval I: Fluid Summary Crystalloid volume administer 400 04/01/25 18:02 NEIGHBORHOOD [email or web address] (ml) Colloids volume administered ( ml) Blood Product volume administered (ml) Total IV fluid infused 400 04/01/25 18:02 NEIGHBORHOOD COORDINATOR.[email or web address] Anesthesia Postop Eval I: Summary Notes Anesthesia Complication No 04/01/25 18:02 NEIGHBORHOOD [email or web address] Anesthesia Complication Comment: Post-operative progress note Anesthesia: Postop Eval II Evaluation Mental status: Awake and Calm Pain Level: 0 nausea: No Vomiting: No Complications Anesthesia Complication: No
[2025-04-01] MEDS: 0.9% Saline Lock 10 ML Syringe IV (21:05)
[2025-04-02 03:24] VITALS: BP 174/74; PULSE 88; RESP 18; TEMP 36.3; O2SAT 99
[2025-04-02 04:03] VITALS: BP 169/77; PULSE 87
[2025-04-02 04:06] VITALS: PULSE 87
[2025-04-02] MEDS: 0.9% Saline Lock 10 ML Syringe IV (04:06)
[2025-04-02 04:20] VITALS: BP 149/71
[2025-04-02 05:00] LABS: Hematocrit 34.9 % (40-54); Hemoglobin 12.1 g/dL (13.0-16.5); Immature Granulocytes Count 0.040 X10^3/uL (0.0-0.0); Mean Corp Hgb Conc 34.7 g/dL (32-36); Mean Corpuscular Volume 95.6 fL (80-94); Mean Platelet Vol. 8.8 fl (6.2-12.0); NRBC Flagged by Analyzer 0 % (0-5); Platelet Count 221 K/mm3 (150-450); RBC Distribution Width CV 13.3 % (11.6-14.6); RBC Distribution Width SD 46.7 fl (35.1-43.9); Red Blood Count 3.65 M/mm3 (4.6-6.2); White Blood Count 9.5 K/mm3 (4.4-11.0)
[2025-04-02 05:34] LABS: Anion Gap 12 (5-15); BUN 19 mg/dL (4-19); BUN/Creat Ratio 17.6 RATIO (10-20); Calcium,Total 9.2 mg/dL (7.6-11.0); Carbon Dioxide 21.5 mmol/L (21.0-32.0); Chloride 101 mmol/L (98-108); Estimated Creatinine Clearance 65.38 ml/min (50-250); Glucose 88 mg/dL (70-99); Potassium 3.9 mmol/L (3.3-5.1)
--- NOTE | 2025-04-02 06:07 | PCM.PN.HOSP ---
Reason for Visit Chief Complaint: Vomiting red-brown material Subjective Subjective Patient underwent EGD by Dr. Stanford findings and recommendations as below Objective Data Objective Data Vital Signs: Vital Signs Temp Pulse Resp BP Pulse Ox O2 Del Method 97.4 F L 87 18 149/71 H 99 Room Air 04/02/25 03:24 04/02/25 04:06 04/02/25 03:24 04/02/25 04:20 04/02/25 03:24 04/02/25 03:24 Oxygen Delivery Method Room Air Weight: 121.2 kg Body Mass Index (BMI) 36.2 Intake & Output: Intake and Output for Last 24 Hours 03/31/25 04/01/25 04/02/25 23:59 23:59 23:59 Intake Total 200 / 200 528.25 / 678.25 150 / 150 Balance 200 / 200 528.25 / 678.25 150 / 150 Lab / Micro Data 04/02/25 04:20 04/02/25 04:20 Labs: Laboratory Results - last 24 hr 04/02/25 04:20: WBC 9.5, RBC 3.65 L, Hgb 12.1 L, Hct 34.9 L, MCV 95.6 H, MCH 33.2 H, MCHC 34.7, RDW Std Deviation 46.7 H, RDW Coeff of Josh 13.3, Plt Count 221, MPV 8.8, Immature Gran % (Auto) 0.400, Neut % (Auto) 72.7 H, Lymph % (Auto) 13.8 L, [place] % (Auto) 11.6 H, Eos % (Auto) 1.2, Baso % (Auto) 0.3, Absolute Neuts (auto) 6.9, Absolute Lymphs (auto) 1.31, Nucleated RBC % 0, Sodium 134, Potassium 3.9, Chloride 101, Carbon Dioxide 21.5, Anion Gap 12, BUN 19, Creatinine 1.07, Estim Creat Clear Calc 65.38, Est GFR (MDRD) Non-Af 67, BUN/Creatinine Ratio 17.6, Glucose 88, Calcium 9.2 Micro: Microbiology 03/29/25 23:49 Stool Stool Occult Blood (PRINCE) - Final Physical Exam Narrative GENERAL: cooperative HEENT: Atraumatic; normocephalic EYES; Anicteric, Normal Conjunctiva NECK; supple, normal thyroid, RESPIRATORY: Diminished to auscultation CARDIOVASCULAR: Regular S1 S2, GI: soft, normoactive bowel sounds, : No Renal angle tenderness; EXTREMITIES: No edema, no clubbing, MUSCULOSKELETAL: no muscle wasting NEURO: Awake; no lateralizing signs. SKIN: No Rash PSYCH; Flat affect Assessment & Plan Assessment/Plan (1) Coffee ground emesis: (2) Acute upper GI bleeding: (3) Lactic acidosis: (4) Duodenitis: (5) Coronary artery disease: QUALIFIERS: Associated angina: without angina Coronary Disease-Associated Artery/Lesion type: [place] artery [place] vs. transplanted heart: [place] heart Qualified Code(s): I25.10 - Atherosclerotic heart disease of [place] coronary artery without angina pectoris (6) Hypertension: QUALIFIERS: Hypertension type: primary hypertension Qualified Code(s): I10 - Essential (primary) hypertension PLAN: Plan Patient is an 89-year-old gentleman who presented to the emergency department with hematemesis following 3-day history of nausea and vomiting. 1. Upper GI bleed ? Patient presented with hematemesis following 3-day history of nausea and vomiting. Suspicion of possible [place] entertained. Admitted to monitored bed started on Protonix patient is on aspirin held consultation placed to GI. Patient H&H on admission within normal limits will continue with monitoring ? 03/31/2025; H&H remained stable. Patient kept n.p.o. ?04/01/2025; case discussed with Dr. Stanford, plan is for patient to undergo endoscopic evaluation ? 04/02/2025; patient underwent EGD by Dr. Stanford on 04/01/2025 findings and recommendations as below Impressions : - LA Grade C erosive esophagitis with no bleeding. - No gross lesions in the entire stomach. - Oozing duodenal ulcers with no stigmata of bleeding. Biopsied. - Acquired duodenal stenosis. Recommendations : - [facility]. - Full liquid diet. - Continue present medications. - Await pathology results. - Use Protonix (pantoprazole) 40 mg PO BID for 6 months. - Use sucralfate tablets 1 gram PO BID for 2 months. - Repeat upper endoscopy in 3 months to evaluate the response to therapy. 2. Acute pancreatitis ? Patient presented with abdominal pain as well CT of the abdomen and pelvis obtained on admission demonstrated . Regional fat stranding of the pancreatic head and duodenum concerning for acute pancreatitis with possible reactive duodenitis. No pancreatic necrosis or pseudocyst formation at this moment. managed conservatively ? 03/31/2025; patient pain has resolved ? 3. Acute duodenitis ? Thought to be reactive as a result of pancreatitis patient started on PPI 4. Cholelithiasis with no CT evidence of acute cholecystitis. 5. Right kidney parapelvic cyst measures 2.4 x 4.1 x 2.1 cm. 6. 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 7. Lactic acidosis Secondary to hypoperfusion patient did receive IV fluid resuscitation 8. Coronary artery disease ? With previous CABG patient is on aspirin held given his presentation 9. Essential hypertension ? Patient antihypertensives held since patient was n.p.o. 10. Dyslipidemia ?Patient is on statin therapy, continued at home dose 11. COPD ? Currently not in exacerbation aerosol treatments as needed 12. Depression with anxiety ? Patient is on escitalopram 13. DVT prophylaxis ? Bilateral SCDs only given patient presented 14. Suspected dementia with agitation ? Plan is to continue to monitor Time spent in the patient's overall evaluation,decision-making process, review of diagnostic data, adjustment of management, discussion with other providers, nursing nursing and ancillary staff involved in patient's care documentation, 38 Minutes
--- NOTE | 2025-04-02 07:52 | DS.PCM_ITS ---
Providers Date of Admission: 03/30/25 Date of Discharge: 04/02/25 Primary Care Physician: Dr. Carlitos King MD Consultations 03/30/25 02:55 Consult: Gastroenterology Routine Consulting Provider: [facility] Reason for Consult: Hematemesis EMERGENT Consult: No MD Notified: Yes Date Notified: 03/30/25 Time Notified: 06:40 Method of Notification: Text Reason For Visit: UPPER GI BLEED Diagnosis Discharge Diagnosis (1) Coffee ground emesis: Status: Acute Code(s): K92.0 - Hematemesis (2) Acute upper GI bleeding: Status: Acute Code(s): K92.2 - Gastrointestinal hemorrhage, unspecified (3) Lactic acidosis: Status: Acute Code(s): E87.20 - Acidosis, unspecified (4) Duodenitis: Status: Acute Code(s): K29.80 - Duodenitis without bleeding (5) Coronary artery disease: Status: Acute Code(s): I25.10 - Atherosclerotic heart disease of [place] coronary artery without angina pectoris Qualifiers: Coronary Disease-Associated Artery/Lesion type: [place] artery [place] vs. transplanted heart: [place] heart Associated angina: without angina Q ualified Code(s): I25.10 - Atherosclerotic heart disease of [place] coronary artery without angina pectoris (6) Hypertension: Status: Chronic Code(s): I10 - Essential (primary) hypertension Qualifiers: Hypertension type: primary hypertension Qualified Code(s): I10 - Essential (primary) hypertension Plan Patient is an 89-year-old gentleman who presented to the emergency department with hematemesis following 3-day history of nausea and vomiting. 1. Upper GI bleed ? Patient presented with hematemesis following 3-day history of nausea and vomiting. Suspicion of possible [place] entertained. Admitted to monitored bed started on Protonix patient is on aspirin held consultation placed to GI. Patient H&H on admission within normal limits will continue with monitoring ? 03/31/2025; H&H remained stable. Patient kept n.p.o. ?04/01/2025; case discussed with Dr. Stanford, plan is for patient to undergo endoscopic evaluation ? 04/02/2025; patient underwent EGD by Dr. Stanford on 04/01/2025 findings and recommendations as below Impressions : - LA Grade C erosive esophagitis with no bleeding. - No gross lesions in the entire stomach. - Oozing duodenal ulcers with no stigmata of bleeding. Biopsied. - Acquired duodenal stenosis. Recommendations : - [facility]. - Full liquid diet. - Continue present medications. - Await pathology results. - Use Protonix (pantoprazole) 40 mg PO BID for 6 months. - Use sucralfate tablets 1 gram PO BID for 2 months. - Repeat upper endoscopy in 3 months to evaluate the response to therapy. 2. Acute pancreatitis ? Patient presented with abdominal pain as well CT of the abdomen and pelvis obtained on admission demonstrated . Regional fat stranding of the pancreatic head and duodenum concerning for acute pancreatitis with possible reactive duodenitis. No pancreatic necrosis or pseudocyst formation at this moment. managed conservatively ? 03/31/2025; patient pain has resolved ? 3. Acute duodenitis ? Thought to be reactive as a result of pancreatitis patient started on PPI 4. Cholelithiasis with no CT evidence of acute cholecystitis. 5. Right kidney parapelvic cyst measures 2.4 x 4.1 x 2.1 cm. 6. 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 7. Lactic acidosis Secondary to hypoperfusion patient did receive IV fluid resuscitation 8. Coronary artery disease ? With previous CABG patient is on aspirin held given his presentation 9. Essential hypertension ? Patient antihypertensives held since patient was n.p.o. 10. Dyslipidemia ?Patient is on statin therapy, continued at home dose 11. COPD ? Currently not in exacerbation aerosol treatments as needed 12. Depression with anxiety ? Patient is on escitalopram 13. DVT prophylaxis ? Bilateral SCDs only given patient presented 14. Suspected dementia with agitation ? Plan is to continue to monitor Time spent in the patient's overall evaluation,decision-making process, review of diagnostic data, adjustment of management, discussion with other providers, nursing nursing and ancillary staff involved in patient's care documentation, 38 Minutes Medications at Discharge Home Medications multivitamin 1 tab PO DAILY Supplement 05/20/20 nitroglycerin 0.4 mg sublingual tablet 0.4 mg sublingual Q5-15M PRN chest pain #25 tabs 11/26/20 vitamin B complex 1 cap PO DAILY SUPPLEMENT 03/22/21 aspirin 81 mg tablet,delayed release (Adult Low Dose Aspirin) 81 mg PO DAILY 05/24/21 metoprolol succinate 25 mg tablet,extended release 24 hr 25 mg PO DAILY #90 tabs 07/03/24 atorvastatin 40 mg tablet 40 mg PO QHS cholesterol lowering #90 tabs 07/11/24 chlorpheniramine maleate 4 mg tablet (Allergy (chlorpheniramine)) 4 mg PO QHS 01/03/25 escitalopram oxalate 20 mg tablet 20 mg PO DAILY 03/29/25 levocetirizine 5 mg tablet 5 mg PO DAILY allergies 03/29/25 pantoprazole 40 mg tablet,delayed release (Protonix) 40 mg PO BID 6 months #360 tabs 04/02/25 sucralfate 1 gram tablet 1 g PO BID@0700,1600 60 days #120 tabs 04/02/25 Physical Exam Narrative GENERAL: cooperative HEENT: Atraumatic; normocephalic EYES; Anicteric, Normal Conjunctiva NECK; supple, normal thyroid, RESPIRATORY: Diminished to auscultation CARDIOVASCULAR: Regular S1 S2, GI: soft, normoactive bowel sounds, : No Renal angle tenderness; EXTREMITIES: No edema, no clubbing, MUSCULOSKELETAL: no muscle wasting NEURO: Awake; no lateralizing signs. SKIN: No Rash PSYCH; Flat affect Weight / BMI Weight Weight: 121.2 kg Body Mass Index (BMI) 36.2 ABG / Lab / Microbiology Data 04/02/25 04:20 04/02/25 04:20 Laboratory: Laboratory Results - last 24 hr 04/02/25 04:20: WBC 9.5, RBC 3.65 L, Hgb 12.1 L, Hct 34.9 L, MCV 95.6 H, MCH 33.2 H, MCHC 34.7, RDW Std Deviation 46.7 H, RDW Coeff of Josh 13.3, Plt Count 221, MPV 8.8, Immature Gran % (Auto) 0.400, Neut % (Auto) 72.7 H, Lymph % (Auto) 13.8 L, Henry % (Auto) 11.6 H, Eos % (Auto) 1.2, Baso % (Auto) 0.3, Absolute Neuts (auto) 6.9, Absolute Lymphs (auto) 1.31, Nucleated RBC % 0, Sodium 134, Potassium 3.9, Chloride 101, Carbon Dioxide 21.5, Anion Gap 12, BUN 19, Creatinine 1.07, Estim Creat Clear Calc 65.38, Est GFR (MDRD) Non-Af 67, BUN/Creatinine Ratio 17.6, Glucose 88, Calcium 9.2 Microbiology: Microbiology 03/29/25 23:49 Stool Stool Occult Blood (PRINCE) - Final D/C Instructions Discharge Activity: Return to Normal Activity Call your doctor if you observe: Fever of 101 or Higher, Shortness of breath, Fainting spells and Chest pain DC O2, CPAP, BIPAP Needs Home O2 Discharge instructions: No Meaningful Use Info Meaningful Use Meaningful Use Diagnoses (Choose all that apply): None applicable Discharge Plan Admission Admit Date/Time: 03/30/25 02:10 Attending Provider: Cyrus Reese Primary Care Provider: Carlitos King Consulting Providers: Kirt Godfrey; Rodolfo Stanford; Sophia Davis; Doris Kenyon; Deonna Warren; Pamela Nunn Discharge Orders/Prescriptions Prescriptions: New sucralfate 1 gram Tablet 1 g PO BID@0700,1600 60 Days Qty: 120 0RF pantoprazole [Protonix] 40 mg tablet,delayed release (DR/EC) 40 mg PO BID 180 Days Qty: 360 0RF Continued multivitamin Tablet 1 tab PO DAILY nitroglycerin 0.4 mg tablet, sublingual 0.4 mg SUBLINGUAL Q5-15M PRN (Reason: chest pain) Qty: 25 3RF Rx Instructions: until response; do not exceed 3 doses per event aspirin [Adult Low Dose Aspirin] 81 mg tablet,delayed release (DR/EC) 81 mg PO DAILY chlorpheniramine maleate [Allergy (chlorpheniramine)] 4 mg tablet 4 mg PO QHS vitamin B complex Capsule 1 cap PO DAILY escitalopram oxalate 20 mg tablet 20 mg PO DAILY levocetirizine 5 mg tablet 5 mg PO DAILY metoprolol succinate 25 mg tablet extended release 24 hr 25 mg PO DAILY Qty: 90 3RF atorvastatin 40 mg tablet 40 mg PO QHS Qty: 90 3RF Referrals / Follow Up: Carlitos King MD [Primary Care Provider, Family Practice] - Within 2 Weeks Rodolfo Stanford DO [Med Staff - Active Staff, Gastroenterology] - Within 1 Month Disposition Disposition (needs filled in before D/C Order can be placed): Home, Self Care Charges/Coding Visit Charges Inpatient E&M: 09629 Disch Hosp >30min
[2025-04-02 09:00] VITALS: BP 156/88; PULSE 84; RESP 16; TEMP 36.1; O2SAT 98
[2025-04-02] MEDS: Pantoprazole Sodium 40 MG in 0.9% Normal Saline (100mL MB+) 100 ML 300 MG IV (10:04)
--- NOTE | 2025-04-02 10:12 | CASEMGMT ---
Patient has order for discharge. RN CM in to discuss needs at discharge. Patient denies needs or help at discharge. Patient states is able to help if needed. P atient is up SBA with staff. Patient had no further questions or concerns.
--- NOTE | 2025-04-02 11:22 | PHA.DC_ITS ---
Pharmacy [facility] Counseling Pharmacy Service has performed discharge medication reconciliation and counseling for this patient. 1. PANTOPRAZOLE 40MG PO BID 2. SUCRALFATE 1GM PO BID The patient's discharge medication list was reviewed for discrepancies and discrepancies were resolved. The patient was counseled on the following discharge medications and changes in medications for homegoing were reviewed. The Reason for Use, instructions for use, and potential side effects were reviewed for all new medications. The patient's questions regarding all of their medications were answered. The patient was able to verbally demonstrate an understanding of their discharge medications. Medications at Discharge Home Medications multivitamin 1 tab PO DAILY Supplement 05/20/20 nitroglycerin 0.4 mg sublingual tablet 0.4 mg sublingual Q5-15M PRN chest pain #25 tabs 11/26/20 vitamin B complex 1 cap PO DAILY SUPPLEMENT 03/22/21 aspirin 81 mg tablet,delayed release (Adult Low Dose Aspirin) 81 mg PO DAILY 05/24/21 metoprolol succinate 25 mg tablet,extended release 24 hr 25 mg PO DAILY #90 tabs 07/03/24 atorvastatin 40 mg tablet 40 mg PO QHS cholesterol lowering #90 tabs 07/11/24 chlorpheniramine maleate 4 mg tablet (Allergy (chlorpheniramine)) 4 mg PO QHS 01/03/25 escitalopram oxalate 20 mg tablet 20 mg PO DAILY 03/29/25 levocetirizine 5 mg tablet 5 mg PO DAILY allergies 03/29/25 pantoprazole 40 mg tablet,delayed release (Protonix) 40 mg PO BID 6 months #360 tabs 04/02/25 sucralfate 1 gram tablet 1 g PO BID@0700,1600 60 days #120 tabs 04/02/25
== END 2025-04-02 11:43 | disposition home or self-care (01) | DRG 377 ==
LOC: ED 03-30 01:55 → PCU 03-30 02:26
PROVIDERS: Anesthesiology; Internal Medicine Gastroenterology; Admitting Provider Internal Medicine; Emergency Provider Emergency Medicine; PCP Family Medicine; Visit Provider Internal Medicine
PROC: 0DJ08ZZ Inspection of Upper Intestinal Tract, Via Natural or Artificial Opening Endoscopic (ICD-10-PCS; CPT 43235; principal; 2025-04-01 16:40)
DX: K92.0 Hematemesis (principal); K85.90 Acute pancreatitis without necrosis or infection, unspecified; K31.5 Obstruction of duodenum; E87.20 Acidosis, unspecified; F03.911 Unspecified dementia, unspecified severity, with agitation; M48.56XA Collapsed vertebra, not elsewhere classified, lumbar region, initial encounter for fracture; F03.93 Unspecified dementia, unspecified severity, with mood disturbance; J44.9 Chronic obstructive pulmonary disease, unspecified; I10 Essential (primary) hypertension; D50.9 Iron deficiency anemia, unspecified; I73.9 Peripheral vascular disease, unspecified; K26.9 Duodenal ulcer, unspecified as acute or chronic, without hemorrhage or perforation; K21.00 Gastro-esophageal reflux disease with esophagitis, without bleeding; K29.80 Duodenitis without bleeding; E78.5 Hyperlipidemia, unspecified; I25.10 Atherosclerotic heart disease of native coronary artery without angina pectoris; I45.10 Unspecified right bundle-branch block; K80.20 Calculus of gallbladder without cholecystitis without obstruction; T39.015A Adverse effect of aspirin, initial encounter; N28.1 Cyst of kidney, acquired; Z95.1 Presence of aortocoronary bypass graft; Z86.73 Personal history of transient ischemic attack (TIA), and cerebral infarction without residual deficits; Z79.82 Long term (current) use of aspirin; Z79.899 Other long term (current) drug therapy; Z87.891 Personal history of nicotine dependence
CPT/HCPCS: 36415; 74177; 80048; 80053; 80061; 80076; 81001; 82274; 83605; 83690; 83735; 84100; 85014; 85018; 85025; 85610; 85730; 86850; 86900; 86901; 88305; 93005; 99285; Q9967; A4216; J2405